=== PATIENT | female | born 1950 ===

== ENCOUNTER 2021-07-19 14:34 | Outpatient (REF) | payer OTHER, SELFPAY ==
--- NOTE | ~2021-07-19 | MM_ITS ---
EXAMINATION: BONE DENSITOMETRY CLINICAL INDICATION: Osteoporosis. COMPARISON: None (current study represents initial baseline exam). TECHNIQUE: Using a [employer] DXA System (software version: 13.1) manufactured by [employer], dual-energy x-ray absorptiometry was performed of the spine and left hip. The images are of good technical quality. Summary results are attached. FINDINGS: AP SPINE L1-L4: BMD 0.998 g/cm2, Z-score 0.4, T-score -1.5, osteopenia. LEFT FEMUR, NECK: BMD 0.743 g/cm2, Z-score -0.3, T-score -2.1, osteopenia. LEFT FEMUR, TOTAL: BMD 0.840 g/cm2, Z-score 0.3, T-score -1.3, osteopenia. IDENTIFIED RISK FACTORS: Low calcium intake, history of fracture (adult), menopause. HISTORY OF FRACTURE: Lower leg. MEDICATIONS: Vitamin D. MM/XR DEXA axial skeleton IMPRESSION: 1. DIAGNOSIS: Osteopenia based on the lowest T-score value of -2.1 in the femoral neck applying World Health Organization criteria. 2. 10-YEAR FRACTURE RISK PREDICTION, FRAX: Major osteoporotic fracture (clinical spine, forearm, hip or shoulder) 11.4%. Hip fracture 2.3%. 3. Treatment Recommendations: NOF guidelines recommend consideration for treatment in postmenopausal women and men age 50 and older presenting with the following: -A hip or vertebral (clinical or morphometric) fracture. -T-score less than or equal to -2.5 at the femoral neck or spine after appropriate evaluation to exclude secondary causes. -Low bone mass at the hip or spine and a 10-year fracture probability by FRAX of greater than or equal to 3% for hip fracture or greater than or equal to 20% for major osteoporotic fracture based on the [place] adapted WHO algorithm. 4. Other Recommendations: All treatment decisions require clinical judgment and consideration of individual patient factors, including patient preferences, comorbidities, previous drug use, risk factors not captured in the FRAX model (e.g. frailty, falls, vitamin D deficiency, increased bone turnover, interval significant decline in bone density) and possible under or overestimation of fracture risk by FRAX. Additional medical evaluation for secondary cause of low bone mineral density may be appropriate. FUTURE SCAN RECOMMENDATION: People with diagnosed cases of osteoporosis or at high risk for fracture should have regular bone mineral density tests. For patients eligible for Medicare, routine testing is allowed once every 2 years. The testing frequency can be increased to one year for patients who have rapidly progressing disease, those who are receiving or discontinuing medical therapy to restore bone mass, or have additional risk factors.
== END 2021-07-19 14:35 | disposition home or self-care (01) ==
LOC: HO.MAMMO 14:34
PROVIDERS: Visit Provider Family Medicine
DX: Z13.820 Encounter for screening for osteoporosis (principal); M85.80 Other specified disorders of bone density and structure, unspecified site; Z78.0 Asymptomatic menopausal state; Z87.81 Personal history of (healed) traumatic fracture; Z79.899 Other long term (current) drug therapy
CPT/HCPCS: 77080

== ENCOUNTER 2021-12-16 14:56 | Outpatient (REF) | payer OTHER, SELFPAY ==
--- NOTE | 2021-12-19 14:53 | MHC.AU.ANO ---
Adult Audiological Evaluation Date of Visit: 12/16/21 Reason for Appointment: Patient has been experiencing right-sided tinnitus. She also reports frequent pain on and around her right pinna. Ear History: Ear Deformity: None Reported Recent Ear Drainage: None Reported Recent Ear Pain: Right Ear Recent Ear Infections: None Reported Ear Infections in Childhood: None Reported History of Ear Wax Buildup: None Reported Previous Ear Surgery: None Reported Bothersome Tinnitus/Ringing/Noises in Ears: Right Ear Ear used on the phone: Both Ears Blocked/Full Sensation in Ear(s): None Reported History of occupational noise exposure?: Yes: [employer] for many years Medical History: Medical History: Head Injury, Heart Problems, High Blood Pressure, Migraines, Vascular Problems Medical History: Patient reports that she has been experiencing pain on the right side of her mouth and jaw since having teeth removed. Medication List: Lisinopril, Furosemide, Motrin, Ezetimibe, Repatha, Singulair, carisoprodol, Flovent, Aspirin Otoscopy: Right Ear: Unremarkable Left Ear: Unremarkable Tympanometry: Tympanometry performed due to: To assess integrity of the middle ear system Right Ear: Reduced Middle Ear Compliance (Type As) Left Ear: Reduced Middle Ear Compliance (Type As) Acoustic Reflexes: Ipsilateral Probe Right: 500 Hz: Present 1000 Hz: Present 2000 Hz: Present 4000 Hz: Present Probe Left: 500 Hz: Present 1000 Hz: Present 2000 Hz: Present 4000 Hz: Present Otoacoustic Emissions Frequency Range Used: 1.6-8 kHz Right Ear Results: Present Emissions Analysis: Present emissions suggest normal cochlear function- Rules out peripheral hearing loss greater than a mild degree Left Ear Results: Present Emissions Analysis: Present emissions suggest normal cochlear function- Rules out peripheral hearing loss greater than a mild degree Hearing Evaluation: Transducer(s) Used: Insert Earphones Method: Conventional Audiometry Stimuli Used: Pure Tones Right Ear: Description of Hearing: Normal hearing from 250-6000 Hz, mild sensorineural hearing loss at 8000 Hz Left Ear: Description of Hearing: Normal hearing from 250-8000 Hz Speech Recognition Threshold (SRT): Method Used: Recorded Lists Stimuli Used: Spondee Words Right Ear: 10 dBHL Left Ear: 10 dBHL Word Discrimination: Method: Recorded Lists Word Lists Used: W-22 Right Ear: 96% at 50 dBHL Left Ear: 100% at 50 dBHL Most Comfortable Level (MCL): Right Ear: 50 dBHL Left Ear: 50 dBHL Recommendations: Referral to Ear, Nose, and Throat may be warranted to further address right-sided tinnitus, right-sided ear pain, and slight asymmetry in hearing. It may also be beneficial to follow-up with the dentist to discuss on-going pain on right side of mouth/jaw, to determine if this may be contributing to patient's right-sided ear pain and tinnitus. Diagnosis: Primary Diagnosis: H93.11 Tinnitus, Right Ear Secondary Diagnosis: H90.41 SNHL Unilateral Right Ear, W/Unrestricted Contralateral Hearing Signature: Provider: Monica Laguna, CCC-A
== END 2021-12-16 14:57 | disposition home or self-care (01) ==
LOC: HO.SH 14:56
PROVIDERS: Visit Provider Family Medicine
DX: H93.11 Tinnitus, right ear (principal); H90.41 Sensorineural hearing loss, unilateral, right ear, with unrestricted hearing on the contralateral side
CPT/HCPCS: 92550; 92557; 92587

== ENCOUNTER 2023-03-30 15:06 | Outpatient (REF) | payer OTHER, SELFPAY ==
[2023-03-30 16:39] LABS: Folate 13.2 ng/mL (> or = 4.0); T4 Thyroxine 7.6 ug/dL (4.5-12.0); Thyroid Stimulating Hormone 1.51 uIU/mL (0.32-4.0); Vitamin B12 314 pg/mL (200-900); Vitamin D 25-OH Total 29.2 ng/mL (>30)
== END 2023-03-30 15:07 | disposition home or self-care (01) ==
LOC: HO.LAB 15:06
PROVIDERS: PCP Family Medicine; Visit Provider Psychiatry & Neurology Neurology
DX: G31.84 Mild cognitive impairment of uncertain or unknown etiology (principal); E55.9 Vitamin D deficiency, unspecified
CPT/HCPCS: 36415; 82306; 82607; 82746; 84436; 84443

== ENCOUNTER 2023-06-07 13:50 | Inpatient (IN) | payer OTHER, SELFPAY ==
[2023-06-07] VITALS (9 sets, daily range): BP systolic 149–198; BP diastolic 73–103; PULSE 71–79; RESP 14–18; TEMP 36.7–37.1; O2SAT 96–99; BMI 22.5
--- NOTE | ~2023-06-07 | MR_ITS ---
MRI OF THE BRAIN WITHOUT IV CONTRAST INDICATION: Vertigo. Rule out CVA. COMPARISON: Head CT 06/07/2023. TECHNIQUE: Multiplanar multisequence MR imaging of the brain was obtained without IV contrast. FINDINGS: There is no hydrocephalus, extra-axial surface collection, or herniation. There are T2 signal changes throughout the supratentorial white matter, likely moderate chronic microangiopathy. The major flow voids at the skull base are preserved. There is no acute infarct on diffusion-weighted imaging. There is no intracranial hemorrhage on the gradient recalled echo acquisition. Punctate focus of chronic hemosiderin staining within the left occipital lobe. The midline structures are normal. The cerebellar tonsils are normally positioned. The cerebellum and brainstem are normal. The craniocervical junction is normal. Osseous marrow signal intensity is homogenous. The visualized soft tissues are unremarkable. MR/MR head/brain wo con IMPRESSION: - No acute intracranial findings. No acute infarcts. - There is moderate chronic microangiopathy.
--- NOTE | ~2023-06-07 | CT_ITS ---
CT head/brain wo IV con CLINICAL INFORMATION: Reason for Exam dizziness since this morning COMPARISON: No prior CT scan available for comparison. TECHNIQUE: Department standard protocol. This CT examination was performed using dose optimization techniques as appropriate, variously including the following: *Automated exposure control *Adjustment of mA and/or kV according to patient size (this includes techniques or standardized protocols for targeted exams where dose is matched to indication/reason for exam; i.e. extremities or head) *Use of iterative reconstruction technique DLP: 679 mGy-cm FINDINGS: CEREBRAL HEMISPHERES: There is no evidence of intra-axial or extra-axial mass, hemorrhage or acute infarct. BRAIN PARENCHYMA: Normal ortiz-white matter differentiation. SUBDURAL SPACE: No bleed. BASAL GANGLIA AND PINEAL GLAND: Unremarkable VENTRICLES: Symmetric and normal in size. CEREBELLUM AND BRAINSTEM: No space-occupying mass, hemorrhage or acute infarct. CEREBELLOPONTINE ANGLES: No lesion found. ORBITS: No intraorbital mass. VESSELS: Unremarkable SKULL BASE: Unremarkable INCLUDED SINUSES AT SKULL BASE: Clear SKULL AND SKIN: No fracture or bone lesion found. CT/CT head/brain wo IV con IMPRESSION: No CT evidence of intracranial space-occupying mass, bleed or infarct.
--- NOTE | ~2023-06-07 | MR_ITS ---
EXAMINATION: MR ANGIOGRAM NECK WITHOUT AND WITH CONTRAST MR ANGIOGRAM HEAD WITHOUT AND WITH CONTRAST CLINICAL INFORMATION: Dizziness. COMPARISON: MR brain 06/08/2023. TECHNIQUE: An MR angiogram of the head and neck was performed without and with contrast. A total of 10 mL Gadavist was utilized for this examination. 3D images were processed on an independent workstation under concurrent supervision. Arterial stenoses are measured in accordance with NASCET criteria or similar method if applicable. FINDINGS: The aortic arch apex is normal. Origins of the major aortic branches are widely patent. Common carotid arteries are normal. A small amount of eccentric atheromatous plaque involves both carotid bifurcations. No stenosis of the extracranial internal carotid arteries. Cervical vertebral arteries are grossly patent and demonstrate normal antegrade flow. Intracranial internal carotid arteries are normal. The intradural vertebral artery segments and basilar artery are normal. Anterior, middle, and posterior cerebral artery complexes are normal. No intracranial large vessel occlusion. No identifiable aneurysm or high flow vascular lesion. MR/MR angio neck wo/w con IMPRESSION: There is a small amount of eccentric atheromatous plaque at both carotid bifurcations. Otherwise unremarkable MR angiogram of the head and neck. No stenosis of the cervical carotid or vertebral arteries. No intracranial large vessel occlusion.
--- NOTE | ~2023-06-07 | MR_ITS ---
EXAMINATION: MR ANGIOGRAM NECK WITHOUT AND WITH CONTRAST MR ANGIOGRAM HEAD WITHOUT AND WITH CONTRAST CLINICAL INFORMATION: Dizziness. COMPARISON: MR brain 06/08/2023. TECHNIQUE: An MR angiogram of the head and neck was performed without and with contrast. A total of 10 mL Gadavist was utilized for this examination. 3D images were processed on an independent workstation under concurrent supervision. Arterial stenoses are measured in accordance with NASCET criteria or similar method if applicable. FINDINGS: The aortic arch apex is normal. Origins of the major aortic branches are widely patent. Common carotid arteries are normal. A small amount of eccentric atheromatous plaque involves both carotid bifurcations. No stenosis of the extracranial internal carotid arteries. Cervical vertebral arteries are grossly patent and demonstrate normal antegrade flow. Intracranial internal carotid arteries are normal. The intradural vertebral artery segments and basilar artery are normal. Anterior, middle, and posterior cerebral artery complexes are normal. No intracranial large vessel occlusion. No identifiable aneurysm or high flow vascular lesion. MR/MR angio head wo/w con IMPRESSION: There is a small amount of eccentric atheromatous plaque at both carotid bifurcations. Otherwise unremarkable MR angiogram of the head and neck. No stenosis of the cervical carotid or vertebral arteries. No intracranial large vessel occlusion.
--- NOTE | 2023-06-07 14:48 | ECG_ITS ---
Test Reason : dizzy Blood Pressure : / mmHG Vent. Rate : 075 BPM Atrial Rate : 075 BPM P-R Int : 150 ms QRS Dur : 072 ms QT Int : 386 ms P-R-T Axes : 056 003 016 degrees QTc Int : 431 ms Normal sinus rhythm Normal ECG When compared with ECG of 04-AUG-2012 19:23, No significant change was found Referred By: Remberto Jones Electronically Signed By:DIANA FISCHER
--- NOTE | 2023-06-07 14:54 | ED.GENADULT ---
HPI - General Adult General Chief complaint: Dizziness Stated complaint: dizziness, near syncope Time Seen by Provider: 06/07/23 15:59 Source: patient Mode of arrival: ambulatory Limitations: no limitations History of Present Illness HPI narrative: patient is a 72-year-old female who presents to the emergency department for evaluation of dizziness and near syncopal episode. Patient reports that today while at [employer] she developed a generalized unwell feeling. Friends were concerned that she did not look well and appeared pale. She said that as the mass proceeded her dizziness sensation was progressively worsening. As a sensation of room spinning. But reports that she was feeling unsteady and like she was going to pass out. Reporting double vision with certain eye movements. The dizziness has been constant since it came on, without tinnitus, nausea. She also was endorsing a posterior headache. Denies any neck pain or neck stiffness. Denies any fevers chills, URI symptoms, chest pain shortness of breath current attending breathing, numbness or tingling of the extremities. Related Data Home Medications Medication Instructions Recorded Confirmed albuterol sulfate 90 mcg/actuation 1 puff inhalation NEEDED PRN 06/07/23 06/07/23 aerosol inhaler Shortness Of Breath aspirin 81 mg capsule 81 mg PO DAILY 06/07/23 06/07/23 carisoprodol 350 mg tablet 350 mg PO BID 06/07/23 06/07/23 carvedilol 6.25 mg tablet 6.25 mg PO BID 06/07/23 06/07/23 ezetimibe 10 mg tablet 10 mg PO DAILY 06/07/23 06/07/23 ferrous sulfate 325 mg (65 mg 325 mg PO 3XW 06/07/23 06/07/23 iron) tablet (iron) furosemide 20 mg tablet 20 mg PO DAILY 06/07/23 06/07/23 inclisiran 284 mg/1.5 mL 284 mg subcut DIRECTED 06/07/23 06/07/23 subcutaneous syringe (Leqvio) melatonin 5 mg capsule 5 mg PO DAILY 06/07/23 06/07/23 mometasone 200 mcg/actuation HFA 2 puff inhalation BID 06/07/23 06/07/23 aerosol inhaler (Asmanex HFA) montelukast 10 mg tablet 10 mg PO DAILY 06/07/23 06/07/23 olmesartan 20 mg tablet 20 mg PO DAILY 06/07/23 06/07/23 omeprazole 20 mg capsule,delayed 20 mg PO BID 06/07/23 06/07/23 release Allergies Allergy/AdvReac Type Severity Reaction Status Date / Time acetaminophen [From TYLENOL] Allergy Intermediate ITCHING Verified 06/07/23 21:17 epinephrine [EPINEPHRINE] Allergy Intermediate TACHYCARDIA Verified 06/07/23 21:17 iodine [IODINE] Allergy Intermediate RASH Verified 06/07/23 21:17 Penicillins [PENICILLINS] Allergy Intermediate ITCHING/HIV Verified 06/07/23 21:17 ES Sulfa (Sulfonamide Allergy Intermediate NAUSEA Verified 06/07/23 21:17 Antibiotics) [SULFA (SULFONAMIDE ANTIBIOTICS)] egg [EGG] Allergy Mild SENSITIVITY Verified 06/07/23 21:17 diclofenac [DICLOFENAC] Allergy Unknown HIVES Verified 06/07/23 21:17 levofloxacin [From LEVAQUIN] Allergy Unknown SEVERE Verified 06/07/23 21:17 ITCHING meperidine [Demerol] Allergy Unknown Rash Verified 06/07/23 21:17 penicillin V Allergy Unknown Rash Verified 06/07/23 21:17 procaine [From NOVOCAIN] Allergy Unknown UNKNOWN Verified 06/07/23 21:17 SHELLFISH Allergy Severe ANAPHYLAXIS Uncoded 07/05/20 17:09 eggs Allergy Unknown Rash Uncoded 06/07/23 21:17 Novocain Allergy Unknown Rash Uncoded 06/07/23 21:17 From DEMEROL AdvReac Intermediate HYPOTENSION Uncoded 07/05/20 17:09 Review of Systems Review of Systems: Constitutional : No Fever, No Chills, No Fatigue ENT/Mouth : No sore throat, No Rhinorrhea Eyes: No Eye Pain, No Swelling, No Redness, positive double vision Cardiovascular : No Chest Pain, No SOB, No Dyspnea on Exertion Respiratory : No Cough, No Sputum Gastrointestinal : No Nausea, No Vomiting, No Diarrhea, No abdominal Pain Genitourinary : No Dysuria, No Urinary Frequency, No Hematuria, Musculoskeletal : No joint pain, No Myalgias, No Joint Swelling Skin : No Skin Lesions, No rash Neuro : Positive dizziness. No Weakness, No Numbness, positive Headache Psych : No Anxiety/Panic, No Depression Heme/Lymph: No Bruising, No Bleeding, No Lymphadenopathy Endocrine : No Polyuria, No Polydipsia Yes all other systems are reviewed and are negative [facility] Past Medical History Attestation statement: The following information was validated with the patient. Source: old records reviewed Medical History Asthma COVID-19 long hauler Fibromyalgia GERD (gastroesophageal reflux disease) Hyperlipidemia Hypertension Hypoglycemia Lupus Mitral valve prolapse Social History Social History Household Members: Spouse Housing: House Do you presently have visiting nurse or other home services: No Alcohol intake: never Patient Tobacco Use Status: Never used Tobacco e-Cigarette/Vaping Use: Never Used Second Hand Smoke Exposure: No Advance Directives Date on File: 06/08/23 service: No Physical Exam ED Vital Signs: Vital Signs - 24 hr 06/07/23 14:43 06/07/23 15:02 06/07/23 16:29 Temperature 98.8 F 98.2 F Pulse Rate 79 78 75 Respiratory Rate 18 16 Blood Pressure 163/73 H 198/92 H 167/83 H Pulse Oximetry 99 99 Oxygen Delivery Method Room Air Room Air 06/07/23 16:31 06/07/23 16:31 06/07/23 18:08 Temperature 98.0 F Pulse Rate 77 78 71 Respiratory Rate 14 Blood Pressure 176/82 H 194/91 H 149/74 H Pulse Oximetry 96 Oxygen Delivery Method Room Air 06/07/23 19:09 06/07/23 19:10 06/07/23 19:11 Temperature Pulse Rate 74 72 76 Respiratory Rate Blood Pressure 174/83 H 195/102 H 174/103 H Pulse Oximetry Oxygen Delivery Method BMI result Body Mass Index 22.5 Appearance: Alert.?Oriented to person, place and time. No acute distress.?Normal affect. Eyes: Pupils equal, round and reactive to light.?EOMi. gaze evoked Phobia. ENT: Pharynx normal.?? Neck: Normal inspection.? Neck supple.?? no midline cervical spine tenderness, step-offs, deformities CVS: Heart sounds normal. Normal heart rate and rhythm.? Pulses normal.?? Respiratory: No respiratory distress.? Lung sounds clear to auscultation bilaterally?? Abdomen: Soft and non-tender. Normoactive bowel sounds. Skin: Skin warm and dry.? Normal skin color.? Extremities: No lower extremity edema.? No calf ttp? Neuro: No focal neurological deficit observed, CN II-XII intact, normal sensory observed, normal coordination observed. Level of consciousness: Appropriate for age. Motor strength: Proximal right upper extremity 5 /5, distal right upper extremity 5 /5, proximal left upper extremity 5 /5, distal left upper extremity 5 /5, right lower extremity 5 /5, left lower extremity 5 /5.? ataxic gait. Speech: Normal, [id number] test: abnormal on left, [id number] test: Normal. Course Course Course Narrative: RME: 72 yold female presents to the ED for dizziness since this morning and near synocpa episode that occurred at 12:30pm. Patient states she she leans her head down she feeel like she is about to fall. Neuro assesment negative for any neuro deficits. NIH 0. Rhomberg test negative. Eye exam checking for nystagmus she states left eye seeing double on left horizontal nygstamgus test. labs, head CT, and EKg ordered. Patient being brought to the ED to a room by charge nurse Amber. Reevaluation(s) Reevaluation #1: CBC is without leukocytosis or anemia. CMP is overall unremarkable. EKG revealing normal sinus rhythm, no acute ischemic abnormalities. Urinalysis unremarkable. Orthostatic vital signs are negative. CT of the head is without acute intracranial abnormality. Trial management with meclizine and and lorazepam been re-evaluated. Time: 17:13 Reevaluation #2: minimal improvement in dizziness despite meclizine and lorazepam, although she does endorse that her posterior headache has improved. continued concern for a posterior CVA given intractable dizziness; headache, diplopia, and ataxia, patient to be admitted to medicine service for further evaluation and treatment, accepted by Dr. Brunner Time: 20:17 Medications Administered Generic Name Dose Route Start Last Admin Trade Name Freq PRN Reason Stop Dose Admin Aspirin 81 mg 06/08/23 09:00 06/08/23 09:53 Aspirin 81 Mg Tab.Chew PO 81 mg DAILY KARSTEN Administration Atorvastatin Calcium 40 mg 06/08/23 09:00 06/08/23 09:53 Atorvastatin Calcium 40 Mg Tablet PO 40 mg DAILY KARSTEN Administration Ezetimibe 10 mg 06/08/23 09:00 06/08/23 09:52 Ezetimibe 10 Mg Tablet PO 10 mg DAILY KARSTEN Administration Enoxaparin Sodium 40 mg 06/07/23 22:00 06/07/23 21:42 Enoxaparin Sodium 40 Mg/0.4 Ml Syringe SUBCUT 40 mg Q24H KARSTEN Administration Ferrous Sulfate 324 mg 06/08/23 09:00 06/08/23 09:52 Ferrous Sulfate 324 Mg Tablet. PO 324 mg MoWeFr@0900 KARSTEN Administration Furosemide 20 mg 06/08/23 09:00 06/08/23 09:53 Furosemide 20 Mg Tablet PO 20 mg DAILY KARSTEN Administration Protocol Omeprazole 20 mg 06/08/23 06:30 06/08/23 06:33 Omeprazole 20 Mg Capsule. PO 20 mg BID@0630,1630 KARSTEN Administration Sodium Chloride 3 ml 06/08/23 00:00 06/08/23 09:35 0.9 % Sodium Chloride Flush 3 Ml Syringe IVFLUSH Not Given QSHIFT KARSTEN Discontinued Medications Generic Name Dose Route Start Last Admin Trade Name Freq PRN Reason Stop Dose Admin Aspirin 324 mg 06/07/23 21:33 06/07/23 21:43 Aspirin 81 Mg Tab.Chew PO 06/07/23 21:34 324 mg ONCE ONE Administration Lorazepam 2 mg 06/07/23 16:59 06/07/23 17:18 Lorazepam 1 Mg Tablet PO 06/07/23 17:00 2 mg ONCE ONE Administration Meclizine HCl 25 mg 06/07/23 16:59 06/07/23 17:18 Meclizine Hcl 25 Mg Tablet PO 06/07/23 17:00 25 mg ONCE ONE Administration Medical Decision Making Medical Decision Making [facility] Narrative: patient is a 72-year-old female with past medical history of GERD, hypertension, hyperlipidemia presenting to emergency department for evaluation of dizziness. orthostatic negative, no focal neuro deficits, no spontaneous nystagmus, dysarthria, dysphagia, dysphonia, dysmetria. Will obtain CBC to evaluate for leukocytosis/ anemia, CMP to evaluate for abnormal electrolytes /abnormal renal function/ abnormal hepatic function, EKG and troponin to evaluate for ischemia/ACS. concern at this time for BPPV verses central etiology, potential cerebellar stroke. Onset was not abrupt, progressively worsening and have been constant sources episodic. Reviewed this case with ED attending Dr. Campo, Will trial treatment with meclizine and lorazepam while awaiting studies then re-evaluate. Differential Diagnosis Differential Diagnoses: The differential diagnosis associated with the presentation includes ( CVA, cerebellar dysfunction, , [employer] mass, vertigo, electrolyte abnormality, anemia) Admission/Observation Consideration of admission/observation: Escalation of care including admission/observation considered ( I considered admission for dizziness, see course narrative for further detail) Consult Healthcare Provider Management of the patient was discussed with: Hospitalist ( see course narrative for further detail) Lab Data MDM Lab Attestation statement: I reviewed the patient's lab results. ( see course narrative for further detail) 06/07/23 16:15 06/07/23 16:15 Labs: Lab Results 06/07/23 06/07/23 06/07/23 Range/Units 15:37 16:15 16:15 WBC 6.5 (4.8-10.8) X10*3/uL RBC 4.80 (4.20-5.50) X10*6/uL Hgb 13.1 (12.0-16.0) g/dl Hct 41.2 (37.0-47.0) % MCV 85.8 (80.0-98.0) fL MCH 27.3 (27.0-33.0) pg MCHC 31.8 (31.0-35.0) g/dl RDW 12.8 (11.0-16.0) % Plt Count 236 (160-400) X10*3/uL MPV 9.6 (9.4-12.3) fL Immature Gran % (Auto) 0.3 (0.0-0.4) % Neut % (Auto) 68.1 (45-73) % Lymph % (Auto) 21.3 (20-40) % [place] % (Auto) 7.3 (2-11) % Eos % (Auto) 2.5 (0-4) % Baso % (Auto) 0.5 (0-2) % Lymph # (Auto) 1.4 (1.2-4.9) X10*3/uL [place] # (Auto) 0.5 (0.1-1.2) X10*3/uL Eos # (Auto) 0.2 (0.0-0.4) X10*3/uL Baso # (Auto) 0.0 (0.0-0.2) X10*3/uL Abs Immat Gran (auto) 0.02 (0.00-0.03) X10*3/uL Absolute Neuts (auto) 4.4 (2.0-8.3) x10*3/uL Absolute Nucleated RBC 0.000 (0.0-0.012) X10*3/uL Nucleated RBC % (auto) 0.0 (0.0-0.2) /100WBC PT (11.1-13.3) SEC INR (0.9-1.1) APTT (26.0-36.4) SEC Sodium 142 (135-145) mmol/L Potassium 3.6 (3.3-5.1) mmol/L Chloride 108 (96-108) mmol/L Carbon Dioxide 25 (22-29) mmol/L Anion Gap 13 (12-20) BUN 12 (9-16) mg/dL Creatinine 0.78 (0.5-1.4) mg/dL Estim Creat Clear Calc 52.3 Estimated GFR > 60 POC Glucose 125 H (60-115) mg/dL Random Glucose 130 H (60-115) mg/dL Calcium 9.5 (8.4-10.2) mg/dL Total Bilirubin 0.2 (0.0-1.0) mg/dL AST 25 (5-31) U/L ALT 20 (0-31) U/L Alkaline Phosphatase 87 (39-117) U/L Total Protein 6.9 (6.5-8.0) g/dL Albumin 4.1 (3.5-5.0) g/dL Triglycerides 155 mg/dL Cholesterol 125 mg/dL LDL Cholesterol, Calc 43 mg/dl HDL Cholesterol 51 mg/dL Urine Color Urine Appearance Urine pH (5.0-9.0) Ur Specific [place] (1.005-1.025) Urine Protein (Neg-Trace) mg/dL Urine Glucose (UA) (Negative) mg/dL Urine Ketones (Negative) mg/dL Urine Blood (Negative) Urine Nitrite (Negative) Ur Leukocyte Esterase (Negative) Influenza Type A (PCR) (Negative) Influenza Type B (PCR) (Negative) RSV RNA Qual (PCR) (Negative) SARS-CoV-2 RNA (RT-PCR) (Negative) 06/07/23 06/07/23 06/07/23 Range/Units 16:50 19:20 20:46 WBC (4.8-10.8) X10*3/uL RBC (4.20-5.50) X10*6/uL Hgb (12.0-16.0) g/dl Hct (37.0-47.0) % MCV (80.0-98.0) fL MCH (27.0-33.0) pg MCHC (31.0-35.0) g/dl RDW (11.0-16.0) % Plt Count (160-400) X10*3/uL MPV (9.4-12.3) fL Immature Gran % (Auto) (0.0-0.4) % Neut % (Auto) (45-73) % Lymph % (Auto) (20-40) % [place] % (Auto) (2-11) % Eos % (Auto) (0-4) % Baso % (Auto) (0-2) % Lymph # (Auto) (1.2-4.9) X10*3/uL [place] # (Auto) (0.1-1.2) X10*3/uL Eos # (Auto) (0.0-0.4) X10*3/uL Baso # (Auto) (0.0-0.2) X10*3/uL Abs Immat Gran (auto) (0.00-0.03) X10*3/uL Absolute Neuts (auto) (2.0-8.3) x10*3/uL Absolute Nucleated RBC (0.0-0.012) X10*3/uL Nucleated RBC % (auto) (0.0-0.2) /100WBC PT 11.2 (11.1-13.3) SEC INR 0.9 (0.9-1.1) APTT 33.2 (26.0-36.4) SEC Sodium (135-145) mmol/L Potassium (3.3-5.1) mmol/L Chloride (96-108) mmol/L Carbon Dioxide (22-29) mmol/L Anion Gap (12-20) BUN (9-16) mg/dL Creatinine (0.5-1.4) mg/dL Estim Creat Clear Calc Estimated GFR POC Glucose (60-115) mg/dL Random Glucose (60-115) mg/dL Calcium (8.4-10.2) mg/dL Total Bilirubin (0.0-1.0) mg/dL AST (5-31) U/L ALT (0-31) U/L Alkaline Phosphatase (39-117) U/L Total Protein (6.5-8.0) g/dL Albumin (3.5-5.0) g/dL Triglycerides mg/dL Cholesterol mg/dL LDL Cholesterol, Calc mg/dl HDL Cholesterol mg/dL Urine Color Yellow Urine Appearance Clear Urine pH 7.5 (5.0-9.0) Ur Specific [place] 1.010 (1.005-1.025) Urine Protein Negative (Neg-Trace) mg/dL Urine Glucose (UA) Negative (Negative) mg/dL Urine Ketones Negative (Negative) mg/dL Urine Blood Negative (Negative) Urine Nitrite Negative (Negative) Ur Leukocyte Esterase Negative (Negative) Influenza Type A (PCR) NEGATIVE (Negative) Influenza Type B (PCR) NEGATIVE (Negative) RSV RNA Qual (PCR) NEGATIVE (Negative) SARS-CoV-2 RNA (RT-PCR) NEGATIVE (Negative) Independent Interpretation I performed an independent interpretation of an: EKG Interpretation: Rate: 75 Rhythm:? normal sinus rhythm [place]:? normal Normal P waves.? Normal BOB.?? Normal QRS complex.?? ST T wave :?? no ST elevation, no ST depression, no T-wave inversion qTC: 431 The study has been interpreted contemporaneously by me. Radiology Impression Discussion of test interpretation with radiology: I have reviewed the radiologist's reading. Radiologist Impression: CT/CT head/brain wo IV con IMPRESSION: No CT evidence of intracranial space-occupying mass, bleed or infarct. Discharge Plan Discharge Clinical Impression: Dizziness Patient Disposition: Admitted As Inpatient Interventions: Admission Worksheet (ED) Last Done: 06/08/23 10:01 Discharge Date/Time: 06/08/23 10:01
--- NOTE | 2023-06-07 15:18 | PC.NURSE ---
pt coming from home, reports a few hours of headache, dizziness, lightheaded, difficulty walking, weak/tired, heart palpitations, and wandering vision. pt appears pale, daughter at bedside states pt was very ortiz earlier today and some color has returned. daughter reports pt almost passed out but she never fell or lost consciousness. pt did eat today, no nausea or vomiting.
[2023-06-07 15:46] LABS: Glucose, Whole Blood 125 mg/dL (60-115)
[2023-06-07 16:22] LABS: MANUAL DIFF FLAG NO
[2023-06-07 16:24] LABS: Basophils Percent Auto 0.5 % (0-2); Eosinophils Absolute Auto 0.2 X10*3/uL (0.0-0.4); Eosinophils Percent Auto 2.5 % (0-4); Hematocrit 41.2 % (37.0-47.0); Hemoglobin 13.1 g/dl (12.0-16.0); Imm Gran Abs Auto 0.02 X10*3/uL (0.00-0.03); Imm Gran Pct Auto 0.3 % (0.0-0.4); Lymphocytes Absolute Auto 1.4 X10*3/uL (1.2-4.9); Lymphocytes Percent Auto 21.3 % (20-40); Mean Corpuscular HGB Conc 31.8 g/dl (31.0-35.0); Mean Corpuscular Hemoglobin 27.3 pg (27.0-33.0); Mean Corpuscular Volume 85.8 fL (80.0-98.0); Mean Platelet Volume 9.6 fL (9.4-12.3); Monocytes Absolute Auto 0.5 X10*3/uL (0.1-1.2); Monocytes Percent Auto 7.3 % (2-11); Neutrophils Absolute Auto 4.4 x10*3/uL (2.0-8.3); Neutrophils Percent Auto 68.1 % (45-73); Platelet Count 236 X10*3/uL (160-400); Red Cell Distribution Width 12.8 % (11.0-16.0); White Blood Count 6.5 X10*3/uL (4.8-10.8)
[2023-06-07 16:53] LABS: Alanine Aminotransferase 20 U/L (0-31); Albumin Level 4.1 g/dL (3.5-5.0); Alkaline Phosphatase 87 U/L (39-117); Anion Gap 13 (12-20); Aspartate Amino Transferase 25 U/L (5-31); Bilirubin Total 0.2 mg/dL (0.0-1.0); Blood Urea Nitrogen 12 mg/dL (9-16); Calcium 9.5 mg/dL (8.4-10.2); Carbon Dioxide 25 mmol/L (22-29); Chloride 108 mmol/L (96-108); Creatinine Clr Calc Pharmacy 52.3; Estimated Glomerular Filt Rate > 60; Glucose Random 130 mg/dL (60-115); Potassium 3.6 mmol/L (3.3-5.1); Sodium 142 mmol/L (135-145); Total Protein 6.9 g/dL (6.5-8.0)
[2023-06-07 17:15] LABS: INTERNATIONAL NORM RATIO 0.9 (0.9-1.1); Prothrombin Time 11.2 SEC (11.1-13.3)
[2023-06-07 17:17] LABS: Partial Thromboplastin Time 33.2 SEC (26.0-36.4)
[2023-06-07] MEDS: Meclizine HCl 25 MG TABLET PO (17:18)
[2023-06-07] MEDS: LORazepam 1 MG TABLET 2 MG PO (17:18)
--- NOTE | 2023-06-07 19:08 | PC.NURSE ---
Assumed care of pt. Pt endorsing continued symptoms of dizziness primarily when changing positions, moving head around. Performed additoinal set of orthostatis pressures, with increase of SBP during sitting, with increase of DBP with sitting and standing. pt with weakness standing during assessment.
[2023-06-07 19:30] LABS: Appearance Urine Clear; Color Urine Yellow; Glucose Urine UA Negative (Negative); Leukocyte Esterase Urine Negative (Negative); Nitrite Urine Negative (Negative); PH 7.5 (5.0-9.0); Urine Blood Negative (Negative); Urine Ketones Negative (Negative); Urine Protein Negative (Neg-Trace)
--- NOTE | 2023-06-07 21:08 | P.HPHOSP_ITS ---
History of Present Illness Date of Service: 06/07/23 Attending physician on admission: Ramy Brunner Chief Complaint: dizziness 72 year old female with history of lupus, htn, hld, asthma, hypoglycemia, long covid, history MVP, and gerd presents to the ED with her daughter, Juliane, for evaluation of intractable dizziness that started around 1230 today while at [employer]. Describes a lightheadedness that worsens with head movements. States she feels like she is going to fall with head movements and has had difficulty with balance reported by her daughter. She was told by several people at [facility] that she did not look well with pallor. She tells me she also has been experiencing diplopia particularly with right-sided gaze. She also has a posterior headache. There is no associated nausea or vomiting. She denies any blurred vision, room spinning sensation, unilateral weakness or paresthesias, dysphagia, facial droop, or slurred speech. Denies any history of similar symptoms. She also tells me that her blood pressures have been elevated with systolic pressure 160- 170 is for the last few weeks despite compliance with medications. She was given both meclizine and lorazepam in the ED without any affect on her dizziness. Of note, she did have a tick bite recently. On arrival, vital within normal limits except hypertensive to 194/91. Orthostatic vital signs were performed twice and were negative. Hematology studies unremarkable. Coagulation studies normal. Renal function normal, electrolytes levels normal. Urinalysis unremarkable. COVID-19, influenza, RSV pending. Head CT negative for any acute intracranial abnormality. No smoking history, illicit drug, or alcohol use. Review of Systems Review of Systems: General: No fevers, malaise, unintentional weight loss HEENT: +diplopia. No blurred vision. No sore throat, nasal congestion, rhinorrhea, sinus pain, ear pain Cardiovascular: No chest pain, palpitations, or leg edema Respiratory: No shortness of breath, wheezing, cough GI: No abdominal pain, nausea, vomiting, diarrhea, constipation, melena, hematoc hezia : No dysuria, hematuria, increased urinary frequency, decreased urinary output MSK: No myalgia, back pain Neuro: No headaches, weakness, paresthesias. +dizziness Skin: No rashes or lesions [facility] Medical History (Updated 06/07/23 @ 21:25 by LELIA Talley) Asthma COVID-19 long hauler Fibromyalgia GERD (gastroesophageal reflux disease) Hyperlipidemia Hypertension Hypoglycemia Lupus Mitral valve prolapse Social History Alcohol intake: never Patient Tobacco Use Status: Never used Tobacco Meds Allergies Allergy/AdvReac Type Severity Reaction Status Date / Time acetaminophen [From TYLENOL] Allergy Intermediate ITCHING Verified 06/07/23 21:17 epinephrine [EPINEPHRINE] Allergy Intermediate TACHYCARDIA Verified 06/07/23 21:17 iodine [IODINE] Allergy Intermediate RASH Verified 06/07/23 21:17 Penicillins [PENICILLINS] Allergy Intermediate ITCHING/HIV Verified 06/07/23 21:17 ES Sulfa (Sulfonamide Allergy Intermediate NAUSEA Verified 06/07/23 21:17 Antibiotics) [SULFA (SULFONAMIDE ANTIBIOTICS)] egg [EGG] Allergy Mild SENSITIVITY Verified 06/07/23 21:17 diclofenac [DICLOFENAC] Allergy Unknown HIVES Verified 06/07/23 21:17 levofloxacin [From LEVAQUIN] Allergy Unknown SEVERE Verified 06/07/23 21:17 ITCHING meperidine [Demerol] Allergy Unknown Rash Verified 06/07/23 21:17 penicillin V Allergy Unknown Rash Verified 06/07/23 21:17 procaine [From NOVOCAIN] Allergy Unknown UNKNOWN Verified 06/07/23 21:17 SHELLFISH Allergy Severe ANAPHYLAXIS Uncoded 07/05/20 17:09 eggs Allergy Unknown Rash Uncoded 06/07/23 21:17 Novocain Allergy Unknown Rash Uncoded 06/07/23 21:17 From DEMEROL AdvReac Intermediate HYPOTENSION Uncoded 07/05/20 17:09 Active Medications: Current Medications Aspirin (Aspirin 325 Mg Tablet) 325 mg PO DAILY KARSTEN Atorvastatin Calcium (Atorvastatin Calcium 40 Mg Tablet) 40 mg PO DAILY KARSTEN Docusate Sodium (Docusate Sodium 100 Mg Capsule) 100 mg PO DAILY PRN PRN Reason: Constipation Enoxaparin Sodium (Enoxaparin Sodium 40 Mg/0.4 Ml Syringe) 40 mg SUBCUT Q24H KARSTEN Ondansetron HCl (Ondansetron Hcl 4 Mg/2 Ml Vial) 4 mg IVPUSH Q8H PRN PRN Reason: Nausea and Vomiting Pharmacy Consult (Consult Rx Perform Med Rec) 1 each MISCELLANE ONCE PRN PRN Reason: Consult order Sodium Chloride (0.9 % Sodium Chloride Flush 3 Ml Syringe) 3 ml IVFLUSH QSHIFT FOR[facility], [facility]–1983 Home Medications Medication Instructions Recorded Confirmed Last Taken Type albuterol sulfate 90 mcg/actuation 1 puff inhalation NEEDED PRN 06/07/23 06/07/23 Unknown History aerosol inhaler Shortness Of Breath aspirin 81 mg capsule 81 mg PO DAILY 06/07/23 06/07/23 Unknown History carisoprodol 350 mg tablet 350 mg PO BID 06/07/23 06/07/23 Unknown History carvedilol 6.25 mg tablet 6.25 mg PO BID 06/07/23 06/07/23 Unknown History ezetimibe 10 mg tablet 10 mg PO DAILY 06/07/23 06/07/23 Unknown History ferrous sulfate 325 mg (65 mg 325 mg PO 3XW 06/07/23 06/07/23 Unknown History iron) tablet (iron) furosemide 20 mg tablet 20 mg PO DAILY 06/07/23 06/07/23 Unknown History inclisiran 284 mg/1.5 mL 284 mg subcut DIRECTED 06/07/23 06/07/23 Unknown History subcutaneous syringe (Leqvio) melatonin 5 mg capsule 5 mg PO DAILY 06/07/23 06/07/23 Unknown History mometasone 200 mcg/actuation HFA 2 puff inhalation BID 06/07/23 06/07/23 Unknown History aerosol inhaler (Asmanex HFA) montelukast 10 mg tablet 10 mg PO DAILY 06/07/23 06/07/23 Unknown History olmesartan 20 mg tablet 20 mg PO DAILY 06/07/23 06/07/23 Unknown History omeprazole 20 mg capsule,delayed 20 mg PO BID 06/07/23 06/07/23 Unknown History release Physical Exam Vital Signs and Narrative: Vital Signs: Last Vital Signs Temp 98.0 F 06/07/23 18:08 Pulse 76 06/07/23 19:11 Resp 14 06/07/23 18:08 BP 174/103 H 06/07/23 19:11 Pulse Ox 96 06/07/23 18:08 O2 Del Method Room Air 06/07/23 18:08 BMI result Body Mass Index 22.5 Constitutional - Awake and Alert, No apparent distress Eyes - PERRLA, EOMI Cardiovascular - S1S2, RRR, No edema Respiratory - Normal lung expansion, Normal respiratory effort, No respiratory distress, CTA bilaterally Extremities - no calf tenderness bilaterally, no swelling Skin - Warm/Dry Neurological - Alert & oriented x3, diplopia with EOMs, otherwise CN II-XII in tact, no nystagmus, poor left sided coordination with finger to nose testing. +romberg test, +gait ataxia nearly falling to right, 5/5 strength BUE and BLE Psychological - Appropriate affect Results Labs 06/07/23 16:15 06/07/23 16:15 Labs: Laboratory Results - last 24 hr 06/07/23 06/07/23 06/07/23 15:37 16:15 16:15 MCV 85.8 MCH 27.3 MCHC 31.8 RDW 12.8 Plt Count 236 MPV 9.6 Immature Gran % (Auto) 0.3 Neut % (Auto) 68.1 Lymph % (Auto) 21.3 Mcnairy % (Auto) 7.3 Eos % (Auto) 2.5 Baso % (Auto) 0.5 Lymph # (Auto) 1.4 Mcnairy # (Auto) 0.5 Eos # (Auto) 0.2 Baso # (Auto) 0.0 Abs Immat Gran (auto) 0.02 Absolute Neuts (auto) 4.4 Absolute Nucleated RBC 0.000 Nucleated RBC % (auto) 0.0 PT INR APTT Anion Gap 13 Estim Creat Clear Calc 52.3 Estimated GFR > 60 POC Glucose 125 H Random Glucose 130 H Calcium 9.5 Total Bilirubin 0.2 AST 25 ALT 20 Alkaline Phosphatase 87 Total Protein 6.9 Albumin 4.1 Urine Color Urine Appearance Urine pH Ur Specific [employer] Urine Protein Urine Glucose (UA) Urine Ketones Urine Blood Urine Nitrite Ur Leukocyte Esterase 06/07/23 06/07/23 16:50 19:20 MCV MCH MCHC RDW Plt Count MPV Immature Gran % (Auto) Neut % (Auto) Lymph % (Auto) Mcnairy % (Auto) Eos % (Auto) Baso % (Auto) Lymph # (Auto) Mcnairy # (Auto) Eos # (Auto) Baso # (Auto) Abs Immat Gran (auto) Absolute Neuts (auto) Absolute Nucleated RBC Nucleated RBC % (auto) PT 11.2 INR 0.9 APTT 33.2 Anion Gap Estim Creat Clear Calc Estimated GFR POC Glucose Random Glucose Calcium Total Bilirubin AST ALT Alkaline Phosphatase Total Protein Albumin Urine Color Yellow Urine Appearance Clear Urine pH 7.5 Ur Specific [employer] 1.010 Urine Protein Negative Urine Glucose (UA) Negative Urine Ketones Negative Urine Blood Negative Urine Nitrite Negative Ur Leukocyte Esterase Negative Imaging Radiologist's Impressions: Impressions Head CT 06/07/23 15:30 IMPRESSION: No CT evidence of intracranial space-occupying mass, bleed or infarct. Assessment and Plan (1) Dizziness: Status: Acute Plan 72 year old female with history of lupus, htn, hld, asthma, hypoglycemia, long covid, history MVP, and gerd to be admitted for intractable dizziness with concern for posterior CVA. #Intractable dizziness- Concern for Posterior CVA vs medication related -pt denies room spinning but describes unsteady balance and worsening of symptoms like she will fall with head movements. Associated with posterior headache, diplopia, poor coordination with finger to nose on left, +romberg, and gait ataxia -Head CT negative for acute abnormality -MRI ordered -Nursing bedside swallow eval passed -Give asa 325mg now, continue asa 81mg daily -Lipid panel pending. Atorvastatin 40mg daily -Echo -Neuro consult -Meclizine for symptomatic relief -hold soma -monitor on telemetry #HTN -uncontrolled with SBP 190 -Hold antihypertensives at this time in setting possible cva #Mild Persistent asthma -no acute exacerbation -continue Flovent, albuterol p.r.n. #HLD -contineu zetia, hold leqvio -initial atorvastatin # hypoglycemia -etiology unclear -POC glucose #Tick bite- several weeks ago -less likely r/t symptoms -check tick panel DVT prophylaxis-Lovenox Full code Patient requires inpatient stay at least 2 midnights for management of intractable dizziness with concern for posterior CVA based on exam findings warranting further evaluation, close monitoring, an expert consultation Time Spent With Patient Time: Total time managing care of this patient today ____ minutes. Quality Stroke Does the patient have a stroke diagnosis?: Yes Reason for No Anti-thrombotic by Day Two: Drug treatment not indicated VTE Prior VTE?: No VTE Risk Level:: Medical - moderate - high VTE Device Contraindication: Treatment Not Indicated VTE Drug Contraindication: N/A - Med Ordered
[2023-06-07 21:31] LABS: Influenza A PCR NEGATIVE (Negative); Influenza B PCR NEGATIVE (Negative); Resp Syncy Virus RNA Qual PCR NEGATIVE (Negative); SARS COV2 PCR INHOUSE NEGATIVE (Negative)
[2023-06-07] MEDS: Enoxaparin Sodium 40 MG/0.4 ML SYRINGE SUBCUT (21:42)
[2023-06-07] MEDS: Aspirin 81 MG TAB.CHEW 324 MG PO (21:43)
[2023-06-07 21:48] LABS: Cholesterol 125 mg/dL; HDL Cholesterol 51 mg/dL; LDL Cholesterol Calculated 43 mg/dl; Triglycerides 155 mg/dL
[2023-06-08] VITALS (9 sets, daily range): BP systolic 128–196; BP diastolic 80–96; PULSE 64–76; RESP 14–18; TEMP 36.5–36.7; O2SAT 95–98
[2023-06-08] MEDS: 0.9 % Sodium Chloride Flush 3 ML SYRINGE IVFLUSH ×2 (00:02→16:52)
[2023-06-08 05:14] LABS: MANUAL DIFF FLAG NO
[2023-06-08 05:15] LABS: Basophils Percent Auto 0.5 % (0-2); Eosinophils Absolute Auto 0.2 X10*3/uL (0.0-0.4); Hematocrit 40.1 % (37.0-47.0); Hemoglobin 12.9 g/dl (12.0-16.0); Imm Gran Abs Auto 0.02 X10*3/uL (0.00-0.03); Imm Gran Pct Auto 0.3 % (0.0-0.4); Lymphocytes Absolute Auto 1.7 X10*3/uL (1.2-4.9); Lymphocytes Percent Auto 29.8 % (20-40); Mean Corpuscular HGB Conc 32.2 g/dl (31.0-35.0); Mean Corpuscular Hemoglobin 28.1 pg (27.0-33.0); Mean Corpuscular Volume 87.4 fL (80.0-98.0); Mean Platelet Volume 9.8 fL (9.4-12.3); Monocytes Absolute Auto 0.5 X10*3/uL (0.1-1.2); Monocytes Percent Auto 8.1 % (2-11); Neutrophils Absolute Auto 3.3 x10*3/uL (2.0-8.3); Neutrophils Percent Auto 57.3 % (45-73); Platelet Count 224 X10*3/uL (160-400); Red Blood Count 4.59 X10*6/uL (4.20-5.50); White Blood Count 5.8 X10*3/uL (4.8-10.8)
[2023-06-08 05:31] LABS: Anion Gap 14 (12-20); Blood Urea Nitrogen 10 mg/dL (9-16); Calcium 9.4 mg/dL (8.4-10.2); Carbon Dioxide 23 mmol/L (22-29); Chloride 109 mmol/L (96-108); Creatinine Clr Calc Pharmacy 59.1; Estimated Glomerular Filt Rate > 60; Glucose Random 94 mg/dL (60-115); Potassium 3.6 mmol/L (3.3-5.1); Sodium 142 mmol/L (135-145)
[2023-06-08] MEDS: Omeprazole 20 MG CAPSULE.DR PO ×2 (06:33→16:52)
--- NOTE | 2023-06-08 07:00 | CA_ITS ---
Transthoracic Echocardiogram Patient (Last, First, Middle): Alexandra Harris, Gender: Female Date of : 1950 Age: 72 Procedure Date: 06/08/2023 Procedure Type: Transthoracic [place]ocardiogram [place] [facility] [place]: 157. cm Weight: 55.79 kg BSA: 1.55 m2 Heart Rate: 75 bpm BP: 152 / 85 mmHg [employer] Officer: [place] Referring MD: May ROWELL Symptoms: ?CVA Study Quality: Adequate ECG Rhythm: Sinus Conclusions: - The left ventricular systolic function is normal. The calculated ejection fraction is 66% by biplane method. - No obvious valvular pathology seen on this study. Findings Left Ventricle Normal left ventricular cavity size. The left ventricular systolic function is normal. The calculated ejection fraction is 66% by biplane method. There is no evidence of regional wall motion abnormalities. Evidence suggests grade I (mild) diastolic dysfunction. There is mild septal asymmetric hypertrophy. LV peak GLS -18.5%. Right Ventricle Normal right ventricular cavity size and systolic function. Atria Both atria are normal in size. Aortic Valve There is mild calcification of the aortic valve. There is no aortic valve stenosis. There is no aortic valve regurgitation. Mitral Valve There is mild mitral annular calcification. There is trace mitral valve regurgitation. There is no mitral valve stenosis. Pulmonic Valve The pulmonic valve is likely normal. Tricuspid Valve Normal tricuspid valve structure. There is trace tricuspid valve regurgitation. There is no evidence of pulmonary hypertension. Great Vessels The asc aorta is normal in size. Venous The inferior vena cava is normal in size and collapses greater than 50% with inspiration. Pericardium/Pleural There is no evidence of pericardial effusion. Prior Study Comparison No prior study available for comparison. Recommendations, Care & Conclusions No obvious valvular pathology seen on this study. Measurements 2D Linear Measurements IVSd: 1.10 0.6-0.9/0.6-1.0 cm LVIDd: 3.10 3.9-5.3/4.2-5.9 cm LVIDd Index: 2.00 2.4-3.2/2.2-3.1 cm/m2 LVIDs: 2.10 2.0-3.6 cm LVPWd: 0.90 0.7-1.1 cm LA Diam: 3.20 2.7-3.8/3.0-4.0 cm LAIDs Index: 2.06 1.5-2.3 cm/m2 LV Mass: 106.97 67-162/88-224 g LV Mass Index: 69.02 43-95/49-115 g/m2 LVOT Diam: 1.70 3.0+(-)1.3 cm 2D Systolic Function EF 4C: 67.70 >55% EF 2C: 63.60 >55% EF BiP: 65.90 >55% Mitral Valve MV Pk E: 0.60 MV PK A: 1.02 MV Decel Time: 315.00 E/A: 0.60 E'Lateral: 7.94 E'Medial: 4.46 E/E' Med: 13.40 E/E' Lat: 7.50 PHT: 92.00 MVA PHT: 2.39 Decel Haralson: 1.89 Aortic Valve AoV Pk Ismael: 1.44 AoV Mn Ismael: 1.09 AoV VTI: 0.30 AoV Pk Grad: 8.00 Aov Mn Grad: 5.00 MIGUEL Cont.VTI: 2.14 LVOT LVOT Pk Ismael: 1.34 LVOT Mn Ismael: 0.98 LVOT VTI: 0.28 LVOT Pk Grad: 7.00 LVOT Mn Grad: 4.00 LVOT Diam: 1.70 LVOT Area: 2.27 Diastolic Function MV Pk E: 0.60 MV Pk A: 1.02 E/A: 0.60 E'Medial: 4.46 E/E' Med: 13.40 E' Laterial: 7.94 E/E' Lat: 7.50 Right Ventricle TAPSE (mm): 19.30 TVS' Ismael: 13.80 Tricuspid Valve RA Press: 3.00 Great Vessels Aorta Sinus of Valsalva: 2.80 2.0-3.5 cm Ao Asc: 2.70 2.1-3.4 cm Pulmonary Valve PV Pk Ismael: 0.96 Peak PV Grad: 4.00 Updated in Other Vendor System with Status of Final Chaka Merlos MD electronically signed on 06/08/2023 5:04:48 PM with status of Final
--- NOTE | 2023-06-08 07:17 | PHA.MEDREC ---
Pharmacy Consult ? Medication Reconciliation Pharmacy has completed the medication reconciliation. completed by rn reviewed by pharmacy anastacio
--- NOTE | 2023-06-08 09:35 | MHC.CM.PN ---
CM spoke with Patient. 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 Home self care is the goal and CM has initiated and will follow for dc planning. Patient's PCP is Dr. Durga Altamirano.Patient's Daughter will provide transportation to home.
[2023-06-08] MEDS: Ezetimibe 10 MG TABLET PO (09:52)
[2023-06-08] MEDS: Ferrous Sulfate 324 MG TABLET.DR PO (09:52)
[2023-06-08] MEDS: Atorvastatin Calcium 40 MG TABLET PO (09:53)
[2023-06-08] MEDS: Furosemide 20 MG TABLET PO (09:53)
[2023-06-08] MEDS: Aspirin 81 MG TAB.CHEW PO (09:53)
--- NOTE | 2023-06-08 09:53 | PC.NURSE ---
swallow eval done by speech therapy. pt no longer npo.
[2023-06-08 11:46] LABS: Glucose, Whole Blood 133 mg/dL (60-115)
--- NOTE | 2023-06-08 11:49 | MHC.CM.PN ---
PT is recommending home with services. A referral has been made to [facility] and CM will continue to follow.
--- NOTE | 2023-06-08 12:23 | PM.NEUROCN ---
History of Present Illness Data of Consult Service Date: 06/08/23 Primary Care Provider: Parvez Altamirano MD [facility] Reason for consult: Vertigo This is a 72 year old female with history of lupus, htn, hld, asthma, hypoglycemia, long covid, MVP, and gerd presents to the ED with her daughter, Juliane, for evaluation of lightheaded dizziness that started around 1230 while at [employer]. Describes a lightheadedness that worsens with head movements. States she feels like she is going to fall with head movements and has had difficulty with balance reported by her daughter.? She was told by several people at [facility] that she looked oritz and pallor.? Her right eye would deviate to the right as it does if she is not focusing. She also had a posterior headache which has subsided and palpitations with rapid HR but no chest pain. There is no associated nausea or vomiting.? She denies any blurred vision, room spinning sensation, unilateral weakness or paresthesias, dysphagia, facial droop, or slurred speech.? Denies any history of similar symptoms.? She also tells me that her blood pressures have been elevated with systolic pressure 160-170 is for the last few weeks despite compliance with medications.? She was given both meclizine and lorazepam in the ED without any affect on her dizziness.?She was confused and groggy after the meds. She did have a tick bite recently. This morning she feels much better ad able to walk independently. MRI brain shows no acute findings, but microvacsular white matter changes. Review of Systems Review of Systems: General: No fevers, malaise, unintentional weight loss HEENT: +diplopia. No blurred vision. No sore throat, nasal congestion, rhinorrhea, sinus pain, ear pain Cardiovascular: No chest pain, palpitations, or leg edema Respiratory: No shortness of breath, wheezing, cough GI: No abdominal pain, nausea, vomiting, diarrhea, constipation, melena, hematochezia : No dysuria, hematuria, increased urinary frequency, decreased urinary output MSK: No myalgia, back pain Neuro: No headaches, weakness, paresthesias. +dizziness Skin: No rashes or lesions Yes all other systems are reviewed and are negative PMFSH Past Medical History Medical History Asthma COVID-19 long hauler Fibromyalgia GERD (gastroesophageal reflux disease) Hyperlipidemia Hypertension Hypoglycemia Lupus Mitral valve prolapse Social History Social History Household Members: Spouse Housing: House Do you presently have visiting nurse or other home services: No Alcohol intake: never Patient Tobacco Use Status: Never used Tobacco e-Cigarette/Vaping Use: Never Used Second Hand Smoke Exposure: No Advance Directives Date on File: 06/08/23 service: No Meds Allergies Allergy/AdvReac Type Severity Reaction Status Date / Time acetaminophen [From TYLENOL] Allergy Intermediate ITCHING Verified 06/07/23 21:17 epinephrine [EPINEPHRINE] Allergy Intermediate TACHYCARDIA Verified 06/07/23 21:17 iodine [IODINE] Allergy Intermediate RASH Verified 06/07/23 21:17 Penicillins [PENICILLINS] Allergy Intermediate ITCHING/HIV Verified 06/07/23 21:17 ES Sulfa (Sulfonamide Allergy Intermediate NAUSEA Verified 06/07/23 21:17 Antibiotics) [SULFA (SULFONAMIDE ANTIBIOTICS)] egg [EGG] Allergy Mild SENSITIVITY Verified 06/07/23 21:17 diclofenac [DICLOFENAC] Allergy Unknown HIVES Verified 06/07/23 21:17 levofloxacin [From LEVAQUIN] Allergy Unknown SEVERE Verified 06/07/23 21:17 ITCHING meperidine [Demerol] Allergy Unknown Rash Verified 06/07/23 21:17 penicillin V Allergy Unknown Rash Verified 06/07/23 21:17 procaine [From NOVOCAIN] Allergy Unknown UNKNOWN Verified 06/07/23 21:17 SHELLFISH Allergy Severe ANAPHYLAXIS Uncoded 07/05/20 17:09 eggs Allergy Unknown Rash Uncoded 06/07/23 21:17 Novocain Allergy Unknown Rash Uncoded 06/07/23 21:17 From DEMEROL AdvReac Intermediate HYPOTENSION Uncoded 07/05/20 17:09 Active Medications: Current Medications Albuterol Sulfate (Albuterol Sulfate 90 Mcg 8 Gm Inhaler) 1 puff INHALE Q4H PRN PRN Reason: Shortness Of Breath Aspirin (Aspirin 81 Mg Tab.Chew) 81 mg PO DAILY [facility] Last Admin: 06/08/23 09:53 Dose: 81 mg Atorvastatin Calcium (Atorvastatin Calcium 40 Mg Tablet) 40 mg PO DAILY [facility] Last Admin: 06/08/23 09:53 Dose: 40 mg Docusate Sodium (Docusate Sodium 100 Mg Capsule) 100 mg PO DAILY PRN PRN Reason: Constipation Ezetimibe (Ezetimibe 10 Mg Tablet) 10 mg PO DAILY [facility] Last Admin: 06/08/23 09:52 Dose: 10 mg Enoxaparin Sodium (Enoxaparin Sodium 40 Mg/0.4 Ml Syringe) 40 mg SUBCUT Q24H [facility] Last Admin: 06/07/23 21:42 Dose: 40 mg Ferrous Sulfate (Ferrous Sulfate 324 Mg Tablet.) 324 mg PO MoWeFr@0900 [facility] Last Admin: 06/08/23 09:52 Dose: 324 mg Furosemide (Furosemide 20 Mg Tablet) 20 mg PO DAILY [facility]; Protocol Last Admin: 06/08/23 09:53 Dose: 20 mg Meclizine HCl (Meclizine Hcl 12.5 Mg Tablet) 12.5 mg PO Q8H PRN PRN Reason: dizziness Melatonin (Melatonin 3 Mg Tablet) 6 mg PO BEDTIME [facility] Montelukast Sodium (Montelukast Sodium 10 Mg Tablet) 10 mg PO BEDTIME [facility] Non-Formulary Medication (Mometasone [Asmanex Hfa]) 2 puff INHALE BID [facility] Omeprazole (Omeprazole 20 Mg Capsule.) 20 mg PO BID@0630,1630 [facility] Last Admin: 06/08/23 06:33 Dose: 20 mg Ondansetron HCl (Ondansetron Hcl 4 Mg/2 Ml Vial) 4 mg IVPUSH Q8H PRN PRN Reason: Nausea and Vomiting Pharmacy Consult (Consult Rx Perform Med Rec) 1 each MISCELLANE ONCE PRN PRN Reason: Consult order Sodium Chloride (0.9 % Sodium Chloride Flush 3 Ml Syringe) 3 ml IVFLUSH QSHIFT [facility] Last Admin: 06/08/23 09:35 Dose: Not Given Home Medications Medication Instructions Recorded Confirmed Last Taken Type albuterol sulfate 90 mcg/actuation 1 puff inhalation NEEDED PRN 06/07/23 06/07/23 Unknown History aerosol inhaler Shortness Of Breath aspirin 81 mg capsule 81 mg PO DAILY 06/07/23 06/07/23 Unknown History carisoprodol 350 mg tablet 350 mg PO BID 06/07/23 06/07/23 Unknown History carvedilol 6.25 mg tablet 6.25 mg PO BID 06/07/23 06/07/23 Unknown History ezetimibe 10 mg tablet 10 mg PO DAILY 06/07/23 06/07/23 Unknown History ferrous sulfate 325 mg (65 mg 325 mg PO 3XW 06/07/23 06/07/23 Unknown History iron) tablet (iron) furosemide 20 mg tablet 20 mg PO DAILY 06/07/23 06/07/23 Unknown History inclisiran 284 mg/1.5 mL 284 mg subcut DIRECTED 06/07/23 06/07/23 Unknown History subcutaneous syringe (Leqvio) melatonin 5 mg capsule 5 mg PO DAILY 06/07/23 06/07/23 Unknown History mometasone 200 mcg/actuation HFA 2 puff inhalation BID 06/07/23 06/07/23 Unknown History aerosol inhaler (Asmanex HFA) montelukast 10 mg tablet 10 mg PO DAILY 06/07/23 06/07/23 Unknown History olmesartan 20 mg tablet 20 mg PO DAILY 06/07/23 06/07/23 Unknown History omeprazole 20 mg capsule,delayed 20 mg PO BID 06/07/23 06/07/23 Unknown History release Physical Exam Vital Signs: Vital Signs: Last Vital Signs Temp 97.8 F 06/08/23 12:00 Pulse 72 06/08/23 12:00 Resp 16 06/08/23 12:00 BP 196/92 H 06/08/23 12:00 Pulse Ox 98 06/08/23 12:00 O2 Del Method Room Air 06/08/23 12:00 BMI result Body Mass Index 22.5 Neuro: Other: Normal neuro exam. Results Labs 06/08/23 04:52 06/08/23 04:52 Labs: Short CBC 06/07/23 06/08/23 Range/Units 16:15 04:52 WBC 6.5 5.8 (4.8-10.8) X10*3/uL Hgb 13.1 12.9 (12.0-16.0) g/dl Hct 41.2 40.1 (37.0-47.0) % Plt Count 236 224 (160-400) X10*3/uL BMP 06/07/23 06/08/23 16:15 04:52 Sodium 142 142 Potassium 3.6 3.6 Chloride 108 109 H Carbon Dioxide 25 23 BUN 12 10 Creatinine 0.78 0.69 Calcium 9.5 9.4 Liver Function 06/07/23 Range/Units 16:15 Total Bilirubin 0.2 (0.0-1.0) mg/dL AST 25 (5-31) U/L ALT 20 (0-31) U/L Alkaline Phosphatase 87 (39-117) U/L Albumin 4.1 (3.5-5.0) g/dL Urine 06/07/23 Range/Units 19:20 Urine Color Yellow Urine Appearance Clear Urine pH 7.5 (5.0-9.0) Ur Specific [place] 1.010 (1.005-1.025) Urine Protein Negative (Neg-Trace) mg/dL Urine Glucose (UA) Negative (Negative) mg/dL Assessment and Plan (1) Dizziness: Status: Acute Non vertiginous dizziness that has improved. MRI negative. Recom: check for orthostatic hypotension, CTA of neck and head to r/o vertebrobasilar disease. Plan 72 year old female with history of lupus, htn, hld, asthma, hypoglycemia, long covid, history MVP, and gerd to be admitted for intractable dizziness with concern for posterior CVA. #Intractable dizziness- Concern for Posterior CVA vs medication related -pt denies room spinning but describes unsteady balance and worsening of symptoms like she will fall with head movements. Associated with posterior headache, diplopia, poor coordination with finger to nose on left, +romberg, and gait ataxia -Head CT negative for acute abnormality -MRI ordered -Nursing bedside swallow eval passed -Give asa 325mg now, continue asa 81mg daily -Lipid panel pending. Atorvastatin 40mg daily -Echo -Neuro consult -Meclizine for symptomatic relief -hold soma -monitor on telemetry #HTN -uncontrolled with SBP 190 -Hold antihypertensives at this time in setting possible cva #Mild Persistent asthma -no acute exacerbation -continue Flovent, albuterol p.r.n. #HLD -contineu zetia, hold leqvio -initial atorvastatin # hypoglycemia -etiology unclear -POC glucose #Tick bite- several weeks ago -less likely r/t symptoms -check tick panel DVT prophylaxis-Lovenox Full code Patient requires inpatient stay at least 2 midnights for management of intractable dizziness with concern for posterior CVA based on exam findings warranting further evaluation, close monitoring, an expert consultation Time Spent With Patient Time: Total time managing care of this patient today ____ minutes. Procedures Date of Service Date of Service: 06/08/23
--- NOTE | 2023-06-08 12:36 | MHC.CLN ---
NUTRITION DIET CHANGED FROM DIABETIC, CARDIAC TO CARDIAC. REPORTED TO HUMAN SERVICES CASE MANAGER THAT DOES NOT NEED DM DIET. LABS, MEDS, AND DX REVIEWED.
--- NOTE | 2023-06-08 15:24 | HO.PM.IMPN ---
Subjective Subjective Date of Service: 06/08/23 Interval History: Symptoms essentially resolved. Feels back to baseline Review of Systems Denies chest pain Denies shortness of breath Denies nausea vomiting diarrhea Denies fever chills Physical Exam Vital Signs: Vital Signs: Last Vital Signs Temp 98.0 F 06/08/23 15:20 Pulse 73 06/08/23 15:20 Resp 14 06/08/23 15:20 BP 128/84 06/08/23 15:20 Pulse Ox 95 06/08/23 15:20 O2 Del Method Room Air 06/08/23 15:20 BMI result Body Mass Index 22.5 Const: Other: Awake alert no acute issues Resp: Other: Clear to auscultation bilaterally no rales rhonchi or wheezes Cardio: Other: No S4; positive S1-S2; no S3 murmurs rubs gallops GI: Other: Soft nontender nondistended normoactive bowel sounds Neuro: Other: Cranial nerves 2 through 12 grossly intact as tested. Motor is 5/5 all extremities sensation intact. Gait stable Extrem: Other: No edema bilaterally Objective Data Active Medications Albuterol Sulfate (Albuterol Sulfate 90 Mcg 8 Gm Inhaler) 1 puff INHALE Q4H PRN PRN Reason: Shortness Of Breath Aspirin (Aspirin 81 Mg Tab.Chew) 81 mg PO DAILY [facility] Last Admin: 06/08/23 09:53 Dose: 81 mg Documented By: BRAYDEN Atorvastatin Calcium (Atorvastatin Calcium 40 Mg Tablet) 40 mg PO DAILY [facility] Last Admin: 06/08/23 09:53 Dose: 40 mg Documented By: BRAYDEN Docusate Sodium (Docusate Sodium 100 Mg Capsule) 100 mg PO DAILY PRN PRN Reason: Constipation Ezetimibe (Ezetimibe 10 Mg Tablet) 10 mg PO DAILY [facility] Last Admin: 06/08/23 09:52 Dose: 10 mg Documented By: BRAYDEN Enoxaparin Sodium (Enoxaparin Sodium 40 Mg/0.4 Ml Syringe) 40 mg SUBCUT Q24H [facility] Last Admin: 06/07/23 21:42 Dose: 40 mg Documented By: ALFONSO Ferrous Sulfate (Ferrous Sulfate 324 Mg Tablet.) 324 mg PO MoWeFr@0900 [facility] Last Admin: 06/08/23 09:52 Dose: 324 mg Documented By: BRAYDEN Furosemide (Furosemide 20 Mg Tablet) 20 mg PO DAILY [facility]; Protocol Last Admin: 06/08/23 09:53 Dose: 20 mg Documented By: BRAYDEN Meclizine HCl (Meclizine Hcl 12.5 Mg Tablet) 12.5 mg PO Q8H PRN PRN Reason: dizziness Melatonin (Melatonin 3 Mg Tablet) 6 mg PO BEDTIME [facility] Montelukast Sodium (Montelukast Sodium 10 Mg Tablet) 10 mg PO BEDTIME [facility] Non-Formulary Medication (Mometasone [Asmanex Hfa]) 2 puff INHALE BID [facility] Omeprazole (Omeprazole 20 Mg Capsule.Dr) 20 mg PO BID@0630,1630 [facility] Last Admin: 06/08/23 06:33 Dose: 20 mg Documented By: YOSSI Ondansetron HCl (Ondansetron Hcl 4 Mg/2 Ml Vial) 4 mg IVPUSH Q8H PRN PRN Reason: Nausea and Vomiting Sodium Chloride (0.9 % Sodium Chloride Flush 3 Ml Syringe) 3 ml IVFLUSH QSHIFT [facility] Last Admin: 06/08/23 09:35 Dose: Not Given Documented By: BRAYDEN Non-Admin Reason: Pt in MRI Labs 06/08/23 04:52 06/08/23 04:52 Labs: Laboratory Results - last 24 hr 06/07/23 06/07/23 06/07/23 15:37 16:15 16:15 MCV 85.8 MCH 27.3 MCHC 31.8 RDW 12.8 Plt Count 236 MPV 9.6 Immature Gran % (Auto) 0.3 Neut % (Auto) 68.1 Lymph % (Auto) 21.3 [place] % (Auto) 7.3 Eos % (Auto) 2.5 Baso % (Auto) 0.5 Lymph # (Auto) 1.4 [place] # (Auto) 0.5 Eos # (Auto) 0.2 Baso # (Auto) 0.0 Abs Immat Gran (auto) 0.02 Absolute Neuts (auto) 4.4 Absolute Nucleated RBC 0.000 Nucleated RBC % (auto) 0.0 PT INR APTT Anion Gap 13 Estim Creat Clear Calc 52.3 Estimated GFR > 60 POC Glucose 125 H Random Glucose 130 H Calcium 9.5 Total Bilirubin 0.2 AST 25 ALT 20 Alkaline Phosphatase 87 Total Protein 6.9 Albumin 4.1 Triglycerides 155 Cholesterol 125 LDL Cholesterol, Calc 43 HDL Cholesterol 51 Urine Color Urine Appearance Urine pH Ur Specific [place] Urine Protein Urine Glucose (UA) Urine Ketones Urine Blood Urine Nitrite Ur Leukocyte Esterase Influenza Type A (PCR) Influenza Type B (PCR) RSV RNA Qual (PCR) SARS-CoV-2 RNA (RT-PCR) 06/07/23 06/07/23 06/07/23 16:50 19:20 20:46 MCV MCH MCHC RDW Plt Count MPV Immature Gran % (Auto) Neut % (Auto) Lymph % (Auto) [place] % (Auto) Eos % (Auto) Baso % (Auto) Lymph # (Auto) [place] # (Auto) Eos # (Auto) Baso # (Auto) Abs Immat Gran (auto) Absolute Neuts (auto) Absolute Nucleated RBC Nucleated RBC % (auto) PT 11.2 INR 0.9 APTT 33.2 Anion Gap Estim Creat Clear Calc Estimated GFR POC Glucose Random Glucose Calcium Total Bilirubin AST ALT Alkaline Phosphatase Total Protein Albumin Triglycerides Cholesterol LDL Cholesterol, Calc HDL Cholesterol Urine Color Yellow Urine Appearance Clear Urine pH 7.5 Ur Specific [place] 1.010 Urine Protein Negative Urine Glucose (UA) Negative Urine Ketones Negative Urine Blood Negative Urine Nitrite Negative Ur Leukocyte Esterase Negative Influenza Type A (PCR) NEGATIVE Influenza Type B (PCR) NEGATIVE RSV RNA Qual (PCR) NEGATIVE SARS-CoV-2 RNA (RT-PCR) NEGATIVE 06/08/23 06/08/23 06/08/23 04:52 04:52 11:41 MCV 87.4 MCH 28.1 MCHC 32.2 RDW 13.0 Plt Count 224 MPV 9.8 Immature Gran % (Auto) 0.3 Neut % (Auto) 57.3 Lymph % (Auto) 29.8 [place] % (Auto) 8.1 Eos % (Auto) 4.0 Baso % (Auto) 0.5 Lymph # (Auto) 1.7 [place] # (Auto) 0.5 Eos # (Auto) 0.2 Baso # (Auto) 0.0 Abs Immat Gran (auto) 0.02 Absolute Neuts (auto) 3.3 Absolute Nucleated RBC 0.000 Nucleated RBC % (auto) 0.0 PT INR APTT Anion Gap 14 Estim Creat Clear Calc 59.1 Estimated GFR > 60 POC Glucose 133 H Random Glucose 94 Calcium 9.4 Total Bilirubin AST ALT Alkaline Phosphatase Total Protein Albumin Triglycerides Cholesterol LDL Cholesterol, Calc HDL Cholesterol Urine Color Urine Appearance Urine pH Ur Specific [place] Urine Protein Urine Glucose (UA) Urine Ketones Urine Blood Urine Nitrite Ur Leukocyte Esterase Influenza Type A (PCR) Influenza Type B (PCR) RSV RNA Qual (PCR) SARS-CoV-2 RNA (RT-PCR) Assessment and Plan (1) Dizziness: Status: Acute (2) Hypertension: Status: Acute (3) Asthma: Status: Acute Plan 72 year old female with history of lupus, htn, hld, asthma, hypoglycemia, long covid, history MVP, and gerd to be admitted for intractable dizziness with concern for posterior CVA. 1.Intractable dizziness.. Symptoms resolved -CT/MRI negative for acute finding -asa 81mg daily -monitored normal sinus rhythm without pathological rhythms -CTA head neck as per Neurology 2.HTN -resume outpatient therapies -adjust as indicated 3.Mild Persistent asthma -no acute exacerbation -continue Flovent, albuterol p.r.n. Lovenox Full code Patient requires ongoing hospitalization to complete workup for intractable dizziness Time Spent With Patient Time: Total time managing care of this patient today ____ minutes. Quality Stroke Does the patient have a stroke diagnosis?: Yes Reason for No Anti-thrombotic by Day Two: Drug treatment not indicated VTE Prior VTE?: No VTE Risk Level:: Medical - moderate - high VTE Device Contraindication: Treatment Not Indicated VTE Drug Contraindication: N/A - Med Ordered
[2023-06-08 15:37] LABS: Glucose, Whole Blood 102 mg/dL (60-115)
[2023-06-08] MEDS: Aspirin Enteric Coated 81 MG TABLET.DR PO (16:52)
[2023-06-08] MEDS: Famotidine 20 MG TABLET 40 MG PO (20:18)
[2023-06-08] MEDS: Loratadine 10 MG TABLET PO (20:18)
[2023-06-08 21:01] LABS: Glucose, Whole Blood 105 mg/dL (60-115)
[2023-06-08] MEDS: Montelukast Sodium 10 MG TABLET PO (22:31)
[2023-06-08] MEDS: carvediloL 6.25 MG TABLET PO (22:32)
[2023-06-08] MEDS: Enoxaparin Sodium 40 MG/0.4 ML SYRINGE SUBCUT (22:33)
[2023-06-09] MEDS: carisoprodoL 350 MG TABLET PO (01:24)
[2023-06-09] MEDS: Melatonin 3 MG TABLET 6 MG PO (01:24)
[2023-06-09] MEDS: 0.9 % Sodium Chloride Flush 3 ML SYRINGE IVFLUSH ×3 (01:28→16:16)
[2023-06-09 03:17] VITALS: BP 136/64; PULSE 69; RESP 18; TEMP 36.2; O2SAT 98
[2023-06-09] MEDS: Omeprazole 20 MG CAPSULE.DR PO ×2 (05:49→16:15)
[2023-06-09 07:34] LABS: Glucose, Whole Blood 106 mg/dL (60-115)
[2023-06-09 07:51] VITALS: BP 153/79; PULSE 75; RESP 20; TEMP 36.4; O2SAT 96
[2023-06-09] MEDS: Ezetimibe 10 MG TABLET PO (08:57)
[2023-06-09] MEDS: Atorvastatin Calcium 40 MG TABLET PO (08:57)
[2023-06-09] MEDS: Aspirin 81 MG TAB.CHEW PO (08:57)
[2023-06-09] MEDS: carvediloL 6.25 MG TABLET PO (08:57)
[2023-06-09] MEDS: Furosemide 20 MG TABLET PO (08:57)
[2023-06-09] MEDS: Valsartan 80 MG TABLET PO (08:57)
[2023-06-09] MEDS: Aspirin Enteric Coated 81 MG TABLET.DR PO (08:57)
[2023-06-09 11:30] LABS: Glucose, Whole Blood 108 mg/dL (60-115)
[2023-06-09 11:52] VITALS: BP 146/77; PULSE 74; RESP 20; TEMP 36.3; O2SAT 99
[2023-06-09] MEDS: gadobutroL 10 ML VIAL IVPUSH (15:26)
[2023-06-09 16:00] VITALS: BP 149/74; PULSE 77; RESP 18; TEMP 36.1; O2SAT 97
[2023-06-09] MEDS: Ibuprofen 600 MG TABLET PO (16:15)
[2023-06-09 16:44] LABS: Glucose, Whole Blood 98 mg/dL (60-115)
--- NOTE | 2023-06-09 17:58 | P.DS_ITS ---
DS: Providers Provider Date of Service: 06/09/23 Date of admission: 06/07/23 21:00 Date of discharge: 06/09/23 Primary care physician: Parvez Altamirano MD Consults: 06/07/23 21:03 Consult to Neurology Routine Consulting Provider: Binta Sands Reason for consultation: intractable vertigo, ?posterior stroke DS: Diagnosis Discharge Diagnosis (1) Dizziness: Status: Acute (2) Hypertension: Status: Acute (3) Asthma: Status: Acute DS: Summary Hospital Course Hospital Course: 72 year old female with history of lupus, htn, hld, asthma, hypoglycemia, long covid, history MVP, and gerd presents to the ED with her daughter, Juliane, for evaluation of intractable dizziness that started around 1230 today while at [employer]. Describes a lightheadedness that worsens with head movements. States she feels like she is going to fall with head movements and has had difficulty with balance reported by her daughter.? She was told by several people at [facility] that she did not look well with pallor.? She tells me she also has been experiencing diplopia particularly with right-sided gaze.? She also has a posterior headache.? There is no associated nausea or vomiting.? She denies any blurred vision, room spinning sensation, unilateral weakness or paresthesias, dysphagia, facial droop, or slurred speech.? Denies any history of similar symptoms.? She also tells me that her blood pressures have been elevated with systolic pressure 160-170 is for the last few weeks despite compliance with medications.? She was given both meclizine and lorazepam in the ED without any affect on her dizziness.? Of note, she did have a tick bite recently. On arrival, vital within normal limits except hypertensive to 194/91.? Orthostatic vital signs were performed twice and were negative.? Hematology studies unremarkable.? Coagulation studies normal.? Renal function normal, electrolytes levels normal.? Urinalysis unremarkable.? COVID-19, influenza, RSV pending.? Head CT negative for any acute intracranial abnormality. No smoking history, illicit drug, or alcohol use. Hospital Course Admitted to telemetry where monitor failed to demonstrate dysrhythmia that could be attributed to symptoms. Within 24 hours, symptoms totally resolved. Seen by Neurology who recommended CTA of head and neck however patient has allergy to iodine precluded this. MRA of head neck was ordered and failed to demonstrate any pathology (including posterior circulation) to explain symptoms. Neurology recommended aspirin daily and follow up as an outpatient. At this point time patient is medically acceptable for discharge Time Spent with Patient Time attestation: Total time managing care of this patient today ____ minutes. Discharge coordination time: Greater than 30 minutes Quality: Safe Use of Opioids Does Pt have an Active Cancer Diagnosis on the Problem List?: No Quality: Stroke Does the patient have a stroke diagnosis?: No Physical Exam Vital Signs: Vital Signs: Last Vital Signs Temp 97 F 06/09/23 16:00 Pulse 77 06/09/23 16:00 Resp 18 06/09/23 16:00 BP 149/74 H 06/09/23 16:00 Pulse Ox 97 06/09/23 16:00 O2 Del Method Room Air 06/09/23 16:00 BMI result Body Mass Index 22.5 Const: Other: Awake alert no acute issues Resp: Other: Clear to auscultation bilaterally no rales rhonchi or wheezes Cardio: Other: No S4; positive S1-S2; no S3 murmurs rubs gallops GI: Other: Soft nontender nondistended normoactive bowel sounds Neuro: Other: Cranial nerves 2 through 12 grossly intact as tested. Motor is 5/5 all extremities sensation intact. Gait stable Extrem: Other: No edema bilaterally DS: Data Data Completed and Pending Labs on day of discharge: Laboratory Results - last 24 hr 06/08/23 06/09/23 06/09/23 20:33 07:26 11:23 POC Glucose 105 106 108 06/09/23 16:39 POC Glucose 98 Discharge Plan Discharge Anticipated Discharge Date/Time: 06/09/23 17:53 Patient Disposition: Home, Self-Care Discharge Diagnosis: Non vertiginous dizziness Referrals: Parvez Benedict MD [Primary Care Provider] - 1 Week Discharge Medications: New atorvastatin 40 mg Tablet 40 mg PO DAILY Qty: 30 0RF Continued carisoprodol 350 mg tablet 350 mg PO BID carvedilol 6.25 mg tablet 6.25 mg PO BID ferrous sulfate [iron] 325 mg (65 mg iron) Tablet 325 mg PO 3XW omeprazole 20 mg capsule,delayed release(DR/EC) 20 mg PO BID montelukast 10 mg tablet 10 mg PO DAILY furosemide 20 mg tablet 20 mg PO DAILY albuterol sulfate 90 mcg/actuation Hfa Aerosol Inhaler 1 puff INHALATION NEEDED PRN (Reason: Shortness Of Breath) olmesartan 20 mg tablet 20 mg PO DAILY ezetimibe 10 mg tablet 10 mg PO DAILY melatonin 5 mg Capsule 5 mg PO DAILY Asmanex HFA 200 mcg/actuation HFA aerosol inhaler 2 puff INHALATION BID aspirin 81 mg Capsule 81 mg PO DAILY Leqvio 284 mg/1.5 mL syringe 284 mg subcut DIRECTED Discharge Orders: Discharge Order (Routine); Ordered 06/09/23 Ordered By: Hank Stewart Diet: Advance to usual diet Activity on Discharge: As tolerated Stand Alone Forms: Patient Portal Discharge page Care Plan Goals: Continue all medicines as taken prior to hospital Health Concerns: Lipitor 40 mg daily until seen by PCP Plan of Treatment: Follow-up with PCP next available Assessment: See discharge summary Patient Instructions: Atorvastatin (By mouth)
[2023-06-11 00:18] LABS: A. Phagocytphilium DNA,RT-PCR NOT DETECTED (NOT DETECTED); Babesia Microti DNA, RT-PCR NOT DETECTED (NOT DETECTED); Borrelia Miyamotoi,DNA RT-PCR NOT DETECTED (NOT DETECTED); E.Chaffeensis DNA RT-PCR NOT DETECTED (NOT DETECTED); Lyme(Borrelia ssp)DNA RT-PCR NOT DETECTED (NOT DETECTED)
== END 2023-06-09 18:49 | disposition home or self-care (01) | DRG 149 ==
LOC: HO.ED 17:34 → HO.EDOVER 21:33 → HO.IMC 06-08 07:45
PROVIDERS: Nurse Practitioner Family; Physician Assistant; Admitting Provider Physician Assistant; Emergency Provider Internal Medicine; PCP Family Medicine; Visit Provider Hospitalist
DX: R42 Dizziness and giddiness (principal); M32.9 Systemic lupus erythematosus, unspecified; J45.30 Mild persistent asthma, uncomplicated; E78.5 Hyperlipidemia, unspecified; E16.2 Hypoglycemia, unspecified; I10 Essential (primary) hypertension; Z20.822 Contact with and (suspected) exposure to COVID-19; Z79.82 Long term (current) use of aspirin; Z79.899 Other long term (current) drug therapy
CPT/HCPCS: 0241U; 36415; 70450; 70546; 70549; 70551; 80048; 80053; 80061; 81003; 82947; 85025; 85610; 85730; 87798; 87801; 92610; 93005; 93306; 93356; 97116; 97162; 97165; 97530; 99285; A9585; J1650; Q9957

== ENCOUNTER 2023-06-07 21:00 | Outpatient (BNV) | payer OTHER, SELFPAY | END 2023-06-08 07:00 | PROVIDERS: Admitting Provider Physician Assistant; Emergency Provider Internal Medicine; PCP Family Medicine; Visit Provider Internal Medicine | DX: I51.9 Heart disease, unspecified (principal) | CPT/HCPCS: 93306 ==

== ENCOUNTER → 2023-06-07 21:00 | Outpatient (BNV) | payer OTHER, SELFPAY | PROVIDERS: Admitting Provider Physician Assistant; Emergency Provider Internal Medicine; PCP Family Medicine; Visit Provider Physician Assistant | DX: R42 Dizziness and giddiness (principal); I10 Essential (primary) hypertension; J45.909 Unspecified asthma, uncomplicated | CPT/HCPCS: 99223; 99233; 99239 ==

== ENCOUNTER → 2023-07-06 15:45 | Outpatient (BNV) | payer OTHER, SELFPAY | PROVIDERS: PCP Family Medicine; Visit Provider Radiology Diagnostic Radiology | DX: Z12.31 Encounter for screening mammogram for malignant neoplasm of breast (principal) | CPT/HCPCS: 77063; 77067 ==

== ENCOUNTER 2023-07-06 16:23 | Outpatient (REF) | payer OTHER, SELFPAY ==
--- NOTE | ~2023-07-06 | MM_ITS ---
EXAMINATION: MM SCREENING DIGITAL BREAST TOMOSYNTHESIS, BILATERAL CLINICAL INFORMATION: Screening. Asymptomatic. COMPARISON: Mammography: This study is compared with prior exams dating back to 2018. TECHNIQUE: Digital breast tomosynthesis is performed in both the craniocaudal and mediolateral oblique views along with computer-aided detection (CAD). Synthesized 2D images are generated from the tomosynthesis. FINDINGS: The breasts are heterogeneously dense, which may obscure small masses (ACR BI-RADS breast composition Category c). In the upper outer quadrant of the left breast, there are grouped calcifications which warrant additional mammographic imaging magnification. In the right breast, there are no significant masses, abnormal calcifications, or other abnormalities. There are bilateral benign calcifications in each breast. There are coarse. MM/MM tomosynthesis screening BI IMPRESSION: Grouped calcifications in the left breast warrants additional imaging with magnification mammography. No mammographic signs of malignancy right breast. ASSESSMENT: BI-RADS BI-RADS 0 - Incomplete: Needs additional Imaging. RECOMMENDATION: Additional views of the left breast Radiology department staff will contact the patient for additional imaging. Additional Imaging required This examination should not preclude the clinical evaluation of a suspicious palpable abnormality. This patient's information was entered into a reminder system with a target due date for their next mammogram.
== END 2023-07-06 16:24 | disposition home or self-care (01) ==
LOC: HO.MAMMO 16:23
PROVIDERS: PCP Family Medicine; Visit Provider Family Medicine
DX: Z12.31 Encounter for screening mammogram for malignant neoplasm of breast (principal)
CPT/HCPCS: 77063; 77067

== ENCOUNTER → 2023-08-10 14:00 | Outpatient (BNV) | payer OTHER, SELFPAY | PROVIDERS: PCP Family Medicine; Visit Provider Radiology Diagnostic Radiology | DX: R92.1 Mammographic calcification found on diagnostic imaging of breast (principal) | CPT/HCPCS: 77061; 77065 ==

== ENCOUNTER 2023-08-10 14:05 | Outpatient (REF) | payer OTHER, SELFPAY ==
--- NOTE | ~2023-08-10 | MM_ITS ---
EXAMINATION: MM DIAGNOSTIC DIGITAL BREAST TOMOSYNTHESIS, LEFT CLINICAL INFORMATION: The patient is seen for further evaluation of grouped calcifications in the upper outer quadrant of the left breast as noted on recent screening mammogram from 07/06/2023. COMPARISON: Mammography: This study is compared with prior mammograms dating back to 2011. TECHNIQUE: Digital breast tomosynthesis is performed. 2D images are generated from the tomosynthesis. The following views are obtained: CC and lateral magnification imaging of the left breast and a full lateral view of the left breast. FINDINGS: There are scattered areas of fibroglandular density (ACR BI-RADS breast composition Category b). Additional mammographic imaging shows indeterminate grouped calcifications in the upper outer quadrant of the left breast. Stereotactic biopsy is advised. MM/MM tomosynthesis added views L IMPRESSION: Indeterminate left breast calcifications warrant stereotactic biopsy. ASSESSMENT: BI-RADS BI-RADS 4 - Suspicious finding RECOMMENDATION: Biopsy recommended Results were provided to the patient at time of visit by the technologist. This patient's information was entered into a reminder system with a target due date for their next mammogram.
== END 2023-08-10 14:06 | disposition home or self-care (01) ==
LOC: HO.MAMMO 14:05
PROVIDERS: PCP Family Medicine; Visit Provider Nurse Practitioner Family
DX: R92.8 Other abnormal and inconclusive findings on diagnostic imaging of breast (principal)
CPT/HCPCS: 77061; 77065

== ENCOUNTER 2023-08-21 09:57 | Outpatient (REF) | payer OTHER, SELFPAY ==
--- NOTE | ~2023-08-21 | MM_ITS ---
EXAMINATION: STEREOTACTIC TOMOSYNTHESIS-GUIDED VACUUM-ASSISTED BREAST BIOPSY, LEFT SPECIMEN RADIOGRAPH, LEFT POST PROCEDURE DIGITAL MAMMOGRAM, LEFT CLINICAL INFORMATION: Suspicious calcifications seen left breast upper outer quadrant, posterior one third, seen on screening and diagnostic mammogram . COMPARISON: None available. TECHNIQUE/PROCEDURE: Informed consent was obtained from the patient after discussion of the benefits, risks, and alternatives to biopsy today. Of note, the patient requested we use no epinephrine, and continued taking an 81 mg baby aspirin throughout the last 5 days. Patient was counseled on significant increase in risk of bleeding and hematoma development. Patient appeared to understand, and gave consent regardless. Gave opportunity for questions. Patient signed consent form. BIOPSY TABLE: [employer] Affirm Prone Biopsy System. LESION: Calcifications. LOCAL ANESTHESIA: 5 mL 1% buffered lidocaine; 10 mL 1% lidocaine with bicarbonate. DERMATOTOMY: Single skin shameka dermatotomy performed. NEEDLE: Yieldr Eviva 9-gauge vacuum assisted core biopsy device. APPROACH: craniocaudal. TARGETING: Combination of digital breast tomosynthesis and stereotactic digital mammography used for targeting. CORES: 5. CLIP: Yieldr SecurMark Cylinder-shaped marker. SPECIMEN RADIOGRAPH: Specimen radiograph is taken in separate room using digital mammography. The index calcifications are in the excised cores. POST PROCEDURE UNILATERAL DIGITAL MAMMOGRAM: The post biopsy mammogram is performed in separate room using separate digital mammography equipment from the biopsy procedure. CC and 90 degree ML views are obtained. The breasts are heterogeneously dense, which may obscure small masses (breast composition category: c). The clip marker is in accurate position. No significant hematoma. The calcifications are markedly decreased at the biopsy site. The patient tolerated the procedure well. No immediate complications. Home instructions reviewed with the patient. Final pathology results are pending. MM/MM stereotactic biopsy LT IMPRESSION: 1. Digital tomosynthesis-guided core biopsy left breast calcifications with clip placement. 2. Specimen radiograph taken and post procedure mammogram. There is satisfactory and accurate positioning of the biopsy clip. No significant hematoma. 3. Final pathology results pending. An addendum report will be issued.
[2023-08-21] MEDS: Lidocaine HCl 1 % 20 ML VIAL 21 ML SUBCUT (11:20)
[2023-08-21] MEDS: Sodium Bicarbonate 8.4% 50 MEQ/50 ML VIAL SUBCUT (11:21)
== END 2023-08-21 09:58 | disposition home or self-care (01) ==
LOC: HO.MAMMO 09:57
PROVIDERS: PCP Family Medicine; Visit Provider Nurse Practitioner Family
DX: R92.1 Mammographic calcification found on diagnostic imaging of breast (principal)
CPT/HCPCS: 19081; 88305

== ENCOUNTER → 2023-08-21 10:00 | Outpatient (BNV) | payer OTHER, SELFPAY | PROVIDERS: PCP Family Medicine; Visit Provider Radiology Diagnostic Radiology | DX: R92.1 Mammographic calcification found on diagnostic imaging of breast (principal) | CPT/HCPCS: 19081 ==

== ENCOUNTER 2024-05-13 10:42 | Observation (INO) | payer OTHER, SELFPAY ==
[2024-05-13] VITALS (7 sets, daily range): BP systolic 115–164; BP diastolic 55–87; PULSE 79–87; RESP 16–20; TEMP 36–36.9; O2SAT 97–99; BMI 21.8
--- NOTE | ~2024-05-13 | US_ITS ---
EXAMINATION: US ABDOMEN LIMITED CLINICAL INFORMATION: Nausea and vomiting. Upper abdominal pain. COMPARISON: Abdominal ultrasound 12/28/2018 TECHNIQUE: Real-time imaging of the right upper quadrant abdominal viscera. FINDINGS: PANCREAS: Limited visualization LIVER: The liver is normal in size. The liver contour is normal. Parenchymal echogenicity is normal. No focal hepatic lesion. There is no intrahepatic biliary duct dilatation seen. GALLBLADDER: Surgically absent. COMMON BILE DUCT: Dilated in caliber measuring 1.3 cm in diameter. RIGHT KIDNEY: No hydronephrosis. No renal calculi or focal parenchymal lesions. The kidney measures 9.3 cm in maximum dimension. FREE FLUID: None. US/US abdomen limited IMPRESSION: Dilated common duct measuring up to 1.3 cm. This is unchanged compared with abdominal ultrasound 12/28/2018.
--- NOTE | 2024-05-13 10:57 | ECG_ITS ---
Test Reason : abdominal pain Blood Pressure : / mmHG Vent. Rate : 078 BPM Atrial Rate : 078 BPM P-R Int : 144 ms QRS Dur : 074 ms QT Int : 402 ms P-R-T Axes : 060 005 016 degrees QTc Int : 458 ms Artifact in tracing Normal sinus rhythm Left ventricular hypertrophy with repolarization abnormality ( R in aVL ) Abnormal ECG When compared with ECG of 07-JUN-2023 14:54, Nonspecific T wave abnormality now evident in Anterior leads Referred By: Katina Landin Electronically Signed By:BRITTNY DOBBINS
--- NOTE | 2024-05-13 10:59 | ED.NAVMDI ---
HPI - Nausea/Vomiting/Diarrhea General Chief complaint: Abdominal Pain Stated complaint: dehydrated, blood in stool Time Seen by Provider: 05/13/24 10:48 Source: patient and old records reviewed Mode of arrival: ambulatory Limitations: no limitations History of Present Illness ED Provider: NAOMIE COLLAZO Narrative: 73 yo female with PMH of lupus, HTN, HLD, migraines, fibromyalgia here with c/o being started on doxy last week for concern for L upper tooth dental implant infection. She could not tolerate it. She developed upper abdominal pain, nausea, vomiting, diarrhea. She cannot eat or drink anything she just vomits after. Her diarrhea still is happening today. She denies bloody stools or black stools but notes her PCP tested it and they found blood in it. She took her last dose of doxy on Thursday. She takes omeprazole 20mg BID, saw Dr. Rivero several years ago in the past. Takes ibuprofen BID for pains. She came in as she feels weak, dizzy with standing, unable to eat or drink. MD elicited complaint: nausea, vomiting, diarrhea and abdominal pain Pertinent past history: other (gastritis) Onset (ago): day(s) (several ) Description of vomiting: watery Associated nausea: Yes Associated abdominal pain: Yes Location of pain: epigastric Pain consistency: intermittent Severity: mild Quality: aching Exacerbating factors: eating Relieving factors: none Context: recent antibiotic use (started after taking doxycycline) Associated symptoms: loss of appetite, malaise, nausea/vomiting and weakness Related Data Home Medications ?Medication ?Instructions ?Recorded ?Confirmed albuterol sulfate 90 mcg/actuation 1 puff inhalation NEEDED PRN 06/07/23 06/07/23 aerosol inhaler Shortness Of Breath aspirin 81 mg capsule 81 mg PO DAILY 06/07/23 06/07/23 carisoprodol 350 mg tablet 350 mg PO BID 06/07/23 06/07/23 carvedilol 6.25 mg tablet 6.25 mg PO BID 06/07/23 06/07/23 ezetimibe 10 mg tablet 10 mg PO DAILY 06/07/23 06/07/23 ferrous sulfate 325 mg (65 mg 325 mg PO 3XW 06/07/23 06/07/23 iron) tablet (iron) furosemide 20 mg tablet 20 mg PO DAILY 06/07/23 06/07/23 inclisiran 284 mg/1.5 mL 284 mg subcut DIRECTED 06/07/23 06/07/23 subcutaneous syringe (Leqvio) melatonin 5 mg capsule 5 mg PO DAILY 06/07/23 06/07/23 mometasone 200 mcg/actuation HFA 2 puff inhalation BID 06/07/23 06/07/23 aerosol inhaler (Asmanex HFA) montelukast 10 mg tablet 10 mg PO DAILY 06/07/23 06/07/23 olmesartan 20 mg tablet 20 mg PO DAILY 06/07/23 06/07/23 omeprazole 20 mg capsule,delayed 20 mg PO BID 06/07/23 06/07/23 release Previous Rx's ?Medication ?Instructions ?Recorded atorvastatin 40 mg tablet 40 mg PO DAILY #30 tabs 06/09/23 Allergies Allergy/AdvReac Type Severity Reaction Status Date / Time acetaminophen [From TYLENOL] Allergy Intermediate ITCHING Verified 05/13/24 10:48 epinephrine [EPINEPHRINE] Allergy Intermediate TACHYCARDIA Verified 05/13/24 10:48 iodine [IODINE] Allergy Intermediate RASH Verified 05/13/24 10:48 Penicillins [PENICILLINS] Allergy Intermediate ITCHING/HIV Verified 05/13/24 10:48 ES Sulfa (Sulfonamide Allergy Intermediate NAUSEA Verified 05/13/24 10:48 Antibiotics) [SULFA (SULFONAMIDE ANTIBIOTICS)] egg [EGG] Allergy Mild SENSITIVITY Verified 05/13/24 10:48 diclofenac [DICLOFENAC] Allergy Unknown HIVES Verified 05/13/24 10:48 levofloxacin [From LEVAQUIN] Allergy Unknown SEVERE Verified 05/13/24 10:48 ITCHING meperidine [Demerol] Allergy Unknown Rash Verified 05/13/24 10:48 penicillin V Allergy Unknown Rash Verified 05/13/24 10:48 procaine [From NOVOCAIN] Allergy Unknown UNKNOWN Verified 05/13/24 10:48 doxycycline AdvReac Stomach Verified 05/13/24 10:48 Upset SHELLFISH Allergy Severe ANAPHYLAXIS Uncoded 05/13/24 10:48 eggs Allergy Unknown Rash Uncoded 05/13/24 10:48 Novocain Allergy Unknown Rash Uncoded 05/13/24 10:48 From DEMEROL AdvReac Intermediate HYPOTENSION Uncoded 05/13/24 10:48 Review of Systems Review of Systems: Constitutional : No Weight loss, No Fever, No Chills, pos fatigue ENT/Mouth : No sore throat, No Rhinorrhea Eyes: No Swelling, No Redness Cardiovascular : No Chest Pain, No SOB, NoEdema Respiratory : No Cough, No Sputum, No Wheezing Gastrointestinal : Positive Nausea, Positive Vomiting, positive Diarrhea, positive abdominal Pain, No Hematochezia, No Melena Genitourinary : No Dysuria, No Urinary Frequency, No Hematuria, No Urgency Musculoskeletal : No joint pain, No Myalgias, No Joint Swelling Skin : No Skin Lesions, No rash Neuro : pos Weakness, No Numbness, No Dizziness, No Headache Psych : No Anxiety/Panic, No Depression All other systems reviewed and are negative. Gastrointestinal: Gastrointestinal: Reports nausea PMFSH Past Medical History Attestation statement: The following information was validated with the patient. Source: old records reviewed Medical History Mitral valve prolapse Lupus GERD (gastroesophageal reflux disease) COVID-19 long hauler Hypoglycemia Asthma Hypertension Hyperlipidemia Fibromyalgia Social History Social History Household Members: Spouse Housing: House Do you presently have visiting nurse or other home services: No Alcohol intake: never Comment: pt. refusing bed alarm . Patient Tobacco Use Status: Never used Tobacco e-Cigarette/Vaping Use: Never Used Second Hand Smoke Exposure: No Advance Directives: Yes Advance Directives on File: Yes Advance Directives Date on File: 06/08/23 service: No Physical Exam Vital Signs: Vital Signs: Last Vital Signs Temp 97.6 F 05/13/24 11:45 Pulse 85 05/13/24 12:36 Resp 16 05/13/24 12:36 BP 122/62 05/13/24 12:36 Pulse Ox 98 05/13/24 12:36 O2 Del Method Room Air 05/13/24 12:36 BMI result Body Mass Index 21.8 Appearance: Alert. Oriented X3. No acute distress. Eyes: Pupils equal, round and reactive to light. ENT: Pharynx dry MM Neck: Normal inspection. Neck supple. CVS: Normal heart rate and rhythm. Pulses normal. Respiratory: No respiratory distress. Breath sounds normal. Abdomen: Soft and non-tender. no rebound or guarding Skin: Skin warm and dry. Normal skin color. Normal skin turgor. Extremities: No lower extremity edema. No calf ttp Neuro: Oriented X 3. No motor deficit. No sensory deficit. Course Course Course Narrative: calculated osm gap is 6 so normal Medications Administered Generic Name Dose Route Start Last Admin Trade Name Michelle PRN Reason Stop Dose Admin Dextrose/Sodium Chloride 1,000 mls @ 50 mls/hr 05/13/24 12:00 05/13/24 12:35 D51/2ns IVCONT 50 mls/hr .Q20H KARSTEN Administration Discontinued Medications Generic Name Dose Route Start Last Admin Trade Name Fredarell PRN Reason Stop Dose Admin Lactated Ringer's 1,000 mls @ 999 mls/hr 05/13/24 10:57 05/13/24 12:37 Lr IV 05/13/24 11:57 Infused .Q1H1M ONE Infusion Lactated Ringer's 1,000 mls @ 999 mls/hr 05/13/24 12:50 05/13/24 13:44 Lr IV 05/13/24 13:50 999 mls/hr .Q1H1M ONE Administration Ondansetron HCl 4 mg 05/13/24 10:57 05/13/24 11:23 Ondansetron Hcl 4 Mg/2 Ml Vial IVPUSH 05/13/24 10:58 4 mg ONCE ONE Administration Pantoprazole Sodium 40 mg 05/13/24 11:44 05/13/24 12:35 Pantoprazole Sodium 40 Mg/10 Ml Vial IVPUSH 05/13/24 11:45 40 mg ONCE ONE Administration Medical Decision Making Medical Decision Making MDM Narrative: 73 yo female with PMH of lupus, HTN, HLD, migraines, fibromyalgia here with c/o n/v/d weakness after starting doxy at this time abdomen is benign but she is acidotic could be due to losses but there is a gap will obtain VBG, start on IVF, has lower bs start on dextrose 1/2NS for hypoglycemia, osm/lactic acid/ETOH for gap - could be due to losses. IVF and IV protonix, hydration. Discuss with GI given the vomiting and acidosis concern for possible ulcer, US of liver/GB given LFTs. Differential Diagnosis Differential Diagnoses: The differential diagnosis associated with the presentation includes dehydraiton, weakness, FTT, PUD Admission/Observation Consideration of admission/observation: Escalation of care including admission/observation considered will admit for further workup and management given acidosis gap dehydrated neg lactic acid no ETOH dehdyration likely stable H/H no signs of bleeding blood sugar still low 60s Consult Healthcare Provider Management of the patient was discussed with: Hospitalist (will admit) Lab Data MDM Lab Attestation statement: I reviewed the patient's lab results. 05/13/24 11:16 05/13/24 11:16 Labs: Lab Results 05/13/24 05/13/24 05/13/24 Range/Units 11:06 11:16 12:33 WBC 7.6 (4.8-10.8) X10*3/uL RBC 4.74 (4.20-5.50) X10*6/uL Hgb 13.3 (12.0-16.0) g/dl Hct 41.2 (37.0-47.0) % MCV 86.9 (80.0-98.0) fL MCH 28.1 (27.0-33.0) pg MCHC 32.3 (31.0-35.0) g/dl RDW 13.2 (11.0-16.0) % Plt Count 259 (160-400) X10*3/uL MPV 9.9 (9.4-12.3) fL Immature Gran % (Auto) 0.4 (0.0-0.4) % Neut % (Auto) 70.3 (45-73) % Lymph % (Auto) 20.3 (20-40) % [place] % (Auto) 7.3 (2-11) % Eos % (Auto) 1.2 (0-4) % Baso % (Auto) 0.5 (0-2) % Lymph # (Auto) 1.6 (1.2-4.9) X10*3/uL [place] # (Auto) 0.6 (0.1-1.2) X10*3/uL Eos # (Auto) 0.1 (0.0-0.4) X10*3/uL Baso # (Auto) 0.0 (0.0-0.2) X10*3/uL Abs Immat Gran (auto) 0.03 (0.00-0.03) X10*3/uL Absolute Neuts (auto) 5.4 (2.0-8.3) x10*3/uL Absolute Nucleated RBC 0.000 (0.0-0.012) X10*3/uL Nucleated RBC % (auto) 0.0 (0.0-0.2) /100WBC VBG pH (7.32-7.43) VBG pCO2 mmHg VBG pO2 mmHg VBG HCO3 (22-26) mmol/L VBG O2 Saturation % VBG Base Excess mmol/L Sodium 137 (135-145) mmol/L Potassium 4.6 (3.3-5.1) mmol/L Chloride 106 (96-108) mmol/L Carbon Dioxide 12 L (22-29) mmol/L Anion Gap 24 H (12-20) BUN 20 H (9-16) mg/dL Creatinine 0.82 (0.5-1.4) mg/dL Estim Creat Clear Calc 49.0 Estimated GFR > 60 POC Glucose (60-115) mg/dL Random Glucose 56 L* (60-115) mg/dL Osmolality 290 (281-305) mosm/kg Lactic Acid 1.1 (0.5-2.0) mmol/L Calcium 9.3 (8.4-10.2) mg/dL Magnesium 2.0 (1.6-2.6) mg/dL Total Bilirubin 0.5 (0.0-1.0) mg/dL Direct Bilirubin 0.2 (0.0-0.5) mg/dL AST 48 H (5-31) U/L ALT 39 H (0-31) U/L Alkaline Phosphatase 86 (39-117) U/L Troponin I High Sens < 2.7 (<3.5-17.0) ng/L Total Protein 6.7 (6.5-8.0) g/dL Albumin 4.0 (3.5-5.0) g/dL Lipase 11 (8-78) U/L Ethyl Alcohol < 10 mg/dL Influenza Type A (PCR) NEGATIVE (Negative) Influenza Type B (PCR) NEGATIVE (Negative) RSV RNA Qual (PCR) NEGATIVE (Negative) SARS-CoV-2 RNA (RT-PCR) NEGATIVE (Negative) 05/13/24 05/13/24 05/13/24 Range/Units 12:34 13:47 13:50 WBC (4.8-10.8) X10*3/uL RBC (4.20-5.50) X10*6/uL Hgb (12.0-16.0) g/dl Hct (37.0-47.0) % MCV (80.0-98.0) fL MCH (27.0-33.0) pg MCHC (31.0-35.0) g/dl RDW (11.0-16.0) % Plt Count (160-400) X10*3/uL MPV (9.4-12.3) fL Immature Gran % (Auto) (0.0-0.4) % Neut % (Auto) (45-73) % Lymph % (Auto) (20-40) % [place] % (Auto) (2-11) % Eos % (Auto) (0-4) % Baso % (Auto) (0-2) % Lymph # (Auto) (1.2-4.9) X10*3/uL [place] # (Auto) (0.1-1.2) X10*3/uL Eos # (Auto) (0.0-0.4) X10*3/uL Baso # (Auto) (0.0-0.2) X10*3/uL Abs Immat Gran (auto) (0.00-0.03) X10*3/uL Absolute Neuts (auto) (2.0-8.3) x10*3/uL Absolute Nucleated RBC (0.0-0.012) X10*3/uL Nucleated RBC % (auto) (0.0-0.2) /100WBC VBG pH 7.27 L (7.32-7.43) VBG pCO2 26 mmHg VBG pO2 69 mmHg VBG HCO3 12 L (22-26) mmol/L VBG O2 Saturation 93.0 % VBG Base Excess -12.6 mmol/L Sodium (135-145) mmol/L Potassium (3.3-5.1) mmol/L Chloride (96-108) mmol/L Carbon Dioxide (22-29) mmol/L Anion Gap (12-20) BUN (9-16) mg/dL Creatinine (0.5-1.4) mg/dL Estim Creat Clear Calc Estimated GFR POC Glucose 55 L* 62 (60-115) mg/dL Random Glucose (60-115) mg/dL Osmolality (281-305) mosm/kg Lactic Acid (0.5-2.0) mmol/L Calcium (8.4-10.2) mg/dL Magnesium (1.6-2.6) mg/dL Total Bilirubin (0.0-1.0) mg/dL Direct Bilirubin (0.0-0.5) mg/dL AST (5-31) U/L ALT (0-31) U/L Alkaline Phosphatase (39-117) U/L Troponin I High Sens (<3.5-17.0) ng/L Total Protein (6.5-8.0) g/dL Albumin (3.5-5.0) g/dL Lipase (8-78) U/L Ethyl Alcohol mg/dL Influenza Type A (PCR) (Negative) Influenza Type B (PCR) (Negative) RSV RNA Qual (PCR) (Negative) SARS-CoV-2 RNA (RT-PCR) (Negative) Independent Interpretation I performed an independent interpretation of an: EKG and Ultrasound (normal ) Interpretation: Rate: 78 Rhythm: NSR [place]: normal , LVH Normal P waves. Normal BOB. Normal QRS complex. ST T wave : no [place], inverted t waves V1 and V2 qTC: 458 prior studies: t waves new from prior The study has been interpreted contemporaneously by me. . Radiology Impression Discussion of test interpretation with radiology: I have reviewed the radiologist's reading. Independent Historian Clinical information obtained from an independent historian. History obtained from or confirmed by: Spouse External Record Review External record reviewed: Office record Critical Care Time Critical Care Time Critical Care Time: Yes Total Critical Care Time: 45 Attestation: review of records, admission, 2L of IVF for resuscitation, intervention for hypoglycemia I attest to this time spent taking care of the patient Discharge Plan Discharge Clinical Impression: Nausea & vomiting, Hypoglycemia, Acute dehydration, Metabolic acidosis Patient Disposition: Admitted As Inpatient Prescriptions: No Action carisoprodol 350 mg tablet 350 mg PO BID carvedilol 6.25 mg tablet 6.25 mg PO BID ferrous sulfate [iron] 325 mg (65 mg iron) Tablet 325 mg PO 3XW omeprazole 20 mg capsule,delayed release(DR/EC) 20 mg PO BID montelukast 10 mg tablet 10 mg PO DAILY furosemide 20 mg tablet 20 mg PO DAILY albuterol sulfate 90 mcg/actuation Hfa Aerosol Inhaler 1 puff INHALATION NEEDED PRN (Reason: Shortness Of Breath) olmesartan 20 mg tablet 20 mg PO DAILY ezetimibe 10 mg tablet 10 mg PO DAILY melatonin 5 mg Capsule 5 mg PO DAILY Asmanex HFA 200 mcg/actuation HFA aerosol inhaler 2 puff INHALATION BID aspirin 81 mg Capsule 81 mg PO DAILY Leqvio 284 mg/1.5 mL syringe 284 mg subcut DIRECTED atorvastatin 40 mg Tablet 40 mg PO DAILY Qty: 30 0RF Print Language: Slovak
[2024-05-13 11:20] LABS: MANUAL DIFF FLAG NO
[2024-05-13 11:21] LABS: Basophils Percent Auto 0.5 % (0-2); Eosinophils Absolute Auto 0.1 X10*3/uL (0.0-0.4); Eosinophils Percent Auto 1.2 % (0-4); Hematocrit 41.2 % (37.0-47.0); Hemoglobin 13.3 g/dl (12.0-16.0); Imm Gran Abs Auto 0.03 X10*3/uL (0.00-0.03); Imm Gran Pct Auto 0.4 % (0.0-0.4); Lymphocytes Absolute Auto 1.6 X10*3/uL (1.2-4.9); Lymphocytes Percent Auto 20.3 % (20-40); Mean Corpuscular HGB Conc 32.3 g/dl (31.0-35.0); Mean Corpuscular Hemoglobin 28.1 pg (27.0-33.0); Mean Corpuscular Volume 86.9 fL (80.0-98.0); Mean Platelet Volume 9.9 fL (9.4-12.3); Monocytes Absolute Auto 0.6 X10*3/uL (0.1-1.2); Monocytes Percent Auto 7.3 % (2-11); Neutrophils Absolute Auto 5.4 x10*3/uL (2.0-8.3); Neutrophils Percent Auto 70.3 % (45-73); Platelet Count 259 X10*3/uL (160-400); Red Blood Count 4.74 X10*6/uL (4.20-5.50); Red Cell Distribution Width 13.2 % (11.0-16.0); White Blood Count 7.6 X10*3/uL (4.8-10.8)
[2024-05-13] MEDS: ondansetron HCL 4 MG/2 ML VIAL IVPUSH (11:23)
[2024-05-13] MEDS: Lactated Ringers 1,000 ML 999 ML IV ×2 (11:24→13:44)
[2024-05-13 11:44] LABS: Troponin-I High Sensitivity < 2.7 ng/L (<3.5-17.0)
[2024-05-13 11:49] LABS: Alanine Aminotransferase 39 U/L (0-31); Alkaline Phosphatase 86 U/L (39-117); Anion Gap 24 (12-20); Aspartate Amino Transferase 48 U/L (5-31); Bilirubin Direct 0.2 mg/dL (0.0-0.5); Bilirubin Total 0.5 mg/dL (0.0-1.0); Blood Urea Nitrogen 20 mg/dL (9-16); Calcium 9.3 mg/dL (8.4-10.2); Carbon Dioxide 12 mmol/L (22-29); Chloride 106 mmol/L (96-108); Estimated Glomerular Filt Rate > 60; Lipase 11 U/L (8-78); Potassium 4.6 mmol/L (3.3-5.1); Sodium 137 mmol/L (135-145); Total Protein 6.7 g/dL (6.5-8.0)
[2024-05-13 11:50] LABS: Glucose Random 56 mg/dL (60-115)
[2024-05-13 12:02] LABS: Influenza A PCR NEGATIVE (Negative); Influenza B PCR NEGATIVE (Negative); Resp Syncy Virus RNA Qual PCR NEGATIVE (Negative); SARS COV2 PCR INHOUSE NEGATIVE (Negative)
[2024-05-13] MEDS: Pantoprazole Sodium 40 MG/10 ML VIAL IVPUSH ×2 (12:35→17:14)
[2024-05-13] MEDS: Dextrose 5 % and 0.45 % NaCl 1,000 ML 50 ML IVCONT (12:35)
[2024-05-13 12:42] LABS: Venous Blood Gas Refer to POC result
[2024-05-13 12:43] LABS: VBG Base Excess -12.6 mmol/L; VBG HCO3 12 mmol/L (22-26); VBG pCO2 26 mmHg; VBG pH 7.27 (7.32-7.43); VBG pO2 69 mmHg
[2024-05-13 12:51] LABS: Lactic Acid 1.1 mmol/L (0.5-2.0)
[2024-05-13 12:52] LABS: Osmolality, Serum 290 mosm/kg (281-305)
[2024-05-13 12:56] LABS: Ethanol < 10 mg/dL
[2024-05-13 13:53] LABS: Glucose, Whole Blood 55 mg/dL (60-115)
[2024-05-13 13:53] LABS: Glucose, Whole Blood 62 mg/dL (60-115)
--- NOTE | 2024-05-13 14:34 | PM.IMHP ---
History of Present Illness Date of Service: 05/13/24 Attending physician on admission: Hank Stewart Chief Complaint: Nausea, diarrhea, abdominal pain Pt is a 73-year-old female with a PMH significant for?lupus, HTN, HLD, fibromyalgia, asthma, GERD, and migraines who presents to the ED with?nausea, diarrhea, and abdominal x5-6 days. Pt reports last Thursday thought she was experiencing a dental implant infection secondary to upper right jaw pain and swelling. Saw both her dentist and urgent care and was started on doxycycline. 1-2 days later developed intractable nausea, diarrhea, and abdominal pain, as well as altered taste. Reports diarrhea episodes every half hour, and has been unable to tolerate p.o. intake despite stopping the doxycycline on Thursday or Thursday. Denies any vomiting or significant dry heaving. Pt also states has been weak and tired. PCP had patient's stool samples tested and reportedly came back positive for occult blood. Symptoms persisted this morning and patient as well felt lightheaded, particularly weak, and had some SOB which prompted visit to the ED for further evaluation. Last episode of diarrhea earlier this morning. Of note, patient reports has been chronically taking ibuprofen 400 mg b.i.d. for many years. Follows with Dr. Rivero in Gastroenterology, and reports EGD 2 years ago that was negative for gastric ulcer, but did find a ?dent? in her stomach. Patient also reports she often gets hypoglycemic if she does not eat every few hours. Denies chest pain/pressure, palpitations. No fever, chills. In the ED pt's vitals overall stable and WNL Labs were significant for VBG pH 7.27 with bicarb of 12, POC 55, and mildly elevated AST 48 and ALT 39. No leukocytosis. Stable H&H. Significant electrolyte abnormalities. Renal function around baseline serum osmolality WNL. Lactic acid WNL at 1.1. Troponin negative. Ethyl negative. Tested negative for flu, COVID, RSV. Abdominal ultrasound found dilated CBD measuring up to 1.3 cm, unchanged to previous on 12/28/2018. EKG demonstrated normal sinus with T-wave inversions V1, V3, and V4. Pt was treated with ondansetron, IVF, Protonix, and and started on D5 1/2 NS. Pt will be admitted to the hospital for treatment and further evaluation of hypoglycemia in the setting of intractable nausea and vomiting likely secondary to doxycycline and persistent ibuprofen use. Review of Systems Review of Systems: Negative except for that stated in the HPI. [facility] Medical History Mitral valve prolapse Lupus GERD (gastroesophageal reflux disease) COVID-19 long hauler Hypoglycemia Asthma Hypertension Hyperlipidemia Fibromyalgia Social History Household Members: Spouse Housing: House Do you presently have visiting nurse or other home services: No Alcohol intake: never Comment: pt. refusing bed alarm . Patient Tobacco Use Status: Never used Tobacco e-Cigarette/Vaping Use: Never Used Second Hand Smoke Exposure: No Advance Directives: Yes Advance Directives on File: Yes Advance Directives Date on File: 06/08/23 service: No Meds Allergies Allergy/AdvReac Type Severity Reaction Status Date / Time acetaminophen [From TYLENOL] Allergy Intermediate ITCHING Verified 05/13/24 10:48 epinephrine [EPINEPHRINE] Allergy Intermediate TACHYCARDIA Verified 05/13/24 10:48 iodine [IODINE] Allergy Intermediate RASH Verified 05/13/24 10:48 Penicillins [PENICILLINS] Allergy Intermediate ITCHING/HIV Verified 05/13/24 10:48 ES Sulfa (Sulfonamide Allergy Intermediate NAUSEA Verified 05/13/24 10:48 Antibiotics) [SULFA (SULFONAMIDE ANTIBIOTICS)] egg [EGG] Allergy Mild SENSITIVITY Verified 05/13/24 10:48 diclofenac [DICLOFENAC] Allergy Unknown HIVES Verified 05/13/24 10:48 levofloxacin [From LEVAQUIN] Allergy Unknown SEVERE Verified 05/13/24 10:48 ITCHING meperidine [Demerol] Allergy Unknown Rash Verified 05/13/24 10:48 penicillin V Allergy Unknown Rash Verified 05/13/24 10:48 procaine [From NOVOCAIN] Allergy Unknown UNKNOWN Verified 05/13/24 10:48 doxycycline AdvReac Stomach Verified 05/13/24 10:48 Upset SHELLFISH Allergy Severe ANAPHYLAXIS Uncoded 05/13/24 10:48 eggs Allergy Unknown Rash Uncoded 05/13/24 10:48 Novocain Allergy Unknown Rash Uncoded 05/13/24 10:48 From DEMEROL AdvReac Intermediate HYPOTENSION Uncoded 05/13/24 10:48 Active Medications: Current Medications Dextrose/Sodium Chloride (D51/2ns) 1,000 mls @ 50 mls/hr IVCONT .Q20H KARSTEN Last Admin: 05/13/24 12:35 Dose: 50 mls/hr Home Medications ?Medication ?Instructions ?Recorded ?Confirmed ?Last Taken ?Type albuterol sulfate 90 mcg/actuation 2 puff inhalation Q6H PRN 06/07/23 05/13/24 Unknown History aerosol inhaler Shortness Of Breath aspirin 81 mg capsule 81 mg PO BEDTIME 06/07/23 05/13/24 05/12/24 12:30 History carisoprodol 350 mg tablet 350 mg PO BID 06/07/23 05/13/24 05/12/24 12:30 History carvedilol 6.25 mg tablet 6.25 mg PO BID 06/07/23 05/13/24 05/12/24 12:30 History ezetimibe 10 mg tablet 10 mg PO DAILY 06/07/23 05/13/24 05/12/24 12:30 History ferrous sulfate 325 mg (65 mg 325 mg PO DAILY PRN Iron Levels 06/07/23 05/13/24 Unknown History iron) tablet (iron) furosemide 20 mg tablet 20 mg PO DAILY 06/07/23 05/13/24 05/12/24 12:30 History inclisiran 284 mg/1.5 mL 284 mg subcut [id number] 06/07/23 05/13/24 6 Months Ago History subcutaneous syringe (Leqvio) ~11/13/23 melatonin 5 mg capsule 5 mg PO BEDTIME 06/07/23 05/13/24 05/12/24 12:30 History mometasone 200 mcg/actuation HFA 2 puff inhalation BID 06/07/23 05/13/24 05/12/24 12:30 History aerosol inhaler (Asmanex HFA) montelukast 10 mg tablet 10 mg PO DAILY 06/07/23 05/13/24 05/12/24 12:30 History olmesartan 20 mg tablet 20 mg PO DAILY 06/07/23 05/13/24 05/12/24 12:30 History omeprazole 20 mg capsule,delayed 20 mg PO BID 06/07/23 05/13/24 05/12/24 12:30 History release cyclosporine 0.05 % eye drops in a 1 drp ophthalmic (eye) BID 05/13/24 05/13/24 05/12/24 12:30 History dropperette (Restasis) ibuprofen 200 mg tablet (Motrin IB) 400 mg PO BID 05/13/24 05/13/24 05/12/24 12:30 History propranolol 10 mg tablet 10 mg PO TID PRN anxiety 05/13/24 05/13/24 Unknown History Physical Exam Vital Signs and Narrative: Vital Signs: Last Vital Signs Temp 97.6 F 05/13/24 11:45 Pulse 85 05/13/24 12:36 Resp 16 05/13/24 12:36 BP 122/62 05/13/24 12:36 Pulse Ox 98 05/13/24 12:36 O2 Del Method Room Air 05/13/24 12:36 BMI result Body Mass Index 21.8 Constitutional: Alert, in no acute distress. Mental Status: Oriented to person, place and time. Eyes: Pupils are equal, round, and reactive to light. Ear, Nose, and Throat: Oropharynx clear, mucous membranes moist. Ears and nose without deformities. Trachea midline. No evidence of dental abscess. Face, jaw, and gumline non-tender to palpation. Respiratory: Clear to auscultation bilaterally. No wheezing, rales, or rhonchi. Cardiovascular: S1, S2 regular. No murmurs, rubs, or gallops. Gastrointestinal: Abdomen soft, non-distended, with minor central and left-sided tenderness to palpation. Normal bowel sounds. Neurologic: Cranial nerves II-XII are grossly intact bilaterally. No focal neurological deficits. Moves all extremities spontaneously. Skin: Warm, dry. Extremities: No edema. Psychiatric: Normal mood and affect. Results Labs 05/13/24 11:16 05/13/24 17:31 Labs: Laboratory Results - last 24 hr 05/13/24 05/13/24 05/13/24 11:06 11:16 12:33 MCV 86.9 MCH 28.1 MCHC 32.3 RDW 13.2 Plt Count 259 MPV 9.9 Immature Gran % (Auto) 0.4 Neut % (Auto) 70.3 Lymph % (Auto) 20.3 Twiggs % (Auto) 7.3 Eos % (Auto) 1.2 Baso % (Auto) 0.5 Lymph # (Auto) 1.6 Twiggs # (Auto) 0.6 Eos # (Auto) 0.1 Baso # (Auto) 0.0 Abs Immat Gran (auto) 0.03 Absolute Neuts (auto) 5.4 Absolute Nucleated RBC 0.000 Nucleated RBC % (auto) 0.0 VBG pH VBG pCO2 VBG pO2 VBG HCO3 VBG O2 Saturation VBG Base Excess Anion Gap 24 H Estim Creat Clear Calc 49.0 Estimated GFR > 60 POC Glucose Random Glucose 56 L* Osmolality 290 Lactic Acid 1.1 Calcium 9.3 Magnesium 2.0 Total Bilirubin 0.5 Direct Bilirubin 0.2 AST 48 H ALT 39 H Alkaline Phosphatase 86 Troponin I High Sens < 2.7 Total Protein 6.7 Albumin 4.0 Lipase 11 Ethyl Alcohol < 10 Influenza Type A (PCR) NEGATIVE Influenza Type B (PCR) NEGATIVE RSV RNA Qual (PCR) NEGATIVE SARS-CoV-2 RNA (RT-PCR) NEGATIVE 05/13/24 05/13/24 05/13/24 12:34 13:47 13:50 MCV MCH MCHC RDW Plt Count MPV Immature Gran % (Auto) Neut % (Auto) Lymph % (Auto) Twiggs % (Auto) Eos % (Auto) Baso % (Auto) Lymph # (Auto) Twiggs # (Auto) Eos # (Auto) Baso # (Auto) Abs Immat Gran (auto) Absolute Neuts (auto) Absolute Nucleated RBC Nucleated RBC % (auto) VBG pH 7.27 L VBG pCO2 26 VBG pO2 69 VBG HCO3 12 L VBG O2 Saturation 93.0 VBG Base Excess -12.6 Anion Gap Estim Creat Clear Calc Estimated GFR POC Glucose 55 L* 62 Random Glucose Osmolality Lactic Acid Calcium Magnesium Total Bilirubin Direct Bilirubin AST ALT Alkaline Phosphatase Troponin I High Sens Total Protein Albumin Lipase Ethyl Alcohol Influenza Type A (PCR) Influenza Type B (PCR) RSV RNA Qual (PCR) SARS-CoV-2 RNA (RT-PCR) Imaging Radiologist's Impressions: Impressions Abdomen Ultrasound 05/13/24 12:51 IMPRESSION: Dilated common duct measuring up to 1.3 cm. This is unchanged compared with abdominal ultrasound 12/28/2018. Assessment and Plan (1) Metabolic acidosis: Status: Acute (2) Hypoglycemia: Status: Acute (3) Nausea & vomiting: Qualifiers: Vomiting type: unspecified Qualified Code(s): R11.2 - Nausea with vomiting, unspecified Status: Acute Plan Pt is a 73-year-old female with a PMH significant for?lupus, HTN, HLD, fibromyalgia, asthma, GERD, and migraines who presents to the ED with?nausea, diarrhea, and abdominal x5-6 days. Pt reports last Thursday thought she was experiencing a dental implant infection secondary to upper right jaw pain and swelling. Pt will be admitted to the hospital for treatment and further evaluation of hypoglycemia in the setting of intractable nausea and vomiting likely secondary to doxycycline and persistent ibuprofen use. Intractable nausea, diarrhea, abdominal pain Likely secondary to doxycycline and ibuprophen use Abd imaging negative, labs largely reassuring No indication of infection at this time, so sepsis Pt given Zofran, IVF, and Protonix in the ED Antiemetics for nausea Continue maintenance IVF Protonix IV b.i.d. Check C diff, stool studies, stool for occult blood Diet as tolerated Hypoglycemia Patient has been hypoglycemic as low as 55 in the ED Likely secondary to reduced p.o. intake Patient is started on D5 1/2NS in the ED, continue for now POC QIDACHS Metabolic acidosis ABG BH 7.27 with bicarb 12 and anion gap 24 Likely secondary to dehydration Treat as above Question of dental implant infection Gross inspection of face and mouth benign Pt no longer complaining of dental pain or swelling F/U outpatient with dentist Asthma Not in acute exacerbation Continue home inhalers HTN Continue carvedilol, propranolol, olmesartan HLD Continue ezetimibe Full Code Attending:?Dr. Stewart DVT Prophylaxis: SCDs Pt will require a hospitalization of at least two nights for treatment of? with . Quality Stroke Does the patient have a stroke diagnosis?: No VTE Prior VTE?: No VTE Risk Level:: Medical - moderate - high VTE Device Contraindication: Treatment Not Indicated VTE Drug Contraindication: N/A - Med Ordered
[2024-05-13 14:59] LABS: Glucose, Whole Blood 56 mg/dL (60-115)
--- NOTE | 2024-05-13 16:05 | PC.NURSE ---
late entry for 1515. hospitsalist at bedside./ sitting up drinking juice and eating sandwicjh but needs encouragement.
--- NOTE | 2024-05-13 16:13 | PC.NURSE ---
axox3. daugheter at bedside. on phone [facility] pharmacy. coherent. c /o headache and gen weakness nightly x 5 days. encouraged to eat.
--- NOTE | 2024-05-13 16:32 | PHA.MEDREC ---
Pharmacy Consult ? Medication Reconciliation Pharmacy has completed the medication reconciliation. Confirmed medications with patient. She states she is no longer taking the Doxycycline 100mg due to her thinking it was making her sick. Patient also taking a Leqvio injection that she is taking once a year and the last dose she got she said was about 6 months ago.
[2024-05-13] MEDS: Prochlorperazine Edisylate 10 MG/2 ML VIAL IVPUSH (17:12)
[2024-05-13 17:13] LABS: Appearance Urine Clear; Color Urine Yellow; Glucose Urine UA Negative (Negative); Leukocyte Esterase Urine Negative (Negative); Nitrite Urine Negative (Negative); PH 5.5 (5.0-9.0); Urine Blood Negative (Negative); Urine Ketones >=160 mg/dL (Negative); Urine Protein Negative (Neg-Trace)
[2024-05-13] MEDS: Enoxaparin Sodium 40 MG/0.4 ML SYRINGE SUBCUT (17:13)
[2024-05-13 17:17] LABS: Glucose, Whole Blood 53 mg/dL (60-115)
--- NOTE | 2024-05-13 17:41 | PC.NURSE ---
encouraged to eat/drink what's at bedside
[2024-05-13 17:55] LABS: Anion Gap 17 (12-20); Blood Urea Nitrogen 17 mg/dL (9-16); Calcium 8.8 mg/dL (8.4-10.2); Carbon Dioxide 15 mmol/L (22-29); Chloride 110 mmol/L (96-108); Creatinine Clr Calc Pharmacy 56.6; Estimated Glomerular Filt Rate > 60; Glucose Random 75 mg/dL (60-115); Potassium 4.3 mmol/L (3.3-5.1); Sodium 138 mmol/L (135-145)
[2024-05-13 18:46] LABS: VBG Base Excess -8.8 mmol/L; VBG HCO3 11 mmol/L (22-26); VBG pCO2 14 mmHg; VBG pO2 245 mmHg
[2024-05-13 18:47] LABS: Venous Blood Gas Refer to POC result
--- NOTE | 2024-05-13 19:02 | PC.NURSE ---
c/o headache. provider made aware.
[2024-05-13 19:17] LABS: Glucose, Whole Blood 73 mg/dL (60-115)
[2024-05-13] MEDS: carisoprodoL 350 MG TABLET PO (20:05)
[2024-05-13] MEDS: carvediloL 6.25 MG TABLET PO (20:05)
[2024-05-13 20:10] LABS: Glucose, Whole Blood 80 mg/dL (60-115)
[2024-05-14] VITALS (11 sets, daily range): BP systolic 138–183; BP diastolic 66–81; PULSE 77–86; RESP 16–18; TEMP 36–36.4; O2SAT 97–100
[2024-05-14 02:21] LABS: OBS Int Ctl Valid YES; OBS1 NEGATIVE (NEGATIVE)
[2024-05-14 02:56] LABS: CDiff Gene PCR NEGATIVE (Negative)
[2024-05-14] MEDS: Loperamide HCl 2 MG CAPSULE 4 MG PO (03:56)
[2024-05-14] MEDS: Dextrose 5 % and 0.45 % NaCl 1,000 ML 50 ML IVCONT ×2 (03:59→21:00)
[2024-05-14] MEDS: ondansetron HCL 4 MG/2 ML VIAL IVPUSH (04:08)
--- NOTE | 2024-05-14 04:17 | MHC.PIE ---
p; pt c/o diarrhea, pt reports multiple liquid stool, pt also c/o nausea i; dr trivedi notified. new order imodium now e; prn zofran given. imodium given. will cont to [facility]
[2024-05-14] MEDS: Pantoprazole Sodium 40 MG/10 ML VIAL IVPUSH ×2 (06:08→16:50)
[2024-05-14 07:12] LABS: Hematocrit 41.3 % (37.0-47.0); Hemoglobin 13.3 g/dl (12.0-16.0); Mean Corpuscular HGB Conc 32.2 g/dl (31.0-35.0); Mean Corpuscular Hemoglobin 27.3 pg (27.0-33.0); Mean Corpuscular Volume 84.6 fL (80.0-98.0); Mean Platelet Volume 11.7 fL (9.4-12.3); Platelet Count 178 X10*3/uL (160-400); Red Blood Count 4.88 X10*6/uL (4.20-5.50); Red Cell Distribution Width 13.2 % (11.0-16.0); White Blood Count 7.2 X10*3/uL (4.8-10.8)
[2024-05-14 07:42] LABS: Anion Gap 13 (12-20); Blood Urea Nitrogen 8 mg/dL (9-16); Calcium 9.6 mg/dL (8.4-10.2); Carbon Dioxide 21 mmol/L (22-29); Chloride 109 mmol/L (96-108); Creatinine Clr Calc Pharmacy 58.2; Estimated Glomerular Filt Rate > 60; Glucose Random 106 mg/dL (60-115); Potassium 3.6 mmol/L (3.3-5.1); Sodium 139 mmol/L (135-145)
[2024-05-14] MEDS: Fluticasone Propionate 100 MCG BLST.W.DEV 1 PUFF INHALE ×2 (08:00→19:55)
[2024-05-14 08:13] LABS: Glucose, Whole Blood 117 mg/dL (60-115)
[2024-05-14] MEDS: Furosemide 20 MG TABLET PO (09:18)
[2024-05-14] MEDS: Valsartan 80 MG TABLET PO (09:19)
[2024-05-14] MEDS: Ezetimibe 10 MG TABLET PO (09:19)
[2024-05-14] MEDS: carvediloL 6.25 MG TABLET PO ×2 (09:19→21:05)
[2024-05-14 09:20] LABS: Alanine Aminotransferase 37 U/L (0-31); Aspartate Amino Transferase 38 U/L (5-31)
[2024-05-14 09:44] LABS: Adenovirus F 40/41 Not Detected (Not Detect.); Astrovirus Not Detected (Not Detect.); Campylobacter Not Detected (Not Detect.); Cryptosporidium Not Detected (Not Detect.); Cyclospora cayetanensis Not Detected (Not Detect.); E. coli EAEC Not Detected (Not Detect.); E. coli EPEC Detected (Not Detect.); E. coli ETEC Not Detected (Not Detect.); E. coli STEC Not Detected (Not Detect.); Entamoeba histolytica Not Detected (Not Detect.); Giardia lamblia Not Detected (Not Detect.); Norovirus GI/GII Not Detected (Not Detect.); Plesiomonas shigelloides Not Detected (Not Detect.); Rotavirus A Not Detected (Not Detect.); Salmonella Not Detected (Not Detect.); Sapovirus Not Detected (Not Detect.); Shigella sp./EIEC Not Detected (Not Detect.); Vibrio Not Detected (Not Detect.); Vibrio Cholerae Not Detected (Not Detect.); Yersinia enterocolitica Not Detected (Not Detect.)
[2024-05-14 11:19] LABS: Glucose, Whole Blood 102 mg/dL (60-115)
--- NOTE | 2024-05-14 11:39 | P.PNIM_ITS ---
Subjective Subjective Date of Service: 05/14/24 Interval History: Continues with loose stools. Tolerating orals well. Afebrile Review of Systems Denies chest pain Denies shortness of breath Denies nausea vomiting diarrhea Denies fever chills Physical Exam 2 Vital Signs: Vital Signs: Last Vital Signs Temp 96.8 F 05/14/24 07:59 Pulse 86 05/14/24 09:19 Resp 16 05/14/24 08:04 BP 183/81 H 05/14/24 09:19 Pulse Ox 98 05/14/24 07:59 O2 Del Method Room Air 05/14/24 07:59 BMI result Body Mass Index 21.8 Const: Other: Awake alert no acute distress Resp: Other: Clear to auscultation bilaterally no rales rhonchi or wheezes Cardio: Other: No S4; positive S1-S2; no S3 murmurs rubs or gallops GI: Other: Soft nontender positive bowel sounds Extrem: Other: No edema bilaterally Objective Data Active Medications Albuterol Sulfate (Albuterol Sulfate 90 Mcg 8 Gm Inhaler) 2 puff INHALE Q6H PRN PRN Reason: Shortness Of Breath Carisoprodol (Carisoprodol 350 Mg Tablet) 350 mg PO BID [facility] Last Admin: 05/14/24 09:21 Dose: Not Given Documented By: RENATO Non-Admin Reason: Patient Refused Carvedilol (Carvedilol 6.25 Mg Tablet) 6.25 mg PO BID [facility]; Protocol Last Admin: 05/14/24 09:19 Dose: 6.25 mg Documented By: RENATO Ezetimibe (Ezetimibe 10 Mg Tablet) 10 mg PO DAILY [facility] Last Admin: 05/14/24 09:19 Dose: 10 mg Documented By: RENATO Ferrous Sulfate (Ferrous Sulfate 324 Mg Tablet.Dr) 324 mg PO DAILY PRN PRN Reason: Iron Levels Fluticasone Propionate (Fluticasone Propionate 100 Mcg Blst.W.Dev) 1 puff INHALE RBID [facility] Last Admin: 05/14/24 08:00 Dose: 1 puff Documented By: DANIEL Furosemide (Furosemide 20 Mg Tablet) 20 mg PO DAILY [facility]; Protocol Last Admin: 05/14/24 09:18 Dose: 20 mg Documented By: RENATO Glucose (Glucose Gel 15 Gm Gel..Gram.) 15 gm PO Q15M PRN; Protocol PRN Reason: per Hypoglycemia Standing Ord. Dextrose/Sodium Chloride (D51/2ns) 1,000 mls @ 50 mls/hr IVCONT .Q20H [facility] Last Admin: 05/14/24 03:59 Dose: 50 mls/hr Documented By: ERNESTINA Dextrose (D10) 250 mls @ 750 mls/hr IV Q15M PRN; Protocol PRN Reason: per Hypoglycemia Standing Ord. Insulin Human Lispro (Insulin Lispro 100 Unit/Ml 3 Ml Vial) 0 unit SUBCUT QIDACHS [facility]; Protocol Last Admin: 05/14/24 11:25 Dose: Not Given Documented By: MEHRAN Non-Admin Reason: No Insulin Coverage Melatonin (Melatonin 3 Mg Tablet) 6 mg PO BEDTIME PRN PRN Reason: Insomnia Montelukast Sodium (Montelukast Sodium 10 Mg Tablet) 10 mg PO DAILY [facility] Last Admin: 05/14/24 09:21 Dose: Not Given Documented By: RENATO Non-Admin Reason: Patient Refused Ondansetron HCl (Ondansetron Hcl 4 Mg/2 Ml Vial) 4 mg IVPUSH Q8H PRN PRN Reason: Nausea and Vomiting Last Admin: 05/14/24 04:08 Dose: 4 mg Documented By: ERNESTINA Pantoprazole Sodium (Pantoprazole Sodium 40 Mg/10 Ml Vial) 40 mg IVPUSH BID@0630,1630 [facility] Last Admin: 05/14/24 06:08 Dose: 40 mg Documented By: ERNESTINA Propranolol HCl (Propranolol Hcl 10 Mg Tablet) 10 mg PO TID PRN; Protocol PRN Reason: anxiety Sodium Chloride (0.9 % Sodium Chloride Flush 3 Ml Syringe) 3 ml IVFLUSH QSHIFT [facility] Last Admin: 05/14/24 09:18 Dose: Not Given Documented By: RENATO Non-Admin Reason: IV Running Tramadol HCl (Tramadol Hcl 50 Mg Tablet) 25 mg PO Q6H PRN PRN Reason: Pain, Moderate(Pain Scale 4-6) Valsartan (Valsartan 80 Mg Tablet) 80 mg PO DAILY [facility] Last Admin: 05/14/24 09:19 Dose: 80 mg Documented By: RENATO Labs 05/14/24 06:26 05/14/24 06:26 Labs: Laboratory Results - last 24 hr 05/13/24 05/13/24 05/13/24 11:06 11:16 12:33 MCV MCH MCHC RDW Plt Count MPV Absolute Nucleated RBC Nucleated RBC % (auto) VBG pH VBG pCO2 VBG pO2 VBG HCO3 VBG O2 Saturation VBG Base Excess Anion Gap 24 H Estim Creat Clear Calc 49.0 Estimated GFR > 60 POC Glucose Random Glucose 56 L* Osmolality 290 Lactic Acid 1.1 Calcium 9.3 Magnesium 2.0 Total Bilirubin 0.5 Direct Bilirubin 0.2 AST 48 H ALT 39 H Alkaline Phosphatase 86 Troponin I High Sens < 2.7 Total Protein 6.7 Albumin 4.0 Lipase 11 Urine Color Urine Appearance Urine pH Ur Specific Mackey Urine Protein Urine Glucose (UA) Urine Ketones Urine Blood Urine Nitrite Ur Leukocyte Esterase Stool Occult Blood Stl C. cayetanensis PCR Stool Rotavirus A PCR Stl Adenov F 40/41 PCR Stool Astrovirus (PCR) Stool Campylobacter PCR Stool Cryptosporidium PCR Stl Sh Tox Pr E STEC PCR Stool E coli O157 PCR Stl Enterotoxigenic E PCR Stool EPEC (PCR) Stool EAEC (PCR) Stl E. histolytica PCR Stool Giardia Lamblia PCR Stl P. shigelloides PCR Stool Salmonella PCR Stool Sapovirus (PCR) Stl Shigella/EIEC PCR St Y.enterocolitica PCR Stool Vibrio (PCR) Stl Vibrio cholerae PCR Stl Norovirus GI/GII PCR Ethyl Alcohol < 10 C. difficile Tox B Gene Influenza Type A (PCR) NEGATIVE Influenza Type B (PCR) NEGATIVE RSV RNA Qual (PCR) NEGATIVE SARS-CoV-2 RNA (RT-PCR) NEGATIVE 05/13/24 05/13/24 05/13/24 12:34 13:47 13:50 MCV MCH MCHC RDW Plt Count MPV Absolute Nucleated RBC Nucleated RBC % (auto) VBG pH 7.27 L VBG pCO2 26 VBG pO2 69 VBG HCO3 12 L VBG O2 Saturation 93.0 VBG Base Excess -12.6 Anion Gap Estim Creat Clear Calc Estimated GFR POC Glucose 55 L* 62 Random Glucose Osmolality Lactic Acid Calcium Magnesium Total Bilirubin Direct Bilirubin AST ALT Alkaline Phosphatase Troponin I High Sens Total Protein Albumin Lipase Urine Color Urine Appearance Urine pH Ur Specific Mackey Urine Protein Urine Glucose (UA) Urine Ketones Urine Blood Urine Nitrite Ur Leukocyte Esterase Stool Occult Blood Stl C. cayetanensis PCR Stool Rotavirus A PCR Stl Adenov F PCR Stool Astrovirus (PCR) Stool Campylobacter PCR Stool Cryptosporidium PCR Stl Sh Tox Pr E STEC PCR Stool E coli O157 PCR Stl Enterotoxigenic E PCR Stool EPEC (PCR) Stool EAEC (PCR) Stl E. histolytica PCR Stool Giardia Lamblia PCR Stl P. shigelloides PCR Stool Salmonella PCR Stool Sapovirus (PCR) Stl Shigella/EIEC PCR St Y.enterocolitica PCR Stool Vibrio (PCR) Stl Vibrio cholerae PCR Stl Norovirus GI/GII PCR Ethyl Alcohol C. difficile Tox B Gene Influenza Type A (PCR) Influenza Type B (PCR) RSV RNA Qual (PCR) SARS-CoV-2 RNA (RT-PCR) 05/13/24 05/13/24 05/13/24 14:55 17:01 17:13 MCV MCH MCHC RDW Plt Count MPV Absolute Nucleated RBC Nucleated RBC % (auto) VBG pH VBG pCO2 VBG pO2 VBG HCO3 VBG O2 Saturation VBG Base Excess Anion Gap Estim Creat Clear Calc Estimated GFR POC Glucose 56 L* 53 L* Random Glucose Osmolality Lactic Acid Calcium Magnesium Total Bilirubin Direct Bilirubin AST ALT Alkaline Phosphatase Troponin I High Sens Total Protein Albumin Lipase Urine Color Yellow Urine Appearance Clear Urine pH 5.5 Ur Specific Mackey 1.010 Urine Protein Negative Urine Glucose (UA) Negative Urine Ketones >=160 Urine Blood Negative Urine Nitrite Negative Ur Leukocyte Esterase Negative Stool Occult Blood Stl C. cayetanensis PCR Stool Rotavirus A PCR Stl Adenov F PCR Stool Astrovirus (PCR) Stool Campylobacter PCR Stool Cryptosporidium PCR Stl Sh Tox Pr E STEC PCR Stool E coli O157 PCR Stl Enterotoxigenic E PCR Stool EPEC (PCR) Stool EAEC (PCR) Stl E. histolytica PCR Stool Giardia Lamblia PCR Stl P. shigelloides PCR Stool Salmonella PCR Stool Sapovirus (PCR) Stl Shigella/EIEC PCR St Y.enterocolitica PCR Stool Vibrio (PCR) Stl Vibrio cholerae PCR Stl Norovirus GI/GII PCR Ethyl Alcohol C. difficile Tox B Gene Influenza Type A (PCR) Influenza Type B (PCR) RSV RNA Qual (PCR) SARS-CoV-2 RNA (RT-PCR) 05/13/24 05/13/24 05/13/24 17:31 18:38 19:14 MCV MCH MCHC RDW Plt Count MPV Absolute Nucleated RBC Nucleated RBC % (auto) VBG pH 7.50 H VBG pCO2 14 VBG pO2 245 VBG HCO3 11 L VBG O2 Saturation 100.0 VBG Base Excess -8.8 Anion Gap 17 Estim Creat Clear Calc 56.6 Estimated GFR > 60 POC Glucose 73 Random Glucose 75 Osmolality Lactic Acid Calcium 8.8 Magnesium Total Bilirubin Direct Bilirubin AST ALT Alkaline Phosphatase Troponin I High Sens Total Protein Albumin Lipase Urine Color Urine Appearance Urine pH Ur Specific Mackey Urine Protein Urine Glucose (UA) Urine Ketones Urine Blood Urine Nitrite Ur Leukocyte Esterase Stool Occult Blood Stl C. cayetanensis PCR Stool Rotavirus A PCR Stl Adenov F 40/41 PCR Stool Astrovirus (PCR) Stool Campylobacter PCR Stool Cryptosporidium PCR Stl Sh Tox Pr E STEC PCR Stool E coli O157 PCR Stl Enterotoxigenic E PCR Stool EPEC (PCR) Stool EAEC (PCR) Stl E. histolytica PCR Stool Giardia Lamblia PCR Stl P. shigelloides PCR Stool Salmonella PCR Stool Sapovirus (PCR) Stl Shigella/EIEC PCR St Y.enterocolitica PCR Stool Vibrio (PCR) Stl Vibrio cholerae PCR Stl Norovirus GI/GII PCR Ethyl Alcohol C. difficile Tox B Gene Influenza Type A (PCR) Influenza Type B (PCR) RSV RNA Qual (PCR) SARS-CoV-2 RNA (RT-PCR) 05/13/24 05/14/24 05/14/24 19:54 01:57 06:26 MCV 84.6 MCH 27.3 MCHC 32.2 RDW 13.2 Plt Count 178 D MPV 11.7 Absolute Nucleated RBC 0.000 Nucleated RBC % (auto) 0.0 VBG pH VBG pCO2 VBG pO2 VBG HCO3 VBG O2 Saturation VBG Base Excess Anion Gap 13 Estim Creat Clear Calc 58.2 Estimated GFR > 60 POC Glucose 80 Random Glucose 106 Osmolality Lactic Acid Calcium 9.6 D Magnesium Total Bilirubin Direct Bilirubin AST 38 H ALT 37 H Alkaline Phosphatase Troponin I High Sens Total Protein Albumin Lipase Urine Color Urine Appearance Urine pH Ur Specific Mackey Urine Protein Urine Glucose (UA) Urine Ketones Urine Blood Urine Nitrite Ur Leukocyte Esterase Stool Occult Blood NEGATIVE Stl C. cayetanensis PCR Not Detected Stool Rotavirus A PCR Not Detected Stl Adenov F 40/41 PCR Not Detected Stool Astrovirus (PCR) Not Detected Stool Campylobacter PCR Not Detected Stool Cryptosporidium PCR Not Detected Stl Sh Tox Pr E STEC PCR Not Detected Stool E coli O157 PCR Not applicable Stl Enterotoxigenic E PCR Not Detected Stool EPEC (PCR) Detected A Stool EAEC (PCR) Not Detected Stl E. histolytica PCR Not Detected Stool Giardia Lamblia PCR Not Detected Stl P. shigelloides PCR Not Detected Stool Salmonella PCR Not Detected Stool Sapovirus (PCR) Not Detected Stl Shigella/EIEC PCR Not Detected St Y.enterocolitica PCR Not Detected Stool Vibrio (PCR) Not Detected Stl Vibrio cholerae PCR Not Detected Stl Norovirus GI/GII PCR Not Detected Ethyl Alcohol C. difficile Tox B Gene NEGATIVE Influenza Type A (PCR) Influenza Type B (PCR) RSV RNA Qual (PCR) SARS-CoV-2 RNA (RT-PCR) 05/14/24 05/14/24 08:02 11:06 MCV MCH MCHC RDW Plt Count MPV Absolute Nucleated RBC Nucleated RBC % (auto) VBG pH VBG pCO2 VBG pO2 VBG HCO3 VBG O2 Saturation VBG Base Excess Anion Gap Estim Creat Clear Calc Estimated GFR POC Glucose 117 H 102 Random Glucose Osmolality Lactic Acid Calcium Magnesium Total Bilirubin Direct Bilirubin AST ALT Alkaline Phosphatase Troponin I High Sens Total Protein Albumin Lipase Urine Color Urine Appearance Urine pH Ur Specific Mackey Urine Protein Urine Glucose (UA) Urine Ketones Urine Blood Urine Nitrite Ur Leukocyte Esterase Stool Occult Blood Stl C. cayetanensis PCR Stool Rotavirus A PCR Stl Adenov F 40/41 PCR Stool Astrovirus (PCR) Stool Campylobacter PCR Stool Cryptosporidium PCR Stl Sh Tox Pr E STEC PCR Stool E coli O157 PCR Stl Enterotoxigenic E PCR Stool EPEC (PCR) Stool EAEC (PCR) Stl E. histolytica PCR Stool Giardia Lamblia PCR Stl P. shigelloides PCR Stool Salmonella PCR Stool Sapovirus (PCR) Stl Shigella/EIEC PCR St Y.enterocolitica PCR Stool Vibrio (PCR) Stl Vibrio cholerae PCR Stl Norovirus GI/GII PCR Ethyl Alcohol C. difficile Tox B Gene Influenza Type A (PCR) Influenza Type B (PCR) RSV RNA Qual (PCR) SARS-CoV-2 RNA (RT-PCR) Assessment and Plan (1) Diarrhea: Status: Acute Plan Pt is a 73-year-old female with a PMH significant for?lupus, HTN, HLD, fibromyalgia, asthma, GERD, and migraines who presents to the ED with?nausea, diarrhea, and abdominal x5-6 days. Pt reports last Thursday thought she was experiencing a dental implant infection secondary to upper right jaw pain and swelling. Pt will be admitted to the hospital for treatment and further evaluation of hypoglycemia in the setting of intractable nausea and vomiting likely secondary to doxycycline and persistent ibuprofen use. 1. Diarrhea secondary to EPEC -supportive therapies. -DC IV fluids and follow p.o. intake. . . If creatinine unaffected in a.m. will DC -Lomotil p.r.n. 2.Hypoglycemia -resolved. Will DC IV fluids and follow clinically 3.Metabolic acidosis -resolved with volume . . . Bicarb essentially normalized/gap normal -follow renals/divalent in a.m. Full Code SCDs Patient will require ongoing hospitalization to document adequate oral intake in the backdrop of EPEC diarrhea Quality Stroke Does the patient have a stroke diagnosis?: No VTE Prior VTE?: No VTE Risk Level:: Medical - moderate - high VTE Device Contraindication: Treatment Not Indicated VTE Drug Contraindication: N/A - Med Ordered
--- NOTE | 2024-05-14 12:28 | MHC.CM.PN ---
pt lives w/ they are independent will not requre servies when dcd
[2024-05-14] MEDS: Diphenoxylate/Atrop 2.5/0.025 TABLET 1 TAB PO (13:44)
[2024-05-14 16:40] LABS: Glucose, Whole Blood 93 mg/dL (60-115)
[2024-05-14] MEDS: 0.9 % Sodium Chloride Flush 3 ML SYRINGE IVFLUSH ×2 (16:50→21:06)
--- NOTE | 2024-05-14 18:23 | PC.NURSE ---
Pt c/o chest heaviness. BP 150/80 manually. Pt states this started after receiving IV protonix. States head is hot but arms are cold. Dr Stewart in to see pt. Atarax po ordered for pt
[2024-05-14] MEDS: hydrOXYzine HCL 25 MG TABLET PO (18:34)
[2024-05-14 20:39] LABS: Glucose, Whole Blood 107 mg/dL (60-115)
[2024-05-14] MEDS: carisoprodoL 350 MG TABLET PO (21:00)
[2024-05-15 03:04] VITALS: BP 128/66; PULSE 71; RESP 16; TEMP 36.6; O2SAT 96
[2024-05-15 07:17] VITALS: BP 123/71; PULSE 75; RESP 18; TEMP 36.2; O2SAT 96
[2024-05-15 07:39] LABS: Glucose, Whole Blood 100 mg/dL (60-115)
[2024-05-15] MEDS: Fluticasone Propionate 100 MCG BLST.W.DEV 1 PUFF INHALE (08:01)
[2024-05-15 08:02] VITALS: PULSE 78; RESP 17; O2SAT 98
[2024-05-15 08:46] VITALS: BP 124/68
[2024-05-15] MEDS: Furosemide 20 MG TABLET PO (08:46)
[2024-05-15 08:47] VITALS: PULSE 74
[2024-05-15] MEDS: Ezetimibe 10 MG TABLET PO (08:47)
[2024-05-15] MEDS: carvediloL 6.25 MG TABLET PO (08:47)
[2024-05-15] MEDS: Montelukast Sodium 10 MG TABLET PO (08:47)
[2024-05-15] MEDS: Valsartan 80 MG TABLET PO (08:47)
[2024-05-15 09:27] LABS: MANUAL DIFF FLAG NO
[2024-05-15 09:36] LABS: Basophils Percent Auto 0.4 % (0-2); Eosinophils Absolute Auto 0.2 X10*3/uL (0.0-0.4); Eosinophils Percent Auto 3.1 % (0-4); Hematocrit 40.7 % (37.0-47.0); Hemoglobin 13.2 g/dl (12.0-16.0); Imm Gran Abs Auto 0.01 X10*3/uL (0.00-0.03); Imm Gran Pct Auto 0.1 % (0.0-0.4); Lymphocytes Absolute Auto 1.9 X10*3/uL (1.2-4.9); Lymphocytes Percent Auto 27.3 % (20-40); Mean Corpuscular HGB Conc 32.4 g/dl (31.0-35.0); Mean Corpuscular Hemoglobin 27.6 pg (27.0-33.0); Mean Platelet Volume 10.1 fL (9.4-12.3); Monocytes Absolute Auto 0.7 X10*3/uL (0.1-1.2); Monocytes Percent Auto 9.8 % (2-11); Neutrophils Percent Auto 59.3 % (45-73); Platelet Count 243 X10*3/uL (160-400); Red Blood Count 4.79 X10*6/uL (4.20-5.50); Red Cell Distribution Width 13.2 % (11.0-16.0); White Blood Count 6.8 X10*3/uL (4.8-10.8)
[2024-05-15 10:04] LABS: Alanine Aminotransferase 34 U/L (0-31); Albumin Level 4.1 g/dL (3.5-5.0); Alkaline Phosphatase 85 U/L (39-117); Anion Gap 13 (12-20); Aspartate Amino Transferase 38 U/L (5-31); Bilirubin Total 0.5 mg/dL (0.0-1.0); Blood Urea Nitrogen 6 mg/dL (9-16); Calcium 9.8 mg/dL (8.4-10.2); Carbon Dioxide 24 mmol/L (22-29); Chloride 107 mmol/L (96-108); Creatinine Clr Calc Pharmacy 58.2; Estimated Glomerular Filt Rate > 60; Glucose Fasting 105 mg/dL (60-99); Sodium 141 mmol/L (135-145); Total Protein 6.8 g/dL (6.5-8.0)
[2024-05-15] MEDS: Potassium Chloride ER 20 MEQ TAB.ER.PRT PO (11:14)
--- NOTE | 2024-05-15 11:14 | PM.DS ---
DS: Providers Provider Date of Service: 05/15/24 Date of admission: 05/13/24 15:39 Date of discharge: 05/15/24 Primary care physician: Parvez Altamirano MD DS: Diagnosis Discharge Diagnosis (1) Diarrhea: Status: Acute DS: Summary Hospital Course Hospital Course: 73-year-old female with a PMH significant for?lupus, HTN, HLD, fibromyalgia, asthma, GERD, and migraines who presents to the ED with?nausea, diarrhea, and abdominal x5-6 days. Pt reports last Thursday thought she was experiencing a dental implant infection secondary to upper right jaw pain and swelling. Saw both her dentist and urgent care and was started on doxycycline. 1-2 days later developed intractable nausea, diarrhea, and abdominal pain, as well as altered taste. Reports diarrhea episodes every half hour, and has been unable to tolerate p.o. intake despite stopping the doxycycline on Thursday or Thursday. Denies any vomiting or significant dry heaving. Pt also states has been weak and tired. PCP had patient's stool samples tested and reportedly came back positive for occult blood. Symptoms persisted this morning and patient as well felt lightheaded, particularly weak, and had some SOB which prompted visit to the ED for further evaluation. Last episode of diarrhea earlier this morning. Of note, patient reports has been chronically taking ibuprofen 400 mg b.i.d. for many years. Follows with Dr. Rivero in Gastroenterology, and reports EGD 2 years ago that was negative for gastric ulcer, but did find a ?dent? in her stomach. Patient also reports she often gets hypoglycemic if she does not eat every few hours. Denies chest pain/pressure, palpitations. No fever, chills. In the ED pt's vitals overall stable and WNL Labs were significant for VBG pH 7.27 with bicarb of 12, POC 55, and mildly elevated AST 48 and ALT 39. No leukocytosis. Stable H&H. Significant electrolyte abnormalities. Renal function around baseline serum osmolality WNL. Lactic acid WNL at 1.1. Troponin negative. Ethyl negative. Tested negative for flu, COVID, RSV. Abdominal ultrasound found dilated CBD measuring up to 1.3 cm, unchanged to previous on 12/28/2018. EKG demonstrated normal sinus with T-wave inversions V1, V3, and V4. Pt was treated with ondansetron, IVF, Protonix, and and started on D5 1/2 NS. Pt will be admitted to the hospital for treatment and further evaluation of hypoglycemia in the setting of intractable nausea and vomiting likely secondary to doxycycline and persistent ibuprofen use. Hospital Course Patient admitted to general medical floor and started on supplemental IV fluids. Stool ultimately grew out EPEC. Over the course of 24 hours patient noted marked improvement with decrease in her diarrhea. At this point in time she is medically acceptable to discharge home and she is anxious to do so. She will follow up with her PCP next available appointment Time Attestation Discharge Coordination Time (in mins): 35 Quality: Safe Use of Opioids Does Pt have an Active Cancer Diagnosis on the Problem List?: No Quality: Stroke Does the patient have a stroke diagnosis?: No Physical Exam Vital Signs: Vital Signs: Last Vital Signs Temp 97.1 F 05/15/24 07:17 Pulse 74 05/15/24 08:47 Resp 17 05/15/24 08:02 BP 124/68 05/15/24 08:46 Pulse Ox 96 05/15/24 07:17 O2 Del Method Room Air 05/15/24 07:17 BMI result Body Mass Index 21.8 Const: Other: Awake alert no acute distress Resp: Other: Clear to auscultation bilaterally no rales rhonchi or wheezes Cardio: Other: No S4; positive S1-S2; no S3 murmurs rubs or gallops GI: Other: Soft nontender positive bowel sounds Extrem: Other: No edema bilaterally DS: Data Data Completed and Pending Labs on day of discharge: Laboratory Results - last 24 hr 05/14/24 05/14/24 05/14/24 11:06 16:35 20:32 WBC RBC Hgb Hct MCV MCH MCHC RDW Plt Count MPV Immature Gran % (Auto) Neut % (Auto) Lymph % (Auto) Fannin % (Auto) Eos % (Auto) Baso % (Auto) Lymph # (Auto) Fannin # (Auto) Eos # (Auto) Baso # (Auto) Abs Immat Gran (auto) Absolute Neuts (auto) Absolute Nucleated RBC Nucleated RBC % (auto) Sodium Potassium Chloride Carbon Dioxide Anion Gap BUN Creatinine Estim Creat Clear Calc Estimated GFR POC Glucose 102 93 107 Fasting Glucose Calcium Total Bilirubin AST ALT Alkaline Phosphatase Total Protein Albumin 05/15/24 05/15/24 07:19 09:21 WBC 6.8 RBC 4.79 Hgb 13.2 Hct 40.7 MCV 85.0 MCH 27.6 MCHC 32.4 RDW 13.2 Plt Count 243 D MPV 10.1 Immature Gran % (Auto) 0.1 Neut % (Auto) 59.3 Lymph % (Auto) 27.3 Fannin % (Auto) 9.8 Eos % (Auto) 3.1 Baso % (Auto) 0.4 Lymph # (Auto) 1.9 Fannin # (Auto) 0.7 Eos # (Auto) 0.2 Baso # (Auto) 0.0 Abs Immat Gran (auto) 0.01 Absolute Neuts (auto) 4.0 Absolute Nucleated RBC 0.000 Nucleated RBC % (auto) 0.0 Sodium 141 Potassium 3.0 L Chloride 107 Carbon Dioxide 24 Anion Gap 13 BUN 6 L Creatinine 0.69 Estim Creat Clear Calc 58.2 Estimated GFR > 60 POC Glucose 100 Fasting Glucose 105 H Calcium 9.8 Total Bilirubin 0.5 AST 38 H ALT 34 H Alkaline Phosphatase 85 Total Protein 6.8 Albumin 4.1 Discharge Plan Discharge Anticipated Discharge Date/Time: 05/15/24 11:09 Patient Disposition: Home, Self-Care Discharge Diagnosis: Diarrhea secondary to EPEC Referrals: Parvez Benedict MD [Primary Care Provider] - 1 Week Discharge Medications: Continued carisoprodol 350 mg tablet 350 mg PO BID carvedilol 6.25 mg tablet 6.25 mg PO BID ferrous sulfate [iron] 325 mg (65 mg iron) Tablet 325 mg PO DAILY PRN (Reason: Iron Levels) omeprazole 20 mg capsule,delayed release(DR/EC) 20 mg PO BID montelukast 10 mg tablet 10 mg PO DAILY furosemide 20 mg tablet 20 mg PO DAILY albuterol sulfate 90 mcg/actuation Hfa Aerosol Inhaler 2 puff INHALATION Q6H PRN (Reason: Shortness Of Breath) olmesartan 20 mg tablet 20 mg PO DAILY ezetimibe 10 mg tablet 10 mg PO DAILY melatonin 5 mg Capsule 5 mg PO BEDTIME Asmanex HFA 200 mcg/actuation HFA aerosol inhaler 2 puff INHALATION BID aspirin 81 mg Capsule 81 mg PO BEDTIME Leqvio 284 mg/1.5 mL syringe 284 mg subcut [id number] propranolol 10 mg tablet 10 mg PO TID PRN (Reason: anxiety) cyclosporine [Restasis] 0.05 % dropperette 1 drp ophthalmic (eye) BID ibuprofen [Motrin IB] 200 mg Tablet 400 mg PO BID Discharge Orders: Discharge Order (Routine); Ordered 05/15/24 Ordered By: Hank Stewart Diet: Advance to usual diet Activity on Discharge: As tolerated Stand Alone Forms: Patient Portal Discharge page Print Language: Moldovan Care Plan Goals: Resume all medicines as taken prior to the hospital Health Concerns: Drink plenty of fluids. You can use Imodium if you need to travel but when home try to avoid. Your symptoms should be self-limiting Plan of Treatment: Follow-up with your PCP next available Assessment: See discharge summary
--- NOTE | 2024-05-15 11:33 | MHC.CM.PN ---
pt dcd home self care
--- NOTE | 2024-05-16 17:35 | P.CNGI_ITS ---
History of Present Illness Data of Consult Service Date: 05/14/24 Requesting physician: Hank Stewart Primary Care Provider: Parvez Altamirano MD HPI Reason for consult: Abdominal pain, nausea and diarrhea 73 YF with lupus, HTN, HLD, fibromyalgia, asthma, GERD, and migraines who seen at [facility] with?nausea, diarrhea, and abdominal x5-6 days. Pt reported she thought she was experiencing a dental implant infection secondary to upper right jaw pain and swelling on 05/06/24. She saw her dentist and was seen in urgent care and was started on doxycycline. Pt noted intractable nausea, non-bloody diarrhea, and abdominal pain, as well as altered taste 1-2 days after she started taking doxycycline. Pt reported diarrhea episodes every half hour, and was unable to tolerate p.o. intake despite stopping the doxycycline on 05/09 or 05/10. She felt weak and tired and denied vomiting or significant dry heaving, chest pain/pressure, palpitations. No fever, chills. Pt reports wt loss of 4 lbs over the past week.. Per pt, her PCP had stool samples tested and which came back positive for occult blood. Pt came to [facility] since she felt lightheaded, particularly weak, and had some SOB. Last episode of diarrhea earlier this morning. Of note, patient reports has been chronically taking ibuprofen 400 mg b.i.d. for many years. Follows with Dr. Rivero in Gastroenterology, and reports EGD 2 years ago that was negative for gastric ulcer, but did find a ?dent? in her stomach. Patient also reports she often gets hypoglycemic if she does not eat every few hours. Pt denies smoking or ETOH abuse. Pt is , lives with her and has 1 daughter. In the ED pt's vitals overall stable and WNL Labs were significant for VBG pH 7.27 with bicarb of 12, POC 55, and mildly elevated AST 48 and ALT 39. No leukocytosis. Stable H&H. Significant electrolyte abnormalities. Renal function around baseline serum osmolality WNL. Lactic acid WNL at 1.1. Troponin negative. Ethyl negative. Tested negative for flu, COVID, RSV. Pt was treated with ondansetron, IVF, Protonix, and and started on D5 1/2 NS. She was admitted to the hospital for treatment and further evaluation of hypoglycemia in the setting of intractable nausea and vomiting likely secondary to doxycycline and persistent ibuprofen use. ABD US SHOWED: Dilated common duct measuring up to 1.3 cm. This is unchanged compared with abdominal ultrasound 12/28/2018. FAMILY HISTORY: Positive for colon cancer in a paternal aunt in her early 40's (had surgery lived for another 25 yrs) PAST GI HISTORY BY REVIEW OF MEDICAL RECORDS: Pt reports having a colonoscopy 10 yrs ago ? at [facility] - she reports polyps were removed which were not precancerous She was scheduled for an EGD and colonoscopy with Dr. Rivero in 2019 for evaluation of abdominal pain, diarrhea and colitis on CT scan. 03/08/2019 Colonoscope could only be advanced to the splenic flexure due to poor prep. Pt elected not to reschedule her colonoscopy since her symptoms had resolved Patient has been followed by Dr. Rivero since 2011 for GERD and Dysphagia: 11/20/11 EGD due to reflux despite maximal PPI therapy. Mild distal esophagitis. No erosions, focal erosive gastritis of the mid body. Bxs-mild focal chronic gastritis. H. pylori Neg. Lower GI: Bloating and gas is frequent-her main concern. Chronic issue x yrs. LLQ abdomen always feels uncomfortable . No constipation, diarrhea or blood in stool seen. No unintentional wt loss or hx of anemia. Tried a probiotic in the past, question type, but thought she felt worse on it. Does not take a fiber supplement. Hx of [facility] hospitalization 08/05/12 to 08/06/12 for colitis-question infectious vs. other etiology. Treated w/ clear liquids, IV Cipro and Flagyl. Continued on oral Cipro and Flagyl for [address] Rivero on consult. Noted: C olonoscopy at [facility] 03/2011 was normal, no mucosal abnormalites. 08/04/12 CT ABD and Pelvis w/o contrast. Colitis involving the distal descending and proximal to mid sigmoid colon which may be infectious or inflammatory. Given the length of the involved colon, diverticulitis is considered less likely. UC is also considered less likely since the rectum is spared . Chronic lumbosacral back pain. Has lidocaine oint. to apply prn-hasn't been using regularly. Labs: (During colitis event-[facility]) 08/06/12 H/H 11/.1/ 34.1, normal indices. CMP- TP 6.2, rest normal 08/05/12 CRP 3.70, AST 43, ALT 32, AP 119, TP 6.1, Alb 3.7 Review of Systems 2 Review of Systems: Negative except for that stated in the HPI. [facility] Past Medical History Medical History Hypertension Mitral valve prolapse Lupus GERD (gastroesophageal reflux disease) COVID-19 long hauler Hypoglycemia Asthma Hyperlipidemia Fibromyalgia Social History Social History Household Members: Spouse Housing: House Do you presently have visiting nurse or other home services: No Alcohol intake: never Comment: pt. refusing bed alarm . Patient Tobacco Use Status: Never used Tobacco e-Cigarette/Vaping Use: Never Used Second Hand Smoke Exposure: No Advance Directives Date on File: 06/08/23 service: No Meds Allergies Allergy/AdvReac Type Severity Reaction Status Date / Time acetaminophen [From TYLENOL] Allergy Intermediate ITCHING Verified 06/02/24 19:21 epinephrine [EPINEPHRINE] Allergy Intermediate TACHYCARDIA Verified 06/02/24 19:21 iodine [IODINE] Allergy Intermediate RASH Verified 06/02/24 19:21 Penicillins [PENICILLINS] Allergy Intermediate ITCHING/HIV Verified 06/02/24 19:21 ES Sulfa (Sulfonamide Allergy Intermediate NAUSEA Verified 06/02/24 19:21 Antibiotics) [SULFA (SULFONAMIDE ANTIBIOTICS)] egg [EGG] Allergy Mild SENSITIVITY Verified 06/02/24 19:21 diclofenac [DICLOFENAC] Allergy Unknown HIVES Verified 06/02/24 19:21 levofloxacin [From LEVAQUIN] Allergy Unknown SEVERE Verified 06/02/24 19:21 ITCHING meperidine [Demerol] Allergy Unknown Rash Verified 06/02/24 19:21 penicillin V Allergy Unknown Rash Verified 06/02/24 19:21 procaine [From NOVOCAIN] Allergy Unknown UNKNOWN Verified 06/02/24 19:21 doxycycline AdvReac Stomach Verified 06/02/24 19:21 Upset SHELLFISH Allergy Severe ANAPHYLAXIS Uncoded 05/25/24 23:58 eggs Allergy Unknown Rash Uncoded 05/25/24 23:58 Novocain Allergy Unknown Rash Uncoded 05/25/24 23:58 From DEMEROL AdvReac Intermediate HYPOTENSION Uncoded 05/25/24 23:58 Home Medications ?Medication ?Instructions ?Recorded ?Confirmed ?Last Taken ?Type albuterol sulfate 90 mcg/actuation 2 puff inhalation Q6H PRN 06/07/23 06/03/24 06/01/24 History aerosol inhaler Shortness Of Breath carisoprodol 350 mg tablet 350 mg PO BEDTIME 06/07/23 06/03/24 06/01/24 History carvedilol 6.25 mg tablet 6.25 mg PO BID 06/07/23 06/03/24 06/01/24 History ezetimibe 10 mg tablet 10 mg PO DAILY 06/07/23 06/03/24 06/01/24 History furosemide 20 mg tablet 20 mg PO DAILY PRN Salt levels 06/07/23 06/03/24 06/01/24 History inclisiran 284 mg/1.5 mL 284 mg subcut [id number] 06/07/23 06/03/24 6 Months Ago History subcutaneous syringe (Leqvio) ~11/13/23 mometasone 200 mcg/actuation HFA 2 puff inhalation DAILY 06/07/23 06/03/24 06/01/24 History aerosol inhaler (Asmanex HFA) montelukast 10 mg tablet 10 mg PO BEDTIME 06/07/23 06/03/24 06/01/24 History omeprazole 20 mg capsule,delayed 20 mg PO BID@0630,1630 06/07/23 06/03/24 06/01/24 History release cyclosporine 0.05 % eye drops in a 1 drp ophthalmic (eye) BID 05/13/24 06/03/24 06/01/24 History dropperette (Restasis) propranolol 10 mg tablet 10 mg PO BEDTIME PRN anxiety 05/13/24 06/03/24 06/01/24 History melatonin 10 mg tablet 10 mg PO BEDTIME 05/21/24 06/03/24 06/01/24 History olmesartan 40 mg tablet 40 mg PO DAILY 05/21/24 06/03/24 06/01/24 History Physical Exam 2 Vital Signs: Vital Signs: Last Vital Signs Temp 97.1 F 05/15/24 07:17 Pulse 74 05/15/24 08:47 Resp 17 05/15/24 08:02 BP 124/68 05/15/24 08:46 Pulse Ox 96 05/15/24 07:17 O2 Del Method Room Air 05/15/24 07:17 BMI result Body Mass Index 21.8 Const: Other: Awake alert no acute distress Resp: Other: Clear to auscultation bilaterally no rales rhonchi or wheezes Cardio: Other: No S4; positive S1-S2; no S3 murmurs rubs or gallops GI: Other: Soft nontender positive bowel sounds Extrem: Other: No edema bilaterally Results Labs 05/15/24 09:21 05/15/24 09:21 Assessment and Plan (1) Diarrhea: Status: Resolved (2) Nausea & vomiting: Qualifiers: Vomiting type: unspecified Qualified Code(s): R11.2 - Nausea with vomiting, unspecified Status: Resolved (3) Acute dehydration: Status: Resolved Plan 73 YF with lupus, HTN, HLD, fibromyalgia, asthma, GERD, and migraines hospitalized at [facility] on 05/13/24 with?nausea, diarrhea, and abdominal x5-6 days. Pt noted intractable nausea, non-bloody diarrhea, and abdominal pain, as well as altered taste 1-2 days after she started taking doxycycline. Stool studies were positive for entero-pathogenic E coli infection which is resolving. Pt reports improvement in diarrhea and has been tolerating oral diet. RECOMMENDATIONS: 1. Agree with IV fluids and antiemetics 2. Pt can FU in the GI clinic after discharge. She is due for a screening colonoscopy and prefers to have a stool cologuard instead. Stool Cologuard testing can be done as an outpatient once her acute symptoms have resolved. Procedures Date of Service Date of Service: 06/03/24
== END 2024-05-15 13:13 | disposition home or self-care (01) ==
LOC: HO.ED 14:36 → HO.EDOVER 15:58 → HO.S3 16:18
PROVIDERS: Admitting Provider Student in an Organized Health Care Education/Training Program; Emergency Provider Emergency Medicine; PCP Family Medicine; Visit Provider Hospitalist
DX: R19.7 Diarrhea, unspecified (principal); A04.4 Other intestinal Escherichia coli infections; E86.0 Dehydration; E16.2 Hypoglycemia, unspecified; E87.20 Acidosis, unspecified; R10.10 Upper abdominal pain, unspecified; R11.2 Nausea with vomiting, unspecified; M32.9 Systemic lupus erythematosus, unspecified; I10 Essential (primary) hypertension; E75.6 Lipid storage disorder, unspecified; K21.9 Gastro-esophageal reflux disease without esophagitis; Z03.818 Encounter for observation for suspected exposure to other biological agents ruled out; Z79.899 Other long term (current) drug therapy
CPT/HCPCS: 0241U; 36415; 76705; 80048; 80053; 80076; 80307; 81003; 82272; 82803; 82947; 83605; 83690; 83735; 83930; 84450; 84460; 84484; 85025; 85027; 87493; 87507; 93005; 96361; 96372; 96374; 96375; 96376; 99221; 99285; J0737; J1650; J2405; J2470; J7120

== ENCOUNTER → 2024-05-13 10:57 | Outpatient (BNV) | payer OTHER, SELFPAY | PROVIDERS: Admitting Provider Student in an Organized Health Care Education/Training Program; Emergency Provider Emergency Medicine; PCP Family Medicine; Visit Provider Internal Medicine | DX: R94.31 Abnormal electrocardiogram [ECG] [EKG] (principal) | CPT/HCPCS: 93010 ==

== ENCOUNTER → 2024-05-13 15:39 | Outpatient (BNV) | payer OTHER, SELFPAY | PROVIDERS: Admitting Provider Student in an Organized Health Care Education/Training Program; Emergency Provider Emergency Medicine; PCP Family Medicine; Visit Provider Student in an Organized Health Care Education/Training Program | DX: R19.7 Diarrhea, unspecified (principal) | CPT/HCPCS: 99222; 99232; 99239 ==

== ENCOUNTER → 2024-05-13 15:39 | Outpatient (BNV) | payer OTHER, SELFPAY | PROVIDERS: Admitting Provider Student in an Organized Health Care Education/Training Program; Emergency Provider Emergency Medicine; PCP Family Medicine; Visit Provider Internal Medicine Gastroenterology | DX: R19.7 Diarrhea, unspecified (principal); R11.2 Nausea with vomiting, unspecified; E86.0 Dehydration | CPT/HCPCS: 99232 ==

== ENCOUNTER 2024-05-16 21:48 | Emergency (ER) | payer OTHER, SELFPAY ==
[2024-05-16 22:48] VITALS: BP 129/78; PULSE 88; RESP 18; TEMP 36.7; O2SAT 96; BMI 21.4
[2024-05-16 23:33] LABS: MANUAL DIFF FLAG NO
[2024-05-16 23:35] LABS: Basophils Percent Auto 0.5 % (0-2); Eosinophils Absolute Auto 0.1 X10*3/uL (0.0-0.4); Eosinophils Percent Auto 1.7 % (0-4); Hematocrit 38.3 % (37.0-47.0); Hemoglobin 12.8 g/dl (12.0-16.0); Imm Gran Abs Auto 0.02 X10*3/uL (0.00-0.03); Imm Gran Pct Auto 0.3 % (0.0-0.4); Lymphocytes Absolute Auto 1.3 X10*3/uL (1.2-4.9); Lymphocytes Percent Auto 17.8 % (20-40); Mean Corpuscular HGB Conc 33.4 g/dl (31.0-35.0); Mean Corpuscular Hemoglobin 27.8 pg (27.0-33.0); Mean Corpuscular Volume 83.3 fL (80.0-98.0); Mean Platelet Volume 10.1 fL (9.4-12.3); Monocytes Absolute Auto 0.5 X10*3/uL (0.1-1.2); Neutrophils Absolute Auto 5.5 x10*3/uL (2.0-8.3); Neutrophils Percent Auto 73.7 % (45-73); Platelet Count 183 X10*3/uL (160-400); Red Cell Distribution Width 13.2 % (11.0-16.0); White Blood Count 7.5 X10*3/uL (4.8-10.8)
[2024-05-16 23:51] LABS: Alanine Aminotransferase 39 U/L (0-31); Albumin Level 4.1 g/dL (3.5-5.0); Alkaline Phosphatase 83 U/L (39-117); Anion Gap 15 (12-20); Aspartate Amino Transferase 44 U/L (5-31); Bilirubin Total 0.5 mg/dL (0.0-1.0); Blood Urea Nitrogen 13 mg/dL (9-16); Calcium 9.4 mg/dL (8.4-10.2); Carbon Dioxide 22 mmol/L (22-29); Chloride 107 mmol/L (96-108); Creatinine Clr Calc Pharmacy 62.8; Estimated Glomerular Filt Rate > 60; Glucose Random 102 mg/dL (60-115); Potassium 3.4 mmol/L (3.3-5.1); Sodium 141 mmol/L (135-145); Total Protein 6.7 g/dL (6.5-8.0)
[2024-05-16 23:55] LABS: Appearance Urine Clear; Color Urine Dark Yellow; Glucose Urine UA Negative (Negative); Leukocyte Esterase Urine Negative (Negative); Nitrite Urine Negative (Negative); Specific Gravity - Urine 1.025 (1.005-1.025); UMIC TRIGGER UACC YES; Urine Blood Negative (Negative); Urine Ketones 80 mg/dL (Negative); Urine Protein 30 (1+) mg/dL (Neg-Trace)
[2024-05-17 00:08] LABS: Bacteria Urine None Seen (None Seen); Hyaline Casts Urine 0-2 /LPF (0-2); RBC Urine 0-2 /HPF (0-2); Squamous Epithelial Cell Urine 0-2 /HPF (0-2); WBC Urine 0-5 /HPF (0-5)
[2024-05-17 00:20] VITALS: BP 144/75; PULSE 85; RESP 17; TEMP 36.9; O2SAT 97
--- NOTE | 2024-05-17 00:51 | ED.NAVMDI ---
HPI - Nausea/Vomiting/Diarrhea General Chief complaint: Nausea/Vomiting/Diarrhea Stated complaint: vomiting,diarrhea, dehydrated Time Seen by Provider: 05/17/24 00:40 Source: patient, family and old records reviewed Mode of arrival: ambulatory Limitations: no limitations History of Present Illness ED Provider: NAOMIE COLLAZO Narrative: 73 yo female with PMH of lupus, HTN, DM, migraines, fibromyalgia, GERD, asthma was just admitted here 05/13 for dehydration, diarrhea, hypoglycemia found to have EPEC. She notes yesterday she didn't have much of an appetite was discharged in the afternoon was eating jelly beans to keep her sugar up. She notes tonight around 5pm she had significant vomiting and diarrhea from both ends. She has no nausea meds at home took dramamine with little relief. She took immodium but still had some stool. She feels weak and tired. PCP told her to return MD elicited complaint: nausea, vomiting and diarrhea Pertinent past history: other (EPEC) Onset (ago): hour(s) (5pm) Description of vomiting: watery Description of diarrhea: watery Associated nausea: Yes Associated abdominal pain: No Severity: severe Exacerbating factors: eating Relieving factors: none Context: other (recent dx of EPEC) Associated symptoms: loss of appetite, malaise, nausea/vomiting and weakness Treatment prior to arrival: immodium Related Data Home Medications ?Medication ?Instructions ?Recorded ?Confirmed albuterol sulfate 90 mcg/actuation 2 puff inhalation Q6H PRN 06/07/23 05/13/24 aerosol inhaler Shortness Of Breath aspirin 81 mg capsule 81 mg PO BEDTIME 06/07/23 05/13/24 carisoprodol 350 mg tablet 350 mg PO BID 06/07/23 05/13/24 carvedilol 6.25 mg tablet 6.25 mg PO BID 06/07/23 05/13/24 ezetimibe 10 mg tablet 10 mg PO DAILY 06/07/23 05/13/24 ferrous sulfate 325 mg (65 mg 325 mg PO DAILY PRN Iron Levels 06/07/23 05/13/24 iron) tablet (iron) furosemide 20 mg tablet 20 mg PO DAILY 06/07/23 05/13/24 inclisiran 284 mg/1.5 mL 284 mg subcut [id number] 06/07/23 05/13/24 subcutaneous syringe (Leqvio) melatonin 5 mg capsule 5 mg PO BEDTIME 06/07/23 05/13/24 mometasone 200 mcg/actuation HFA 2 puff inhalation BID 06/07/23 05/13/24 aerosol inhaler (Asmanex HFA) montelukast 10 mg tablet 10 mg PO DAILY 06/07/23 05/13/24 olmesartan 20 mg tablet 20 mg PO DAILY 06/07/23 05/13/24 omeprazole 20 mg capsule,delayed 20 mg PO BID 06/07/23 05/13/24 release cyclosporine 0.05 % eye drops in a 1 drp ophthalmic (eye) BID 05/13/24 05/13/24 dropperette (Restasis) ibuprofen 200 mg tablet (Motrin IB) 400 mg PO BID 05/13/24 05/13/24 propranolol 10 mg tablet 10 mg PO TID PRN anxiety 05/13/24 05/13/24 Previous Rx's ?Medication ?Instructions ?Recorded ondansetron 4 mg disintegrating 4 mg PO Q8H PRN nausea and 05/17/24 tablet vomiting #20 tabs Allergies Allergy/AdvReac Type Severity Reaction Status Date / Time acetaminophen [From TYLENOL] Allergy Intermediate ITCHING Verified 05/16/24 22:49 epinephrine [EPINEPHRINE] Allergy Intermediate TACHYCARDIA Verified 05/16/24 22:49 iodine [IODINE] Allergy Intermediate RASH Verified 05/16/24 22:49 Penicillins [PENICILLINS] Allergy Intermediate ITCHING/HIV Verified 05/16/24 22:49 ES Sulfa (Sulfonamide Allergy Intermediate NAUSEA Verified 05/16/24 22:49 Antibiotics) [SULFA (SULFONAMIDE ANTIBIOTICS)] egg [EGG] Allergy Mild SENSITIVITY Verified 05/16/24 22:49 diclofenac [DICLOFENAC] Allergy Unknown HIVES Verified 05/16/24 22:49 levofloxacin [From LEVAQUIN] Allergy Unknown SEVERE Verified 05/16/24 22:49 ITCHING meperidine [Demerol] Allergy Unknown Rash Verified 05/16/24 22:49 penicillin V Allergy Unknown Rash Verified 05/16/24 22:49 procaine [From NOVOCAIN] Allergy Unknown UNKNOWN Verified 05/16/24 22:49 doxycycline AdvReac Stomach Verified 05/16/24 22:49 Upset SHELLFISH Allergy Severe ANAPHYLAXIS Uncoded 05/16/24 22:49 eggs Allergy Unknown Rash Uncoded 05/16/24 22:49 Novocain Allergy Unknown Rash Uncoded 05/16/24 22:49 From DEMEROL AdvReac Intermediate HYPOTENSION Uncoded 05/16/24 22:49 Review of Systems Review of Systems: Constitutional : No Weight loss, No Fever, No Chills ENT/Mouth : No sore throat, No Rhinorrhea Eyes: No Swelling, No Redness Cardiovascular : No Chest Pain, No SOB, NoEdema Respiratory : No Cough, No Sputum, No Wheezing Gastrointestinal : Positive Nausea, Positive Vomiting, positive Diarrhea, no abdominal Pain, No Hematochezia, No Melena Genitourinary : No Dysuria, No Urinary Frequency, No Hematuria, No Urgency Musculoskeletal : No joint pain, No Myalgias, No Joint Swelling Skin : No Skin Lesions, No rash Neuro : pos Weakness, No Numbness, No Dizziness, No Headache Psych : No Anxiety/Panic, No Depression All other systems reviewed and are negative. Gastrointestinal: Gastrointestinal: Reports nausea PMFSH Past Medical History Attestation statement: The following information was validated with the patient. Source: old records reviewed Medical History Mitral valve prolapse Lupus GERD (gastroesophageal reflux disease) COVID-19 long hauler Hypoglycemia Asthma Hypertension Hyperlipidemia Fibromyalgia Social History Social History Household Members: Spouse Housing: House Do you presently have visiting nurse or other home services: No Alcohol intake: never Comment: pt. refusing bed alarm . Patient Tobacco Use Status: Never used Tobacco e-Cigarette/Vaping Use: Never Used Second Hand Smoke Exposure: No Advance Directives: Yes Advance Directives on File: Yes Advance Directives Date on File: 06/08/23 service: No Physical Exam Vital Signs: Vital Signs: Last Vital Signs Temp 98.4 F 05/17/24 00:20 Pulse 85 05/17/24 00:20 Resp 17 05/17/24 00:20 BP 144/75 H 05/17/24 00:20 Pulse Ox 97 05/17/24 00:20 O2 Del Method Room Air 05/17/24 00:20 BMI result Body Mass Index 21.4 Appearance: Alert. Oriented X3. No acute distress. Eyes: Pupils equal, round and reactive to light. ENT: Pharynx normal. Neck: Normal inspection. Neck supple. CVS: Normal heart rate and rhythm. Pulses normal. Respiratory: No respiratory distress. Breath sounds normal. Abdomen: Soft and nontender. Skin: Skin warm and dry. Normal skin color. Normal skin turgor. Extremities: No lower extremity edema. No calf ttp Neuro: Oriented X 3. No motor deficit. No sensory deficit. Medical Decision Making Medical Decision Making [facility] Narrative: 73 yo female with PMH of lupus, HTN, DM, migraines, fibromyalgia, GERD, asthma here with recurrent n/v/d in setting of EPEC at this time repeat labs, IV zofran. She has benign abdominal exam. Will reassess once we try supportive medications. May be able to go home with zofran. Differential Diagnosis Differential Diagnoses: The differential diagnosis associated with the presentation includes EPEC, dehydration, vomiting Admission/Observation Consideration of admission/observation: Escalation of care including admission/observation considered if she passes PO challenge can DC home - signed out to Dr. Snyder Lab Data [facility] Lab Attestation statement: I reviewed the patient's lab results. 05/16/24 23:29 05/16/24 23:29 Labs: Lab Results 05/16/24 05/16/24 Range/Units 23:29 23:38 WBC 7.5 (4.8-10.8) X10*3/uL RBC 4.60 (4.20-5.50) X10*6/uL Hgb 12.8 (12.0-16.0) g/dl Hct 38.3 (37.0-47.0) % MCV 83.3 (80.0-98.0) fL MCH 27.8 (27.0-33.0) pg MCHC 33.4 (31.0-35.0) g/dl RDW 13.2 (11.0-16.0) % Plt Count 183 (160-400) X10*3/uL MPV 10.1 (9.4-12.3) fL Immature Gran % (Auto) 0.3 (0.0-0.4) % Neut % (Auto) 73.7 H (45-73) % Lymph % (Auto) 17.8 L (20-40) % [place] % (Auto) 6.0 (2-11) % Eos % (Auto) 1.7 (0-4) % Baso % (Auto) 0.5 (0-2) % Lymph # (Auto) 1.3 (1.2-4.9) X10*3/uL [place] # (Auto) 0.5 (0.1-1.2) X10*3/uL Eos # (Auto) 0.1 (0.0-0.4) X10*3/uL Baso # (Auto) 0.0 (0.0-0.2) X10*3/uL Abs Immat Gran (auto) 0.02 (0.00-0.03) X10*3/uL Absolute Neuts (auto) 5.5 (2.0-8.3) x10*3/uL Absolute Nucleated RBC 0.000 (0.0-0.012) X10*3/uL Nucleated RBC % (auto) 0.0 (0.0-0.2) /100WBC Sodium 141 (135-145) mmol/L Potassium 3.4 (3.3-5.1) mmol/L Chloride 107 (96-108) mmol/L Carbon Dioxide 22 (22-29) mmol/L Anion Gap 15 (12-20) BUN 13 (9-16) mg/dL Creatinine 0.64 (0.5-1.4) mg/dL Estim Creat Clear Calc 62.8 Estimated GFR > 60 Random Glucose 102 (60-115) mg/dL Calcium 9.4 (8.4-10.2) mg/dL Total Bilirubin 0.5 (0.0-1.0) mg/dL AST 44 H (5-31) U/L ALT 39 H (0-31) U/L Alkaline Phosphatase 83 (39-117) U/L Total Protein 6.7 (6.5-8.0) g/dL Albumin 4.1 (3.5-5.0) g/dL Urine Color Dark Yellow Urine Appearance Clear Urine pH 6.0 (5.0-9.0) Ur Specific [place] 1.025 (1.005-1.025) Urine Protein 30 (1+) H (Neg-Trace) mg/dL Urine Glucose (UA) Negative (Negative) mg/dL Urine Ketones 80 (Negative) mg/dL Urine Blood Negative (Negative) Urine Nitrite Negative (Negative) Ur Leukocyte Esterase Negative (Negative) Urine RBC 0-2 (0-2) /HPF Urine WBC 0-5 (0-5) /HPF Ur Squamous Epith Cells 0-2 (0-2) /HPF Urine Bacteria None Seen (None Seen) Hyaline Casts 0-2 (0-2) /LPF Independent Historian Clinical information obtained from an independent historian. History obtained from or confirmed by: Other (family) External Record Review External record reviewed: Inpatient record Prescription Management I considered prescription management with: Other (zofran) Discharge Plan Discharge Clinical Impression: Nausea & vomiting Qualifiers: Vomiting type: unspecified Qualified Code(s): R11.2 - Nausea with vomiting, unspecified Diarrhea Qualifiers: Diarrhea type: infectious Qualified Code(s): A09 - Infectious gastroenteritis and colitis, unspecified Patient Disposition: Still a Patient Instructions: Acute Nausea and Vomiting (ED), Acute Diarrhea (ED) Additional Instructions: very slowly advance diet with liquids, small frequent meals, slowly incorporate dairy return for worsening symptoms, fevers, bleeding, unable to eat or drink take zofran every 8 hours for nausea Prescriptions: New ondansetron 4 mg tablet,disintegrating 4 mg PO Q8H PRN (Reason: nausea and vomiting) Qty: 20 1RF No Action carisoprodol 350 mg tablet 350 mg PO BID carvedilol 6.25 mg tablet 6.25 mg PO BID ferrous sulfate [iron] 325 mg (65 mg iron) Tablet 325 mg PO DAILY PRN (Reason: Iron Levels) omeprazole 20 mg capsule,delayed release(DR/EC) 20 mg PO BID montelukast 10 mg tablet 10 mg PO DAILY furosemide 20 mg tablet 20 mg PO DAILY albuterol sulfate 90 mcg/actuation Hfa Aerosol Inhaler 2 puff INHALATION Q6H PRN (Reason: Shortness Of Breath) olmesartan 20 mg tablet 20 mg PO DAILY ezetimibe 10 mg tablet 10 mg PO DAILY melatonin 5 mg Capsule 5 mg PO BEDTIME Asmanex HFA 200 mcg/actuation HFA aerosol inhaler 2 puff INHALATION BID aspirin 81 mg Capsule 81 mg PO BEDTIME Leqvio 284 mg/1.5 mL syringe 284 mg subcut [id number] propranolol 10 mg tablet 10 mg PO TID PRN (Reason: anxiety) cyclosporine [Restasis] 0.05 % dropperette 1 drp ophthalmic (eye) BID ibuprofen [Motrin IB] 200 mg Tablet 400 mg PO BID Print Language: Ivorian
[2024-05-17] MEDS: ondansetron HCL 4 MG/2 ML VIAL IVPUSH (01:30)
[2024-05-17] MEDS: Lactated Ringers 1,000 ML 999 ML IV (01:30)
[2024-05-17] MEDS: Ondansetron ODT 4 MG TAB.RAPDIS TRANSLINGU (02:39)
[2024-05-17 03:37] VITALS: BP 136/79; PULSE 89; RESP 16; TEMP 36.8; O2SAT 96
[2024-05-17 03:43] VITALS: BP 136/79; PULSE 89; RESP 16; TEMP 36.8
== END 2024-05-17 03:48 | disposition home or self-care (01) ==
PROVIDERS: Emergency Provider Emergency Medicine; PCP Family Medicine
DX: A09 Infectious gastroenteritis and colitis, unspecified (principal); R11.2 Nausea with vomiting, unspecified; E86.0 Dehydration; R53.81 Other malaise; Z79.899 Other long term (current) drug therapy
CPT/HCPCS: 36415; 80053; 81001; 85025; 96361; 96374; 99284; J2405; J7120

== ENCOUNTER 2024-05-21 12:17 | Inpatient (IN) | payer OTHER, SELFPAY ==
[2024-05-21] VITALS (7 sets, daily range): BP systolic 112–150; BP diastolic 58–75; PULSE 78–86; RESP 13–19; TEMP 36.2–37.1; O2SAT 96–97; BMI 21.0
--- NOTE | 2024-05-21 12:21 | ED_ITS ---
HPI - General Adult General Chief complaint: Nausea/Vomiting/Diarrhea Stated complaint: bp drop, diharea, feeling faint Time Seen by Provider: 05/21/24 12:32 Source: patient and family Mode of arrival: ambulatory Limitations: no limitations History of Present Illness ED Provider: DR. Tamayo HPI narrative: 74-year-old female with PMH significant for lupus, HTN, HLD, fibromyalgia, asthma, GERD, and migraines presented to the ED today with persistent of nausea, explosive nonbloody watery diarrhea that is has been constant for the last few days with no stopping, decreased p.o. intake patient can not keep up replacing oral fluid with decreased appetite, has been taking Imodium at home to control her symptoms with no relief. Feels generalized weakness, dizzy and weakness. No fever, chills. Patient reported change of taste which is the reason of her anorexia. Patient was started on doxycycline for dental infection prior to the diarrhea started. Patient had recent hospitalization for dehydration Related Data Home Medications ?Medication ?Instructions ?Recorded ?Confirmed albuterol sulfate 90 mcg/actuation 2 puff inhalation Q6H PRN 06/07/23 05/13/24 aerosol inhaler Shortness Of Breath aspirin 81 mg capsule 81 mg PO BEDTIME 06/07/23 05/13/24 carisoprodol 350 mg tablet 350 mg PO BID 06/07/23 05/13/24 carvedilol 6.25 mg tablet 6.25 mg PO BID 06/07/23 05/13/24 ezetimibe 10 mg tablet 10 mg PO DAILY 06/07/23 05/13/24 ferrous sulfate 325 mg (65 mg 325 mg PO DAILY PRN Iron Levels 06/07/23 05/13/24 iron) tablet (iron) furosemide 20 mg tablet 20 mg PO DAILY 06/07/23 05/13/24 inclisiran 284 mg/1.5 mL 284 mg subcut [id number] 06/07/23 05/13/24 subcutaneous syringe (Leqvio) melatonin 5 mg capsule 5 mg PO BEDTIME 06/07/23 05/13/24 mometasone 200 mcg/actuation HFA 2 puff inhalation BID 06/07/23 05/13/24 aerosol inhaler (Asmanex HFA) montelukast 10 mg tablet 10 mg PO DAILY 06/07/23 05/13/24 olmesartan 20 mg tablet 20 mg PO DAILY 06/07/23 05/13/24 omeprazole 20 mg capsule,delayed 20 mg PO BID 06/07/23 05/13/24 release cyclosporine 0.05 % eye drops in a 1 drp ophthalmic (eye) BID 05/13/24 05/13/24 dropperette (Restasis) ibuprofen 200 mg tablet (Motrin IB) 400 mg PO BID 05/13/24 05/13/24 propranolol 10 mg tablet 10 mg PO TID PRN anxiety 05/13/24 05/13/24 Previous Rx's ?Medication ?Instructions ?Recorded ondansetron 4 mg disintegrating 4 mg PO Q8H PRN nausea and 05/17/24 tablet vomiting #20 tabs Allergies Allergy/AdvReac Type Severity Reaction Status Date / Time acetaminophen [From TYLENOL] Allergy Intermediate ITCHING Verified 05/21/24 12:23 epinephrine [EPINEPHRINE] Allergy Intermediate TACHYCARDIA Verified 05/21/24 12:23 iodine [IODINE] Allergy Intermediate RASH Verified 05/21/24 12:23 Penicillins [PENICILLINS] Allergy Intermediate ITCHING/HIV Verified 05/21/24 12:23 ES Sulfa (Sulfonamide Allergy Intermediate NAUSEA Verified 05/21/24 12:23 Antibiotics) [SULFA (SULFONAMIDE ANTIBIOTICS)] egg [EGG] Allergy Mild SENSITIVITY Verified 05/21/24 12:23 diclofenac [DICLOFENAC] Allergy Unknown HIVES Verified 05/21/24 12:23 levofloxacin [From LEVAQUIN] Allergy Unknown SEVERE Verified 05/21/24 12:23 ITCHING meperidine [Demerol] Allergy Unknown Rash Verified 05/21/24 12:23 penicillin V Allergy Unknown Rash Verified 05/21/24 12:23 procaine [From NOVOCAIN] Allergy Unknown UNKNOWN Verified 05/21/24 12:23 doxycycline AdvReac Stomach Verified 05/21/24 12:23 Upset SHELLFISH Allergy Severe ANAPHYLAXIS Uncoded 05/16/24 22:49 eggs Allergy Unknown Rash Uncoded 05/16/24 22:49 Novocain Allergy Unknown Rash Uncoded 05/16/24 22:49 From DEMEROL AdvReac Intermediate HYPOTENSION Uncoded 05/16/24 22:49 Review of Systems 2 Review of Systems: All other systems are reviewed and are negative Constitutional: Reports as per HPI and Reports no additional constitutional complaints Eyes: Reports as per HPI and Reports no additional eye complaints Reports system reviewed and no additional complaints, except as documented Cardiovascular: Reports as per HPI and Reports no additional cardiovascular complaints Respiratory: Reports as per HPI and Reports no additional respiratory complaints Gastrointestinal: Reports as per HPI and Reports no additional gastrointestinal complaints Genitourinary: Reports no additional female genitourinary complaints Musculoskeletal: Reports no additional musculoskeletal complaints Skin/Breast: Reports system reviewed and no additional complaints, except as docu Psychiatric: Reports no additional psychiatric complaints Endocrine: Reports no additional endocrine complaints Hematologic/Lymphatic: Reports no additional hematologic/lymphatic complaints Allergic/Immunologic: Reports no additional allergic/immunologic complaints Reports system reviewed and no additional complaints, except as documented and Reports Abnormal speech present [facility] Past Medical History Medical History (Updated 05/21/24 @ 15:15 by Pallavi Tamayo MD) Hypertension Mitral valve prolapse Lupus GERD (gastroesophageal reflux disease) COVID-19 long hauler Hypoglycemia Asthma Hyperlipidemia Fibromyalgia Social History Social History Household Members: Spouse Housing: House Do you presently have visiting nurse or other home services: No Alcohol intake: never Comment: pt. refusing bed alarm . Patient Tobacco Use Status: Never used Tobacco e-Cigarette/Vaping Use: Never Used Second Hand Smoke Exposure: No Advance Directives: No Advance Directives Information Provided: No Advance Directives Date on File: 06/08/23 Do you have a plan to hurt others: No Plan service: No Physical Exam ED Vital Signs: Vital Signs - 24 hr 05/21/24 12:22 05/21/24 13:04 05/21/24 13:05 Temperature 98.2 F Pulse Rate 81 79 80 Respiratory Rate 16 Blood Pressure 115/61 116/67 127/72 Pulse Oximetry 97 Oxygen Delivery Method Room Air 05/21/24 13:07 05/21/24 13:10 Temperature 98.3 F Pulse Rate 86 86 Respiratory Rate 13 Blood Pressure 118/66 118/66 Pulse Oximetry 97 Oxygen Delivery Method Room Air BMI result Body Mass Index 21.0 Vital signs have been reviewed and appear to be correct. Blood pressure elevated. Heart rate normal. Respiratory rate normal. Temperature normal. Oxygen saturation normal. Appearance: Alert. Oriented X3. No acute distress. Head: Normal external exam. Normocephalic. Atraumatic. No Fuentes signs noted. No raccoon eyes noted Eyes: PERRLA. EOMI. Conjunctiva and sclera normal. Eyelids normal. ENT: TM's Normal. Pharynx normal. Uvula midline. dry membranes. No trismus noted. No drooling noted. No muffled voice noted. Neck: Normal inspection. Neck supple. FROM. No adenopathy. Thyroid Normal. No meningeal signs. No neck mass noted. CVS: Normal heart rate and rhythm. Heart sound normal. No murmurs noted. Pulses normal throughout. Respiratory: No respiratory distress. Painless inspiration. Breath sounds normal. No wheezes/rales/rhonchi noted. Chest nontender. No accessory muscle usage noted or decreased air movement noted. Abdomen: Soft and nontender. Bowel sounds normal in all 4 quadrants. No distention noted. No organomegaly noted. No visible injury noted. Back: No CVA tenderness. Full range of motion noted. Skin: Skin warm and dry. Normal skin color. Normal skin turgor. No rashes/lesions/lacerations noted. Extremities: No lower extremity edema. Extremities exhibit normal range of motion. Extremities nontender. Neuro: Oriented X 3. Cranial nerve exam: II-XII are grossly intact No motor deficit. No sensory deficit. Reflexes normal. Course Course Course Narrative: RME performed by Jessica Tomas PA-C. Patient is a 73 year old assigned female at presenting to the emergency department with diarrhea. Patient states she has been having a lot of diarrhea. She attempted to take immodium but it didn't help. Detailed physical exam and review of systems are deferred to the project coach. Labs and swabs ordered. Patient placed back in the waiting room pending room availability and results. Reevaluation(s) Reevaluation #1: Presumptive C diff start on vancomycin, clinically dehydrated will admit for IV hydration. Time: 15:14 Medications Administered Discontinued Medications Generic Name Dose Route Start Last Admin Trade Name Freq PRN Reason Stop Dose Admin Sodium Chloride 1,000 mls @ 999 mls/hr 05/21/24 13:11 05/21/24 14:22 Ns IV 05/21/24 14:11 999 mls/hr .Q1H1M ONE Administration Vancomycin HCl 125 mg 05/21/24 13:05 05/21/24 14:22 Vancomycin Hcl 125 Mg Capsule PO 05/21/24 13:06 125 mg ONCE ONE Administration Medical Decision Making Differential Diagnosis Differential Diagnoses: The differential diagnosis associated with the presentation includes (Dehydration, electrolyte derangement, severe anemia, colitis, C diff) Admission/Observation Consideration of admission/observation: Escalation of care including admission/observation considered Consult Healthcare Provider Management of the patient was discussed with: Hospitalist (Dr. Stewart) Lab Data MDM Lab Attestation statement: I reviewed the patient's lab results. 05/21/24 12:38 05/21/24 12:38 Labs: Lab Results 05/21/24 Range/Units 12:38 WBC 5.1 (4.8-10.8) X10*3/uL RBC 4.94 (4.20-5.50) X10*6/uL Hgb 13.5 (12.0-16.0) g/dl Hct 42.2 (37.0-47.0) % MCV 85.4 (80.0-98.0) fL MCH 27.3 (27.0-33.0) pg MCHC 32.0 (31.0-35.0) g/dl RDW 13.2 (11.0-16.0) % Plt Count 237 D (160-400) X10*3/uL MPV 10.5 (9.4-12.3) fL Immature Gran % (Auto) 0.4 (0.0-0.4) % Neut % (Auto) 64.4 (45-73) % Lymph % (Auto) 20.9 (20-40) % [place] % (Auto) 10.2 (2-11) % Eos % (Auto) 3.5 (0-4) % Baso % (Auto) 0.6 (0-2) % Lymph # (Auto) 1.1 L (1.2-4.9) X10*3/uL [place] # (Auto) 0.5 (0.1-1.2) X10*3/uL Eos # (Auto) 0.2 (0.0-0.4) X10*3/uL Baso # (Auto) 0.0 (0.0-0.2) X10*3/uL Abs Immat Gran (auto) 0.02 (0.00-0.03) X10*3/uL Absolute Neuts (auto) 3.3 (2.0-8.3) x10*3/uL Absolute Nucleated RBC 0.000 (0.0-0.012) X10*3/uL Nucleated RBC % (auto) 0.0 (0.0-0.2) /100WBC Sodium 141 (135-145) mmol/L Potassium 3.3 (3.3-5.1) mmol/L Chloride 105 (96-108) mmol/L Carbon Dioxide 22 (22-29) mmol/L Anion Gap 17 (12-20) BUN 11 (9-16) mg/dL Creatinine 0.80 (0.5-1.4) mg/dL Estim Creat Clear Calc 50.2 Estimated GFR > 60 Random Glucose 98 (60-115) mg/dL Calcium 9.9 (8.4-10.2) mg/dL Magnesium 1.9 (1.6-2.6) mg/dL Total Bilirubin 0.4 (0.0-1.0) mg/dL AST 51 H (5-31) U/L ALT 50 H (0-31) U/L Alkaline Phosphatase 90 (39-117) U/L Total Protein 7.2 (6.5-8.0) g/dL Albumin 4.2 (3.5-5.0) g/dL Influenza Type A (PCR) NEGATIVE (Negative) Influenza Type B (PCR) NEGATIVE (Negative) RSV RNA Qual (PCR) NEGATIVE (Negative) SARS-CoV-2 RNA (RT-PCR) NEGATIVE (Negative) Discharge Plan Discharge Clinical Impression: Dehydration, Intractable diarrhea Patient Disposition: Admitted As Inpatient Print Language: German
[2024-05-21 12:43] LABS: MANUAL DIFF FLAG NO
[2024-05-21 12:49] LABS: Basophils Percent Auto 0.6 % (0-2); Eosinophils Absolute Auto 0.2 X10*3/uL (0.0-0.4); Eosinophils Percent Auto 3.5 % (0-4); Hematocrit 42.2 % (37.0-47.0); Hemoglobin 13.5 g/dl (12.0-16.0); Imm Gran Abs Auto 0.02 X10*3/uL (0.00-0.03); Imm Gran Pct Auto 0.4 % (0.0-0.4); Lymphocytes Absolute Auto 1.1 X10*3/uL (1.2-4.9); Lymphocytes Percent Auto 20.9 % (20-40); Mean Corpuscular Hemoglobin 27.3 pg (27.0-33.0); Mean Corpuscular Volume 85.4 fL (80.0-98.0); Mean Platelet Volume 10.5 fL (9.4-12.3); Monocytes Absolute Auto 0.5 X10*3/uL (0.1-1.2); Monocytes Percent Auto 10.2 % (2-11); Neutrophils Absolute Auto 3.3 x10*3/uL (2.0-8.3); Neutrophils Percent Auto 64.4 % (45-73); Platelet Count 237 X10*3/uL (160-400); Red Blood Count 4.94 X10*6/uL (4.20-5.50); Red Cell Distribution Width 13.2 % (11.0-16.0); White Blood Count 5.1 X10*3/uL (4.8-10.8)
[2024-05-21 12:57] LABS: Alanine Aminotransferase 50 U/L (0-31); Albumin Level 4.2 g/dL (3.5-5.0); Alkaline Phosphatase 90 U/L (39-117); Anion Gap 17 (12-20); Aspartate Amino Transferase 51 U/L (5-31); Bilirubin Total 0.4 mg/dL (0.0-1.0); Blood Urea Nitrogen 11 mg/dL (9-16); Calcium 9.9 mg/dL (8.4-10.2); Carbon Dioxide 22 mmol/L (22-29); Chloride 105 mmol/L (96-108); Creatinine Clr Calc Pharmacy 50.2; Estimated Glomerular Filt Rate > 60; Glucose Random 98 mg/dL (60-115); Magnesium 1.9 mg/dL (1.6-2.6); Potassium 3.3 mmol/L (3.3-5.1); Sodium 141 mmol/L (135-145); Total Protein 7.2 g/dL (6.5-8.0)
[2024-05-21 13:42] LABS: Influenza A PCR NEGATIVE (Negative); Influenza B PCR NEGATIVE (Negative); Resp Syncy Virus RNA Qual PCR NEGATIVE (Negative); SARS COV2 PCR INHOUSE NEGATIVE (Negative)
[2024-05-21] MEDS: 0.9 % Sodium Chloride 1,000 ML 999 ML IV (14:22)
[2024-05-21] MEDS: vancomycin HCL 125 MG CAPSULE PO ×3 (14:22→22:03)
--- NOTE | 2024-05-21 14:24 | PC.NURSE ---
Medicated per MAR.
--- NOTE | 2024-05-21 15:06 | PM.IMHP ---
History of Present Illness Date of Service: 05/21/24 Chief Complaint: Persistent diarrhea 73-year-old female recently admitted with EPEC diarrhea and discharge 05/15/2024 presents with persistent diarrhea failing outpatient therapies. Patient was seen in ER 05/17 and discharged home. Patient continued have diarrhea and now presents with weakness and profuse diarrhea in the absence of fever and chills Review of Systems Review of Systems: Denies chest pain Denies shortness of breath Denies fever chills Admits nausea no vomiting admits diarrhea [facility] Medical History (Updated 05/21/24 @ 15:11 by Hank Stewart DO) Hypertension Mitral valve prolapse Lupus GERD (gastroesophageal reflux disease) COVID-19 long hauler Hypoglycemia Asthma Hyperlipidemia Fibromyalgia Social History Household Members: Spouse Housing: House Do you presently have visiting nurse or other home services: No Alcohol intake: never Comment: pt. refusing bed alarm . Patient Tobacco Use Status: Never used Tobacco e-Cigarette/Vaping Use: Never Used Second Hand Smoke Exposure: No Advance Directives: No Advance Directives Information Provided: No Advance Directives Date on File: 06/08/23 Do you have a plan to hurt others: No Plan service: No Meds Allergies Allergy/AdvReac Type Severity Reaction Status Date / Time acetaminophen [From TYLENOL] Allergy Intermediate ITCHING Verified 05/21/24 12:23 epinephrine [EPINEPHRINE] Allergy Intermediate TACHYCARDIA Verified 05/21/24 12:23 iodine [IODINE] Allergy Intermediate RASH Verified 05/21/24 12:23 Penicillins [PENICILLINS] Allergy Intermediate ITCHING/HIV Verified 05/21/24 12:23 ES Sulfa (Sulfonamide Allergy Intermediate NAUSEA Verified 05/21/24 12:23 Antibiotics) [SULFA (SULFONAMIDE ANTIBIOTICS)] egg [EGG] Allergy Mild SENSITIVITY Verified 05/21/24 12:23 diclofenac [DICLOFENAC] Allergy Unknown HIVES Verified 05/21/24 12:23 levofloxacin [From LEVAQUIN] Allergy Unknown SEVERE Verified 05/21/24 12:23 ITCHING meperidine [Demerol] Allergy Unknown Rash Verified 05/21/24 12:23 penicillin V Allergy Unknown Rash Verified 05/21/24 12:23 procaine [From NOVOCAIN] Allergy Unknown UNKNOWN Verified 05/21/24 12:23 doxycycline AdvReac Stomach Verified 05/21/24 12:23 Upset SHELLFISH Allergy Severe ANAPHYLAXIS Uncoded 05/16/24 22:49 eggs Allergy Unknown Rash Uncoded 05/16/24 22:49 Novocain Allergy Unknown Rash Uncoded 05/16/24 22:49 From DEMEROL AdvReac Intermediate HYPOTENSION Uncoded 05/16/24 22:49 Active Medications: Current Medications Enoxaparin Sodium (Enoxaparin Sodium 40 Mg/0.4 Ml Syringe) 40 mg SUBCUT Q24H KARSTEN Lactated Ringer's (Lr) 1,000 mls @ 100 mls/hr IVCONT .Q10H KARSTEN Melatonin (Melatonin 3 Mg Tablet) 6 mg PO BEDTIME PRN PRN Reason: Insomnia Sodium Chloride (0.9 % Sodium Chloride Flush 3 Ml Syringe) 3 ml IVFLUSH QSHIFT KARSTEN Vancomycin HCl (Vancomycin Hcl 125 Mg Capsule) 125 mg PO QID [facility] Home Medications ?Medication ?Instructions ?Recorded ?Confirmed ?Last Taken ?Type albuterol sulfate 90 mcg/actuation 2 puff inhalation Q6H PRN 06/07/23 05/13/24 Unknown History aerosol inhaler Shortness Of Breath aspirin 81 mg capsule 81 mg PO BEDTIME 06/07/23 05/13/24 05/12/24 12:30 History carisoprodol 350 mg tablet 350 mg PO BID 06/07/23 05/13/24 05/12/24 12:30 History carvedilol 6.25 mg tablet 6.25 mg PO BID 06/07/23 05/13/24 05/12/24 12:30 History ezetimibe 10 mg tablet 10 mg PO DAILY 06/07/23 05/13/24 05/12/24 12:30 History ferrous sulfate 325 mg (65 mg 325 mg PO DAILY PRN Iron Levels 06/07/23 05/13/24 Unknown History iron) tablet (iron) furosemide 20 mg tablet 20 mg PO DAILY 06/07/23 05/13/24 05/12/24 12:30 History inclisiran 284 mg/1.5 mL 284 mg subcut [id number] 06/07/23 05/13/24 6 Months Ago History subcutaneous syringe (Leqvio) ~11/13/23 melatonin 5 mg capsule 5 mg PO BEDTIME 06/07/23 05/13/24 05/12/24 12:30 History mometasone 200 mcg/actuation HFA 2 puff inhalation BID 06/07/23 05/13/24 05/12/24 12:30 History aerosol inhaler (Asmanex HFA) montelukast 10 mg tablet 10 mg PO DAILY 06/07/23 05/13/24 05/12/24 12:30 History olmesartan 20 mg tablet 20 mg PO DAILY 06/07/23 05/13/24 05/12/24 12:30 History omeprazole 20 mg capsule,delayed 20 mg PO BID 06/07/23 05/13/24 05/12/24 12:30 History release cyclosporine 0.05 % eye drops in a 1 drp ophthalmic (eye) BID 05/13/24 05/13/24 05/12/24 12:30 History dropperette (Restasis) ibuprofen 200 mg tablet (Motrin IB) 400 mg PO BID 05/13/24 05/13/24 05/12/24 12:30 History propranolol 10 mg tablet 10 mg PO TID PRN anxiety 05/13/24 05/13/24 Unknown History Physical Exam Vital Signs and Narrative: Vital Signs: Last Vital Signs Temp 98.3 F 05/21/24 13:10 Pulse 86 05/21/24 13:10 Resp 13 05/21/24 13:10 BP 118/66 05/21/24 13:10 Pulse Ox 97 05/21/24 13:10 O2 Del Method Room Air 05/21/24 13:10 BMI result Body Mass Index 21.0 Const: Other: Awake alert no acute distress HEENT: Other: Membranes moist Resp: Other: Clear to auscultation bilaterally no rales rhonchi or wheezes Cardio: Other: No S4; positive S1-S2; no S3 murmurs rubs or gallops GI: Other: Soft hyperactive bowel sounds. Nontender throughout no rebound or guarding Neuro: Other: Cranial nerves 2-12 grossly intact as tested. Motor is 5/5 all extremities. Sensation is intact. Cognition appropriate Extrem: Other: No edema bilaterally Results Labs 05/21/24 12:38 05/21/24 12:38 Labs: Laboratory Results - last 24 hr 05/21/24 12:38 MCV 85.4 MCH 27.3 MCHC 32.0 RDW 13.2 Plt Count 237 D MPV 10.5 Immature Gran % (Auto) 0.4 Neut % (Auto) 64.4 Lymph % (Auto) 20.9 [place] % (Auto) 10.2 Eos % (Auto) 3.5 Baso % (Auto) 0.6 Lymph # (Auto) 1.1 L [place] # (Auto) 0.5 Eos # (Auto) 0.2 Baso # (Auto) 0.0 Abs Immat Gran (auto) 0.02 Absolute Neuts (auto) 3.3 Absolute Nucleated RBC 0.000 Nucleated RBC % (auto) 0.0 Anion Gap 17 Estim Creat Clear Calc 50.2 Estimated GFR > 60 Random Glucose 98 Calcium 9.9 Magnesium 1.9 Total Bilirubin 0.4 AST 51 H ALT 50 H Alkaline Phosphatase 90 Total Protein 7.2 Albumin 4.2 Influenza Type A (PCR) NEGATIVE Influenza Type B (PCR) NEGATIVE RSV RNA Qual (PCR) NEGATIVE SARS-CoV-2 RNA (RT-PCR) NEGATIVE Assessment and Plan (1) Diarrhea: Qualifiers: Diarrhea type: infectious Qualified Code(s): A09 - Infectious gastroenteritis and colitis, unspecified Status: Acute (2) Hypertension: Qualifiers: Hypertension type: primary hypertension Qualified Code(s): I10 - Essential (primary) hypertension Status: Acute Plan 73-year-old female recently admitted to [facility] for watery diarrhea found to be E coli/EPEC was discharged to home 05/15/2024. This is her 2nd admission to the emergency room for similar complaints. She will be admitted for diarrhea with early dehydration having failed outpatient therapies 1. EPEC diarrhea -given persistent nature of the diarrhea and the high risk for outpatient therapies we will admit and continue volume repletion with lactated Ringer's -start vancomycin 125 q.i.d.. -clear liquid diet 2. Hypertension -acceptable control on current therapies -hold Lasix secondary to #1 -adjust as indicated Full code Lovenox Patient will require at least 2 minutes going forward of inpatient stay for volume repletion and monitoring of electrolytes given outpatient failure. This can not be done in a less acute setting Quality Stroke Does the patient have a stroke diagnosis?: No VTE Prior VTE?: No VTE Risk Level:: Medical - moderate - high VTE Device Contraindication: Treatment Not Indicated VTE Drug Contraindication: N/A - Med Ordered
[2024-05-21] MEDS: Lactated Ringers 1,000 ML 100 ML IVCONT (15:39)
[2024-05-21] MEDS: Enoxaparin Sodium 40 MG/0.4 ML SYRINGE SUBCUT (15:41)
[2024-05-21 15:59] LABS: Appearance Urine Cloudy; Color Urine Dark Yellow; Glucose Urine UA Negative (Negative); Leukocyte Esterase Urine Trace (Negative); Nitrite Urine Negative (Negative); Specific Gravity - Urine >= 1.030 (1.005-1.025); UMIC TRIGGER UACC YES; Urine Blood Negative (Negative); Urine Ketones 15 mg/dL (Negative); Urine Protein 30 (1+) mg/dL (Neg-Trace)
--- NOTE | 2024-05-21 16:21 | PHA.MEDREC ---
Addendum entered by Evi Sherwood RPh 05/21/24 16:55: MED REC REVIEWED BY [facility] Original Note: Pharmacy Consult ? Medication Reconciliation Pharmacy has completed the medication reconciliation. spoke with patient to confirm medications. She reports she is no longer taking baby aspirin, ibuprofen, or iron. She last took ibuprofen about a week and a half ago. She takes carisoprodol 350mg at bedtime and a 1/2 tablet as needed if she wakes up in the middle of the night. She was unsure of the olmesartan dose but she has been taking it once daily, whatever dose she has been most recently filling at the pharmacy, which claims show as 40 mg. She reports she is due for her Leqvio now and is waiting for it to be delivered. Last med rec note on 05/13 reports that the patient said she had it 6 months ago and dosing per UpToDate is every 6 months. Patient does not seem too sure on the frequency but she said she thinks its once a year. I will leave in med rec as what patient is reporting. She confirmed she takes 10mg of melatonin at bedtime. Her Asmanex was last filled in August 2023 but patient says she still takes as 2 puffs once daily. She said she did not take any medications today and took them last night.
[2024-05-21 16:41] LABS: MANUAL DIFF FLAG NO
[2024-05-21 16:42] LABS: Basophils Percent Auto 0.4 % (0-2); Eosinophils Absolute Auto 0.2 X10*3/uL (0.0-0.4); Eosinophils Percent Auto 3.7 % (0-4); Hemoglobin 12.1 g/dl (12.0-16.0); Imm Gran Abs Auto 0.01 X10*3/uL (0.00-0.03); Imm Gran Pct Auto 0.2 % (0.0-0.4); Lymphocytes Absolute Auto 1.2 X10*3/uL (1.2-4.9); Lymphocytes Percent Auto 24.4 % (20-40); Mean Corpuscular HGB Conc 32.7 g/dl (31.0-35.0); Mean Corpuscular Hemoglobin 27.9 pg (27.0-33.0); Mean Corpuscular Volume 85.3 fL (80.0-98.0); Mean Platelet Volume 10.5 fL (9.4-12.3); Monocytes Absolute Auto 0.5 X10*3/uL (0.1-1.2); Monocytes Percent Auto 10.6 % (2-11); Neutrophils Absolute Auto 2.9 x10*3/uL (2.0-8.3); Neutrophils Percent Auto 60.7 % (45-73); Platelet Count 223 X10*3/uL (160-400); Red Blood Count 4.34 X10*6/uL (4.20-5.50); Red Cell Distribution Width 13.1 % (11.0-16.0); White Blood Count 4.8 X10*3/uL (4.8-10.8)
[2024-05-21 17:06] LABS: Alanine Aminotransferase 45 U/L (0-31); Albumin Level 3.6 g/dL (3.5-5.0); Alkaline Phosphatase 77 U/L (39-117); Anion Gap 15 (12-20); Aspartate Amino Transferase 48 U/L (5-31); Bilirubin Total 0.3 mg/dL (0.0-1.0); Blood Urea Nitrogen 11 mg/dL (9-16); Calcium 9.2 mg/dL (8.4-10.2); Carbon Dioxide 20 mmol/L (22-29); Chloride 107 mmol/L (96-108); Creatinine Clr Calc Pharmacy 59.1; Estimated Glomerular Filt Rate > 60; Glucose Fasting 88 mg/dL (60-99); Potassium 3.4 mmol/L (3.3-5.1); Sodium 139 mmol/L (135-145); Total Protein 6.4 g/dL (6.5-8.0)
[2024-05-21 18:10] LABS: Bacteria Urine None Seen (None Seen); Other Crystals Urine Present; WBC Urine 0-5 /HPF (0-5)
--- NOTE | 2024-05-21 21:10 | PC.NURSE ---
C Diff sample sent to lab at this time
[2024-05-21 22:29] LABS: CDiff Gene PCR NEGATIVE (Negative)
[2024-05-22] VITALS (8 sets, daily range): BP systolic 140–160; BP diastolic 67–82; PULSE 72–82; RESP 12–18; TEMP 36–36.9; O2SAT 95–98; BMI 21.1
[2024-05-22] MEDS: Lactated Ringers 1,000 ML 100 ML IVCONT ×2 (01:51→11:41)
[2024-05-22] MEDS: carvediloL 6.25 MG TABLET PO ×3 (03:30→21:17)
[2024-05-22] MEDS: carisoprodoL 350 MG TABLET PO (03:30)
[2024-05-22] MEDS: Montelukast Sodium 10 MG TABLET PO (03:31)
--- NOTE | 2024-05-22 08:49 | MHC.CM.PN ---
Patient lives in a home w/ . Functionally independent. Denies use of DME/services. Reports she has an HCP naming HCA's as 1) Edmundo and 2) daughter Juliane. Copy requested. will bring. PCP Parvez Altamirano DP: Goal is home self care. to transport. CM will continue to follow.
[2024-05-22] MEDS: vancomycin HCL 125 MG CAPSULE PO ×4 (09:01→21:18)
[2024-05-22 09:24] LABS: Adenovirus F 40/41 Not Detected (Not Detect.); Astrovirus Not Detected (Not Detect.); Campylobacter Not Detected (Not Detect.); Cryptosporidium Not Detected (Not Detect.); Cyclospora cayetanensis Not Detected (Not Detect.); E. coli EAEC Not Detected (Not Detect.); E. coli EPEC Not Detected (Not Detect.); E. coli ETEC Not Detected (Not Detect.); E. coli STEC Not Detected (Not Detect.); Entamoeba histolytica Not Detected (Not Detect.); Giardia lamblia Not Detected (Not Detect.); Norovirus GI/GII Not Detected (Not Detect.); Plesiomonas shigelloides Not Detected (Not Detect.); Rotavirus A Not Detected (Not Detect.); Salmonella Not Detected (Not Detect.); Sapovirus Not Detected (Not Detect.); Shigella sp./EIEC Not Detected (Not Detect.); Vibrio Not Detected (Not Detect.); Vibrio Cholerae Not Detected (Not Detect.); Yersinia enterocolitica Not Detected (Not Detect.)
[2024-05-22] MEDS: Valsartan 160 MG TABLET PO (11:39)
[2024-05-22] MEDS: Loperamide HCl 2 MG CAPSULE PO ×2 (11:39→18:30)
[2024-05-22] MEDS: Ezetimibe 10 MG TABLET PO (11:39)
[2024-05-22] MEDS: Omeprazole 20 MG CAPSULE.DR PO ×2 (11:44→16:59)
--- NOTE | 2024-05-22 12:47 | HO.PM.IMPN ---
Subjective Subjective Date of Service: 05/22/24 Interval History: Minimal improvement overnight. Still with copious diarrhea Review of Systems Denies chest pain Denies shortness of breath Denies fever chills Admits nausea no vomiting admits diarrhea Physical Exam Vital Signs: Vital Signs: Last Vital Signs Temp 97.7 F 05/22/24 11:38 Pulse 72 05/22/24 11:38 Resp 16 05/22/24 11:38 BP 146/70 H 05/22/24 11:38 Pulse Ox 95 05/22/24 11:38 O2 Del Method Room Air 05/22/24 11:38 BMI result Body Mass Index 21.1 Const: Other: Awake alert no acute distress HEENT: Other: Membranes moist Resp: Other: Clear to auscultation bilaterally no rales rhonchi or wheezes Cardio: Other: No S4; positive S1-S2; no S3 murmurs rubs or gallops GI: Other: Soft hyperactive bowel sounds. Nontender throughout no rebound or guarding Neuro: Other: Cranial nerves 2-12 grossly intact as tested. Motor is 5/5 all extremities. Sensation is intact. Cognition appropriate Extrem: Other: No edema bilaterally Objective Data Active Medications Albuterol Sulfate (Albuterol Sulfate 90 Mcg 8 Gm Inhaler) 2 puff INHALE Q6H PRN PRN Reason: Shortness Of Breath Carisoprodol (Carisoprodol 350 Mg Tablet) 175 mg PO DAILY PRN PRN Reason: Sleep Carvedilol (Carvedilol 6.25 Mg Tablet) 6.25 mg PO BID [facility]; Protocol Last Admin: 05/22/24 11:38 Dose: 6.25 mg Documented By: AKASH Ezetimibe (Ezetimibe 10 Mg Tablet) 10 mg PO DAILY [facility] Last Admin: 05/22/24 11:39 Dose: 10 mg Documented By: AKASH Enoxaparin Sodium (Enoxaparin Sodium 40 Mg/0.4 Ml Syringe) 40 mg SUBCUT Q24H [facility] Last Admin: 05/21/24 15:41 Dose: 40 mg Documented By: CAESAR Lactated Ringer's (Lr) 1,000 mls @ 100 mls/hr IVCONT .Q10H [facility] Last Admin: 05/22/24 11:41 Dose: 100 mls/hr Documented By: AKASH Loperamide HCl (Loperamide Hcl 2 Mg Capsule) 2 mg PO Q6H PRN PRN Reason: Diarrhea Last Admin: 05/22/24 11:39 Dose: 2 mg Documented By: AKASH Melatonin (Melatonin 3 Mg Tablet) 6 mg PO BEDTIME PRN PRN Reason: Insomnia Montelukast Sodium (Montelukast Sodium 10 Mg Tablet) 10 mg PO DAILY [facility] Last Admin: 05/22/24 11:39 Dose: Not Given Documented By: AKASH Non-Admin Reason: pt states she had at 3am Omeprazole (Omeprazole 20 Mg Capsule.) 20 mg PO BID@0630,1630 [facility] Last Admin: 05/22/24 11:44 Dose: 20 mg Documented By: AKASH Sodium Chloride (0.9 % Sodium Chloride Flush 3 Ml Syringe) 3 ml IVFLUSH QSHIFT [facility] Last Admin: 05/22/24 09:02 Dose: Not Given Documented By: AKASH Non-Admin Reason: iv fluids running Valsartan (Valsartan 160 Mg Tablet) 160 mg PO DAILY [facility] Last Admin: 05/22/24 11:39 Dose: 160 mg Documented By: AKASH Vancomycin HCl (Vancomycin Hcl 125 Mg Capsule) 125 mg PO QID [facility] Last Admin: 05/22/24 09:01 Dose: 125 mg Documented By: AKASH Labs 05/21/24 16:30 05/21/24 16:30 Labs: Laboratory Results - last 24 hr 05/21/24 05/21/24 05/21/24 12:38 15:30 16:30 MCV 85.4 85.3 MCH 27.3 27.9 MCHC 32.0 32.7 RDW 13.2 13.1 Plt Count 237 D 223 MPV 10.5 10.5 Immature Gran % (Auto) 0.4 0.2 Neut % (Auto) 64.4 60.7 Lymph % (Auto) 20.9 24.4 [place] % (Auto) 10.2 10.6 Eos % (Auto) 3.5 3.7 Baso % (Auto) 0.6 0.4 Lymph # (Auto) 1.1 L 1.2 [place] # (Auto) 0.5 0.5 Eos # (Auto) 0.2 0.2 Baso # (Auto) 0.0 0.0 Abs Immat Gran (auto) 0.02 0.01 Absolute Neuts (auto) 3.3 2.9 Absolute Nucleated RBC 0.000 0.000 Nucleated RBC % (auto) 0.0 0.0 Anion Gap 17 15 Estim Creat Clear Calc 50.2 59.1 Estimated GFR > 60 > 60 Random Glucose 98 Fasting Glucose 88 Calcium 9.9 9.2 D Magnesium 1.9 Total Bilirubin 0.4 0.3 AST 51 H 48 H ALT 50 H 45 H Alkaline Phosphatase 90 77 Total Protein 7.2 6.4 L Albumin 4.2 3.6 Urine Color Dark Yellow Urine Appearance Cloudy Urine pH 6.0 Ur Specific [place] >= 1.030 H Urine Protein 30 (1+) H Urine Glucose (UA) Negative Urine Ketones 15 Urine Blood Negative Urine Nitrite Negative Ur Leukocyte Esterase Trace H Urine RBC 3-5 H Urine WBC 0-5 Ur Squamous Epith Cells 11-20 Other Crystals Present Urine Bacteria None Seen Hyaline Casts 11-20 Stl C. cayetanensis PCR Not Detected Stool Rotavirus A PCR Not Detected Stl Adenov F 40/41 PCR Not Detected Stool Astrovirus (PCR) Not Detected Stool Campylobacter PCR Not Detected Stool Cryptosporidium PCR Not Detected Stl Sh Tox Pr E STEC PCR Not Detected Stool E coli O157 PCR Not applicable Stl Enterotoxigenic E PCR Not Detected Stool EPEC (PCR) Not Detected Stool EAEC (PCR) Not Detected Stl E. histolytica PCR Not Detected Stool Giardia Lamblia PCR Not Detected Stl P. shigelloides PCR Not Detected Stool Salmonella PCR Not Detected Stool Sapovirus (PCR) Not Detected Stl Shigella/EIEC PCR Not Detected St Y.enterocolitica PCR Not Detected Stool Vibrio (PCR) Not Detected Stl Vibrio cholerae PCR Not Detected Stl Norovirus GI/GII PCR Not Detected C. difficile Tox B Gene Influenza Type A (PCR) NEGATIVE Influenza Type B (PCR) NEGATIVE RSV RNA Qual (PCR) NEGATIVE SARS-CoV-2 RNA (RT-PCR) NEGATIVE 05/21/24 21:00 MCV MCH MCHC RDW Plt Count MPV Immature Gran % (Auto) Neut % (Auto) Lymph % (Auto) [place] % (Auto) Eos % (Auto) Baso % (Auto) Lymph # (Auto) [place] # (Auto) Eos # (Auto) Baso # (Auto) Abs Immat Gran (auto) Absolute Neuts (auto) Absolute Nucleated RBC Nucleated RBC % (auto) Anion Gap Estim Creat Clear Calc Estimated GFR Random Glucose Fasting Glucose Calcium Magnesium Total Bilirubin AST ALT Alkaline Phosphatase Total Protein Albumin Urine Color Urine Appearance Urine pH Ur Specific [place] Urine Protein Urine Glucose (UA) Urine Ketones Urine Blood Urine Nitrite Ur Leukocyte Esterase Urine RBC Urine WBC Ur Squamous Epith Cells Other Crystals Urine Bacteria Hyaline Casts Stl C. cayetanensis PCR Stool Rotavirus A PCR Stl Adenov F 40/41 PCR Stool Astrovirus (PCR) Stool Campylobacter PCR Stool Cryptosporidium PCR Stl Sh Tox Pr E STEC PCR Stool E coli O157 PCR Stl Enterotoxigenic E PCR Stool EPEC (PCR) Stool EAEC (PCR) Stl E. histolytica PCR Stool Giardia Lamblia PCR Stl P. shigelloides PCR Stool Salmonella PCR Stool Sapovirus (PCR) Stl Shigella/EIEC PCR St Y.enterocolitica PCR Stool Vibrio (PCR) Stl Vibrio cholerae PCR Stl Norovirus GI/GII PCR C. difficile Tox B Gene NEGATIVE Influenza Type A (PCR) Influenza Type B (PCR) RSV RNA Qual (PCR) SARS-CoV-2 RNA (RT-PCR) Assessment and Plan (1) Intractable diarrhea: Status: Acute Plan 73-year-old female recently admitted to [facility] for watery diarrhea found to be E coli/EPEC was discharged to home 05/15/2024. This is her 2nd admission to the emergency room for similar complaints. She will be admitted for diarrhea with early dehydration having failed outpatient therapies 1. EPEC diarrhea -given persistent nature of the diarrhea and the high risk for outpatient therapies we will admit and continue volume repletion with lactated Ringer's -vancomycin 125 q.i.d.. (2) -will add loperamide p.r.n. -clear liquid diet 2. Hypertension -acceptable control on current therapies -hold Lasix secondary to #1 -adjust as indicated Full code Lovenox Patient will require ongoing hospitalization for volume repletion given extensive diarrhea that has failed outpatient therapies Quality Stroke Does the patient have a stroke diagnosis?: No VTE Prior VTE?: No VTE Risk Level:: Medical - moderate - high VTE Device Contraindication: Treatment Not Indicated VTE Drug Contraindication: N/A - Med Ordered
[2024-05-22] MEDS: Enoxaparin Sodium 40 MG/0.4 ML SYRINGE SUBCUT (14:23)
[2024-05-22] MEDS: ondansetron HCL 4 MG/2 ML VIAL IVPUSH (14:23)
[2024-05-22] MEDS: Propranolol HCL 10 MG TABLET PO ×2 (14:23→21:22)
[2024-05-23] VITALS (7 sets, daily range): BP systolic 132–186; BP diastolic 68–90; PULSE 68–80; RESP 12–20; TEMP 36–36.9; O2SAT 95–100
[2024-05-23] MEDS: 0.9 % Sodium Chloride Flush 3 ML SYRINGE IVFLUSH ×2 (00:27→22:54)
[2024-05-23] MEDS: carisoprodoL 350 MG TABLET 175 MG PO (00:28)
[2024-05-23] MEDS: Melatonin 3 MG TABLET 6 MG PO ×2 (00:28→22:52)
[2024-05-23] MEDS: Loperamide HCl 2 MG CAPSULE PO ×2 (00:29→08:58)
[2024-05-23] MEDS: Lactated Ringers 1,000 ML 100 ML IVCONT ×3 (00:29→08:43)
[2024-05-23] MEDS: ondansetron HCL 4 MG/2 ML VIAL IVPUSH ×2 (04:20→19:24)
[2024-05-23 06:26] LABS: MANUAL DIFF FLAG NO
[2024-05-23] MEDS: Omeprazole 20 MG CAPSULE.DR PO ×2 (06:43→14:59)
[2024-05-23 06:53] LABS: Basophils Percent Auto 0.5 % (0-2); Eosinophils Absolute Auto 0.2 X10*3/uL (0.0-0.4); Eosinophils Percent Auto 3.7 % (0-4); Hematocrit 35.7 % (37.0-47.0); Hemoglobin 11.6 g/dl (12.0-16.0); Imm Gran Abs Auto 0.02 X10*3/uL (0.00-0.03); Imm Gran Pct Auto 0.5 % (0.0-0.4); Lymphocytes Absolute Auto 1.3 X10*3/uL (1.2-4.9); Lymphocytes Percent Auto 30.6 % (20-40); Mean Corpuscular HGB Conc 32.5 g/dl (31.0-35.0); Mean Corpuscular Hemoglobin 27.6 pg (27.0-33.0); Mean Platelet Volume 12.2 fL (9.4-12.3); Monocytes Absolute Auto 0.5 X10*3/uL (0.1-1.2); Monocytes Percent Auto 10.9 % (2-11); Neutrophils Absolute Auto 2.3 x10*3/uL (2.0-8.3); Neutrophils Percent Auto 53.8 % (45-73); Platelet Count 164 X10*3/uL (160-400); Red Cell Distribution Width 13.1 % (11.0-16.0); White Blood Count 4.3 X10*3/uL (4.8-10.8)
[2024-05-23 07:18] LABS: Alanine Aminotransferase 44 U/L (0-31); Albumin Level 3.1 g/dL (3.5-5.0); Alkaline Phosphatase 68 U/L (39-117); Anion Gap 11 (12-20); Aspartate Amino Transferase 47 U/L (5-31); Bilirubin Total 0.3 mg/dL (0.0-1.0); Blood Urea Nitrogen 7 mg/dL (9-16); Calcium 8.1 mg/dL (8.4-10.2); Carbon Dioxide 22 mmol/L (22-29); Chloride 109 mmol/L (96-108); Creatinine Clr Calc Pharmacy 75.8; Estimated Glomerular Filt Rate > 60; Glucose Fasting 90 mg/dL (60-99); Potassium 3.2 mmol/L (3.3-5.1); Sodium 139 mmol/L (135-145); Total Protein 5.5 g/dL (6.5-8.0)
[2024-05-23] MEDS: carvediloL 6.25 MG TABLET PO ×2 (08:43→22:51)
[2024-05-23] MEDS: Montelukast Sodium 10 MG TABLET PO (08:43)
[2024-05-23] MEDS: vancomycin HCL 125 MG CAPSULE PO ×4 (08:43→22:53)
[2024-05-23] MEDS: Valsartan 160 MG TABLET PO (08:43)
[2024-05-23] MEDS: Ezetimibe 10 MG TABLET PO (08:43)
[2024-05-23] MEDS: Potassium Chloride/H20 10 MEQ/100 ML PIGGYBACK 100 MEQ IV ×4 (08:58→12:19)
--- NOTE | 2024-05-23 10:33 | P.PNIM_ITS ---
Subjective Subjective Date of Service: 05/23/24 Interval History: Still stooling with same frequency. Nausea improved Review of Systems Denies chest pain Denies shortness of breath Denies fever chills Admits nausea no vomiting admits diarrhea Physical Exam 2 Vital Signs: Vital Signs: Last Vital Signs Temp 97 F 05/23/24 08:00 Pulse 70 05/23/24 08:00 Resp 18 05/23/24 08:00 BP 159/76 H 05/23/24 08:00 Pulse Ox 97 05/23/24 08:00 O2 Del Method Room Air 05/23/24 08:00 BMI result Body Mass Index 21.1 Const: Other: Awake alert no acute distress HEENT: Other: Membranes moist Resp: Other: Clear to auscultation bilaterally no rales rhonchi or wheezes Cardio: Other: No S4; positive S1-S2; no S3 murmurs rubs or gallops GI: Other: Soft hyperactive bowel sounds. Nontender throughout no rebound or guarding Neuro: Other: Cranial nerves 2-12 grossly intact as tested. Motor is 5/5 all extremities. Sensation is intact. Cognition appropriate Extrem: Other: No edema bilaterally Objective Data Active Medications Albuterol Sulfate (Albuterol Sulfate 90 Mcg 8 Gm Inhaler) 2 puff INHALE Q6H PRN PRN Reason: Shortness Of Breath Carisoprodol (Carisoprodol 350 Mg Tablet) 175 mg PO DAILY PRN PRN Reason: Sleep Last Admin: 05/23/24 00:28 Dose: 175 mg Documented By: ALBINO Carvedilol (Carvedilol 6.25 Mg Tablet) 6.25 mg PO BID [facility]; Protocol Last Admin: 05/23/24 08:43 Dose: 6.25 mg Documented By: NISA Ezetimibe (Ezetimibe 10 Mg Tablet) 10 mg PO DAILY [facility] Last Admin: 05/23/24 08:43 Dose: 10 mg Documented By: NISA Enoxaparin Sodium (Enoxaparin Sodium 40 Mg/0.4 Ml Syringe) 40 mg SUBCUT Q24H [facility] Last Admin: 05/22/24 14:23 Dose: 40 mg Documented By: AKASH Lactated Ringer's (Lr) 1,000 mls @ 100 mls/hr IVCONT .Q10H [facility] Last Admin: 05/23/24 08:43 Dose: 100 mls/hr Documented By: NISA Potassium Chloride (Potassium Chloride/H20) 10 meq in 100 mls @ 100 mls/hr IV Q1H [facility] Stop: 05/23/24 12:44 Last Admin: 05/23/24 10:10 Dose: 100 mls/hr Documented By: NISA Loperamide HCl (Loperamide Hcl 2 Mg Capsule) 2 mg PO Q6H PRN PRN Reason: Diarrhea Last Admin: 05/23/24 08:58 Dose: 2 mg Documented By: NISA Melatonin (Melatonin 3 Mg Tablet) 6 mg PO BEDTIME PRN PRN Reason: Insomnia Last Admin: 05/23/24 00:28 Dose: 6 mg Documented By: ALBINO Montelukast Sodium (Montelukast Sodium 10 Mg Tablet) 10 mg PO DAILY [facility] Last Admin: 05/23/24 08:43 Dose: 10 mg Documented By: NISA Omeprazole (Omeprazole 20 Mg Capsule.) 20 mg PO BID@0630,1630 [facility] Last Admin: 05/23/24 06:43 Dose: 20 mg Documented By: ALBINO Ondansetron HCl (Ondansetron Hcl 4 Mg/2 Ml Vial) 4 mg IVPUSH Q6H PRN PRN Reason: Nausea and Vomiting Last Admin: 05/23/24 04:20 Dose: 4 mg Documented By: ALBINO Propranolol HCl (Propranolol Hcl 10 Mg Tablet) 10 mg PO TID PRN; Protocol PRN Reason: anxiety Last Admin: 05/22/24 21:22 Dose: 10 mg Documented By: ALBINO Sodium Chloride (0.9 % Sodium Chloride Flush 3 Ml Syringe) 3 ml IVFLUSH QSHIFT [facility] Last Admin: 05/23/24 07:20 Dose: Not Given Documented By: NISA Non-Admin Reason: Previously Administered Valsartan (Valsartan 160 Mg Tablet) 160 mg PO DAILY [facility] Last Admin: 05/23/24 08:43 Dose: 160 mg Documented By: NISA Vancomycin HCl (Vancomycin Hcl 125 Mg Capsule) 125 mg PO QID [facility] Last Admin: 05/23/24 08:43 Dose: 125 mg Documented By: NISA Labs 05/23/24 05:43 05/23/24 05:43 Labs: Laboratory Results - last 24 hr 05/21/24 05/23/24 15:30 05:43 MCV 85.0 MCH 27.6 MCHC 32.5 RDW 13.1 Plt Count 164 D MPV 12.2 Immature Gran % (Auto) 0.5 H Neut % (Auto) 53.8 Lymph % (Auto) 30.6 [place] % (Auto) 10.9 Eos % (Auto) 3.7 Baso % (Auto) 0.5 Lymph # (Auto) 1.3 [place] # (Auto) 0.5 Eos # (Auto) 0.2 Baso # (Auto) 0.0 Abs Immat Gran (auto) 0.02 Absolute Neuts (auto) 2.3 Absolute Nucleated RBC 0.000 Nucleated RBC % (auto) 0.0 Anion Gap 11 L Estim Creat Clear Calc 75.8 Estimated GFR > 60 Fasting Glucose 90 Calcium 8.1 L D Total Bilirubin 0.3 AST 47 H ALT 44 H Alkaline Phosphatase 68 Total Protein 5.5 L Albumin 3.1 L Stl C. cayetanensis PCR Not Detected Stool Rotavirus A PCR Not Detected Stl Adenov F 40/41 PCR Not Detected Stool Astrovirus (PCR) Not Detected Stool Campylobacter PCR Not Detected Stool Cryptosporidium PCR Not Detected Stl Sh Tox Pr E STEC PCR Not Detected Stool E coli O157 PCR Not applicable Stl Enterotoxigenic E PCR Not Detected Stool EPEC (PCR) Not Detected Stool EAEC (PCR) Not Detected Stl E. histolytica PCR Not Detected Stool Giardia Lamblia PCR Not Detected Stl P. shigelloides PCR Not Detected Stool Salmonella PCR Not Detected Stool Sapovirus (PCR) Not Detected Stl Shigella/EIEC PCR Not Detected St Y.enterocolitica PCR Not Detected Stool Vibrio (PCR) Not Detected Stl Vibrio cholerae PCR Not Detected Stl Norovirus GI/GII PCR Not Detected Assessment and Plan (1) Intractable diarrhea: Status: Acute Plan 73-year-old female recently admitted to [facility] for watery diarrhea found to be E coli/EPEC was discharged to home 05/15/2024. This is her 2nd admission to the emergency room for similar complaints. She will be admitted for diarrhea with early dehydration having failed outpatient therapies 1. EPEC diarrhea -given persistent nature of the diarrhea and the high risk for outpatient therapies we will admit and continue volume repletion with lactated Ringer's -vancomycin 125 q.i.d.. (3) -will add loperamide p.r.n. -advanced diet to regular. . . ?picking? 2. Hypertension -acceptable control on current therapies -hold Lasix secondary to #1 -adjust as indicated Full code Lovenox Patient will require ongoing hospitalization for volume repletion given extensive diarrhea that has failed outpatient therapies Quality Stroke Does the patient have a stroke diagnosis?: No VTE Prior VTE?: No VTE Risk Level:: Medical - moderate - high VTE Device Contraindication: Treatment Not Indicated VTE Drug Contraindication: N/A - Med Ordered
[2024-05-23] MEDS: Albuterol Sulfate 90 MCG 8 GM INHALER 2 PUFF INHALE (11:11)
[2024-05-23] MEDS: Enoxaparin Sodium 40 MG/0.4 ML SYRINGE SUBCUT (14:59)
[2024-05-23] MEDS: Simethicone 80 MG TAB.CHEW PO ×2 (14:59→21:33)
--- NOTE | 2024-05-23 15:53 | MHC.CM.PN ---
per rounds pt may be dcd today
[2024-05-24] VITALS: BP 128/64; PULSE 66; RESP 18; TEMP 36.2; O2SAT 98
[2024-05-24] MEDS: carisoprodoL 350 MG TABLET 175 MG PO (00:09)
[2024-05-24 03:40] VITALS: BP 157/70; PULSE 81; RESP 18; TEMP 36.2; O2SAT 95
[2024-05-24] MEDS: Omeprazole 20 MG CAPSULE.DR PO (06:23)
[2024-05-24 07:50] VITALS: BP 144/76; PULSE 74; RESP 18; TEMP 36.2; O2SAT 96
[2024-05-24] MEDS: Simethicone 80 MG TAB.CHEW PO (08:58)
[2024-05-24] MEDS: Valsartan 160 MG TABLET PO (08:58)
[2024-05-24] MEDS: carvediloL 6.25 MG TABLET PO (08:58)
[2024-05-24] MEDS: vancomycin HCL 125 MG CAPSULE PO ×2 (08:58→12:28)
[2024-05-24] MEDS: Montelukast Sodium 10 MG TABLET PO (08:58)
[2024-05-24] MEDS: Ezetimibe 10 MG TABLET PO (08:58)
[2024-05-24] MEDS: Albuterol Sulfate 90 MCG 8 GM INHALER 2 PUFF INHALE (09:01)
[2024-05-24] MEDS: ondansetron HCL 4 MG/2 ML VIAL IVPUSH (09:18)
--- NOTE | 2024-05-24 12:01 | P.DS_ITS ---
DS: Providers Provider Date of Service: 05/24/24 Date of admission: 05/21/24 15:00 Date of discharge: 05/24/24 Primary care physician: Parvez Altamirano MD DS: Diagnosis Discharge Diagnosis (1) Intractable diarrhea: Status: Acute DS: Summary Hospital Course Hospital Course: 73-year-old female recently admitted with EPEC diarrhea and discharge 05/15/2024 presents with persistent diarrhea failing outpatient therapies. Patient was see n in ER 05/17 and discharged home. Patient continued have diarrhea and now presents with weakness and profuse diarrhea in the absence of fever and chills Hospital Course Patient admitted to general medical floor and started on gentle volume repletion. She was also started on vancomycin 125 mg q.i.d.. Over the course of the next 48 hours her diet was advanced and she tolerated small amounts food but was able to maintain her volume status orally. On the day of discharge she is requesting to be DC to home and will follow up with the PCP. At this point in time I believe she is medically stable for same Time Attestation Discharge Coordination Time (in mins): 35 Quality: Safe Use of Opioids Does Pt have an Active Cancer Diagnosis on the Problem List?: No Quality: Stroke Does the patient have a stroke diagnosis?: No Physical Exam Vital Signs: Vital Signs: Last Vital Signs Temp 97.1 F 05/24/24 07:50 Pulse 74 05/24/24 07:50 Resp 18 05/24/24 07:50 BP 144/76 H 05/24/24 07:50 Pulse Ox 96 05/24/24 07:50 O2 Del Method Room Air 05/24/24 07:50 BMI result Body Mass Index 21.1 Const: Other: Awake alert no acute distress HEENT: Other: Membranes moist Resp: Other: Clear to auscultation bilaterally no rales rhonchi or wheezes Cardio: Other: No S4; positive S1-S2; no S3 murmurs rubs or gallops GI: Other: Soft hyperactive bowel sounds. Nontender throughout no rebound or guarding Neuro: Other: Cranial nerves 2-12 grossly intact as tested. Motor is 5/5 all extremities. Sensation is intact. Cognition appropriate Extrem: Other: No edema bilaterally Discharge Plan Discharge Anticipated Discharge Date/Time: 05/24/24 11:16 Patient Disposition: Home Health Service Discharge Diagnosis: Intractable diarrhea Referrals: [facility] [Other] - 1 Week Parvez Benedict MD [Primary Care Provider] - 1 Week Discharge Medications: New vancomycin 125 mg capsule See Rx Instructions .ROUTE .COMPLEX Qty: 70 0RF Rx Instructions: Vancomycin 125 mg; 1 p.o. q.i.d. x1 week followed by 1 p.o. t.i.d. x1 week followed by 1 b.i.d. for 1 week and daily for 1 week Continued carisoprodol 350 mg tablet 350 mg PO BEDTIME carvedilol 6.25 mg tablet 6.25 mg PO BID omeprazole 20 mg capsule,delayed release(DR/EC) 20 mg PO BID montelukast 10 mg tablet 10 mg PO DAILY furosemide 20 mg tablet 20 mg PO DAILY albuterol sulfate 90 mcg/actuation Hfa Aerosol Inhaler 2 puff INHALATION Q6H PRN (Reason: Shortness Of Breath) ezetimibe 10 mg tablet 10 mg PO DAILY Asmanex HFA 200 mcg/actuation HFA aerosol inhaler 2 puff INHALATION DAILY Leqvio 284 mg/1.5 mL syringe 284 mg subcut [id number] propranolol 10 mg tablet 10 mg PO TID PRN (Reason: anxiety) cyclosporine [Restasis] 0.05 % dropperette 1 drp ophthalmic (eye) BID ondansetron 4 mg tablet,disintegrating 4 mg PO Q8H PRN (Reason: nausea and vomiting) Qty: 20 1RF carisoprodol 350 mg tablet 175 mg PO DAILY PRN (Reason: Sleep) olmesartan 40 mg tablet 40 mg PO DAILY melatonin 10 mg Tablet 10 mg PO BEDTIME Discharge Orders: Discharge Order (Routine); Ordered 05/24/24 Ordered By: Hank Stewart Diet: Advance to usual diet Activity on Discharge: As tolerated Stand Alone Forms: Patient Portal Discharge page Print Language: Malaysian Care Plan Goals: Resume all medications as taken prior to hospital. Vancomycin has been added to your regimen: take 1 tab 4 times a day for 1 week, 1 tab 3 times a day for 1 week, 1 tab twice a day for 1 week and finally 1 tab daily for 1 week Health Concerns: Follow-up with your PCP next available appointment Plan of Treatment: Advance her diet slowly. Avoid milk products and creamy sauces Assessment: See discharge summary
--- NOTE | 2024-05-24 12:03 | P.F2F_ITS ---
Service Date Service Date: 05/24/24 Encounter Date of encounter: 05/24/24 Encounter: Acute hospitalization Reasons for Services Signs and symptoms assessed: Assess med compliance and med teaching as well as monitoring volume status Reason for penitentiary: medication management, medication treatment and teach disease management Homebound: Leaving the home is medically contraindicated at this time without the asist of a device and/or another person due th the listed conditions above and below. Reason homebound: unsteady gait / fall risk and unable to drive Certification: Based on the above findings, I certify that this patient is confined to the home and needs intermittent penitentiary care, physical therapy and/or speech therapy, or continues to need occupational therapy. The patient is under my care, and I have initiated the establishment of the plan of care. The patient will be followed by a physician who will periodically review the plan of care. Time Spent With Patient Time: Total time managing care of this patient today ____ minutes.
== END 2024-05-24 14:35 | disposition home health service (06) | DRG 373 ==
LOC: HO.ED 15:15 → HO.EDOVER 15:28 → HO.S3 05-22 00:20
PROVIDERS: Physician Assistant Medical; Admitting Provider Hospitalist; Emergency Provider Emergency Medicine; PCP Family Medicine; Visit Provider Hospitalist
DX: A04.0 Enteropathogenic Escherichia coli infection (principal); M32.9 Systemic lupus erythematosus, unspecified; K21.9 Gastro-esophageal reflux disease without esophagitis; E78.5 Hyperlipidemia, unspecified; M79.7 Fibromyalgia; E86.0 Dehydration; I10 Essential (primary) hypertension; Z20.822 Contact with and (suspected) exposure to COVID-19; Z79.899 Other long term (current) drug therapy
CPT/HCPCS: 0241U; 36415; 80053; 81001; 81003; 83735; 85025; 87493; 87507; 99221; 99285; J1650; J2405; J3480; J7120

== ENCOUNTER 2024-05-25 23:34 | Emergency (ER) | payer OTHER, SELFPAY ==
--- NOTE | ~2024-05-25 | CT_ITS ---
EXAMINATION: CT ABDOMEN AND PELVIS WITH CONTRAST CLINICAL INFORMATION: Pain and diarrhea. COMPARISON: None available. TECHNIQUE: Multidetector volumetric images were obtained from the superior aspect of the liver through the pubic symphysis following administration 85 mL of Omnipaque 350 intravenous contrast. Sagittal and coronal reformatted images were obtained on the technologist's workstation. Oral contrast: No This CT examination was performed using dose optimization techniques as appropriate, variously including the following: *Automated exposure control *Adjustment of mA and/or kV according to patient size (this includes techniques or standardized protocols for targeted exams where dose is matched to indication/reason for exam; i.e. extremities or head) *Use of iterative reconstruction technique DLP: 326 mGy-cm FINDINGS: LUNG BASES: There is minimal basilar atelectasis and/or scarring. LIVER, GALLBLADDER, AND BILIARY TREE: The liver is normal in size, shape, and attenuation. No focal hepatic lesion or biliary ductal dilatation is present. There has been a prior cholecystectomy. PANCREAS: Unremarkable. SPLEEN: Unremarkable. ADRENAL GLANDS: Unremarkable. KIDNEYS AND URETERS: The kidneys are normal in size, shape, and attenuation. Scattered subcentimeter renal hypodensities are too small to characterize but likely small cysts. There is no hydronephrosis. BLADDER: Unremarkable. GASTROINTESTINAL TRACT: There are prominent mildly thickened small bowel loops throughout as well as fluid-filled minimally thickened large bowel loops. The appendix is visualized and is within normal limits. ABDOMINAL WALL: There is a small umbilical hernia containing fat. LYMPH NODES: Normal. VASCULAR: There is atherosclerotic plaque of the abdominal aorta. PELVIC VISCERA: Unremarkable. OSSEOUS STRUCTURES: There is grade 1 anterolisthesis L4 over L5 with moderate to severe L4-L5 disc degenerative change and moderate to severe L4-L5 spinal canal narrowing. CT/CT abdomen pelvis w IV con IMPRESSION: 1. Prominent mildly thickened small bowel loops as well as fluid-filled minimally thickened large bowel loops. These findings are suggestive of enterocolitis. 2. Grade 1 anterolisthesis L4 over L5 with moderate to severe L4-L5 spinal canal narrowing. Fleischner guidelines were followed.
[2024-05-25 23:55] VITALS: BP 126/62; PULSE 91; O2SAT 98; BMI 21.0
[2024-05-26] VITALS: BP 139/65; PULSE 91; RESP 16; TEMP 37.3; O2SAT 95
[2024-05-26] MEDS: 0.9 % Sodium Chloride 1,000 ML 500 ML IVCONT (00:48)
[2024-05-26 01:09] LABS: Basophils Percent Auto 0.5 % (0-2); Eosinophils Absolute Auto 0.1 X10*3/uL (0.0-0.4); Hematocrit 39.4 % (37.0-47.0); Imm Gran Abs Auto 0.03 X10*3/uL (0.00-0.03); Imm Gran Pct Auto 0.5 % (0.0-0.4); Lymphocytes Absolute Auto 0.6 X10*3/uL (1.2-4.9); MANUAL DIFF FLAG NO; Mean Corpuscular Hemoglobin 27.8 pg (27.0-33.0); Mean Corpuscular Volume 84.2 fL (80.0-98.0); Monocytes Absolute Auto 0.6 X10*3/uL (0.1-1.2); Monocytes Percent Auto 10.3 % (2-11); Neutrophils Absolute Auto 4.9 x10*3/uL (2.0-8.3); Neutrophils Percent Auto 77.7 % (45-73); Platelet Count 221 X10*3/uL (160-400); Red Blood Count 4.68 X10*6/uL (4.20-5.50); Red Cell Distribution Width 13.1 % (11.0-16.0); White Blood Count 6.2 X10*3/uL (4.8-10.8)
[2024-05-26 01:28] LABS: Alanine Aminotransferase 71 U/L (0-31); Albumin Level 3.7 g/dL (3.5-5.0); Alkaline Phosphatase 81 U/L (39-117); Anion Gap 14 (12-20); Aspartate Amino Transferase 74 U/L (5-31); Bilirubin Total 0.5 mg/dL (0.0-1.0); Blood Urea Nitrogen 11 mg/dL (9-16); Calcium 9.2 mg/dL (8.4-10.2); Carbon Dioxide 24 mmol/L (22-29); Chloride 104 mmol/L (96-108); Estimated Glomerular Filt Rate > 60; Glucose Random 142 mg/dL (60-115); Potassium 3.4 mmol/L (3.3-5.1); Sodium 139 mmol/L (135-145); Total Protein 6.4 g/dL (6.5-8.0)
[2024-05-26 02:00] VITALS: BP 142/68; PULSE 87; RESP 18; TEMP 36.9; O2SAT 96
--- NOTE | 2024-05-26 03:18 | ED.NAVMDI ---
HPI - Nausea/Vomiting/Diarrhea General Chief complaint: Nausea/Vomiting/Diarrhea Stated complaint: vomiting and diarrhea Time Seen by Provider: 05/25/24 23:51 Source: patient and EMS Mode of arrival: EMS Limitations: no limitations History of Present Illness ED Provider: Dr. Reese HPI Narrative: This is the patients 4th visit for diarrhea. She was diagnosed with EPEC colitis discharged yesterday and had a voluminious diarrhea when she got home. She comes back feeling like she needs to be admitted again. Related Data Home Medications ?Medication ?Instructions ?Recorded ?Confirmed albuterol sulfate 90 mcg/actuation 2 puff inhalation Q6H PRN 06/07/23 05/21/24 aerosol inhaler Shortness Of Breath carisoprodol 350 mg tablet 350 mg PO BEDTIME 06/07/23 05/21/24 carvedilol 6.25 mg tablet 6.25 mg PO BID 06/07/23 05/21/24 ezetimibe 10 mg tablet 10 mg PO DAILY 06/07/23 05/21/24 furosemide 20 mg tablet 20 mg PO DAILY 06/07/23 05/21/24 inclisiran 284 mg/1.5 mL 284 mg subcut [id number] 06/07/23 05/21/24 subcutaneous syringe (Leqvio) mometasone 200 mcg/actuation HFA 2 puff inhalation DAILY 06/07/23 05/21/24 aerosol inhaler (Asmanex HFA) montelukast 10 mg tablet 10 mg PO DAILY 06/07/23 05/21/24 omeprazole 20 mg capsule,delayed 20 mg PO BID 06/07/23 05/21/24 release cyclosporine 0.05 % eye drops in a 1 drp ophthalmic (eye) BID 05/13/24 05/21/24 dropperette (Restasis) propranolol 10 mg tablet 10 mg PO TID PRN anxiety 05/13/24 05/21/24 carisoprodol 350 mg tablet 175 mg PO DAILY PRN Sleep 05/21/24 05/21/24 melatonin 10 mg tablet 10 mg PO BEDTIME 05/21/24 05/21/24 olmesartan 40 mg tablet 40 mg PO DAILY 05/21/24 05/21/24 Previous Rx's ?Medication ?Instructions ?Recorded ondansetron 4 mg disintegrating 4 mg PO Q8H PRN nausea and 05/17/24 tablet vomiting #20 tabs vancomycin 125 mg capsule See Rx Instructions .Route 05/24/24 .COMPLEX #70 caps Allergies Allergy/AdvReac Type Severity Reaction Status Date / Time acetaminophen [From TYLENOL] Allergy Intermediate ITCHING Verified 05/25/24 23:58 epinephrine [EPINEPHRINE] Allergy Intermediate TACHYCARDIA Verified 05/25/24 23:58 iodine [IODINE] Allergy Intermediate RASH Verified 05/25/24 23:58 Penicillins [PENICILLINS] Allergy Intermediate ITCHING/HIV Verified 05/25/24 23:58 ES Sulfa (Sulfonamide Allergy Intermediate NAUSEA Verified 05/25/24 23:58 Antibiotics) [SULFA (SULFONAMIDE ANTIBIOTICS)] egg [EGG] Allergy Mild SENSITIVITY Verified 05/25/24 23:58 diclofenac [DICLOFENAC] Allergy Unknown HIVES Verified 05/25/24 23:58 levofloxacin [From LEVAQUIN] Allergy Unknown SEVERE Verified 05/25/24 23:58 ITCHING meperidine [Demerol] Allergy Unknown Rash Verified 05/25/24 23:58 penicillin V Allergy Unknown Rash Verified 05/25/24 23:58 procaine [From NOVOCAIN] Allergy Unknown UNKNOWN Verified 05/25/24 23:58 doxycycline AdvReac Stomach Verified 05/25/24 23:58 Upset SHELLFISH Allergy Severe ANAPHYLAXIS Uncoded 05/25/24 23:58 eggs Allergy Unknown Rash Uncoded 05/25/24 23:58 Novocain Allergy Unknown Rash Uncoded 05/25/24 23:58 From DEMEROL AdvReac Intermediate HYPOTENSION Uncoded 05/25/24 23:58 Review of Systems Review of Systems: Yes all other systems are reviewed and are negative Neurologic: Denies Sensory deficit (Neuro) [facility] Past Medical History Medical History Hypertension Mitral valve prolapse Lupus GERD (gastroesophageal reflux disease) COVID-19 long hauler Hypoglycemia Asthma Hyperlipidemia Fibromyalgia Social History Social History Household Members: Spouse Housing: House Do you presently have visiting nurse or other home services: No Alcohol intake: never Comment: pt. refusing bed alarm . Patient Tobacco Use Status: Never used Tobacco Smoked in Last 30 Days: No e-Cigarette/Vaping Use: Never Used Second Hand Smoke Exposure: No Use of substances other than those prescribed or required for medical reasons: No Advance Directives: Yes Advance Directives on File: Yes Advance Directives Date on File: 06/08/23 Do you have a plan to hurt others: No Plan service: No Physical Exam Vital Signs: Vital Signs: Last Vital Signs Temp 97.9 F 05/26/24 04:35 Pulse 89 05/26/24 04:35 Resp 16 05/26/24 04:35 BP 142/76 H 05/26/24 04:35 Pulse Ox 99 05/26/24 04:35 O2 Del Method Room Air 05/26/24 04:35 BMI result Body Mass Index 21.0 Const: Other: female appearing tired Nutritional Appearance: average body habitus Orientation/consciousness: oriented to person and patient oriented x3 Limitations: no limitations HEENT: Head: Yes normal to inspection Ears: external ears normal General nose exam: Normal external nose present Mouth: Normal oral and palatal mucosa present and oropharynx normal Throat: Yes posterior oropharynx normal Eyes: General: appearance normal, both eyes and all related structures Neck: Other: supple Neck: Yes normal visual inspection Chest: Chest palpation & inspection: normal inspection of the chest Resp: Auscultation: clear to auscultation bilaterally Cardio: Jugular venous distension: no JVD Rate: regular rate Rhythm: regular rhythm Heart sounds: S1 normal heart sound present and S2 normal heart sound present GI: Inspection: Yes normal to inspection Palpation (GI): Soft to palpation, nontender and No hepatosplenomegaly present Auscultation: normal bowel sounds : General: Yes no CVA tenderness Back/Spine/Pelvis: Back: no CVA tenderness Skin: General skin exam: no rashes or lesions noted Neuro: General: oriented to person and patient oriented x3 Cranial nerves: Yes CN's II-XII intact bilaterally Motor exam (neuro): 5/5 motor strength present throughout Sensory Exam: No Sensory deficit (Neuro) Extrem: General: Yes normal to inspection Psych: Appearance: grossly normal Course Reevaluation(s) Reevaluation #1: no further diarrhea will attempt to discharge patient, CT finding consistent with enteritis Time: 07:41 Medications Administered Discontinued Medications Generic Name Dose Route Start Last Admin Trade Name Freq PRN Reason Stop Dose Admin Sodium Chloride 1,000 mls @ 500 mls/hr 05/26/24 00:15 05/26/24 03:00 Ns IVCONT 05/26/24 02:14 Infused .Q2H KARSTEN Infusion Iohexol 85 ml 05/26/24 04:18 05/26/24 04:19 Iohexol 350 Mg/Ml 100 Ml Infus..Btl IV 05/26/24 04:19 85 ml ONCE ONE Administration Medical Decision Making Differential Diagnosis Differential Diagnoses: The differential diagnosis associated with the presentation includes (diarrhea, enteritis, electrolyte abnormality) Admission/Observation Consideration of admission/observation: Escalation of care including admission/observation considered (upon arrival patient considered for admission) Consult Healthcare Provider Management of the patient was discussed with: Hospitalist Lab Data 05/26/24 01:02 05/26/24 01:02 Labs: Lab Results 05/26/24 Range/Units 01:02 WBC 6.2 (4.8-10.8) X10*3/uL RBC 4.68 (4.20-5.50) X10*6/uL Hgb 13.0 (12.0-16.0) g/dl Hct 39.4 (37.0-47.0) % MCV 84.2 (80.0-98.0) fL MCH 27.8 (27.0-33.0) pg MCHC 33.0 (31.0-35.0) g/dl RDW 13.1 (11.0-16.0) % Plt Count 221 D (160-400) X10*3/uL MPV 10.0 (9.4-12.3) fL Immature Gran % (Auto) 0.5 H (0.0-0.4) % Neut % (Auto) 77.7 H (45-73) % Lymph % (Auto) 10.0 L (20-40) % [place] % (Auto) 10.3 (2-11) % Eos % (Auto) 1.0 (0-4) % Baso % (Auto) 0.5 (0-2) % Lymph # (Auto) 0.6 L (1.2-4.9) X10*3/uL [place] # (Auto) 0.6 (0.1-1.2) X10*3/uL Eos # (Auto) 0.1 (0.0-0.4) X10*3/uL Baso # (Auto) 0.0 (0.0-0.2) X10*3/uL Abs Immat Gran (auto) 0.03 (0.00-0.03) X10*3/uL Absolute Neuts (auto) 4.9 (2.0-8.3) x10*3/uL Absolute Nucleated RBC 0.000 (0.0-0.012) X10*3/uL Nucleated RBC % (auto) 0.0 (0.0-0.2) /100WBC Sodium 139 (135-145) mmol/L Potassium 3.4 (3.3-5.1) mmol/L Chloride 104 (96-108) mmol/L Carbon Dioxide 24 (22-29) mmol/L Anion Gap 14 (12-20) BUN 11 (9-16) mg/dL Creatinine 0.67 (0.5-1.4) mg/dL Estim Creat Clear Calc 60.0 Estimated GFR > 60 Random Glucose 142 H (60-115) mg/dL Calcium 9.2 D (8.4-10.2) mg/dL Total Bilirubin 0.5 (0.0-1.0) mg/dL AST 74 H (5-31) U/L ALT 71 H (0-31) U/L Alkaline Phosphatase 81 (39-117) U/L Total Protein 6.4 L (6.5-8.0) g/dL Albumin 3.7 (3.5-5.0) g/dL Radiology Impression Discussion of test interpretation with radiology: I have reviewed the radiologist's reading. (and agree with the CT findings) Independent Historian Clinical information obtained from an independent historian. History obtained from or confirmed by: Other (family) Discharge Plan Discharge Clinical Impression: Colitis Patient Disposition: Home, Self-Care Instructions: Colitis (ED), Enteritis (ED) Prescriptions: No Action carisoprodol 350 mg tablet 350 mg PO BEDTIME carvedilol 6.25 mg tablet 6.25 mg PO BID omeprazole 20 mg capsule,delayed release(DR/EC) 20 mg PO BID montelukast 10 mg tablet 10 mg PO DAILY furosemide 20 mg tablet 20 mg PO DAILY albuterol sulfate 90 mcg/actuation Hfa Aerosol Inhaler 2 puff INHALATION Q6H PRN (Reason: Shortness Of Breath) ezetimibe 10 mg tablet 10 mg PO DAILY Asmanex HFA 200 mcg/actuation HFA aerosol inhaler 2 puff INHALATION DAILY Leqvio 284 mg/1.5 mL syringe 284 mg subcut [id number] propranolol 10 mg tablet 10 mg PO TID PRN (Reason: anxiety) cyclosporine [Restasis] 0.05 % dropperette 1 drp ophthalmic (eye) BID ondansetron 4 mg tablet,disintegrating 4 mg PO Q8H PRN (Reason: nausea and vomiting) Qty: 20 1RF carisoprodol 350 mg tablet 175 mg PO DAILY PRN (Reason: Sleep) olmesartan 40 mg tablet 40 mg PO DAILY melatonin 10 mg Tablet 10 mg PO BEDTIME vancomycin 125 mg capsule See Rx Instructions .ROUTE .COMPLEX Qty: 70 0RF Rx Instructions: Vancomycin 125 mg; 1 p.o. q.i.d. x1 week followed by 1 p.o. t.i.d. x1 week followed by 1 b.i.d. for 1 week and daily for 1 week Referrals: Parvez Benedict MD [Primary Care Provider] - 3 days Print Language: Jordanian
[2024-05-26] MEDS: iohexoL 350 MG/ML 100 ML INFUS..BTL 85 ML IV (04:19)
[2024-05-26 04:35] VITALS: BP 142/76; PULSE 89; RESP 16; TEMP 36.6; O2SAT 99
[2024-05-26 08:03] VITALS: BP 142/82; PULSE 83; RESP 20; TEMP 37.2; O2SAT 97
== END 2024-05-26 08:04 | disposition home or self-care (01) ==
PROVIDERS: Emergency Provider Emergency Medicine; PCP Family Medicine
DX: K52.9 Noninfective gastroenteritis and colitis, unspecified (principal); I10 Essential (primary) hypertension; E78.5 Hyperlipidemia, unspecified; J45.909 Unspecified asthma, uncomplicated; Z79.899 Other long term (current) drug therapy
CPT/HCPCS: 36415; 74177; 80053; 85025; 99284; Q9967

== ENCOUNTER 2024-06-02 19:12 | Inpatient (IN) | payer OTHER, SELFPAY ==
--- NOTE | ~2024-06-02 | CT_ITS ---
EXAMINATION: CT ABDOMEN AND PELVIS WITH CONTRAST CLINICAL INFORMATION: Abdominal pain. COMPARISON: 05/26/2024. TECHNIQUE: Multidetector volumetric images were obtained from the superior aspect of the liver through the pubic symphysis following administration 85 mL of Omnipaque 350 intravenous contrast. Sagittal and coronal reformatted images were obtained on the technologist's workstation. Oral contrast: No This CT examination was performed using dose optimization techniques as appropriate, variously including the following: *Automated exposure control *Adjustment of mA and/or kV according to patient size (this includes techniques or standardized protocols for targeted exams where dose is matched to indication/reason for exam; i.e. extremities or head) *Use of iterative reconstruction technique DLP: 313 mGy-cm FINDINGS: LUNG BASES: Scarring or minimal subsegmental atelectasis at the lung bases LIVER, GALLBLADDER, AND BILIARY TREE: The liver is normal in size, shape, and attenuation. No focal hepatic lesion or biliary ductal dilatation is present. There has been a prior cholecystectomy. The extrahepatic common bile duct measures approximately 1.6 cm. PANCREAS: Unremarkable. SPLEEN: Unremarkable. ADRENAL GLANDS: Unremarkable. KIDNEYS AND URETERS: The kidneys are normal in size, shape, and attenuation. No hydronephrosis, hydroureter, or calculi seen. No perinephric stranding. Multiple subcentimeter cysts within the right kidney. BLADDER: Unremarkable. GASTROINTESTINAL TRACT: There are prominent fluid-filled mildly thickened small bowel loops and mildly thickened large bowel loops throughout. The appendix is visualized and is within normal limits. ABDOMINAL WALL: There is a small umbilical hernia containing fat. LYMPH NODES: Normal. VASCULAR: There is atherosclerotic plaque of the abdominal aorta and proximal branches. PELVIC VISCERA: Unremarkable. OSSEOUS STRUCTURES: There is grade 1 anterolisthesis L4 over L5 with severe L4-L5 degenerative change and severe L4-L5 spinal canal narrowing. CT/CT abdomen pelvis w IV con IMPRESSION: 1. Prominent fluid-filled small bowel loops and mildly thickened large bowel loops throughout the abdomen suggestive of an enterocolitis. 2. Severe L4-L5 degenerative change with grade 1 anterolisthesis and severe spinal canal narrowing. Fleischner guidelines were followed.
[2024-06-02 19:16] VITALS: BP 115/59; PULSE 90; RESP 14; TEMP 36; O2SAT 100; BMI 19.8
--- NOTE | 2024-06-02 19:22 | ECG_ITS ---
Test Reason : LOW BP Blood Pressure : / mmHG Vent. Rate : 082 BPM Atrial Rate : 082 BPM P-R Int : 134 ms QRS Dur : 076 ms QT Int : 396 ms P-R-T Axes : 061 014 047 degrees QTc Int : 462 ms Normal sinus rhythm Nonspecific T wave abnormality Abnormal ECG When compared with ECG of 13-MAY-2024 11:04, Nonspecific T wave abnormality no longer evident in Anterior leads Referred By: Generic ED Physician Electronically Signed By:DIANA FISCHER
[2024-06-02 20:34] VITALS: BP 115/64; PULSE 82; RESP 16; TEMP 36.3; O2SAT 99
--- NOTE | 2024-06-02 20:38 | MHC.EDTECH ---
This pct just assumed care of pt ,vitals taken ,patient daughter at bedside ,call brito within pt reach .
--- NOTE | 2024-06-02 20:43 | ED.GENADULT ---
HPI - General Adult General Chief complaint: General Medical Stated complaint: gi called ahead for patient? Time Seen by Provider: 06/02/24 20:43 Source: patient Mode of arrival: ambulatory Limitations: no limitations History of Present Illness ED Provider: chad COLLAZO narrative: Patient is 73 years old with history of lupus, hypertension, hyperlipidemia, fibromyalgia, asthma, GERD, migraine with history of nausea nonbloody diarrhea and abdominal pain for last 2 weeks workup so far is negative for C diff but patient taking vancomycin prophylactically no history of C diff in the past patient is discharged home on 05/24 for similar episode with dehydration comes back as noted to have low blood pressure 90/48 with patient feeling weak had about 3 bowel movements earlier today and has severe nausea without any vomiting today no fever no chills Related Data Home Medications ?Medication ?Instructions ?Recorded ?Confirmed albuterol sulfate 90 mcg/actuation 2 puff inhalation Q6H PRN 06/07/23 05/21/24 aerosol inhaler Shortness Of Breath carisoprodol 350 mg tablet 350 mg PO BEDTIME 06/07/23 05/21/24 carvedilol 6.25 mg tablet 6.25 mg PO BID 06/07/23 05/21/24 ezetimibe 10 mg tablet 10 mg PO DAILY 06/07/23 05/21/24 furosemide 20 mg tablet 20 mg PO DAILY 06/07/23 05/21/24 inclisiran 284 mg/1.5 mL 284 mg subcut [id number] 06/07/23 05/21/24 subcutaneous syringe (Leqvio) mometasone 200 mcg/actuation HFA 2 puff inhalation DAILY 06/07/23 05/21/24 aerosol inhaler (Asmanex HFA) montelukast 10 mg tablet 10 mg PO DAILY 06/07/23 05/21/24 omeprazole 20 mg capsule,delayed 20 mg PO BID 06/07/23 05/21/24 release cyclosporine 0.05 % eye drops in a 1 drp ophthalmic (eye) BID 05/13/24 05/21/24 dropperette (Restasis) propranolol 10 mg tablet 10 mg PO TID PRN anxiety 05/13/24 05/21/24 carisoprodol 350 mg tablet 175 mg PO DAILY PRN Sleep 05/21/24 05/21/24 melatonin 10 mg tablet 10 mg PO BEDTIME 05/21/24 05/21/24 olmesartan 40 mg tablet 40 mg PO DAILY 05/21/24 05/21/24 Previous Rx's ?Medication ?Instructions ?Recorded ondansetron 4 mg disintegrating 4 mg PO Q8H PRN nausea and 05/17/24 tablet vomiting #20 tabs vancomycin 125 mg capsule See Rx Instructions .Route 05/24/24 .COMPLEX #70 caps Allergies Allergy/AdvReac Type Severity Reaction Status Date / Time acetaminophen [From TYLENOL] Allergy Intermediate ITCHING Verified 06/02/24 19:21 epinephrine [EPINEPHRINE] Allergy Intermediate TACHYCARDIA Verified 06/02/24 19:21 iodine [IODINE] Allergy Intermediate RASH Verified 06/02/24 19:21 Penicillins [PENICILLINS] Allergy Intermediate ITCHING/HIV Verified 06/02/24 19:21 ES Sulfa (Sulfonamide Allergy Intermediate NAUSEA Verified 06/02/24 19:21 Antibiotics) [SULFA (SULFONAMIDE ANTIBIOTICS)] egg [EGG] Allergy Mild SENSITIVITY Verified 06/02/24 19:21 diclofenac [DICLOFENAC] Allergy Unknown HIVES Verified 06/02/24 19:21 levofloxacin [From LEVAQUIN] Allergy Unknown SEVERE Verified 06/02/24 19:21 ITCHING meperidine [Demerol] Allergy Unknown Rash Verified 06/02/24 19:21 penicillin V Allergy Unknown Rash Verified 06/02/24 19:21 procaine [From NOVOCAIN] Allergy Unknown UNKNOWN Verified 06/02/24 19:21 doxycycline AdvReac Stomach Verified 06/02/24 19:21 Upset SHELLFISH Allergy Severe ANAPHYLAXIS Uncoded 05/25/24 23:58 eggs Allergy Unknown Rash Uncoded 05/25/24 23:58 Novocain Allergy Unknown Rash Uncoded 05/25/24 23:58 From DEMEROL AdvReac Intermediate HYPOTENSION Uncoded 05/25/24 23:58 Review of Systems Review of Systems: Yes all other systems are reviewed and are negative PMFSH Past Medical History Medical History Hypertension Mitral valve prolapse Lupus GERD (gastroesophageal reflux disease) COVID-19 long hauler Hypoglycemia Asthma Hyperlipidemia Fibromyalgia Social History Social History Household Members: Spouse Housing: House Do you presently have visiting nurse or other home services: No Alcohol intake: never Comment: pt. refusing bed alarm . Patient Tobacco Use Status: Never used Tobacco Smoked in Last 30 Days: No e-Cigarette/Vaping Use: Never Used Second Hand Smoke Exposure: No Use of substances other than those prescribed or required for medical reasons: No Advance Directives: Yes Advance Directives Information Provided: No Advance Directives on File: No Advance Directives Date on File: 06/08/23 service: No Physical Exam ED Vital Signs: Vital Signs - 24 hr 06/02/24 19:16 06/02/24 20:34 06/02/24 22:23 Temperature 96.8 F 97.4 F 98.5 F Pulse Rate 90 82 82 Respiratory Rate 14 16 16 Blood Pressure 115/59 L 115/64 127/60 Pulse Oximetry 100 99 99 Oxygen Delivery Method Room Air Room Air Room Air 06/03/24 00:36 06/03/24 00:36 06/03/24 00:37 Temperature Pulse Rate 87 87 88 Respiratory Rate Blood Pressure 136/73 148/81 H 135/81 Pulse Oximetry Oxygen Delivery Method BMI result Body Mass Index 19.8 Appearance: Alert. Oriented X3. No acute distress. Eyes: PERRLA, No Nystagmus ENT: Pharynx normal. Oral Mucosa moist Neck: Normal inspection. Neck supple. CVS: Normal heart rate and rhythm. Pulses normal. Respiratory: No respiratory distress. Equal air entry bilateral, no wheezing/rales/rhonchi Abdomen: Soft and nontender. Bowel sounds are present, no mass palpable, no CVA tenderness Skin: Skin warm and dry. Normal skin color. Normal skin turgor. Extremities: No lower extremity edema. No calf tenderness Neuro: Oriented X 3. No motor deficit. No sensory deficit.No cerebellar signs , cranial nerves II-XII intact Medications Administered Generic Name Dose Route Start Last Admin Trade Name Freq PRN Reason Stop Dose Admin Dextrose/Sodium Chloride 1,000 mls @ 125 mls/hr 06/03/24 00:30 06/03/24 00:46 D5ns IVCONT 125 mls/hr .Q8H KARSTEN Administration Discontinued Medications Generic Name Dose Route Start Last Admin Trade Name Freq PRN Reason Stop Dose Admin Glucagon 1 mg 06/02/24 23:13 06/02/24 23:27 Glucagon Hcl 1 Mg Vial IVPUSH 06/02/24 23:14 1 mg ONCE ONE Administration Sodium Chloride 1,000 mls @ 999 mls/hr 06/02/24 21:05 06/02/24 23:26 Ns IV 06/02/24 22:05 Infused .Q1H1M ONE Infusion Dextrose/Sodium Chloride 1,000 mls @ 125 mls/hr 06/02/24 22:15 06/03/24 00:45 D51/2ns IVCONT Infused .Q8H KARSTEN Infusion Ondansetron HCl 4 mg 06/02/24 21:05 06/02/24 21:08 Ondansetron Hcl 4 Mg/2 Ml Vial IVPUSH 06/02/24 21:06 4 mg ONCE ONE Administration Medical Decision Making Medical Decision Making MDM Narrative: Patient with persistent diarrhea, nausea, vomiting for last 2 weeks stool culture was positive for EPEC on 05/14 treated with vancomycin empirically although C diff was negative comes with increased weakness and diarrhea noted to be hypoglycemic on dextrose drip likely from poor oral intake patient received IV infusion of dextrose along with IV glucagon will admit patient Differential Diagnosis Differential Diagnoses: The differential diagnosis associated with the presentation includes Gastroenteritis/metabolic disturbances Admission/Observation Consideration of admission/observation: Escalation of care including admission/observation considered Consult Healthcare Provider Management of the patient was discussed with: Hospitalist Lab Data MDM Lab Attestation statement: I reviewed the patient's lab results. 06/02/24 21:15 06/02/24 21:13 Labs: Lab Results 06/02/24 06/02/24 06/02/24 Range/Units 21:13 21:15 22:13 WBC 5.2 (4.8-10.8) X10*3/uL RBC 5.32 (4.20-5.50) X10*6/uL Hgb 14.5 (12.0-16.0) g/dl Hct 45.6 (37.0-47.0) % MCV 85.7 (80.0-98.0) fL MCH 27.3 (27.0-33.0) pg MCHC 31.8 (31.0-35.0) g/dl RDW 14.0 (11.0-16.0) % Plt Count 209 (160-400) X10*3/uL MPV 10.3 (9.4-12.3) fL Immature Gran % (Auto) 0.6 H (0.0-0.4) % Neut % (Auto) 62.6 (45-73) % Lymph % (Auto) 25.6 (20-40) % [place] % (Auto) 9.6 (2-11) % Eos % (Auto) 1.0 (0-4) % Baso % (Auto) 0.6 (0-2) % Lymph # (Auto) 1.3 (1.2-4.9) X10*3/uL [place] # (Auto) 0.5 (0.1-1.2) X10*3/uL Eos # (Auto) 0.1 (0.0-0.4) X10*3/uL Baso # (Auto) 0.0 (0.0-0.2) X10*3/uL Abs Immat Gran (auto) 0.03 (0.00-0.03) X10*3/uL Absolute Neuts (auto) 3.3 (2.0-8.3) x10*3/uL Absolute Nucleated RBC 0.000 (0.0-0.012) X10*3/uL Nucleated RBC % (auto) 0.0 (0.0-0.2) /100WBC Sodium 137 (135-145) mmol/L Potassium 4.5 D (3.3-5.1) mmol/L Chloride 107 (96-108) mmol/L Carbon Dioxide 12 L (22-29) mmol/L Anion Gap 23 H (12-20) BUN 13 (9-16) mg/dL Creatinine 0.84 (0.5-1.4) mg/dL Estim Creat Clear Calc 46.8 Estimated GFR > 60 POC Glucose 46 L* (60-115) mg/dL Random Glucose 56 L* (60-115) mg/dL Lactic Acid 1.2 (0.5-2.0) mmol/L Calcium 9.6 (8.4-10.2) mg/dL Total Bilirubin 0.3 (0.0-1.0) mg/dL AST 211 H (5-31) U/L ALT 181 H (0-31) U/L Alkaline Phosphatase 83 (39-117) U/L Total Protein 6.4 L (6.5-8.0) g/dL Albumin 3.8 (3.5-5.0) g/dL TSH 1.71 (0.32-4.0) uIU/mL 06/02/24 06/02/24 Range/Units 22:52 23:47 WBC (4.8-10.8) X10*3/uL RBC (4.20-5.50) X10*6/uL Hgb (12.0-16.0) g/dl Hct (37.0-47.0) % MCV (80.0-98.0) fL MCH (27.0-33.0) pg MCHC (31.0-35.0) g/dl RDW (11.0-16.0) % Plt Count (160-400) X10*3/uL MPV (9.4-12.3) fL Immature Gran % (Auto) (0.0-0.4) % Neut % (Auto) (45-73) % Lymph % (Auto) (20-40) % [place] % (Auto) (2-11) % Eos % (Auto) (0-4) % Baso % (Auto) (0-2) % Lymph # (Auto) (1.2-4.9) X10*3/uL [place] # (Auto) (0.1-1.2) X10*3/uL Eos # (Auto) (0.0-0.4) X10*3/uL Baso # (Auto) (0.0-0.2) X10*3/uL Abs Immat Gran (auto) (0.00-0.03) X10*3/uL Absolute Neuts (auto) (2.0-8.3) x10*3/uL Absolute Nucleated RBC (0.0-0.012) X10*3/uL Nucleated RBC % (auto) (0.0-0.2) /100WBC Sodium (135-145) mmol/L Potassium (3.3-5.1) mmol/L Chloride (96-108) mmol/L Carbon Dioxide (22-29) mmol/L Anion Gap (12-20) BUN (9-16) mg/dL Creatinine (0.5-1.4) mg/dL Estim Creat Clear Calc Estimated GFR POC Glucose 57 L* 86 (60-115) mg/dL Random Glucose (60-115) mg/dL Lactic Acid (0.5-2.0) mmol/L Calcium (8.4-10.2) mg/dL Total Bilirubin (0.0-1.0) mg/dL AST (5-31) U/L ALT (0-31) U/L Alkaline Phosphatase (39-117) U/L Total Protein (6.5-8.0) g/dL Albumin (3.5-5.0) g/dL TSH (0.32-4.0) uIU/mL Discharge Plan Discharge Clinical Impression: Acute gastroenteritis, Hypoglycemia Patient Disposition: Admitted As Inpatient Print Language: Italian
[2024-06-02] MEDS: ondansetron HCL 4 MG/2 ML VIAL IVPUSH (21:08)
[2024-06-02] MEDS: 0.9 % Sodium Chloride 1,000 ML 999 ML IV (21:08)
--- NOTE | 2024-06-02 21:13 | PC.NURSE ---
pt from home, a&ox4, respirations even and unlabored. pt reporting increasing weakness, lethargy, nausea and palpitations x3 days. pt reports being diagnosed with ecoli x3 weeks ago, is on antibiotics but is still experiencing 3 loose bowel movements per day. pt denies chest pain and vomiting at this time. pt reports decreased PO intake and weight loss. 22G placed in right wrist, fluids and medication per dec.
[2024-06-02 21:20] LABS: MANUAL DIFF FLAG NO
[2024-06-02 21:21] LABS: Basophils Percent Auto 0.6 % (0-2); Eosinophils Absolute Auto 0.1 X10*3/uL (0.0-0.4); Hematocrit 45.6 % (37.0-47.0); Hemoglobin 14.5 g/dl (12.0-16.0); Imm Gran Abs Auto 0.03 X10*3/uL (0.00-0.03); Imm Gran Pct Auto 0.6 % (0.0-0.4); Lymphocytes Absolute Auto 1.3 X10*3/uL (1.2-4.9); Lymphocytes Percent Auto 25.6 % (20-40); Mean Corpuscular HGB Conc 31.8 g/dl (31.0-35.0); Mean Corpuscular Hemoglobin 27.3 pg (27.0-33.0); Mean Corpuscular Volume 85.7 fL (80.0-98.0); Mean Platelet Volume 10.3 fL (9.4-12.3); Monocytes Absolute Auto 0.5 X10*3/uL (0.1-1.2); Monocytes Percent Auto 9.6 % (2-11); Neutrophils Absolute Auto 3.3 x10*3/uL (2.0-8.3); Neutrophils Percent Auto 62.6 % (45-73); Platelet Count 209 X10*3/uL (160-400); Red Blood Count 5.32 X10*6/uL (4.20-5.50); White Blood Count 5.2 X10*3/uL (4.8-10.8)
[2024-06-02 21:43] LABS: Lactic Acid 1.2 mmol/L (0.5-2.0)
[2024-06-02 22:00] LABS: Alanine Aminotransferase 181 U/L (0-31); Albumin Level 3.8 g/dL (3.5-5.0); Alkaline Phosphatase 83 U/L (39-117); Anion Gap 23 (12-20); Aspartate Amino Transferase 211 U/L (5-31); Bilirubin Total 0.3 mg/dL (0.0-1.0); Blood Urea Nitrogen 13 mg/dL (9-16); Calcium 9.6 mg/dL (8.4-10.2); Carbon Dioxide 12 mmol/L (22-29); Chloride 107 mmol/L (96-108); Creatinine Clr Calc Pharmacy 46.8; Estimated Glomerular Filt Rate > 60; Glucose Random 56 mg/dL (60-115); Potassium 4.5 mmol/L (3.3-5.1); Sodium 137 mmol/L (135-145); Total Protein 6.4 g/dL (6.5-8.0)
--- NOTE | 2024-06-02 22:04 | PC.NURSE ---
aware of pt blood sugar, per provider offer pt PO sugar, pt offered gingerale at this time.
[2024-06-02 22:10] LABS: TSH reflex Free T4 1.71 uIU/mL (0.32-4.0)
[2024-06-02 22:17] LABS: Glucose, Whole Blood 46 mg/dL (60-115)
[2024-06-02] MEDS: Dextrose 5 % and 0.45 % NaCl 1,000 ML 125 ML IVCONT (22:21)
--- NOTE | 2024-06-02 22:21 | PC.NURSE ---
after the consumption of gingerale this RN checked POC, noted to be 46. aware, IV drip started per dec.
[2024-06-02 22:23] VITALS: BP 127/60; PULSE 82; RESP 16; TEMP 36.9; O2SAT 99
[2024-06-02 22:55] LABS: Glucose, Whole Blood 57 mg/dL (60-115)
--- NOTE | 2024-06-02 22:56 | PC.NURSE ---
pt POC noted to be 56, pt continues to not have any complaints. aware.
[2024-06-02] MEDS: glucagon HCL 1 MG VIAL IVPUSH (23:27)
[2024-06-02 23:52] LABS: Glucose, Whole Blood 86 mg/dL (60-115)
[2024-06-03] VITALS (10 sets, daily range): BP systolic 122–176; BP diastolic 55–88; PULSE 79–88; RESP 12–18; TEMP 36.2–36.9; O2SAT 95–100; BMI 21.3
[2024-06-03] MEDS: Dextrose 5 % and 0.9 % NaCl 1,000 ML 125 ML IVCONT (00:46)
--- NOTE | 2024-06-03 01:17 | P.HPHOSP_ITS ---
History of Present Illness Date of Service: 06/03/24 Chief Complaint: Diarrhea This is a 73-year-old female with pertinent history of SLE, fibromyalgia, asthma not on home oxygen, gastroesophageal reflux disease, hypertension, mixed hyperlipidemia who presents to the emergency department for evaluation of loose stools. Of note, patient was admitted on 05/13 with diarrhea secondary to EPEC and discharged on 05/15. Patient continued to have diarrhea and failed outpatient therapies and hence was readmitted on 05/21. She was initiated on vancomycin 125 mg q.i.d. and discharged on 05/24. Patient states she continues to have loose stools, multiple episodes throughout the day. Patient states that the diarrhea never stopped since it started about 3 weeks ago. She also has nausea and poor p.o. intake. Also has generalized abdominal discomfort. No fever, chills, vomiting, chest discomfort, palpitations, shortness of breath, changes in urinary habits. In the emergency department, patient was found to be hypoglycemic and initiated on dextrose fluids Review of Systems 2 Constitutional: Constitutional: Reports fatigue, Reports malaise and Reports weakness Cardiovascular: Cardiovascular: Reports no additional cardiovascular complaints Respiratory: Respiratory: Reports no additional respiratory complaints Gastrointestinal: Gastrointestinal: Reports abdominal pain, Reports loose stools and Reports nausea Genitourinary: Genitourinary: Reports no additional female genitourinary complaints Neurologic: Reports weakness Endocrine: Endocrine: Reports fatigue [facility] Medical History Hypertension Mitral valve prolapse Lupus GERD (gastroesophageal reflux disease) COVID-19 long hauler Hypoglycemia Asthma Hyperlipidemia Fibromyalgia Pertinent family history: No family h/o of early CAD Social History Household Members: Spouse Housing: House Do you presently have visiting nurse or other home services: No Alcohol intake: never Comment: pt. refusing bed alarm . Patient Tobacco Use Status: Never used Tobacco Smoked in Last 30 Days: No e-Cigarette/Vaping Use: Never Used Second Hand Smoke Exposure: No Use of substances other than those prescribed or required for medical reasons: No Advance Directives: Yes Advance Directives Information Provided: No Advance Directives on File: No Advance Directives Date on File: 06/08/23 service: No Meds Allergies Allergy/AdvReac Type Severity Reaction Status Date / Time acetaminophen [From TYLENOL] Allergy Intermediate ITCHING Verified 06/02/24 19:21 epinephrine [EPINEPHRINE] Allergy Intermediate TACHYCARDIA Verified 06/02/24 19:21 iodine [IODINE] Allergy Intermediate RASH Verified 06/02/24 19:21 Penicillins [PENICILLINS] Allergy Intermediate ITCHING/HIV Verified 06/02/24 19:21 ES Sulfa (Sulfonamide Allergy Intermediate NAUSEA Verified 06/02/24 19:21 Antibiotics) [SULFA (SULFONAMIDE ANTIBIOTICS)] egg [EGG] Allergy Mild SENSITIVITY Verified 06/02/24 19:21 diclofenac [DICLOFENAC] Allergy Unknown HIVES Verified 06/02/24 19:21 levofloxacin [From LEVAQUIN] Allergy Unknown SEVERE Verified 06/02/24 19:21 ITCHING meperidine [Demerol] Allergy Unknown Rash Verified 06/02/24 19:21 penicillin V Allergy Unknown Rash Verified 06/02/24 19:21 procaine [From NOVOCAIN] Allergy Unknown UNKNOWN Verified 06/02/24 19:21 doxycycline AdvReac Stomach Verified 06/02/24 19:21 Upset SHELLFISH Allergy Severe ANAPHYLAXIS Uncoded 05/25/24 23:58 eggs Allergy Unknown Rash Uncoded 05/25/24 23:58 Novocain Allergy Unknown Rash Uncoded 05/25/24 23:58 From DEMEROL AdvReac Intermediate HYPOTENSION Uncoded 05/25/24 23:58 Active Medications: Current Medications Dextrose/Sodium Chloride (D5ns) 1,000 mls @ 125 mls/hr IVCONT .Q8H KARSTEN Last Admin: 06/03/24 00:46 Dose: 125 mls/hr Home Medications ?Medication ?Instructions ?Recorded ?Confirmed ?Last Taken ?Type albuterol sulfate 90 mcg/actuation 2 puff inhalation Q6H PRN 06/07/23 05/21/24 Unknown History aerosol inhaler Shortness Of Breath carisoprodol 350 mg tablet 350 mg PO BEDTIME 06/07/23 05/21/24 05/12/24 12:30 History carvedilol 6.25 mg tablet 6.25 mg PO BID 06/07/23 05/21/24 05/12/24 12:30 History ezetimibe 10 mg tablet 10 mg PO DAILY 06/07/23 05/21/24 05/12/24 12:30 History furosemide 20 mg tablet 20 mg PO DAILY 06/07/23 05/21/24 05/12/24 12:30 History inclisiran 284 mg/1.5 mL 284 mg subcut [id number] 06/07/23 05/21/24 6 Months Ago History subcutaneous syringe (Leqvio) ~11/13/23 mometasone 200 mcg/actuation HFA 2 puff inhalation DAILY 06/07/23 05/21/24 05/12/24 12:30 History aerosol inhaler (Asmanex HFA) montelukast 10 mg tablet 10 mg PO DAILY 06/07/23 05/21/24 05/12/24 12:30 History omeprazole 20 mg capsule,delayed 20 mg PO BID 06/07/23 05/21/24 05/12/24 12:30 History release cyclosporine 0.05 % eye drops in a 1 drp ophthalmic (eye) BID 05/13/24 05/21/24 05/12/24 12:30 History dropperette (Restasis) propranolol 10 mg tablet 10 mg PO TID PRN anxiety 05/13/24 05/21/24 Unknown History carisoprodol 350 mg tablet 175 mg PO DAILY PRN Sleep 05/21/24 05/21/24 Unknown History melatonin 10 mg tablet 10 mg PO BEDTIME 05/21/24 05/21/24 Unknown History olmesartan 40 mg tablet 40 mg PO DAILY 05/21/24 05/21/24 Unknown History Physical Exam 2 Vital Signs and Narrative: Vital Signs: Last Vital Signs Temp 98.5 F 06/02/24 22:23 Pulse 88 06/03/24 00:37 Resp 16 06/02/24 22:23 BP 135/81 06/03/24 00:37 Pulse Ox 99 06/02/24 22:23 O2 Del Method Room Air 06/02/24 22:23 BMI result Body Mass Index 19.8 Middle-aged female lying in bed in no distress Neck supple, no JVD Regular rate and rhythm, S1-S2 heard Regular breath sounds bilaterally, no wheezing or crackles appreciated Abdomen soft nontender, no guarding, no rigidity Patient is awake, alert and oriented to self, place, time and person ; no focal motor deficit Psych: Normal mood No pedal edema Results Labs 06/02/24 21:15 06/02/24 21:13 Labs: Laboratory Results - last 24 hr 06/02/24 06/02/24 06/02/24 21:13 21:15 22:13 MCV 85.7 MCH 27.3 MCHC 31.8 RDW 14.0 Plt Count 209 MPV 10.3 Immature Gran % (Auto) 0.6 H Neut % (Auto) 62.6 Lymph % (Auto) 25.6 [place] % (Auto) 9.6 Eos % (Auto) 1.0 Baso % (Auto) 0.6 Lymph # (Auto) 1.3 [place] # (Auto) 0.5 Eos # (Auto) 0.1 Baso # (Auto) 0.0 Abs Immat Gran (auto) 0.03 Absolute Neuts (auto) 3.3 Absolute Nucleated RBC 0.000 Nucleated RBC % (auto) 0.0 Anion Gap 23 H Estim Creat Clear Calc 46.8 Estimated GFR > 60 POC Glucose 46 L* Random Glucose 56 L* Lactic Acid 1.2 Calcium 9.6 Total Bilirubin 0.3 AST 211 H ALT 181 H Alkaline Phosphatase 83 Total Protein 6.4 L Albumin 3.8 TSH 1.71 06/02/24 06/02/24 22:52 23:47 MCV MCH MCHC RDW Plt Count MPV Immature Gran % (Auto) Neut % (Auto) Lymph % (Auto) [place] % (Auto) Eos % (Auto) Baso % (Auto) Lymph # (Auto) [place] # (Auto) Eos # (Auto) Baso # (Auto) Abs Immat Gran (auto) Absolute Neuts (auto) Absolute Nucleated RBC Nucleated RBC % (auto) Anion Gap Estim Creat Clear Calc Estimated GFR POC Glucose 57 L* 86 Random Glucose Lactic Acid Calcium Total Bilirubin AST ALT Alkaline Phosphatase Total Protein Albumin TSH Assessment and Plan (1) Diarrhea: Status: Acute Plan This is a 73-year-old female with pertinent history of SLE, fibromyalgia, asthma not on home oxygen, gastroesophageal reflux disease, hypertension, mixed hyperlipidemia who presents to the emergency department for evaluation of loose stools. #. Diarrhea, persistent: Obtaining CT abdomen/pelvis with contrast. Also consulting Gastroenterology, appreciate assistance. Repeat GI panel and C diff pending. Previously had EPEC #. Hypoglycemia: Likely due to inanition. Obtaining a.m. cortisol #. Asthma: No exacerbation during admission. Continue home inhalers #. Gastroesophageal reflux disease: On PPI #. Hypertension: Continue home antihypertensives #. Mixed hyperlipidemia: Zetia Med rec pending DVT prophylaxis: Lovenox Full code Admit as inpatient and will require two night minimum hospital stay for evaluation of diarrhea, monitoring of blood glucose levels, IV dextrose fluids (as above), which is not possible in a lesser acute setting. Specialist consult pending Quality Stroke Does the patient have a stroke diagnosis?: No VTE Prior VTE?: No VTE Risk Level:: Medical - moderate - high VTE Device Contraindication: Treatment Not Indicated VTE Drug Contraindication: N/A - Med Ordered
[2024-06-03] MEDS: iohexoL 350 MG/ML 100 ML INFUS..BTL 85 ML IV (01:21)
[2024-06-03 03:33] LABS: Glucose, Whole Blood 124 mg/dL (60-115)
[2024-06-03 06:42] LABS: MANUAL DIFF FLAG NO
[2024-06-03 06:46] LABS: Basophils Percent Auto 0.5 % (0-2); Hematocrit 36.6 % (37.0-47.0); Hemoglobin 11.9 g/dl (12.0-16.0); Imm Gran Abs Auto 0.01 X10*3/uL (0.00-0.03); Imm Gran Pct Auto 0.3 % (0.0-0.4); Lymphocytes Absolute Auto 1.1 X10*3/uL (1.2-4.9); Lymphocytes Percent Auto 27.5 % (20-40); Mean Corpuscular HGB Conc 32.5 g/dl (31.0-35.0); Mean Corpuscular Hemoglobin 27.4 pg (27.0-33.0); Mean Corpuscular Volume 84.1 fL (80.0-98.0); Mean Platelet Volume 10.6 fL (9.4-12.3); Monocytes Absolute Auto 0.4 X10*3/uL (0.1-1.2); Monocytes Percent Auto 10.6 % (2-11); Neutrophils Absolute Auto 2.4 x10*3/uL (2.0-8.3); Neutrophils Percent Auto 60.1 % (45-73); Platelet Count 198 X10*3/uL (160-400); Red Blood Count 4.35 X10*6/uL (4.20-5.50); Red Cell Distribution Width 13.8 % (11.0-16.0)
[2024-06-03 07:06] LABS: Glucose, Whole Blood 155 mg/dL (60-115)
[2024-06-03 07:07] LABS: Anion Gap 15 (12-20); Blood Urea Nitrogen 9 mg/dL (9-16); Carbon Dioxide 15 mmol/L (22-29); Chloride 113 mmol/L (96-108); Creatinine Clr Calc Pharmacy 54.6; Estimated Glomerular Filt Rate > 60; Glucose Random 168 mg/dL (60-115); Potassium 3.6 mmol/L (3.3-5.1); Sodium 139 mmol/L (135-145)
--- NOTE | 2024-06-03 07:18 | PC.NURSE ---
report received from previous RN, patient resting comfortably on stretcher, awaiting bed assignment,
[2024-06-03 07:20] LABS: Cortisol Random 4.9 ug/dL
[2024-06-03] MEDS: Lactated Ringers 1,000 ML 100 ML IVCONT (08:23)
[2024-06-03] MEDS: Enoxaparin Sodium 40 MG/0.4 ML SYRINGE SUBCUT (08:23)
--- NOTE | 2024-06-03 08:47 | PHA.MEDREC ---
Addendum entered by Lázaro Medeiros RPh 06/03/24 09:53: Reviewed by [facility] Original Note: Pharmacy Consult ? Medication Reconciliation Pharmacy has completed the medication reconciliation. Confirmed medications with patient and patients daughter at bedside. Patient confirmed she is taking Carvedilol 6.25mg BID. Also she confirmed she is on Leqvio injection once yearly and she states she should be due soon for that. She is taking a Vancomycin 125mg tab and she is currently taking it 1 TID until Wednesday 06/06 then she will be starting a 1 tab BID regimen for 2 weeks then shes done with it, she states she last took that yesterday. She said she last took the rest of the medications 2 days ago.
--- NOTE | 2024-06-03 10:21 | PM.GICN ---
History of Present Illness Data of Consult Service Date: 06/03/24 Requesting physician: Ramy Brunner Primary Care Provider: Parvez Altamirano MD HPI Reason for consult: Diarrhea This is a 73y.o F with PMH of who has had multiple admissions to the hospital over the past month for persistent watery diarrhea. Pt was initially seen in hosp in April and at that time diagnosed EPEC diarrhea. However since then she has presented to hospital 05/21 and now again 06/02 for unrelenting diarrhea. Also reports visit to [facility] last week for the same. Diarrhea is loose, watery >5 BMs per day, even has BMs when she restricts her intake. Nocturnal sx +. With this pt also noted to have significant hypoglycemia on labs. Stool GI pcr and CDIff neg previous admission. PEnding this admission. Of note - pt was discharged on PO Vanc last time for unclear indication. CT Abd/pel with thickened small and large bowel wall. CBD measured around 16 mm which is quite dilated for this lady, despite hx of CCY. No panc or liver lesions noted. Review of Systems Review of Systems: Yes all other systems are reviewed and are negative [facility] Past Medical History Medical History Hypertension Mitral valve prolapse Lupus GERD (gastroesophageal reflux disease) COVID-19 long hauler Hypoglycemia Asthma Hyperlipidemia Fibromyalgia Social History Social History Household Members: Spouse Housing: House Do you presently have visiting nurse or other home services: No Alcohol intake: never Comment: pt. refusing bed alarm . Patient Tobacco Use Status: Never used Tobacco e-Cigarette/Vaping Use: Never Used Second Hand Smoke Exposure: No Advance Directives Date on File: 06/08/23 service: No Meds Allergies Allergy/AdvReac Type Severity Reaction Status Date / Time acetaminophen [From TYLENOL] Allergy Intermediate ITCHING Verified 06/02/24 19:21 epinephrine [EPINEPHRINE] Allergy Intermediate TACHYCARDIA Verified 06/02/24 19:21 iodine [IODINE] Allergy Intermediate RASH Verified 06/02/24 19:21 Penicillins [PENICILLINS] Allergy Intermediate ITCHING/HIV Verified 06/02/24 19:21 ES Sulfa (Sulfonamide Allergy Intermediate NAUSEA Verified 06/02/24 19:21 Antibiotics) [SULFA (SULFONAMIDE ANTIBIOTICS)] egg [EGG] Allergy Mild SENSITIVITY Verified 06/02/24 19:21 diclofenac [DICLOFENAC] Allergy Unknown HIVES Verified 06/02/24 19:21 levofloxacin [From LEVAQUIN] Allergy Unknown SEVERE Verified 06/02/24 19:21 ITCHING meperidine [Demerol] Allergy Unknown Rash Verified 06/02/24 19:21 penicillin V Allergy Unknown Rash Verified 06/02/24 19:21 procaine [From NOVOCAIN] Allergy Unknown UNKNOWN Verified 06/02/24 19:21 doxycycline AdvReac Stomach Verified 06/02/24 19:21 Upset SHELLFISH Allergy Severe ANAPHYLAXIS Uncoded 05/25/24 23:58 eggs Allergy Unknown Rash Uncoded 05/25/24 23:58 Novocain Allergy Unknown Rash Uncoded 05/25/24 23:58 From DEMEROL AdvReac Intermediate HYPOTENSION Uncoded 05/25/24 23:58 Active Medications: Current Medications Acetaminophen (Acetaminophen 325 Mg Tablet) 650 mg PO Q6H PRN PRN Reason: Pain, Mild (Pain Scale 1-3), fever or headache Calcium Carbonate (Calcium Carbonate 750 Mg Tab.Chew) 750 mg PO Q4H PRN PRN Reason: Heartburn Enoxaparin Sodium (Enoxaparin Sodium 40 Mg/0.4 Ml Syringe) 40 mg SUBCUT Q24H REPLACED BY [facility] Last Admin: 06/03/24 08:23 Dose: 40 mg Glucose (Glucose Gel 15 Gm Gel..Gram.) 15 gm PO Q15M PRN; Protocol PRN Reason: per Hypoglycemia Standing Ord. Dextrose (D10) 250 mls @ 750 mls/hr IV Q15M PRN; Protocol PRN Reason: per Hypoglycemia Standing Ord. Lactated Ringer's (Lr) 1,000 mls @ 100 mls/hr IVCONT .Q10H REPLACED BY [facility] Stop: 06/04/24 03:59 Last Admin: 06/03/24 08:23 Dose: 100 mls/hr Magnesium Hydroxide (Milk Of Magnesia 30 Ml Oral.Susp) 30 ml PO DAILY PRN PRN Reason: Constipation Melatonin (Melatonin 3 Mg Tablet) 6 mg PO BEDTIME PRN PRN Reason: Insomnia Ondansetron HCl (Ondansetron Hcl 4 Mg/2 Ml Vial) 4 mg IVPUSH Q8H PRN PRN Reason: Nausea and Vomiting Sodium Chloride (0.9 % Sodium Chloride Flush 3 Ml Syringe) 3 ml IVFLUSH QSHIFT REPLACED BY [facility] Last Admin: 06/03/24 07:04 Dose: Not Given Home Medications ?Medication ?Instructions ?Recorded ?Confirmed ?Last Taken ?Type albuterol sulfate 90 mcg/actuation 2 puff inhalation Q6H PRN 06/07/23 06/03/24 06/01/24 History aerosol inhaler Shortness Of Breath carisoprodol 350 mg tablet 350 mg PO BEDTIME 06/07/23 06/03/24 06/01/24 History carvedilol 6.25 mg tablet 6.25 mg PO BID 06/07/23 06/03/24 06/01/24 History ezetimibe 10 mg tablet 10 mg PO DAILY 06/07/23 06/03/24 06/01/24 History furosemide 20 mg tablet 20 mg PO DAILY PRN Salt levels 06/07/23 06/03/24 06/01/24 History inclisiran 284 mg/1.5 mL 284 mg subcut [id number] 06/07/23 06/03/24 6 Months Ago History subcutaneous syringe (Leqvio) ~11/13/23 mometasone 200 mcg/actuation HFA 2 puff inhalation DAILY 06/07/23 06/03/24 06/01/24 History aerosol inhaler (Asmanex HFA) montelukast 10 mg tablet 10 mg PO BEDTIME 06/07/23 06/03/24 06/01/24 History omeprazole 20 mg capsule,delayed 20 mg PO BID@0630,1630 06/07/23 06/03/24 06/01/24 History release cyclosporine 0.05 % eye drops in a 1 drp ophthalmic (eye) BID 05/13/24 06/03/24 06/01/24 History dropperette (Restasis) propranolol 10 mg tablet 10 mg PO BEDTIME PRN anxiety 05/13/24 06/03/24 06/01/24 History melatonin 10 mg tablet 10 mg PO BEDTIME 05/21/24 06/03/24 06/01/24 History olmesartan 40 mg tablet 40 mg PO DAILY 05/21/24 06/03/24 06/01/24 History Physical Exam Vital Signs: Vital Signs: Last Vital Signs Temp 98 F 06/03/24 09:49 Pulse 83 08/16/24 09:49 Resp 16 06/03/24 09:49 BP 122/55 L 06/03/24 09:49 Pulse Ox 99 06/03/24 09:49 O2 Del Method Room Air 06/03/24 09:49 BMI result Body Mass Index 19.8 Elderly female thin appearing abd soft nontender nondistended no peripheral edema Results Labs 06/03/24 06:10 06/03/24 10:44 Labs: Short CBC 06/02/24 06/03/24 Range/Units 21:15 06:10 WBC 5.2 4.0 L (4.8-10.8) X10*3/uL Hgb 14.5 11.9 L (12.0-16.0) g/dl Hct 45.6 36.6 L (37.0-47.0) % Plt Count 209 198 (160-400) X10*3/uL BMP 06/02/24 06/03/24 21:13 06:10 Sodium 137 139 Potassium 4.5 D 3.6 Chloride 107 113 H Carbon Dioxide 12 L 15 L BUN 13 9 Creatinine 0.84 0.72 Calcium 9.6 8.0 L D Liver Function 06/02/24 Range/Units 21:13 Total Bilirubin 0.3 (0.0-1.0) mg/dL AST 211 H (5-31) U/L ALT 181 H (0-31) U/L Alkaline Phosphatase 83 (39-117) U/L Albumin 3.8 (3.5-5.0) g/dL Assessment and Plan (1) Diarrhea: Status: Acute (2) Hypoglycemia: Status: Acute Plan Ddx: infectious less likely to last this duration. Inflammatory and secretory in differentials. CBD dilation noted on CT Abd/pel but pt with normal LFTs. Also considering idiopathic rapid gastric emptying mariusz given hypos. Plan: - Low residue diet as tolerated - IVF and electrolyte replacement as needed - pls monitor K and Mg daily - Functional NET screening labs ordered as appears to be secretory diarrhea based on hx - Agree with DCing Vanco - Plan for EGD/colo tentatively on Wednesday 06/06 - CLD on 06/05 with goLYTELY to start that PM. Orders placed. - MRI abd pancreas protocol within the next 2-4 weeks, if not able to get done this admission Thank you for allowing me to participate in her care. Pls do not hesitate to reach out for questions or concers. Procedures Date of Service Date of Service: 06/03/24
[2024-06-03 10:26] LABS: CDiff Gene PCR NEGATIVE (Negative)
--- NOTE | 2024-06-03 10:43 | PM.EVENT ---
Event Note Date of Service: 06/03/24 Event Note: Day Team Follow Up S Seen and examined this AM daughter bedside pt denies current abd pain; reports she took an imodium yesterday reports improvements in diarrhea thus far O vitals -- last documented appears comfortable, NAD s1s2 lungs clear abd soft nt/nd neuro non focal A/P 73 yo F with lupus who presents for her 3rd admission for on-going diarrhea resulting in hypotension and dehydration Gi consult -- discussed briefly: -c. diff negative, will hold vancomcyin for now (has not been positive in the past) -stool panel ordered -continue IVF -likely need scope given the duration of her symptoms hypoglycemia pt endorses this as a life long problem may need a non-emergent MRI (pancreas protocol) -- see GI notes for full details on why changed IVF to LR -- will see how she maintains sugars off D5NS metabolic acidosis secondary to GI losses repeat chem later today Remainder per H&P Time Spent With Patient Time: Total time managing care of this patient today ____ minutes.
[2024-06-03 10:54] LABS: Glucose, Whole Blood 86 mg/dL (60-115)
[2024-06-03 11:12] LABS: Anion Gap 16 (12-20); Blood Urea Nitrogen 8 mg/dL (9-16); Calcium 8.2 mg/dL (8.4-10.2); Carbon Dioxide 15 mmol/L (22-29); Chloride 114 mmol/L (96-108); Creatinine Clr Calc Pharmacy 53.1; Estimated Glomerular Filt Rate > 60; Glucose Random 94 mg/dL (60-115); Potassium 4.1 mmol/L (3.3-5.1); Sodium 141 mmol/L (135-145)
[2024-06-03 13:56] LABS: Glucose, Whole Blood 57 mg/dL (60-115)
[2024-06-03 14:40] LABS: Glucose, Whole Blood 68 mg/dL (60-115)
--- NOTE | 2024-06-03 14:41 | PC.NURSE ---
upon returning from break this RN was told that the pts POc was 57 and she was given some jello by the covering nurse. recheck POC 68.
[2024-06-03] MEDS: Dextrose 5 % and Lactated Ring 1,000 ML 100 ML IVCONT (15:35)
[2024-06-03] MEDS: Omeprazole 20 MG CAPSULE.DR PO (15:36)
[2024-06-03 16:00] LABS: Adenovirus F 40/41 Not Detected (Not Detect.); Astrovirus Not Detected (Not Detect.); Campylobacter Not Detected (Not Detect.); Cryptosporidium Not Detected (Not Detect.); Cyclospora cayetanensis Not Detected (Not Detect.); E. coli EAEC Not Detected (Not Detect.); E. coli EPEC Not Detected (Not Detect.); E. coli ETEC Not Detected (Not Detect.); E. coli STEC Not Detected (Not Detect.); Entamoeba histolytica Not Detected (Not Detect.); Giardia lamblia Not Detected (Not Detect.); Norovirus GI/GII Not Detected (Not Detect.); Plesiomonas shigelloides Not Detected (Not Detect.); Rotavirus A Not Detected (Not Detect.); Salmonella Not Detected (Not Detect.); Sapovirus Not Detected (Not Detect.); Shigella sp./EIEC Not Detected (Not Detect.); Vibrio Not Detected (Not Detect.); Vibrio Cholerae Not Detected (Not Detect.); Yersinia enterocolitica Not Detected (Not Detect.)
[2024-06-03] MEDS: ondansetron HCL 4 MG/2 ML VIAL IVPUSH (17:37)
--- NOTE | 2024-06-03 17:40 | PC.NURSE ---
Pt reporting nausea, blood sugar 120. PRN zofran given, pending effectiveness. Pt is refusing bed alarm at this time.
[2024-06-03 17:43] LABS: Glucose, Whole Blood 120 mg/dL (60-115)
[2024-06-03] MEDS: Loperamide HCl 2 MG CAPSULE PO (21:22)
[2024-06-03] MEDS: Montelukast Sodium 10 MG TABLET PO (21:22)
[2024-06-03] MEDS: carvediloL 6.25 MG TABLET PO (22:04)
[2024-06-03] MEDS: Propranolol HCL 10 MG TABLET PO (22:06)
[2024-06-03 22:14] LABS: Glucose, Whole Blood 94 mg/dL (60-115)
[2024-06-04] MEDS: carisoprodoL 350 MG TABLET PO (00:06)
[2024-06-04 04:00] VITALS: BP 176/86; PULSE 80; RESP 18; TEMP 36.3; O2SAT 98
[2024-06-04] MEDS: Dextrose 5 % and Lactated Ring 1,000 ML 100 ML IVCONT ×3 (04:26→21:27)
[2024-06-04 05:04] LABS: Glucose, Whole Blood 110 mg/dL (60-115)
[2024-06-04] MEDS: Omeprazole 20 MG CAPSULE.DR PO ×2 (05:17→15:30)
--- NOTE | 2024-06-04 07:32 | P.PNIM_ITS ---
Subjective Subjective Date of Service: 06/04/24 Interval History: f/u on diarrhea, hypotension, metabolic acidosis overall better today, still with diarrha, no abd pain Physical Exam 2 Vital Signs: Vital Signs: Last Vital Signs Temp 97.3 F 06/04/24 04:00 Pulse 80 06/04/24 04:00 Resp 18 06/04/24 04:00 BP 176/86 H 06/04/24 04:00 Pulse Ox 98 06/04/24 04:00 O2 Del Method Room Air 06/04/24 04:00 BMI result Body Mass Index 21.3 Const: Other: General: AO X 3, no acute distress Resp: CTA bilateral CVS: S1,S2,RRR GI: +BS, NT, no distention Skin: No rash Neuro: motor grossly intact Psych: appropriate affect Objective Data Active Medications Acetaminophen (Acetaminophen 325 Mg Tablet) 650 mg PO Q6H PRN PRN Reason: Pain, Mild (Pain Scale 1-3), fever or headache Calcium Carbonate (Calcium Carbonate 750 Mg Tab.Chew) 750 mg PO Q4H PRN PRN Reason: Heartburn Carisoprodol (Carisoprodol 350 Mg Tablet) 350 mg PO BEDTIME [facility] Last Admin: 06/04/24 00:06 Dose: 350 mg Documented By: RENEE Comments: pt takes at this time Ezetimibe (Ezetimibe 10 Mg Tablet) 10 mg PO DAILY [facility] Enoxaparin Sodium (Enoxaparin Sodium 40 Mg/0.4 Ml Syringe) 40 mg SUBCUT Q24H [facility] Last Admin: 06/03/24 08:23 Dose: 40 mg Documented By: MO Glucose (Glucose Gel 15 Gm Gel..Gram.) 15 gm PO Q15M PRN; Protocol PRN Reason: per Hypoglycemia Standing Ord. Dextrose (D10) 250 mls @ 750 mls/hr IV Q15M PRN; Protocol PRN Reason: per Hypoglycemia Standing Ord. Dextrose/Lactated Ringer's (D5lr) 1,000 mls @ 100 mls/hr IVCONT .Q10H [facility] Last Admin: 06/04/24 04:26 Dose: 100 mls/hr Documented By: RENEE Magnesium Hydroxide (Milk Of Magnesia 30 Ml Oral.Susp) 30 ml PO DAILY PRN PRN Reason: Constipation Melatonin (Melatonin 3 Mg Tablet) 6 mg PO BEDTIME PRN PRN Reason: Insomnia Montelukast Sodium (Montelukast Sodium 10 Mg Tablet) 10 mg PO BEDTIME [facility] Last Admin: 06/03/24 21:22 Dose: 10 mg Documented By: RENEE Omeprazole (Omeprazole 20 Mg Capsule.) 20 mg PO BID@0630,1630 [facility] Last Admin: 06/04/24 05:17 Dose: 20 mg Documented By: RENEE Ondansetron HCl (Ondansetron Hcl 4 Mg/2 Ml Vial) 4 mg IVPUSH Q8H PRN PRN Reason: Nausea and Vomiting Last Admin: 06/03/24 17:37 Dose: 4 mg Documented By: JERAD Propranolol HCl (Propranolol Hcl 10 Mg Tablet) 10 mg PO BEDTIME PRN; Protocol PRN Reason: anxiety Last Admin: 06/03/24 22:06 Dose: 10 mg Documented By: RENEE Sodium Chloride (0.9 % Sodium Chloride Flush 3 Ml Syringe) 3 ml IVFLUSH QSHIFT [facility] Last Admin: 06/04/24 00:09 Dose: Not Given Documented By: RENEE Non-Admin Reason: IV Running Labs 06/03/24 06:10 06/04/24 08:24 Labs: Laboratory Results - last 24 hr 06/03/24 06/03/24 06/03/24 07:36 10:44 10:51 Anion Gap 16 Estim Creat Clear Calc 53.1 Estimated GFR > 60 POC Glucose 86 Random Glucose 94 Calcium 8.2 L Stl C. cayetanensis PCR Cancelled Stool Rotavirus A PCR Cancelled Stl Adenov F 40/41 PCR Cancelled Stool Astrovirus (PCR) Cancelled Stool Campylobacter PCR Cancelled Stool Cryptosporidium PCR Cancelled Stl Sh Tox Pr E STEC PCR Cancelled Stool E coli O157 PCR Cancelled Stl Enterotoxigenic E PCR Cancelled Stool EPEC (PCR) Cancelled Stool EAEC (PCR) Cancelled Stl E. histolytica PCR Cancelled Stool Giardia Lamblia PCR Cancelled Stl P. shigelloides PCR Cancelled Stool Salmonella PCR Cancelled Stool Sapovirus (PCR) Cancelled Stl Shigella/EIEC PCR Cancelled St Y.enterocolitica PCR Cancelled Stool Vibrio (PCR) Cancelled Stl Vibrio cholerae PCR Cancelled Stl Norovirus GI/GII PCR Cancelled C. difficile Tox B Gene NEGATIVE 06/03/24 06/03/24 06/03/24 13:52 14:17 14:36 Anion Gap Estim Creat Clear Calc Estimated GFR POC Glucose 57 L* 68 Random Glucose Calcium Stl C. cayetanensis PCR Not Detected Stool Rotavirus A PCR Not Detected Stl Adenov F 40/41 PCR Not Detected Stool Astrovirus (PCR) Not Detected Stool Campylobacter PCR Not Detected Stool Cryptosporidium PCR Not Detected Stl Sh Tox Pr E STEC PCR Not Detected Stool E coli O157 PCR Not applicable Stl Enterotoxigenic E PCR Not Detected Stool EPEC (PCR) Not Detected Stool EAEC (PCR) Not Detected Stl E. histolytica PCR Not Detected Stool Giardia Lamblia PCR Not Detected Stl P. shigelloides PCR Not Detected Stool Salmonella PCR Not Detected Stool Sapovirus (PCR) Not Detected Stl Shigella/EIEC PCR Not Detected St Y.enterocolitica PCR Not Detected Stool Vibrio (PCR) Not Detected Stl Vibrio cholerae PCR Not Detected Stl Norovirus GI/GII PCR Not Detected C. difficile Tox B Gene 06/03/24 06/03/24 06/04/24 17:37 22:11 05:00 Anion Gap Estim Creat Clear Calc Estimated GFR POC Glucose 120 H 94 110 Random Glucose Calcium Stl C. cayetanensis PCR Stool Rotavirus A PCR Stl Adenov F /41 PCR Stool Astrovirus (PCR) Stool Campylobacter PCR Stool Cryptosporidium PCR Stl Sh Tox Pr E STEC PCR Stool E coli O157 PCR Stl Enterotoxigenic E PCR Stool EPEC (PCR) Stool EAEC (PCR) Stl E. histolytica PCR Stool Giardia Lamblia PCR Stl P. shigelloides PCR Stool Salmonella PCR Stool Sapovirus (PCR) Stl Shigella/EIEC PCR St Y.enterocolitica PCR Stool Vibrio (PCR) Stl Vibrio cholerae PCR Stl Norovirus GI/GII PCR C. difficile Tox B Gene Assessment and Plan (1) Diarrhea: Status: Acute (2) Hypoglycemia: Status: Acute Plan A/P 73 yo F with lupus who presents for her 3rd admission for on-going diarrhea resulting in hypotension and dehydration, metabolic acidosis Acute on chronic diarrhea -negative cdid -stool panel negative -imodirum prn -Seen by gi with the following - Low residue diet as tolerated - IVF and electrolyte replacement as needed - pls monitor K and Mg daily - Functional NET screening labs ordered as appears to be secretory diarrhea based on hx - Agree with DCing uSresho - Plan for EGD/colo tentatively on Wednesday 06/06 - CLD on 06/05 with goLYTELY to start that PM. Orders placed. - MRI abd pancreas protocol within the next 2-4 weeks, if not able to get done this admission hypoglycemia--chronic, -BS q6 -outpatient endo f/u -MR pancreatic protocol as outpatient -am coritisol pending metabolic acidosis d/t GI loss--better -Avoid NS--as can contribute hyperchloremic met acidosis -continue LR -Bicab replacement if persistently low mild peristent asthma--no exacerbation -PRN inhalers HTN--hypotension on presentation, BP now high -restart Coreg and Olmesartan Seasonal allergy--Claritin need for inpt: diarreha,dehydration, needing IVF and need for further testing with colonoscopy Quality Stroke Does the patient have a stroke diagnosis?: No VTE Prior VTE?: No VTE Risk Level:: Medical - moderate - high VTE Device Contraindication: Treatment Not Indicated VTE Drug Contraindication: N/A - Med Ordered
[2024-06-04 08:00] VITALS: BP 164/79; PULSE 78; RESP 16; TEMP 36.6; O2SAT 97
[2024-06-04] MEDS: Enoxaparin Sodium 40 MG/0.4 ML SYRINGE SUBCUT (08:55)
[2024-06-04] MEDS: Ezetimibe 10 MG TABLET PO (08:55)
[2024-06-04] MEDS: Valsartan 160 MG TABLET PO (08:56)
[2024-06-04] MEDS: 0.9 % Sodium Chloride Flush 3 ML SYRINGE IVFLUSH (08:56)
[2024-06-04] MEDS: carvediloL 6.25 MG TABLET PO ×2 (08:56→19:54)
[2024-06-04 08:59] LABS: Anion Gap 14 (12-20); Blood Urea Nitrogen 3 mg/dL (9-16); Calcium 9.4 mg/dL (8.4-10.2); Carbon Dioxide 21 mmol/L (22-29); Chloride 110 mmol/L (96-108); Creatinine Clr Calc Pharmacy 62.8; Estimated Glomerular Filt Rate > 60; Glucose Random 105 mg/dL (60-115); Potassium 3.3 mmol/L (3.3-5.1); Sodium 142 mmol/L (135-145)
[2024-06-04 09:01] LABS: Magnesium 1.5 mg/dL (1.6-2.6)
[2024-06-04 09:02] LABS: Glucose Random 104 mg/dL (60-115)
[2024-06-04 09:14] LABS: Glucose, Whole Blood 96 mg/dL (60-115)
[2024-06-04 09:21] LABS: Insulin 2 uU/mL (2-29)
[2024-06-04] MEDS: Loratadine 10 MG TABLET PO (12:33)
[2024-06-04] MEDS: Loperamide HCl 2 MG CAPSULE PO ×2 (12:33→19:54)
[2024-06-04] MEDS: ondansetron HCL 4 MG/2 ML VIAL IVPUSH (15:30)
[2024-06-04 16:00] VITALS: BP 167/86; PULSE 75; RESP 16; TEMP 36.9
--- NOTE | 2024-06-04 16:19 | MHC.CM.PN ---
CM MET WITH PT AND DAUGHTER AT BEDSIDE PT LIVES WITH HER AND IS INDEPENDENT WITH CARE NO DME OR SERVICES SHE SAYS SHE HAS A HCP, COPY REQUESTED PCP: CARMEN AKINS DCP: HOME NO SERVICES VIA PRIVATE TRANSPORT
[2024-06-04 17:36] LABS: Glucose, Whole Blood 100 mg/dL (60-115)
[2024-06-04 18:55] VITALS: BP 195/93; PULSE 79; RESP 18; TEMP 36; O2SAT 98
[2024-06-04] MEDS: Montelukast Sodium 10 MG TABLET PO (19:54)
[2024-06-04 20:45] LABS: Glucose, Whole Blood 101 mg/dL (60-115)
[2024-06-05] MEDS: carisoprodoL 350 MG TABLET PO (00:08)
[2024-06-05] MEDS: Melatonin 3 MG TABLET 6 MG PO (00:10)
[2024-06-05] MEDS: ondansetron HCL 4 MG/2 ML VIAL IVPUSH ×3 (00:14→16:03)
[2024-06-05 03:15] VITALS: BP 142/67; PULSE 75; RESP 17; TEMP 36.5; O2SAT 96
[2024-06-05 05:11] LABS: Glucose, Whole Blood 123 mg/dL (60-115)
[2024-06-05] MEDS: Omeprazole 20 MG CAPSULE.DR PO ×2 (06:11→16:03)
[2024-06-05] MEDS: Dextrose 5 % and Lactated Ring 1,000 ML 100 ML IVCONT (06:13)
[2024-06-05 07:22] LABS: Glucose, Whole Blood 127 mg/dL (60-115)
[2024-06-05 08:00] VITALS: BP 145/72; PULSE 75; RESP 14; TEMP 36.1; O2SAT 98
[2024-06-05] MEDS: Ezetimibe 10 MG TABLET PO (09:07)
[2024-06-05] MEDS: Enoxaparin Sodium 40 MG/0.4 ML SYRINGE SUBCUT (09:07)
[2024-06-05] MEDS: Valsartan 160 MG TABLET PO (09:08)
[2024-06-05] MEDS: carvediloL 6.25 MG TABLET PO (09:09)
[2024-06-05] MEDS: Loratadine 10 MG TABLET PO (09:09)
--- NOTE | 2024-06-05 09:35 | P.PNIM_ITS ---
Subjective Subjective Date of Service: 06/05/24 Interval History: f/u on diarrhea, hypotension, metabolic acidosis no abd pain, still with diarrea, no hypoglycemia Physical Exam 2 Vital Signs: Vital Signs: Last Vital Signs Temp 96.9 F 06/05/24 08:00 Pulse 75 06/05/24 08:00 Resp 14 06/05/24 08:00 BP 145/72 H 06/05/24 08:00 Pulse Ox 98 06/05/24 08:00 O2 Del Method Room Air 06/05/24 08:00 BMI result Body Mass Index 21.3 Const: Other: General: AO X 3, no acute distress Resp: CTA bilateral CVS: S1,S2,RRR GI: +BS, NT, no distention Skin: No rash Neuro: motor grossly intact Psych: appropriate affect Objective Data Active Medications Acetaminophen (Acetaminophen 325 Mg Tablet) 650 mg PO Q6H PRN PRN Reason: Pain, Mild (Pain Scale 1-3), fever or headache Albuterol Sulfate (Albuterol Sulfate 90 Mcg 8 Gm Inhaler) 2 puff INHALE Q6H PRN PRN Reason: Shortness Of Breath Calcium Carbonate (Calcium Carbonate 750 Mg Tab.Chew) 750 mg PO Q4H PRN PRN Reason: Heartburn Carisoprodol (Carisoprodol 350 Mg Tablet) 350 mg PO BEDTIME [facility] Last Admin: 06/05/24 00:08 Dose: 350 mg Documented By: RENEE Carvedilol (Carvedilol 6.25 Mg Tablet) 6.25 mg PO BID [facility]; Protocol Last Admin: 06/05/24 09:09 Dose: 6.25 mg Documented By: BARBARA Ezetimibe (Ezetimibe 10 Mg Tablet) 10 mg PO DAILY [facility] Last Admin: 06/05/24 09:07 Dose: 10 mg Documented By: BARBARA Enoxaparin Sodium (Enoxaparin Sodium 40 Mg/0.4 Ml Syringe) 40 mg SUBCUT Q24H [facility] Last Admin: 06/05/24 09:07 Dose: 40 mg Documented By: BARBARA Glucose (Glucose Gel 15 Gm Gel..Gram.) 15 gm PO Q15M PRN; Protocol PRN Reason: per Hypoglycemia Standing Ord. Dextrose (D10) 250 mls @ 750 mls/hr IV Q15M PRN; Protocol PRN Reason: per Hypoglycemia Standing Ord. Dextrose/Lactated Ringer's (D5lr) 1,000 mls @ 100 mls/hr IVCONT .Q10H [facility] Last Admin: 06/05/24 06:13 Dose: 100 mls/hr Documented By: RENEE Loperamide HCl (Loperamide Hcl 2 Mg Capsule) 2 mg PO Q6H PRN PRN Reason: Diarrhea Last Admin: 06/04/24 19:54 Dose: 2 mg Documented By: RENEE Loratadine (Loratadine 10 Mg Tablet) 10 mg PO DAILY [facility] Last Admin: 06/05/24 09:09 Dose: 10 mg Documented By: BARBARA Magnesium Hydroxide (Milk Of Magnesia 30 Ml Oral.Susp) 30 ml PO DAILY PRN PRN Reason: Constipation Melatonin (Melatonin 3 Mg Tablet) 6 mg PO BEDTIME PRN PRN Reason: Insomnia Last Admin: 06/05/24 00:10 Dose: 6 mg Documented By: RENEE Montelukast Sodium (Montelukast Sodium 10 Mg Tablet) 10 mg PO BEDTIME [facility] Last Admin: 06/04/24 19:54 Dose: 10 mg Documented By: RENEE Omeprazole (Omeprazole 20 Mg Capsule.) 20 mg PO BID@0630,1630 [facility] Last Admin: 06/05/24 06:11 Dose: 20 mg Documented By: RENEE Ondansetron HCl (Ondansetron Hcl 4 Mg/2 Ml Vial) 4 mg IVPUSH Q8H PRN PRN Reason: Nausea and Vomiting Last Admin: 06/05/24 09:19 Dose: 4 mg Documented By: BARBARA Propranolol HCl (Propranolol Hcl 10 Mg Tablet) 10 mg PO BEDTIME PRN; Protocol PRN Reason: anxiety Last Admin: 06/03/24 22:06 Dose: 10 mg Documented By: RENEE Sodium Chloride (0.9 % Sodium Chloride Flush 3 Ml Syringe) 3 ml IVFLUSH QSHIFT [facility] Last Admin: 06/05/24 09:29 Dose: Not Given Documented By: BARBARA Non-Admin Reason: IV Running Valsartan (Valsartan 160 Mg Tablet) 160 mg PO DAILY [facility] Last Admin: 06/05/24 09:08 Dose: 160 mg Documented By: BARBARA Labs 06/03/24 06:10 08/17/24 08:24 Labs: Laboratory Results - last 24 hr 06/04/24 06/04/24 06/05/24 17:14 20:37 05:07 POC Glucose 100 101 123 H 06/05/24 07:17 POC Glucose 127 H Assessment and Plan (1) Diarrhea: Status: Acute (2) Hypoglycemia: Status: Acute Plan 73 yo F with lupus who presents for her 3rd admission for on-going diarrhea resulting in hypotension and dehydration, metabolic acidosis Acute on chronic diarrhea -negative cdif -stool panel negative -imodirum prn -Seen by gi with the following: - Low residue diet as tolerated - IVF and electrolyte replacement as needed - pls monitor K and Mg daily - Functional NET screening labs ordered as appears to be secretory diarrhea based on hx - Agree with Estuardo Lee - Plan for EGD/colo tentatively on Wednesday 06/06 - CLD on 06/05 with goLYTELY to start that PM. Orders placed. - MRI abd pancreas protocol within the next 2-4 weeks, if not able to get done this admission hypoglycemia--chronic, resolved. -BS q6 -outpatient endo f/u -MR pancreatic protocol as outpatient -am coritisol was 4.9, checking random metabolic acidosis d/t GI loss--better -Avoid NS--as can contribute hyperchloremic met acidosis -continue LR -Bicab replacement if persistently low mild peristent asthma--no exacerbation -PRN inhalers HTN--hypotension on presentation, BP now high -restart Coreg and Olmesartan Seasonal allergy--Claritin need for inpt: diarreha,dehydration, needing IVF and need for further testing with colonoscopy Quality Stroke Does the patient have a stroke diagnosis?: No VTE Prior VTE?: No VTE Risk Level:: Medical - moderate - high VTE Device Contraindication: Treatment Not Indicated VTE Drug Contraindication: N/A - Med Ordered
[2024-06-05 10:49] LABS: Anion Gap 11 (12-20); Blood Urea Nitrogen < 3 mg/dL (9-16); Calcium 8.5 mg/dL (8.4-10.2); Carbon Dioxide 27 mmol/L (22-29); Chloride 110 mmol/L (96-108); Cortisol Random 6.8 ug/dL; Creatinine Clr Calc Pharmacy 62.8; Estimated Glomerular Filt Rate > 60; Glucose Random 118 mg/dL (60-115); Sodium 145 mmol/L (135-145)
[2024-06-05] MEDS: Magnesium Sulfate/H2O 2 GM/50 ML PIGGYBACK IV ×2 (11:27→13:47)
[2024-06-05] MEDS: Potassium Chloride Packet 20 MEQ PACKET 40 MEQ PO ×2 (11:53→13:59)
[2024-06-05 12:19] LABS: Magnesium 1.3 mg/dL (1.6-2.6)
[2024-06-05 12:20] LABS: Potassium 2.9 mmol/L (3.3-5.1)
[2024-06-05 13:08] LABS: Glucose, Whole Blood 89 mg/dL (60-115)
[2024-06-05 15:55] VITALS: BP 180/80; PULSE 76; RESP 12; TEMP 36.3; O2SAT 95
[2024-06-05 15:58] LABS: Anion Gap 14 (12-20); Carbon Dioxide 23 mmol/L (22-29); Chloride 110 mmol/L (96-108); Magnesium 2.6 mg/dL (1.6-2.6); Phosphorus 2.8 mg/dL (2.7-4.5); Potassium 3.3 mmol/L (3.3-5.1); Sodium 144 mmol/L (135-145)
[2024-06-05 16:12] VITALS: BP 180/80
[2024-06-05] MEDS: Propranolol HCL 10 MG TABLET PO (16:12)
[2024-06-05] MEDS: PEG 3350/Na Sulf,Bicarb,Cl/KCL 4,000 ML SOLN.RECON 4000 ML PO (17:07)
[2024-06-05 20:00] VITALS: BP 141/79; PULSE 78; RESP 16; TEMP 36.3; O2SAT 97
[2024-06-05 20:37] LABS: Glucose, Whole Blood 71 mg/dL (60-115)
[2024-06-05] MEDS: Montelukast Sodium 10 MG TABLET PO (20:56)
[2024-06-05 23:39] LABS: Glucose, Whole Blood 70 mg/dL (60-115)
[2024-06-06] VITALS (10 sets, daily range): BP systolic 122–181; BP diastolic 58–91; PULSE 70–78; RESP 12–18; TEMP 36.1–37.4; O2SAT 96–100
[2024-06-06] MEDS: carvediloL 6.25 MG TABLET PO ×3 (00:08→20:14)
[2024-06-06] MEDS: Melatonin 3 MG TABLET 6 MG PO (00:08)
[2024-06-06] MEDS: carisoprodoL 350 MG TABLET PO (00:08)
[2024-06-06] MEDS: Dextrose 5 % and Lactated Ring 1,000 ML 100 ML IVCONT (00:11)
[2024-06-06] MEDS: 0.9 % Sodium Chloride Flush 3 ML SYRINGE IVFLUSH ×2 (00:11→20:23)
[2024-06-06 05:53] LABS: Glucose, Whole Blood 107 mg/dL (60-115)
[2024-06-06] MEDS: Omeprazole 20 MG CAPSULE.DR PO ×2 (05:55→17:44)
[2024-06-06 07:33] LABS: Anion Gap 10 (12-20); Blood Urea Nitrogen 3 mg/dL (9-16); Calcium 8.3 mg/dL (8.4-10.2); Carbon Dioxide 27 mmol/L (22-29); Chloride 107 mmol/L (96-108); Creatinine Clr Calc Pharmacy 70.6; Estimated Glomerular Filt Rate > 60; Glucose Random 107 mg/dL (60-115); Potassium 2.8 mmol/L (3.3-5.1); Sodium 141 mmol/L (135-145)
[2024-06-06 08:23] LABS: Glucose, Whole Blood 96 mg/dL (60-115)
[2024-06-06] MEDS: Valsartan 160 MG TABLET PO (08:29)
[2024-06-06] MEDS: Loratadine 10 MG TABLET PO (08:29)
[2024-06-06] MEDS: Ezetimibe 10 MG TABLET PO (08:30)
[2024-06-06] MEDS: Potassium Chloride/H20 10 MEQ/100 ML PIGGYBACK 100 MEQ IV ×2 (08:30→10:20)
--- NOTE | 2024-06-06 09:47 | HO.PM.IMPN ---
Subjective Subjective Date of Service: 06/06/24 Interval History: f/u on diarrhea, hypotension, metabolic acidosis no abd pain, still with diarrea, no hypoglycemia, Hypokalemia Physical Exam Vital Signs: Vital Signs: Last Vital Signs Temp 97.2 F 06/06/24 07:36 Pulse 70 06/06/24 07:36 Resp 12 06/06/24 07:36 BP 145/71 H 06/06/24 07:36 Pulse Ox 96 06/06/24 07:36 O2 Del Method Room Air 06/06/24 08:57 BMI result Body Mass Index 21.3 Objective Data Active Medications Acetaminophen (Acetaminophen 325 Mg Tablet) 650 mg PO Q6H PRN PRN Reason: Pain, Mild (Pain Scale 1-3), fever or headache Albuterol Sulfate (Albuterol Sulfate 90 Mcg 8 Gm Inhaler) 2 puff INHALE Q6H PRN PRN Reason: Shortness Of Breath Calcium Carbonate (Calcium Carbonate 750 Mg Tab.Chew) 750 mg PO Q4H PRN PRN Reason: Heartburn Carisoprodol (Carisoprodol 350 Mg Tablet) 350 mg PO BEDTIME [facility] [place] Last Admin: 06/06/24 00:08 Dose: 350 mg Documented By: JESSICA Carvedilol (Carvedilol 6.25 Mg Tablet) 6.25 mg PO BID [facility] [place]; Protocol Last Admin: 06/06/24 08:30 Dose: 6.25 mg Documented By: JUDY Ezetimibe (Ezetimibe 10 Mg Tablet) 10 mg PO DAILY [facility] [place] Last Admin: 06/06/24 08:30 Dose: 10 mg Documented By: JUDY Enoxaparin Sodium (Enoxaparin Sodium 40 Mg/0.4 Ml Syringe) 40 mg SUBCUT Q24H [facility] [place] Last Admin: 06/06/24 08:30 Dose: Not Given Documented By: JUDY Non-Admin Reason: preop Glucose (Glucose Gel 15 Gm Gel..Gram.) 15 gm PO Q15M PRN; Protocol PRN Reason: per Hypoglycemia Standing Ord. Dextrose (D10) 250 mls @ 750 mls/hr IV Q15M PRN; Protocol PRN Reason: per Hypoglycemia Standing Ord. Dextrose/Lactated Ringer's (D5lr) 1,000 mls @ 100 mls/hr IVCONT .Q10H [facility] [place] Last Admin: 06/06/24 00:11 Dose: 100 mls/hr Documented By: JESSICA Loperamide HCl (Loperamide Hcl 2 Mg Capsule) 2 mg PO Q6H PRN PRN Reason: Diarrhea Last Admin: 06/04/24 19:54 Dose: 2 mg Documented By: RENEE Loratadine (Loratadine 10 Mg Tablet) 10 mg PO DAILY [facility] [place] Last Admin: 06/06/24 08:29 Dose: 10 mg Documented By: JUDY Magnesium Hydroxide (Milk Of Magnesia 30 Ml Oral.Susp) 30 ml PO DAILY PRN PRN Reason: Constipation Melatonin (Melatonin 3 Mg Tablet) 6 mg PO BEDTIME PRN PRN Reason: Insomnia Last Admin: 06/06/24 00:08 Dose: 6 mg Documented By: JESSICA Montelukast Sodium (Montelukast Sodium 10 Mg Tablet) 10 mg PO BEDTIME [facility] [place] Last Admin: 06/05/24 20:56 Dose: 10 mg Documented By: JESSICA Omeprazole (Omeprazole 20 Mg Capsule.) 20 mg PO BID@0630,1630 [facility] [place] Last Admin: 06/06/24 05:55 Dose: 20 mg Documented By: JESSICA Ondansetron HCl (Ondansetron Hcl 4 Mg/2 Ml Vial) 4 mg IVPUSH Q6H PRN PRN Reason: Nausea and Vomiting Last Admin: 06/05/24 16:03 Dose: 4 mg Documented By: BARBARA Potassium Chloride (Potassium Chloride Er 20 Meq Tab.Er.Prt) 40 meq PO ONCE ONE Stop: 06/06/24 09:36 Propranolol HCl (Propranolol Hcl 10 Mg Tablet) 10 mg PO BEDTIME PRN; Protocol PRN Reason: anxiety Last Admin: 06/05/24 16:12 Dose: 10 mg Documented By: BARBARA Sodium Chloride (0.9 % Sodium Chloride Flush 3 Ml Syringe) 3 ml IVFLUSH QSHIFT [facility] [place] Last Admin: 06/06/24 08:31 Dose: Not Given Documented By: JUDY Non-Admin Reason: IV Running Valsartan (Valsartan 160 Mg Tablet) 160 mg PO DAILY [facility] [place] Last Admin: 06/06/24 08:29 Dose: 160 mg Documented By: JUDY Labs 06/03/24 06:10 06/06/24 05:31 Labs: Laboratory Results - last 24 hr 06/05/24 06/05/24 06/05/24 10:05 13:02 15:34 Anion Gap 11 L 14 Estim Creat Clear Calc 62.8 Estimated GFR > 60 POC Glucose 89 Random Glucose 118 H Calcium 8.5 D Phosphorus 2.8 Magnesium 1.3 L* 2.6 Random Cortisol 6.8 06/05/24 06/05/24 06/06/24 20:31 23:34 05:31 Anion Gap 10 L Estim Creat Clear Calc 70.6 Estimated GFR > 60 POC Glucose 71 70 Random Glucose 107 Calcium 8.3 L Phosphorus Magnesium 2.0 Random Cortisol 06/06/24 06/06/24 05:47 08:16 Anion Gap Estim Creat Clear Calc Estimated GFR POC Glucose 107 96 Random Glucose Calcium Phosphorus Magnesium Random Cortisol Assessment and Plan (1) Diarrhea: Status: Acute (2) Hypoglycemia: Status: Acute Plan 73 yo F with lupus who presents for her 3rd admission for on-going diarrhea resulting in hypotension and dehydration, metabolic acidosis Acute on chronic diarrhea -negative cdif -stool panel negative -imodirum prn -Seen by gi with the following: - Low residue diet as tolerated - IVF and electrolyte replacement as needed - pls monitor K and Mg daily - Functional NET screening labs ordered as appears to be secretory diarrhea based on hx - Agree with Estuardo Lee - Plan for EGD/colo tentatively on today 06/06 - CLD on 06/05 with goLYTELY to start that PM. Orders placed. - MRI abd pancreas protocol within the next 2-4 weeks, if not able to get done this admission hypoglycemia--chronic, resolved. -BS q6 -outpatient endo f/u -MR pancreatic protocol as outpatient -am coritisol was 4.9, checking random after 10 6,8 Hypokalemia--2.8, GI loss. replace with PO and IV K metabolic acidosis d/t GI loss--resolved -Avoid NS--as can contribute hyperchloremic met acidosis -continue LR mild peristent asthma--no exacerbation -PRN inhalers HTN--hypotension on presentation, BP now high -restart Coreg and Olmesartan Seasonal allergy--Claritin need for inpt: diarreha,dehydration, needing IVF and need for further testing with colonoscopy Quality Stroke Does the patient have a stroke diagnosis?: No VTE Prior VTE?: No VTE Risk Level:: Medical - moderate - high VTE Device Contraindication: Treatment Not Indicated VTE Drug Contraindication: N/A - Med Ordered
[2024-06-06] MEDS: Potassium Chloride ER 20 MEQ TAB.ER.PRT 40 MEQ PO (10:17)
[2024-06-06 12:04] LABS: Glucose, Whole Blood 93 mg/dL (60-115)
--- NOTE | 2024-06-06 14:16 | MHC.CM.PN ---
EMR REVIEWED AND PER MD ROUNDS, PT IS NOT MEDICALLY CLEARED FOR DC (WILL HAVE EGD/COLONOSCOPY TODAY) CM WILL CONTINUE TO FOLLOW FOR ANY CHANGE TO DC PLAN/NEEDS
--- NOTE | 2024-06-06 14:18 | PC.NURSE ---
anes made aware of k=2.8. replaced with po 40meq and 10meq 1v x2. ok'd to proceed
[2024-06-06 14:44] LABS: Anion Gap 11 (12-20); Blood Urea Nitrogen 3 mg/dL (9-16); Calcium 8.7 mg/dL (8.4-10.2); Carbon Dioxide 27 mmol/L (22-29); Chloride 107 mmol/L (96-108); Creatinine Clr Calc Pharmacy 64.9; Estimated Glomerular Filt Rate > 60; Glucose Random 106 mg/dL (60-115); Sodium 141 mmol/L (135-145)
[2024-06-06 14:54] LABS: Potassium 3.9 mmol/L (3.3-5.1)
--- NOTE | 2024-06-06 14:58 | P.CONAN_ITS ---
[facility] Active Problems Active Problems: All Active Problems (Updated 06/03/24 @ 01:49 by Ramy Brunner MD) Diarrhea (Acute) Hypoglycemia (Acute) Acute gastroenteritis (Acute) Colon cancer screening (Acute) Past Medical History Medical History Hypertension Mitral valve prolapse Lupus GERD (gastroesophageal reflux disease) COVID-19 long hauler Hypoglycemia Asthma Hyperlipidemia Fibromyalgia Family History Family history of problems with anesthesia: No Surgical History History of Problems with Anesthesia: No Social History Social History Household Members: Spouse Housing: House Do you presently have visiting nurse or other home services: No Alcohol intake: never Comment: pt. refusing bed alarm . Patient Tobacco Use Status: Never used Tobacco e-Cigarette/Vaping Use: Never Used Second Hand Smoke Exposure: No Advance Directives Date on File: 06/08/23 service: No Meds Allergies Allergy/AdvReac Type Severity Reaction Status Date / Time acetaminophen [From TYLENOL] Allergy Intermediate ITCHING Verified 06/02/24 19:21 epinephrine [EPINEPHRINE] Allergy Intermediate TACHYCARDIA Verified 06/02/24 19: 21 iodine [IODINE] Allergy Intermediate RASH Verified 06/02/24 19:21 Penicillins [PENICILLINS] Allergy Intermediate ITCHING/HIV Verified 06/02/24 19:21 ES Sulfa (Sulfonamide Allergy Intermediate NAUSEA Verified 06/02/24 19:21 Antibiotics) [SULFA (SULFONAMIDE ANTIBIOTICS)] egg [EGG] Allergy Mild SENSITIVITY Verified 06/02/24 19:21 diclofenac [DICLOFENAC] Allergy Unknown HIVES Verified 06/02/24 19:21 levofloxacin [From LEVAQUIN] Allergy Unknown SEVERE Verified 06/02/24 19:21 ITCHING meperidine [Demerol] Allergy Unknown Rash Verified 06/02/24 19:21 penicillin V Allergy Unknown Rash Verified 06/02/24 19:21 procaine [From NOVOCAIN] Allergy Unknown UNKNOWN Verified 06/02/24 19:21 doxycycline AdvReac Stomach Verified 06/02/24 19:21 Upset SHELLFISH Allergy Severe ANAPHYLAXIS Uncoded 05/25/24 23:58 eggs Allergy Unknown Rash Uncoded 05/25/24 23:58 Novocain Allergy Unknown Rash Uncoded 05/25/24 23:58 From DEMEROL AdvReac Intermediate HYPOTENSION Uncoded 05/25/24 23:58 Active Medications: Current Medications Acetaminophen (Acetaminophen 325 Mg Tablet) 650 mg PO Q6H PRN PRN Reason: Pain, Mild (Pain Scale 1-3), fever or headache Albuterol Sulfate (Albuterol Sulfate 90 Mcg 8 Gm Inhaler) 2 puff INHALE Q6H PRN PRN Reason: Shortness Of Breath Calcium Carbonate (Calcium Carbonate 750 Mg Tab.Chew) 750 mg PO Q4H PRN PRN Reason: Heartburn Carisoprodol (Carisoprodol 350 Mg Tablet) 350 mg PO BEDTIME [facility] Last Admin: 06/06/24 00:08 Dose: 350 mg Carvedilol (Carvedilol 6.25 Mg Tablet) 6.25 mg PO BID [facility]; Protocol Last Admin: 06/06/24 08:30 Dose: 6.25 mg Ezetimibe (Ezetimibe 10 Mg Tablet) 10 mg PO DAILY [facility] Last Admin: 06/06/24 08:30 Dose: 10 mg Enoxaparin Sodium (Enoxaparin Sodium 40 Mg/0.4 Ml Syringe) 40 mg SUBCUT Q24H [facility] Last Admin: 06/06/24 08:30 Dose: Not Given Glucose (Glucose Gel 15 Gm Gel..Gram.) 15 gm PO Q15M PRN; Protocol PRN Reason: per Hypoglycemia Standing Ord. Dextrose (D10) 250 mls @ 750 mls/hr IV Q15M PRN; Protocol PRN Reason: per Hypoglycemia Standing Ord. Dextrose/Lactated Ringer's (D5lr) 1,000 mls @ 100 mls/hr IVCONT .Q10H [facility] Last Admin: 06/06/24 12:04 Dose: Not Given Loperamide HCl (Loperamide Hcl 2 Mg Capsule) 2 mg PO Q6H PRN PRN Reason: Diarrhea Last Admin: 06/04/24 19:54 Dose: 2 mg Loratadine (Loratadine 10 Mg Tablet) 10 mg PO DAILY [facility] Last Admin: 06/06/24 08:29 Dose: 10 mg Magnesium Hydroxide (Milk Of Magnesia 30 Ml Oral.Susp) 30 ml PO DAILY PRN PRN Reason: Constipation Melatonin (Melatonin 3 Mg Tablet) 6 mg PO BEDTIME PRN PRN Reason: Insomnia Last Admin: 06/06/24 00:08 Dose: 6 mg Montelukast Sodium (Montelukast Sodium 10 Mg Tablet) 10 mg PO BEDTIME [facility] Last Admin: 06/05/24 20:56 Dose: 10 mg Omeprazole (Omeprazole 20 Mg Capsule.Dr) 20 mg PO BID@0630,1630 [facility] Last Admin: 06/06/24 05:55 Dose: 20 mg Ondansetron HCl (Ondansetron Hcl 4 Mg/2 Ml Vial) 4 mg IVPUSH Q6H PRN PRN Reason: Nausea and Vomiting Last Admin: 06/05/24 16:03 Dose: 4 mg Propranolol HCl (Propranolol Hcl 10 Mg Tablet) 10 mg PO BEDTIME PRN; Protocol PRN Reason: anxiety Last Admin: 06/05/24 16:12 Dose: 10 mg Sodium Chloride (0.9 % Sodium Chloride Flush 3 Ml Syringe) 3 ml IVFLUSH QSHIFT [facility] Last Admin: 06/06/24 08:31 Dose: Not Given Valsartan (Valsartan 160 Mg Tablet) 160 mg PO DAILY [facility] Last Admin: 06/06/24 08:29 Dose: 160 mg Home Medications ?Medication ?Instructions ?Recorded ?Confirmed ?Last Taken ?Type albuterol sulfate 90 mcg/actuation 2 puff inhalation Q6H PRN 06/07/23 06/03/24 06/01/24 History aerosol inhaler Shortness Of Breath carisoprodol 350 mg tablet 350 mg PO BEDTIME 06/07/23 06/03/24 06/01/24 History carvedilol 6.25 mg tablet 6.25 mg PO BID 06/07/23 06/03/24 06/01/24 History ezetimibe 10 mg tablet 10 mg PO DAILY 06/07/23 06/03/24 06/01/24 History furosemide 20 mg tablet 20 mg PO DAILY PRN Salt levels 06/07/23 06/03/24 06/01/24 History inclisiran 284 mg/1.5 mL 284 mg subcut [id number] 06/07/23 06/03/24 6 Months Ago History subcutaneous syringe (Leqvio) ~11/13/23 mometasone 200 mcg/actuation HFA 2 puff inhalation DAILY 06/07/23 06/03/24 06/01/24 History aerosol inhaler (Asmanex HFA) montelukast 10 mg tablet 10 mg PO BEDTIME 06/07/23 06/03/24 06/01/24 History omeprazole 20 mg capsule,delayed 20 mg PO BID@0630,1630 06/07/23 06/03/24 06/01/24 History release cyclosporine 0.05 % eye drops in a 1 drp ophthalmic (eye) BID 05/13/24 06/03/24 06/01/24 History dropperette (Restasis) propranolol 10 mg tablet 10 mg PO BEDTIME PRN anxiety 05/13/24 06/03/24 06/01/24 History melatonin 10 mg tablet 10 mg PO BEDTIME 05/21/24 06/03/24 06/01/24 History olmesartan 40 mg tablet 40 mg PO DAILY 05/21/24 06/03/24 06/01/24 History Exam Height,Weight and Vital Signs: Height 5 ft 2 in Weight 52.8 kg Last Vital Signs Temp 99.3 F 06/06/24 14:51 Pulse 72 06/06/24 14:51 Resp 14 06/06/24 14:51 BP 181/89 H 06/06/24 14:51 Pulse Ox 99 06/06/24 14:51 O2 Del Method Room Air 06/06/24 14:51 Pertinent Lab Results Pertinent Lab Results: Laboratory Tests 06/02/24 06/02/24 06/02/24 21:13 21:15 22:13 WBC 5.2 RBC 5.32 Hgb 14.5 Hct 45.6 MCV 85.7 MCH 27.3 MCHC 31.8 RDW 14.0 Plt Count 209 MPV 10.3 Immature Gran % (Auto) 0.6 H Neut % (Auto) 62.6 Lymph % (Auto) 25.6 [place] % (Auto) 9.6 Eos % (Auto) 1.0 Baso % (Auto) 0.6 Lymph # (Auto) 1.3 [place] # (Auto) 0.5 Eos # (Auto) 0.1 Baso # (Auto) 0.0 Abs Immat Gran (auto) 0.03 Absolute Neuts (auto) 3.3 Absolute Nucleated RBC 0.000 Nucleated RBC % (auto) 0.0 Sodium 137 Potassium 4.5 D Chloride 107 Carbon Dioxide 12 L Anion Gap 23 H BUN 13 Creatinine 0.84 Estim Creat Clear Calc 46.8 Estimated GFR > 60 POC Glucose 46 L* Random Glucose 56 L* Insulin Level Lactic Acid 1.2 Calcium 9.6 Phosphorus Magnesium Total Bilirubin 0.3 AST 211 H ALT 181 H Alkaline Phosphatase 83 Total Protein 6.4 L Albumin 3.8 TSH 1.71 Random Cortisol Stl C. cayetanensis PCR Stool Rotavirus A PCR Stl Adenov F 40/41 PCR Stool Astrovirus (PCR) Stool Campylobacter PCR Stool Cryptosporidium PCR Stl Sh Tox Pr E STEC PCR Stool E coli O157 PCR Stl Enterotoxigenic E PCR Stool EPEC (PCR) Stool EAEC (PCR) Stl E. histolytica PCR Stool Giardia Lamblia PCR Stl P. shigelloides PCR Stool Salmonella PCR Stool Sapovirus (PCR) Stl Shigella/EIEC PCR St Y.enterocolitica PCR Stool Vibrio (PCR) Stl Vibrio cholerae PCR Stl Norovirus GI/GII PCR C. difficile Tox B Gene 06/02/24 06/02/24 06/03/24 22:52 23:47 03:24 WBC RBC Hgb Hct MCV MCH MCHC RDW Plt Count MPV Immature Gran % (Auto) Neut % (Auto) Lymph % (Auto) [place] % (Auto) Eos % (Auto) Baso % (Auto) Lymph # (Auto) [place] # (Auto) Eos # (Auto) Baso # (Auto) Abs Immat Gran (auto) Absolute Neuts (auto) Absolute Nucleated RBC Nucleated RBC % (auto) Sodium Potassium Chloride Carbon Dioxide Anion Gap BUN Creatinine Estim Creat Clear Calc Estimated GFR POC Glucose 57 L* 86 124 H Random Glucose Insulin Level Lactic Acid Calcium Phosphorus Magnesium Total Bilirubin AST ALT Alkaline Phosphatase Total Protein Albumin TSH Random Cortisol Stl C. cayetanensis PCR Stool Rotavirus A PCR Stl Adenov F 40 PCR Stool Astrovirus (PCR) Stool Campylobacter PCR Stool Cryptosporidium PCR Stl Sh Tox Pr E STEC PCR Stool E coli O157 PCR Stl Enterotoxigenic E PCR Stool EPEC (PCR) Stool EAEC (PCR) Stl E. histolytica PCR Stool Giardia Lamblia PCR Stl P. shigelloides PCR Stool Salmonella PCR Stool Sapovirus (PCR) Stl Shigella/EIEC PCR St Y.enterocolitica PCR Stool Vibrio (PCR) Stl Vibrio cholerae PCR Stl Norovirus GI/GII PCR C. difficile Tox B Gene 06/03/24 06/03/24 06/03/24 06:10 07:02 07:36 WBC 4.0 L RBC 4.35 Hgb 11.9 L Hct 36.6 L MCV 84.1 MCH 27.4 MCHC 32.5 RDW 13.8 Plt Count 198 MPV 10.6 Immature Gran % (Auto) 0.3 Neut % (Auto) 60.1 Lymph % (Auto) 27.5 [place] % (Auto) 10.6 Eos % (Auto) 1.0 Baso % (Auto) 0.5 Lymph # (Auto) 1.1 L [place] # (Auto) 0.4 Eos # (Auto) 0.0 Baso # (Auto) 0.0 Abs Immat Gran (auto) 0.01 Absolute Neuts (auto) 2.4 Absolute Nucleated RBC 0.000 Nucleated RBC % (auto) 0.0 Sodium 139 Potassium 3.6 Chloride 113 H Carbon Dioxide 15 L Anion Gap 15 BUN 9 Creatinine 0.72 Estim Creat Clear Calc 54.6 Estimated GFR > 60 POC Glucose 155 H Random Glucose 168 H Insulin Level Lactic Acid Calcium 8.0 L D Phosphorus Magnesium Total Bilirubin AST ALT Alkaline Phosphatase Total Protein Albumin TSH Random Cortisol 4.9 Stl C. cayetanensis PCR Cancelled Stool Rotavirus A PCR Cancelled Stl Adenov F 40/41 PCR Cancelled Stool Astrovirus (PCR) Cancelled Stool Campylobacter PCR Cancelled Stool Cryptosporidium PCR Cancelled Stl Sh Tox Pr E STEC PCR Cancelled Stool E coli O157 PCR Cancelled Stl Enterotoxigenic E PCR Cancelled Stool EPEC (PCR) Cancelled Stool EAEC (PCR) Cancelled Stl E. histolytica PCR Cancelled Stool Giardia Lamblia PCR Cancelled Stl P. shigelloides PCR Cancelled Stool Salmonella PCR Cancelled Stool Sapovirus (PCR) Cancelled Stl Shigella/EIEC PCR Cancelled St Y.enterocolitica PCR Cancelled Stool Vibrio (PCR) Cancelled Stl Vibrio cholerae PCR Cancelled Stl Norovirus GI/GII PCR Cancelled C. difficile Tox B Gene NEGATIVE 06/03/24 06/03/24 06/03/24 10:44 10:51 13:52 WBC RBC Hgb Hct MCV MCH MCHC RDW Plt Count MPV Immature Gran % (Auto) Neut % (Auto) Lymph % (Auto) [place] % (Auto) Eos % (Auto) Baso % (Auto) Lymph # (Auto) [place] # (Auto) Eos # (Auto) Baso # (Auto) Abs Immat Gran (auto) Absolute Neuts (auto) Absolute Nucleated RBC Nucleated RBC % (auto) Sodium 141 Potassium 4.1 Chloride 114 H Carbon Dioxide 15 L Anion Gap 16 BUN 8 L Creatinine 0.74 Estim Creat Clear Calc 53.1 Estimated GFR > 60 POC Glucose 86 57 L* Random Glucose 94 Insulin Level Lactic Acid Calcium 8.2 L Phosphorus Magnesium Total Bilirubin AST ALT Alkaline Phosphatase Total Protein Albumin TSH Random Cortisol Stl C. cayetanensis PCR Stool Rotavirus A PCR Stl Adenov F / PCR Stool Astrovirus (PCR) Stool Campylobacter PCR Stool Cryptosporidium PCR Stl Sh Tox Pr E STEC PCR Stool E coli O157 PCR Stl Enterotoxigenic E PCR Stool EPEC (PCR) Stool EAEC (PCR) Stl E. histolytica PCR Stool Giardia Lamblia PCR Stl P. shigelloides PCR Stool Salmonella PCR Stool Sapovirus (PCR) Stl Shigella/EIEC PCR St Y.enterocolitica PCR Stool Vibrio (PCR) Stl Vibrio cholerae PCR Stl Norovirus GI/GII PCR C. difficile Tox B Gene 06/03/24 06/03/24 06/03/24 14:17 14:36 17:37 WBC RBC Hgb Hct MCV MCH MCHC RDW Plt Count MPV Immature Gran % (Auto) Neut % (Auto) Lymph % (Auto) [place] % (Auto) Eos % (Auto) Baso % (Auto) Lymph # (Auto) [place] # (Auto) Eos # (Auto) Baso # (Auto) Abs Immat Gran (auto) Absolute Neuts (auto) Absolute Nucleated RBC Nucleated RBC % (auto) Sodium Potassium Chloride Carbon Dioxide Anion Gap BUN Creatinine Estim Creat Clear Calc Estimated GFR POC Glucose 68 120 H Random Glucose Insulin Level Lactic Acid Calcium Phosphorus Magnesium Total Bilirubin AST ALT Alkaline Phosphatase Total Protein Albumin TSH Random Cortisol Stl C. cayetanensis PCR Not Detected Stool Rotavirus A PCR Not Detected Stl Adenov F 40/ PCR Not Detected Stool Astrovirus (PCR) Not Detected Stool Campylobacter PCR Not Detected Stool Cryptosporidium PCR Not Detected Stl Sh Tox Pr E STEC PCR Not Detected Stool E coli O157 PCR Not applicable Stl Enterotoxigenic E PCR Not Detected Stool EPEC (PCR) Not Detected Stool EAEC (PCR) Not Detected Stl E. histolytica PCR Not Detected Stool Giardia Lamblia PCR Not Detected Stl P. shigelloides PCR Not Detected Stool Salmonella PCR Not Detected Stool Sapovirus (PCR) Not Detected Stl Shigella/EIEC PCR Not Detected St Y.enterocolitica PCR Not Detected Stool Vibrio (PCR) Not Detected Stl Vibrio cholerae PCR Not Detected Stl Norovirus GI/GII PCR Not Detected C. difficile Tox B Gene 06/03/24 06/04/24 06/04/24 22:11 05:00 08:24 WBC RBC Hgb Hct MCV MCH MCHC RDW Plt Count MPV Immature Gran % (Auto) Neut % (Auto) Lymph % (Auto) [place] % (Auto) Eos % (Auto) Baso % (Auto) Lymph # (Auto) [place] # (Auto) Eos # (Auto) Baso # (Auto) Abs Immat Gran (auto) Absolute Neuts (auto) Absolute Nucleated RBC Nucleated RBC % (auto) Sodium 142 Potassium 3.3 Chloride 110 H Carbon Dioxide 21 L Anion Gap 14 BUN 3 L Creatinine 0.64 Estim Creat Clear Calc 62.8 Estimated GFR > 60 POC Glucose 94 110 Random Glucose 105 Insulin Level Lactic Acid Calcium Phosphorus Magnesium Total Bilirubin AST ALT Alkaline Phosphatase Total Protein Albumin TSH Random Cortisol Stl C. cayetanensis PCR Stool Rotavirus A PCR Stl Adenov F 40/41 PCR Stool Astrovirus (PCR) Stool Campylobacter PCR Stool Cryptosporidium PCR Stl Sh Tox Pr E STEC PCR Stool E coli O157 PCR Stl Enterotoxigenic E PCR Stool EPEC (PCR) Stool EAEC (PCR) Stl E. histolytica PCR Stool Giardia Lamblia PCR Stl P. shigelloides PCR Stool Salmonella PCR Stool Sapovirus (PCR) Stl Shigella/EIEC PCR St Y.enterocolitica PCR Stool Vibrio (PCR) Stl Vibrio cholerae PCR Stl Norovirus GI/GII PCR C. difficile Tox B Gene 06/04/24 06/04/24 06/04/24 08:24 08:56 17:14 WBC RBC Hgb Hct MCV MCH MCHC RDW Plt Count MPV Immature Gran % (Auto) Neut % (Auto) Lymph % (Auto) [place] % (Auto) Eos % (Auto) Baso % (Auto) Lymph # (Auto) [place] # (Auto) Eos # (Auto) Baso # (Auto) Abs Immat Gran (auto) Absolute Neuts (auto) Absolute Nucleated RBC Nucleated RBC % (auto) Sodium Potassium Chloride Carbon Dioxide Anion Gap BUN Creatinine Estim Creat Clear Calc Estimated GFR POC Glucose 96 100 Random Glucose 104 Insulin Level 2 Lactic Acid Calcium 9.4 D Phosphorus Magnesium 1.5 L Total Bilirubin AST ALT Alkaline Phosphatase Total Protein Albumin TSH Random Cortisol Stl C. cayetanensis PCR Stool Rotavirus A PCR Stl Adenov F 40 PCR Stool Astrovirus (PCR) Stool Campylobacter PCR Stool Cryptosporidium PCR Stl Sh Tox Pr E STEC PCR Stool E coli O157 PCR Stl Enterotoxigenic E PCR Stool EPEC (PCR) Stool EAEC (PCR) Stl E. histolytica PCR Stool Giardia Lamblia PCR Stl P. shigelloides PCR Stool Salmonella PCR Stool Sapovirus (PCR) Stl Shigella/EIEC PCR St Y.enterocolitica PCR Stool Vibrio (PCR) Stl Vibrio cholerae PCR Stl Norovirus GI/GII PCR C. difficile Tox B Gene 06/04/24 06/05/24 06/05/24 20:37 05:07 07:17 WBC RBC Hgb Hct MCV MCH MCHC RDW Plt Count MPV Immature Gran % (Auto) Neut % (Auto) Lymph % (Auto) [place] % (Auto) Eos % (Auto) Baso % (Auto) Lymph # (Auto) [place] # (Auto) Eos # (Auto) Baso # (Auto) Abs Immat Gran (auto) Absolute Neuts (auto) Absolute Nucleated RBC Nucleated RBC % (auto) Sodium Potassium Chloride Carbon Dioxide Anion Gap BUN Creatinine Estim Creat Clear Calc Estimated GFR POC Glucose 101 123 H 127 H Random Glucose Insulin Level Lactic Acid Calcium Phosphorus Magnesium Total Bilirubin AST ALT Alkaline Phosphatase Total Protein Albumin TSH Random Cortisol Stl C. cayetanensis PCR Stool Rotavirus A PCR Stl Adenov F PCR Stool Astrovirus (PCR) Stool Campylobacter PCR Stool Cryptosporidium PCR Stl Sh Tox Pr E STEC PCR Stool E coli O157 PCR Stl Enterotoxigenic E PCR Stool EPEC (PCR) Stool EAEC (PCR) Stl E. histolytica PCR Stool Giardia Lamblia PCR Stl P. shigelloides PCR Stool Salmonella PCR Stool Sapovirus (PCR) Stl Shigella/EIEC PCR St Y.enterocolitica PCR Stool Vibrio (PCR) Stl Vibrio cholerae PCR Stl Norovirus GI/GII PCR C. difficile Tox B Gene 06/05/24 06/05/24 06/05/24 10:05 13:02 15:34 WBC RBC Hgb Hct MCV MCH MCHC RDW Plt Count MPV Immature Gran % (Auto) Neut % (Auto) Lymph % (Auto) [place] % (Auto) Eos % (Auto) Baso % (Auto) Lymph # (Auto) [place] # (Auto) Eos # (Auto) Baso # (Auto) Abs Immat Gran (auto) Absolute Neuts (auto) Absolute Nucleated RBC Nucleated RBC % (auto) Sodium 145 144 Potassium 2.9 L* 3.3 Chloride 110 H 110 H Carbon Dioxide 27 23 Anion Gap 11 L 14 BUN < 3 L Creatinine 0.64 Estim Creat Clear Calc 62.8 Estimated GFR > 60 POC Glucose 89 Random Glucose 118 H Insulin Level Lactic Acid Calcium 8.5 D Phosphorus 2.8 Magnesium 1.3 L* 2.6 Total Bilirubin AST ALT Alkaline Phosphatase Total Protein Albumin TSH Random Cortisol 6.8 Stl C. cayetanensis PCR Stool Rotavirus A PCR Stl Adenov F 40/41 PCR Stool Astrovirus (PCR) Stool Campylobacter PCR Stool Cryptosporidium PCR Stl Sh Tox Pr E STEC PCR Stool E coli O157 PCR Stl Enterotoxigenic E PCR Stool EPEC (PCR) Stool EAEC (PCR) Stl E. histolytica PCR Stool Giardia Lamblia PCR Stl P. shigelloides PCR Stool Salmonella PCR Stool Sapovirus (PCR) Stl Shigella/EIEC PCR St Y.enterocolitica PCR Stool Vibrio (PCR) Stl Vibrio cholerae PCR Stl Norovirus GI/GII PCR C. difficile Tox B Gene 06/05/24 06/05/24 06/06/24 20:31 23:34 05:31 WBC RBC Hgb Hct MCV MCH MCHC RDW Plt Count MPV Immature Gran % (Auto) Neut % (Auto) Lymph % (Auto) [place] % (Auto) Eos % (Auto) Baso % (Auto) Lymph # (Auto) [place] # (Auto) Eos # (Auto) Baso # (Auto) Abs Immat Gran (auto) Absolute Neuts (auto) Absolute Nucleated RBC Nucleated RBC % (auto) Sodium 141 Potassium 2.8 L* Chloride 107 Carbon Dioxide 27 Anion Gap 10 L BUN 3 L Creatinine 0.57 Estim Creat Clear Calc 70.6 Estimated GFR > 60 POC Glucose 71 70 Random Glucose 107 Insulin Level Lactic Acid Calcium 8.3 L Phosphorus Magnesium 2.0 Total Bilirubin AST ALT Alkaline Phosphatase Total Protein Albumin TSH Random Cortisol Stl C. cayetanensis PCR Stool Rotavirus A PCR Stl Adenov F 40/41 PCR Stool Astrovirus (PCR) Stool Campylobacter PCR Stool Cryptosporidium PCR Stl Sh Tox Pr E STEC PCR Stool E coli O157 PCR Stl Enterotoxigenic E PCR Stool EPEC (PCR) Stool EAEC (PCR) Stl E. histolytica PCR Stool Giardia Lamblia PCR Stl P. shigelloides PCR Stool Salmonella PCR Stool Sapovirus (PCR) Stl Shigella/EIEC PCR St Y.enterocolitica PCR Stool Vibrio (PCR) Stl Vibrio cholerae PCR Stl Norovirus GI/GII PCR C. difficile Tox B Gene 06/06/24 06/06/24 06/06/24 05:47 08:16 12:00 WBC RBC Hgb Hct MCV MCH MCHC RDW Plt Count MPV Immature Gran % (Auto) Neut % (Auto) Lymph % (Auto) [place] % (Auto) Eos % (Auto) Baso % (Auto) Lymph # (Auto) [place] # (Auto) Eos # (Auto) Baso # (Auto) Abs Immat Gran (auto) Absolute Neuts (auto) Absolute Nucleated RBC Nucleated RBC % (auto) Sodium Potassium Chloride Carbon Dioxide Anion Gap BUN Creatinine Estim Creat Clear Calc Estimated GFR POC Glucose 107 96 93 Random Glucose Insulin Level Lactic Acid Calcium Phosphorus Magnesium Total Bilirubin AST ALT Alkaline Phosphatase Total Protein Albumin TSH Random Cortisol Stl C. cayetanensis PCR Stool Rotavirus A PCR Stl Adenov F 40 PCR Stool Astrovirus (PCR) Stool Campylobacter PCR Stool Cryptosporidium PCR Stl Sh Tox Pr E STEC PCR Stool E coli O157 PCR Stl Enterotoxigenic E PCR Stool EPEC (PCR) Stool EAEC (PCR) Stl E. histolytica PCR Stool Giardia Lamblia PCR Stl P. shigelloides PCR Stool Salmonella PCR Stool Sapovirus (PCR) Stl Shigella/EIEC PCR St Y.enterocolitica PCR Stool Vibrio (PCR) Stl Vibrio cholerae PCR Stl Norovirus GI/GII PCR C. difficile Tox B Gene 06/06/24 14:11 WBC RBC Hgb Hct MCV MCH MCHC RDW Plt Count MPV Immature Gran % (Auto) Neut % (Auto) Lymph % (Auto) [place] % (Auto) Eos % (Auto) Baso % (Auto) Lymph # (Auto) [place] # (Auto) Eos # (Auto) Baso # (Auto) Abs Immat Gran (auto) Absolute Neuts (auto) Absolute Nucleated RBC Nucleated RBC % (auto) Sodium 141 Potassium 3.9 D Chloride 107 Carbon Dioxide 27 Anion Gap 11 L BUN 3 L Creatinine 0.62 Estim Creat Clear Calc 64.9 Estimated GFR > 60 POC Glucose Random Glucose 106 Insulin Level Lactic Acid Calcium 8.7 Phosphorus Magnesium Total Bilirubin AST ALT Alkaline Phosphatase Total Protein Albumin TSH Random Cortisol Stl C. cayetanensis PCR Stool Rotavirus A PCR Stl Adenov F 40/41 PCR Stool Astrovirus (PCR) Stool Campylobacter PCR Stool Cryptosporidium PCR Stl Sh Tox Pr E STEC PCR Stool E coli O157 PCR Stl Enterotoxigenic E PCR Stool EPEC (PCR) Stool EAEC (PCR) Stl E. histolytica PCR Stool Giardia Lamblia PCR Stl P. shigelloides PCR Stool Salmonella PCR Stool Sapovirus (PCR) Stl Shigella/EIEC PCR St Y.enterocolitica PCR Stool Vibrio (PCR) Stl Vibrio cholerae PCR Stl Norovirus GI/GII PCR C. difficile Tox B Gene Airway Mallampati Class: II (one loose left upper) TM Dist: >3cm Neck ROM: Full Heart: rrr Lungs: cta Assessment and Plan Assessment Anesthesia Assessment: Anesthesia Plan Discussed and Chart Reviewed Final Anesthetic Review Family History of Problems with Anesthesia: No History of Problems with Anesthesia: No NPO: Yes ASA Class: III Final Preanesthetic Review: No Changes in Pt Med Stat, Meds/Allgs Chart Reviewed and Consent Obtained/Reviewed Patient Risk: Intermediate Procedure Risk: Intermediate Anesthetic Plan Anesthetic Plan: MAC: Disposition: Standard PACU
--- NOTE | 2024-06-06 15:59 | HO.ANESPROP2 ---
[facility] Active Problems Active Problems: All Active Problems Diarrhea (Acute) Hypoglycemia (Acute) Acute gastroenteritis (Acute) Colon cancer screening (Acute) Past Medical History Medical History Hypertension Mitral valve prolapse Lupus GERD (gastroesophageal reflux disease) COVID-19 long hauler Hypoglycemia Asthma Hyperlipidemia Fibromyalgia Family History Family history of problems with anesthesia: No Surgical History History of Problems with Anesthesia: No Social History Social History Household Members: Spouse Housing: House Do you presently have visiting nurse or other home services: No Alcohol intake: never Comment: pt. refusing bed alarm . Patient Tobacco Use Status: Never used Tobacco e-Cigarette/Vaping Use: Never Used Second Hand Smoke Exposure: No Advance Directives Date on File: 06/08/23 service: No Meds Allergies Allergy/AdvReac Type Severity Reaction Status Date / Time acetaminophen [From TYLENOL] Allergy Intermediate ITCHING Verified 06/02/24 19:21 epinephrine [EPINEPHRINE] Allergy Intermediate TACHYCARDIA Verified 06/02/24 19:21 iodine [IODINE] Allergy Intermediate RASH Verified 06/02/24 19:21 Penicillins [PENICILLINS] Allergy Intermediate ITCHING/HIV Verified 06/02/24 19:21 ES Sulfa (Sulfonamide Allergy Intermediate NAUSEA Verified 06/02/24 19:21 Antibiotics) [SULFA (SULFONAMIDE ANTIBIOTICS)] egg [EGG] Allergy Mild SENSITIVITY Verified 06/02/24 19:21 diclofenac [DICLOFENAC] Allergy Unknown HIVES Verified 06/02/24 19:21 levofloxacin [From LEVAQUIN] Allergy Unknown SEVERE Verified 06/02/24 19:21 ITCHING meperidine [Demerol] Allergy Unknown Rash Verified 06/02/24 19:21 penicillin V Allergy Unknown Rash Verified 06/02/24 19:21 procaine [From NOVOCAIN] Allergy Unknown UNKNOWN Verified 06/02/24 19:21 doxycycline AdvReac Stomach Verified 06/02/24 19:21 Upset SHELLFISH Allergy Severe ANAPHYLAXIS Uncoded 05/25/24 23:58 eggs Allergy Unknown Rash Uncoded 05/25/24 23:58 Novocain Allergy Unknown Rash Uncoded 05/25/24 23:58 From DEMEROL AdvReac Intermediate HYPOTENSION Uncoded 05/25/24 23:58 Active Medications: Current Medications Acetaminophen (Acetaminophen 325 Mg Tablet) 650 mg PO Q6H PRN PRN Reason: Pain, Mild (Pain Scale 1-3), fever or headache Albuterol Sulfate (Albuterol Sulfate 90 Mcg 8 Gm Inhaler) 2 puff INHALE Q6H PRN PRN Reason: Shortness Of Breath Calcium Carbonate (Calcium Carbonate 750 Mg Tab.Chew) 750 mg PO Q4H PRN PRN Reason: Heartburn Carisoprodol (Carisoprodol 350 Mg Tablet) 350 mg PO BEDTIME [facility] Last Admin: 06/06/24 00:08 Dose: 350 mg Carvedilol (Carvedilol 6.25 Mg Tablet) 6.25 mg PO BID [facility]; Protocol Last Admin: 06/06/24 08:30 Dose: 6.25 mg Ezetimibe (Ezetimibe 10 Mg Tablet) 10 mg PO DAILY [facility] Last Admin: 06/06/24 08:30 Dose: 10 mg Enoxaparin Sodium (Enoxaparin Sodium 40 Mg/0.4 Ml Syringe) 40 mg SUBCUT Q24H [facility] Last Admin: 06/06/24 08:30 Dose: Not Given Glucose (Glucose Gel 15 Gm Gel..Gram.) 15 gm PO Q15M PRN; Protocol PRN Reason: per Hypoglycemia Standing Ord. Dextrose (D10) 250 mls @ 750 mls/hr IV Q15M PRN; Protocol PRN Reason: per Hypoglycemia Standing Ord. Dextrose/Lactated Ringer's (D5lr) 1,000 mls @ 100 mls/hr IVCONT .Q10H [facility] Last Admin: 06/06/24 12:04 Dose: Not Given Loperamide HCl (Loperamide Hcl 2 Mg Capsule) 2 mg PO Q6H PRN PRN Reason: Diarrhea Last Admin: 06/04/24 19:54 Dose: 2 mg Loratadine (Loratadine 10 Mg Tablet) 10 mg PO DAILY [facility] Last Admin: 06/06/24 08:29 Dose: 10 mg Magnesium Hydroxide (Milk Of Magnesia 30 Ml Oral.Susp) 30 ml PO DAILY PRN PRN Reason: Constipation Melatonin (Melatonin 3 Mg Tablet) 6 mg PO BEDTIME PRN PRN Reason: Insomnia Last Admin: 06/06/24 00:08 Dose: 6 mg Montelukast Sodium (Montelukast Sodium 10 Mg Tablet) 10 mg PO BEDTIME [facility] Last Admin: 06/05/24 20:56 Dose: 10 mg Omeprazole (Omeprazole 20 Mg Capsule.Dr) 20 mg PO BID@0630,1630 [facility] Last Admin: 06/06/24 05:55 Dose: 20 mg Ondansetron HCl (Ondansetron Hcl 4 Mg/2 Ml Vial) 4 mg IVPUSH Q6H PRN PRN Reason: Nausea and Vomiting Last Admin: 06/05/24 16:03 Dose: 4 mg Propranolol HCl (Propranolol Hcl 10 Mg Tablet) 10 mg PO BEDTIME PRN; Protocol PRN Reason: anxiety Last Admin: 06/05/24 16:12 Dose: 10 mg Sodium Chloride (0.9 % Sodium Chloride Flush 3 Ml Syringe) 3 ml IVFLUSH QSHIFT [facility] Last Admin: 06/06/24 08:31 Dose: Not Given Valsartan (Valsartan 160 Mg Tablet) 160 mg PO DAILY [facility] Last Admin: 06/06/24 08:29 Dose: 160 mg Home Medications ?Medication ?Instructions ?Recorded ?Confirmed ?Last Taken ?Type albuterol sulfate 90 mcg/actuation 2 puff inhalation Q6H PRN 06/07/23 06/03/24 06/01/24 History aerosol inhaler Shortness Of Breath carisoprodol 350 mg tablet 350 mg PO BEDTIME 06/07/23 06/03/24 06/01/24 History carvedilol 6.25 mg tablet 6.25 mg PO BID 06/07/23 06/03/24 06/01/24 History ezetimibe 10 mg tablet 10 mg PO DAILY 06/07/23 06/03/24 06/01/24 History furosemide 20 mg tablet 20 mg PO DAILY PRN Salt levels 06/07/23 06/03/24 06/01/24 History inclisiran 284 mg/1.5 mL 284 mg subcut [id number] 06/07/23 06/03/24 6 Months Ago History subcutaneous syringe (Leqvio) ~11/13/23 mometasone 200 mcg/actuation HFA 2 puff inhalation DAILY 06/07/23 06/03/24 06/01/24 History aerosol inhaler (Asmanex HFA) montelukast 10 mg tablet 10 mg PO BEDTIME 06/07/23 06/03/24 06/01/24 History omeprazole 20 mg capsule,delayed 20 mg PO BID@0630,1630 06/07/23 06/03/24 06/01/24 History release cyclosporine 0.05 % eye drops in a 1 drp ophthalmic (eye) BID 05/13/24 06/03/24 06/01/24 History dropperette (Restasis) propranolol 10 mg tablet 10 mg PO BEDTIME PRN anxiety 05/13/24 06/03/24 06/01/24 History melatonin 10 mg tablet 10 mg PO BEDTIME 05/21/24 06/03/24 06/01/24 History olmesartan 40 mg tablet 40 mg PO DAILY 05/21/24 06/03/24 06/01/24 History Exam Height,Weight and Vital Signs: Height 5 ft 2 in Weight 52.8 kg Last Vital Signs Temp 99.3 F 06/06/24 14:51 Pulse 72 06/06/24 14:51 Resp 14 06/06/24 14:51 BP 181/89 H 06/06/24 14:51 Pulse Ox 99 06/06/24 14:51 O2 Del Method Room Air 06/06/24 14:51 Pertinent Lab Results Pertinent Lab Results: Laboratory Tests 06/02/24 06/02/24 06/02/24 21:13 21:15 22:13 WBC 5.2 RBC 5.32 Hgb 14.5 Hct 45.6 MCV 85.7 MCH 27.3 MCHC 31.8 RDW 14.0 Plt Count 209 MPV 10.3 Immature Gran % (Auto) 0.6 H Neut % (Auto) 62.6 Lymph % (Auto) 25.6 Gilchrist % (Auto) 9.6 Eos % (Auto) 1.0 Baso % (Auto) 0.6 Lymph # (Auto) 1.3 Gilchrist # (Auto) 0.5 Eos # (Auto) 0.1 Baso # (Auto) 0.0 Abs Immat Gran (auto) 0.03 Absolute Neuts (auto) 3.3 Absolute Nucleated RBC 0.000 Nucleated RBC % (auto) 0.0 Sodium 137 Potassium 4.5 D Chloride 107 Carbon Dioxide 12 L Anion Gap 23 H BUN 13 Creatinine 0.84 Estim Creat Clear Calc 46.8 Estimated GFR > 60 POC Glucose 46 L* Random Glucose 56 L* Insulin Level Lactic Acid 1.2 Calcium 9.6 Phosphorus Magnesium Total Bilirubin 0.3 AST 211 H ALT 181 H Alkaline Phosphatase 83 Total Protein 6.4 L Albumin 3.8 TSH 1.71 Random Cortisol Stl C. cayetanensis PCR Stool Rotavirus A PCR Stl Adenov F 40 PCR Stool Astrovirus (PCR) Stool Campylobacter PCR Stool Cryptosporidium PCR Stl Sh Tox Pr E STEC PCR Stool E coli O157 PCR Stl Enterotoxigenic E PCR Stool EPEC (PCR) Stool EAEC (PCR) Stl E. histolytica PCR Stool Giardia Lamblia PCR Stl P. shigelloides PCR Stool Salmonella PCR Stool Sapovirus (PCR) Stl Shigella/EIEC PCR St Y.enterocolitica PCR Stool Vibrio (PCR) Stl Vibrio cholerae PCR Stl Norovirus GI/GII PCR C. difficile Tox B Gene 06/02/24 06/02/24 06/03/24 22:52 23:47 03:24 WBC RBC Hgb Hct MCV MCH MCHC RDW Plt Count MPV Immature Gran % (Auto) Neut % (Auto) Lymph % (Auto) Gilchrist % (Auto) Eos % (Auto) Baso % (Auto) Lymph # (Auto) Gilchrist # (Auto) Eos # (Auto) Baso # (Auto) Abs Immat Gran (auto) Absolute Neuts (auto) Absolute Nucleated RBC Nucleated RBC % (auto) Sodium Potassium Chloride Carbon Dioxide Anion Gap BUN Creatinine Estim Creat Clear Calc Estimated GFR POC Glucose 57 L* 86 124 H Random Glucose Insulin Level Lactic Acid Calcium Phosphorus Magnesium Total Bilirubin AST ALT Alkaline Phosphatase Total Protein Albumin TSH Random Cortisol Stl C. cayetanensis PCR Stool Rotavirus A PCR Stl Adenov F PCR Stool Astrovirus (PCR) Stool Campylobacter PCR Stool Cryptosporidium PCR Stl Sh Tox Pr E STEC PCR Stool E coli O157 PCR Stl Enterotoxigenic E PCR Stool EPEC (PCR) Stool EAEC (PCR) Stl E. histolytica PCR Stool Giardia Lamblia PCR Stl P. shigelloides PCR Stool Salmonella PCR Stool Sapovirus (PCR) Stl Shigella/EIEC PCR St Y.enterocolitica PCR Stool Vibrio (PCR) Stl Vibrio cholerae PCR Stl Norovirus GI/GII PCR C. difficile Tox B Gene 06/03/24 06/03/24 06/03/24 06:10 07:02 07:36 WBC 4.0 L RBC 4.35 Hgb 11.9 L Hct 36.6 L MCV 84.1 MCH 27.4 MCHC 32.5 RDW 13.8 Plt Count 198 MPV 10.6 Immature Gran % (Auto) 0.3 Neut % (Auto) 60.1 Lymph % (Auto) 27.5 Gilchrist % (Auto) 10.6 Eos % (Auto) 1.0 Baso % (Auto) 0.5 Lymph # (Auto) 1.1 L Gilchrist # (Auto) 0.4 Eos # (Auto) 0.0 Baso # (Auto) 0.0 Abs Immat Gran (auto) 0.01 Absolute Neuts (auto) 2.4 Absolute Nucleated RBC 0.000 Nucleated RBC % (auto) 0.0 Sodium 139 Potassium 3.6 Chloride 113 H Carbon Dioxide 15 L Anion Gap 15 BUN 9 Creatinine 0.72 Estim Creat Clear Calc 54.6 Estimated GFR > 60 POC Glucose 155 H Random Glucose 168 H Insulin Level Lactic Acid Calcium 8.0 L D Phosphorus Magnesium Total Bilirubin AST ALT Alkaline Phosphatase Total Protein Albumin TSH Random Cortisol 4.9 Stl C. cayetanensis PCR Cancelled Stool Rotavirus A PCR Cancelled Stl Adenov F 40/41 PCR Cancelled Stool Astrovirus (PCR) Cancelled Stool Campylobacter PCR Cancelled Stool Cryptosporidium PCR Cancelled Stl Sh Tox Pr E STEC PCR Cancelled Stool E coli O157 PCR Cancelled Stl Enterotoxigenic E PCR Cancelled Stool EPEC (PCR) Cancelled Stool EAEC (PCR) Cancelled Stl E. histolytica PCR Cancelled Stool Giardia Lamblia PCR Cancelled Stl P. shigelloides PCR Cancelled Stool Salmonella PCR Cancelled Stool Sapovirus (PCR) Cancelled Stl Shigella/EIEC PCR Cancelled St Y.enterocolitica PCR Cancelled Stool Vibrio (PCR) Cancelled Stl Vibrio cholerae PCR Cancelled Stl Norovirus GI/GII PCR Cancelled C. difficile Tox B Gene NEGATIVE 06/03/24 06/03/24 06/03/24 10:44 10:51 13:52 WBC RBC Hgb Hct MCV MCH MCHC RDW Plt Count MPV Immature Gran % (Auto) Neut % (Auto) Lymph % (Auto) Gilchrist % (Auto) Eos % (Auto) Baso % (Auto) Lymph # (Auto) Gilchrist # (Auto) Eos # (Auto) Baso # (Auto) Abs Immat Gran (auto) Absolute Neuts (auto) Absolute Nucleated RBC Nucleated RBC % (auto) Sodium 141 Potassium 4.1 Chloride 114 H Carbon Dioxide 15 L Anion Gap 16 BUN 8 L Creatinine 0.74 Estim Creat Clear Calc 53.1 Estimated GFR > 60 POC Glucose 86 57 L* Random Glucose 94 Insulin Level Lactic Acid Calcium 8.2 L Phosphorus Magnesium Total Bilirubin AST ALT Alkaline Phosphatase Total Protein Albumin TSH Random Cortisol Stl C. cayetanensis PCR Stool Rotavirus A PCR Stl Adenov F 40/ PCR Stool Astrovirus (PCR) Stool Campylobacter PCR Stool Cryptosporidium PCR Stl Sh Tox Pr E STEC PCR Stool E coli O157 PCR Stl Enterotoxigenic E PCR Stool EPEC (PCR) Stool EAEC (PCR) Stl E. histolytica PCR Stool Giardia Lamblia PCR Stl P. shigelloides PCR Stool Salmonella PCR Stool Sapovirus (PCR) Stl Shigella/EIEC PCR St Y.enterocolitica PCR Stool Vibrio (PCR) Stl Vibrio cholerae PCR Stl Norovirus GI/GII PCR C. difficile Tox B Gene 06/03/24 06/03/24 06/03/24 14:17 14:36 17:37 WBC RBC Hgb Hct MCV MCH MCHC RDW Plt Count MPV Immature Gran % (Auto) Neut % (Auto) Lymph % (Auto) Gilchrist % (Auto) Eos % (Auto) Baso % (Auto) Lymph # (Auto) Gilchrist # (Auto) Eos # (Auto) Baso # (Auto) Abs Immat Gran (auto) Absolute Neuts (auto) Absolute Nucleated RBC Nucleated RBC % (auto) Sodium Potassium Chloride Carbon Dioxide Anion Gap BUN Creatinine Estim Creat Clear Calc Estimated GFR POC Glucose 68 120 H Random Glucose Insulin Level Lactic Acid Calcium Phosphorus Magnesium Total Bilirubin AST ALT Alkaline Phosphatase Total Protein Albumin TSH Random Cortisol Stl C. cayetanensis PCR Not Detected Stool Rotavirus A PCR Not Detected Stl Adenov F 40/ PCR Not Detected Stool Astrovirus (PCR) Not Detected Stool Campylobacter PCR Not Detected Stool Cryptosporidium PCR Not Detected Stl Sh Tox Pr E STEC PCR Not Detected Stool E coli O157 PCR Not applicable Stl Enterotoxigenic E PCR Not Detected Stool EPEC (PCR) Not Detected Stool EAEC (PCR) Not Detected Stl E. histolytica PCR Not Detected Stool Giardia Lamblia PCR Not Detected Stl P. shigelloides PCR Not Detected Stool Salmonella PCR Not Detected Stool Sapovirus (PCR) Not Detected Stl Shigella/EIEC PCR Not Detected St Y.enterocolitica PCR Not Detected Stool Vibrio (PCR) Not Detected Stl Vibrio cholerae PCR Not Detected Stl Norovirus GI/GII PCR Not Detected C. difficile Tox B Gene 06/03/24 06/04/24 06/04/24 22:11 05:00 08:24 WBC RBC Hgb Hct MCV MCH MCHC RDW Plt Count MPV Immature Gran % (Auto) Neut % (Auto) Lymph % (Auto) Gilchrist % (Auto) Eos % (Auto) Baso % (Auto) Lymph # (Auto) Gilchrist # (Auto) Eos # (Auto) Baso # (Auto) Abs Immat Gran (auto) Absolute Neuts (auto) Absolute Nucleated RBC Nucleated RBC % (auto) Sodium 142 Potassium 3.3 Chloride 110 H Carbon Dioxide 21 L Anion Gap 14 BUN 3 L Creatinine 0.64 Estim Creat Clear Calc 62.8 Estimated GFR > 60 POC Glucose 94 110 Random Glucose 105 Insulin Level Lactic Acid Calcium Phosphorus Magnesium Total Bilirubin AST ALT Alkaline Phosphatase Total Protein Albumin TSH Random Cortisol Stl C. cayetanensis PCR Stool Rotavirus A PCR Stl Adenov F 40/41 PCR Stool Astrovirus (PCR) Stool Campylobacter PCR Stool Cryptosporidium PCR Stl Sh Tox Pr E STEC PCR Stool E coli O157 PCR Stl Enterotoxigenic E PCR Stool EPEC (PCR) Stool EAEC (PCR) Stl E. histolytica PCR Stool Giardia Lamblia PCR Stl P. shigelloides PCR Stool Salmonella PCR Stool Sapovirus (PCR) Stl Shigella/EIEC PCR St Y.enterocolitica PCR Stool Vibrio (PCR) Stl Vibrio cholerae PCR Stl Norovirus GI/GII PCR C. difficile Tox B Gene 06/04/24 06/04/24 06/04/24 08:24 08:56 17:14 WBC RBC Hgb Hct MCV MCH MCHC RDW Plt Count MPV Immature Gran % (Auto) Neut % (Auto) Lymph % (Auto) Gilchrist % (Auto) Eos % (Auto) Baso % (Auto) Lymph # (Auto) Gilchrist # (Auto) Eos # (Auto) Baso # (Auto) Abs Immat Gran (auto) Absolute Neuts (auto) Absolute Nucleated RBC Nucleated RBC % (auto) Sodium Potassium Chloride Carbon Dioxide Anion Gap BUN Creatinine Estim Creat Clear Calc Estimated GFR POC Glucose 96 100 Random Glucose 104 Insulin Level 2 Lactic Acid Calcium 9.4 D Phosphorus Magnesium 1.5 L Total Bilirubin AST ALT Alkaline Phosphatase Total Protein Albumin TSH Random Cortisol Stl C. cayetanensis PCR Stool Rotavirus A PCR Stl Adenov F 40/41 PCR Stool Astrovirus (PCR) Stool Campylobacter PCR Stool Cryptosporidium PCR Stl Sh Tox Pr E STEC PCR Stool E coli O157 PCR Stl Enterotoxigenic E PCR Stool EPEC (PCR) Stool EAEC (PCR) Stl E. histolytica PCR Stool Giardia Lamblia PCR Stl P. shigelloides PCR Stool Salmonella PCR Stool Sapovirus (PCR) Stl Shigella/EIEC PCR St Y.enterocolitica PCR Stool Vibrio (PCR) Stl Vibrio cholerae PCR Stl Norovirus GI/GII PCR C. difficile Tox B Gene 06/04/24 06/05/24 06/05/24 20:37 05:07 07:17 WBC RBC Hgb Hct MCV MCH MCHC RDW Plt Count MPV Immature Gran % (Auto) Neut % (Auto) Lymph % (Auto) Gilchrist % (Auto) Eos % (Auto) Baso % (Auto) Lymph # (Auto) [place]christ # (Auto) Eos # (Auto) Baso # (Auto) Abs Immat Gran (auto) Absolute Neuts (auto) Absolute Nucleated RBC Nucleated RBC % (auto) Sodium Potassium Chloride Carbon Dioxide Anion Gap BUN Creatinine Estim Creat Clear Calc Estimated GFR POC Glucose 101 123 H 127 H Random Glucose Insulin Level Lactic Acid Calcium Phosphorus Magnesium Total Bilirubin AST ALT Alkaline Phosphatase Total Protein Albumin TSH Random Cortisol Stl C. cayetanensis PCR Stool Rotavirus A PCR Stl Adenov F PCR Stool Astrovirus (PCR) Stool Campylobacter PCR Stool Cryptosporidium PCR Stl Sh Tox Pr E STEC PCR Stool E coli O157 PCR Stl Enterotoxigenic E PCR Stool EPEC (PCR) Stool EAEC (PCR) Stl E. histolytica PCR Stool Giardia Lamblia PCR Stl P. shigelloides PCR Stool Salmonella PCR Stool Sapovirus (PCR) Stl Shigella/EIEC PCR St Y.enterocolitica PCR Stool Vibrio (PCR) Stl Vibrio cholerae PCR Stl Norovirus GI/GII PCR C. difficile Tox B Gene 06/05/24 06/05/24 06/05/24 10:05 13:02 15:34 WBC RBC Hgb Hct MCV MCH MCHC RDW Plt Count MPV Immature Gran % (Auto) Neut % (Auto) Lymph % (Auto) Gilchrist % (Auto) Eos % (Auto) Baso % (Auto) Lymph # (Auto) [place]christ # (Auto) Eos # (Auto) Baso # (Auto) Abs Immat Gran (auto) Absolute Neuts (auto) Absolute Nucleated RBC Nucleated RBC % (auto) Sodium 145 144 Potassium 2.9 L* 3.3 Chloride 110 H 110 H Carbon Dioxide 27 23 Anion Gap 11 L 14 BUN < 3 L Creatinine 0.64 Estim Creat Clear Calc 62.8 Estimated GFR > 60 POC Glucose 89 Random Glucose 118 H Insulin Level Lactic Acid Calcium 8.5 D Phosphorus 2.8 Magnesium 1.3 L* 2.6 Total Bilirubin AST ALT Alkaline Phosphatase Total Protein Albumin TSH Random Cortisol 6.8 Stl C. cayetanensis PCR Stool Rotavirus A PCR Stl Adenov F PCR Stool Astrovirus (PCR) Stool Campylobacter PCR Stool Cryptosporidium PCR Stl Sh Tox Pr E STEC PCR Stool E coli O157 PCR Stl Enterotoxigenic E PCR Stool EPEC (PCR) Stool EAEC (PCR) Stl E. histolytica PCR Stool Giardia Lamblia PCR Stl P. shigelloides PCR Stool Salmonella PCR Stool Sapovirus (PCR) Stl Shigella/EIEC PCR St Y.enterocolitica PCR Stool Vibrio (PCR) Stl Vibrio cholerae PCR Stl Norovirus GI/GII PCR C. difficile Tox B Gene 06/05/24 06/05/24 06/06/24 20:31 23:34 05:31 WBC RBC Hgb Hct MCV MCH MCHC RDW Plt Count MPV Immature Gran % (Auto) Neut % (Auto) Lymph % (Auto) Gilchrist % (Auto) Eos % (Auto) Baso % (Auto) Lymph # (Auto) [place]christ # (Auto) Eos # (Auto) Baso # (Auto) Abs Immat Gran (auto) Absolute Neuts (auto) Absolute Nucleated RBC Nucleated RBC % (auto) Sodium 141 Potassium 2.8 L* Chloride 107 Carbon Dioxide 27 Anion Gap 10 L BUN 3 L Creatinine 0.57 Estim Creat Clear Calc 70.6 Estimated GFR > 60 POC Glucose 71 70 Random Glucose 107 Insulin Level Lactic Acid Calcium 8.3 L Phosphorus Magnesium 2.0 Total Bilirubin AST ALT Alkaline Phosphatase Total Protein Albumin TSH Random Cortisol Stl C. cayetanensis PCR Stool Rotavirus A PCR Stl Adenov PCR Stool Astrovirus (PCR) Stool Campylobacter PCR Stool Cryptosporidium PCR Stl Sh Tox Pr E STEC PCR Stool E coli O157 PCR Stl Enterotoxigenic E PCR Stool EPEC (PCR) Stool EAEC (PCR) Stl E. histolytica PCR Stool Giardia Lamblia PCR Stl P. shigelloides PCR Stool Salmonella PCR Stool Sapovirus (PCR) Stl Shigella/EIEC PCR St Y.enterocolitica PCR Stool Vibrio (PCR) Stl Vibrio cholerae PCR Stl Norovirus GI/GII PCR C. difficile Tox B Gene 06/06/24 06/06/24 06/06/24 05:47 08:16 12:00 WBC RBC Hgb Hct MCV MCH MCHC RDW Plt Count MPV Immature Gran % (Auto) Neut % (Auto) Lymph % (Auto) [place]christ % (Auto) Eos % (Auto) Baso % (Auto) Lymph # (Auto) [place]christ # (Auto) Eos # (Auto) Baso # (Auto) Abs Immat Gran (auto) Absolute Neuts (auto) Absolute Nucleated RBC Nucleated RBC % (auto) Sodium Potassium Chloride Carbon Dioxide Anion Gap BUN Creatinine Estim Creat Clear Calc Estimated GFR POC Glucose 107 96 93 Random Glucose Insulin Level Lactic Acid Calcium Phosphorus Magnesium Total Bilirubin AST ALT Alkaline Phosphatase Total Protein Albumin TSH Random Cortisol Stl C. cayetanensis PCR Stool Rotavirus A PCR Stl Adenov F 40/41 PCR Stool Astrovirus (PCR) Stool Campylobacter PCR Stool Cryptosporidium PCR Stl Sh Tox Pr E STEC PCR Stool E coli O157 PCR Stl Enterotoxigenic E PCR Stool EPEC (PCR) Stool EAEC (PCR) Stl E. histolytica PCR Stool Giardia Lamblia PCR Stl P. shigelloides PCR Stool Salmonella PCR Stool Sapovirus (PCR) Stl Shigella/EIEC PCR St Y.enterocolitica PCR Stool Vibrio (PCR) Stl Vibrio cholerae PCR Stl Norovirus GI/GII PCR C. difficile Tox B Gene 06/06/24 14:11 WBC RBC Hgb Hct MCV MCH MCHC RDW Plt Count MPV Immature Gran % (Auto) Neut % (Auto) Lymph % (Auto) [place] % (Auto) Eos % (Auto) Baso % (Auto) Lymph # (Auto) [place] # (Auto) Eos # (Auto) Baso # (Auto) Abs Immat Gran (auto) Absolute Neuts (auto) Absolute Nucleated RBC Nucleated RBC % (auto) Sodium 141 Potassium 3.9 D Chloride 107 Carbon Dioxide 27 Anion Gap 11 L BUN 3 L Creatinine 0.62 Estim Creat Clear Calc 64.9 Estimated GFR > 60 POC Glucose Random Glucose 106 Insulin Level Lactic Acid Calcium 8.7 Phosphorus Magnesium Total Bilirubin AST ALT Alkaline Phosphatase Total Protein Albumin TSH Random Cortisol Stl C. cayetanensis PCR Stool Rotavirus A PCR Stl Adenov F 40/41 PCR Stool Astrovirus (PCR) Stool Campylobacter PCR Stool Cryptosporidium PCR Stl Sh Tox Pr E STEC PCR Stool E coli O157 PCR Stl Enterotoxigenic E PCR Stool EPEC (PCR) Stool EAEC (PCR) Stl E. histolytica PCR Stool Giardia Lamblia PCR Stl P. shigelloides PCR Stool Salmonella PCR Stool Sapovirus (PCR) Stl Shigella/EIEC PCR St Y.enterocolitica PCR Stool Vibrio (PCR) Stl Vibrio cholerae PCR Stl Norovirus GI/GII PCR C. difficile Tox B Gene Airway Mallampati Class: II TM Dist: >3cm Neck ROM: Full Heart: RRR Lungs: CTA Assessment and Plan Assessment Anesthesia Assessment: Anesthesia Plan Discussed Final Anesthetic Review Family History of Problems with Anesthesia: No History of Problems with Anesthesia: No NPO: Yes ASA Class: II Final Preanesthetic Review: Meds/Allgs Chart Reviewed, Consent Obtained/Reviewed and Anes Risks/Benef Reviewed Patient Risk: Low Procedure Risk: Low Anesthetic Plan Anesthetic Plan: MAC: Disposition: Standard PACU
--- NOTE | 2024-06-06 16:07 | P.OPN-COLO_ITS ---
Colonoscopy Operative Note Operative Note Date of Service: 06/06/24 Narrative: Procedure: Upper endoscopy and colonoscopy Indication: Persistent diarrhea Endoscopist: Teri Wilkins MD Anesthesia Provider: Sheba Rothman MD Anesthesia type: MAC Instrument: [id number]-H190 and [id number]-[id number] EGD Procedure:?? The procedure, indications, preparation and potential complications were reviewed with the patient, who indicated understanding and gave written informed consent to proceed. The endoscope was introduced through the mouth, and advanced to the 2nd part of the duodenum. The mucosa was carefully examined on slow withdrawal of the endoscope. The patient tolerated the procedure well. There were no immediate complications.? EGD Findings:? * Esophagus:? Normal esophageal mucosa was noted. The Z-line was at 36 cm. * Stomach:?Erythema and edema in the cardia of the stomach mariusz in the region of hiatal hernia. There were a few polyps in the body of the stomach. Random cold forceps biopsies were taken from the stomach to rule out H pylori. * Duodenum:? Normal duodenal mucosa noted to the extent examined. Cold forceps biopsies were taken from the duodenal bulb and 2nd portion of the duodenum to rule out celiac sprue. Colonoscopy Procedure:? The patient was then turned for the colonoscopy. A digital rectal exam was performed which was abnormal for ext hemorrhoids.? A distal attachment cap was affixed to the tip of the scope and the colonoscope was then inserted through the anus and advanced through the colon and advanced to the cecum at 70 cm and terminal ileum.? Appendiceal orifice and ileocecal valve were identified. Mucosa was carefully examined under high definition white light as the instrument was slowly withdrawn in a retrograde panoramic fashion. Retroflexion was performed in rectum. The procedure was not difficult. The quality of the prep was BBPS: 2+1+2 = inadequate around transverse colon Withdrawal time 11 minutes Limitations: No limitations Findings: Mucosa: Normal colon and terminal ileum mucosa. Cold forceps biopsies were taken from the right and left side of the colon to rule out microscopic colitis. Protruding lesions: * 1 sessile polyp of size 2 mm noted in the hepatic flexure. Cold forceps polypectomy was performed. The polyp was removed and retrieved. * Large internal hemorrhoids without stigmata of recent bleeding. Impression: 1. Normal esophagus 2. Abhay erosions (biopsy) 3. Gastric polyps 3. Normal duodenal (biopsy) 4. Normal colon and T.I mucosa (biopsy) 5. One polyp removed from the colon 6. Internal and external hemorrhoids Recommendations:?? * No obvious mucosal abnormality to explain on going diarrhea. * Follow-up path results * Avoid NSAIDs * Poor prep in T.C. Repeat colonoscopy within 1-2 years if pt has not had a high quality colonoscopy within the last 5 years. * Labs for functional NET pending
--- NOTE | 2024-06-06 16:20 | HO.POSTANES ---
Post Anesthesia Evaluation Post Anesthesia Evaluation Date of Service: 06/06/24 Vital Signs: Vital Signs Temp Pulse Resp BP Pulse Ox O2 Del Method 06/06/24 16:12 97 F 76 16 136/78 98 Room Air 06/06/24 14:51 99.3 F 72 14 181/89 H 99 Room Air 06/06/24 08:57 Room Air 06/06/24 07:36 97.2 F 70 12 145/71 H 96 Room Air Anesthesia: Monitored Mental Status: Awake Pain Control: Satisfactory Nausea/Vomiting: None Hydration: Adequate Anesthesia-Related Issues: No Anes. Related Issues
[2024-06-06 17:41] LABS: Glucose, Whole Blood 63 mg/dL (60-115)
[2024-06-06 19:42] LABS: Glucose, Whole Blood 89 mg/dL (60-115)
[2024-06-06] MEDS: Montelukast Sodium 10 MG TABLET PO (20:14)
[2024-06-06] MEDS: ondansetron HCL 4 MG/2 ML VIAL IVPUSH (20:22)
[2024-06-06] MEDS: Propranolol HCL 10 MG TABLET PO (21:49)
[2024-06-06 23:40] LABS: Glucose, Whole Blood 99 mg/dL (60-115)
[2024-06-07] MEDS: Dextrose 5 % and Lactated Ring 1,000 ML 100 ML IVCONT (00:08)
[2024-06-07] MEDS: carisoprodoL 350 MG TABLET PO ×2 (00:08→23:51)
[2024-06-07 03:16] VITALS: BP 133/78; PULSE 76; RESP 18; TEMP 36.5; O2SAT 96
[2024-06-07 03:26] LABS: Glucose, Whole Blood 95 mg/dL (60-115)
[2024-06-07] MEDS: Omeprazole 20 MG CAPSULE.DR PO ×2 (06:12→16:16)
[2024-06-07 06:22] LABS: Anion Gap 12 (12-20); Blood Urea Nitrogen 3 mg/dL (9-16); Calcium 8.3 mg/dL (8.4-10.2); Carbon Dioxide 22 mmol/L (22-29); Chloride 110 mmol/L (96-108); Creatinine Clr Calc Pharmacy 70.6; Estimated Glomerular Filt Rate > 60; Glucose Random 105 mg/dL (60-115); Magnesium 1.7 mg/dL (1.6-2.6); Potassium 3.6 mmol/L (3.3-5.1); Sodium 140 mmol/L (135-145)
[2024-06-07 07:24] VITALS: BP 137/74; PULSE 74; RESP 17; TEMP 36.4; O2SAT 96
[2024-06-07 07:51] LABS: Glucose, Whole Blood 106 mg/dL (60-115)
[2024-06-07] MEDS: Valsartan 160 MG TABLET PO (08:21)
[2024-06-07] MEDS: carvediloL 6.25 MG TABLET PO ×2 (08:21→21:01)
[2024-06-07] MEDS: Ezetimibe 10 MG TABLET PO (08:21)
[2024-06-07] MEDS: Enoxaparin Sodium 40 MG/0.4 ML SYRINGE SUBCUT (08:21)
--- NOTE | 2024-06-07 08:47 | HO.POSTANES ---
Post Anesthesia Evaluation Post Anesthesia Evaluation Date of Service: 06/07/24 Vital Signs: Vital Signs Temp Pulse Resp BP Pulse Ox O2 Del Method 06/07/24 08:36 Room Air 06/07/24 07:24 97.5 F 74 17 137/74 96 Room Air 06/07/24 03:16 97.7 F 76 18 133/78 96 Room Air 06/06/24 23:19 98.5 F 78 18 152/74 H 96 Room Air Anesthesia: Monitored Mental Status: Awake Pain Control: Satisfactory Nausea/Vomiting: None Hydration: Adequate Anesthesia-Related Issues: No Anes. Related Issues
--- NOTE | 2024-06-07 11:28 | P.PNIM_ITS ---
Subjective Subjective Date of Service: 06/07/24 Interval History: f/u on diarrhea, hypotension, metabolic acidosis K is corrected, diarrhea is better, Physical Exam 2 Vital Signs: Vital Signs: Last Vital Signs Temp 97.5 F 06/07/24 07:24 Pulse 74 06/07/24 07:24 Resp 17 06/07/24 07:24 BP 137/74 06/07/24 07:24 Pulse Ox 96 06/07/24 07:24 O2 Del Method Room Air 06/07/24 08:36 BMI result Body Mass Index 21.3 Const: Other: General: AO X 3, no acute distress Resp: CTA bilateral CVS: S1,S2,RRR GI: +BS, NT, no distention Skin: No rash Neuro: motor grossly intact Psych: appropriate affect Objective Data Active Medications Acetaminophen (Acetaminophen 325 Mg Tablet) 650 mg PO Q6H PRN PRN Reason: Pain, Mild (Pain Scale 1-3), fever or headache Albuterol Sulfate (Albuterol Sulfate 90 Mcg 8 Gm Inhaler) 2 puff INHALE Q6H PRN PRN Reason: Shortness Of Breath Calcium Carbonate (Calcium Carbonate 750 Mg Tab.Chew) 750 mg PO Q4H PRN PRN Reason: Heartburn Carisoprodol (Carisoprodol 350 Mg Tablet) 350 mg PO BEDTIME ON LICENSE OF [facility] Last Admin: 06/07/24 00:08 Dose: 350 mg Documented By: BRODERICK Carvedilol (Carvedilol 6.25 Mg Tablet) 6.25 mg PO BID ON LICENSE OF [facility]; Protocol Last Admin: 06/07/24 08:21 Dose: 6.25 mg Documented By: MAYA Ezetimibe (Ezetimibe 10 Mg Tablet) 10 mg PO DAILY ON LICENSE OF [facility] Last Admin: 06/07/24 08:21 Dose: 10 mg Documented By: MAYA Enoxaparin Sodium (Enoxaparin Sodium 40 Mg/0.4 Ml Syringe) 40 mg SUBCUT Q24H ON LICENSE OF [facility] Last Admin: 06/07/24 08:21 Dose: 40 mg Documented By: MAYA Glucose (Glucose Gel 15 Gm Gel..Gram.) 15 gm PO Q15M PRN; Protocol PRN Reason: per Hypoglycemia Standing Ord. Dextrose (D10) 250 mls @ 750 mls/hr IV Q15M PRN; Protocol PRN Reason: per Hypoglycemia Standing Ord. Dextrose/Lactated Ringer's (D5lr) 1,000 mls @ 100 mls/hr IVCONT .Q10H ON LICENSE OF [facility] Last Infusion: 06/07/24 10:10 Dose: Infused Documented By: MAYA Loperamide HCl (Loperamide Hcl 2 Mg Capsule) 2 mg PO Q6H PRN PRN Reason: Diarrhea Last Admin: 06/04/24 19:54 Dose: 2 mg Documented By: RENEE Magnesium Hydroxide (Milk Of Magnesia 30 Ml Oral.Susp) 30 ml PO DAILY PRN PRN Reason: Constipation Melatonin (Melatonin 3 Mg Tablet) 6 mg PO BEDTIME PRN PRN Reason: Insomnia Last Admin: 06/06/24 00:08 Dose: 6 mg Documented By: JESSICA Montelukast Sodium (Montelukast Sodium 10 Mg Tablet) 10 mg PO BEDTIME ON LICENSE OF [facility] Last Admin: 06/06/24 20:14 Dose: 10 mg Documented By: BRODERICK Omeprazole (Omeprazole 20 Mg Capsule.Dr) 20 mg PO BID@0630,1630 ON LICENSE OF [facility] Last Admin: 06/07/24 06:12 Dose: 20 mg Documented By: BRODERICK Ondansetron HCl (Ondansetron Hcl 4 Mg/2 Ml Vial) 4 mg IVPUSH Q6H PRN PRN Reason: Nausea and Vomiting Last Admin: 06/06/24 20:22 Dose: 4 mg Documented By: BRODERICK Propranolol HCl (Propranolol Hcl 10 Mg Tablet) 10 mg PO BEDTIME PRN; Protocol PRN Reason: anxiety Last Admin: 06/06/24 21:49 Dose: 10 mg Documented By: BRODERICK Sodium Chloride (0.9 % Sodium Chloride Flush 3 Ml Syringe) 3 ml IVFLUSH QSHIFT ON LICENSE OF [facility] Last Admin: 06/07/24 08:20 Dose: Not Given Documented By: MAYA Non-Admin Reason: IV Running Valsartan (Valsartan 160 Mg Tablet) 160 mg PO DAILY ON LICENSE OF [facility] Last Admin: 06/07/24 08:21 Dose: 160 mg Documented By: MAYA Labs 06/03/24 06:10 06/07/24 05:39 Labs: Laboratory Results - last 24 hr 06/06/24 06/06/24 06/06/24 12:00 14:11 17:36 Hold Purple Top Anion Gap 11 L Estim Creat Clear Calc 64.9 Estimated GFR > 60 POC Glucose 93 63 Random Glucose 106 Calcium 8.7 Magnesium 06/06/24 06/06/24 06/07/24 19:37 23:28 03:22 Hold Purple Top Anion Gap Estim Creat Clear Calc Estimated GFR POC Glucose 89 99 95 Random Glucose Calcium Magnesium 06/07/24 06/07/24 06/07/24 05:39 05:40 07:47 Hold Purple Top SEE NOTE Anion Gap 12 Estim Creat Clear Calc 70.6 Estimated GFR > 60 POC Glucose 106 Random Glucose 105 Calcium 8.3 L Magnesium 1.7 Assessment and Plan (1) Diarrhea: Status: Acute (2) Hypoglycemia: Status: Acute Plan 73 yo F with lupus who presents for her 3rd admission for on-going diarrhea resulting in hypotension and dehydration, metabolic acidosis Acute on chronic diarrhea -negative cdif -stool panel negative -imodirum prn -Seen by gi with the following: - Low residue diet as tolerated - IVF and electrolyte replacement as needed - pls monitor K and Mg daily - Functional neuroendocrine tumor (NET)screening labs ordered as appears to be secretory diarrhea based on hx - Agree with DCing Vanco - EGD/colo 06/06 no acute finding - CLD on 06/05 with goLYTELY to start that PM. Orders placed. - MRI abd pancreas protocol within the next 2-4 weeks, if not able to get done this admission -advnace diet and monitor 1 more day hypoglycemia--chronic, resolved. -BS q6 -outpatient endo f/u -MR pancreatic protocol as outpatient -am coritisol was 4.9, checking random after 10 6,8 Hypokalemia--2.8, GI loss. replace with PO and IV K metabolic acidosis d/t GI loss--resolved -Avoid NS--as can contribute hyperchloremic met acidosis -stop LR mild peristent asthma--no exacerbation -PRN inhalers HTN--hypotension on presentation, BP now high -restart Coreg and Olmesartan Seasonal allergy--Claritin need for inpt: diarreha,dehydration, needing IVF and need for further testing with colonoscopy Quality Stroke Does the patient have a stroke diagnosis?: No VTE Prior VTE?: No VTE Risk Level:: Medical - moderate - high VTE Device Contraindication: Treatment Not Indicated VTE Drug Contraindication: N/A - Med Ordered
[2024-06-07 11:52] LABS: Glucose, Whole Blood 97 mg/dL (60-115)
[2024-06-07 15:54] VITALS: BP 142/77; PULSE 79; RESP 18; TEMP 36.4; O2SAT 94
[2024-06-07 16:05] LABS: Glucose, Whole Blood 96 mg/dL (60-115)
[2024-06-07] MEDS: 0.9 % Sodium Chloride Flush 3 ML SYRINGE IVFLUSH ×2 (16:16→23:53)
[2024-06-07 20:13] LABS: Glucose, Whole Blood 82 mg/dL (60-115)
[2024-06-07 20:58] VITALS: BP 165/75; PULSE 80; RESP 16; TEMP 36.6; O2SAT 95
[2024-06-07] MEDS: Montelukast Sodium 10 MG TABLET PO (21:02)
[2024-06-07] MEDS: Propranolol HCL 10 MG TABLET PO (22:23)
[2024-06-07] MEDS: Calcium Carbonate 750 MG TAB.CHEW PO (22:25)
[2024-06-07 23:25] VITALS: BP 152/58; PULSE 70; RESP 16; TEMP 36; O2SAT 97
[2024-06-07 23:41] LABS: Glucose, Whole Blood 82 mg/dL (60-115)
[2024-06-08] MEDS: ondansetron HCL 4 MG/2 ML VIAL IVPUSH (00:10)
[2024-06-08 04:00] LABS: Glucose, Whole Blood 81 mg/dL (60-115)
[2024-06-08] MEDS: Omeprazole 20 MG CAPSULE.DR PO (06:06)
[2024-06-08 07:04] LABS: Anion Gap 10 (12-20); Blood Urea Nitrogen 9 mg/dL (9-16); Calcium 8.5 mg/dL (8.4-10.2); Carbon Dioxide 27 mmol/L (22-29); Chloride 108 mmol/L (96-108); Estimated Glomerular Filt Rate > 60; Glucose Random 74 mg/dL (60-115); Magnesium 1.7 mg/dL (1.6-2.6); Potassium 3.6 mmol/L (3.3-5.1); Sodium 141 mmol/L (135-145)
[2024-06-08 07:39] VITALS: BP 154/75; PULSE 71; RESP 16; TEMP 36.5; O2SAT 95
[2024-06-08 08:00] VITALS: O2SAT 95
[2024-06-08] MEDS: carvediloL 6.25 MG TABLET PO (08:13)
[2024-06-08] MEDS: Enoxaparin Sodium 40 MG/0.4 ML SYRINGE SUBCUT (08:13)
[2024-06-08] MEDS: Ezetimibe 10 MG TABLET PO (08:14)
[2024-06-08] MEDS: 0.9 % Sodium Chloride Flush 3 ML SYRINGE IVFLUSH (08:14)
[2024-06-08] MEDS: Valsartan 160 MG TABLET PO (08:14)
[2024-06-08 08:28] LABS: Glucose, Whole Blood 74 mg/dL (60-115)
--- NOTE | 2024-06-08 11:24 | MHC.CM.PN ---
Per MD rounds patient is discharged today, self care. She has arranged for transportation home.
[2024-06-08 11:59] LABS: Glucose, Whole Blood 93 mg/dL (60-115)
[2024-06-08 14:47] LABS: Gastrin 62 pg/mL (<=100)
[2024-06-08 15:17] VITALS: BP 129/74; PULSE 76; RESP 20; TEMP 36.6; O2SAT 96
--- NOTE | 2024-06-08 15:25 | P.DS_ITS ---
DS: Providers Provider Date of Service: 06/08/24 Date of admission: 06/03/24 01:15 Primary care physician: Parvez Altamirano MD Consults: 06/03/24 01:47 Consult to Gastroenterology Routine Consulting Provider: Teri Wilkins Reason for consultation: persistent diarrhea DS: Diagnosis Discharge Diagnosis (1) Diarrhea: Status: Acute (2) Hypoglycemia: Status: Acute DS: Summary Hospital Course Hospital Course: Chief Complaint: Diarrhea This is a 73-year-old female with pertinent history of SLE, fibromyalgia, asthma not on home oxygen, gastroesophageal reflux disease, hypertension, mixed hyperlipidemia who presents to the emergency department for evaluation of loose stools. Of note, patient was admitted on 05/13 with diarrhea secondary to EPEC a nd discharged on 05/15. Patient continued to have diarrhea and failed outpatient therapies and hence was readmitted on 05/21. She was initiated on vancomycin 125 mg q.i.d. and discharged on 05/24. Patient states she continues to have loose stools, multiple episodes throughout the day. Patient states that the diarrhea never stopped since it started about 3 weeks ago. She also has nausea and poor p.o. intake. Also has generalized abdominal discomfort. No fever, chills, vomiting, chest discomfort, palpitations, shortness of breath, changes in urinary habits. In the emergency department, patient was found to be hypoglycemic and initiated on dextrose fluids Hospital course hief Complaint: Diarrhea This is a 73-year-old female with pertinent history of SLE, fibromyalgia, asthma not on home oxygen, gastroesophageal reflux disease, hypertension, mixed hyperlipidemia who presents to the emergency department for evaluation of loose stools. Of note, patient was admitted on 05/13 with diarrhea secondary to EPEC and discharged on 05/15. Patient continued to have diarrhea and failed outpatient therapies and hence was readmitted on 05/21. She was initiated on vancomycin 125 mg q.i.d. and discharged on 05/24. Patient states she continues to have loose stools, multiple episodes throughout the day. Patient states that the diarrhea never stopped since it started about 3 weeks ago. She also has nausea and poor p.o. intake. Also has generalized abdominal discomfort. No fever, chills, vomiting, chest discomfort, palpitations, shortness of breath, changes in urinary habits. In the emergency department, patient was found to be hypoglycemic and initiated on dextrose fluids Hospital course: Acute on chronic diarrhea -negative cdif -stool panel negative -imodirum prn -Seen by gi with the following: - Low residue diet as tolerated - IVF and electrolyte replacement as needed - pls monitor K and Mg daily - Functional neuroendocrine tumor (NET)screening labs ordered as appears to be secretory diarrhea based on hx - Agree with DCing Vanco - EGD/colo 06/06 no acute finding - CLD on 06/05 with goLYTELY to start that PM. Orders placed. - MRI abd pancreas protocol within the next 2-4 weeks, if not able to get done this admission -advnace diet and monitor 1 more day hypoglycemia--chronic, resolved. -BS q6 -outpatient endo f/u -MR pancreatic protocol as outpatient -am coritisol was 4.9, checking random after 10 6,8 Hypokalemia--2.8, GI loss. replace with PO and IV K metabolic acidosis d/t GI loss--resolved -Avoid NS--as can contribute hyperchloremic met acidosis -stop LR mild peristent asthma--no exacerbation -PRN inhalers HTN--hypotension on presentation, BP now high -restart Coreg and Olmesartan Seasonal allergy--Claritin Time Attestation Discharge Coordination Time (in mins): 45 Quality: Safe Use of Opioids Does Pt have an Active Cancer Diagnosis on the Problem List?: No Quality: Stroke Does the patient have a stroke diagnosis?: No Physical Exam Vital Signs: Vital Signs: Last Vital Signs Temp 98 F 06/08/24 15:17 Pulse 76 06/08/24 15:17 Resp 20 06/08/24 15:17 BP 129/74 06/08/24 15:17 Pulse Ox 96 06/08/24 15:17 O2 Del Method Room Air 06/08/24 15:17 BMI result Body Mass Index 21.3 DS: Data Data Completed and Pending Completed studies during hospitalization [Text1]: Pending at discharge 06/06/24 15:37 Surgical [PTH] Routine Labs on day of discharge: Laboratory Results - last 24 hr 06/04/24 06/07/24 06/07/24 08:24 16:01 20:08 Sodium Potassium Chloride Carbon Dioxide Anion Gap BUN Creatinine Estim Creat Clear Calc Estimated GFR POC Glucose 96 82 Random Glucose Calcium Magnesium Gastrin 62 06/07/24 06/08/24 06/08/24 23:36 03:55 05:16 Sodium 141 Potassium 3.6 Chloride 108 Carbon Dioxide 27 Anion Gap 10 L BUN 9 Creatinine 0.60 Estim Creat Clear Calc 67.0 Estimated GFR > 60 POC Glucose 82 81 Random Glucose 74 Calcium 8.5 Magnesium 1.7 Gastrin 06/08/24 06/08/24 08:25 11:55 Sodium Potassium Chloride Carbon Dioxide Anion Gap BUN Creatinine Estim Creat Clear Calc Estimated GFR POC Glucose 74 93 Random Glucose Calcium Magnesium Gastrin Discharge Plan Discharge Anticipated Discharge Date/Time: 06/08/24 15:52 Patient Disposition: Home, Self-Care Discharge Diagnosis: Diarrhea, hypoglycemiam, hypokalemia Referrals: Parvez Benedict MD [Primary Care Provider] - 1 Week Discharge Medications: Continued carisoprodol 350 mg tablet 350 mg PO BEDTIME carvedilol 6.25 mg tablet 6.25 mg PO BID omeprazole 20 mg capsule,delayed release(DR/EC) 20 mg PO BID@0630,1630 montelukast 10 mg tablet 10 mg PO BEDTIME furosemide 20 mg tablet 20 mg PO DAILY PRN (Reason: Salt levels) albuterol sulfate 90 mcg/actuation Hfa Aerosol Inhaler 2 puff INHALATION Q6H PRN (Reason: Shortness Of Breath) ezetimibe 10 mg tablet 10 mg PO DAILY Asmanex HFA 200 mcg/actuation HFA aerosol inhaler 2 puff INHALATION DAILY Leqvio 284 mg/1.5 mL syringe 284 mg subcut [id number] propranolol 10 mg tablet 10 mg PO BEDTIME PRN (Reason: anxiety) cyclosporine [Restasis] 0.05 % dropperette 1 drp ophthalmic (eye) BID ondansetron 4 mg tablet,disintegrating 4 mg PO Q8H PRN (Reason: nausea and vomiting) Qty: 20 1RF olmesartan 40 mg tablet 40 mg PO DAILY melatonin 10 mg Tablet 10 mg PO BEDTIME Discontinued vancomycin 125 mg capsule See Rx Instructions .ROUTE .COMPLEX Qty: 70 0RF Rx Instructions: Vancomycin 125 mg; 1 p.o. q.i.d. x1 week followed by 1 p.o. t.i.d. x1 week followed by 1 b.i.d. for 1 week and daily for 1 week Discharge Orders: Discharge Order (Routine); Ordered 06/08/24 Ordered By: Keven Mendez Diet: Advance to usual diet Activity on Discharge: As tolerated Stand Alone Forms: Patient Portal Discharge page Print Language: Slovak Care Plan Goals: Full recovery from diarrhea, hypokalemia and hypoglycemia Health Concerns: Diarrhea hypokalemia hypoglycemi Plan of Treatment: Follow up with Dr. Wilkins for further testing as outpatient you will need an MRI done on outpatient basis follow up with your Doctor in a week, Assessment: see
[2024-06-08 15:52] LABS: Glucose, Whole Blood 85 mg/dL (60-115)
--- NOTE | 2024-06-09 09:08 | P.CDIM_ITS ---
PROVIDER RESPONSE TEXT: To clarify, the appropriate diagnosis supported by the clinical indicators: Acute QUERY TEXT: PHYSICIAN'S DOCUMENTATION REQUEST Date of Query: 06/06/2024 09:41 AM EDT Patient Name: Alexandra Harris Admit Date: 06/03/2024 Dear Keven Mendez MD, A review of the medical record indicates additional documentation may be needed. Please review below and update the documentation accordingly. Clinical Indicators: Progress notes: Plan - metabolic acidosis d/t GI loss - better Avoid NS - as can contribute hyperchloremic met acidosis continue LR Clarify which of the following accurately represents the acuity of the metabolic acidosis: Possible options might include: Acute Chronic Other (explain) Clinically unable to determine (explain) Thank you, Mary Ramos, CCS, CDIS Use of terms such as suspected, likely, concern for, or probable (associated with a specific diagnosi s that is being evaluated, monitored, or treated as if it exists) are acceptable and can be coded in the inpatient se tting, when documented at the time of discharge. Please use your independent medical judgment in providing your response. THIS QUERY IS PART OF THE PERMANENT MEDICAL RECORD
[2024-06-18 11:59] LABS: Total Volume 550 mL
== END 2024-06-08 16:35 | disposition home or self-care (01) | DRG 392 ==
LOC: HO.ED 06-03 01:16 → HO.EDOVER 06-03 01:19 → HO.S3 06-03 13:27
PROVIDERS: Family Medicine; Internal Medicine; Admitting Provider Student in an Organized Health Care Education/Training Program; Emergency Provider Internal Medicine; PCP Family Medicine; Visit Provider Internal Medicine
PROC: 0DB98ZX Excision of Duodenum, Via Natural or Artificial Opening Endoscopic, Diagnostic (ICD-10-PCS; principal; 2024-06-06 14:40)
DX: K52.9 Noninfective gastroenteritis and colitis, unspecified (principal); E87.21 Acute metabolic acidosis; M32.9 Systemic lupus erythematosus, unspecified; M79.7 Fibromyalgia; K64.4 Residual hemorrhoidal skin tags; K64.8 Other hemorrhoids; K31.7 Polyp of stomach and duodenum; E16.2 Hypoglycemia, unspecified; K63.5 Polyp of colon; E87.6 Hypokalemia; E78.2 Mixed hyperlipidemia; J45.30 Mild persistent asthma, uncomplicated; I95.9 Hypotension, unspecified; E86.0 Dehydration; I10 Essential (primary) hypertension; K21.9 Gastro-esophageal reflux disease without esophagitis; Z79.899 Other long term (current) drug therapy
CPT/HCPCS: 36415; 74177; 80048; 80051; 80053; 81050; 82533; 82941; 82947; 83497; 83525; 83605; 83735; 84100; 84443; 84586; 85025; 86316; 87493; 87507; 88305; 88313; 88342; 93005; 99285; J1610; J1650; J2405; J2704; J3475; J3480; J7120; Q9967

== ENCOUNTER → 2024-06-03 01:15 | Outpatient (BNV) | payer OTHER, SELFPAY | PROVIDERS: Admitting Provider Student in an Organized Health Care Education/Training Program; Emergency Provider Internal Medicine; PCP Family Medicine; Visit Provider Student in an Organized Health Care Education/Training Program | DX: R19.7 Diarrhea, unspecified (principal); E16.2 Hypoglycemia, unspecified | CPT/HCPCS: 99223; 99232; 99239; 99499 ==

== ENCOUNTER → 2024-06-03 01:15 | Outpatient (BNV) | payer OTHER, SELFPAY | PROVIDERS: Admitting Provider Student in an Organized Health Care Education/Training Program; Emergency Provider Internal Medicine; PCP Family Medicine; Visit Provider Internal Medicine | DX: K52.9 Noninfective gastroenteritis and colitis, unspecified (principal); K64.8 Other hemorrhoids; K63.5 Polyp of colon; K31.7 Polyp of stomach and duodenum; K25.3 Acute gastric ulcer without hemorrhage or perforation | CPT/HCPCS: 43239; 45380; 99223 ==

== ENCOUNTER 2024-06-15 15:38 | Emergency (ER) | payer OTHER, SELFPAY ==
[2024-06-15 15:43] VITALS: BP 114/64; PULSE 90; RESP 19; TEMP 36.6; O2SAT 98
--- NOTE | 2024-06-15 15:43 | ED.GENADULT ---
HPI - General Adult General Chief complaint: Nausea/Vomiting/Diarrhea Stated complaint: sent by pcp for IV fluids Time Seen by Provider: 06/15/24 20:25 Source: patient, RN notes reviewed and old records reviewed Mode of arrival: ambulatory Limitations: no limitations History of Present Illness ED Provider: Yolis COLLAZO narrative: 73-year-old female presents for evaluation of ?IV fluids. ? Patient has had 3 recent admissions due to dehydration, colitis. At the end of April, last month she tested positive for EPEC Her most recent admission was on 06/03/2024 and discharged on 06/08/2024. She has had multiple CT images of the abdomen pelvis, endoscopy and colonoscopy She states that she has actually not had any diarrhea today. She denies any abdominal pain currently. She reports that she went to her PCP for routine follow-up They had a hard time getting an IV to give her IV fluids, so she was sent to the ER for IV fluids. She reports decreased oral intake including water Related Data Home Medications ?Medication ?Instructions ?Recorded ?Confirmed albuterol sulfate 90 mcg/actuation 2 puff inhalation Q6H PRN 06/07/23 06/03/24 aerosol inhaler Shortness Of Breath carisoprodol 350 mg tablet 350 mg PO BEDTIME 06/07/23 06/03/24 carvedilol 6.25 mg tablet 6.25 mg PO BID 06/07/23 06/03/24 ezetimibe 10 mg tablet 10 mg PO DAILY 06/07/23 06/03/24 furosemide 20 mg tablet 20 mg PO DAILY PRN Salt levels 06/07/23 06/03/24 inclisiran 284 mg/1.5 mL 284 mg subcut [id number] 06/07/23 06/03/24 subcutaneous syringe (Leqvio) mometasone 200 mcg/actuation HFA 2 puff inhalation DAILY 06/07/23 06/03/24 aerosol inhaler (Asmanex HFA) montelukast 10 mg tablet 10 mg PO BEDTIME 06/07/23 06/03/24 omeprazole 20 mg capsule,delayed 20 mg PO BID@0630,1630 06/07/23 06/03/24 release cyclosporine 0.05 % eye drops in a 1 drp ophthalmic (eye) BID 05/13/24 06/03/24 dropperette (Restasis) propranolol 10 mg tablet 10 mg PO BEDTIME PRN anxiety 05/13/24 06/03/24 melatonin 10 mg tablet 10 mg PO BEDTIME 05/21/24 06/03/24 olmesartan 40 mg tablet 40 mg PO DAILY 05/21/24 06/03/24 Previous Rx's ?Medication ?Instructions ?Recorded ondansetron 4 mg disintegrating 4 mg PO Q8H PRN nausea and 05/17/24 tablet vomiting #20 tabs Allergies Allergy/AdvReac Type Severity Reaction Status Date / Time acetaminophen [From TYLENOL] Allergy Intermediate ITCHING Verified 06/15/24 15:46 epinephrine [EPINEPHRINE] Allergy Intermediate TACHYCARDIA Verified 06/15/24 15:46 iodine [IODINE] Allergy Intermediate RASH Verified 06/15/24 15:46 Penicillins [PENICILLINS] Allergy Intermediate ITCHING/HIV Verified 06/15/24 15:46 ES Sulfa (Sulfonamide Allergy Intermediate NAUSEA Verified 06/15/24 15:46 Antibiotics) [SULFA (SULFONAMIDE ANTIBIOTICS)] egg [EGG] Allergy Mild SENSITIVITY Verified 06/15/24 15:46 diclofenac [DICLOFENAC] Allergy Unknown HIVES Verified 06/15/24 15:46 levofloxacin [From LEVAQUIN] Allergy Unknown SEVERE Verified 06/15/24 15:46 ITCHING meperidine [Demerol] Allergy Unknown Rash Verified 06/15/24 15:46 penicillin V Allergy Unknown Rash Verified 06/15/24 15:46 procaine [From NOVOCAIN] Allergy Unknown UNKNOWN Verified 06/15/24 15:46 doxycycline AdvReac Stomach Verified 06/15/24 15:46 Upset SHELLFISH Allergy Severe ANAPHYLAXIS Uncoded 06/15/24 15:46 eggs Allergy Unknown Rash Uncoded 06/15/24 15:46 Novocain Allergy Unknown Rash Uncoded 06/15/24 15:46 From DEMEROL AdvReac Intermediate HYPOTENSION Uncoded 06/15/24 15:46 Review of Systems Constitutional: Constitutional: Denies body ache(s), Denies chills and Denies fever(s) ENT: Denies dizziness Cardiovascular: Cardiovascular: Denies chest pain Gastrointestinal: Gastrointestinal: Denies abdominal pain, Denies melena, Denies hematochezia, Denies diarrhea and Denies loose stools Neurologic: Denies dizziness PMFSH Past Medical History Medical History Hypertension Mitral valve prolapse Lupus GERD (gastroesophageal reflux disease) COVID-19 long hauler Hypoglycemia Asthma Hyperlipidemia Fibromyalgia Social History Social History Household Members: Spouse Housing: House Do you presently have visiting nurse or other home services: No Alcohol intake: never Comment: pt. refusing bed alarm . Patient Tobacco Use Status: Never used Tobacco e-Cigarette/Vaping Use: Never Used Second Hand Smoke Exposure: No Advance Directives: Yes Advance Directives on File: Yes Advance Directives Date on File: 06/08/23 Do you have a plan to hurt others: No Plan service: No Physical Exam ED Vital Signs: Vital Signs - 24 hr 06/15/24 15:43 Temperature 98 F Pulse Rate 90 Respiratory Rate 19 Blood Pressure 114/64 Pulse Oximetry 98 Oxygen Delivery Method Room Air BMI result Body Mass Index 20.0 Const General: healthy appearing, comfortable, no acute distress, alert and awake Nutritional Appearance: thin and underweight Orientation/consciousness: patient oriented x3 HENMT Head: Yes normocephalic and Yes atraumatic Eyes Eyelids: Yes eyelids normal Conjunctivae: conjunctivae normal Sclerae: sclerae normal Corneas: corneas normal Pupils: Equal, round and reactive pupils present EOM: EOMs intact bilaterally Neck Neck: Yes full ROM Resp Effort & Inspection: normal respiratory effort, able to speak in complete sentences and not labored Skin General skin exam: elasticity normal Neuro General: patient oriented x3 Cranial nerves: Yes Equal, round and reactive pupils present and Yes Bilaterally intact EOM present Cognition (Neuro): normal cognition Extrem Other: Moving all extremities well without any obvious deformities Course Course Course Narrative: This is an RME done by LELIA Rooney: Additional HPI, ROS, PE not included below will be deferred to primary provider. 73 year old F presenting for IVF per PCP referral. Pt has had multiple visits in this facility for similar complaints of dehydration. Pt admits to consistent n/v/d with associated back pain. Pt has been having infrequent urination. Denies cp or sob. Plan - labs Appearance: Alert.? Oriented X3.? No acute cardiopulmonary distress distress.? Head: Normocephalic, atraumatic, no step-offs or deformities Neck: Normal inspection.? Neck supple.? CVS: Pulses normal.? Respiratory: No respiratory distress.? Abdomen: Soft and nontender.? Skin: ? Normal skin color. Extremities: 5/5 strength to bilateral upper and lower extremities Neuro: Oriented X 3.? No motor deficit.? No sensory deficit. Medications Administered Discontinued Medications Generic Name Dose Route Start Last Admin Trade Name Freq PRN Reason Stop Dose Admin Sodium Chloride 1,000 mls @ 999 mls/hr 06/15/24 21:00 06/15/24 21:14 Ns IV 06/15/24 22:00 999 mls/hr .Q1H1M KARSTEN Administration Medical Decision Making Medical Decision Making MDM Narrative: 73-year-old female presents for evaluation of ?IV fluids. She did actually see her PCP this morning and was sent for IV fluids. She has no complaints or concerns at this time including no diarrhea today. She is not feel lightheaded or dizzy. She has no abdominal pain. The patient is not tachycardic, hypotensive and her renal function within normal limits, she is not clinically dehydrated, however given that her PCP is recommending IV fluids we will administer 1 L of IV fluids. Differential Diagnosis Differential Diagnoses: The differential diagnosis associated with the presentation includes Dehydration [place] Colitis IBS Lab Data [facility] Lab Attestation statement: I reviewed the patient's lab results. Electrolytes within normal limits, BUN and creatinine within normal limits 06/15/24 21:14 06/15/24 16:04 Labs: Lab Results 06/15/24 06/15/24 Range/Units 16:04 21:14 WBC 3.9 L (4.8-10.8) X10*3/uL RBC 4.61 (4.20-5.50) X10*6/uL Hgb 12.5 (12.0-16.0) g/dl Hct 39.0 (37.0-47.0) % MCV 84.6 (80.0-98.0) fL MCH 27.1 (27.0-33.0) pg MCHC 32.1 (31.0-35.0) g/dl RDW 14.0 (11.0-16.0) % Plt Count 203 (160-400) X10*3/uL MPV 10.5 (9.4-12.3) fL Immature Gran % (Auto) 0.3 (0.0-0.4) % Neut % (Auto) 49.3 (45-73) % Lymph % (Auto) 35.4 (20-40) % [place] % (Auto) 12.9 H (2-11) % Eos % (Auto) 1.6 (0-4) % Baso % (Auto) 0.5 (0-2) % Lymph # (Auto) 1.4 (1.2-4.9) X10*3/uL [place] # (Auto) 0.5 (0.1-1.2) X10*3/uL Eos # (Auto) 0.1 (0.0-0.4) X10*3/uL Baso # (Auto) 0.0 (0.0-0.2) X10*3/uL Abs Immat Gran (auto) 0.01 (0.00-0.03) X10*3/uL Absolute Neuts (auto) 1.9 L (2.0-8.3) x10*3/uL Absolute Nucleated RBC 0.000 (0.0-0.012) X10*3/uL Nucleated RBC % (auto) 0.0 (0.0-0.2) /100WBC Sodium 140 (135-145) mmol/L Potassium 3.8 (3.3-5.1) mmol/L Chloride 105 (96-108) mmol/L Carbon Dioxide 23 (22-29) mmol/L Anion Gap 16 (12-20) BUN 9 (9-16) mg/dL Creatinine 0.67 (0.5-1.4) mg/dL Estim Creat Clear Calc 57.2 Estimated GFR > 60 Random Glucose 80 (60-115) mg/dL Calcium 9.1 D (8.4-10.2) mg/dL Magnesium 1.8 (1.6-2.6) mg/dL Total Bilirubin 0.5 (0.0-1.0) mg/dL AST 170 H (5-31) U/L ALT 144 H (0-31) U/L Alkaline Phosphatase 96 (39-117) U/L Total Protein 6.3 L (6.5-8.0) g/dL Albumin 3.5 (3.5-5.0) g/dL Discharge Plan Discharge Clinical Impression: Dehydration Patient Disposition: Home, Self-Care Instructions: Dehydration (ED) Additional Instructions: Your workup today was reassuring. You were given 1 L of normal saline Follow-up with your primary doctor Prescriptions: No Action carisoprodol 350 mg tablet 350 mg PO BEDTIME carvedilol 6.25 mg tablet 6.25 mg PO BID omeprazole 20 mg capsule,delayed release(DR/EC) 20 mg PO BID@0630,1630 montelukast 10 mg tablet 10 mg PO BEDTIME furosemide 20 mg tablet 20 mg PO DAILY PRN (Reason: Salt levels) albuterol sulfate 90 mcg/actuation Hfa Aerosol Inhaler 2 puff INHALATION Q6H PRN (Reason: Shortness Of Breath) ezetimibe 10 mg tablet 10 mg PO DAILY Asmanex HFA 200 mcg/actuation HFA aerosol inhaler 2 puff INHALATION DAILY Leqvio 284 mg/1.5 mL syringe 284 mg subcut [id number] propranolol 10 mg tablet 10 mg PO BEDTIME PRN (Reason: anxiety) cyclosporine [Restasis] 0.05 % dropperette 1 drp ophthalmic (eye) BID ondansetron 4 mg tablet,disintegrating 4 mg PO Q8H PRN (Reason: nausea and vomiting) Qty: 20 1RF olmesartan 40 mg tablet 40 mg PO DAILY melatonin 10 mg Tablet 10 mg PO BEDTIME Print Language: B[place]
[2024-06-15 16:52] LABS: Alanine Aminotransferase 144 U/L (0-31); Albumin Level 3.5 g/dL (3.5-5.0); Alkaline Phosphatase 96 U/L (39-117); Anion Gap 16 (12-20); Aspartate Amino Transferase 170 U/L (5-31); Bilirubin Total 0.5 mg/dL (0.0-1.0); Blood Urea Nitrogen 9 mg/dL (9-16); Calcium 9.1 mg/dL (8.4-10.2); Carbon Dioxide 23 mmol/L (22-29); Chloride 105 mmol/L (96-108); Creatinine Clr Calc Pharmacy 57.2; Estimated Glomerular Filt Rate > 60; Glucose Random 80 mg/dL (60-115); Magnesium 1.8 mg/dL (1.6-2.6); Potassium 3.8 mmol/L (3.3-5.1); Sodium 140 mmol/L (135-145); Total Protein 6.3 g/dL (6.5-8.0)
[2024-06-15] MEDS: 0.9 % Sodium Chloride 1,000 ML 999 ML IV (21:14)
[2024-06-15 21:17] LABS: MANUAL DIFF FLAG NO
[2024-06-15 21:18] LABS: Basophils Percent Auto 0.5 % (0-2); Eosinophils Absolute Auto 0.1 X10*3/uL (0.0-0.4); Eosinophils Percent Auto 1.6 % (0-4); Hemoglobin 12.5 g/dl (12.0-16.0); Imm Gran Abs Auto 0.01 X10*3/uL (0.00-0.03); Imm Gran Pct Auto 0.3 % (0.0-0.4); Lymphocytes Absolute Auto 1.4 X10*3/uL (1.2-4.9); Lymphocytes Percent Auto 35.4 % (20-40); Mean Corpuscular HGB Conc 32.1 g/dl (31.0-35.0); Mean Corpuscular Hemoglobin 27.1 pg (27.0-33.0); Mean Corpuscular Volume 84.6 fL (80.0-98.0); Mean Platelet Volume 10.5 fL (9.4-12.3); Monocytes Absolute Auto 0.5 X10*3/uL (0.1-1.2); Monocytes Percent Auto 12.9 % (2-11); Neutrophils Absolute Auto 1.9 x10*3/uL (2.0-8.3); Neutrophils Percent Auto 49.3 % (45-73); Platelet Count 203 X10*3/uL (160-400); Red Blood Count 4.61 X10*6/uL (4.20-5.50); White Blood Count 3.9 X10*3/uL (4.8-10.8)
--- NOTE | 2024-06-15 22:32 | PC.NURSE ---
iv established. ivf infusing. previously unable to draw cbc labs as difficult draw, lab obtained and sent to lab. nad. call brito within reach.
[2024-06-15 22:41] VITALS: BP 148/71; PULSE 84; RESP 18; TEMP 36.6; O2SAT 98
[2024-06-15 22:47] VITALS: BP 148/71; PULSE 84; RESP 18; TEMP 36.6; O2SAT 98
== END 2024-06-15 22:47 | disposition home or self-care (01) ==
PROVIDERS: Physician Assistant; Emergency Provider Emergency Medicine; PCP Family Medicine
DX: E86.0 Dehydration (principal); I10 Essential (primary) hypertension; E78.5 Hyperlipidemia, unspecified; Z79.899 Other long term (current) drug therapy
CPT/HCPCS: 36415; 80053; 83735; 85025; 96360; 96361; 99283; 99284

== ENCOUNTER 2024-06-26 19:19 | Outpatient (REF) | payer OTHER, SELFPAY ==
--- NOTE | ~2024-06-26 | MR_ITS ---
EXAMINATION: MRI ABDOMEN WITHOUT CONTRAST MRCP CLINICAL INFORMATION: Evaluate pancreas, weight loss in 3 weeks, diarrhea. COMPARISON: CT abdomen/pelvis 06/03/2024. TECHNIQUE: Multiple routine MRI sequences through the abdomen without IV contrast. 3D MRCP images were processed on an independent workstation under concurrent supervision. FINDINGS: LUNG BASES: Lung bases are clear. LIVER: Loss of signal in the [id number] dual-echo images consistent with hepatic steatosis. Otherwise, the liver is normal in size and morphology. More pronounced focal signal loss is noted adjacent to the fissure of the falciform ligament (9:39), unchanged compared to 06/03/2024, most consistent with differential fatty infiltration. Otherwise, no suspicious liver lesions. GALLBLADDER AND BILIARY TREE: Cholecystectomy. Extrahepatic biliary ductal dilatation, not significantly changed compared to 06/03/2024 with gradual tapering of the CBD; for example, the upper third of the CBD measures 1.3 cm, the middle third measures 1 cm and the lower third measures 0.7 cm. No intrahepatic biliary ductal dilatation. No intraluminal biliary filling defects to suggest choledocholithiasis. No discrete obstructive masses in this limited noncontrast examination. SPLEEN: Normal size. No focal lesion. PANCREAS: Limited noncontrast examination. No main pancreatic ductal dilatation. No discrete focal lesion. No peripancreatic inflammatory changes. ADRENAL GLANDS: No adrenal mass. KIDNEYS AND URETERS: No hydronephrosis or mass. GASTROINTESTINAL: No evidence of bowel obstruction or ascites. Colonic diverticulosis without significant pericolonic inflammatory changes. LYMPHOVASCULAR STRUCTURES: Normal caliber aorta. No pathologically enlarged abdominal or retroperitoneal lymphadenopathy by short axis size criteria. OSSEOUS STRUCTURES: Stable anterolisthesis is of L4 on L5. Degenerative changes of the spine. No acute or aggressive-appearing osseous findings. MR/MR MRCP IMPRESSION: Unchanged indeterminant moderate extrahepatic biliary ductal dilatation, consider further evaluation with ERCP as clinically warranted. No discrete obstructive abnormalities are seen, although evaluation is limited in the absence of intravenous contrast. Hepatic steatosis. Electronically signed by: Suzy Marion MD 06/27/2024 08:39 AM EDT
== END 2024-06-26 19:20 | disposition home or self-care (01) ==
LOC: HO.MRI 19:19
PROVIDERS: PCP Family Medicine; Visit Provider Internal Medicine Gastroenterology
DX: K83.8 Other specified diseases of biliary tract (principal); R63.4 Abnormal weight loss; R19.7 Diarrhea, unspecified
CPT/HCPCS: 74181

== ENCOUNTER 2024-07-11 14:38 | Outpatient (REF) | payer OTHER, SELFPAY ==
[2024-07-11 16:24] LABS: C Reactive Protein 1.03 mg/dL (< or = 0.50)
[2024-07-12 13:53] LABS: Immunoglobulin A 252 mg/dL (70-320)
[2024-07-12 20:23] LABS: Transglutaminase Ab IgG <1.0 U/mL; Transglutaminase IgA <1.0 U/mL
== END 2024-07-11 14:39 | disposition home or self-care (01) ==
LOC: HO.LAB 14:38
PROVIDERS: PCP Internal Medicine; Visit Provider Internal Medicine Gastroenterology
DX: R19.7 Diarrhea, unspecified (principal); R63.4 Abnormal weight loss
CPT/HCPCS: 36415; 81405; 81479; 82397; 82784; 83520; 86140; 86364; 88346; 88350

== ENCOUNTER 2024-07-20 11:10 | Outpatient (REF) | payer OTHER, SELFPAY | END 2024-07-21 11:23 | disposition home or self-care (01) | LOC: HO.LNP 11:10 | PROVIDERS: PCP Family Medicine; Visit Provider Internal Medicine Gastroenterology | DX: Z13.89 Encounter for screening for other disorder (principal) ==

== ENCOUNTER 2024-07-21 11:22 | Outpatient (AMB) | payer OTHER, SELFPAY ==
--- NOTE | 2024-07-21 11:24 | A.OFFVIS_ITS ---
Vital Signs 07/21/24 11:34 Height 5 ft 2 in Weight 102 lb BMI 18.7 BP 131/65 Blood Pressure Location Lt brachial Position Sitting Pulse 72 Intake Visit Reasons: follow up CG Intake Note: Patient new consult for CG Patient cc: abdominal discomfort, constipation with occasional dizziness. Denies any other GI issues for today. Hospice Manager Required: No Accompanied by: Self / Same As Patient Allergies acetaminophen [From TYLENOL] Allergy (Intermediate, Verified 09/05/24 17:34) ITCHING epinephrine [EPINEPHRINE] Allergy (Intermediate, Verified 09/05/24 17:34) TACHYCARDIA iodine [IODINE] Allergy (Intermediate, Verified 09/05/24 17:34) RASH Penicillins [PENICILLINS] Allergy (Intermediate, Verified 09/05/24 17:34) ITCHING/HIVES Sulfa (Sulfonamide Antibiotics) [SULFA (SULFONAMIDE ANTIBIOTICS)] Allergy (Intermediate, Verified 09/05/24 17:34) NAUSEA egg [EGG] Allergy (Mild, Verified 09/05/24 17:34) SENSITIVITY diclofenac [DICLOFENAC] Allergy (Unknown, Verified 09/05/24 17:34) HIVES levofloxacin [From LEVAQUIN] Allergy (Unknown, Verified 09/05/24 17:34) SEVERE ITCHING meperidine [Demerol] Allergy (Unknown, Verified 09/05/24 17:34) Rash penicillin V Allergy (Unknown, Verified 09/05/24 17:34) Rash procaine [From NOVOCAIN] Allergy (Unknown, Verified 09/05/24 17:34) UNKNOWN doxycycline Adverse Reaction (Verified 09/05/24 17:34) Stomach Upset SHELLFISH Allergy (Severe, Uncoded 06/15/24 15:46) ANAPHYLAXIS eggs Allergy (Unknown, Uncoded 06/15/24 15:46) Rash Novocain Allergy (Unknown, Uncoded 06/15/24 15:46) Rash goat/wool/feathers Allergy (Uncoded 09/05/24 17:32) Itching From DEMEROL Adverse Reaction (Intermediate, Uncoded 06/15/24 15:46) HYPOTENSION Medication List - Last Reconciled 07/21/24 by Fern Blackburn MD albuterol sulfate 90 mcg/actuation 2 puffs inhalation Q6H PRN carisoprodol 350 mg PO BEDTIME cyclosporine 0.05% (Restasis) 1 drp ophthalmic (eye) BID ezetimibe 10 mg PO DAILY magnesium oxide 250 mg PO DAILY melatonin 10 mg PO BEDTIME mometasone 200 mcg/actuation (Asmanex HFA) 2 puffs inhalation DAILY montelukast 10 mg PO BEDTIME olmesartan 40 mg PO DAILY omeprazole 20 mg PO BID@0630,1630 ondansetron 4 mg PO Q8H PRN propranolol 10 mg PO BEDTIME PRN HPI HPI follow up CG: Details: GI clinic visit for this 73 year old female with lupus, HTN, HLD, MVP with valve calcifiation, fibromyalgia, asthma, GERD, and migraine HAs for follow-up of abdominal pain, nausea and diarrhea after recent hospitalization at [facility] [place] TODAY'S VISIT: Patient cc: abdominal discomfort, constipation with occasional dizziness. Pt states diarrhea has resolved and has been constipated x 3 weeks Appetite is very good always hungry and taking small meals. Appetite and taste is coming back Has gained 1 lb over the last week (was 98 lbs last week) Had to use a cane for a while since she was feeling dizzy Patient can have a constant throat irritation (? post nasal drip) and denies heartburn, dysphagia. Takes a nausea pill once a day Notes abdominal soreness in the upper abdomen/intestines In the past she took food and took Ibuprofen after meals to help with abdominal pain and had stopped taking it. She would like to resume - since she does not want to take narcotics. Has a BM 2-3 times a day with marble like stools - plans to start taking colace. Denies recent black stools or rectal bleeding. Has developed hemorrhoids after having diarrhea recently (denies bleeding) Muscles in the back are always hurting and its painful to get up She was taking Ibuprofen 200 mg (two tab at bedtime) for the past several years. Stopped Ibuprofen since her hospitalization and she would like to resume - prescribed Celecoxib (pt is allergic to Diclofenac) Patient has MVP (valve is calcified now) and asthma and denies loud snoring or sleep apnea Denies being on chronic anticoagulation. Patient denies known family history of colon polyps, colon cancer or other GI malignancies. LABS IN [facility] : Reviewed - celiac serologies were normal, IBD serologies were positive for Crohn's disease Elevated chromogranin A of 505 (can be increased with PPI use) Normal urine 5HIAA CRP 1.03, elevated transaminases IMAGING STUDIES: Reviewed 8/16/[address] SCAN and 06/26/24 MRCP ENDOSCOPIC STUDIES: 06/06/24 EGD AND COLON WERE PERFORMED BY DR HA: Impression: 1. Normal esophagus 2. Abhay erosions (biopsy) 3. Gastric polyps 3. Normal duodenal (biopsy) 4. Normal colon and T.I mucosa (biopsy) 5. One polyp removed from the colon 6. Internal and external hemorrhoids Recommendations:?? * No obvious mucosal abnormality to explain on going diarrhea. * Follow-up path results * Avoid NSAIDs * Poor prep in T.C. Repeat colonoscopy within 1-2 years if pt has not had a high quality colonoscopy within the last 5 years. * Labs for functional NET pending BIOPSIES SHOWED: A. Duodenum, biopsy: Chronic active duodenitis with moderate to marked villous blunting, surface erosion and increased intraepithelial lymphocytes (see comment). B. Stomach, random, biopsy: Gastric antral mucosa with mild chronic inactive gastritis and increased intraepithelial lymphocytes; negative for Helicobacter pylori, intestinal metaplasia and dysplasia (see comment). C. Colon, hepatic flexure, polypectomy: Tubular adenoma; negative for high-grade dysplasia. D. Colon, right side, biopsy: Colonic mucosa within normal limits; negative for active, chronic or microscopic colitis. E. Colon, left side, biopsy: Colonic mucosa within normal limits; negative for active, chronic or microscopic colitis. COMMENT (A&B): The histologic findings raise the possibility of celiac disease but cannot completely exclude infection, drug/medication effect, inflammatory bowel disease, lymphocytic gastritis, and non-specific gastritis. Clinical correlation is advised PAST GI HISTORY BY REVIEW OF MEDICAL RECORDS: 05/16/24 PT WAS SEEN DURING HOSPITALIZATION AT [facility] [place] Reason for consult: Abdominal pain, nausea and diarrhea 73 YF with lupus, HTN, HLD, fibromyalgia, asthma, GERD, and migraines who seen at [facility] [place] ED with?nausea, diarrhea, and abdominal x5-6 days. Pt reported she thought she was experiencing a dental implant infection secondary to upper right jaw pain and swelling on 05/06/24. She saw her dentist and was seen in urgent care and was started on doxycycline. Pt noted intractable nausea, non-bloody diarrhea, and abdominal pain, as well as altered taste 1-2 days after she started taking doxycycline. Pt reported diarrhea episodes every half hour, and was unable to tolerate p.o. intake despite stopping the doxycycline on 05/09 or 05/10. She felt weak and tired and denied vomiting or significant dry heaving, chest pain/pressure, palpitations. No fever, chills. Pt reports wt loss of 4 lbs over the past week.. Per pt, her PCP had stool samples tested and which came back positive for occult blood. Pt came to [facility] [place] ED since she felt lightheaded, particularly weak, and had some SOB. Last episode of diarrhea earlier this morning. Of note, patient reports has been chronically taking ibuprofen 400 mg b.i.d. for many years. Follows with Dr. Rivero in Gastroenterology, and reports EGD 2 years ago that was negative for gastric ulcer, but did find a ?dent? in her stomach. Patient also reports she often gets hypoglycemic if she does not eat every few hours. Pt denies smoking or ETOH abuse. Pt is , lives with her and has 1 daughter. In the ED pt's vitals overall stable and WNL Labs were significant for VBG pH 7.27 with bicarb of 12, POC 55, and mildly elevated AST 48 and ALT 39. No leukocytosis. Stable H&H. Significant electrolyte abnormalities. Renal function around baseline serum osmolality WNL. Lactic acid WNL at 1.1. Troponin negative. Ethyl negative. Tested negative for flu, COVID, RSV. Pt was treated with ondansetron, IVF, Protonix, and and started on D5 1/2 NS. She was admitted to the hospital for treatment and further evaluation of hypoglycemia in the setting of intractable nausea and vomiting likely secondary to doxycycline and persistent ibuprofen use. ABD US SHOWED: Dilated common duct measuring up to 1.3 cm. This is unchanged compared with abdominal ultrasound 12/28/2018. FAMILY HISTORY: Positive for colon cancer in a paternal aunt in her early 40's (had surgery lived for another 25 yrs) Plan 73 YF with lupus, HTN, HLD, fibromyalgia, asthma, GERD, and migraines hospitalized at [facility] [place] on 05/13/24 with?nausea, diarrhea, and abdominal x5-6 days. Pt noted intractable nausea, non-bloody diarrhea, and abdominal pain, as well as altered taste 1-2 days after she started taking doxycycline. Stool studies were positive for entero-pathogenic E coli infection which is resolving. Pt reports improvement in diarrhea and has been tolerating oral diet. RECOMMENDATIONS: 1. Agree with IV fluids and antiemetics 2. Pt can FU in the GI clinic after discharge. She is due for a screening colonoscopy and prefers to have a stool cologuard instead. Stool Cologuard testing can be done as an outpatient once her acute symptoms have resolved. [facility] Medical History (Updated 08/11/24 @ 10:34 by Fern Blackburn MD) Hypertension Mitral valve prolapse Lupus GERD (gastroesophageal reflux disease) COVID-19 long hauler Hypoglycemia Asthma Hyperlipidemia Fibromyalgia Surgical History History of breast surgery Leg fracture, right Social History Household Members: Spouse Housing: House Do you presently have visiting nurse or other home services: No Alcohol intake: never Comment: pt. refusing bed alarm . Patient Tobacco Use Status: Never used Tobacco e-Cigarette/Vaping Use: Never Used Second Hand Smoke Exposure: No Advance Directives Date on File: 06/08/23 service: No Review of Systems Const Reports fatigue, Denies fever(s), Denies headache(s) and Reports weight loss Eyes Denies eye discharge and Denies irritation ENT Reports Normal hearing present, Denies dysphagia, Denies dizziness and Denies headache(s) Card Denies chest pain, Denies leg edema and Denies dyspnea on exertion Resp Denies cough, Denies dyspnea on exertion and Denies wheezing GI Reports abdominal pain (Mild), Denies change in bowel habits, Reports constipation, Denies dysphagia, Denies heartburn and Reports nausea Denies difficulty voiding, Denies dysuria and Reports vaginal pruritus (LMP 2009) Musc Reports back pain, Reports arthralgias and Reports other (arthritis) Skin/Breast Denies pruritus, Denies rash and Denies jaundice Neuro Reports Normal hearing present, Denies Abnormal speech present, Denies dizziness, Denies headache(s) and Denies seizure-like activity Psych Denies anxiety, Denies depression and Denies panic attacks Endo Denies cold intolerance, Reports fatigue, Denies flushing and Denies heat intole syl Ravi/Lymph Denies easy bleeding and Denies easy bruising Aller/Immun Denies wheezing Physical Exam Vital Signs: Last Vital Signs Pulse 72 07/21/24 11:34 BP 131/65 07/21/24 11:34 BMI result Body Mass Index 18.7 Const General: healthy appearing and no acute distress Nutritional Appearance: underweight Orientation/consciousness: patient oriented x3 Limitations: no limitations HEENT Head: Yes normal to inspection Ears: hearing grossly normal bilaterally Eyes Sclerae: sclerae normal Pupils: Equal, round and reactive pupils present Neck Neck: Yes normal visual inspection Chest Chest palpation & inspection: normal inspection of the chest Resp Effort & Inspection: normal respiratory effort Auscultation: clear to auscultation bilaterally Cardio Palpation: normal PMI Rate: regular rate Rhythm: regular rhythm Heart sounds: S1 normal heart sound present, S2 normal heart sound present and no murmurs GI Palpation (GI): Soft to palpation, Tenderness to palpation present (GI) (Mild diffuse abdominal tenderness) and No hepatosplenomegaly present Auscultation: normal bowel sounds Rectal Exam - Female: deferred Skin General skin exam: no rashes or lesions noted Neuro General: patient oriented x3, gait normal and moves all extremities Cranial nerves: Yes Equal, round and reactive pupils present and Yes Normal hearing present Speech: No Abnormal speech present Psych Appearance: grossly normal Mental Status: mental status grossly normal Assessment & Plan Assessment & Plan (1) Elevated LFTs: Code(s): R79.89 - Other specified abnormal findings of blood chemistry Category: Medical (2) Fibromyalgia: Code(s): M79.7 - Fibromyalgia Category: Medical (3) Abdominal pain: Code(s): R10.9 - Unspecified abdominal pain Category: Medical Plan 73 YF with lupus, HTN, HLD, fibromyalgia, asthma, GERD, and migraines hospitalized at [facility] [place] 05/13 to 05/15 and 05/21 to 05/24/24 with?nausea, diarrhea, and abdominal x 5-6 days. Pt was admitted with intractable nausea, non-bloody diarrhea, and abdominal pain and altered taste 1-2 days after she started taking doxycycline. Stool studies were positive for entero-pathogenic E coli infection. Diarrhea has resolved and has been constipated x 3 weeks Appetite is very good always hungry and taking small meals. Appetite and taste is coming back In the past she took food and took Ibuprofen after meals to help with abdominal pain and had stopped taking it. She would like to resume - since she does not want to take narcotics. Stopped Ibuprofen since her hospitalization and she would like to resume - prescribed Celecoxib (pt is allergic to Diclofenac) Patient has MVP (valve is calcified now) and asthma and denies loud snoring or sleep apnea Pt had an EGD and colon and findings as noted above Pt was advised labs and to stop Ibuprofen and use celecoxib 100 mg PO BID instead FU in 4 weeks Orders: Orders C Reactive Protein 07/21/24 R79.89 - Other specified abnormal findings of blood chemistry Lipase 07/21/24 R79.89 - Other specified abnormal findings of blood chemistry Liver Panel 07/21/24 R79.89 - Other specified abnormal findings of blood chem istry Complete Blood Count Auto Diff 07/21/24 R79.89 - Other specified abnormal findings of blood chemistry Medications: New celecoxib 100 mg PO BID 60 caps 3RF 30 days M79.7 - Fibromyalgia, R10.9 - Unspecified abdominal pain Coding Level of Care Code Est Pt Level 4 (20077) Diagnoses Elevated LFTs R79.89 Fibromyalgia M79.7 Abdominal pain R10.9 Time Spent (min) 30
[2024-07-21 11:34] VITALS: BP 131/65; PULSE 72; BMI 18.7
== END 2024-07-21 13:22 | disposition home or self-care (01) ==
PROVIDERS: PCP Family Medicine; Visit Provider Internal Medicine Gastroenterology
DX: R79.89 Other specified abnormal findings of blood chemistry (principal); M79.7 Fibromyalgia; R10.9 Unspecified abdominal pain
CPT/HCPCS: 99214

== ENCOUNTER 2024-08-11 09:08 | Outpatient (REF) | payer OTHER, SELFPAY ==
[2024-08-26 18:49] LABS: Pancreatic Elastase-1 >500 mcg/g
[2024-08-28 16:09] LABS: Calprotectin, Fecal 323 mcg/g
== END 2024-08-11 09:09 | disposition home or self-care (01) ==
LOC: HO.LNP 09:08
PROVIDERS: Visit Provider Internal Medicine Gastroenterology
DX: R19.7 Diarrhea, unspecified (principal); R63.4 Abnormal weight loss; K52.9 Noninfective gastroenteritis and colitis, unspecified; K50.90 Crohn's disease, unspecified, without complications
CPT/HCPCS: 82656; 83993

== ENCOUNTER 2024-08-11 09:44 | Outpatient (AMB) | payer OTHER, SELFPAY ==
--- NOTE | 2024-08-11 09:46 | A.OFFVIS_ITS ---
Vital Signs 08/11/24 09:51 Height 5 ft 2 in Weight 101 lb BMI 18.5 BP 106/55 L Blood Pressure Location Lt brachial Position Sitting Pulse 73 Intake Visit Reasons: Nausea and Loose Stools Intake Note: Patient follow up for Nauseas and loose stool. Patient cc: nauseas, burning sensation on esophagus, last Thursday she was with diarrhea and vomit, eating in small amount due she get sick with food. Occupational Therapist Rehab Manager Required: No Accompanied by: Family/Other Allergies acetaminophen [From TYLENOL] Allergy (Intermediate, Verified 09/05/24 17:34) ITCHING epinephrine [EPINEPHRINE] Allergy (Intermediate, Verified 09/05/24 17:34) TACHYCARDIA iodine [IODINE] Allergy (Intermediate, Verified 09/05/24 17:34) RASH Penicillins [PENICILLINS] Allergy (Intermediate, Verified 09/05/24 17:34) ITCHING/HIVES Sulfa (Sulfonamide Antibiotics) [SULFA (SULFONAMIDE ANTIBIOTICS)] Allergy (Intermediate, Verified 09/05/24 17:34) NAUSEA egg [EGG] Allergy (Mild, Verified 09/05/24 17:34) SENSITIVITY diclofenac [DICLOFENAC] Allergy (Unknown, Verified 09/05/24 17:34) HIVES levofloxacin [From LEVAQUIN] Allergy (Unknown, Verified 09/05/24 17:34) SEVERE ITCHING meperidine [Demerol] Allergy (Unknown, Verified 09/05/24 17:34) Rash penicillin V Allergy (Unknown, Verified 09/05/24 17:34) Rash procaine [From NOVOCAIN] Allergy (Unknown, Verified 09/05/24 17:34) UNKNOWN doxycycline Adverse Reaction (Verified 09/05/24 17:34) Stomach Upset SHELLFISH Allergy (Severe, Uncoded 06/15/24 15:46) ANAPHYLAXIS eggs Allergy (Unknown, Uncoded 06/15/24 15:46) Rash Novocain Allergy (Unknown, Uncoded 06/15/24 15:46) Rash goat/wool/feathers Allergy (Uncoded 09/05/24 17:32) Itching From DEMEROL Adverse Reaction (Intermediate, Uncoded 06/15/24 15:46) HYPOTENSION Medication List - Last Reconciled 08/11/24 by Fern Blackburn MD albuterol sulfate 90 mcg/actuation 2 puffs inhalation Q6H PRN carisoprodol 350 mg PO BEDTIME celecoxib 100 mg PO BID 30 days cyclosporine 0.05% (Restasis) 1 drp ophthalmic (eye) BID ezetimibe 10 mg PO DAILY magnesium oxide 250 mg PO DAILY melatonin 10 mg PO BEDTIME mometasone 200 mcg/actuation (Asmanex HFA) 2 puffs inhalation DAILY montelukast 10 mg PO BEDTIME olmesartan 40 mg PO DAILY omeprazole 20 mg PO BID@0630,1630 ondansetron 4 mg PO Q8H PRN propranolol 10 mg PO BEDTIME PRN HPI HPI Nausea and Loose Stools: Details: GI clinic visit for this 74 year old female with lupus, HTN, HLD, MVP with valve calcifiation, fibromyalgia, asthma, GERD, and migraine HAs for follow-up of abdominal pain, nausea and diarrhea after hospitalization at [facility] [place] 05/16 and 06/03/24 TODAY'S VISIT: Pt is accompanied by her daughter Patient cc: nauseas, burning sensation on esophagus, last Thursday she was with diarrhea and vomit, eating in small amount due she get sick with food. Had a relapse on 08/08 with projectile vomiting and diarrhea x hours Had 6-7 BMs and had 1 BM yesterday Gradually improved over the next few days Eating small meals - everything hurts - burning in her intestines She was freezing towards the end Lares exhausted towards the end Has costochondritis Normal BM hurts Complains of mouth sores for years - thought she had nutritional deficiency PAST VISITS: Pt states diarrhea has resolved and has been constipated x 3 weeks Appetite is very good always hungry and taking small meals. Appetite and taste is coming back Has gained 1 lb over the last week (was 98 lbs last week) Had to use a cane for a while since she was feeling dizzy Patient can have a constant throat irritation (? post nasal drip) and denies heartburn, dysphagia. Takes a nausea pill once a day Notes abdominal soreness in the upper abdomen/intestines In the past she took food and took Ibuprofen after meals to help with abdominal pain and had stopped taking it. She would like to resume - since she does not want to take narcotics. Has a BM 2-3 times a day with marble like stools - plans to start taking colace. Denies recent black stools or rectal bleeding. Has developed hemorrhoids after having diarrhea recently (denies bleeding) Muscles in the back are always hurting and its painful to get up She was taking Ibuprofen 200 mg (two tab at bedtime) for the past several years. Stopped Ibuprofen since her hospitalization and she would like to resume - prescribed Celecoxib (pt is allergic to Diclofenac) Patient has MVP (valve is calcified now) and asthma and denies loud snoring or sleep apnea Denies being on chronic anticoagulation. Patient denies known family history of colon polyps, colon cancer or other GI malignancies. PAST VISITS: Patient cc: abdominal discomfort, constipation with occasional dizziness. LABS IN [facility] : Reviewed - celiac serologies were normal, IBD serologies were positive for Crohn's disease Elevated chromogranin A of 505 (can be increased with PPI use) Normal urine 5HIAA CRP 1.03, elevated transaminases IMAGING STUDIES: Reviewed 06/03/[address] SCAN and 06/26/24 MRCP ENDOSCOPIC STUDIES: 06/06/24 EGD AND COLON WERE PERFORMED BY DR HA: Impression: 1. Normal esophagus 2. Abhay erosions (biopsy) 3. Gastric polyps 3. Normal duodenal (biopsy) 4. Normal colon and T.I mucosa (biopsy) 5. One polyp removed from the colon 6. Internal and external hemorrhoids Recommendations:?? * No obvious mucosal abnormality to explain on going diarrhea. * Follow-up path results * Avoid NSAIDs * Poor prep in T.C. Repeat colonoscopy within 1-2 years if pt has not had a high quality colonoscopy within the last 5 years. * Labs for functional NET pending BIOPSIES SHOWED: A. Duodenum, biopsy: Chronic active duodenitis with moderate to marked villous blunting, surface erosion and increased intraepithelial lymphocytes (see comment). B. Stomach, random, biopsy: Gastric antral mucosa with mild chronic inactive gastritis and increased intraepithelial lymphocytes; negative for Helicobacter pylori, intestinal metaplasia and dysplasia (see comment). C. Colon, hepatic flexure, polypectomy: Tubular adenoma; negative for high-grade dysplasia. D. Colon, right side, biopsy: Colonic mucosa within normal limits; negative for active, chronic or microscopic colitis. E. Colon, left side, biopsy: Colonic mucosa within normal limits; negative for active, chronic or microscopic colitis. COMMENT (A&B): The histologic findings raise the possibility of celiac disease but cannot completely exclude infection, drug/medication effect, inflammatory bowel disease, lymphocytic gastritis, and non-specific gastritis. Clinical correlation is advised PAST GI HISTORY BY REVIEW OF MEDICAL RECORDS: 05/16/24 PT WAS SEEN DURING HOSPITALIZATION AT [facility] [place] Reason for consult: Abdominal pain, nausea and diarrhea 73 YF with lupus, HTN, HLD, fibromyalgia, asthma, GERD, and migraines who seen at [facility] ED with?nausea, diarrhea, and abdominal x5-6 days. Pt reported she thought she was experiencing a dental implant infection secondary to upper right jaw pain and swelling on 05/06/24. She saw her dentist and was seen in urgent care and was started on doxycycline. Pt noted intractable nausea, non-bloody diarrhea, and abdominal pain, as well as altered taste 1-2 days after she started taking doxycycline. Pt reported diarrhea episodes every half hour, and was unable to tolerate p.o. intake despite stopping the doxycycline on 05/09 or 05/10. She felt weak and tired and denied vomiting or significant dry heaving, chest pain/pressure, palpitations. No fever, chills. Pt reports wt loss of 4 lbs over the past week.. Per pt, her PCP had stool samples tested and which came back positive for occult blood. Pt came to [facility] ED since she felt lightheaded, particularly weak, and had some SOB. Last episode of diarrhea earlier this morning. Of note, patient reports has been chronically taking ibuprofen 400 mg b.i.d. for many years. Follows with Dr. Rivero in Gastroenterology, and reports EGD 2 years ago that was negative for gastric ulcer, but did find a ?dent? in her stomach. Patient also reports she often gets hypoglycemic if she does not eat every few hours. Pt denies smoking or ETOH abuse. Pt is , lives with her and has 1 daughter. In the ED pt's vitals overall stable and WNL Labs were significant for VBG pH 7.27 with bicarb of 12, POC 55, and mildly elevated AST 48 and ALT 39. No leukocytosis. Stable H&H. Significant electrolyte abnormalities. Renal function around baseline serum osmolality WNL. Lactic acid WNL at 1.1. Troponin negative. Ethyl negative. Tested negative for flu, COVID, RSV. Pt was treated with ondansetron, IVF, Protonix, and and started on D5 1/2 NS. She was admitted to the hospital for treatment and further evaluation of hypoglycemia in the setting of intractable nausea and vomiting likely secondary to doxycycline and persistent ibuprofen use. ABD US SHOWED: Dilated common duct measuring up to 1.3 cm. This is unchanged compared with abdominal ultrasound 12/28/2018. FAMILY HISTORY: Positive for colon cancer in a paternal aunt in her early 40's (had surgery lived for another 25 yrs) Plan 73 YF with lupus, HTN, HLD, fibromyalgia, asthma, GERD, and migraines hospitalized at [facility] [place] on 05/13/24 with?nausea, diarrhea, and abdominal x5-6 days. Pt noted intractable nausea, non-bloody diarrhea, and abdominal pain, as well as altered taste 1-2 days after she started taking doxycycline. Stool studies were positive for entero-pathogenic E coli infection which is resolving. Pt reports improvement in diarrhea and has been tolerating oral diet. RECOMMENDATIONS: 1. Agree with IV fluids and antiemetics 2. Pt can FU in the GI clinic after discharge. She is due for a screening colonoscopy and prefers to have a stool cologuard instead. Stool Cologuard testing can be done as an outpatient once her acute symptoms have resolved [facility] Medical History (Updated 08/11/24 @ 10:34 by Fern Blackburn MD) Hypertension Mitral valve prolapse Lupus GERD (gastroesophageal reflux disease) COVID-19 long hauler Hypoglycemia Asthma Hyperlipidemia Fibromyalgia Surgical History History of breast surgery Leg fracture, right Social History Household Members: Spouse Housing: House Do you presently have visiting nurse or other home services: No Alcohol intake: never Comment: pt. refusing bed alarm . Patient Tobacco Use Status: Never used Tobacco e-Cigarette/Vaping Use: Never Used Second Hand Smoke Exposure: No Advance Directives Date on File: 06/08/23 service: No Review of Systems Const Reports fatigue, Denies fever(s), Denies headache(s) and Reports weight loss Eyes Denies eye discharge and Denies irritation ENT Reports Normal hearing present, Denies dysphagia, Denies dizziness and Denies headache(s) Card Denies chest pain, Denies leg edema and Denies dyspnea on exertion Resp Denies cough, Denies dyspnea on exertion and Denies wheezing GI Reports abdominal pain (Mild), Denies change in bowel habits, Reports constipation, Denies dysphagia, Denies heartburn and Reports nausea Denies difficulty voiding, Denies dysuria and Reports vaginal pruritus (LMP 2009) Musc Reports back pain, Reports arthralgias and Reports other (arthritis) Skin/Breast Denies pruritus, Denies rash and Denies jaundice Neuro Reports Normal hearing present, Denies Abnormal speech present, Denies dizziness, Denies headache(s) and Denies seizure-like activity Psych Denies anxiety, Denies depression and Denies panic attacks Endo Denies cold intolerance, Reports fatigue, Denies flushing and Denies heat intolerance Ravi/Lymph Denies easy bleeding and Denies easy bruising Aller/Immun Denies wheezing Physical Exam Vital Signs: Last Vital Signs Pulse 73 08/11/24 09:51 BP 106/55 L 08/11/24 09:51 BMI result Body Mass Index 18.5 Const General: healthy appearing and no acute distress Nutritional Appearance: underweight Orientation/consciousness: patient oriented x3 Limitations: no limitations HEENT Head: Yes normal to inspection Ears: hearing grossly normal bilaterally Eyes Sclerae: sclerae normal Pupils: Equal, round and reactive pupils present Neck Neck: Yes normal visual inspection Chest Chest palpation & inspection: normal inspection of the chest Resp Effort & Inspection: normal respiratory effort Auscultation: clear to auscultation bilaterally Cardio Palpation: normal PMI Rate: regular rate Rhythm: regular rhythm Heart sounds: S1 normal heart sound present, S2 normal heart sound present and no murmurs GI Palpation (GI): Soft to palpation, Tenderness to palpation present (GI) (Mild diffuse abdominal tenderness) and No hepatosplenomegaly present Auscultation: normal bowel sounds Rectal Exam - Female: deferred Skin General skin exam: no rashes or lesions noted Neuro General: patient oriented x3, gait normal and moves all extremities Cranial nerves: Yes Equal, round and reactive pupils present and Yes Normal hearing present Speech: No Abnormal speech present Psych Appearance: grossly normal Mental Status: mental status grossly normal Assessment & Plan Assessment & Plan (1) Weight loss: Code(s): R63.4 - Abnormal weight loss Category: Medical (2) Dilated cbd, acquired: Code(s): K83.8 - Other specified diseases of biliary tract Category: Medical (3) Elevated LFTs: Code(s): R79.89 - Other specified abnormal findings of blood chemistry Category: Medical (4) Abdominal pain: Code(s): R10.9 - Unspecified abdominal pain Category: Medical (5) Chronic diarrhea: Code(s): K52.9 - Noninfective gastroenteritis and colitis, unspecified Category: Medical (6) Crohn's disease: Code(s): K50.90 - Crohn's disease, unspecified, without complications Category: Medical Plan 73 YF with lupus, HTN, HLD, fibromyalgia, asthma, GERD, and migraines ho spitalized at [facility] 05/13 to 05/15 and 05/21 to 05/24/24 with?nausea, diarrhea, and abdominal x 5-6 days. Pt was admitted with intractable nausea, non-bloody diarrhea, and abdominal pain and altered taste 1-2 days after she started taking doxycycline. Stool studies were positive for entero-pathogenic E coli infection. Diarrhea has resolved and has been constipated x 3 weeks Appetite is very good always hungry and taking small meals. Appetite and taste is coming back In the past she took food and took Ibuprofen after meals to help with abdominal pain and had stopped taking it. She would like to resume - since she does not want to take narcotics. Stopped Ibuprofen since her hospitalization and she would like to resume - prescribed Celecoxib (pt is allergic to Diclofenac) Patient has MVP (valve is calcified now) and asthma and denies loud snoring or sleep apnea Pt had an EGD and colon and findings as noted above Pt was advised labs and to stop Ibuprofen and use celecoxib 100 mg PO BID instead 08/11/24 Had a relapse on 08/08 with projectile vomiting and diarrhea x hours Had 6-7 BMs and had 1 BM yesterday Gradually improved over the next few days Eating small meals - everything hurts - burning in her intestines IBD serologies were positive for Crohn's disease. Pt advised further evaluation with CT enterography, T spot To start Humira for Crohn's disease - she will come to the clinic for initial injection after approval is obtained from her insurance FU in 4 weeks Orders: Orders C Reactive Protein 08/11/24 K52.9 - Noninfective gastroenteritis and colitis, unspecified, K50.90 - Crohn's disease, unspecified, without complications PJ Reflex Titer and Pattern 08/11/24 K50.90 - Crohn's disease, unspecified, without complications, R79.89 - Other specified abnormal findings of blood chemistry Comprehensive Met. Panel 08/11/24 K50.90 - Crohn's disease, unspecified, without complications, R79.89 - Other specified abnormal findings of blood chemistry Vitamin D 25-OH Total 08/11/24 K50.90 - Crohn's disease, unspecified, without complications, R79.89 - Other specified abnormal findings of blood chemistry Zinc 08/11/24 K50.90 - Crohn's disease, unspecified, without complications, R79.89 - Other specified abnormal findings of blood chemistry Hepatitis B Surface Antigen 08/11/24 K50.90 - Crohn's disease, unspecified, without complications, R79.89 - Other specified abnormal findings of blood chemistry Hepatitis B Core Antibody 08/11/24 K50.90 - Crohn's disease, unspecified, without complications, R79.89 - Other specified abnormal findings of blood chemistry Immunoglobulin G Subclasses 08/11/24 K50.90 - Crohn's disease, unspecified, without complications, R79.89 - Other specified abnormal findings of blood chemistry Protein Electrophoresis, Serum 08/11/24 K50.90 - Crohn's disease, unspecified, without complications, R79.89 - Other specified abnormal findings of blood chemistry Prothrombin Time INR 08/11/24 K50.90 - Crohn's disease, unspecified, without complications, R79.89 - Other specified abnormal findings of blood chemistry CT enterography 08/11/24 K50.90 - Crohn's disease, unspecified, without complications, K52.9 - Noninfective gastroenteritis and colitis, unspecified, R10.9 - Unspecified abdominal pain [employer] 08/11/24 K52.9 - Noninfective gastroenteritis and colitis, unspecified, K50.90 - Crohn's disease, unspecified, without complications T Spot TB 08/11/24 K52.9 - Noninfective gastroenteritis and colitis, unspecified, K50.90 - Crohn's disease, unspecified, without complications Calprotectin, Fecal 08/12/24 K52.9 - Noninfective gastroenteritis and colitis, unspecified, K50.90 - Crohn's disease, unspecified, without complications Complete Blood Count Auto Diff 08/11/24 K50.90 - Crohn's disease, unspecified, without complications, R79.89 - Other specified abnormal findings of blood chemistry Vitamin B12 and Folate 08/11/24 K50.90 - Crohn's disease, unspecified, without complications, R79.89 - Other specified abnormal findings of blood chemistry Hepatitis B Surface Antibody 08/11/24 K50.90 - Crohn's disease, unspecified, without complications, R79.89 - Other specified abnormal findings of blood chemistry Magnesium 08/11/24 K52.9 - Noninfective gastroenteritis and colitis, unspecified Lipase 08/11/24 K52.9 - Noninfective gastroenteritis and colitis, unspecified Medications: New adalimumab (Humira(CF) Pen Crohn's-Ulc Colitis-Hid Sup Strt) inject two - 80 mg/0.8 mL pens on Day 1; inject one - 80 mg/0.8 mL pen on Day 15 of therapy subcut 3 ea 0RF 2 weeks K50.90 - Crohn's disease, unspecified, without complications adalimumab (Humira) 40 mg subcutaneously; 2 ea 3RF 1 month K50.90 - Crohn's disease, unspecified, without complications Coding Level of Care Code Est Pt Level 4 (35591) Diagnoses Weight loss R63.4 Dilated cbd, acquired K83.8 Elevated LFTs R79.89 Abdominal pain R10.9 Chronic diarrhea K52.9 Crohn's disease K50.90 Time Spent (min) 25
[2024-08-11 09:51] VITALS: BP 106/55; PULSE 73; BMI 18.5
== END 2024-08-11 10:47 | disposition home or self-care (01) ==
PROVIDERS: PCP Family Medicine; Visit Provider Internal Medicine Gastroenterology
DX: R63.4 Abnormal weight loss (principal); K83.8 Other specified diseases of biliary tract; R79.89 Other specified abnormal findings of blood chemistry; R10.9 Unspecified abdominal pain; K52.9 Noninfective gastroenteritis and colitis, unspecified; K50.90 Crohn's disease, unspecified, without complications
CPT/HCPCS: 99214

== ENCOUNTER 2024-08-11 09:44 | Outpatient (REF) | payer OTHER, SELFPAY ==
[2024-08-11 11:47] LABS: Basophils Percent Auto 0.4 % (0-2); Eosinophils Absolute Auto 0.1 X10*3/uL (0.0-0.4); Eosinophils Percent Auto 1.9 % (0-4); Hematocrit 42.2 % (37.0-47.0); Hemoglobin 13.1 g/dl (12.0-16.0); Imm Gran Abs Auto 0.01 X10*3/uL (0.00-0.03); Imm Gran Pct Auto 0.2 % (0.0-0.4); Lymphocytes Absolute Auto 0.9 X10*3/uL (1.2-4.9); Lymphocytes Percent Auto 19.8 % (20-40); MANUAL DIFF FLAG SCAN; Mean Corpuscular Hemoglobin 27.8 pg (27.0-33.0); Mean Corpuscular Volume 89.4 fL (80.0-98.0); Monocytes Absolute Auto 0.4 X10*3/uL (0.1-1.2); Monocytes Percent Auto 8.2 % (2-11); Neutrophils Absolute Auto 3.3 x10*3/uL (2.0-8.3); Neutrophils Percent Auto 69.5 % (45-73); PLT CLUMP 1; Red Blood Count 4.72 X10*6/uL (4.20-5.50); Red Cell Distribution Width 14.7 % (11.0-16.0); SCAN SMEAR FLAG 1
[2024-08-11 11:54] LABS: Prothrombin Time 11.6 SEC (10.9-12.4)
[2024-08-11 12:22] LABS: Alanine Aminotransferase 47 U/L (0-31); Albumin Level 4.4 g/dL (3.5-5.0); Alkaline Phosphatase 93 U/L (39-117); Anion Gap 12 (12-20); Aspartate Amino Transferase 70 U/L (5-31); Bilirubin Total 0.7 mg/dL (0.0-1.0); Blood Urea Nitrogen 17 mg/dL (9-16); Calcium 9.8 mg/dL (8.4-10.2); Carbon Dioxide 27 mmol/L (22-29); Chloride 105 mmol/L (96-108); Estimated Glomerular Filt Rate > 60; Glucose Random 67 mg/dL (60-115); Lipase 22 U/L (8-78); Magnesium 1.9 mg/dL (1.6-2.6); Potassium 4.6 mmol/L (3.3-5.1); Sodium 139 mmol/L (135-145); Total Protein 7.5 g/dL (6.5-8.0)
[2024-08-11 12:26] LABS: White Blood Count 4.7 X10*3/uL (4.8-10.8)
[2024-08-11 12:27] LABS: Platelet Count 152 X10*3/uL (160-400); SLIDE REVIEW VERIFIED
[2024-08-11 12:39] LABS: HBS Num1 0.21 mIU/mL (0-7.99); HBc Num1 0.13 S/CO (0.00-0.79); HBsAGNum1 0.39 S/CO (0.00-0.99); Hepatitis B Core Antibody Nonreactive (Nonreactive); Hepatitis B Surface Antigen Negative (Negative); ~Hepatitis B Surface Antibody NONREACTIVE (Nonreactive)
[2024-08-11 12:41] LABS: Vitamin D 25-OH Total 34.2 ng/mL (>30)
[2024-08-11 12:48] LABS: Folate 11.4 ng/mL (> or = 4.0); Vitamin B12 326 pg/mL (200-900)
[2024-08-12 13:33] LABS: Prot Elec - Albumin 4.2 g/dL (3.8-4.8); Prot Elec - Alpha1 0.4 g/dL (0.2-0.3); Prot Elec - Alpha2 0.8 g/dL (0.5-0.9); Prot Elec - Beta 1 0.5 g/dL (0.4-0.6); Prot Elec - Beta 2 0.4 g/dL (0.2-0.5); Prot Elec - Total Protein 7.2 g/dL (6.1-8.1)
[2024-08-14 03:24] LABS: TS Negative Control Passed; TS Panel A 0; TS Panel B 0; TS Positive Control Passed; TSpotTB Negative (Negative)
[2024-08-15 16:03] LABS: Zinc 66 mcg/dL (60-130)
[2024-08-16 15:13] LABS: Anti Nuclear Antibody Screen NEGATIVE (NEGATIVE)
[2024-08-16 16:14] LABS: Immunoglobulin G Subclass 1 637 mg/dL (382-929); Immunoglobulin G Subclass 2 232 mg/dL (241-700); Immunoglobulin G Subclass 3 78 mg/dL (22-178); Immunoglobulin G Subclass 4 62.2 mg/dL (4-86); Immunoglobulin G Total 1010 mg/dL (600-1540)
== END 2024-08-11 09:45 | disposition home or self-care (01) ==
LOC: HO.LAB 09:44
PROVIDERS: PCP Family Medicine; Visit Provider Internal Medicine Gastroenterology
DX: K52.9 Noninfective gastroenteritis and colitis, unspecified (principal); K50.90 Crohn's disease, unspecified, without complications; R79.89 Other specified abnormal findings of blood chemistry
CPT/HCPCS: 36415; 80053; 81335; 82306; 82607; 82746; 82784; 83690; 83735; 84165; 84630; 85025; 85610; 86038; 86140; 86481; 86704; 86706; 87340

== ENCOUNTER 2024-08-23 12:35 | Outpatient (REF) | payer OTHER, SELFPAY | END 2024-08-23 12:36 | disposition home or self-care (01) | LOC: HO.CT 12:35 | PROVIDERS: PCP Family Medicine; Visit Provider Internal Medicine Gastroenterology | DX: Z13.89 Encounter for screening for other disorder (principal) ==

== ENCOUNTER 2024-08-24 15:21 | Outpatient (REF) | payer OTHER, SELFPAY ==
--- NOTE | ~2024-08-24 | CT_ITS ---
EXAMINATION: CT ABDOMEN AND PELVIS WITHOUT CONTRAST CLINICAL INFORMATION: Abdominal pain; Crohn's disease. COMPARISON: Prior CT examinations, most recently 06/03/2024; abdominal MRI/MRCP dated 06/26/2024. TECHNIQUE: Multidetector volumetric imaging was performed from the superior aspect of the liver through the pubic symphysis. Sagittal and coronal reformatted images were obtained on the technologist's workstation. This CT examination was performed using dose optimization techniques as appropriate, variously including the following: *Automated exposure control *Adjustment of mA and/or kV according to patient size (this includes techniques or standardized protocols for targeted exams where dose is matched to indication/reason for exam; i.e. extremities or head) *Use of iterative reconstruction technique DLP: 231 mGy-cm FINDINGS: LUNG BASES: There is mild bibasilar linear scar/subsegmental atelectasis. LIVER, GALLBLADDER, AND BILIARY TREE: The liver is normal in size, shape, and attenuation. No focal hepatic lesion or biliary ductal dilatation is present. The gallbladder is surgically absent. PANCREAS: Unremarkable. SPLEEN: Unremarkable. ADRENAL GLANDS: Unremarkable. KIDNEYS AND URETERS: The kidneys are normal in size, shape, and attenuation. No hydronephrosis, hydroureter, or calculi seen. No perinephric stranding. BLADDER: Unremarkable. GASTROINTESTINAL TRACT: There is mild diverticulosis, without acute diverticulitis. There are radiopaque items identified within bowel loops, possibly ingested tablets. The stool burden is moderate. No obstruction, free intraperitoneal air or abscess. There is no focal bowel wall thickening. The vermiform appendix is not identified with certainty; however, there is no finding to suggest appendicitis. ABDOMINAL WALL: There is a small fat-containing umbilical hernia. LYMPH NODES: Normal. VASCULAR: There is mild aortoiliac atherosclerotic calcification. No abdominal aortic aneurysm is seen. PELVIC VISCERA: The prostate and seminal vesicles are unremarkable. OSSEOUS STRUCTURES: At L4-5, there is marked degenerative disc disease, with disc space narrowing, vacuum disc phenomenon and a 9 mm anterolisthesis. There are small Schmorl's nodes at L4-5. A sclerotic, well marginated benign bone island is incidentally noted within the upper sacrum, unchanged from 03/17/2019. No acute or aggressive osseous finding is seen. CT/CT abdomen pelvis wo IV con IMPRESSION: 1. No bowel obstruction, free intraperitoneal air or abscess is seen. No focal bowel wall thickening is seen. There is mild diverticulosis, without acute diverticulitis. 2. There is a small fat-containing umbilical hernia. 3. At L4-5, there is marked degenerative disc disease. Fleischner guidelines were followed. Electronically signed by: Carrington Flynn MD 09/07/2024 02:25 PM EST
== END 2024-08-24 15:22 | disposition home or self-care (01) ==
LOC: HO.CT 15:21
PROVIDERS: PCP Family Medicine; Visit Provider Internal Medicine Gastroenterology
DX: K50.90 Crohn's disease, unspecified, without complications (principal); R10.9 Unspecified abdominal pain; K52.9 Noninfective gastroenteritis and colitis, unspecified
CPT/HCPCS: 74176

== ENCOUNTER 2024-09-05 17:08 | Emergency (ER) | payer OTHER, SELFPAY ==
--- NOTE | 2024-09-05 | ECG_ITS ---
Test Reason : CP Blood Pressure : / mmHG Vent. Rate : 094 BPM Atrial Rate : 094 BPM P-R Int : 132 ms QRS Dur : 070 ms QT Int : 348 ms P-R-T Axes : 066 017 040 degrees QTc Int : 435 ms Normal sinus rhythm Possible Left atrial enlargement Borderline ECG When compared with ECG of 02-JUN-2024 19:23, No significant change was found Referred By: Generic ED Physician Electronically Signed By:MIRA MCGILL MD
[2024-09-05 17:32] VITALS: BP 144/78; PULSE 95; RESP 16; TEMP 36.2; O2SAT 99; BMI 18.7
[2024-09-05 18:18] LABS: Hematocrit 44.1 % (37.0-47.0); Mean Corpuscular HGB Conc 31.7 g/dl (31.0-35.0); Mean Corpuscular Hemoglobin 27.9 pg (27.0-33.0); Mean Platelet Volume 10.8 fL (9.4-12.3); Platelet Count 204 X10*3/uL (160-400); Red Blood Count 5.01 X10*6/uL (4.20-5.50); Red Cell Distribution Width 14.8 % (11.0-16.0); White Blood Count 3.5 X10*3/uL (4.8-10.8)
[2024-09-05 18:24] LABS: Alanine Aminotransferase 75 U/L (0-31); Albumin Level 4.3 g/dL (3.5-5.0); Alkaline Phosphatase 101 U/L (39-117); Anion Gap 14 (12-20); Aspartate Amino Transferase 84 U/L (5-31); Bilirubin Total 0.4 mg/dL (0.0-1.0); Blood Urea Nitrogen 19 mg/dL (9-16); Carbon Dioxide 21 mmol/L (22-29); Chloride 109 mmol/L (96-108); Creatinine Clr Calc Pharmacy 47.6; Estimated Glomerular Filt Rate > 60; Glucose Random 72 mg/dL (60-115); Lipase 15 U/L (8-78); Potassium 4.5 mmol/L (3.3-5.1); Sodium 139 mmol/L (135-145); Total Protein 7.2 g/dL (6.5-8.0)
[2024-09-05 18:47] LABS: SLIDE REVIEW MANUAL DIFF
[2024-09-05 18:48] LABS: Atypical Lymph Absolute Manual 0.3 x10*3/uL; Atypical Lymphs Percent Manual 8 % (0-6); Basophils Percent Manual 1 % (0-2); Eosinophils Absolute Manual 0.1 X10*3/uL (0.0-0.4); Eosinophils Percent Manual 3 % (0-4); Lymphocytes Absolute Manual 0.8 X10*3/uL (1.2-4.9); Lymphocytes Percent Manual 24 % (20-40); Monocytes Absolute Manual 0.5 X10*3/uL (0.1-1.2); Monocytes Percent Manual 15 % (2-11); Neutrophils Percent Manual 49 % (45-73); Platelet Estimate NORMAL (NORMAL); Platelet Morphology Comment NORMAL; RBC Morphology NORMAL
[2024-09-05 18:49] LABS: Neutrophils Absolute Manual 1.7 X10*3/uL (2.0-8.3)
[2024-09-05 22:01] VITALS: BP 132/66; PULSE 103; RESP 16; TEMP 35.7; O2SAT 100
[2024-09-05] MEDS: Ondansetron ODT 4 MG TAB.RAPDIS TRANSLINGU (22:02)
--- NOTE | 2024-09-05 22:50 | PC.NURSE ---
Pt daughter approached triage stating her mom was feeling new CP and dizziness, pt vitals had just been checked, zofran given at this time. Trop order placed and collected, charge nurse aware.
--- NOTE | 2024-09-05 23:51 | ED.ABDPAIN ---
HPI - Abdominal Pain General Chief Complaint: Abdominal Pain Stated Complaint: nausea,diarrhea dehydrated Time Seen by Provider: 09/05/24 23:46 History of Present Illness ED Provider: chad COLLAZO narrative: Patient is 73 years old with history of lupus hypertension hyperlipidemia fibromyalgia asthma GERD been here multiple times for nausea vomiting recently diagnose with Crohn disease by serology started on Humira on 08/11 which she had not received it yet, comes here with similar episodes of nausea vomiting with poor oral intake GI center here for IV hydration patient has had 1 soft bowel movement earlier no blood in his stool Related Data Home Medications ?Medication ?Instructions ?Recorded ?Confirmed albuterol sulfate 90 mcg/actuation 2 puff inhalation Q6H PRN 06/07/23 08/11/24 aerosol inhaler Shortness Of Breath carisoprodol 350 mg tablet 350 mg PO BEDTIME 06/07/23 08/11/24 ezetimibe 10 mg tablet 10 mg PO DAILY 06/07/23 08/11/24 mometasone 200 mcg/actuation HFA 2 puff inhalation DAILY 06/07/23 08/11/24 aerosol inhaler (Asmanex HFA) montelukast 10 mg tablet 10 mg PO BEDTIME 06/07/23 08/11/24 omeprazole 20 mg capsule,delayed 20 mg PO BID@0630,1630 06/07/23 08/11/24 release cyclosporine 0.05 % eye drops in a 1 drp ophthalmic (eye) BID 05/13/24 08/11/24 dropperette (Restasis) propranolol 10 mg tablet 10 mg PO BEDTIME PRN anxiety 05/13/24 08/11/24 melatonin 10 mg tablet 10 mg PO BEDTIME 05/21/24 08/11/24 olmesartan 40 mg tablet 40 mg PO DAILY 05/21/24 08/11/24 magnesium oxide 250 mg PO DAILY 07/21/24 08/11/24 Previous Rx's ?Medication ?Instructions ?Recorded celecoxib 100 mg capsule 100 mg PO BID 30 days #60 caps 08/08/24 adalimumab 40 mg/0.8 mL 40 mg (0.8 mL) subcut .COMPLEX 1 08/15/24 subcutaneous syringe kit (Humira) month #2 ea adalimumab 80 mg/0.8 mL See Rx Instructions subcut 08/15/24 subcutaneous pen kit (Humira(CF) .COMPLEX 2 weeks #3 ea Pen Crohn's-Ulc Colitis-Hid Sup Strt) adalimumab-adaz 40 mg/0.4 mL 80 mg (0.8 mL) subcut Q2W 2 weeks 08/22/24 subcutaneous pen injector #0.8 mL adalimumab-adaz 80 mg/0.8 mL 40 mg (0.4 mL) subcut DAILY 2 days 08/30/24 subcutaneous pen injector #2.4 mL (Hyrimoz(CF) Pen Crohn-Ulc Colitis Start) ondansetron 4 mg disintegrating 4 mg PO Q8H PRN nausea and 09/05/24 tablet vomiting 30 days #30 tabs Allergies Allergy/AdvReac Type Severity Reaction Status Date / Time acetaminophen [From TYLENOL] Allergy Intermediate ITCHING Verified 09/05/24 17:34 epinephrine [EPINEPHRINE] Allergy Intermediate TACHYCARDIA Verified 09/05/24 17:34 iodine [IODINE] Allergy Intermediate RASH Verified 09/05/24 17:34 Penicillins [PENICILLINS] Allergy Intermediate ITCHING/HIV Verified 09/05/24 17:34 ES Sulfa (Sulfonamide Allergy Intermediate NAUSEA Verified 09/05/24 17:34 Antibiotics) [SULFA (SULFONAMIDE ANTIBIOTICS)] egg [EGG] Allergy Mild SENSITIVITY Verified 09/05/24 17:34 diclofenac [DICLOFENAC] Allergy Unknown HIVES Verified 09/05/24 17:34 levofloxacin [From LEVAQUIN] Allergy Unknown SEVERE Verified 09/05/24 17:34 ITCHING meperidine [Demerol] Allergy Unknown Rash Verified 09/05/24 17:34 penicillin V Allergy Unknown Rash Verified 09/05/24 17:34 procaine [From NOVOCAIN] Allergy Unknown UNKNOWN Verified 09/05/24 17:34 doxycycline AdvReac Stomach Verified 09/05/24 17:34 Upset SHELLFISH Allergy Severe ANAPHYLAXIS Uncoded 06/15/24 15:46 eggs Allergy Unknown Rash Uncoded 06/15/24 15:46 Novocain Allergy Unknown Rash Uncoded 06/15/24 15:46 goat/wool/feathers Allergy Itching Uncoded 09/05/24 17:32 From DEMEROL AdvReac Intermediate HYPOTENSION Uncoded 06/15/24 15:46 Review of Systems Review of Systems Yes all other systems are reviewed and are negative PMFSH Past Medical History Medical History Hypertension Mitral valve prolapse Lupus GERD (gastroesophageal reflux disease) COVID-19 long hauler Hypoglycemia Asthma Hyperlipidemia Fibromyalgia Surgical History History of breast surgery Leg fracture, right Social History Social History Household Members: Spouse Housing: House Do you presently have visiting nurse or other home services: No Alcohol intake: never Comment: pt. refusing bed alarm . Patient Tobacco Use Status: Never used Tobacco Smoked in Last 30 Days: No e-Cigarette/Vaping Use: Never Used Second Hand Smoke Exposure: No Use of substances other than those prescribed or required for medical reasons: No Advance Directives: No Advance Directives Information Provided: Yes Advance Directives Date on File: 06/08/23 service: No Physical Exam ED Vital Signs: Vital Signs - 24 hr 09/05/24 17:32 09/05/24 22:01 09/06/24 00:41 Temperature 97.1 F 96.2 F L 98.4 F Pulse Rate 95 103 H 85 Respiratory Rate 16 16 16 Blood Pressure 144/78 H 132/66 123/61 Pulse Oximetry 99 100 97 Oxygen Delivery Method Room Air Room Air Room Air 09/06/24 03:43 Temperature 98.4 F Pulse Rate 85 Respiratory Rate 16 Blood Pressure 123/61 Pulse Oximetry 97 Oxygen Delivery Method Room Air BMI result Body Mass Index 18.7 Appearance: Alert. Oriented X3. No acute distress. Eyes: PERRLA, No Nystagmus ENT: Pharynx normal. Oral Mucosa moist Neck: Normal inspection. Neck supple. CVS: Normal heart rate and rhythm. Pulses normal. Respiratory: No respiratory distress. Equal air entry bilateral, no wheezing/rales/rhonchi Abdomen: Soft and diffuse tenderness no focal tenderness Bowel sounds are present, no mass palpable, no CVA tenderness Skin: Skin warm and dry. Normal skin color. Normal skin turgor. Extremities: No lower extremity edema. No calf tenderness Neuro: Oriented X 3. No motor deficit. No sensory deficit.No cerebellar signs , cranial nerves II-XII intact Medical Decision Making Medical Decision Making MDM Narrative: Patient has received 2 L of IV fluids feeling much better will discharge patient home advised to follow with outpatient Lab Data [facility] Lab Attestation statement: I reviewed the patient's lab results. 09/05/24 18:04 09/05/24 18:04 Labs: Lab Results 09/05/24 09/05/24 09/06/24 Range/Units 18:04 22:47 00:37 WBC 3.5 L (4.8-10.8) X10*3/uL RBC 5.01 (4.20-5.50) X10*6/uL Hgb 14.0 (12.0-16.0) g/dl Hct 44.1 (37.0-47.0) % MCV 88.0 (80.0-98.0) fL MCH 27.9 (27.0-33.0) pg MCHC 31.7 (31.0-35.0) g/dl RDW 14.8 (11.0-16.0) % Plt Count 204 D (160-400) X10*3/uL MPV 10.8 (9.4-12.3) fL Immature Gran % (Auto) Cancelled Neut % (Auto) Cancelled Lymph % (Auto) Cancelled [place] % (Auto) Cancelled Eos % (Auto) Cancelled Baso % (Auto) Cancelled Lymph # (Auto) Cancelled [place] # (Auto) Cancelled Eos # (Auto) Cancelled Baso # (Auto) Cancelled Abs Immat Gran (auto) Cancelled Absolute Neuts (auto) Cancelled Absolute Nucleated RBC 0.000 (0.0-0.012) X10*3/uL Nucleated RBC % (auto) 0.0 (0.0-0.2) /100WBC Neutrophils % (Manual) 49 (45-73) % Lymphocytes % (Manual) 24 (20-40) % Atypical Lymphs % (Man) 8 H (0-6) % Monocytes % (Manual) 15 H (2-11) % Eosinophils % (Manual) 3 (0-4) % Basophils % (Manual) 1 (0-2) % Abs Neuts (Manual) 1.7 L (2.0-8.3) X10*3/uL Lymphocytes # (Manual) 0.8 L (1.2-4.9) X10*3/uL Atyp Lymphs # (Manual) 0.3 x10*3/uL Monocytes # (Manual) 0.5 (0.1-1.2) X10*3/uL Eosinophils # (Manual) 0.1 (0.0-0.4) X10*3/uL Platelet Estimate NORMAL (NORMAL) Plt Morphology Comment NORMAL RBC Morphology NORMAL Smear Tech's Comments MANUAL DIFF Sodium 139 (135-145) mmol/L Potassium 4.5 (3.3-5.1) mmol/L Chloride 109 H (96-108) mmol/L Carbon Dioxide 21 L (22-29) mmol/L Anion Gap 14 (12-20) BUN 19 H (9-16) mg/dL Creatinine 0.77 (0.5-1.4) mg/dL Estim Creat Clear Calc 47.6 Estimated GFR > 60 POC Glucose 63 (60-115) mg/dL Random Glucose 72 (60-115) mg/dL Calcium 9.0 D (8.4-10.2) mg/dL Total Bilirubin 0.4 (0.0-1.0) mg/dL AST 84 H (5-31) U/L ALT 75 H (0-31) U/L Alkaline Phosphatase 101 (39-117) U/L Troponin I High Sens < 2.7 (<3.5-17.0) ng/L Total Protein 7.2 (6.5-8.0) g/dL Albumin 4.3 (3.5-5.0) g/dL Lipase 15 (8-78) U/L Medications Administered Discontinued Medications Generic Name Dose Route Start Last Admin Trade Name Freq PRN Reason Stop Dose Admin Sodium Chloride 1,000 mls @ 999 mls/hr 09/06/24 00:02 09/06/24 01:49 Ns IV 09/06/24 01:02 Infused .Q1H1M ONE Infusion Sodium Chloride 1,000 mls @ 999 mls/hr 09/06/24 00:13 09/06/24 02:55 Ns IV 09/06/24 01:13 Infused .Q1H1M ONE Infusion Ondansetron HCl 4 mg 09/05/24 22:01 09/05/24 22:02 Ondansetron Odt 4 Mg Tab.Rapdis TRANSLINGU 09/05/24 22:02 4 mg ONCE ONE Administration Ondansetron HCl 4 mg 09/06/24 00:13 09/06/24 00:39 Ondansetron Hcl 4 Mg/2 Ml Vial IVPUSH 09/06/24 00:14 4 mg ONCE ONE Administration Discharge Plan Discharge Clinical Impression: Volume depletion Patient Disposition: Home, Self-Care Instructions: Acute Nausea and Vomiting (ED) Additional Instructions: Drink plenty of fluids Medicine for nausea 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 with a 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 plant 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 operator Prescriptions: No Action celecoxib 100 mg capsule 100 mg PO BID 30 Days Qty: 60 3RF adalimumab-adaz 40 mg/0.4 mL pen injector 80 mg subcut Q2W 14 Days Qty: 0.8 4RF Rx Instructions: inject two - 80 mg/0.8 mL pens on Day 1; inject one - 80 mg/0.8 mL pen on Day 15 of therapy subcut Hyrimoz Pen Crohn's-UC Starter 80 mg/0.8 mL pen injector 40 mg subcut DAILY 2 Days Qty: 2.4 0RF Rx Instructions: inject four - 40 mg/0.4 mL pens on Day 1; inject two - 40 mg/0.4 mL pen on Day 15 of therapy subcut ondansetron 4 mg tablet,disintegrating 4 mg PO Q8H PRN (Reason: nausea and vomiting) 30 Days Qty: 30 1RF carisoprodol 350 mg tablet 350 mg PO BEDTIME omeprazole 20 mg capsule,delayed release(DR/EC) 20 mg PO BID@0630,1630 montelukast 10 mg tablet 10 mg PO BEDTIME albuterol sulfate 90 mcg/actuation Hfa Aerosol Inhaler 2 puff INHALATION Q6H PRN (Reason: Shortness Of Breath) ezetimibe 10 mg tablet 10 mg PO DAILY Asmanex HFA 200 mcg/actuation HFA aerosol inhaler 2 puff INHALATION DAILY propranolol 10 mg tablet 10 mg PO BEDTIME PRN (Reason: anxiety) cyclosporine [Restasis] 0.05 % dropperette 1 drp ophthalmic (eye) BID olmesartan 40 mg tablet 40 mg PO DAILY melatonin 10 mg Tablet 10 mg PO BEDTIME magnesium oxide 250 mg magnesium tablet 250 mg PO DAILY Humira(CF) Pen [id number] 80 mg/0.8 mL pen injector kit See Rx Instructions subcut .COMPLEX 14 Days Qty: 3 0RF Rx Instructions: inject two - 80 mg/0.8 mL pens on Day 1; inject one - 80 mg/0.8 mL pen on Day 15 of therapy subcut Humira 40 mg/0.8 mL syringe kit 40 mg subcut .COMPLEX 30 Days Qty: 2 3RF Rx Instructions: 40 mg subcutaneously; Interventions: ED Discharge Assessment Last Done: 09/06/24 03:43 Discharge Date/Time: 09/06/24 03:44 Print Language: Turkmen
[2024-09-05 23:55] LABS: Troponin-I High Sensitivity < 2.7 ng/L (<3.5-17.0)
[2024-09-06] MEDS: 0.9 % Sodium Chloride 1,000 ML 999 ML IV ×2 (00:30→01:49)
[2024-09-06] MEDS: ondansetron HCL 4 MG/2 ML VIAL IVPUSH (00:39)
[2024-09-06 00:41] VITALS: BP 123/61; PULSE 85; RESP 16; TEMP 36.9; O2SAT 97
[2024-09-06 00:42] LABS: Glucose, Whole Blood 63 mg/dL (60-115)
[2024-09-06 03:43] VITALS: BP 123/61; PULSE 85; RESP 16; TEMP 36.9; O2SAT 97
== END 2024-09-06 03:44 | disposition home or self-care (01) ==
PROVIDERS: Emergency Provider Internal Medicine; PCP Family Medicine
DX: E86.9 Volume depletion, unspecified (principal); R11.2 Nausea with vomiting, unspecified; I10 Essential (primary) hypertension; E78.5 Hyperlipidemia, unspecified; J45.909 Unspecified asthma, uncomplicated
CPT/HCPCS: 36415; 80053; 82947; 83690; 84484; 85007; 85027; 93005; 96361; 96374; 99284; J2405

== ENCOUNTER → 2024-09-05 17:35 | Outpatient (BNV) | payer OTHER, SELFPAY | PROVIDERS: Emergency Provider Internal Medicine; PCP Family Medicine; Visit Provider Internal Medicine Cardiovascular Disease | DX: R07.9 Chest pain, unspecified (principal) | CPT/HCPCS: 93010 ==

== ENCOUNTER → 2024-09-09 10:14 | Outpatient (BNVA) | payer OTHER, SELFPAY | PROVIDERS: PCP Family Medicine; Visit Provider Internal Medicine Gastroenterology ==

== ENCOUNTER 2024-09-16 12:54 | Emergency (ER) | payer OTHER, SELFPAY ==
--- NOTE | 2024-09-16 13:09 | ECG_ITS ---
Test Reason : WEAKNESS Blood Pressure : / mmHG Vent. Rate : 086 BPM Atrial Rate : 086 BPM P-R Int : 124 ms QRS Dur : 076 ms QT Int : 366 ms P-R-T Axes : 068 013 040 degrees QTc Int : 437 ms Normal sinus rhythm Nonspecific T wave abnormality Abnormal ECG When compared with ECG of 05-SEP-2024 17:35, Nonspecific T wave abnormality now evident in Lateral leads Referred By: Katina Landin Electronically Signed By:BRITTNY DOBBINS
[2024-09-16 13:11] VITALS: BP 95/58; BP 98/53; PULSE 89; PULSE 90; RESP 16; TEMP 36.5; O2SAT 100; O2SAT 99; BMI 17.9
--- NOTE | 2024-09-16 13:11 | ED.WEAKNESS ---
HPI - Weakness General Chief complaint: Weakness Stated complaint: WEAKNESS DIARRHEA DEHYDRATED Time Seen by Provider: 09/16/24 13:07 Source: patient, EMS and old records reviewed Mode of arrival: EMS Limitations: no limitations History of Present Illness ED Provider: NAOMIE COLLAZO Narrative: 73 yo female with PMH of lupus, HTN, DM, migraines, fibromyalgia, GERD, asthma, Crohns recent Humira injection in the last week - first dose who comes in today with c/o weakness, fatigue, palpitations when she stands up. She ate pureed carrot, potatoes, turkey yesterday and soon after had diarrhea until midnight. No blood, no fevers. She feels very weak and tired. She tried to find an outpatient facility for fluids. She comes in with daughter with these complaints. Hx of EPEC in past. She has not had any diarrhea today. I do not see any enlarged artery on CT scan from most recent 08/24 Complaint: generalized weakness Onset (ago): day(s) (1) Duration: progressively worsening Location: generalized Migration: none Severity: severe Relieving factors: rest Exacerbating factors: movement and exertion Context: history of similar Associated symptoms: loss of appetite and other (palpitations when she stands, resolved diarrhea) Related Data Home Medications ?Medication ?Instructions ?Recorded ?Confirmed albuterol sulfate 90 mcg/actuation 2 puff inhalation Q6H PRN 06/07/23 08/11/24 aerosol inhaler Shortness Of Breath carisoprodol 350 mg tablet 350 mg PO BEDTIME 06/07/23 08/11/24 ezetimibe 10 mg tablet 10 mg PO DAILY 06/07/23 08/11/24 mometasone 200 mcg/actuation HFA 2 puff inhalation DAILY 06/07/23 08/11/24 aerosol inhaler (Asmanex HFA) montelukast 10 mg tablet 10 mg PO BEDTIME 06/07/23 08/11/24 omeprazole 20 mg capsule,delayed 20 mg PO BID@0630,1630 06/07/23 08/11/24 release cyclosporine 0.05 % eye drops in a 1 drp ophthalmic (eye) BID 05/13/24 08/11/24 dropperette (Restasis) propranolol 10 mg tablet 10 mg PO BEDTIME PRN anxiety 05/13/24 08/11/24 melatonin 10 mg tablet 10 mg PO BEDTIME 05/21/24 08/11/24 olmesartan 40 mg tablet 40 mg PO DAILY 05/21/24 08/11/24 magnesium oxide 250 mg PO DAILY 07/21/24 08/11/24 Previous Rx's ?Medication ?Instructions ?Recorded celecoxib 100 mg capsule 100 mg PO BID 30 days #60 caps 08/08/24 adalimumab 40 mg/0.8 mL 40 mg (0.8 mL) subcut .COMPLEX 1 08/15/24 subcutaneous syringe kit (Humira) month #2 ea adalimumab 80 mg/0.8 mL See Rx Instructions subcut 08/15/24 subcutaneous pen kit (Humira(CF) .COMPLEX 2 weeks #3 [facility] adalimumab-adaz 40 mg/0.4 mL 80 mg (0.8 mL) subcut Q2W 2 weeks 08/22/24 subcutaneous pen injector #0.8 mL adalimumab-adaz 80 mg/0.8 mL 40 mg (0.4 mL) subcut DAILY 2 days 08/30/24 subcutaneous pen injector #2.4 mL ([facility]rim[facility](CF) [facility]) ondansetron 4 mg disintegrating 4 mg PO Q8H PRN nausea and 09/05/24 tablet vomiting 30 days #30 tabs promethazine 25 mg tablet 25 mg PO Q8H PRN nausea and 09/09/24 vomiting 30 days #60 tabs Allergies Allergy/AdvReac Type Severity Reaction Status Date / Time acetaminophen [From TYLENOL] Allergy Intermediate ITCHING Verified 09/16/24 13:28 epinephrine [EPINEPHRINE] Allergy Intermediate TACHYCARDIA Verified 09/16/24 13:28 iodine [IODINE] Allergy Intermediate RASH Verified 09/16/24 13:28 Penicillins [PENICILLINS] Allergy Intermediate ITCHING/HIV Verified 09/16/24 13:28 ES Sulfa (Sulfonamide Allergy Intermediate NAUSEA Verified 09/16/24 13:28 Antibiotics) [SULFA (SULFONAMIDE ANTIBIOTICS)] egg [EGG] Allergy Mild SENSITIVITY Verified 09/16/24 13:28 diclofenac [DICLOFENAC] Allergy Unknown HIVES Verified 09/16/24 13:28 levofloxacin [From LEVAQUIN] Allergy Unknown SEVERE Verified 09/16/24 13:28 ITCHING meperidine [Demerol] Allergy Unknown Rash Verified 09/16/24 13:28 penicillin V Allergy Unknown Rash Verified 09/16/24 13:28 procaine [From NOVOCAIN] Allergy Unknown UNKNOWN Verified 09/16/24 13:28 doxycycline AdvReac Stomach Verified 09/16/24 13:28 Upset SHELLFISH Allergy Severe ANAPHYLAXIS Uncoded 06/15/24 15:46 eggs Allergy Unknown Rash Uncoded 06/15/24 15:46 Novocain Allergy Unknown Rash Uncoded 06/15/24 15:46 goat/wool/feathers Allergy Itching Uncoded 09/05/24 17:32 From DEMEROL AdvReac Intermediate HYPOTENSION Uncoded 06/15/24 15:46 Review of Systems Review of Systems: Constitutional : No Fever, No Chills, pos Fatigue ENT/Mouth : No sore throat, No Rhinorrhea Eyes: No Eye Pain, No Swelling, No Redness Cardiovascular : No Chest Pain, No SOB, No Dyspnea on Exertion, pos palpitations Respiratory : No Cough, No Sputum Gastrointestinal : No Nausea, No Vomiting, No Diarrhea, No abdominal Pain Genitourinary : No Dysuria, No Urinary Frequency, No Hematuria, Musculoskeletal : No joint pain, No Myalgias, No Joint Swelling Skin : No Skin Lesions, No rash Neuro : pos Weakness, No Numbness, No Dizziness, no Headache Psych : No Anxiety/Panic, No Depression All other systems reviewed and are negative PMFSH Past Medical History Attestation statement: The following information was validated with the patient. Source: old records reviewed Medical History Hypertension Mitral valve prolapse Lupus GERD (gastroesophageal reflux disease) COVID-19 long hauler Hypoglycemia Asthma Hyperlipidemia Fibromyalgia Surgical History History of breast surgery Leg fracture, right Social History Social History Household Members: Spouse Housing: House Do you presently have visiting nurse or other home services: No Alcohol intake: never Comment: pt. refusing bed alarm . Patient Tobacco Use Status: Never used Tobacco e-Cigarette/Vaping Use: Never Used Second Hand Smoke Exposure: No Advance Directives: No Advance Directives Information Provided: Yes Advance Directives Date on File: 06/08/23 Do you have a plan to hurt others: No Plan service: No Physical Exam Vital Signs: Vital Signs: Last Vital Signs Temp 97.7 F 09/16/24 13:11 Pulse 89 09/16/24 13:11 Resp 16 09/16/24 13:11 BP 95/58 L 09/16/24 13:11 Pulse Ox 99 09/16/24 13:11 O2 Del Method Room Air 09/16/24 13:11 BMI result Body Mass Index 17.9 Appearance: Alert. Oriented X3. No acute distress. frail thin Eyes: Pupils equal, round and reactive to light. ENT: Pharynx mildly dry MM Neck: Normal inspection. Neck supple. CVS: Normal heart rate and rhythm. Pulses normal. Respiratory: No respiratory distress. Breath sounds normal. Abdomen: Soft and non-tender. Skin: Skin warm and dry. pale skin color. Normal skin turgor. Extremities: No lower extremity edema. No calf ttp Neuro: Oriented X 3. No motor deficit. No sensory deficit. Medications Administered Discontinued Medications Generic Name Dose Route Start Last Admin Trade Name Freq PRN Reason Stop Dose Admin Lactated Ringer's 1,000 mls @ 999 mls/hr 09/16/24 13:09 09/16/24 13:41 Lr IV 09/16/24 14:09 999 mls/hr .Q1H1M ONE Administration Lactated Ringer's 1,000 mls @ 999 mls/hr 09/16/24 13:10 09/16/24 13:42 Lr IV 09/16/24 14:10 999 mls/hr .Q1H1M ONE Administration Medical Decision Making Medical Decision Making [facility] Narrative: 73 yo female with PMH of lupus, HTN, DM, migraines, fibromyalgia, GERD, asthma, Crohns recent Humira injection here with c/o resolved diarrhea after pureed food - no diarrhea today but overall feels weak has a hx of needing IV fluid repletion. No fevers, no blood in stool, has no abdominal pain today. No vomiting Differential Diagnosis Differential Diagnoses: The differential diagnosis associated with the presentation includes dehydration, FTT, weakness, anemia Admission/Observation Consideration of admission/observation: Escalation of care including admission/observation considered mild dehydration plan would be to give 2L of IVF then repeat BMP if better stable for DC signed out to Dr. Patterson pending repeat labs Lab Data [facility] Lab Attestation statement: I reviewed the patient's lab results. 09/16/24 13:40 09/16/24 13:40 Labs: Lab Results 09/16/24 Range/Units 13:40 WBC 6.8 (4.8-10.8) X10*3/uL RBC 5.03 (4.20-5.50) X10*6/uL Hgb 13.8 (12.0-16.0) g/dl Hct 43.1 (37.0-47.0) % MCV 85.7 (80.0-98.0) fL MCH 27.4 (27.0-33.0) pg MCHC 32.0 (31.0-35.0) g/dl RDW 15.9 (11.0-16.0) % Plt Count 220 (160-400) X10*3/uL MPV 10.0 (9.4-12.3) fL Immature Gran % (Auto) 0.3 (0.0-0.4) % Neut % (Auto) 67.7 (45-73) % Lymph % (Auto) 18.7 L (20-40) % Tate % (Auto) 11.3 H (2-11) % Eos % (Auto) 1.6 (0-4) % Baso % (Auto) 0.4 (0-2) % Lymph # (Auto) 1.3 (1.2-4.9) X10*3/uL [place] # (Auto) 0.8 (0.1-1.2) X10*3/uL Eos # (Auto) 0.1 (0.0-0.4) X10*3/uL Baso # (Auto) 0.0 (0.0-0.2) X10*3/uL Abs Immat Gran (auto) 0.02 (0.00-0.03) X10*3/uL Absolute Neuts (auto) 4.6 (2.0-8.3) x10*3/uL Absolute Nucleated RBC 0.000 (0.0-0.012) X10*3/uL Nucleated RBC % (auto) 0.0 (0.0-0.2) /100WBC Sodium 138 (135-145) mmol/L Potassium 5.1 (3.3-5.1) mmol/L Chloride 109 H (96-108) mmol/L Carbon Dioxide 16 L (22-29) mmol/L Anion Gap 18 (12-20) BUN 28 H (9-16) mg/dL Creatinine 1.33 (0.5-1.4) mg/dL Estim Creat Clear Calc 26.4 Estimated GFR 39 Random Glucose 67 (60-115) mg/dL Calcium 8.4 D (8.4-10.2) mg/dL Magnesium 1.9 (1.6-2.6) mg/dL Total Bilirubin 0.3 (0.0-1.0) mg/dL Direct Bilirubin 0.1 (0.0-0.5) mg/dL AST 122 H (5-31) U/L ALT 91 H (0-31) U/L Alkaline Phosphatase 89 (39-117) U/L C-Reactive Protein 0.70 H (< or = 0.50) mg/dL Total Protein 6.3 L (6.5-8.0) g/dL Albumin 3.4 L (3.5-5.0) g/dL Lipase 9 (8-78) U/L Independent Interpretation I performed an independent interpretation of an: EKG Interpretation: Rate: 86 Rhythm: NSR [place]: normal Normal P waves. Normal BOB. Normal QRS complex. ST T wave : nonspecific ST T wave changes, no RENUKA qTC: 437 prior studies: no acute ischemia The study has been interpreted contemporaneously by me. . Independent Historian Clinical information obtained from an independent historian. History obtained from or confirmed by: Other (daughter) External Record Review External record reviewed: Outpatient record and Prior outpatient radiology Discharge Plan Discharge Clinical Impression: Dehydration Patient Disposition: Still a Patient Instructions: Dehydration (ED) Prescriptions: No Action celecoxib 100 mg capsule 100 mg PO BID 30 Days Qty: 60 3RF adalimumab-adaz 40 mg/0.4 mL pen injector 80 mg subcut Q2W 14 Days Qty: 0.8 4RF Rx Instructions: inject two - 80 mg/0.8 mL pens on Day 1; inject one - 80 mg/0.8 mL pen on Day 15 of therapy subcut Hyrimoz Pen Crohn's-UC Starter 80 mg/0.8 mL pen injector 40 mg subcut DAILY 2 Days Qty: 2.4 0RF Rx Instructions: inject four - 40 mg/0.4 mL pens on Day 1; inject two - 40 mg/0.4 mL pen on Day 15 of therapy subcut ondansetron 4 mg tablet,disintegrating 4 mg PO Q8H PRN (Reason: nausea and vomiting) 30 Days Qty: 30 1RF promethazine 25 mg tablet 25 mg PO Q8H PRN (Reason: nausea and vomiting) 30 Days Qty: 60 1RF carisoprodol 350 mg tablet 350 mg PO BEDTIME omeprazole 20 mg capsule,delayed release(DR/EC) 20 mg PO BID@0630,1630 montelukast 10 mg tablet 10 mg PO BEDTIME albuterol sulfate 90 mcg/actuation Hfa Aerosol Inhaler 2 puff INHALATION Q6H PRN (Reason: Shortness Of Breath) ezetimibe 10 mg tablet 10 mg PO DAILY Asmanex HFA 200 mcg/actuation HFA aerosol inhaler 2 puff INHALATION DAILY propranolol 10 mg tablet 10 mg PO BEDTIME PRN (Reason: anxiety) cyclosporine [Restasis] 0.05 % dropperette 1 drp ophthalmic (eye) BID olmesartan 40 mg tablet 40 mg PO DAILY melatonin 10 mg Tablet 10 mg PO BEDTIME magnesium oxide 250 mg magnesium tablet 250 mg PO DAILY Humira(CF) Pen [id number] 80 mg/0.8 mL pen injector kit See Rx Instructions subcut .COMPLEX 14 Days Qty: 3 0RF Rx Instructions: inject two - 80 mg/0.8 mL pens on Day 1; inject one - 80 mg/0.8 mL pen on Day 15 of therapy subcut Humira 40 mg/0.8 mL syringe kit 40 mg subcut .COMPLEX 30 Days Qty: 2 3RF Rx Instructions: 40 mg subcutaneously; Print Language: Armenian
[2024-09-16] MEDS: Lactated Ringers 1,000 ML 999 ML IV ×2 (13:41→13:42)
[2024-09-16 13:44] LABS: MANUAL DIFF FLAG NO
[2024-09-16 13:48] LABS: Basophils Percent Auto 0.4 % (0-2); Eosinophils Absolute Auto 0.1 X10*3/uL (0.0-0.4); Eosinophils Percent Auto 1.6 % (0-4); Hematocrit 43.1 % (37.0-47.0); Hemoglobin 13.8 g/dl (12.0-16.0); Imm Gran Abs Auto 0.02 X10*3/uL (0.00-0.03); Imm Gran Pct Auto 0.3 % (0.0-0.4); Lymphocytes Absolute Auto 1.3 X10*3/uL (1.2-4.9); Lymphocytes Percent Auto 18.7 % (20-40); Mean Corpuscular Hemoglobin 27.4 pg (27.0-33.0); Mean Corpuscular Volume 85.7 fL (80.0-98.0); Monocytes Absolute Auto 0.8 X10*3/uL (0.1-1.2); Monocytes Percent Auto 11.3 % (2-11); Neutrophils Absolute Auto 4.6 x10*3/uL (2.0-8.3); Neutrophils Percent Auto 67.7 % (45-73); Platelet Count 220 X10*3/uL (160-400); Red Blood Count 5.03 X10*6/uL (4.20-5.50); Red Cell Distribution Width 15.9 % (11.0-16.0); White Blood Count 6.8 X10*3/uL (4.8-10.8)
[2024-09-16 14:21] LABS: Alanine Aminotransferase 91 U/L (0-31); Albumin Level 3.4 g/dL (3.5-5.0); Alkaline Phosphatase 89 U/L (39-117); Anion Gap 18 (12-20); Aspartate Amino Transferase 122 U/L (5-31); Bilirubin Direct 0.1 mg/dL (0.0-0.5); Bilirubin Total 0.3 mg/dL (0.0-1.0); Blood Urea Nitrogen 28 mg/dL (9-16); Calcium 8.4 mg/dL (8.4-10.2); Carbon Dioxide 16 mmol/L (22-29); Chloride 109 mmol/L (96-108); Creatinine Clr Calc Pharmacy 26.4; Estimated Glomerular Filt Rate 39; Glucose Random 67 mg/dL (60-115); Lipase 9 U/L (8-78); Magnesium 1.9 mg/dL (1.6-2.6); Potassium 5.1 mmol/L (3.3-5.1); Sodium 138 mmol/L (135-145); Total Protein 6.3 g/dL (6.5-8.0)
[2024-09-16 16:49] VITALS: BP 118/69; PULSE 82; RESP 16; TEMP 36.2; O2SAT 100
[2024-09-16 17:32] LABS: Anion Gap 21 (12-20); Blood Urea Nitrogen 25 mg/dL (9-16); Calcium 8.9 mg/dL (8.4-10.2); Carbon Dioxide 17 mmol/L (22-29); Chloride 107 mmol/L (96-108); Creatinine Clr Calc Pharmacy 33.2; Estimated Glomerular Filt Rate 51; Glucose Random 57 mg/dL (60-115); Potassium 4.8 mmol/L (3.3-5.1); Sodium 140 mmol/L (135-145)
[2024-09-16 17:57] LABS: Glucose, Whole Blood 42 mg/dL (60-115)
[2024-09-16] MEDS: ondansetron HCL 4 MG/2 ML VIAL IVPUSH (18:01)
[2024-09-16] MEDS: Dextrose 5 % and 0.9 % NaCl 1,000 ML 999 ML IVCONT (18:03)
[2024-09-16 19:07] LABS: Glucose, Whole Blood 216 mg/dL (60-115)
[2024-09-16 19:17] VITALS: BP 128/78; PULSE 94; RESP 18; TEMP 36.3; O2SAT 99
[2024-09-16 19:20] VITALS: BP 128/78; PULSE 94; RESP 18; TEMP 36.3; O2SAT 99
== END 2024-09-16 19:20 | disposition home or self-care (01) ==
PROVIDERS: Emergency Medicine; Emergency Provider Emergency Medicine; PCP Family Medicine
DX: E86.0 Dehydration (principal); R53.1 Weakness; E11.9 Type 2 diabetes mellitus without complications; K50.90 Crohn's disease, unspecified, without complications; R11.0 Nausea; I10 Essential (primary) hypertension; R00.2 Palpitations; R94.31 Abnormal electrocardiogram [ECG] [EKG]; Z79.899 Other long term (current) drug therapy
CPT/HCPCS: 36415; 80048; 80076; 82947; 83690; 83735; 85025; 86140; 93005; 96361; 96374; 99284; J2405; J7120

== ENCOUNTER → 2024-09-16 13:09 | Outpatient (BNV) | payer OTHER, SELFPAY | PROVIDERS: Emergency Provider Emergency Medicine; PCP Family Medicine; Visit Provider Internal Medicine | DX: R94.31 Abnormal electrocardiogram [ECG] [EKG] (principal) | CPT/HCPCS: 93010 ==

== ENCOUNTER 2024-09-30 12:25 | Inpatient (IN) | payer OTHER, SELFPAY ==
--- NOTE | ~2024-09-30 | XR_ITS ---
EXAMINATION: XR CHEST CLINICAL INFORMATION: cough, weakness COMPARISON: 08/04/2012. TECHNIQUE: 2 views of the chest were obtained. FINDINGS: The cardiac, hilar, and mediastinal contours are normal. The lungs are mildly hyperaerated, however clear bilaterally. There is no pneumothorax or pleural effusion. There is no focal osseous or soft tissue abnormality. XR/XR chest 2V IMPRESSION: No active disease. Electronically signed by: Ebenezer Alvarado MD 09/30/2024 03:23 PM JUANY
[2024-09-30 13:20] VITALS: BP 100/64; PULSE 100; RESP 16; TEMP 36.2; O2SAT 99; BMI 15.5
--- NOTE | 2024-09-30 13:21 | ED_ITS ---
HPI - General Adult General Chief complaint: General Medical Stated complaint: confusion, dehydrated Time Seen by Provider: 09/30/24 16:15 Source: patient Limitations: no limitations History of Present Illness ED Provider: Jasmine flores PA-C HPI narrative: 74-year-old female with past medical history significant for Crohn's disease followed by Dr. Blackburn, recent COVID-19 diagnosis about 2 weeks ago presents for evaluation of weakness she has had decreased appetite. The patient has been rapidly losing weight, she lost 5 lb within the past 2 days, she is now at 85 lb. She is having relentless postprandial diarrhea and nocturnal diarrhea. She will have brief periods of relief, for approximately 4-5 hours, it then returns. She is constantly nauseous, she has little relief from the antiemetics she is currently using; Zofran and Compazine, Phenergan suppositories. Patient is here per Dr. Grimes for admission due to failure to thrive. Related Data Home Medications ?Medication ?Instructions ?Recorded ?Confirmed albuterol sulfate 90 mcg/actuation 2 puff inhalation Q6H PRN 06/07/23 08/11/24 aerosol inhaler Shortness Of Breath carisoprodol 350 mg tablet 350 mg PO BEDTIME 06/07/23 08/11/24 ezetimibe 10 mg tablet 10 mg PO DAILY 06/07/23 08/11/24 mometasone 200 mcg/actuation HFA 2 puff inhalation DAILY 06/07/23 08/11/24 aerosol inhaler (Asmanex HFA) montelukast 10 mg tablet 10 mg PO BEDTIME 06/07/23 08/11/24 omeprazole 20 mg capsule,delayed 20 mg PO BID@0630,1630 06/07/23 08/11/24 release cyclosporine 0.05 % eye drops in a 1 drp ophthalmic (eye) BID 05/13/24 08/11/24 dropperette (Restasis) propranolol 10 mg tablet 10 mg PO BEDTIME PRN anxiety 05/13/24 08/11/24 melatonin 10 mg tablet 10 mg PO BEDTIME 05/21/24 08/11/24 olmesartan 40 mg tablet 40 mg PO DAILY 05/21/24 08/11/24 magnesium oxide 250 mg PO DAILY 07/21/24 08/11/24 Previous Rx's ?Medication ?Instructions ?Recorded celecoxib 100 mg capsule 100 mg PO BID 30 days #60 caps 08/08/24 adalimumab 40 mg/0.8 mL 40 mg (0.8 mL) subcut .COMPLEX 1 08/15/24 subcutaneous syringe kit (Humira) month #2 ea adalimumab 80 mg/0.8 mL See Rx Instructions subcut 08/15/24 subcutaneous pen kit (Humira(CF) .COMPLEX 2 weeks #3 ea Pen Crohn's-Ulc Colitis-Hid Sup Strt) adalimumab-adaz 40 mg/0.4 mL 80 mg (0.8 mL) subcut Q2W 2 weeks 08/22/24 subcutaneous pen injector #0.8 mL adalimumab-adaz 80 mg/0.8 mL 40 mg (0.4 mL) subcut DAILY 2 days 08/30/24 subcutaneous pen injector #2.4 mL (Hyrimoz(CF) Pen Crohn-Ulc Colitis Start) ondansetron 4 mg disintegrating 4 mg PO Q8H PRN nausea and 09/05/24 tablet vomiting 30 days #30 tabs promethazine 25 mg tablet 25 mg PO Q8H PRN nausea and 09/09/24 vomiting 30 days #60 tabs prednisone 10 mg tablet 10 mg PO DAILY 4 weeks #70 tabs 09/21/24 Allergies Allergy/AdvReac Type Severity Reaction Status Date / Time acetaminophen [From TYLENOL] Allergy Intermediate ITCHING Verified 09/30/24 13:25 epinephrine [EPINEPHRINE] Allergy Intermediate TACHYCARDIA Verified 09/30/24 13:25 iodine [IODINE] Allergy Intermediate RASH Verified 09/30/24 13:25 Penicillins [PENICILLINS] Allergy Intermediate ITCHING/HIV Verified 09/30/24 13:25 ES Sulfa (Sulfonamide Allergy Intermediate NAUSEA Verified 09/30/24 13:25 Antibiotics) [SULFA (SULFONAMIDE ANTIBIOTICS)] egg [EGG] Allergy Mild SENSITIVITY Verified 09/30/24 13:25 diclofenac [DICLOFENAC] Allergy Unknown HIVES Verified 09/30/24 13:25 levofloxacin [From LEVAQUIN] Allergy Unknown SEVERE Verified 09/30/24 13:25 ITCHING meperidine [Demerol] Allergy Unknown Rash Verified 09/30/24 13:25 penicillin V Allergy Unknown Rash Verified 09/30/24 13:25 procaine [From NOVOCAIN] Allergy Unknown UNKNOWN Verified 09/30/24 13:26 doxycycline AdvReac Stomach Verified 09/30/24 13:26 Upset SHELLFISH Allergy Severe ANAPHYLAXIS Uncoded 09/30/24 13:26 eggs Allergy Unknown Rash Uncoded 09/30/24 13:26 Novocain Allergy Unknown Rash Uncoded 09/30/24 13:26 goat/wool/feathers Allergy Itching Uncoded 09/30/24 13:26 From DEMEROL AdvReac Intermediate HYPOTENSION Uncoded 09/30/24 13:26 Review of Systems 2 Review of Systems: Yes all other systems are reviewed and are negative Constitutional: Constitutional: Reports fatigue, Denies fever(s), Reports lethargy, Reports poor appetite and Reports weight loss Cardiovascular: Cardiovascular: Denies chest pain Gastrointestinal: Gastrointestinal: Denies abdominal pain, Reports diarrhea and Reports nausea Endocrine: Endocrine: Reports fatigue PMFSH Past Medical History Attestation statement: The following information was validated with the patient. Medical History Hypertension Mitral valve prolapse Lupus GERD (gastroesophageal reflux disease) COVID-19 long hauler Hypoglycemia Asthma Hyperlipidemia Fibromyalgia Surgical History History of breast surgery Leg fracture, right Social History Social History Household Members: Spouse Housing: House Do you presently have visiting nurse or other home services: No Alcohol intake: never Comment: pt. refusing bed alarm . Patient Tobacco Use Status: Never used Tobacco e-Cigarette/Vaping Use: Never Used Second Hand Smoke Exposure: No Advance Directives: Yes Advance Directives Information Provided: No Advance Directives on File: No Advance Directives Date on File: 06/08/23 service: No Physical Exam ED Vital Signs: Vital Signs - 24 hr 09/30/24 13:20 Temperature 97.2 F Pulse Rate 100 Respiratory Rate 16 Blood Pressure 100/64 Pulse Oximetry 99 Oxygen Delivery Method Room Air BMI result Body Mass Index 15.5 Const Other: Alert, cachectic, ill in appearing, Orientation/consciousness: patient oriented x3 HENMT Other: dry oral mucosa, dry cracked lips Resp Other: nonlabored respiration Cardio Other: normal peripheral perfusion Skin Other: warm dry no rash Neuro General: patient oriented x3, no focal motor deficits and CN's II-XI intact bilaterally Psych Other: calm cooperative Course Course Course Narrative: RME, this is a rapid medical exam performed by Christiano Lagos please refer to primary provider for complete H&P- 74-year-old female with past medical history significant for Crohn's disease followed by Dr. Blackburn, recent COVID-19 diagnosis about 2 weeks ago presents for evaluation of weakness she has had decreased appetite. She has had associated nausea and vomiting. She was alert and oriented x3 but reports intermittent confusion. She reports Dr Blackburn sent to here for IV fluids and ?to be admitted. Medications Administered Generic Name Dose Route Start Last Admin Trade Name Freq PRN Reason Stop Dose Admin Sodium Chloride 1,000 mls @ 200 mls/hr 09/30/24 17:15 09/30/24 18:09 Ns IVCONT 09/30/24 22:14 200 mls/hr .Q5H KARSTEN Administration Discontinued Medications Generic Name Dose Route Start Last Admin Trade Name Freq PRN Reason Stop Dose Admin Prochlorperazine Edisylate 10 mg 09/30/24 17:13 09/30/24 18:09 Prochlorperazine Edisylate 10 Mg/2 Ml Vial IVPUSH 09/30/24 17:14 10 mg ONCE ONE Administration Procedures Procedure Narrative Procedure Narrative: ultrasound-guided peripheral IV A 22 gauge 2-1/2 inch IV was placed in the right upper extremity. Adequate blood return, flushes well, secured with Tegaderm Medical Decision Making Medical Decision Making MDM Narrative: 74-year-old female with past medical history significant for Crohn's disease followed by Dr. Blackburn, recent COVID-19 diagnosis about 2 weeks ago presents for evaluation of weakness she has had decreased appetite. The patient has been rapidly losing weight, she lost 5 lb within the past 2 days, she is now at 85 lb. She is having relentless postprandial diarrhea and nocturnal diarrhea. She will have brief periods of relief, for approximately 4-5 hours, it then returns. She is constantly nauseous, she has little relief from the antiemetics she is currently using; Zofran and Compazine, Phenergan suppositories. Patient is here per Dr. Grimes for admission due to failure to thrive. problem: Crohn's History: Per patient I have considered the following differential diagnoses: Failure to thrive, electrolyte abnormality, anemia, dehydration Plan: Screening labs have already been ordered from triage, I will start maintenance IV fluid with saline at this time pending her chemistries, I suspect she will have multiple electrolyte abnormalities. We will admit per the request of Dr. Blackburn. I have independently reviewed the following tests: Labs: No leukocytosis, not anemic, no electrolyte abnormalities, this is surprising EKG: normal sinus rhythm, rate of 78, ST elevation present in anterior leads, QTC 424 Lab Data 09/30/24 17:10 09/30/24 17:10 Labs: Lab Results 09/30/24 09/30/24 Range/Units 17:09 17:10 WBC 8.4 (4.8-10.8) X10*3/uL RBC 5.04 (4.20-5.50) X10*6/uL Hgb 13.7 (12.0-16.0) g/dl Hct 41.6 (37.0-47.0) % MCV 82.5 (80.0-98.0) fL MCH 27.2 (27.0-33.0) pg MCHC 32.9 (31.0-35.0) g/dl RDW 14.7 (11.0-16.0) % Plt Count 215 (160-400) X10*3/uL MPV 10.9 (9.4-12.3) fL Immature Gran % (Auto) 0.5 H (0.0-0.4) % Neut % (Auto) 59.8 (45-73) % Lymph % (Auto) 29.6 (20-40) % [place] % (Auto) 6.9 (2-11) % Eos % (Auto) 3.1 (0-4) % Baso % (Auto) 0.1 (0-2) % Lymph # (Auto) 2.5 (1.2-4.9) X10*3/uL [place] # (Auto) 0.6 (0.1-1.2) X10*3/uL Eos # (Auto) 0.3 (0.0-0.4) X10*3/uL Baso # (Auto) 0.0 (0.0-0.2) X10*3/uL Abs Immat Gran (auto) 0.04 H (0.00-0.03) X10*3/uL Absolute Neuts (auto) 5.0 (2.0-8.3) x10*3/uL Absolute Nucleated RBC 0.000 (0.0-0.012) X10*3/uL Nucleated RBC % (auto) 0.0 (0.0-0.2) /100WBC PT 12.4 (10.9-12.4) SEC INR 1.1 (0.9-1.1) Sodium 137 (135-145) mmol/L Potassium 4.4 (3.3-5.1) mmol/L Chloride 106 (96-108) mmol/L Carbon Dioxide 19 L (22-29) mmol/L Anion Gap 16 (12-20) BUN 47 H (9-16) mg/dL Creatinine 0.86 (0.5-1.4) mg/dL Estim Creat Clear Calc 35.4 Estimated GFR > 60 Random Glucose 77 (60-115) mg/dL Calcium 8.9 (8.4-10.2) mg/dL Magnesium 1.9 (1.6-2.6) mg/dL Total Bilirubin 0.3 (0.0-1.0) mg/dL AST 53 H (5-31) U/L ALT 86 H (0-31) U/L Alkaline Phosphatase 76 (39-117) U/L Ammonia 35 (13-55) umol/L Troponin I High Sens 3.3 (<3.5-17.0) ng/L B-Natriuretic Peptide 20 (<100) pg/mL Total Protein 6.8 (6.5-8.0) g/dL Albumin 3.7 (3.5-5.0) g/dL Lipase 57 (8-78) U/L Influenza Type A (PCR) NEGATIVE (Negative) Influenza Type B (PCR) NEGATIVE (Negative) RSV RNA Qual (PCR) NEGATIVE (Negative) SARS-CoV-2 RNA (RT-PCR) POSITIVE A (Negative) Discharge Plan Discharge Clinical Impression: Adult failure to thrive Patient Disposition: Admitted As Inpatient
--- NOTE | 2024-09-30 13:22 | ECG_ITS ---
Test Reason : dehydration Blood Pressure : / mmHG Vent. Rate : 078 BPM Atrial Rate : 078 BPM P-R Int : 128 ms QRS Dur : 076 ms QT Int : 372 ms P-R-T Axes : -09 030 -09 degrees QTc Int : 424 ms Normal sinus rhythm Normal ECG When compared with ECG of 16-SEP-2024 13:53, ST elevation now present in Anterior leads Nonspecific T wave abnormality no longer evident in Lateral leads Referred By: Chan Lagos Electronically Signed By:MIRA MCGILL MD
[2024-09-30 17:14] LABS: MANUAL DIFF FLAG NO
[2024-09-30 17:15] LABS: Basophils Percent Auto 0.1 % (0-2); Eosinophils Absolute Auto 0.3 X10*3/uL (0.0-0.4); Eosinophils Percent Auto 3.1 % (0-4); Hematocrit 41.6 % (37.0-47.0); Hemoglobin 13.7 g/dl (12.0-16.0); Imm Gran Abs Auto 0.04 X10*3/uL (0.00-0.03); Imm Gran Pct Auto 0.5 % (0.0-0.4); Lymphocytes Absolute Auto 2.5 X10*3/uL (1.2-4.9); Lymphocytes Percent Auto 29.6 % (20-40); Mean Corpuscular HGB Conc 32.9 g/dl (31.0-35.0); Mean Corpuscular Hemoglobin 27.2 pg (27.0-33.0); Mean Corpuscular Volume 82.5 fL (80.0-98.0); Mean Platelet Volume 10.9 fL (9.4-12.3); Monocytes Absolute Auto 0.6 X10*3/uL (0.1-1.2); Monocytes Percent Auto 6.9 % (2-11); Neutrophils Percent Auto 59.8 % (45-73); Platelet Count 215 X10*3/uL (160-400); Red Blood Count 5.04 X10*6/uL (4.20-5.50); Red Cell Distribution Width 14.7 % (11.0-16.0); White Blood Count 8.4 X10*3/uL (4.8-10.8)
[2024-09-30 17:25] LABS: INTERNATIONAL NORM RATIO 1.1 (0.9-1.1); Prothrombin Time 12.4 SEC (10.9-12.4)
[2024-09-30 17:30] LABS: Ammonia 35 umol/L (13-55)
[2024-09-30 17:32] LABS: Alanine Aminotransferase 86 U/L (0-31); Albumin Level 3.7 g/dL (3.5-5.0); Alkaline Phosphatase 76 U/L (39-117); Anion Gap 16 (12-20); Aspartate Amino Transferase 53 U/L (5-31); Bilirubin Total 0.3 mg/dL (0.0-1.0); Blood Urea Nitrogen 47 mg/dL (9-16); Calcium 8.9 mg/dL (8.4-10.2); Carbon Dioxide 19 mmol/L (22-29); Chloride 106 mmol/L (96-108); Creatinine Clr Calc Pharmacy 35.4; Estimated Glomerular Filt Rate > 60; Glucose Random 77 mg/dL (60-115); Lipase 57 U/L (8-78); Magnesium 1.9 mg/dL (1.6-2.6); Potassium 4.4 mmol/L (3.3-5.1); Sodium 137 mmol/L (135-145); Total Protein 6.8 g/dL (6.5-8.0)
[2024-09-30 17:36] LABS: B Type Natriuretic Peptide 20 pg/mL (<100)
[2024-09-30 17:39] LABS: Troponin-I High Sensitivity 3.3 ng/L (<3.5-17.0)
[2024-09-30 17:54] LABS: Influenza A PCR NEGATIVE (Negative); Influenza B PCR NEGATIVE (Negative); Resp Syncy Virus RNA Qual PCR NEGATIVE (Negative); SARS COV2 PCR INHOUSE POSITIVE (Negative)
--- NOTE | 2024-09-30 18:04 | PM.IMHP ---
History of Present Illness Date of Service: 09/30/24 Attending physician on admission: Tiny Ferraro Chief Complaint: Intractable nausea, vomiting, diarrhea Pt is a 74-year-old female with a PMH significant for?SLE, fibromyalgia, Crohn's disease, HTN, HLD, asthma, GERD, and migraines who presents to the ED at the recommendation of her copper etcher Dr. Blackburn for failure to thrive. Patient has been experiencing intractable diarrhea, inability to tolerate p.o. intake, and recent weight loss. Patient has been experiencing GI issues since April, including nausea, vomiting, diarrhea, abdominal pain, and 42 lb weight loss. Was recently diagnosed with Crohn's disease and started on Humira on 08/11/[address] Blackburn. Patient reports some relief in GI symptoms, but they returned 2-1/2 weeks ago when she was diagnosed with COVID. Has lost sense of taste and smell. Continues to occasionally experience nonproductive cough, mostly at night. Patient reports currently is only able to eat a ?tiny? amount of food at a time, though even this often results in intractable diarrhea. Experiences intermittent diffuse abdominal pain, worsened during bouts of diarrhea. Denies any recent nausea or vomiting. No chest pain/pressure, palpitations. Denies fever, chills. Denies shortness or breath or difficulty breathing. In the ED pt with elevated HR up to 100, vitals otherwise stable and WNL. Patient tested positive for COVID, although other labs grossly unremarkable and around baseline for patient. No leukocytosis. Stable H&H. No significant electrolyte abnormalities. Renal function baseline. Mild transaminitis of AST 53 and ALT 86, around baseline. Ammonia 35. Troponin 3.3. BNP 20. CXR showed no active disease. Pt was treated with Compazine and IVF. Pt will be admitted to the hospital for treatment and further evaluation for failure to thrive in a patient with intractable diarrhea and inability to tolerate p.o. intake. Review of Systems Review of Systems: Negative except for that which is stated in the [facility] Medical History Hypertension Mitral valve prolapse Lupus GERD (gastroesophageal reflux disease) COVID-19 long hauler Hypoglycemia Asthma Hyperlipidemia Fibromyalgia Surgical History History of breast surgery Leg fracture, right Social History Household Members: Spouse Housing: House Do you presently have visiting nurse or other home services: No Alcohol intake: never Comment: pt. refusing bed alarm . Patient Tobacco Use Status: Never used Tobacco e-Cigarette/Vaping Use: Never Used Second Hand Smoke Exposure: No Advance Directives: Yes Advance Directives Information Provided: No Advance Directives on File: No Advance Directives Date on File: 06/08/23 service: No Meds Allergies Allergy/AdvReac Type Severity Reaction Status Date / Time acetaminophen [From TYLENOL] Allergy Intermediate ITCHING Verified 09/30/24 13:25 epinephrine [EPINEPHRINE] Allergy Intermediate TACHYCARDIA Verified 09/30/24 13:25 iodine [IODINE] Allergy Intermediate RASH Verified 09/30/24 13:25 Penicillins [PENICILLINS] Allergy Intermediate ITCHING/HIV Verified 09/30/24 13:25 ES Sulfa (Sulfonamide Allergy Intermediate NAUSEA Verified 09/30/24 13:25 Antibiotics) [SULFA (SULFONAMIDE ANTIBIOTICS)] egg [EGG] Allergy Mild SENSITIVITY Verified 09/30/24 13:25 diclofenac [DICLOFENAC] Allergy Unknown HIVES Verified 09/30/24 13:25 levofloxacin [From LEVAQUIN] Allergy Unknown SEVERE Verified 09/30/24 13:25 ITCHING meperidine [Demerol] Allergy Unknown Rash Verified 09/30/24 13:25 penicillin V Allergy Unknown Rash Verified 09/30/24 13:25 procaine [From NOVOCAIN] Allergy Unknown UNKNOWN Verified 09/30/24 13:26 doxycycline AdvReac Stomach Verified 09/30/24 13:26 Upset SHELLFISH Allergy Severe ANAPHYLAXIS Uncoded 09/30/24 13:26 eggs Allergy Unknown Rash Uncoded 09/30/24 13:26 Novocain Allergy Unknown Rash Uncoded 09/30/24 13:26 goat/wool/feathers Allergy Itching Uncoded 09/30/24 13:26 From DEMEROL AdvReac Intermediate HYPOTENSION Uncoded 09/30/24 13:26 Active Medications: Current Medications Sodium Chloride (Ns) 1,000 mls @ 200 mls/hr IVCONT .Q5H KARSTEN Stop: 09/30/24 22:14 Home Medications ?Medication ?Instructions ?Recorded ?Confirmed ?Last Taken ?Type albuterol sulfate 90 mcg/actuation 2 puff inhalation Q6H PRN 06/07/23 08/11/24 06/01/24 History aerosol inhaler Shortness Of Breath carisoprodol 350 mg tablet 350 mg PO BEDTIME 06/07/23 08/11/24 06/01/24 History ezetimibe 10 mg tablet 10 mg PO DAILY 06/07/23 08/11/24 06/01/24 History mometasone 200 mcg/actuation HFA 2 puff inhalation DAILY 06/07/23 08/11/24 06/01/24 History aerosol inhaler (Asmanex HFA) montelukast 10 mg tablet 10 mg PO BEDTIME 06/07/23 08/11/24 06/01/24 History omeprazole 20 mg capsule,delayed 20 mg PO BID@0630,1630 06/07/23 08/11/24 06/01/24 History release cyclosporine 0.05 % eye drops in a 1 drp ophthalmic (eye) BID 05/13/24 08/11/24 06/01/24 History dropperette (Restasis) propranolol 10 mg tablet 10 mg PO BEDTIME PRN anxiety 05/13/24 08/11/24 06/01/24 History melatonin 10 mg tablet 10 mg PO BEDTIME 05/21/24 08/11/24 06/01/24 History olmesartan 40 mg tablet 40 mg PO DAILY 05/21/24 08/11/24 06/01/24 History magnesium oxide 250 mg PO DAILY 07/21/24 08/11/24 Unknown History Physical Exam Vital Signs and Narrative: Vital Signs: Last Vital Signs Temp 97.2 F 09/30/24 13:20 Pulse 100 09/30/24 13:20 Resp 16 09/30/24 13:20 BP 100/64 09/30/24 13:20 Pulse Ox 99 09/30/24 13:20 O2 Del Method Room Air 09/30/24 13:20 BMI result Body Mass Index 15.5 General: AOx3, frail-looking, cachectic. In no acute distress Resp: CTA bilaterally CVS: S1, S2, RRR GI: +BS, no distention, mild RLQ and LUQ tenderness Skin: Warm, dry Neuro: Cranial nerves II-XII grossly intact bilaterally. Motor grossly intact bilaterally Extremities: No edema Psych: Appropriate affect Results Labs 09/30/24 17:10 09/30/24 17:10 Labs: Laboratory Results - last 24 hr 09/30/24 09/30/24 17:09 17:10 MCV 82.5 MCH 27.2 MCHC 32.9 RDW 14.7 Plt Count 215 MPV 10.9 Immature Gran % (Auto) 0.5 H Neut % (Auto) 59.8 Lymph % (Auto) 29.6 [place] % (Auto) 6.9 Eos % (Auto) 3.1 Baso % (Auto) 0.1 Lymph # (Auto) 2.5 [place] # (Auto) 0.6 Eos # (Auto) 0.3 Baso # (Auto) 0.0 Abs Immat Gran (auto) 0.04 H Absolute Neuts (auto) 5.0 Absolute Nucleated RBC 0.000 Nucleated RBC % (auto) 0.0 PT 12.4 INR 1.1 Anion Gap 16 Estim Creat Clear Calc 35.4 Estimated GFR > 60 Random Glucose 77 Calcium 8.9 Magnesium 1.9 Total Bilirubin 0.3 AST 53 H ALT 86 H Alkaline Phosphatase 76 Ammonia 35 Troponin I High Sens 3.3 B-Natriuretic Peptide 20 Total Protein 6.8 Albumin 3.7 Lipase 57 Influenza Type A (PCR) NEGATIVE Influenza Type B (PCR) NEGATIVE RSV RNA Qual (PCR) NEGATIVE SARS-CoV-2 RNA (RT-PCR) POSITIVE A Imaging Radiologist's Impressions: Impressions Chest X-Ray 09/30/24 14:15 IMPRESSION: No active disease. Electronically signed by: Ebenezer Alvarado MD 09/30/2024 03:[address] [facility] Assessment and Plan (1) Adult failure to thrive: Status: Acute (2) Intractable diarrhea: Status: Resolved (3) Protein calorie malnutrition: Status: Acute Plan Pt is a 74-year-old female with a PMH significant for?SLE, fibromyalgia, Crohn's disease, HTN, HLD, asthma, GERD, and migraines who presents to the ED at the recommendation of her copper etcher Dr. Blackburn for failure to thrive. Pt will be admitted to the hospital for treatment and further evaluation for failure to thrive in a patient with intractable diarrhea and inability to tolerate p.o. intake. Failure to thrive in setting of Crohn's disease Patient with postprandial intractable diarrhea, intermittent abdominal pain, unable to tolerate p.o. intake, 5 lb weight loss in the past week Long history of GI issues, recently diagnosed with Crohn's disease by Dr. Blackburn No acute electroyle abnormalities, renal function baseline Patient received Compazine and IVF in the ED Will place on maintenance fluids Antiemetics, analgesics for pain management Diet as tolerated GI consult Will defer any imaging and additional treatment to GI recommendations Follow BMP Protein calorie malnutrition Reports 42 lb weight loss since April, 5 lb weight loss in the last week Will supplement with ensure t.i.d., magic cup b.i.d. Dietitian/nutrition consult Transaminitis Chronic, at baseline Likely secondary to Chrohn's Asthma Not in acute exacerbation Continue home inhalers HLD Continue acetamide GERD PPI Anxiety Continue propranolol Full Code Attending:?Dr. Ferraro DVT Prophylaxis: Lovenox Pt will require a hospitalization of at least two nights for treatment of?adult failure to thrive in the setting of intractable postprandial diarrhea in the setting of patient with Crohn's disease. As patient is unable to tolerate p.o. intake and has had recent 5 lb weight loss in the past week, they require hospital level care for administration of IVF, IV antiemetics, IV analgesics, and specialist consultation with GI and nutrition. Quality Stroke Does the patient have a stroke diagnosis?: No VTE Prior VTE?: No VTE Risk Level:: Medical - moderate - high VTE Device Contraindication: Treatment Not Indicated VTE Drug Contraindication: N/A - Med Ordered
[2024-09-30] MEDS: Prochlorperazine Edisylate 10 MG/2 ML VIAL IVPUSH (18:09)
[2024-09-30] MEDS: 0.9 % Sodium Chloride 1,000 ML 200 ML IVCONT (18:09)
--- NOTE | 2024-09-30 18:47 | P.CNGI_ITS ---
History of Present Illness Data of Consult Service Date: 09/30/24 Requesting physician: Gaviota Rios Primary Care Provider: Parvez Altamirano MD [facility] Reason for consult: Crohn's disease with chronic diarrhea and failure to thrive 73 YF with lupus, HTN, HLD, fibromyalgia, asthma, GERD, and migraines, recent COVID-19 infection 2 weeks ago seen at [facility] ED on 09/30/24 for evaluation of weakness, constant nausea, vomiting, persistent diarrhea, poor PO intake and wt loss. Pt reports loosing 5 lbs over past 2 days (wt decreased from 102 lbs on 08/11 to 85 lbs) Pt complains of nocturnal and post prandial diarrhea with brief periods of relief of 4-5 hours) Pt is taking Zofran, compazine and phenrgan supp for nausea without relief of symptoms Past evaluation: Stool studies were positive for entero-pathogenic E coli infection in 04/2024 and repeat stool studies were negative. IBD serologies were positive for Crohn's disease Pt had an elevated chromogranin A. Normal Ig G4 levels and Celiac serologies were negative CRP intermittently elevated. Pt had an EGD and colon which showed: ENDOSCOPIC STUDIES: 06/06/24 EGD AND COLON WERE PERFORMED BY DR HA: Impression: 1. Normal esophagus 2. Abhay erosions (biopsy) 3. Gastric polyps 3. Normal duodenum (biopsy) 4. Normal colon and T.I mucosa (biopsy) 5. One polyp removed from the colon 6. Internal and external hemorrhoids Recommendations:?? * No obvious mucosal abnormality to explain on going diarrhea. * Follow-up path results * Avoid NSAIDs * Poor prep in T.C. Repeat colonoscopy within 1-2 years if pt has not had a high quality colonoscopy within the last 5 years. * Labs for functional NET pending BIOPSIES SHOWED: A. Duodenum, biopsy: Chronic active duodenitis with moderate to marked villous blunting, surface erosion and increased intraepithelial lymphocytes (see comment). B. Stomach, random, biopsy: Gastric antral mucosa with mild chronic inactive gastritis and increased intraepithelial lymphocytes; negative for Helicobacter pylori, intestinal metaplasia and dysplasia (see comment). C. Colon, hepatic flexure, polypectomy: Tubular adenoma; negative for high-grade dysplasia. D. Colon, right side, biopsy: Colonic mucosa within normal limits; negative for active, chronic or microscopic colitis. E. Colon, left side, biopsy: Colonic mucosa within normal limits; negative for active, chronic or microscopic colitis. COMMENT (A&B): The histologic findings raise the possibility of celiac disease but cannot completely exclude infection, drug/medication effect, inflammatory bowel disease, lymphocytic gastritis, and non-specific gastritis. Clinical correlation is advised IBD serologies were positive for Crohn's disease. 08/24/24 CT enterography showed: 1. No bowel obstruction, free intraperitoneal air or abscess is seen. No focal bowel wall thickening is seen. There is mild diverticulosis, without acute diverticulitis. 2. There is a small fat-containing umbilical hernia. 3. At L4-5, there is marked degenerative disc disease. Pt was started on Humira for Crohn's disease (took loading dose on 09/09/24 followed by 2nd dose of Humira after 2 weeks without relief of symptoms). She was started on a Prednisone taper since 09/22/24 Review of Systems 2 Review of Systems: Negative except for that which is stated in the [facility] Past Medical History Medical History Hypertension Mitral valve prolapse Lupus GERD (gastroesophageal reflux disease) COVID-19 long hauler Hypoglycemia Asthma Hyperlipidemia Fibromyalgia Surgical History Surgical History History of breast surgery Leg fracture, right Social History Social History Household Members: Family Household Members Other:: 2 Housing: House Do you presently have visiting nurse or other home services: No Alcohol intake: never Comment: pt. refusing bed alarm . Patient Tobacco Use Status: Never used Tobacco Smoked in Last 30 Days: No e-Cigarette/Vaping Use: Never Used Second Hand Smoke Exposure: No Use of substances other than those prescribed or required for medical reasons: No Currently Displaying Signs/Symptoms of Drug Intoxication Withdrawal: No Any prior treatment program specific to substance use: No Have you been hit, kicked, punched, or otherwise hurt by someone within the past year? If so, by whom?: No Do you feel safe in your current relationship?: No Current Relationship Is there a partner from a previous relationship who is making you feel unsafe now?: No Are you made to feel afraid or neglected: No Advance Directives: Yes Advance Directives Information Provided: No Advance Directives on File: No Advance Directives Date on File: 10/01/24 Do you have a plan to hurt others: No Plan Recently lost weight without trying: Yes How much weight loss: 24-33 pounds Eating poorly because of decreased appetite: Yes Nutrition screen score: 6 Nutrition Risks: Acute nausea or vomiting x1 week, Anorexia, Emaciation/Cachexia, Gastrointestinal Malabsorption and Poor intake 0-25% >4 days Patient : No service: No Meds Allergies Allergy/AdvReac Type Severity Reaction Status Date / Time acetaminophen [From TYLENOL] Allergy Intermediate ITCHING Verified 09/30/24 13:25 epinephrine [EPINEPHRINE] Allergy Intermediate TACHYCARDIA Verified 09/30/24 13:25 iodine [IODINE] Allergy Intermediate RASH Verified 09/30/24 13:25 Penicillins [PENICILLINS] Allergy Intermediate ITCHING/HIV Verified 09/30/24 13:25 ES Sulfa (Sulfonamide Allergy Intermediate NAUSEA Verified 09/30/24 13:25 Antibiotics) [SULFA (SULFONAMIDE ANTIBIOTICS)] egg [EGG] Allergy Mild SENSITIVITY Verified 09/30/24 13:25 diclofenac [DICLOFENAC] Allergy Unknown HIVES Verified 09/30/24 13:25 levofloxacin [From LEVAQUIN] Allergy Unknown SEVERE Verified 09/30/24 13:25 ITCHING meperidine [Demerol] Allergy Unknown Rash Verified 09/30/24 13:25 penicillin V Allergy Unknown Rash Verified 09/30/24 13:25 procaine [From NOVOCAIN] Allergy Unknown UNKNOWN Verified 09/30/24 13:26 doxycycline AdvReac Stomach Verified 09/30/24 13:26 Upset SHELLFISH Allergy Severe ANAPHYLAXIS Uncoded 09/30/24 13:26 eggs Allergy Unknown Rash Uncoded 09/30/24 13:26 Novocain Allergy Unknown Rash Uncoded 09/30/24 13:26 goat/wool/feathers Allergy Itching Uncoded 09/30/24 13:26 From DEMEROL AdvReac Intermediate HYPOTENSION Uncoded 09/30/24 13:26 Active Medications: Current Medications Enoxaparin Sodium (Enoxaparin Sodium 40 Mg/0.4 Ml Syringe) 40 mg SUBCUT Q24H KARSTEN Sodium Chloride (Ns) 1,000 mls @ 200 mls/hr IVCONT .Q5H KARSTEN Stop: 09/30/24 22:14 Last Admin: 09/30/24 18:09 Dose: 200 mls/hr Lactated Ringer's (Lr) 1,000 mls @ 100 mls/hr IVCONT .Q10H [facility] Magnesium Hydroxide (Milk Of Magnesia 30 Ml Oral.Susp) 30 ml PO DAILY PRN PRN Reason: Constipation Melatonin (Melatonin 3 Mg Tablet) 6 mg PO BEDTIME PRN PRN Reason: Insomnia Ondansetron HCl (Ondansetron Hcl 4 Mg/2 Ml Vial) 4 mg IVPUSH Q8H PRN PRN Reason: Nausea and Vomiting Oxycodone HCl (Oxycodone Hcl Immed Release 5 Mg Tablet) 5 mg PO Q6H PRN PRN Reason: Pain, Severe (Pain Scale 7-10) Sodium Chloride (0.9 % Sodium Chloride Flush 3 Ml Syringe) 3 ml IVFLUSH QSHIFT [facility] Home Medications ?Medication ?Instructions ?Recorded ?Confirmed ?Last Taken ?Type albuterol sulfate 90 mcg/actuation 2 puff inhalation Q6H PRN 06/07/23 09/30/24 09/29/24 History aerosol inhaler Shortness Of Breath carisoprodol 350 mg tablet 350 mg PO BEDTIME 06/07/23 09/30/24 09/29/24 History montelukast 10 mg tablet 10 mg PO BEDTIME 06/07/23 09/30/24 09/29/24 History omeprazole 20 mg capsule,delayed 20 mg PO BID 06/07/23 10/01/24 09/29/24 History release cyclosporine 0.05 % eye drops in a 1 drp ophthalmic (eye) BID 05/13/24 09/30/24 09/29/24 History dropperette (Restasis) propranolol 10 mg tablet 10 mg PO NEEDED PRN anxiety 05/13/24 10/01/24 09/29/24 History melatonin 10 mg tablet 10 mg PO BEDTIME 05/21/24 09/30/24 09/29/24 History magnesium oxide 250 mg PO DAILY 07/21/24 09/30/24 09/29/24 History adalimumab-adaz 40 mg/0.4 mL 40 mg subcut Q2W 09/30/24 09/30/24 09/24/24 History subcutaneous pen injector celecoxib 100 mg capsule 100 mg PO BEDTIME 09/30/24 10/01/24 09/29/24 History prednisone 10 mg tablet See Taper PO DAILY 09/30/24 09/30/24 09/30/24 History metoclopramide HCl 5 mg tablet 5 mg PO TID 10/01/24 10/01/24 09/30/24 09:00 History Physical Exam 2 Vital Signs: Vital Signs: Last Vital Signs Temp 97.2 F 09/30/24 13:20 Pulse 100 09/30/24 13:20 Resp 16 09/30/24 13:20 BP 100/64 09/30/24 13:20 Pulse Ox 99 09/30/24 13:20 O2 Del Method Room Air 09/30/24 13:20 BMI result Body Mass Index 15.5 Results Labs 09/30/24 17:10 10/04/24 05:53 Labs: Short CBC 09/30/24 Range/Units 17:10 WBC 8.4 (4.8-10.8) X10*3/uL Hgb 13.7 (12.0-16.0) g/dl Hct 41.6 (37.0-47.0) % Plt Count 215 (160-400) X10*3/uL BMP 09/30/24 17:10 Sodium 137 Potassium 4.4 Chloride 106 Carbon Dioxide 19 L BUN 47 H Creatinine 0.86 Calcium 8.9 Liver Function 09/30/24 Range/Units 17:10 Total Bilirubin 0.3 (0.0-1.0) mg/dL AST 53 H (5-31) U/L ALT 86 H (0-31) U/L Alkaline Phosphatase 76 (39-117) U/L Albumin 3.7 (3.5-5.0) g/dL Assessment and Plan (1) Adult failure to thrive: Status: Acute (2) Crohn's disease: Status: Acute (3) Chronic diarrhea: Status: Acute (4) Elevated LFTs: Status: Acute Plan 73 YF with lupus, HTN, HLD, fibromyalgia, asthma, GERD, and migraines, recent COVID-19 infection 2 weeks ago admitted to [facility] on 09/30/24 for weakness, constant nausea, vomiting, persistent diarrhea, poor PO intake, wt loss and failure to thrive. Pt reports 42 lbs wt loss since April, and loosing 5 lbs over past 2 days (wt decreased from 102 lbs on 08/11 to 85 lbs) Pt complains of nocturnal and post prandial diarrhea with brief periods of relief of 4-5 hours) IBD serologies were positive for Crohn's disease. 08/24/24 CT enterography showed: 1. No bowel obstruction, free intraperitoneal air or abscess is seen. No focal bowel wall thickening is seen. There is mild diverticulosis, without acute diverticulitis. Pt was started on Humira for Crohn's disease (took loading dose on 09/09/24 followed by 2nd dose of Humira after 2 weeks without relief of symptoms). She was started on a Prednisone taper since 09/22/24 Pt has been coming to short stay once a week for IV hydration RECOMMENDATIONS: 1. Check stool for C Diff and GI panel to rule out infectious colitis super- imposed on Crohn's disease 2. Labs to rule out secretory diarrhea - added to am labs 3. IV hydration 4. IV steroids followed by PO budesonide on discharge Procedures Date of Service Date of Service: 10/04/24
--- NOTE | 2024-09-30 19:15 | PHA.MEDREC ---
Addendum entered by Lucho Haddad [facility] 09/30/24 19:32: Med rec reviewed Original Note: Pharmacy Consult ? Medication Reconciliation Pharmacy has completed the medication reconciliation. Spoke with patient and patients daughter at bedside and patients daughter had list for patient. Patient confirmed her Dr stopped Ezetimibe 10mg, Furosemide 20mg, Motrin 200mg, Ondansetron 4mg and Olmesartan 40mg in last about 2 months due to her crohn's and irritation with some of the patients organs. The daughter confirmed the Adalimumab-adaz 40mg/0.4mL injection and confirmed she is injecting one pen every 15 days and got her last dose 09/24 and is set up for her next shot 10/09. She confirmed the Predisone 10mg tab and states she started it on 09/22 and is on day 8 of the regimen. She confirmed she took the Prednisone 10mg tab and Promethazine 25mg tab this morning and everything else yesterday.
[2024-09-30 19:46] VITALS: BP 113/68; PULSE 79; RESP 16; TEMP 36.7; O2SAT 100
--- NOTE | 2024-09-30 19:52 | MHC.EDTECH ---
This tech took over care of pt at 1900,rounded and introduced self to pt,vitals taken,family at bedside,pt is resting quietly,warm blanket given,call brito in reach
--- NOTE | 2024-09-30 19:53 | MHC.EDTECH ---
This screen writer attempted to get a urine sample,pt is unable to give at this time
[2024-09-30 20:59] LABS: Glucose, Whole Blood 71 mg/dL (60-115)
--- NOTE | 2024-09-30 21:03 | MHC.EDTECH ---
Poc taken and is 72,RN made aware
[2024-09-30] MEDS: methylPREDNISolone Sod Succ 40 MG/ML VIAL 30 MG IVPUSH (21:36)
[2024-09-30] MEDS: Enoxaparin Sodium 40 MG/0.4 ML SYRINGE SUBCUT (21:37)
[2024-09-30] MEDS: Montelukast Sodium 10 MG TABLET PO (21:37)
[2024-09-30] MEDS: carisoprodoL 350 MG TABLET PO (21:38)
[2024-09-30] MEDS: 0.9 % Sodium Chloride Flush 3 ML SYRINGE IVFLUSH (23:52)
[2024-09-30] MEDS: Lactated Ringers 1,000 ML 100 ML IVCONT (23:54)
[2024-10-01] VITALS (8 sets, daily range): BP systolic 105–125; BP diastolic 61–72; PULSE 77–93; RESP 16–18; TEMP 36.3–36.9; O2SAT 95–100; BMI 15.4
[2024-10-01] LABS: Glucose, Whole Blood 85 mg/dL (60-115)
[2024-10-01 02:38] LABS: Appearance Urine Cloudy; Color Urine Yellow; Glucose Urine UA Negative (Negative); Leukocyte Esterase Urine Negative (Negative); Nitrite Urine Negative (Negative); UMIC TRIGGER UACC YES; Urine Blood Negative (Negative); Urine Ketones 40 mg/dL (Negative); Urine Protein 30 (1+) mg/dL (Neg-Trace)
[2024-10-01 03:06] LABS: Bacteria Urine None Seen (None Seen); Epith (RTE) Cast Present; RBC Urine 0-2 /HPF (0-2); WBC Urine 0-5 /HPF (0-5)
[2024-10-01 06:05] LABS: Anion Gap 12 (12-20); Blood Urea Nitrogen 31 mg/dL (9-16); C Reactive Protein < 0.10 mg/dL (< or = 0.50); Carbon Dioxide 19 mmol/L (22-29); Chloride 110 mmol/L (96-108); Creatinine Clr Calc Pharmacy 42.3; Estimated Glomerular Filt Rate > 60; Glucose Random 86 mg/dL (60-115); Potassium 4.1 mmol/L (3.3-5.1); Sodium 137 mmol/L (135-145)
[2024-10-01] MEDS: Omeprazole 20 MG CAPSULE.DR PO ×2 (08:07→21:43)
[2024-10-01] MEDS: methylPREDNISolone Sod Succ 40 MG/ML VIAL 30 MG IVPUSH ×2 (08:07→21:39)
[2024-10-01] MEDS: Magnesium Oxide 400 MG TABLET 200 MG PO (10:10)
[2024-10-01] MEDS: ondansetron HCL 4 MG/2 ML VIAL IVPUSH ×2 (10:10→18:23)
[2024-10-01] MEDS: Lactated Ringers 1,000 ML 100 ML IVCONT (10:10)
--- NOTE | 2024-10-01 10:54 | HO.PM.IMPN ---
Subjective Subjective Date of Service: 10/01/24 Interval History: Seen and evaluated this morning feels little better tolerating supplements but having soft stool no other events Review of Systems Review of Systems: Yes all other systems are reviewed and are negative Physical Exam Vital Signs: Vital Signs: Last Vital Signs Temp 97.4 F 10/01/24 10:04 Pulse 78 10/01/24 10:04 Resp 18 10/01/24 10:04 BP 111/72 10/01/24 10:04 Pulse Ox 100 10/01/24 10:04 O2 Del Method Room Air 10/01/24 10:04 BMI result Body Mass Index 15.5 Const: Other: Constitutional : interactive, not in distress, underweight Cardiovascular : no JVP, no lower extremity edema Respiratory : bilateral chest movement, not in resp distress Gastrointestinal: soft, lax, Non tender Skin : Warm, Dry Neurological : Alert & oriented , No focal deficit Objective Data Active Medications Albuterol Sulfate (Albuterol Sulfate 90 Mcg 8 Gm Inhaler) 2 puff INHALE Q6H PRN PRN Reason: Shortness Of Breath Carisoprodol (Carisoprodol 350 Mg Tablet) 350 mg PO BEDTIME [facility] Last Admin: 09/30/24 21:38 Dose: 350 mg Documented By: ISAAK Celecoxib (Celecoxib 100 Mg Capsule) 100 mg PO DAILY [facility] Last Admin: 10/01/24 10:47 Dose: Not Given Documented By: LESLIE Non-Admin Reason: Patient Refused Enoxaparin Sodium (Enoxaparin Sodium 40 Mg/0.4 Ml Syringe) 40 mg SUBCUT Q24H [facility] Last Admin: 09/30/24 21:37 Dose: 40 mg Documented By: ISAAK Guaifenesin/Dextromethorphan (Guaifenesin Dm 200/20/10 Ml 10 Ml Syrup) 10 ml PO Q4H PRN PRN Reason: Cough Lactated Ringer's (Lr) 1,000 mls @ 100 mls/hr IVCONT .Q10H [facility] Last Admin: 10/01/24 10:10 Dose: 100 mls/hr Documented By: LESLIE Magnesium Hydroxide (Milk Of Magnesia 30 Ml Oral.Susp) 30 ml PO DAILY PRN PRN Reason: Constipation Magnesium Oxide (Magnesium Oxide 400 Mg Tablet) 200 mg PO DAILY [facility] Last Admin: 10/01/24 10:10 Dose: 200 mg Documented By: LESLIE Melatonin (Melatonin 3 Mg Tablet) 6 mg PO BEDTIME PRN PRN Reason: Insomnia Methylprednisolone Sodium Succinate (Methylprednisolone Sod Succ 40 Mg/Ml Vial) 30 mg IVPUSH Q12H [facility] Last Admin: 10/01/24 08:07 Dose: 30 mg Documented By: SCOTT Montelukast Sodium (Montelukast Sodium 10 Mg Tablet) 10 mg PO BEDTIME [facility] Last Admin: 09/30/24 21:37 Dose: 10 mg Documented By: ISAAK Omeprazole (Omeprazole 20 Mg Capsule.Dr) 20 mg PO BID@0630,1630 [facility] Last Admin: 10/01/24 08:07 Dose: 20 mg Documented By: SCOTT Ondansetron HCl (Ondansetron Hcl 4 Mg/2 Ml Vial) 4 mg IVPUSH Q8H PRN PRN Reason: Nausea and Vomiting Last Admin: 10/01/24 10:10 Dose: 4 mg Documented By: LESLIE Oxycodone HCl (Oxycodone Hcl Immed Release 5 Mg Tablet) 5 mg PO Q6H PRN PRN Reason: Pain, Severe (Pain Scale 7-10) Propranolol HCl (Propranolol Hcl 10 Mg Tablet) 10 mg PO BEDTIME PRN; Protocol PRN Reason: anxiety Sodium Chloride (0.9 % Sodium Chloride Flush 3 Ml Syringe) 3 ml IVFLUSH QSHIFT [facility] Last Admin: 10/01/24 08:06 Dose: Not Given Documented By: SCOTT Non-Admin Reason: IV Running Labs 09/30/24 17:10 10/01/24 05:16 Labs: Laboratory Results - last 24 hr 09/30/24 09/30/24 09/30/24 17:09 17:10 20:55 MCV 82.5 MCH 27.2 MCHC 32.9 RDW 14.7 Plt Count 215 MPV 10.9 Immature Gran % (Auto) 0.5 H Neut % (Auto) 59.8 Lymph % (Auto) 29.6 [place] % (Auto) 6.9 Eos % (Auto) 3.1 Baso % (Auto) 0.1 Lymph # (Auto) 2.5 [place] # (Auto) 0.6 Eos # (Auto) 0.3 Baso # (Auto) 0.0 Abs Immat Gran (auto) 0.04 H Absolute Neuts (auto) 5.0 Absolute Nucleated RBC 0.000 Nucleated RBC % (auto) 0.0 PT 12.4 INR 1.1 Anion Gap 16 Estim Creat Clear Calc 35.4 Estimated GFR > 60 POC Glucose 71 Random Glucose 77 Calcium 8.9 Magnesium 1.9 Total Bilirubin 0.3 AST 53 H ALT 86 H Alkaline Phosphatase 76 Ammonia 35 Troponin I High Sens 3.3 C-Reactive Protein B-Natriuretic Peptide 20 Total Protein 6.8 Albumin 3.7 Prealbumin Lipase 57 Urine Color Urine Appearance Urine pH Ur Specific [place] Urine Protein Urine Glucose (UA) Urine Ketones Urine Blood Urine Nitrite Ur Leukocyte Esterase Urine RBC Urine WBC Ur Squamous Epith Cells Urine Bacteria Epithelial Casts Hyaline Casts Influenza Type A (PCR) NEGATIVE Influenza Type B (PCR) NEGATIVE RSV RNA Qual (PCR) NEGATIVE SARS-CoV-2 RNA (RT-PCR) POSITIVE A 09/30/24 10/01/24 10/01/24 23:52 02:25 05:16 MCV MCH MCHC RDW Plt Count MPV Immature Gran % (Auto) Neut % (Auto) Lymph % (Auto) [place] % (Auto) Eos % (Auto) Baso % (Auto) Lymph # (Auto) [place] # (Auto) Eos # (Auto) Baso # (Auto) Abs Immat Gran (auto) Absolute Neuts (auto) Absolute Nucleated RBC Nucleated RBC % (auto) PT INR Anion Gap 12 Estim Creat Clear Calc 42.3 Estimated GFR > 60 POC Glucose 85 Random Glucose 86 Calcium 8.0 L D Magnesium Total Bilirubin AST ALT Alkaline Phosphatase Ammonia Troponin I High Sens C-Reactive Protein < 0.10 B-Natriuretic Peptide Total Protein Albumin Prealbumin 18.0 L Lipase Urine Color Yellow Urine Appearance Cloudy Urine pH 6.0 Ur Specific [place] 1.020 Urine Protein 30 (1+) H Urine Glucose (UA) Negative Urine Ketones 40 Urine Blood Negative Urine Nitrite Negative Ur Leukocyte Esterase Negative Urine RBC 0-2 Urine WBC 0-5 Ur Squamous Epith Cells 3-5 Urine Bacteria None Seen Epithelial Casts Present Hyaline Casts 11-20 Influenza Type A (PCR) Influenza Type B (PCR) RSV RNA Qual (PCR) SARS-CoV-2 RNA (RT-PCR) Assessment and Plan (1) Protein calorie malnutrition: Status: Acute (2) Adult failure to thrive: Status: Acute (3) Crohn's disease: Status: Acute (4) Chronic diarrhea: Status: Acute Plan Pt is a 74-year-old female with a PMH significant for?SLE, fibromyalgia, Crohn's disease, HTN, HLD, asthma, GERD, and migraines who presents to the ED at the recommendation of her feather renovator Dr. Blackburn for failure to thrive. Pt will be admitted to the hospital for treatment and further evaluation for failure to thrive in a patient with intractable diarrhea and inability to tolerate p.o. intake. Failure to thrive in setting of Crohn's disease postprandial intractable diarrhea, decrease p.o. intake, weight loss on Ange for Crohn's disease dc maintenance fluids Antiemetics, analgesics for pain management Diet as tolerated GI consult Follow BMP Protein calorie malnutrition, moderate. underweight. Reports 42 lb weight loss since April supplement with ensure t.i.d., magic cup b.i.d. Dietitian/nutrition consult Transaminitis Chronic, at baseline Likely secondary to Crohn's Asthma Not in acute exacerbation Continue home inhalers HLD Continue acetamide GERD PPI Anxiety Continue propranolol Full Code DVT Prophylaxis: Lovenox Pt will require a hospitalization overnight for treatment of?adult failure to thrive in the setting of intractable postprandial diarrhea in the setting of patient with Crohn's disease. pending GI evaluation and tolerance of diet. Quality Stroke Does the patient have a stroke diagnosis?: No VTE Prior VTE?: No VTE Risk Level:: Medical - moderate - high VTE Device Contraindication: Treatment Not Indicated VTE Drug Contraindication: N/A - Med Ordered
[2024-10-01 12:11] LABS: Glucose, Whole Blood 64 mg/dL (60-115)
[2024-10-01] MEDS: Glucose Gel 15 GM GEL..GRAM. PO (12:34)
[2024-10-01 13:11] LABS: Glucose, Whole Blood 75 mg/dL (60-115)
[2024-10-01] MEDS: Metoclopramide HCl 5 MG TABLET PO (17:14)
[2024-10-01] MEDS: 0.9 % Sodium Chloride Flush 3 ML SYRINGE IVFLUSH (17:15)
[2024-10-01] MEDS: Enoxaparin Sodium 40 MG/0.4 ML SYRINGE SUBCUT (17:15)
[2024-10-01] MEDS: Simethicone 80 MG TAB.CHEW 160 MG PO (18:15)
[2024-10-01 18:22] LABS: Glucose, Whole Blood 83 mg/dL (60-115)
[2024-10-01 19:39] LABS: CDiff Gene PCR NEGATIVE (Negative)
[2024-10-01 20:44] LABS: Leukocytes Stool Qualitative NEGATIVE (NEGATIVE)
[2024-10-01] MEDS: Montelukast Sodium 10 MG TABLET PO (21:43)
[2024-10-02] MEDS: 0.9 % Sodium Chloride Flush 3 ML SYRINGE IVFLUSH ×4 (00:30→21:13)
[2024-10-02] MEDS: Metoclopramide HCl 5 MG TABLET PO ×3 (00:57→23:48)
[2024-10-02] MEDS: Celecoxib 100 MG CAPSULE PO ×2 (00:58→23:48)
[2024-10-02] MEDS: carisoprodoL 350 MG TABLET PO ×2 (00:58→23:48)
[2024-10-02 02:56] LABS: Glucose, Whole Blood 112 mg/dL (60-115)
[2024-10-02 04:00] VITALS: BP 107/57; PULSE 85; RESP 16; TEMP 36.6; O2SAT 96
--- NOTE | 2024-10-02 04:17 | PC.NURSE ---
Acquired care of pt. at 1945 10/01/24; daughter at bedside. Pt. reports the following for food intake/BM's from 1900 to 99: At 20:00, 2/3 cup of mandarin oranges. Pt. then states in the bathroom for 30-40mins. with moderate amt of liquid stool. Sips of water with oral meds-see I/O and 4 oz. cup of vanilla ice cream prior at 00:30 prior to oral meds. Pt. states she then had 3 moderate sized liquid stool in bathroom. Instructed pt. to save for measuring.
[2024-10-02] MEDS: Lactated Ringers 1,000 ML 80 ML IVCONT (05:30)
[2024-10-02 05:47] VITALS: BMI 17.7
[2024-10-02 05:48] LABS: Glucose, Whole Blood 98 mg/dL (60-115)
[2024-10-02] MEDS: methylPREDNISolone Sod Succ 40 MG/ML VIAL 30 MG IVPUSH ×2 (07:59→21:13)
[2024-10-02 08:00] VITALS: BP 108/69; PULSE 88; RESP 18; TEMP 36.4; O2SAT 100
[2024-10-02] MEDS: ondansetron HCL 4 MG/2 ML VIAL IVPUSH ×2 (08:00→17:10)
[2024-10-02] MEDS: Omeprazole 20 MG CAPSULE.DR PO ×2 (08:00→21:14)
[2024-10-02] MEDS: Magnesium Oxide 400 MG TABLET 200 MG PO (08:00)
[2024-10-02 08:40] LABS: Glucose, Whole Blood 89 mg/dL (60-115)
[2024-10-02 08:54] LABS: Anion Gap 10 (12-20); Blood Urea Nitrogen 24 mg/dL (9-16); Calcium 8.2 mg/dL (8.4-10.2); Carbon Dioxide 21 mmol/L (22-29); Chloride 112 mmol/L (96-108); Creatinine Clr Calc Pharmacy 48.3; Estimated Glomerular Filt Rate > 60; Glucose Random 95 mg/dL (60-115); Potassium 3.7 mmol/L (3.3-5.1); Sodium 139 mmol/L (135-145)
[2024-10-02 09:01] LABS: Adenovirus F 40/41 Not Detected (Not Detect.); Astrovirus Not Detected (Not Detect.); Campylobacter Not Detected (Not Detect.); Cryptosporidium Not Detected (Not Detect.); Cyclospora cayetanensis Not Detected (Not Detect.); E. coli EAEC Not Detected (Not Detect.); E. coli EPEC Not Detected (Not Detect.); E. coli ETEC Not Detected (Not Detect.); E. coli STEC Not Detected (Not Detect.); Entamoeba histolytica Not Detected (Not Detect.); Giardia lamblia Not Detected (Not Detect.); Norovirus GI/GII Not Detected (Not Detect.); Plesiomonas shigelloides Not Detected (Not Detect.); Rotavirus A Not Detected (Not Detect.); Salmonella Not Detected (Not Detect.); Sapovirus Not Detected (Not Detect.); Shigella sp./EIEC Not Detected (Not Detect.); Vibrio Not Detected (Not Detect.); Vibrio Cholerae Not Detected (Not Detect.); Yersinia enterocolitica Not Detected (Not Detect.)
[2024-10-02] MEDS: Loperamide HCl 2 MG CAPSULE PO ×3 (10:37→21:14)
[2024-10-02 10:58] LABS: Glucose, Whole Blood 102 mg/dL (60-115)
--- NOTE | 2024-10-02 11:17 | MHC.CM.PN ---
Pt self-care, lives at home with her . Her family will transport her home. HCP copy requested. PCP: Dr. Parvez Altamirano
[2024-10-02 12:00] VITALS: BP 111/77; PULSE 80; RESP 12; TEMP 36.6; O2SAT 96
--- NOTE | 2024-10-02 13:07 | P.PNIM_ITS ---
Subjective Subjective Date of Service: 10/02/24 Interval History: Seen and evaluated this morning feels little better but still reporting diarrhea tolerating supplements and diet in small amount no other events Review of Systems Review of Systems: Yes all other systems are reviewed and are negative Physical Exam 2 Vital Signs: Vital Signs: Last Vital Signs Temp 98 F 10/02/24 12:00 Pulse 80 10/02/24 12:00 Resp 12 10/02/24 12:00 BP 111/77 10/02/24 12:00 Pulse Ox 96 10/02/24 12:00 O2 Del Method Room Air 10/02/24 12:00 BMI result Body Mass Index 17.7 Const: Other: Constitutional : interactive, not in distress, underweight Cardiovascular : no JVP, no lower extremity edema Respiratory : bilateral chest movement, not in resp distress Gastrointestinal: soft, lax, Non tender Skin : Warm, Dry Neurological : Alert & oriented , No focal deficit Objective Data Active Medications Albuterol Sulfate (Albuterol Sulfate 90 Mcg 8 Gm Inhaler) 2 puff INHALE Q6H PRN PRN Reason: Shortness Of Breath Carisoprodol (Carisoprodol 350 Mg Tablet) 350 mg PO DAILY@0000 [facility] Last Admin: 10/02/24 00:58 Dose: 350 mg Documented By: MARCELL Celecoxib (Celecoxib 100 Mg Capsule) 100 mg PO DAILY@0000 [facility] Last Admin: 10/02/24 00:58 Dose: 100 mg Documented By: MARCELL Enoxaparin Sodium (Enoxaparin Sodium 40 Mg/0.4 Ml Syringe) 40 mg SUBCUT Q24H [facility] Last Admin: 10/01/24 17:15 Dose: 40 mg Documented By: LESLIE Glucose (Glucose Gel 15 Gm Gel..Gram.) 15 gm PO Q15M PRN PRN Reason: per Hypoglycemia Standing Ord. Last Admin: 10/01/24 12:34 Dose: 15 gm Documented By: LESLIE Guaifenesin/Dextromethorphan (Guaifenesin Dm 200/20/10 Ml 10 Ml Syrup) 10 ml PO Q4H PRN PRN Reason: Cough Dextrose (D10) 250 mls @ 750 mls/hr IV Q15M PRN PRN Reason: per Hypoglycemia Standing Ord. Lactated Ringer's (Lr) 1,000 mls @ 80 mls/hr IVCONT .[id number] [facility] Stop: 10/02/24 17:44 Last Admin: 10/02/24 05:30 Dose: 80 mls/hr Documented By: MARCELL Loperamide HCl (Loperamide Hcl 2 Mg Capsule) 2 mg PO Q4H PRN PRN Reason: Diarrhea Last Admin: 10/02/24 10:37 Dose: 2 mg Documented By: LESLIE Magnesium Hydroxide (Milk Of Magnesia 30 Ml Oral.Susp) 30 ml PO DAILY PRN PRN Reason: Constipation Magnesium Oxide (Magnesium Oxide 400 Mg Tablet) 200 mg PO DAILY [facility] Last Admin: 10/02/24 08:00 Dose: 200 mg Documented By: LESLIE Melatonin (Melatonin 3 Mg Tablet) 6 mg PO BEDTIME PRN PRN Reason: Insomnia Methylprednisolone Sodium Succinate (Methylprednisolone Sod Succ 40 Mg/Ml Vial) 30 mg IVPUSH Q12H [facility] Last Admin: 10/02/24 07:59 Dose: 30 mg Documented By: LESLIE Metoclopramide HCl (Metoclopramide Hcl 5 Mg Tablet) 5 mg PO TID@0000,0900,1700 [facility] Last Admin: 10/02/24 09:13 Dose: Not Given Documented By: LESLIE Non-Admin Reason: Patient Refused Montelukast Sodium (Montelukast Sodium 10 Mg Tablet) 10 mg PO BEDTIME [facility] Last Admin: 10/01/24 21:43 Dose: 10 mg Documented By: MARCELL Non-Formulary Medication (Cyclosporine [Restasis]) 1 drop EYE-BOTH BID [facility] Omeprazole (Omeprazole 20 Mg Capsule.Dr) 20 mg PO BID@0900,2100 [facility] Last Admin: 10/02/24 08:00 Dose: 20 mg Documented By: LESLIE Ondansetron HCl (Ondansetron Hcl 4 Mg/2 Ml Vial) 4 mg IVPUSH Q8H PRN PRN Reason: Nausea and Vomiting Last Admin: 10/02/24 08:00 Dose: 4 mg Documented By: LESLIE Oxycodone HCl (Oxycodone Hcl Immed Release 5 Mg Tablet) 5 mg PO Q6H PRN PRN Reason: Pain, Severe (Pain Scale 7-10) Propranolol HCl (Propranolol Hcl 10 Mg Tablet) 10 mg PO BEDTIME PRN; Protocol PRN Reason: anxiety Sodium Chloride (0.9 % Sodium Chloride Flush 3 Ml Syringe) 3 ml IVFLUSH QSHIFT [facility] Last Admin: 10/02/24 08:00 Dose: 3 ml Documented By: LESLIE Labs 09/30/24 17:10 10/02/24 07:44 Labs: Laboratory Results - last 24 hr 10/01/24 10/01/24 10/01/24 13:04 18:09 18:16 Anion Gap Estim Creat Clear Calc Estimated GFR POC Glucose 75 83 Random Glucose Calcium Stool Leukocytes, Qual NEGATIVE Stl C. cayetanensis PCR Not Detected Stool Rotavirus A PCR Not Detected Stl Adenov F 40/41 PCR Not Detected Stool Astrovirus (PCR) Not Detected Stool Campylobacter PCR Not Detected Stool Cryptosporidium PCR Not Detected Stl Sh Tox Pr E STEC PCR Not Detected Stool E coli O157 PCR Not applicable Stl Enterotoxigenic E PCR Not Detected Stool EPEC (PCR) Not Detected Stool EAEC (PCR) Not Detected Stl E. histolytica PCR Not Detected Stool Giardia Lamblia PCR Not Detected Stl P. shigelloides PCR Not Detected Stool Salmonella PCR Not Detected Stool Sapovirus (PCR) Not Detected Stl Shigella/EIEC PCR Not Detected St Y.enterocolitica PCR Not Detected Stool Vibrio (PCR) Not Detected Stl Vibrio cholerae PCR Not Detected Stl Norovirus GI/GII PCR Not Detected C. difficile Tox B Gene NEGATIVE 10/02/24 10/02/24 10/02/24 02:51 05:43 07:44 Anion Gap 10 L Estim Creat Clear Calc 48.3 Estimated GFR > 60 POC Glucose 112 98 Random Glucose 95 Calcium 8.2 L Stool Leukocytes, Qual Stl C. cayetanensis PCR Stool Rotavirus A PCR Stl Adenov F 40/41 PCR Stool Astrovirus (PCR) Stool Campylobacter PCR Stool Cryptosporidium PCR Stl Sh Tox Pr E STEC PCR Stool E coli O157 PCR Stl Enterotoxigenic E PCR Stool EPEC (PCR) Stool EAEC (PCR) Stl E. histolytica PCR Stool Giardia Lamblia PCR Stl P. shigelloides PCR Stool Salmonella PCR Stool Sapovirus (PCR) Stl Shigella/EIEC PCR St Y.enterocolitica PCR Stool Vibrio (PCR) Stl Vibrio cholerae PCR Stl Norovirus GI/GII PCR C. difficile Tox B Gene 10/02/24 10/02/24 08:21 10:54 Anion Gap Estim Creat Clear Calc Estimated GFR POC Glucose 89 102 Random Glucose Calcium Stool Leukocytes, Qual Stl C. cayetanensis PCR Stool Rotavirus A PCR Stl Adenov F 40/41 PCR Stool Astrovirus (PCR) Stool Campylobacter PCR Stool Cryptosporidium PCR Stl Sh Tox Pr E STEC PCR Stool E coli O157 PCR Stl Enterotoxigenic E PCR Stool EPEC (PCR) Stool EAEC (PCR) Stl E. histolytica PCR Stool Giardia Lamblia PCR Stl P. shigelloides PCR Stool Salmonella PCR Stool Sapovirus (PCR) Stl Shigella/EIEC PCR St Y.enterocolitica PCR Stool Vibrio (PCR) Stl Vibrio cholerae PCR Stl Norovirus GI/GII PCR C. difficile Tox B Gene Assessment and Plan (1) Protein calorie malnutrition: Status: Acute (2) Crohn's disease: Status: Acute (3) Chronic diarrhea: Status: Acute Plan Pt is a 74-year-old female with a PMH significant for?SLE, fibromyalgia, Crohn's disease, HTN, HLD, asthma, GERD, and migraines who presents to the ED at the recommendation of her algebraist Dr. Blackburn for failure to thrive. Pt will be admitted to the hospital for treatment and further evaluation for failure to thrive in a patient with intractable diarrhea and inability to tolerate p.o. intake. Failure to thrive in setting of Crohn's disease postprandial intractable diarrhea, decrease p.o. intake, weight loss on Ange for Crohn's disease keep maintenance fluids Antiemetics, analgesics for pain management Diet as tolerated with supplement Anti-diarrhea as no C.Diff GI input appreciated, Budesonide on discharge, fluids and diarrhea management Follow BMP Protein calorie malnutrition, moderate. underweight. Reports 42 lb weight loss since April supplement with ensure t.i.d., magic cup b.i.d. Dietitian/nutrition consult Transaminitis Chronic, at baseline Likely secondary to Crohn's Asthma Not in acute exacerbation Continue home inhalers HLD Continue acetamide GERD PPI Anxiety Continue propranolol Full Code DVT Prophylaxis: Lovenox Pt will require a hospitalization overnight for treatment of?adult failure to thrive in the setting of intractable postprandial diarrhea in the setting of patient with Crohn's disease. pending GI evaluation and tolerance of diet. Quality Stroke Does the patient have a stroke diagnosis?: No VTE Prior VTE?: No VTE Risk Level:: Medical - moderate - high VTE Device Contraindication: Treatment Not Indicated VTE Drug Contraindication: N/A - Med Ordered
--- NOTE | 2024-10-02 15:50 | P.PNGI_ITS ---
Subjective Subjective Date of Service: 10/02/24 Critical Care Time (minutes): 15 Physical Exam 2 Vital Signs: Vital Signs: Last Vital Signs Temp 98 F 10/02/24 12:00 Pulse 80 10/02/24 12:00 Resp 12 10/02/24 12:00 BP 111/77 10/02/24 12:00 Pulse Ox 96 10/02/24 12:00 O2 Del Method Room Air 10/02/24 12:00 BMI result Body Mass Index 17.7 GI: Inspection: Yes normal to inspection Palpation (GI): Soft to palpation and nontender Auscultation: normal bowel sounds Objective Data Labs 09/30/24 17:10 10/02/24 07:44 Labs: Laboratory Results - last 24 hr 10/01/24 10/01/24 10/02/24 18:09 18:16 02:51 Sodium Potassium Chloride Carbon Dioxide Anion Gap BUN Creatinine Estim Creat Clear Calc Estimated GFR POC Glucose 83 112 Random Glucose Calcium Stool Leukocytes, Qual NEGATIVE Stl C. cayetanensis PCR Not Detected Stool Rotavirus A PCR Not Detected Stl Adenov F 40/41 PCR Not Detected Stool Astrovirus (PCR) Not Detected Stool Campylobacter PCR Not Detected Stool Cryptosporidium PCR Not Detected Stl Sh Tox Pr E STEC PCR Not Detected Stool E coli O157 PCR Not applicable Stl Enterotoxigenic E PCR Not Detected Stool EPEC (PCR) Not Detected Stool EAEC (PCR) Not Detected Stl E. histolytica PCR Not Detected Stool Giardia Lamblia PCR Not Detected Stl P. shigelloides PCR Not Detected Stool Salmonella PCR Not Detected Stool Sapovirus (PCR) Not Detected Stl Shigella/EIEC PCR Not Detected St Y.enterocolitica PCR Not Detected Stool Vibrio (PCR) Not Detected Stl Vibrio cholerae PCR Not Detected Stl Norovirus GI/GII PCR Not Detected C. difficile Tox B Gene NEGATIVE 10/02/24 10/02/24 10/02/24 05:43 07:44 08:21 Sodium 139 Potassium 3.7 Chloride 112 H Carbon Dioxide 21 L Anion Gap 10 L BUN 24 H Creatinine 0.72 Estim Creat Clear Calc 48.3 Estimated GFR > 60 POC Glucose 98 89 Random Glucose 95 Calcium 8.2 L Stool Leukocytes, Qual Stl C. cayetanensis PCR Stool Rotavirus A PCR Stl Adenov F 40/41 PCR Stool Astrovirus (PCR) Stool Campylobacter PCR Stool Cryptosporidium PCR Stl Sh Tox Pr E STEC PCR Stool E coli O157 PCR Stl Enterotoxigenic E PCR Stool EPEC (PCR) Stool EAEC (PCR) Stl E. histolytica PCR Stool Giardia Lamblia PCR Stl P. shigelloides PCR Stool Salmonella PCR Stool Sapovirus (PCR) Stl Shigella/EIEC PCR St Y.enterocolitica PCR Stool Vibrio (PCR) Stl Vibrio cholerae PCR Stl Norovirus GI/GII PCR C. difficile Tox B Gene 10/02/24 10:54 Sodium Potassium Chloride Carbon Dioxide Anion Gap BUN Creatinine Estim Creat Clear Calc Estimated GFR POC Glucose 102 Random Glucose Calcium Stool Leukocytes, Qual Stl C. cayetanensis PCR Stool Rotavirus A PCR Stl Adenov F 40/41 PCR Stool Astrovirus (PCR) Stool Campylobacter PCR Stool Cryptosporidium PCR Stl Sh Tox Pr E STEC PCR Stool E coli O157 PCR Stl Enterotoxigenic E PCR Stool EPEC (PCR) Stool EAEC (PCR) Stl E. histolytica PCR Stool Giardia Lamblia PCR Stl P. shigelloides PCR Stool Salmonella PCR Stool Sapovirus (PCR) Stl Shigella/EIEC PCR St Y.enterocolitica PCR Stool Vibrio (PCR) Stl Vibrio cholerae PCR Stl Norovirus GI/GII PCR C. difficile Tox B Gene Procedures Date of Service Date of Service: 10/02/24 Progress Note: A&P Assessment and plan (1) Crohn's disease: Status: Acute (2) Chronic diarrhea: Status: Acute (3) Weight loss: Status: Acute Plan 73 YF with lupus, HTN, HLD, fibromyalgia, asthma, GERD, and migraines, recent COVID-19 infection 2 weeks ago admitted to [facility] [place] on 09/30/24 for weakness, constant nausea, vomiting, persistent diarrhea, poor PO intake, wt loss and failure to thrive. Pt reports 42 lbs wt loss since April, and loosing 5 lbs over past 2 days (wt decreased from 102 lbs on 08/11 to 85 lbs) Pt complains of nocturnal and post prandial diarrhea with brief periods of relief of 4-5 hours) IBD serologies were positive for Crohn's disease. 08/24/24 CT enterography showed: 1. No bowel obstruction, free intraperitoneal air or abscess is seen. No focal bowel wall thickening is seen. There is mild diverticulosis, without acute diverticulitis. Pt was started on Humira for Crohn's disease (took loading dose on 09/09/24 followed by 2nd dose of Humira after 2 weeks without relief of symptoms). She was started on a Prednisone taper since 09/22/24 Pt has been coming to short stay once a week for IV hydration 10/02/24 Pt reports she is feeling 25% better with improved PO intake - took 50% of her breakfast and 25% of lunch. Was able to drink coffee after adding ensure to it (vanilla flavoured) Nursing staff reports pt had multiple episodes of diarrhea last night. GI Panel and stool C Diff was negative Labs negative so far, BUN decreased after IV hydration. CRP - normal RECOMMENDATIONS: Continue IV fluids, IV steroids and PO imodium Time Spent With Patient Time: Total time managing care of this patient today ____ minutes. Quality Stroke Does the patient have a stroke diagnosis?: No VTE Prior VTE?: No VTE Risk Level:: Medical - moderate - high VTE Device Contraindication: Treatment Not Indicated VTE Drug Contraindication: N/A - Med Ordered
[2024-10-02 15:54] VITALS: BMI 15.5
[2024-10-02 16:00] VITALS: BP 121/62; PULSE 84; RESP 18; TEMP 36.8; O2SAT 99
[2024-10-02] MEDS: Enoxaparin Sodium 40 MG/0.4 ML SYRINGE SUBCUT (17:10)
[2024-10-02 18:17] LABS: Glucose, Whole Blood 97 mg/dL (60-115)
[2024-10-02 19:56] VITALS: BP 150/88; PULSE 92; RESP 20; TEMP 36.6; O2SAT 99
[2024-10-02 20:52] LABS: Glucose, Whole Blood 107 mg/dL (60-115)
[2024-10-02] MEDS: Montelukast Sodium 10 MG TABLET PO (21:14)
[2024-10-03] VITALS (8 sets, daily range): BP systolic 98–133; BP diastolic 60–84; PULSE 76–95; RESP 17–19; TEMP 36.1–37.2; O2SAT 96–99; BMI 18.1
[2024-10-03 01:28] LABS: Glucose, Whole Blood 121 mg/dL (60-115)
[2024-10-03] MEDS: Loperamide HCl 2 MG CAPSULE PO ×3 (02:27→23:09)
[2024-10-03 06:13] LABS: Glucose, Whole Blood 97 mg/dL (60-115)
[2024-10-03] MEDS: Metoclopramide HCl 5 MG TABLET PO ×3 (10:26→23:10)
[2024-10-03] MEDS: Dicyclomine HCl 10 MG CAPSULE PO ×3 (10:27→21:15)
[2024-10-03] MEDS: Loperamide HCl 2 MG CAPSULE 4 MG PO (10:27)
[2024-10-03] MEDS: Magnesium Oxide 400 MG TABLET 200 MG PO (10:27)
[2024-10-03] MEDS: methylPREDNISolone Sod Succ 40 MG/ML VIAL 30 MG IVPUSH ×2 (10:27→21:15)
[2024-10-03] MEDS: Omeprazole 20 MG CAPSULE.DR PO ×2 (10:27→21:15)
[2024-10-03] MEDS: 0.9 % Sodium Chloride Flush 3 ML SYRINGE IVFLUSH ×3 (10:28→21:16)
[2024-10-03 11:38] LABS: Glucose, Whole Blood 81 mg/dL (60-115)
--- NOTE | 2024-10-03 12:22 | MHC.CLN ---
RE; CONSULT PT IS MODERATELY MALNOURISHED PT WITH 17% SIGNIFICANT WT LOSS X 5 MONTHS WITH CHRONIC POOR PO INTAKE AND UNRESOLVED INTRACTABLE N/V/D SECONDARY TO CROHN'S DZ PT TAKES SIPS/BITES OF CERTAIN FOODS DIET RX: LOW FIBER-APPROPRIATE SPOKE WITH PT REGARDING DIET AND PO INTAKE. PT IS NOT MEETING ESTIMATED KCAL/PROTEIN NEEDS X 6 MONTHS. PT WITH VERY RESTRICTIVE FOOD PREFERENCES R/T CROHN'S. EDUCATION HANDOUT GIVEN TO PT FOR CROHN'S. FOOD PREFERENCES RECORDED AND SENT TO [facility]. PT NOT TOLERATING ENSURE TID -DRINKS AT HOME AND ADDS TO COFFEE BUT CURRENTLY CAN NOT TOLERATE. DISCUSSED CASE WITH MD-DOES NOT WANT PPN AT THIS TIME PLAN: RECOMMEND REFERRAL TO OUT PT RD UPON DISCHARGE CONSULT RD IF PPN NEEDED MONITOR PO INTAKE -DAY 5 <25% PO INTAKE RECOMMEND STARTING ALTERNATIVE NUTRITION
--- NOTE | 2024-10-03 13:25 | HO.PM.IMPN ---
Subjective Subjective Date of Service: 10/03/24 Interval History: Seen and evaluated this morning still reporting diarrhea and decrease po intake tolerating supplements and diet in small amount no other events Review of Systems Review of Systems: Yes all other systems are reviewed and are negative Physical Exam Vital Signs: Vital Signs: Last Vital Signs Temp 96.9 F 10/03/24 11:18 Pulse 79 10/03/24 11:18 Resp 17 10/03/24 11:18 BP 112/66 10/03/24 11:18 Pulse Ox 97 10/03/24 11:18 O2 Del Method Room Air 10/03/24 11:18 BMI result Body Mass Index 18.1 Const: Other: Constitutional : interactive, not in distress, underweight Cardiovascular : no JVP, no lower extremity edema Respiratory : bilateral chest movement, not in resp distress Gastrointestinal: soft, lax, mild RLQ tenderness Skin : Warm, Dry Neurological : Alert & oriented , No focal deficit Objective Data Active Medications Albuterol Sulfate (Albuterol Sulfate 90 Mcg 8 Gm Inhaler) 2 puff INHALE Q6H PRN PRN Reason: Shortness Of Breath Carisoprodol (Carisoprodol 350 Mg Tablet) 350 mg PO DAILY@0000 [facility] Last Admin: 10/02/24 23:48 Dose: 350 mg Documented By: ALBINO Celecoxib (Celecoxib 100 Mg Capsule) 100 mg PO DAILY@0000 [facility] Last Admin: 10/02/24 23:48 Dose: 100 mg Documented By: ALBINO Dicyclomine HCl (Dicyclomine Hcl 10 Mg Capsule) 10 mg PO QIDACHS [facility] Last Admin: 10/03/24 10:27 Dose: 10 mg Documented By: BONNIE Enoxaparin Sodium (Enoxaparin Sodium 40 Mg/0.4 Ml Syringe) 40 mg SUBCUT Q24H [facility] Last Admin: 10/02/24 17:10 Dose: 40 mg Documented By: LESLIE Glucose (Glucose Gel 15 Gm Gel..Gram.) 15 gm PO Q15M PRN PRN Reason: per Hypoglycemia Standing Ord. Last Admin: 10/01/24 12:34 Dose: 15 gm Documented By: LESLIE Guaifenesin/Dextromethorphan (Guaifenesin Dm 200/20/10 Ml 10 Ml Syrup) 10 ml PO Q4H PRN PRN Reason: Cough Dextrose (D10) 250 mls @ 750 mls/hr IV Q15M PRN PRN Reason: per Hypoglycemia Standing Ord. Loperamide HCl (Loperamide Hcl 2 Mg Capsule) 2 mg PO Q6H [facility] Last Admin: 10/03/24 10:42 Dose: Not Given Documented By: BONNIE Non-Admin Reason: previously given, see MAR Magnesium Hydroxide (Milk Of Magnesia 30 Ml Oral.Susp) 30 ml PO DAILY PRN PRN Reason: Constipation Magnesium Oxide (Magnesium Oxide 400 Mg Tablet) 200 mg PO DAILY [facility] Last Admin: 10/03/24 10:27 Dose: 200 mg Documented By: BONNIE Melatonin (Melatonin 3 Mg Tablet) 6 mg PO BEDTIME PRN PRN Reason: Insomnia Methylprednisolone Sodium Succinate (Methylprednisolone Sod Succ 40 Mg/Ml Vial) 30 mg IVPUSH Q12H [facility] Last Admin: 10/03/24 10:27 Dose: 30 mg Documented By: BONNIE Metoclopramide HCl (Metoclopramide Hcl 5 Mg Tablet) 5 mg PO TID@0000,0900,1700 [facility] Last Admin: 10/03/24 10:26 Dose: 5 mg Documented By: BONNIE Montelukast Sodium (Montelukast Sodium 10 Mg Tablet) 10 mg PO BEDTIME [facility] Last Admin: 10/02/24 21:14 Dose: 10 mg Documented By: ALBINO Non-Formulary Medication (Cyclosporine [Restasis]) 1 drop EYE-BOTH BID [facility] Omeprazole (Omeprazole 20 Mg Capsule.) 20 mg PO BID@0900,2100 [facility] Last Admin: 10/03/24 10:27 Dose: 20 mg Documented By: BONNIE Ondansetron HCl (Ondansetron Hcl 4 Mg/2 Ml Vial) 4 mg IVPUSH Q8H PRN PRN Reason: Nausea and Vomiting Last Admin: 10/02/24 17:10 Dose: 4 mg Documented By: ALLA-RIVELGIN Oxycodone HCl (Oxycodone Hcl Immed Release 5 Mg Tablet) 5 mg PO Q6H PRN PRN Reason: Pain, Severe (Pain Scale 7-10) Propranolol HCl (Propranolol Hcl 10 Mg Tablet) 10 mg PO BEDTIME PRN; Protocol PRN Reason: anxiety Sodium Chloride (0.9 % Sodium Chloride Flush 3 Ml Syringe) 3 ml IVFLUSH QSHIFT [facility] Last Admin: 10/03/24 10:28 Dose: 3 ml Documented By: BONNIE Labs 09/30/24 17:10 10/02/24 07:44 Labs: Laboratory Results - last 24 hr 10/02/24 10/02/24 10/03/24 18:13 20:39 01:24 POC Glucose 97 107 121 H 10/03/24 10/03/24 06:06 11:30 POC Glucose 97 81 Assessment and Plan (1) Protein calorie malnutrition: Status: Acute (2) Adult failure to thrive: Status: Acute (3) Crohn's disease: Status: Acute Plan Pt is a 74-year-old female with a PMH significant for?SLE, fibromyalgia, Crohn's disease, HTN, HLD, asthma, GERD, and migraines who presents to the ED at the recommendation of her tube test technician Dr. Blackburn for failure to thrive. Pt will be admitted to the hospital for treatment and further evaluation for failure to thrive in a patient with intractable diarrhea and inability to tolerate p.o. intake. Failure to thrive in setting of Crohn's disease postprandial intractable diarrhea, decrease p.o. intake, weight loss on Ange for Crohn's disease, had 2 doses only keep maintenance fluids Imodium ATC and PRN for now Dicyclomine ATC Antiemetics, analgesics for pain management Diet as tolerated with supplement GI input appreciated, Budesonide on discharge, fluids and diarrhea management Follow BMP Protein calorie malnutrition, moderate. underweight. Reports 42 lb weight loss since April supplement with ensure t.i.d., magic cup b.i.d. [employer], consider PPN, i will hold for now as it is not sustainable or terminal clerk Transaminitis Chronic, at baseline Likely secondary to Crohn's Asthma Not in acute exacerbation Continue home inhalers HLD Continue acetamide GERD PPI Anxiety Continue propranolol Full Code DVT Prophylaxis: Lovenox Pt will require a hospitalization overnight for treatment of?adult failure to thrive in the setting of intractable postprandial diarrhea in the setting of patient with Crohn's disease. pending GI evaluation and tolerance of diet. Quality Stroke Does the patient have a stroke diagnosis?: No VTE Prior VTE?: No VTE Risk Level:: Medical - moderate - high VTE Device Contraindication: Treatment Not Indicated VTE Drug Contraindication: N/A - Med Ordered
[2024-10-03] MEDS: Propranolol HCL 10 MG TABLET PO (17:17)
[2024-10-03] MEDS: Enoxaparin Sodium 40 MG/0.4 ML SYRINGE SUBCUT (17:19)
[2024-10-03 18:05] LABS: Glucose, Whole Blood 134 mg/dL (60-115)
[2024-10-03] MEDS: Montelukast Sodium 10 MG TABLET PO (21:15)
[2024-10-03] MEDS: Simethicone 80 MG TAB.CHEW 160 MG PO (23:08)
[2024-10-03] MEDS: carisoprodoL 350 MG TABLET PO (23:09)
[2024-10-03] MEDS: Celecoxib 100 MG CAPSULE PO (23:09)
[2024-10-04 04:00] VITALS: BP 131/80; PULSE 76; RESP 16; TEMP 36.9; O2SAT 97
[2024-10-04 06:00] VITALS: BMI 18.7
[2024-10-04 06:17] LABS: Glucose, Whole Blood 82 mg/dL (60-115)
[2024-10-04 06:48] LABS: Anion Gap 12 (12-20); Blood Urea Nitrogen 29 mg/dL (9-16); Carbon Dioxide 23 mmol/L (22-29); Chloride 107 mmol/L (96-108); Creatinine Clr Calc Pharmacy 64.5; Estimated Glomerular Filt Rate > 60; Glucose Random 92 mg/dL (60-115); Potassium 3.9 mmol/L (3.3-5.1); Sodium 138 mmol/L (135-145)
[2024-10-04] MEDS: Loperamide HCl 2 MG CAPSULE PO ×4 (07:20→21:41)
[2024-10-04 08:00] VITALS: BP 125/73; PULSE 82; RESP 18; TEMP 36.4; O2SAT 98
[2024-10-04] MEDS: Magnesium Oxide 400 MG TABLET 200 MG PO (09:17)
[2024-10-04] MEDS: Omeprazole 20 MG CAPSULE.DR PO (09:17)
[2024-10-04] MEDS: Dicyclomine HCl 10 MG CAPSULE PO ×4 (09:17→21:40)
[2024-10-04] MEDS: methylPREDNISolone Sod Succ 40 MG/ML VIAL 30 MG IVPUSH ×2 (09:18→21:39)
[2024-10-04] MEDS: 0.9 % Sodium Chloride Flush 3 ML SYRINGE IVFLUSH ×3 (09:18→21:41)
[2024-10-04] MEDS: Metoclopramide HCl 5 MG TABLET PO ×3 (09:19→21:41)
--- NOTE | 2024-10-04 10:18 | MHC.CLN ---
F/U PT IS MODERATELY MALNOURISHED PT WITH 17% SIGNIFICANT WT LOSS X 5 MONTHS WITH CHRONIC POOR PO INTAKE AND UNRESOLVED INTRACTABLE N/V/D SECONDARY TO CROHN'S DZ PT TAKES SIPS/BITES OF CERTAIN FOODS-CONTINUES WITH DIARRHEA DIET RX: LOW FIBER-APPROPRIATE PT IS NOT MEETING ESTIMATED KCAL/PROTEIN NEEDS X 6 MONTHS. PT WITH VERY RESTRICTIVE FOOD PREFERENCES R/T CROHN'S. PT NOT TOLERATING ENSURE TID (PREFERS [facility]AN[facility]A FLAVOR ONLY) REVIEWED LABS DISCUSSED WITH MD AND PT -TO START PPN TODAY DISCUSSED WITH PHARMACY RECOMMEND PPN AT 55ML/HR TO PROVIDE 673KCALS, 132G DEXTROSE, 51G PROTEIN REPLETE LYTES NEEDED; MONITOR K+, MG, PHOS CLOSELY SECONDARY TO INCREASED RISK FOR RE-FEEDING MD PURSUING BALANCE RECESSER PLAN FOR TPN R/T MALABSORPTION/MALNUTRITION -CM AWARE
--- NOTE | 2024-10-04 10:42 | P.PNIM_ITS ---
Subjective Subjective Date of Service: 10/04/24 Interval History: diarrhea improved, intake has not Physical Exam 2 Vital Signs: Vital Signs: Last Vital Signs Temp 97.6 F 10/04/24 08:00 Pulse 82 10/04/24 08:00 Resp 18 10/04/24 08:00 BP 125/73 10/04/24 08:00 Pulse Ox 98 10/04/24 08:00 O2 Del Method Room Air 10/04/24 08:00 BMI result Body Mass Index 18.7 Const: Other: Constitutional : interactive, not in distress, underweight Cardiovascular : no JVP, no lower extremity edema Respiratory : bilateral chest movement, not in resp distress Gastrointestinal: soft, lax, mild RLQ tenderness Skin : Warm, Dry Neurological : Alert & oriented , No focal deficit Objective Data Active Medications Albuterol Sulfate (Albuterol Sulfate 90 Mcg 8 Gm Inhaler) 2 puff INHALE Q6H PRN PRN Reason: Shortness Of Breath Budesonide (Budesonide Dr 3 Mg Capsule) 9 mg PO DAILY [facility] Carisoprodol (Carisoprodol 350 Mg Tablet) 350 mg PO DAILY@0000 [facility] Last Admin: 10/03/24 23:09 Dose: 350 mg Documented By: LYNNE Celecoxib (Celecoxib 100 Mg Capsule) 100 mg PO DAILY@0000 [facility] Last Admin: 10/03/24 23:09 Dose: 100 mg Documented By: LYNNE Dicyclomine HCl (Dicyclomine Hcl 10 Mg Capsule) 10 mg PO QIDACHS [facility] Last Admin: 10/04/24 09:17 Dose: 10 mg Documented By: KRISTAN Enoxaparin Sodium (Enoxaparin Sodium 40 Mg/0.4 Ml Syringe) 40 mg SUBCUT Q24H [facility] Last Admin: 10/03/24 17:19 Dose: 40 mg Documented By: BONNIE Glucose (Glucose Gel 15 Gm Gel..Gram.) 15 gm PO Q15M PRN PRN Reason: per Hypoglycemia Standing Ord. Last Admin: 10/01/24 12:34 Dose: 15 gm Documented By: LESLIE Guaifenesin/Dextromethorphan (Guaifenesin Dm 200/20/10 Ml 10 Ml Syrup) 10 ml PO Q4H PRN PRN Reason: Cough Dextrose (D10) 250 mls @ 750 mls/hr IV Q15M PRN PRN Reason: per Hypoglycemia Standing Ord. Loperamide HCl (Loperamide Hcl 2 Mg Capsule) 2 mg PO Q6H [facility] Last Admin: 10/04/24 07:20 Dose: 2 mg Documented By: LYNNE Magnesium Hydroxide (Milk Of Magnesia 30 Ml Oral.Susp) 30 ml PO DAILY PRN PRN Reason: Constipation Magnesium Oxide (Magnesium Oxide 400 Mg Tablet) 200 mg PO DAILY [facility] Last Admin: 10/04/24 09:17 Dose: 200 mg Documented By: KRISTAN Melatonin (Melatonin 3 Mg Tablet) 6 mg PO BEDTIME PRN PRN Reason: Insomnia Methylprednisolone Sodium Succinate (Methylprednisolone Sod Succ 40 Mg/Ml Vial) 30 mg IVPUSH Q12H [facility] Last Admin: 10/04/24 09:18 Dose: 30 mg Documented By: KRISTAN Metoclopramide HCl (Metoclopramide Hcl 5 Mg Tablet) 5 mg PO TID@0000,0900,1700 [facility] Last Admin: 10/04/24 09:19 Dose: 5 mg Documented By: KRISTAN Montelukast Sodium (Montelukast Sodium 10 Mg Tablet) 10 mg PO BEDTIME [facility] Last Admin: 10/03/24 21:15 Dose: 10 mg Documented By: LYNNE Omeprazole (Omeprazole 20 Mg Capsule.) 20 mg PO BID@0900,2100 [facility] Last Admin: 10/04/24 09:17 Dose: 20 mg Documented By: KRISTAN Ondansetron HCl (Ondansetron Hcl 4 Mg/2 Ml Vial) 4 mg IVPUSH Q8H PRN PRN Reason: Nausea and Vomiting Last Admin: 10/02/24 17:10 Dose: 4 mg Documented By: LESLIE Oxycodone HCl (Oxycodone Hcl Immed Release 5 Mg Tablet) 5 mg PO Q6H PRN PRN Reason: Pain, Severe (Pain Scale 7-10) Propranolol HCl (Propranolol Hcl 10 Mg Tablet) 10 mg PO BEDTIME PRN; Protocol PRN Reason: anxiety Last Admin: 10/03/24 17:17 Dose: 10 mg Documented By: BONNIE Comments: per Dr. Abuhashmeh, okay to give now to pt reporting anxiety Sodium Chloride (0.9 % Sodium Chloride Flush 3 Ml Syringe) 3 ml IVFLUSH QSHIFT [facility]AR[facility] Last Admin: 10/04/24 09:18 Dose: 3 ml Documented By: KRISTAN Labs 09/30/24 17:10 10/04/24 05:53 Labs: Laboratory Results - last 24 hr 10/03/24 10/03/24 10/04/24 11:30 18:01 05:53 Anion Gap 12 Estim Creat Clear Calc 64.5 Estimated GFR > 60 POC Glucose 81 134 H Random Glucose 92 Calcium 8.0 L Ref Lab Test Result Cancelled 10/04/24 06:12 Anion Gap Estim Creat Clear Calc Estimated GFR POC Glucose 82 Random Glucose Calcium Ref Lab Test Result Assessment and Plan (1) Protein calorie malnutrition: Status: Acute (2) Adult failure to thrive: Status: Acute (3) Crohn's disease: Status: Acute Plan 74F PMH significant for?SLE, fibromyalgia, Crohn's disease, HTN, HLD, asthma, GERD, and migraines who presented to the ED at the 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 Blackburn for failure to thrive. Pt admitted to the hospital for treatment and further evaluation for failure to thrive in a patient with intractable diarrhea and inability to tolerate p.o. intake. Failure to thrive and moderate protein calorie malnutrition in setting of Crohn's disease postprandial intractable diarrhea, decrease p.o. intake, weight loss on Ange for Crohn's disease, had 2 doses only Imodium ATC and PRN for now - diarrhea improved Dicyclomine ATC Antiemetics, analgesics for pain management Diet as tolerated with supplement GI input appreciated, Budesonide on discharge, fluids and diarrhea management Follow BMP Protein calorie malnutrition, moderate. underweight. Reports 42 lb weight loss since April supplement with ensure t.i.d., magic cup b.i.d. nutrition appreciated, will initiate ppn Transaminitis Chronic, at baseline Likely secondary to Crohn's Asthma mild intermittent Not in acute exacerbation Continue home inhalers GERD PPI Anxiety Continue propranolol Full Code DVT Prophylaxis: Lovenox reason for continued hospitalization: malnourished Quality Stroke Does the patient have a stroke diagnosis?: No VTE Prior VTE?: No VTE Risk Level:: Medical - moderate - high VTE Device Contraindication: Treatment Not Indicated VTE Drug Contraindication: N/A - Med Ordered
[2024-10-04 11:11] LABS: Magnesium 1.6 mg/dL (1.6-2.6); Phosphorus 2.9 mg/dL (2.7-4.5)
[2024-10-04 11:40] LABS: Glucose, Whole Blood 77 mg/dL (60-115)
[2024-10-04] MEDS: Budesonide DR 3 MG Capsule 9 MG PO (11:42)
[2024-10-04 12:00] VITALS: BP 132/89; PULSE 78; RESP 14; TEMP 36.5; O2SAT 96
[2024-10-04 15:43] VITALS: BP 116/61; PULSE 79; RESP 12; TEMP 36.7; O2SAT 96
--- NOTE | 2024-10-04 15:45 | PM.GIPN ---
Subjective Subjective Date of Service: 10/04/24 Interval History: Pt notes slight improvement in PO intake - was able to eat a cheese cake this afternoon with diarrhea or abdominal pain. Denies significant diarrhea last night - passed a lot gas Continues to have altered taste in her mouth. Critical Care Time (minutes): 25 Physical Exam Vital Signs: Vital Signs: Last Vital Signs Temp 97.7 F 10/04/24 12:00 Pulse 78 10/04/24 12:00 Resp 14 10/04/24 12:00 BP 132/89 10/04/24 12:00 Pulse Ox 96 10/04/24 12:00 O2 Del Method Room Air 10/04/24 12:00 BMI result Body Mass Index 18.7 Const: Other: General: no acute distress Nutritional Appearance: appears this and frail and underweight Orientation/consciousness: patient oriented x3 Neck Neck: Yes normal visual inspection Chest Chest palpation & inspection: normal inspection of the chest Resp Effort & Inspection: normal respiratory effort Auscultation: clear to auscultation bilaterally Cardio Palpation: normal PMI Rate: regular rate Rhythm: regular rhythm Heart sounds: S1 normal heart sound present, S2 normal heart sound present and no murmurs GI Palpation (GI): Soft to palpation, Tenderness to palpation present (GI) (Mild diffuse abdominal tenderness) and No hepatosplenomegaly present Auscultation: normal bowel sounds Objective Data Labs 10/07/24 06:26 10/07/24 06:26 Labs: Laboratory Results - last 24 hr 10/03/24 10/04/24 10/04/24 18:01 05:53 06:12 Sodium 138 Potassium 3.9 Chloride 107 Carbon Dioxide 23 Anion Gap 12 BUN 29 H Creatinine 0.57 Estim Creat Clear Calc 64.5 Estimated GFR > 60 POC Glucose 134 H 82 Random Glucose 92 Calcium 8.0 L Phosphorus Magnesium Albumin Ref Lab Test Result Cancelled 10/04/24 10/04/24 10:50 11:34 Sodium Potassium Chloride Carbon Dioxide Anion Gap BUN Creatinine Estim Creat Clear Calc Estimated GFR POC Glucose 77 Random Glucose Calcium Phosphorus 2.9 Magnesium 1.6 Albumin 3.0 L Ref Lab Test Result Procedures Date of Service Date of Service: 10/07/24 Progress Note: A&P Assessment and plan (1) Adult failure to thrive: Status: Acute (2) Abdominal pain: Status: Acute (3) Chronic diarrhea: Status: Acute Plan 73 YF with lupus, HTN, HLD, fibromyalgia, asthma, GERD, and migraines, recent COVID-19 infection 2 weeks ago [place] [facility] [place] for weakness, constant nausea, vomiting, persistent diarrhea, poor PO intake, wt loss and failure to thrive. Pt reports 42 lbs wt loss since April, and lost 5 lbs over past 2 days (wt decreased from 102 lbs on 08/11 to 85 lbs) Pt complains of nocturnal and post prandial diarrhea with brief periods of relief of 4-5 hours) IBD serologies were positive for Crohn's disease. Pt was started on Humira for Crohn's disease (took loading dose on 09/09/24 followed by 2nd dose of Humira after 2 weeks without relief of symptoms). She was started on a Prednisone taper since 09/22/24 Labs for secretory diarrhea - negative so far Pt was discussed with Dr Mar ([place] [facility] who advised checking pt for autoimmune enteropathy and CVID (since CVID associated IBD can be atypical) And treating with PO budesonide, continue Humira for now and add MTX or Azathioprine Pt elected to start MTX. RECOMMENDATIONS: 1. Start oral Budesonide 9 mg every morning (Not on formulary and inpt pharmacist was able to get approval) 2. Methotrexate 12.5 mg every week with folic acid (side effects reviewed with the patient) 3. IV PPN per recommendation of project portfolio analyst 4. Anti enterocyte ab and anti goblet cell ab were ordered and not available [place] [facility] [place]. Pt is due for 3rd Humira injection (40 mg SQ) on 10/08/24 - order placed for non-Formulary medication and discussed with Pt's nurse and inpatient pharmacist Pt will use her Humira from home. Referral sent [place] [facility] [place] schedule an outpt appt with Dr Mar (IBD specialist) for a 2nd opinion. Time Spent With Patient Time: Total time managing care of this patient today ____ minutes. Quality Stroke Does the patient have a stroke diagnosis?: No VTE Prior VTE?: No VTE Risk Level:: Medical - moderate - high VTE Device Contraindication: Treatment Not Indicated VTE Drug Contraindication: N/A - Med Ordered
[2024-10-04] MEDS: METHOTREXATE SODIUM SUBCUT (16:23)
[2024-10-04] MEDS: Enoxaparin Sodium 40 MG/0.4 ML SYRINGE SUBCUT (17:50)
[2024-10-04 18:28] LABS: Glucose, Whole Blood 100 mg/dL (60-115)
[2024-10-04 20:00] VITALS: BP 132/80; PULSE 83; RESP 16; TEMP 36.9; O2SAT 98
[2024-10-04] MEDS: Parenteral Nutrition 1,320 ML 55 ML IV (21:39)
[2024-10-04] MEDS: Montelukast Sodium 10 MG TABLET PO (21:40)
[2024-10-04] MEDS: carisoprodoL 350 MG TABLET PO (21:40)
[2024-10-04] MEDS: Celecoxib 100 MG CAPSULE PO (21:40)
[2024-10-04] MEDS: Famotidine 20 MG TABLET PO (21:41)
[2024-10-04 23:53] LABS: Glucose, Whole Blood 147 mg/dL (60-115)
[2024-10-05] VITALS (8 sets, daily range): BP systolic 110–135; BP diastolic 61–75; PULSE 65–77; RESP 14–20; TEMP 36.4–37; O2SAT 96–98; BMI 16.0
[2024-10-05 06:15] LABS: Glucose, Whole Blood 168 mg/dL (60-115)
[2024-10-05] MEDS: Loperamide HCl 2 MG CAPSULE PO ×3 (06:43→17:01)
[2024-10-05 06:54] LABS: Hematocrit 33.4 % (37.0-47.0); Hemoglobin 11.2 g/dl (12.0-16.0); Mean Corpuscular HGB Conc 33.5 g/dl (31.0-35.0); Mean Corpuscular Hemoglobin 27.8 pg (27.0-33.0); Mean Corpuscular Volume 82.9 fL (80.0-98.0); Mean Platelet Volume 11.7 fL (9.4-12.3); PLT CLUMP 1; Red Blood Count 4.03 X10*6/uL (4.20-5.50); Red Cell Distribution Width 14.3 % (11.0-16.0)
[2024-10-05 07:41] LABS: Alanine Aminotransferase 57 U/L (0-31); Alkaline Phosphatase 56 U/L (39-117); Anion Gap 6 (12-20); Aspartate Amino Transferase 38 U/L (5-31); Bilirubin Direct 0.2 mg/dL (0.0-0.5); Bilirubin Total 0.3 mg/dL (0.0-1.0); Blood Urea Nitrogen 31 mg/dL (9-16); Carbon Dioxide 28 mmol/L (22-29); Chloride 106 mmol/L (96-108); Creatinine Clr Calc Pharmacy 64.5; Estimated Glomerular Filt Rate > 60; Glucose Random 182 mg/dL (60-115); Magnesium 1.8 mg/dL (1.6-2.6); Phosphorus 3.4 mg/dL (2.7-4.5); Sodium 136 mmol/L (135-145); Total Protein 5.1 g/dL (6.5-8.0)
[2024-10-05] MEDS: Magnesium Oxide 400 MG TABLET 200 MG PO (08:07)
[2024-10-05] MEDS: 0.9 % Sodium Chloride Flush 3 ML SYRINGE IVFLUSH ×2 (08:08→21:15)
[2024-10-05] MEDS: Dicyclomine HCl 10 MG CAPSULE PO ×4 (08:08→21:14)
[2024-10-05] MEDS: Famotidine 20 MG TABLET PO ×2 (08:08→21:14)
[2024-10-05] MEDS: methylPREDNISolone Sod Succ 40 MG/ML VIAL 30 MG IVPUSH (08:08)
[2024-10-05] MEDS: Budesonide DR 3 MG Capsule 9 MG PO (08:08)
[2024-10-05] MEDS: Metoclopramide HCl 5 MG TABLET PO ×2 (08:10→17:01)
[2024-10-05 08:11] LABS: Platelet Count 123 X10*3/uL (160-400); White Blood Count 6.5 X10*3/uL (4.8-10.8)
--- NOTE | 2024-10-05 09:01 | P.PNIM_ITS ---
Subjective Subjective Date of Service: 10/05/24 Interval History: abd pain, had less than 1 ensure Physical Exam 2 Vital Signs: Vital Signs: Last Vital Signs Temp 97.6 F 10/05/24 08:03 Pulse 76 10/05/24 08:03 Resp 16 10/05/24 08:03 BP 118/75 10/05/24 08:03 Pulse Ox 98 10/05/24 08:03 O2 Del Method Room Air 10/05/24 08:03 BMI result Body Mass Index 18.7 Const: Other: General: no acute distress Nutritional Appearance: appears this and frail and underweight Orientation/consciousness: patient oriented x3 Neck Neck: Yes normal visual inspection Chest Chest palpation & inspection: normal inspection of the chest Resp Effort & Inspection: normal respiratory effort Auscultation: clear to auscultation bilaterally Cardio Palpation: normal PMI Rate: regular rate Rhythm: regular rhythm Heart sounds: S1 normal heart sound present, S2 normal heart sound present and no murmurs GI Palpation (GI): Soft to palpation, Tenderness to palpation present (GI) (Mild diffuse abdominal tenderness) and No hepatosplenomegaly present Auscultation: normal bowel sounds Objective Data Active Medications Albuterol Sulfate (Albuterol Sulfate 90 Mcg 8 Gm Inhaler) 2 puff INHALE Q6H PRN PRN Reason: Shortness Of Breath Budesonide (Budesonide Dr 3 Mg Capsule) 9 mg PO DAILY [facility] Last Admin: 10/05/24 08:08 Dose: 9 mg Documented By: KRISTAN Carisoprodol (Carisoprodol 350 Mg Tablet) 350 mg PO DAILY@0000 [facility] Last Admin: 10/04/24 21:40 Dose: 350 mg Documented By: LYNNE Celecoxib (Celecoxib 100 Mg Capsule) 100 mg PO DAILY@0000 [facility] Last Admin: 10/04/24 21:40 Dose: 100 mg Documented By: LYNNE Comments: OK BY DR SINGH TO GIVE EARLY Dicyclomine HCl (Dicyclomine Hcl 10 Mg Capsule) 10 mg PO QIDACHS [facility] Last Admin: 10/05/24 08:08 Dose: 10 mg Documented By: KRISTAN Enoxaparin Sodium (Enoxaparin Sodium 40 Mg/0.4 Ml Syringe) 40 mg SUBCUT Q24H [facility] Last Admin: 10/04/24 17:50 Dose: 40 mg Documented By: KRISTAN Famotidine (Famotidine 20 Mg Tablet) 20 mg PO BID [facility] Last Admin: 10/05/24 08:08 Dose: 20 mg Documented By: KRISTAN Glucose (Glucose Gel 15 Gm Gel..Gram.) 15 gm PO Q15M PRN PRN Reason: per Hypoglycemia Standing Ord. Last Admin: 10/01/24 12:34 Dose: 15 gm Documented By: LESLIE Guaifenesin/Dextromethorphan (Guaifenesin Dm 200/20/10 Ml 10 Ml Syrup) 10 ml PO Q4H PRN PRN Reason: Cough Dextrose (D10) 250 mls @ 750 mls/hr IV Q15M PRN PRN Reason: per Hypoglycemia Standing Ord. Nutrition (Parenteral) (Parenteral Nutrition) 1,320 mls @ 55 mls/hr IV .Q24H [facility]; Protocol Stop: 10/05/24 20:59 Last Admin: 10/04/24 21:39 Dose: 55 mls/hr Documented By: LYNNE Methotrexate 12.5 mg/ IV (Miscellaneous Supplies) 0.5 mls @ 0 mls/hr SUBCUT Q7D [facility] Last Admin: 10/04/24 16:23 Dose: 0.5 mls/hr Documented By: KRISTAN Co-signed By: ISAAC Loperamide HCl (Loperamide Hcl 2 Mg Capsule) 2 mg PO Q6H [facility] Last Admin: 10/05/24 06:43 Dose: 2 mg Documented By: LYNNE Magnesium Hydroxide (Milk Of Magnesia 30 Ml Oral.Susp) 30 ml PO DAILY PRN PRN Reason: Constipation Magnesium Oxide (Magnesium Oxide 400 Mg Tablet) 200 mg PO DAILY [facility] Last Admin: 10/05/24 08:07 Dose: 200 mg Documented By: KRISTAN Melatonin (Melatonin 3 Mg Tablet) 6 mg PO BEDTIME PRN PRN Reason: Insomnia Methylprednisolone Sodium Succinate (Methylprednisolone Sod Succ 40 Mg/Ml Vial) 30 mg IVPUSH Q12H [facility] Last Admin: 10/05/24 08:08 Dose: 30 mg Documented By: KRISTAN Metoclopramide HCl (Metoclopramide Hcl 5 Mg Tablet) 5 mg PO TID@0000,0900,1700 [facility] Last Admin: 10/05/24 08:10 Dose: 5 mg Documented By: KRISTAN Montelukast Sodium (Montelukast Sodium 10 Mg Tablet) 10 mg PO BEDTIME [facility] Last Admin: 10/04/24 21:40 Dose: 10 mg Documented By: BÁRBARAZERita Ondansetron HCl (Ondansetron Hcl 4 Mg/2 Ml Vial) 4 mg IVPUSH Q8H PRN PRN Reason: Nausea and Vomiting Last Admin: 10/02/24 17:10 Dose: 4 mg Documented By: LESLIE Oxycodone HCl (Oxycodone Hcl Immed Release 5 Mg Tablet) 5 mg PO Q6H PRN PRN Reason: Pain, Severe (Pain Scale 7-10) Propranolol HCl (Propranolol Hcl 10 Mg Tablet) 10 mg PO BEDTIME PRN; Protocol PRN Reason: anxiety Last Admin: 10/03/24 17:17 Dose: 10 mg Documented By: BONNIE Comments: per nicolas Marie to give now to pt reporting anxiety Sodium Chloride (0.9 % Sodium Chloride Flush 3 Ml Syringe) 3 ml IVFSH [facility] Last Admin: 10/05/24 08:08 Dose: 3 ml Documented By: KRISTAN Labs 10/05/24 06:25 10/05/24 06:25 Labs: Laboratory Results - last 24 hr 10/04/24 10/04/24 10/04/24 10:50 11:34 18:19 MCV MCH MCHC RDW Plt Count MPV Absolute Nucleated RBC Nucleated RBC % (auto) Anion Gap Estim Creat Clear Calc Estimated GFR POC Glucose 77 100 Random Glucose Calcium Phosphorus 2.9 Magnesium 1.6 Total Bilirubin Direct Bilirubin AST ALT Alkaline Phosphatase Total Protein Albumin 3.0 L 10/04/24 10/05/24 10/05/24 23:45 06:11 06:25 MCV 82.9 MCH 27.8 MCHC 33.5 RDW 14.3 Plt Count 123 L D MPV 11.7 Absolute Nucleated RBC 0.000 Nucleated RBC % (auto) 0.0 Anion Gap 6 L Estim Creat Clear Calc 64.5 Estimated GFR > 60 POC Glucose 147 H 168 H Random Glucose 182 H Calcium 8.0 L Phosphorus 3.4 Magnesium 1.8 Total Bilirubin 0.3 Direct Bilirubin 0.2 AST 38 H ALT 57 H Alkaline Phosphatase 56 Total Protein 5.1 L Albumin 3.0 L Assessment and Plan (1) Protein calorie malnutrition: Status: Acute (2) Adult failure to thrive: Status: Acute (3) Crohn's disease: Status: Acute Plan 74F PMH significant for?SLE, fibromyalgia, Crohn's disease, HTN, HLD, asthma, GERD, and migraines who presented to the ED at the 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 Blackburn for failure to thrive. Pt admitted to the hospital for treatment and further evaluation for failure to thrive in a patient with intractable diarrhea and inability to tolerate p.o. intake. Failure to thrive and moderate protein calorie malnutrition in setting of Crohn's disease postprandial intractable diarrhea, decrease p.o. intake, weight loss on Ange for Crohn's disease, had 2 doses only Imodium ATC and PRN for now - diarrhea improved Dicyclomine ATC Antiemetics, analgesics for pain management given iv methotrexate, continue budesonide, stop solumedrol Diet as tolerated with supplement GI input appreciated, Budesonide on discharge, fluids and diarrhea management Follow BMP Protein calorie malnutrition, moderate. underweight. Reports 42 lb weight loss since April supplement with ensure t.i.d., magic cup b.i.d. nutrition appreciated, started ppn 10/04/24 Transaminitis Chronic, at baseline Likely secondary to Crohn's Asthma mild intermittent Not in acute exacerbation Continue home inhalers GERD PPI Anxiety Continue propranolol Full Code DVT Prophylaxis: Lovenox reason for continued hospitalization: malnourished, unable to get enough nutrition po Quality Stroke Does the patient have a stroke diagnosis?: No VTE Prior VTE?: No VTE Risk Level:: Medical - moderate - high VTE Device Contraindication: Treatment Not Indicated VTE Drug Contraindication: N/A - Med Ordered
--- NOTE | 2024-10-05 10:16 | MHC.CLN ---
Addendum entered by Halle Lamar, MIKE 10/05/24 13:24: PT WITH EGG ALLERGY DISCUSSED WITH PT WHO REPORTED SHE DOES CONSUME FOODS WITH COOKED EGGS IN THEM HOWEVER AVOIDS EATING EGGS AND CAN NOT TAKE FLU SHOT D/T NOTED EGG ALLERGY LIPIDS TO BE HELD D/T EGG ALLERGEN PPN TO RUN AT 65ML/HR TO PROVIDE 796KCALS, 156G DEXTROSE, 66G PROTEIN REPLETE LYTES NEEDED Original Note: F/U PT IS MODERATELY MALNOURISHED SEE FULL CLINICAL NUTRITION ASSESSMENT DATED 10/03/24 PT TAKES SIPS/BITES -LESS THAN 1 ENSURE TODAY DIET RX: LOW FIBER-APPROPRIATE REVIEWED LABS-NO S/S RE-FEEDING DISCUSSED WITH PHARMACY RECOMMEND INCREASING PPN TO 65ML/HR WITH 55G LIPIDS TODAY TO PROVIDE 1346KCALS (30KCALS/KG), 156G DEXTROSE, 66G PROTEIN (1.5G/KG) REPLETE LYTES NEEDED; CHECKING TRIGS TODAY MONITOR K+, MG, PHOS CLOSELY SECONDARY TO INCREASED RISK FOR RE-FEEDING MONITOR FOR TPN TOLERANCE
--- NOTE | 2024-10-05 10:47 | MHC.CM.PN ---
EMR REVIEWED, PT CONT'S TO NEED TPN, THE ONLY [facility] WILLING TO ACCOMMODATE TPN IS NOT CONTRACTED W/PT'S INSURANCE, [facility] UNABLE TO D/T NSG NEEDING TO MAKE DAILY VISITS TO MIX TPN, CM WILL SEND OUT SNF REFERRALS TO [facility] TO DETERMINE IF THEY CAN DO TPN AND CONT TO FOLLOW DC NEEDS.
[2024-10-05 10:55] LABS: Triglycerides 100 mg/dL (<150)
[2024-10-05 11:34] LABS: Glucose, Whole Blood 160 mg/dL (60-115)
--- NOTE | 2024-10-05 13:07 | HE.PHANOTE ---
PPN Patient to start lipids today per dietary. Patient has egg allergy (rash). Contacted [facility] to see if there is an alternative for Nutrilipid which is derived from eggs. [facility] stated Smoflipid is safer alternative but still contains egg. Dr. Darling and Halle roblero. Holding off on Lipids for today for total calories of 796. Will research more about Smoflipid and will speak to patient about her allergy.
[2024-10-05] MEDS: Propranolol HCL 10 MG TABLET PO (15:22)
[2024-10-05] MEDS: Enoxaparin Sodium 40 MG/0.4 ML SYRINGE SUBCUT (17:02)
[2024-10-05 18:23] LABS: Glucose, Whole Blood 149 mg/dL (60-115)
[2024-10-05 20:29] LABS: Immunoglobulin E 413 kU/L (<OR=114)
[2024-10-05] MEDS: Montelukast Sodium 10 MG TABLET PO (21:14)
[2024-10-05] MEDS: Parenteral Nutrition 1,560 ML 65 ML IV (21:15)
[2024-10-06] MEDS: carisoprodoL 350 MG TABLET PO ×2 (00:31→23:48)
[2024-10-06] MEDS: Loperamide HCl 2 MG CAPSULE PO ×2 (00:31→08:57)
[2024-10-06] MEDS: Celecoxib 100 MG CAPSULE PO ×2 (00:32→23:48)
[2024-10-06 00:55] LABS: Glucose, Whole Blood 115 mg/dL (60-115)
[2024-10-06 01:29] LABS: Gastrin 35 pg/mL (<=100)
[2024-10-06] MEDS: Metoclopramide HCl 5 MG TABLET PO ×4 (01:36→23:48)
[2024-10-06 03:48] VITALS: BP 111/61; PULSE 69; RESP 15; TEMP 36.6; O2SAT 97
[2024-10-06 06:00] VITALS: BMI 16.3
[2024-10-06 06:11] LABS: Glucose, Whole Blood 119 mg/dL (60-115)
[2024-10-06 06:43] LABS: Alanine Aminotransferase 126 U/L (0-31); Albumin Level 2.7 g/dL (3.5-5.0); Alkaline Phosphatase 52 U/L (39-117); Anion Gap 7 (12-20); Aspartate Amino Transferase 110 U/L (5-31); Bilirubin Direct 0.2 mg/dL (0.0-0.5); Bilirubin Total 0.4 mg/dL (0.0-1.0); Blood Urea Nitrogen 24 mg/dL (9-16); Carbon Dioxide 27 mmol/L (22-29); Chloride 108 mmol/L (96-108); Creatinine Clr Calc Pharmacy 58.1; Estimated Glomerular Filt Rate > 60; Glucose Random 122 mg/dL (60-115); Magnesium 1.8 mg/dL (1.6-2.6); Potassium 4.1 mmol/L (3.3-5.1); Sodium 138 mmol/L (135-145); Total Protein 4.8 g/dL (6.5-8.0)
[2024-10-06 07:17] LABS: Hematocrit 32.2 % (37.0-47.0); Hemoglobin 10.6 g/dl (12.0-16.0); Mean Corpuscular HGB Conc 32.9 g/dl (31.0-35.0); Mean Corpuscular Hemoglobin 27.4 pg (27.0-33.0); Mean Corpuscular Volume 83.2 fL (80.0-98.0); Mean Platelet Volume 11.2 fL (9.4-12.3); Platelet Count 135 X10*3/uL (160-400); Red Blood Count 3.87 X10*6/uL (4.20-5.50); Red Cell Distribution Width 14.2 % (11.0-16.0); White Blood Count 7.5 X10*3/uL (4.8-10.8)
[2024-10-06 07:46] VITALS: BP 107/63; PULSE 77; RESP 18; TEMP 36.2; O2SAT 95
[2024-10-06] MEDS: Dicyclomine HCl 10 MG CAPSULE PO ×4 (08:58→21:20)
[2024-10-06] MEDS: Famotidine 20 MG TABLET PO ×2 (08:58→21:20)
[2024-10-06] MEDS: Magnesium Oxide 400 MG TABLET 200 MG PO (08:58)
[2024-10-06] MEDS: Budesonide DR 3 MG Capsule 9 MG PO (08:58)
--- NOTE | 2024-10-06 09:36 | MHC.CLN ---
F/U PO INTAKE 25% CONSISTENTLY DIET RX: LOW FIBER-APPROPRIATE PT DID REPORT SHE TRIED TO EAT CHEESECAKE WHICH CAUSED DIARRHEA EDUCATED PT ON MAKING BETTER FOOD CHOICES CONSISTENT WITH CROHN'S DZ-ENCOURAGE BLAND, SOFT EASILY DIGESTIBLE FOODS AT THIS TIME REVIEWED LABS DISCUSSED WITH PHARMACY PT WITH EGG ALLERGY-DO NOT GIVE LIPIDS (CONTAINS EGG DERIVATIVES AND INGREDIENTS) PPN TO CONTINUE TO RUN AT 65ML/HR TO PROVIDE 796KCALS, 156G DEXTROSE, 66G PROTEIN PPN PROVIDES 60% ESTIMATED KCAL NEEDS, 97% PROTEIN NEEDS REPLETE LYTES NEEDED
[2024-10-06 10:50] VITALS: BP 129/74; PULSE 71; RESP 18; TEMP 36.3; O2SAT 98
--- NOTE | 2024-10-06 10:50 | HO.PM.IMPN ---
Subjective Subjective Date of Service: 10/06/24 Interval History: still with poor appetite Physical Exam Vital Signs: Vital Signs: Last Vital Signs Temp 97.1 F 10/06/24 07:46 Pulse 77 10/06/24 07:46 Resp 18 10/06/24 07:46 BP 107/63 10/06/24 07:46 Pulse Ox 95 10/06/24 07:46 O2 Del Method Room Air 10/06/24 07:46 BMI result Body Mass Index 16.3 Const: Other: General: no acute distress Nutritional Appearance: appears this and frail and underweight Orientation/consciousness: patient oriented x3 Neck Neck: Yes normal visual inspection Chest Chest palpation & inspection: normal inspection of the chest Resp Effort & Inspection: normal respiratory effort Auscultation: clear to auscultation bilaterally Cardio Palpation: normal PMI Rate: regular rate Rhythm: regular rhythm Heart sounds: S1 normal heart sound present, S2 normal heart sound present and no murmurs GI Palpation (GI): Soft to palpation, Tenderness to palpation present (GI) (Mild diffuse abdominal tenderness) and No hepatosplenomegaly present Auscultation: normal bowel sounds Objective Data Active Medications Albuterol Sulfate (Albuterol Sulfate 90 Mcg 8 Gm Inhaler) 2 puff INHALE Q6H PRN PRN Reason: Shortness Of Breath Budesonide (Budesonide Dr 3 Mg Capsule) 9 mg PO DAILY [facility] Last Admin: 10/06/24 08:58 Dose: 9 mg Documented By: MARCO Carisoprodol (Carisoprodol 350 Mg Tablet) 350 mg PO DAILY@0000 [facility] Last Admin: 10/06/24 00:31 Dose: 350 mg Documented By: MARCELL Celecoxib (Celecoxib 100 Mg Capsule) 100 mg PO DAILY@0000 [facility] Last Admin: 10/06/24 00:32 Dose: 100 mg Documented By: MARCELL Dicyclomine HCl (Dicyclomine Hcl 10 Mg Capsule) 10 mg PO QIDACHS [facility] Last Admin: 10/06/24 08:58 Dose: 10 mg Documented By: MARCO Enoxaparin Sodium (Enoxaparin Sodium 40 Mg/0.4 Ml Syringe) 40 mg SUBCUT Q24H [facility] Last Admin: 10/05/24 17:02 Dose: 40 mg Documented By: KRISTAN Famotidine (Famotidine 20 Mg Tablet) 20 mg PO BID [facility] Last Admin: 10/06/24 08:58 Dose: 20 mg Documented By: MARCO Glucose (Glucose Gel 15 Gm Gel..Gram.) 15 gm PO Q15M PRN PRN Reason: per Hypoglycemia Standing Ord. Last Admin: 10/01/24 12:34 Dose: 15 gm Documented By: LESLIE Guaifenesin/Dextromethorphan (Guaifenesin Dm 200/20/10 Ml 10 Ml Syrup) 10 ml PO Q4H PRN PRN Reason: Cough Dextrose (D10) 250 mls @ 750 mls/hr IV Q15M PRN PRN Reason: per Hypoglycemia Standing Ord. Methotrexate 12.5 mg/ IV (Miscellaneous Supplies) 0.5 mls @ 0 mls/hr SUBCUT Q7D [facility] Last Admin: 10/04/24 16:23 Dose: 0.5 mls/hr Documented By: KRISTAN Co-signed By: ISAAC Nutrition (Parenteral) (Parenteral Nutrition) 1,560 mls @ 65 mls/hr IV .Q24H [facility]; Protocol Stop: 10/06/24 20:59 Last Admin: 10/05/24 21:15 Dose: 65 mls/hr Documented By: MARCELL Nutrition (Parenteral) (Parenteral Nutrition) 1,560 mls @ 65 mls/hr IV .Q24H [facility]; Protocol Stop: 10/07/24 20:59 Loperamide HCl (Loperamide Hcl 2 Mg Capsule) 2 mg PO Q6H [facility] Last Admin: 10/06/24 08:57 Dose: 2 mg Documented By: MARCO Magnesium Hydroxide (Milk Of Magnesia 30 Ml Oral.Susp) 30 ml PO DAILY PRN PRN Reason: Constipation Magnesium Oxide (Magnesium Oxide 400 Mg Tablet) 200 mg PO DAILY [facility] Last Admin: 10/06/24 08:58 Dose: 200 mg Documented By: MARCO Melatonin (Melatonin 3 Mg Tablet) 6 mg PO BEDTIME PRN PRN Reason: Insomnia Metoclopramide HCl (Metoclopramide Hcl 5 Mg Tablet) 5 mg PO TID@0000,0900,1700 [facility] Last Admin: 10/06/24 09:02 Dose: 5 mg Documented By: MARCO Montelukast Sodium (Montelukast Sodium 10 Mg Tablet) 10 mg PO BEDTIME [facility] Last Admin: 10/05/24 21:14 Dose: 10 mg Documented By: MARCELL Ondansetron HCl (Ondansetron Hcl 4 Mg/2 Ml Vial) 4 mg IVPUSH Q8H PRN PRN Reason: Nausea and Vomiting Last Admin: 10/02/24 17:10 Dose: 4 mg Documented By: LESLIE Propranolol HCl (Propranolol Hcl 10 Mg Tablet) 10 mg PO BEDTIME PRN; Protocol PRN Reason: anxiety Last Admin: 10/05/24 15:22 Dose: 10 mg Documented By: KRISTAN Sodium Chloride (0.9 % Sodium Chloride Flush 3 Ml Syringe) [facility] Admin: 10/05/24 21:15 Dose: 3 ml Documented By: MARCELL Labs 10/06/24 06:13 10/06/24 06:13 Labs: Laboratory Results - last 24 hr 10/01/24 10/01/24 10/04/24 05:16 18:09 16:47 MCV MCH MCHC RDW Plt Count MPV Absolute Nucleated RBC Nucleated RBC % (auto) Anion Gap Estim Creat Clear Calc Estimated GFR POC Glucose Random Glucose Calcium Phosphorus Magnesium Total Bilirubin Direct Bilirubin AST ALT Alkaline Phosphatase Total Protein Albumin Triglycerides Gastrin 35 Stl Isospora & Cyclospora TNP IgE 413 H 10/05/24 10/05/24 10/05/24 06:25 11:28 18:17 MCV MCH MCHC RDW Plt Count MPV Absolute Nucleated RBC Nucleated RBC % (auto) Anion Gap Estim Creat Clear Calc Estimated GFR POC Glucose 160 H 149 H Random Glucose Calcium Phosphorus Magnesium Total Bilirubin Direct Bilirubin AST ALT Alkaline Phosphatase Total Protein Albumin Triglycerides 100 Gastrin Stl Isospora & Cyclospora IgE 10/06/24 10/06/24 10/06/24 00:51 06:07 06:13 MCV 83.2 MCH 27.4 MCHC 32.9 RDW 14.2 Plt Count 135 L MPV 11.2 Absolute Nucleated RBC 0.000 Nucleated RBC % (auto) 0.0 Anion Gap 7 L Estim Creat Clear Calc 58.1 Estimated GFR > 60 POC Glucose 115 119 H Random Glucose 122 H Calcium 8.0 L Phosphorus 3.0 Magnesium 1.8 Total Bilirubin 0.4 Direct Bilirubin 0.2 AST 110 H ALT 126 H Alkaline Phosphatase 52 Total Protein 4.8 L Albumin 2.7 L Triglycerides Gastrin Stl Isospora & Cyclospora IgE Assessment and Plan (1) Protein calorie malnutrition: Status: Acute (2) Adult failure to thrive: Status: Acute (3) Crohn's disease: Status: Acute Plan 74F PMH significant for?SLE, fibromyalgia, Crohn's disease, HTN, HLD, asthma, GERD, and migraines who presented to the ED at the recommendation of her repack room worker Dr. Blackburn for failure to thrive. Pt admitted to the hospital for treatment and further evaluation for failure to thrive in a patient with intractable diarrhea and inability to tolerate p.o. intake. Failure to thrive and moderate protein calorie malnutrition in setting of Crohn's disease postprandial intractable diarrhea, decrease p.o. intake, weight loss on Ange for Crohn's disease, had 2 doses only Imodium ATC and PRN for now - diarrhea improved Dicyclomine ATC Antiemetics, analgesics for pain management given iv methotrexate, continue budesonide, stop solumedrol Diet as tolerated with supplement GI input appreciated, Budesonide on discharge, fluids and diarrhea management Follow BMP Protein calorie malnutrition, moderate. underweight. Reports 42 lb weight loss since April supplement with ensure t.i.d., magic cup b.i.d. nutrition appreciated, started ppn 10/04/24 Transaminitis Chronic, at baseline Likely secondary to Crohn's Asthma mild intermittent Not in acute exacerbation Continue home inhalers GERD PPI Anxiety Continue propranolol Full Code DVT Prophylaxis: Lovenox reason for continued hospitalization: malnourished, unable to get enough nutrition po Quality Stroke Does the patient have a stroke diagnosis?: No VTE Prior VTE?: No VTE Risk Level:: Medical - moderate - high VTE Device Contraindication: Treatment Not Indicated VTE Drug Contraindication: N/A - Med Ordered
[2024-10-06 11:21] LABS: Glucose, Whole Blood 91 mg/dL (60-115)
[2024-10-06 15:49] VITALS: BP 136/79; PULSE 79; RESP 18; TEMP 36.2; O2SAT 98
[2024-10-06] MEDS: Folic Acid 1 MG TABLET PO (17:46)
[2024-10-06 17:48] LABS: Glucose, Whole Blood 115 mg/dL (60-115)
[2024-10-06] MEDS: Enoxaparin Sodium 40 MG/0.4 ML SYRINGE SUBCUT (18:35)
[2024-10-06 20:00] VITALS: BP 120/71; PULSE 78; RESP 16; TEMP 36.6; O2SAT 99
[2024-10-06 20:55] LABS: Calcitonin <2 pg/mL (<=5)
[2024-10-06] MEDS: Montelukast Sodium 10 MG TABLET PO (21:20)
[2024-10-06] MEDS: Parenteral Nutrition 1,560 ML 65 ML IV (21:20)
[2024-10-06] MEDS: 0.9 % Sodium Chloride Flush 3 ML SYRINGE IVFLUSH (23:48)
[2024-10-07] VITALS (7 sets, daily range): BP systolic 103–139; BP diastolic 59–84; PULSE 72–82; RESP 14–18; TEMP 36.3–36.8; O2SAT 96–100; BMI 16.6
[2024-10-07 05:19] LABS: Glucose, Whole Blood 106 mg/dL (60-115)
[2024-10-07 07:03] LABS: Hematocrit 33.4 % (37.0-47.0); Hemoglobin 10.9 g/dl (12.0-16.0); Mean Corpuscular HGB Conc 32.6 g/dl (31.0-35.0); Mean Corpuscular Hemoglobin 27.3 pg (27.0-33.0); Mean Corpuscular Volume 83.7 fL (80.0-98.0); Mean Platelet Volume 11.3 fL (9.4-12.3); Platelet Count 135 X10*3/uL (160-400); Red Blood Count 3.99 X10*6/uL (4.20-5.50); White Blood Count 7.8 X10*3/uL (4.8-10.8)
[2024-10-07 07:25] LABS: Alanine Aminotransferase 133 U/L (0-31); Albumin Level 2.7 g/dL (3.5-5.0); Alkaline Phosphatase 59 U/L (39-117); Anion Gap 11 (12-20); Aspartate Amino Transferase 75 U/L (5-31); Bilirubin Direct 0.1 mg/dL (0.0-0.5); Bilirubin Total 0.3 mg/dL (0.0-1.0); Blood Urea Nitrogen 21 mg/dL (9-16); Carbon Dioxide 24 mmol/L (22-29); Chloride 107 mmol/L (96-108); Creatinine Clr Calc Pharmacy 66.3; Estimated Glomerular Filt Rate > 60; Glucose Random 100 mg/dL (60-115); Magnesium 1.9 mg/dL (1.6-2.6); Phosphorus 3.8 mg/dL (2.7-4.5); Potassium 4.3 mmol/L (3.3-5.1); Sodium 138 mmol/L (135-145); Total Protein 4.8 g/dL (6.5-8.0)
[2024-10-07] MEDS: Magnesium Oxide 400 MG TABLET 200 MG PO (08:32)
[2024-10-07] MEDS: Folic Acid 1 MG TABLET PO (08:32)
[2024-10-07] MEDS: Dicyclomine HCl 10 MG CAPSULE PO ×4 (08:32→20:47)
[2024-10-07] MEDS: 0.9 % Sodium Chloride Flush 3 ML SYRINGE IVFLUSH ×2 (08:34→17:17)
[2024-10-07] MEDS: Famotidine 20 MG TABLET PO ×2 (08:34→20:47)
[2024-10-07] MEDS: Budesonide DR 3 MG Capsule 9 MG PO (08:34)
[2024-10-07] MEDS: Metoclopramide HCl 5 MG TABLET PO ×3 (08:35→23:35)
--- NOTE | 2024-10-07 09:43 | MHC.CLN ---
F/U PO INTAKE SLIGHTLY IMPROVED FOLLOWS: 75%, 50%, 75%, 50% DIET RX: LOW FIBER-APPROPRIATE PT RECEIVING VANILLA ENSURE BID -PT TAKES SIPS THROUGHOUT THE DAY REVIEWED LABS AND WT-STABLE DISCUSSED WITH PHARMACY PT WITH EGG ALLERGY-DO NOT GIVE LIPIDS (CONTAINS EGG DERIVATIVES AND INGREDIENTS) PPN CONTINUES TO RUN AT 65ML/HR PROVIDES 796KCALS, 156G DEXTROSE, 66G PROTEIN PPN PROVIDES 60% ESTIMATED KCAL NEEDS, 97% PROTEIN NEEDS REPLETE LYTES NEEDED CONTINUE TO MONITOR PO INTAKE CLOSELY
--- NOTE | 2024-10-07 10:50 | P.PNIM_ITS ---
Subjective Subjective Date of Service: 10/07/24 Interval History: abd pain, ate some of a sandwich Physical Exam 2 Vital Signs: Vital Signs: Last Vital Signs Temp 97.3 F 10/07/24 07:46 Pulse 72 10/07/24 07:46 Resp 14 10/07/24 07:46 BP 111/67 10/07/24 07:46 Pulse Ox 97 10/07/24 07:46 O2 Del Method Room Air 10/07/24 07:46 BMI result Body Mass Index 16.6 Const: Other: General: no acute distress Nutritional Appearance: appears this and frail and underweight Orientation/consciousness: patient oriented x3 Neck Neck: Yes normal visual inspection Chest Chest palpation & inspection: normal inspection of the chest Resp Effort & Inspection: normal respiratory effort Auscultation: clear to auscultation bilaterally Cardio Palpation: normal PMI Rate: regular rate Rhythm: regular rhythm Heart sounds: S1 normal heart sound present, S2 normal heart sound present and no murmurs GI Palpation (GI): Soft to palpation, Tenderness to palpation present (GI) (Mild diffuse abdominal tenderness) and No hepatosplenomegaly present Auscultation: normal bowel sounds Objective Data Active Medications Albuterol Sulfate (Albuterol Sulfate 90 Mcg 8 Gm Inhaler) 2 puff INHALE Q6H PRN PRN Reason: Shortness Of Breath Budesonide (Budesonide Dr 3 Mg Capsule) 9 mg PO DAILY [facility] Last Admin: 10/07/24 08:34 Dose: 9 mg Documented By: MARCO Celecoxib (Celecoxib 100 Mg Capsule) 100 mg PO DAILY@0000 [facility] Last Admin: 10/06/24 23:48 Dose: 100 mg Documented By: BARBARA Dicyclomine HCl (Dicyclomine Hcl 10 Mg Capsule) 10 mg PO QIDACHS [facility] Last Admin: 10/07/24 08:32 Dose: 10 mg Documented By: MARCO Enoxaparin Sodium (Enoxaparin Sodium 40 Mg/0.4 Ml Syringe) 40 mg SUBCUT Q24H [facility] Last Admin: 10/06/24 18:35 Dose: 40 mg Documented By: MARCO Famotidine (Famotidine 20 Mg Tablet) 20 mg PO BID [facility] Last Admin: 10/07/24 08:34 Dose: 20 mg Documented By: MAROC Folic Acid (Folic Acid 1 Mg Tablet) 1 mg PO DAILY [facility] Last Admin: 10/07/24 08:32 Dose: 1 mg Documented By: MARCO Glucose (Glucose Gel 15 Gm Gel..Gram.) 15 gm PO Q15M PRN PRN Reason: per Hypoglycemia Standing Ord. Last Admin: 10/01/24 12:34 Dose: 15 gm Documented By: LESLIE Guaifenesin/Dextromethorphan (Guaifenesin Dm 200/20/10 Ml 10 Ml Syrup) 10 ml PO Q4H PRN PRN Reason: Cough Dextrose (D10) 250 mls @ 750 mls/hr IV Q15M PRN PRN Reason: per Hypoglycemia Standing Ord. Methotrexate 12.5 mg/ IV (Miscellaneous Supplies) 0.5 mls @ 0 mls/hr SUBCUT Q7D [facility] Last Admin: 10/04/24 16:23 Dose: 0.5 mls/hr Documented By: KRISTAN Co-signed By: ISAAC Nutrition (Parenteral) (Parenteral Nutrition) 1,560 mls @ 65 mls/hr IV .Q24H [facility]; Protocol Stop: 10/07/24 20:59 Last Admin: 10/06/24 21:20 Dose: 65 mls/hr Documented By: BARBARA Magnesium Hydroxide (Milk Of Magnesia 30 Ml Oral.Susp) 30 ml PO DAILY PRN PRN Reason: Constipation Magnesium Oxide (Magnesium Oxide 400 Mg Tablet) 200 mg PO DAILY [facility] Last Admin: 10/07/24 08:32 Dose: 200 mg Documented By: MARCO Melatonin (Melatonin 3 Mg Tablet) 6 mg PO BEDTIME PRN PRN Reason: Insomnia Metoclopramide HCl (Metoclopramide Hcl 5 Mg Tablet) 5 mg PO TID@0000,0900,1700 [facility] Last Admin: 10/07/24 08:35 Dose: 5 mg Documented By: MARCO Montelukast Sodium (Montelukast Sodium 10 Mg Tablet) 10 mg PO BEDTIME [facility] Last Admin: 10/06/24 21:20 Dose: 10 mg Documented By: BARBARA Ondansetron HCl (Ondansetron Hcl 4 Mg/2 Ml Vial) 4 mg IVPUSH Q8H PRN PRN Reason: Nausea and Vomiting Last Admin: 10/02/24 17:10 Dose: 4 mg Documented By: LESLIE Propranolol HCl (Propranolol Hcl 10 Mg Tablet) 10 mg PO BEDTIME PRN; Protocol PRN Reason: anxiety Last Admin: 10/05/24 15:22 Dose: 10 mg Documented By: KRISTAN Sodium Chloride (0.9 % Sodium Chloride Flush 3 Ml Syringe) 3 ml IVFLUSH QSHIFT [facility] Last Admin: 10/07/24 08:34 Dose: 3 ml Documented By: MARCO Labs 10/07/24 06:26 10/07/24 06:26 Labs: Laboratory Results - last 24 hr 10/01/24 10/06/24 10/06/24 05:16 10:55 17:36 MCV MCH MCHC RDW Plt Count MPV Absolute Nucleated RBC Nucleated RBC % (auto) Anion Gap Estim Creat Clear Calc Estimated GFR POC Glucose 91 115 Random Glucose Calcium Phosphorus Magnesium Total Bilirubin Direct Bilirubin AST ALT Alkaline Phosphatase Total Protein Albumin Calcitonin <2 10/07/24 10/07/24 05:15 06:26 MCV 83.7 MCH 27.3 MCHC 32.6 RDW 14.0 Plt Count 135 L MPV 11.3 Absolute Nucleated RBC 0.000 Nucleated RBC % (auto) 0.0 Anion Gap 11 L Estim Creat Clear Calc 66.3 Estimated GFR > 60 POC Glucose 106 Random Glucose 100 Calcium 8.0 L Phosphorus 3.8 Magnesium 1.9 Total Bilirubin 0.3 Direct Bilirubin 0.1 AST 75 H ALT 133 H Alkaline Phosphatase 59 Total Protein 4.8 L Albumin 2.7 L Calcitonin Assessment and Plan (1) Protein calorie malnutrition: Status: Acute (2) Adult failure to thrive: Status: Acute (3) Crohn's disease: Status: Acute Plan 74F PMH significant for?SLE, fibromyalgia, Crohn's disease, HTN, HLD, asthma, GERD, and migraines who presented to the ED at the recommendation of her mobile web application developer Dr. Blackburn for failure to thrive. Pt admitted to the hospital for treatment and further evaluation for failure to thrive in a patient with intractable diarrhea and inability to tolerate p.o. intake. Failure to thrive and moderate protein calorie malnutrition in setting of Crohn's disease postprandial intractable diarrhea, decrease p.o. intake, weight loss on Ange for Crohn's disease, had 2 doses only Imodium ATC and PRN for now - diarrhea improved Dicyclomine ATC Antiemetics, analgesics for pain management given iv methotrexate, continue budesonide, stop solumedrol Diet as tolerated with supplement GI input appreciated, Budesonide on discharge, fluids and diarrhea management Protein calorie malnutrition, moderate. underweight. Reports 42 lb weight loss since April supplement with ensure t.i.d., magic cup b.i.d. nutrition appreciated, started ppn 10/04/24, continue monitor intake Transaminitis Chronic, at baseline Likely secondary to Crohn's Asthma mild intermittent Not in acute exacerbation Continue home inhalers GERD PPI Anxiety Continue propranolol Full Code DVT Prophylaxis: Lovenox reason for continued hospitalization: malnourished, unable to get enough nutrition po Quality Stroke Does the patient have a stroke diagnosis?: No VTE Prior VTE?: No VTE Risk Level:: Medical - moderate - high VTE Device Contraindication: Treatment Not Indicated VTE Drug Contraindication: N/A - Med Ordered
[2024-10-07 11:41] LABS: Glucose, Whole Blood 101 mg/dL (60-115)
--- NOTE | 2024-10-07 13:45 | PC.NURSE ---
po intake for breakfast : pt stated that she feels full in am , didn't eat anything from her breakfast meal till 12:30 pm , she had 50 % of the cereal
--- NOTE | 2024-10-07 15:11 | MHC.CM.PN ---
EMR REVIEWED, PT FAILURE TO THRIVE D/T [place], WILL NEED TO STAY ON TPN THROUGH W/E, NO VNA/SNF'S WILLING TO ACCOMMODATE TPN/PPN, CM WILL CONT TO FOLLOW DC NEEDS.
[2024-10-07 17:46] LABS: Glucose, Whole Blood 96 mg/dL (60-115)
[2024-10-07] MEDS: Loperamide HCl 2 MG CAPSULE PO (18:32)
[2024-10-07] MEDS: Enoxaparin Sodium 40 MG/0.4 ML SYRINGE SUBCUT (18:32)
[2024-10-07] MEDS: Parenteral Nutrition 1,560 ML 65 ML IV (20:47)
[2024-10-07] MEDS: Montelukast Sodium 10 MG TABLET PO (20:47)
[2024-10-07] MEDS: Celecoxib 100 MG CAPSULE PO (23:34)
[2024-10-07] MEDS: carisoprodoL 350 MG TABLET PO (23:43)
[2024-10-08 05:54] VITALS: BMI 16.1
[2024-10-08 05:55] VITALS: BP 130/83; PULSE 77; RESP 18; TEMP 36.8; O2SAT 96
[2024-10-08 05:57] LABS: Glucose, Whole Blood 109 mg/dL (60-115)
[2024-10-08 06:50] LABS: Alanine Aminotransferase 112 U/L (0-31); Albumin Level 2.9 g/dL (3.5-5.0); Alkaline Phosphatase 69 U/L (39-117); Anion Gap 9 (12-20); Aspartate Amino Transferase 47 U/L (5-31); Bilirubin Total 0.4 mg/dL (0.0-1.0); Blood Urea Nitrogen 28 mg/dL (9-16); Carbon Dioxide 25 mmol/L (22-29); Chloride 106 mmol/L (96-108); Creatinine Clr Calc Pharmacy 64.5; Estimated Glomerular Filt Rate > 60; Glucose Random 100 mg/dL (60-115); Phosphorus 3.6 mg/dL (2.7-4.5); Potassium 4.4 mmol/L (3.3-5.1); Sodium 136 mmol/L (135-145); Total Protein 5.3 g/dL (6.5-8.0)
[2024-10-08 07:31] VITALS: BP 120/73; PULSE 78; RESP 20; TEMP 36.5; O2SAT 99
[2024-10-08] MEDS: Budesonide DR 3 MG Capsule 9 MG PO (08:48)
[2024-10-08] MEDS: Dicyclomine HCl 10 MG CAPSULE PO ×4 (08:48→20:07)
[2024-10-08] MEDS: Folic Acid 1 MG TABLET PO (08:48)
[2024-10-08] MEDS: Magnesium Oxide 400 MG TABLET 200 MG PO (08:49)
[2024-10-08] MEDS: ondansetron HCL 4 MG/2 ML VIAL IVPUSH (08:59)
[2024-10-08] MEDS: Loperamide HCl 2 MG CAPSULE PO (08:59)
--- NOTE | 2024-10-08 09:14 | P.PNIM_ITS ---
Subjective Subjective Date of Service: 10/08/24 Interval History: eating about 50% of meals, having some diarrhea again Physical Exam 2 Vital Signs: Vital Signs: Last Vital Signs Temp 97.7 F 10/08/24 07:31 Pulse 78 10/08/24 07:31 Resp 20 10/08/24 07:31 BP 120/73 10/08/24 07:31 Pulse Ox 99 10/08/24 07:31 O2 Del Method Room Air 10/08/24 07:31 BMI result Body Mass Index 16.1 Const: Other: General: no acute distress Nutritional Appearance: appears this and frail and underweight Orientation/consciousness: patient oriented x3 Neck Neck: Yes normal visual inspection Chest Chest palpation & inspection: normal inspection of the chest Resp Effort & Inspection: normal respiratory effort Auscultation: clear to auscultation bilaterally Cardio Palpation: normal PMI Rate: regular rate Rhythm: regular rhythm Heart sounds: S1 normal heart sound present, S2 normal heart sound present and no murmurs GI Palpation (GI): Soft to palpation, Tenderness to palpation present (GI) (Mild diffuse abdominal tenderness) and No hepatosplenomegaly present Auscultation: normal bowel sounds Objective Data Active Medications Albuterol Sulfate (Albuterol Sulfate 90 Mcg 8 Gm Inhaler) 2 puff INHALE Q6H PRN PRN Reason: Shortness Of Breath Budesonide (Budesonide Dr 3 Mg Capsule) 9 mg PO DAILY [facility] Last Admin: 10/08/24 08:48 Dose: 9 mg Documented By: MANJIT Carisoprodol (Carisoprodol 350 Mg Tablet) 350 mg PO BEDTIME [facility] Last Admin: 10/07/24 23:43 Dose: 350 mg Documented By: DEWEY Celecoxib (Celecoxib 100 Mg Capsule) 100 mg PO DAILY@0000 [facility] Last Admin: 10/07/24 23:34 Dose: 100 mg Documented By: DEWEY Dicyclomine HCl (Dicyclomine Hcl 10 Mg Capsule) 10 mg PO QIDACHS [facility] Last Admin: 10/08/24 08:48 Dose: 10 mg Documented By: MANJIT Enoxaparin Sodium (Enoxaparin Sodium 40 Mg/0.4 Ml Syringe) 40 mg SUBCUT Q24H [facility] Last Admin: 10/07/24 18:32 Dose: 40 mg Documented By: MARCO Famotidine (Famotidine 20 Mg Tablet) 20 mg PO BID [facility] Last Admin: 10/08/24 09:07 Dose: Not Given Documented By: MANJIT Non-Admin Reason: Patient Refused Folic Acid (Folic Acid 1 Mg Tablet) 1 mg PO DAILY [facility] Last Admin: 10/08/24 08:48 Dose: 1 mg Documented By: MANJIT Glucose (Glucose Gel 15 Gm Gel..Gram.) 15 gm PO Q15M PRN PRN Reason: per Hypoglycemia Standing Ord. Last Admin: 10/01/24 12:34 Dose: 15 gm Documented By: LESLIE Guaifenesin/Dextromethorphan (Guaifenesin Dm 200/20/10 Ml 10 Ml Syrup) 10 ml PO Q4H PRN PRN Reason: Cough Dextrose (D10) 250 mls @ 750 mls/hr IV Q15M PRN PRN Reason: per Hypoglycemia Standing Ord. Methotrexate 12.5 mg/ IV (Miscellaneous Supplies) 0.5 mls @ 0 mls/hr SUBCUT Q7D [facility] Last Admin: 10/04/24 16:23 Dose: 0.5 mls/hr Documented By: KRISTAN Co-signed By: ISAAC Nutrition (Parenteral) (Parenteral Nutrition) 1,560 mls @ 65 mls/hr IV .Q24H [facility]; Protocol Stop: 10/08/24 20:59 Last Admin: 10/07/24 20:47 Dose: 65 mls/hr Documented By: DEWEY Loperamide HCl (Loperamide Hcl 2 Mg Capsule) 2 mg PO Q4H PRN PRN Reason: Diarrhea Last Admin: 10/08/24 08:59 Dose: 2 mg Documented By: MANJIT Magnesium Hydroxide (Milk Of Magnesia 30 Ml Oral.Susp) 30 ml PO DAILY PRN PRN Reason: Constipation Magnesium Oxide (Magnesium Oxide 400 Mg Tablet) 200 mg PO DAILY [facility] Last Admin: 10/08/24 08:49 Dose: 200 mg Documented By: MANJIT Melatonin (Melatonin 3 Mg Tablet) 6 mg PO BEDTIME PRN PRN Reason: Insomnia Metoclopramide HCl (Metoclopramide Hcl 5 Mg Tablet) 5 mg PO TID@0000,0900,1700 [facility] Last Admin: 10/07/24 23:35 Dose: 5 mg Documented By: DEWEY Montelukast Sodium (Montelukast Sodium 10 Mg Tablet) 10 mg PO BEDTIME [facility] Last Admin: 10/07/24 20:47 Dose: 10 mg Documented By: DEWEY Non-Formulary Medication (Humira) 40 mg SUBCUT ONCE [facility] Ondansetron HCl (Ondansetron Hcl 4 Mg/2 Ml Vial) 4 mg IVPUSH Q8H PRN PRN Reason: Nausea and Vomiting Last Admin: 10/08/24 08:59 Dose: 4 mg Documented By: MANJIT Propranolol HCl (Propranolol Hcl 10 Mg Tablet) 10 mg PO BEDTIME PRN; Protocol PRN Reason: anxiety Last Admin: 10/05/24 15:22 Dose: 10 mg Documented By: KRISTAN Sodium Chloride (0.9 % Sodium Chloride Flush 3 Ml Syringe) 3 ml IVFLUSH QSHIFT [facility] Last Admin: 10/08/24 00:30 Dose: Not Given Documented By: DEWEY Non-Admin Reason: IV Running Labs 10/07/24 06:26 10/08/24 05:58 Labs: Laboratory Results - last 24 hr 10/07/24 10/07/24 10/08/24 11:28 17:41 05:49 Hold Purple Top Anion Gap Estim Creat Clear Calc Estimated GFR POC Glucose 101 96 109 Random Glucose Calcium Phosphorus Magnesium Total Bilirubin AST ALT Alkaline Phosphatase Total Protein Albumin 10/08/24 05:58 Hold Purple Top SEE NOTE Anion Gap 9 L Estim Creat Clear Calc 64.5 Estimated GFR > 60 POC Glucose Random Glucose 100 Calcium 8.0 L Phosphorus 3.6 Magnesium 2.0 Total Bilirubin 0.4 AST 47 H ALT 112 H Alkaline Phosphatase 69 Total Protein 5.3 L Albumin 2.9 L Assessment and Plan (1) Protein calorie malnutrition: Status: Acute (2) Adult failure to thrive: Status: Acute (3) Crohn's disease: Status: Acute Plan 74F PMH significant for?SLE, fibromyalgia, Crohn's disease, HTN, HLD, asthma, GERD, and migraines who presented to the ED at the recommendation of her speed reading teacher Dr. Blackburn for failure to thrive. Pt admitted to the hospital for treatment and further evaluation for failure to thrive in a patient with intractable diarrhea and inability to tolerate p.o. intake. Failure to thrive and moderate protein calorie malnutrition in setting of Crohn's disease postprandial intractable diarrhea, decrease p.o. intake, weight loss on Ange for Crohn's disease, had 2 doses only Imodium PRN Dicyclomine Antiemetics, analgesics for pain management given iv methotrexate, continue budesonide, stop solumedrol Diet as tolerated with supplement GI input appreciated, Budesonide on discharge, fluids and diarrhea management Protein calorie malnutrition, moderate. underweight. Reports 42 lb weight loss since April supplement with ensure t.i.d., magic cup b.i.d. nutrition appreciated, started ppn 10/04/24, continue monitor intake Transaminitis Chronic, at baseline Likely secondary to Crohn's Asthma mild intermittent Not in acute exacerbation Continue home inhalers GERD PPI Anxiety Continue propranolol Full Code DVT Prophylaxis: Lovenox reason for continued hospitalization: malnourished, monitoring po intake Quality Stroke Does the patient have a stroke diagnosis?: No VTE Prior VTE?: No VTE Risk Level:: Medical - moderate - high VTE Device Contraindication: Treatment Not Indicated VTE Drug Contraindication: N/A - Med Ordered
[2024-10-08] MEDS: Metoclopramide HCl 5 MG TABLET PO ×2 (09:38→16:53)
[2024-10-08] MEDS: 0.9 % Sodium Chloride Flush 3 ML SYRINGE IVFLUSH ×2 (09:38→23:00)
[2024-10-08 11:44] VITALS: BP 122/84; PULSE 82; TEMP 36.9; O2SAT 98
[2024-10-08 12:06] LABS: Glucose, Whole Blood 109 mg/dL (60-115)
[2024-10-08 15:44] VITALS: BP 120/64; PULSE 75; RESP 20; TEMP 37.1; O2SAT 99
[2024-10-08 17:03] LABS: IgA 248 mg/dL (70-320); IgG 884 mg/dL (600-1540); IgM 63 mg/dL (50-300)
[2024-10-08 18:10] LABS: Glucose, Whole Blood 91 mg/dL (60-115)
[2024-10-08] MEDS: Enoxaparin Sodium 40 MG/0.4 ML SYRINGE SUBCUT (18:51)
[2024-10-08 20:00] VITALS: BP 114/70; PULSE 80; RESP 18; TEMP 36.6; O2SAT 99
[2024-10-08] MEDS: Montelukast Sodium 10 MG TABLET PO (20:07)
[2024-10-08] MEDS: Famotidine 20 MG TABLET PO (20:07)
[2024-10-08] MEDS: Parenteral Nutrition 1,560 ML 65 ML IV (22:54)
[2024-10-08 23:49] VITALS: BP 99/69; PULSE 79; RESP 18; TEMP 36.8; O2SAT 99
[2024-10-09] MEDS: carisoprodoL 350 MG TABLET PO ×2 (00:18→23:47)
[2024-10-09] MEDS: Celecoxib 100 MG CAPSULE PO ×2 (00:18→23:48)
[2024-10-09 06:00] VITALS: BMI 16.6
[2024-10-09 06:01] LABS: Glucose, Whole Blood 107 mg/dL (60-115)
[2024-10-09 06:05] VITALS: BP 119/72; PULSE 75; RESP 18; TEMP 36.8; O2SAT 98
[2024-10-09] MEDS: Dicyclomine HCl 10 MG CAPSULE PO ×4 (06:44→21:04)
[2024-10-09 07:37] VITALS: BP 113/58; PULSE 66; RESP 20; TEMP 36.2; O2SAT 99
[2024-10-09 07:49] LABS: Alanine Aminotransferase 94 U/L (0-31); Albumin Level 2.9 g/dL (3.5-5.0); Alkaline Phosphatase 71 U/L (39-117); Anion Gap 9 (12-20); Aspartate Amino Transferase 44 U/L (5-31); Bilirubin Total 0.4 mg/dL (0.0-1.0); Blood Urea Nitrogen 21 mg/dL (9-16); Carbon Dioxide 27 mmol/L (22-29); Chloride 108 mmol/L (96-108); Creatinine Clr Calc Pharmacy 58.1; Estimated Glomerular Filt Rate > 60; Glucose Random 98 mg/dL (60-115); Magnesium 2.1 mg/dL (1.6-2.6); Phosphorus 3.4 mg/dL (2.7-4.5); Potassium 4.6 mmol/L (3.3-5.1); Sodium 139 mmol/L (135-145); Total Protein 5.1 g/dL (6.5-8.0)
[2024-10-09] MEDS: Budesonide DR 3 MG Capsule 9 MG PO (09:22)
[2024-10-09] MEDS: Folic Acid 1 MG TABLET PO (09:23)
[2024-10-09] MEDS: Magnesium Oxide 400 MG TABLET 200 MG PO (09:23)
[2024-10-09] MEDS: Famotidine 20 MG TABLET PO ×2 (09:23→21:04)
--- NOTE | 2024-10-09 09:37 | HO.PM.IMPN ---
Subjective Subjective Date of Service: 10/09/24 Interval History: eating about 50% of meals, having some diarrhea again but low volume Physical Exam Vital Signs: Vital Signs: Last Vital Signs Temp 97.1 F 10/09/24 07:37 Pulse 66 10/09/24 07:37 Resp 20 10/09/24 07:37 BP 113/58 L 10/09/24 07:37 Pulse Ox 99 10/09/24 07:37 O2 Del Method Room Air 10/09/24 07:37 BMI result Body Mass Index 16.6 Const: Other: General: no acute distress Nutritional Appearance: appears this and frail and underweight Orientation/consciousness: patient oriented x3 Neck Neck: Yes normal visual inspection Chest Chest palpation & inspection: normal inspection of the chest Resp Effort & Inspection: normal respiratory effort Auscultation: clear to auscultation bilaterally Cardio Palpation: normal PMI Rate: regular rate Rhythm: regular rhythm Heart sounds: S1 normal heart sound present, S2 normal heart sound present and no murmurs GI Palpation (GI): Soft to palpation, Tenderness to palpation present (GI) (Mild diffuse abdominal tenderness) and No hepatosplenomegaly present Auscultation: normal bowel sounds Objective Data Active Medications Albuterol Sulfate (Albuterol Sulfate 90 Mcg 8 Gm Inhaler) 2 puff INHALE Q6H PRN PRN Reason: Shortness Of Breath Budesonide (Budesonide Dr 3 Mg Capsule) 9 mg PO DAILY [facility] Last Admin: 10/09/24 09:22 Dose: 9 mg Documented By: MARGUERITE Carisoprodol (Carisoprodol 350 Mg Tablet) 350 mg PO BEDTIME [facility] Last Admin: 10/09/24 00:18 Dose: 350 mg Documented By: KLAUDIA Celecoxib (Celecoxib 100 Mg Capsule) 100 mg PO DAILY@0000 [facility] Last Admin: 10/09/24 00:18 Dose: 100 mg Documented By: KLAUDIA Dicyclomine HCl (Dicyclomine Hcl 10 Mg Capsule) 10 mg PO QIDACHS [facility] Last Admin: 10/09/24 06:44 Dose: 10 mg Documented By: KLAUDIA Enoxaparin Sodium (Enoxaparin Sodium 40 Mg/0.4 Ml Syringe) 40 mg SUBCUT Q24H [facility] Last Admin: 10/08/24 18:51 Dose: 40 mg Documented By: MANJIT Famotidine (Famotidine 20 Mg Tablet) 20 mg PO BID [facility] Last Admin: 10/09/24 09:23 Dose: 20 mg Documented By: MARGUERITE Folic Acid (Folic Acid 1 Mg Tablet) 1 mg PO DAILY [facility] Last Admin: 10/09/24 09:23 Dose: 1 mg Documented By: MARGUERITE Glucose (Glucose Gel 15 Gm Gel..Gram.) 15 gm PO Q15M PRN PRN Reason: per Hypoglycemia Standing Ord. Last Admin: 10/01/24 12:34 Dose: 15 gm Documented By: LESLIE Guaifenesin/Dextromethorphan (Guaifenesin Dm 200/20/10 Ml 10 Ml Syrup) 10 ml PO Q4H PRN PRN Reason: Cough Dextrose (D10) 250 mls @ 750 mls/hr IV Q15M PRN PRN Reason: per Hypoglycemia Standing Ord. Methotrexate 12.5 mg/ IV (Miscellaneous Supplies) 0.5 mls @ 0 mls/hr SUBCUT Q7D [facility] Last Admin: 10/04/24 16:23 Dose: 0.5 mls/hr Documented By: KRISTAN Co-signed By: ISAAC Nutrition (Parenteral) (Parenteral Nutrition) 1,560 mls @ 65 mls/hr IV .Q24H [facility]; Protocol Stop: 10/09/24 20:59 Last Admin: 10/08/24 22:54 Dose: 65 mls/hr Documented By: KLAUDIA Loperamide HCl (Loperamide Hcl 2 Mg Capsule) 2 mg PO Q4H PRN PRN Reason: Diarrhea Last Admin: 10/08/24 08:59 Dose: 2 mg Documented By: MANJIT Magnesium Hydroxide (Milk Of Magnesia 30 Ml Oral.Susp) 30 ml PO DAILY PRN PRN Reason: Constipation Magnesium Oxide (Magnesium Oxide 400 Mg Tablet) 200 mg PO DAILY [facility] Last Admin: 10/09/24 09:23 Dose: 200 mg Documented By: MARGUERITE Melatonin (Melatonin 3 Mg Tablet) 6 mg PO BEDTIME PRN PRN Reason: Insomnia Metoclopramide HCl (Metoclopramide Hcl 5 Mg Tablet) 5 mg PO TID@0000,0900,1700 [facility] Last Admin: 10/09/24 07:37 Dose: Not Given Documented By: KLAUDIA Non-Admin Reason: See Note Montelukast Sodium (Montelukast Sodium 10 Mg Tablet) 10 mg PO BEDTIME [facility] Last Admin: 10/08/24 20:07 Dose: 10 mg Documented By: KLAUDIA Non-Formulary Medication (Humira) 40 mg SUBCUT ONCE [facility] Ondansetron HCl (Ondansetron Hcl 4 Mg/2 Ml Vial) 4 mg IVPUSH Q8H PRN PRN Reason: Nausea and Vomiting Last Admin: 10/08/24 08:59 Dose: 4 mg Documented By: MANJIT Propranolol HCl (Propranolol Hcl 10 Mg Tablet) 10 mg PO BEDTIME PRN; Protocol PRN Reason: anxiety Last Admin: 10/05/24 15:22 Dose: 10 mg Documented By: KRISTAN Sodium Chloride (0.9 % Sodium Chloride Flush 3 Ml Syringe) 3 ml IVFLUSH QSHIFT [facility] Last Admin: 10/09/24 09:23 Dose: Not Given Documented By: MARGUERITE Non-Admin Reason: No Access Labs 10/07/24 06:26 10/09/24 06:49 Labs: Laboratory Results - last 24 hr 10/06/24 10/08/24 10/08/24 06:13 12:00 18:06 Hold Purple Top Anion Gap Estim Creat Clear Calc Estimated GFR POC Glucose 109 91 Random Glucose Calcium Phosphorus Magnesium Total Bilirubin AST ALT Alkaline Phosphatase Total Protein Albumin IgG Total 884 IgA Total 248 IgM 63 10/09/24 10/09/24 10/09/24 05:54 06:49 07:12 Hold Purple Top SEE NOTE Anion Gap 9 L Estim Creat Clear Calc 58.1 Estimated GFR > 60 POC Glucose 107 Random Glucose 98 Calcium 8.0 L Phosphorus 3.4 Magnesium 2.1 Total Bilirubin 0.4 AST 44 H ALT 94 H Alkaline Phosphatase 71 Total Protein 5.1 L Albumin 2.9 L IgG Total IgA Total IgM Assessment and Plan (1) Protein calorie malnutrition: Status: Acute (2) Adult failure to thrive: Status: Acute (3) Crohn's disease: Status: Acute Plan 74F PMH significant for?SLE, fibromyalgia, Crohn's disease, HTN, HLD, asthma, GERD, and migraines who presented to the ED at the recommendation of 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 Blackburn for failure to thrive. Pt admitted to the hospital for treatment and further evaluation for failure to thrive in a patient with intractable diarrhea and inability to tolerate p.o. intake. Failure to thrive and moderate protein calorie malnutrition in setting of Crohn's disease postprandial intractable diarrhea, decrease p.o. intake, weight loss on Ange for Crohn's disease, recently started Imodium PRN Dicyclomine Antiemetics, analgesics for pain management given iv methotrexate, continue budesonide, stopped solumedrol Diet as tolerated with supplement GI input appreciated, Budesonide on discharge, fluids and diarrhea management Protein calorie malnutrition, moderate. underweight. Reports 42 lb weight loss since April supplement with ensure t.i.d., magic cup b.i.d. nutrition appreciated, started ppn 10/04/24, continue monitor intake - has imrpoved, if stable ?dc ppn and dc home 10/10/24 Transaminitis Chronic, at baseline Likely secondary to Crohn's Asthma mild intermittent Not in acute exacerbation Continue home inhalers GERD PPI Anxiety Continue propranolol Full Code DVT Prophylaxis: Lovenox reason for continued hospitalization: malnourished, monitoring po intake Quality Stroke Does the patient have a stroke diagnosis?: No VTE Prior VTE?: No VTE Risk Level:: Medical - moderate - high VTE Device Contraindication: Treatment Not Indicated VTE Drug Contraindication: N/A - Med Ordered
[2024-10-09] MEDS: Metoclopramide HCl 5 MG TABLET PO ×3 (10:59→23:48)
[2024-10-09 12:00] VITALS: BP 131/68; PULSE 80; RESP 20; TEMP 37.1; O2SAT 99
[2024-10-09 12:11] LABS: Glucose, Whole Blood 104 mg/dL (60-115)
[2024-10-09 15:28] VITALS: BP 123/68; PULSE 84; RESP 18; TEMP 36.8; O2SAT 100
[2024-10-09 17:54] LABS: Glucose, Whole Blood 103 mg/dL (60-115)
[2024-10-09] MEDS: Enoxaparin Sodium 40 MG/0.4 ML SYRINGE SUBCUT (18:14)
[2024-10-09] MEDS: Loperamide HCl 2 MG CAPSULE PO (18:17)
[2024-10-09 20:08] VITALS: BP 132/63; PULSE 92; RESP 15; TEMP 36.3; O2SAT 95
[2024-10-09] MEDS: Parenteral Nutrition 1,560 ML 65 ML IV (21:00)
[2024-10-09] MEDS: Montelukast Sodium 10 MG TABLET PO (21:04)
[2024-10-09 23:48] VITALS: BP 130/75; PULSE 74; RESP 15; TEMP 36.7; O2SAT 92
[2024-10-09] MEDS: 0.9 % Sodium Chloride Flush 3 ML SYRINGE IVFLUSH (23:49)
[2024-10-10 00:16] LABS: Glucose, Whole Blood 83 mg/dL (60-115)
[2024-10-10 03:41] VITALS: BP 108/71; PULSE 75; RESP 17; TEMP 36.2; O2SAT 98
[2024-10-10 05:50] VITALS: BMI 16.1
[2024-10-10 06:04] LABS: Glucose, Whole Blood 87 mg/dL (60-115)
[2024-10-10 06:39] LABS: Alanine Aminotransferase 96 U/L (0-31); Albumin Level 3.3 g/dL (3.5-5.0); Alkaline Phosphatase 81 U/L (39-117); Anion Gap 9 (12-20); Aspartate Amino Transferase 42 U/L (5-31); Bilirubin Total 0.3 mg/dL (0.0-1.0); Blood Urea Nitrogen 20 mg/dL (9-16); Calcium 8.3 mg/dL (8.4-10.2); Carbon Dioxide 25 mmol/L (22-29); Chloride 109 mmol/L (96-108); Creatinine Clr Calc Pharmacy 55.5; Estimated Glomerular Filt Rate > 60; Glucose Random 81 mg/dL (60-115); Phosphorus 3.4 mg/dL (2.7-4.5); Potassium 4.2 mmol/L (3.3-5.1); Sodium 139 mmol/L (135-145); Total Protein 5.7 g/dL (6.5-8.0)
[2024-10-10 07:10] VITALS: BP 101/59; PULSE 69; RESP 16; TEMP 36.1; O2SAT 99
[2024-10-10] MEDS: Magnesium Oxide 400 MG TABLET 200 MG PO (08:36)
[2024-10-10] MEDS: Dicyclomine HCl 10 MG CAPSULE PO ×2 (08:36→12:13)
[2024-10-10] MEDS: Metoclopramide HCl 5 MG TABLET PO (08:36)
[2024-10-10] MEDS: Famotidine 20 MG TABLET PO (08:36)
[2024-10-10] MEDS: Budesonide DR 3 MG Capsule 9 MG PO (08:36)
[2024-10-10] MEDS: Folic Acid 1 MG TABLET PO (08:37)
--- NOTE | 2024-10-10 08:55 | P.DS_ITS ---
DS: Providers Provider Date of Service: 10/10/24 Date of admission: 09/30/24 18:27 Date of discharge: 10/10/24 Primary care physician: Parvez Altamirano MD Consults: 09/30/24 18:37 Consult to Gastroenterology Routine Consulting Provider: Fern Blackburn Reason for consultation: Intractable diarrhea, hx of Chrohn's, FTT DS: Diagnosis Discharge Diagnosis (1) Protein calorie malnutrition: Status: Acute (2) Adult failure to thrive: Status: Acute (3) Crohn's disease: Status: Acute DS: Summary Hospital Course Hospital Course: from initial hpi: 74-year-old female with a PMH significant for?SLE, fibromyalgia, Crohn's disease, HTN, HLD, asthma, GERD, and migraines who presents to the ED at the recommendation of 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 Blackburn for failure to thrive. Patient has been experiencing intractable diarrhea, inability to tolerate p.o. intake, and recent weight loss. Patient has been experiencing GI issues since April, including nausea, vomiting, diarrhea, abdominal pain, and 42 lb weight loss. Was recently diagnosed with Crohn's disease and started on Humira on 08/11/[address] Blackburn. Patient reports some relief in GI symptoms, but they returned 2-1/2 weeks ago when she was diagnosed with COVID. Has lost sense of taste and smell. Continues to occasionally experience nonproductive cough, mostly at night. Patient reports currently is only able to eat a ?tiny? amount of food at a time, though even this often results in intractable diarrhea. Experiences intermittent diffuse abdominal pain, worsened during bouts of diarrhea. Denies any recent nausea or vomiting. No chest pain/pressure, palpitations. Denies fever, chills. Denies shortness or breath or difficulty breathing. In the ED pt with elevated HR up to 100, vitals otherwise stable and WNL. Patient tested positive for COVID, although other labs grossly unremarkable and around baseline for patient. No leukocytosis. Stable H&H. No significant electrolyte abnormalities. Renal function baseline. Mild transaminitis of AST 53 and ALT 86, around baseline. Ammonia 35. Troponin 3.3. BNP 20. CXR showed no active disease. Pt was treated with Compazine and IVF. Pt will be admitted to the hospital for treatment and further evaluation for failure to thrive in a patient with intractable diarrhea and inability to tolerate p.o. intake. hospital course: Patient was admitted failure to thrive and moderate protein calorie malnutrition in the setting of Crohn's disease. She was treated with Bentyl, Imodium as needed, antiemetics, analgesics, Humira, methotrexate, budesonide. She was seen by nutrition felt caloric intake was insufficient and patient was put on peripheral parenteral nutrition. Though diet improving and diarrhea better controlled patient is still would benefit from continuing TPN while caloric intake and weight increases as outpatient. For mild intermittent asthma she remained stable. For anxiety was continued on propranolol. For GERD continued on PPI. Patient will be discharged home. She should follow up with Gastroenterology. Time Attestation Discharge Coordination Time (in mins): 33 Quality: Safe Use of Opioids Does Pt have an Active Cancer Diagnosis on the Problem List?: No Quality: Stroke Does the patient have a stroke diagnosis?: No Physical Exam Vital Signs: Vital Signs: Last Vital Signs Temp 96.9 F 10/10/24 07:10 Pulse 69 10/10/24 07:10 Resp 16 10/10/24 07:10 BP 101/59 L 10/10/24 07:10 Pulse Ox 99 10/10/24 07:10 O2 Del Method Room Air 10/10/24 07:10 O2 Flow Rate 2 10/09/24 20:08 BMI result Body Mass Index 16.1 Const: Other: General: no acute distress Nutritional Appearance: appears this and frail and underweight Orientation/consciousness: patient oriented x3 Neck Neck: Yes normal visual inspection Chest Chest palpation & inspection: normal inspection of the chest Resp Effort & Inspection: normal respiratory effort Auscultation: clear to auscultation bilaterally Cardio Palpation: normal PMI Rate: regular rate Rhythm: regular rhythm Heart sounds: S1 normal heart sound present, S2 normal heart sound present and no murmurs GI Palpation (GI): Soft to palpation, Tenderness to palpation present (GI) (Mild diffuse abdominal tenderness) and No hepatosplenomegaly present Auscultation: normal bowel sounds DS: Data Data Completed and Pending Completed studies during hospitalization [Text1]: Procedures Excision of Duodenum, Via Natural or Artificial Opening Endoscopic, Diagnostic (06/03/24) Excision of Left Large Intestine, Via Natural or Artificial Opening Endoscopic, Diagnostic (06/03/24) Excision of Right Large Intestine, Via Natural or Artificial Opening Endoscopic, Diagnostic (06/03/24) Excision of Stomach, Pylorus, Via Natural or Artificial Opening Endoscopic, Diagnostic (06/03/24) Excision of Transverse Colon, Via Natural or Artificial Opening Endoscopic, Diagnostic (06/03/24) Labs on day of discharge: Laboratory Results - last 24 hr 10/09/24 10/09/24 10/10/24 12:06 17:49 00:11 Hold Purple Top Sodium Potassium Chloride Carbon Dioxide Anion Gap BUN Creatinine Estim Creat Clear Calc Estimated GFR POC Glucose 104 103 83 Random Glucose Calcium Phosphorus Magnesium Total Bilirubin AST ALT Alkaline Phosphatase Total Protein Albumin 10/10/24 10/10/24 05:59 06:14 Hold Purple Top SEE NOTE Sodium 139 Potassium 4.2 Chloride 109 H Carbon Dioxide 25 Anion Gap 9 L BUN 20 H Creatinine 0.57 Estim Creat Clear Calc 55.5 Estimated GFR > 60 POC Glucose 87 Random Glucose 81 Calcium 8.3 L Phosphorus 3.4 Magnesium 2.0 Total Bilirubin 0.3 AST 42 H ALT 96 H Alkaline Phosphatase 81 Total Protein 5.7 L Albumin 3.3 L Discharge Plan Discharge Anticipated Discharge Date/Time: 10/10/24 08:52 Patient Disposition: Home, Self-Care Discharge Diagnosis: crohns, malnutrition Referrals: Parvez Benedict MD [Primary Care Provider] - 1 Week Fern Blackburn MD [Physician] - 1 Week Discharge Medications: New dicyclomine 10 mg Capsule 10 mg PO QIDACHS Qty: 270 0RF famotidine 20 mg Tablet 20 mg PO BID Qty: 180 0RF loperamide 2 mg Capsule 2 mg PO Q4H PRN (Reason: Diarrhea) Qty: 180 0RF folic acid 1 mg Tablet 1 mg PO DAILY Qty: 90 0RF Continued promethazine 25 mg tablet 25 mg PO Q8H PRN (Reason: nausea and vomiting) 30 Days Qty: 60 1RF budesonide 3 mg capsule,delayed,extend.release 9 mg PO QAM 30 Days Qty: 90 2RF methotrexate (PF) 12.5 mg/0.25 mL auto-injector 12.5 mg subcut QWEEK 30 Days Qty: 1.25 2RF carisoprodol 350 mg tablet 350 mg PO BEDTIME Patient Comments: takes at midnight 0000 Rx Instructions: takes at 0000 omeprazole 20 mg capsule,delayed release(DR/EC) 20 mg PO BID Rx Instructions: TAKES AT 0630 AND 2100 montelukast 10 mg tablet 10 mg PO BEDTIME albuterol sulfate 90 mcg/actuation Hfa Aerosol Inhaler 2 puff INHALATION Q6H PRN (Reason: Shortness Of Breath) propranolol 10 mg tablet 10 mg PO NEEDED PRN (Reason: anxiety) Rx Instructions: TAKES ONLY NEEDED FOR ANXIETY cyclosporine [Restasis] 0.05 % dropperette 1 drp ophthalmic (eye) BID Rx Instructions: TAKES AT 0900 AND 2100 melatonin 10 mg Tablet 10 mg PO BEDTIME prednisone 10 mg tablet See Taper PO DAILY Taper: Prednisone 30 mg daily for 2 Days and 0 Hour 20 mg daily for 2 Days and 0 Hour 10 mg daily for 2 Days and 0 Hour celecoxib 100 mg capsule 100 mg PO BEDTIME Rx Instructions: takes at 0000 adalimumab-adaz 40 mg/0.4 mL pen injector 40 mg subcut Q2W metoclopramide HCl 5 mg Tablet 5 mg PO TID Rx Instructions: takes at 0900, 1700, 0000 magnesium oxide 250 mg magnesium tablet 250 mg PO DAILY Diet: Advance to usual diet Activity on Discharge: As tolerated Stand Alone Forms: Patient Portal Discharge page Print Language: Malagasy Other Ambulatory Orders: Complete Blood Count Auto Diff (Stat) Timeframe: 20241004 Facility: [facility] - Location: Laboratory Ordered By: Fern Blackburn Comprehensive Met. Panel (Stat) Timeframe: 20241004 Facility: [facility] - Location: Laboratory Ordered By: Fern Blackburn Care Plan Goals: recovery, weight gain Health Concerns: crohns malnutrition Plan of Treatment: ensures, diet supplements, imodium prn, follow up with gi continue TPN, as diet and weight increases can aim to discontinue Assessment: see above
--- NOTE | 2024-10-10 09:25 | MHC.CM.PN ---
EMR REVIEWED, CM MET W/PT TO DISCUSS DISPO, PT REPORTS SHE WOULD LIKE TO TRY TO LEARN THE TPN ADMIN AND HER DTR VIVIENNE HAMPTONLIZ [phone] WILL BE IN TODAY SHE IS NOT WORKING, [facility] WILL CHECK OOP COST FOR PT AND WILL CONTACT VIVIENNE TO ARRANGE TIME TO MEET FOR TEACH, PICC LINE ORDERED AND ANTIC PT WOULD BE ABLE TO DC BY TOMORROW.
--- NOTE | 2024-10-10 10:14 | MHC.CLN ---
F/U CONTINUES WITH VARIABLE INTAKE, 0-75%. DIET RX: LOW FIBER-APPROPRIATE PT RECEIVING VANILLA ENSURE TID. REVIEWED LABS AND WT-STABLE. COMMUNICATED WITH PHARMACY. PT WITH EGG ALLERGY-DO NOT GIVE LIPIDS (CONTAINS EGG DERIVATIVES AND INGREDIENTS). PPN CONTINUES TO RUN AT 65ML/HR PROVIDES 796KCALS, 156G DEXTROSE, 66G PROTEIN. PPN PROVIDES 60% ESTIMATED KCAL NEEDS, 97% PROTEIN NEEDS. REPLETE LYTES NEEDED. CONTINUE TO MONITOR PO INTAKE CLOSELY. PLAN IS FOR PICC LINE TODAY AND TO DISCHARGE HOME TOMORROW WITH TPN. RECOMMEND TPN AT 55 ML PER HOUR; 66 G PROTEIN; 198 G DEXTROSE; 937 KCALS. CONTINUE TO FOLLOW PO INTAKE AND ADJUST PARENTERAL NUTRITION NEEDED.
[2024-10-10 11:14] VITALS: BP 110/63; PULSE 82; RESP 16; TEMP 36.6; O2SAT 99
[2024-10-10 11:29] LABS: Glucose, Whole Blood 86 mg/dL (60-115)
[2024-10-10 11:57] LABS: Prot Elec - Albumin 2.8 g/dL (3.8-4.8); Prot Elec - Alpha1 0.2 g/dL (0.2-0.3); Prot Elec - Alpha2 0.5 g/dL (0.5-0.9); Prot Elec - Beta 1 0.3 g/dL (0.4-0.6); Prot Elec - Beta 2 0.2 g/dL (0.2-0.5); Prot Elec - Gamma 0.9 g/dL (0.8-1.7); Prot Elec - Total Protein 4.9 g/dL (6.1-8.1)
--- NOTE | 2024-10-10 13:14 | MHC.CM.PN ---
PT MEDICALLY CLEARED FOR DC HOME W/[facility] FOR PPN, [facility] REPORTS PT'S DTR DID VERY WELL AND PLANS ON ADMINISTERING PT'S PPN NATHAN CAMPOS CARE RN FOR SOC TOMORROW 10/11, PT DOWN FOR PICC LINE PLACEMENT AT TIME OF THIS NOTE, FAMILY WILL TRANSPORT.
--- NOTE | 2024-10-10 14:30 | HO.PICC ---
[facility] Diagnosis: F[facility]/crohns Indication: TPN Pertinent Labs: reviewed Technique: Following informed consent including risks, benefits and alternatives and using sterile technique including cap and mask, sterile gown, glove and drape, the right arm was prepped and draped in the usual sterile fashion of full barrier technique with CHG. Following completion of [place] Protocol the skin and soft tissues were anesthetized with 1% Lidocaine plain. Using ultrasound guidance, right brachial vein access was obtained. Over an 0.018 wire through peel-away sheath, a 5 FR double lumen PASV PICC line was positioned. Catheter length is 41cm internal length, 0cm external length, for a total trimmed length of 41cm. The procedure was performed in 272. Tip verification was performed by Yael Javed with Sherlock 3CG. Tip located in SVC. Ultrasound was used to document vein patency and for needle entry. A formal ultrasound picture and cardiac rhythm strip was recorded. [employer] has released the line for use and it is currently dressed with a StatLock, Tegaderm, and CHG disc. Verification has been performed for blood return and line patency. Arm Circumference: 21cm Equipment: Wrike POWERPICC SOLO catheter with sherlock 3CG Catheter Type: 5FR double lumen PASV Lot #: [id number]
[2024-10-10] MEDS: Loperamide HCl 2 MG CAPSULE PO (15:05)
[2024-10-10 15:38] VITALS: BP 136/86; PULSE 80; RESP 17; TEMP 36.4; O2SAT 100
[2024-10-11 14:08] LABS: Adalimumab Drug Level 18.4 mcg/mL; Anti-Adalimumab Antibody 16 AU (<10)
== END 2024-10-10 16:38 | disposition home or self-care (01) | DRG 385 ==
LOC: HO.ED 17:52 → HO.EDOVER 19:01 → HO.IMC 10-01 08:03
PROVIDERS: Internal Medicine Gastroenterology; Physician Assistant; Student in an Organized Health Care Education/Training Program; Admitting Provider Student in an Organized Health Care Education/Training Program; Emergency Provider Emergency Medicine; PCP Family Medicine; Visit Provider Internal Medicine
DX: K50.90 Crohn's disease, unspecified, without complications (principal); U07.1 COVID-19; Z68.1 Body mass index [BMI] 19.9 or less, adult; E44.0 Moderate protein-calorie malnutrition; M32.9 Systemic lupus erythematosus, unspecified; K52.9 Noninfective gastroenteritis and colitis, unspecified; K21.9 Gastro-esophageal reflux disease without esophagitis; E78.5 Hyperlipidemia, unspecified; J45.20 Mild intermittent asthma, uncomplicated; F41.9 Anxiety disorder, unspecified; E86.0 Dehydration; R62.7 Adult failure to thrive; M79.7 Fibromyalgia; Z79.52 Long term (current) use of systemic steroids; Z79.620 Long term (current) use of immunosuppressive biologic; Z79.899 Other long term (current) drug therapy
CPT/HCPCS: 0241U; 36415; 36573; 71046; 80048; 80053; 80076; 80145; 81001; 82040; 82140; 82248; 82308; 82784; 82785; 82941; 82947; 83520; 83690; 83735; 83880; 84100; 84134; 84165; 84307; 84478; 84484; 84586; 85025; 85027; 85610; 86140; 87015; 87207; 87493; 87507; 89055; 93005; 99285; C1751; J0209; J0737; J1650; J2405; J2919; J7120

== ENCOUNTER → 2024-09-30 13:22 | Outpatient (BNV) | payer OTHER, SELFPAY | PROVIDERS: Admitting Provider Student in an Organized Health Care Education/Training Program; Emergency Provider Emergency Medicine; PCP Family Medicine; Visit Provider Internal Medicine Cardiovascular Disease | DX: E86.0 Dehydration (principal) | CPT/HCPCS: 93010 ==

== ENCOUNTER → 2024-09-30 13:22 | Outpatient (BNV) | payer OTHER, SELFPAY | PROVIDERS: PCP Family Medicine; Visit Provider Radiology Diagnostic Radiology | DX: R05.9 Cough, unspecified (principal) | CPT/HCPCS: 71046 ==

== ENCOUNTER → 2024-09-30 18:27 | Outpatient (BNV) | payer OTHER, SELFPAY | PROVIDERS: Admitting Provider Student in an Organized Health Care Education/Training Program; Emergency Provider Emergency Medicine; PCP Family Medicine; Visit Provider Student in an Organized Health Care Education/Training Program | DX: E46 Unspecified protein-calorie malnutrition (principal); R62.7 Adult failure to thrive; K50.90 Crohn's disease, unspecified, without complications | CPT/HCPCS: 99223; 99232; 99239 ==

== ENCOUNTER → 2024-09-30 18:27 | Outpatient (BNV) | payer OTHER, SELFPAY | PROVIDERS: Admitting Provider Student in an Organized Health Care Education/Training Program; Emergency Provider Emergency Medicine; PCP Family Medicine; Visit Provider Internal Medicine Gastroenterology | DX: K52.9 Noninfective gastroenteritis and colitis, unspecified (principal); R62.7 Adult failure to thrive | CPT/HCPCS: 99222; 99232 ==

== ENCOUNTER 2024-10-18 14:09 | Outpatient (AMB) | payer OTHER, SELFPAY ==
--- NOTE | 2024-10-18 14:13 | A.OFFVIS_ITS ---
Vital Signs 10/18/24 14:17 Height 5 ft 3 in Weight 94 lb 12.78 oz BMI 16.8 BP 139/71 Blood Pressure Location Lt brachial Position Sitting Pulse 76 Intake Visit Reasons: hospital follow up Intake Note: Alexandra presents in the office as a follow up ED. CC: She has not had a BM in 4-5 days. She just has usual pains that she states it could be from not being able to have a BM. [employer] Required: No Allergies levofloxacin (From LEVAQUIN) Allergy (Severe, Verified 04/10/25 15:39) Severe itching acetaminophen (From TYLENOL) Allergy (Intermediate, Verified 04/10/25 15:39) Itching epinephrine (EPINEPHRINE) Allergy (Intermediate, Verified 04/10/25 15:39) Tachycardia Penicillins (PENICILLINS) Allergy (Intermediate, Verified 04/10/25 15:39) Itching and hives diclofenac (DICLOFENAC) Allergy (Unknown, Verified 04/10/25 15:39) Hives meperidine (Demerol) Allergy (Unknown, Verified 04/10/25 15:39) Rash penicillin V Allergy (Unknown, Verified 04/10/25 15:39) Rash procaine (From NOVOCAIN) Allergy (Unknown, Verified 04/10/25 15:39) Unknown feathers Allergy (Verified 04/10/25 15:39) Itching wool Allergy (Verified 04/10/25 15:39) Itching Sulfa (Sulfonamide Antibiotics) (SULFA (SULFONAMIDE ANTIBIOTICS)) Adverse Reaction (Intermediate, Verified 04/10/25 15:39) Nausea doxycycline Adverse Reaction (Verified 04/10/25 15:39) Stomach Upset Medication List - Last Reconciled 10/18/24 by Fern Blackburn MD adalimumab-adaz 40 mg subcut Q2W albuterol sulfate 90 mcg/actuation 2 puffs inhalation Q6H PRN budesonide DR-ER 9 mg (3 x 3 mg) PO QAM 30 days carisoprodol 350 mg PO BEDTIME celecoxib 100 mg PO BEDTIME cyclosporine 0.05% (Restasis) 1 drp ophthalmic (eye) BID dicyclomine 10 mg PO QIDACHS folic acid 1 mg PO DAILY magnesium oxide 250 mg PO DAILY melatonin 10 mg PO BEDTIME methotrexate (PF) 12.5 mg (0.25 mL) subcut QWEEK 30 days metoclopramide HCl 5 mg PO TID montelukast 10 mg PO BEDTIME omeprazole 20 mg PO BID ondansetron mg PO prednisone See Taper mg PO DAILY promethazine 25 mg PO Q8H PRN 30 days propranolol 10 mg PO NEEDED PRN onuiyp-iph-iwj-[id number]-pscdz-lrnqyy 35-20-5 mEq/20 mL (TPN Electrolytes) mL IV HPI HPI hospital follow up: Details: GI clinic visit for this 74 year old female with lupus, HTN, HLD, MVP with valve calcifiation, fibromyalgia, asthma, GERD, and migraine HAs for follow-up of abdominal pain, nausea and diarrhea. Pt was hospitalized from 09/30 to 10/10/2024 with diarrhea, decreased p.o. intake, weight loss and failure to thrive Hospital course: Patient was admitted failure to thrive and moderate protein calorie malnutrition in the setting of Crohn's disease. She was treated with Bentyl, Imodium as needed, antiemetics, analgesics, Humira, methotrexate, budesonide. She was seen by nutrition felt caloric intake was insufficient and patient was put on peripheral parenteral nutrition. Though diet improving and diarrhea better controlled patient is still would bene fit from continuing TPN while caloric intake and weight increases as outpatient. For mild intermittent asthma she remained stable. For anxiety was continued on propranolol. For GERD continued on PPI. Patient was discharged home on Home TPN TODAY'S VISIT: Pt is accompanied by her daughter, Juliane CC: She has not had a BM in 4-5 days. She just has usual pains that she states it could be from not being able to have a BM. Appetite is good - always hungry. Feels stomach fills up fast. Taste buds are not recovered - thinks she may have long COVID Fills 2 small plates - 4 small pancakes for breakfast, Burger (without the bun) and georgian fries Taking approx 600 to 800 cals a day Takes nausea pills 1-2 times a day. Sleeping better and focus is coming back On Home TPN 1560 ml daily. Having constipation - last BM was 4-5 days ago and was soft. Stopped Loperamide Is able to walk without the cane Unable to cllimb stairs - notes proximal muscle weakness PAST VISITS: Patient cc: nauseas, burning sensation on esophagus, last Thursday she was with diarrhea and vomit, eating in small amount due she get sick with food. Had a relapse on 08/08 with projectile vomiting and diarrhea x hours Had 6-7 BMs and had 1 BM yesterday Gradually improved over the next few days Eating small meals - everything hurts - burning in her intestines She was freezing towards the end [address] exhausted towards the end Has costochondritis Normal BM hurts Complains of mouth sores for years - thought she had nutritional deficiency Pt states diarrhea has resolved and has been constipated x 3 weeks Appetite is very good always hungry and taking small meals. Appetite and taste is coming back Has gained 1 lb over the last week (was 98 lbs last week) Had to use a cane for a while since she was feeling dizzy Patient can have a constant throat irritation (? post nasal drip) and denies heartburn, dysphagia. Takes a nausea pill once a day Notes abdominal soreness in the upper abdomen/intestines In the past she took food and took Ibuprofen after meals to help with abdominal pain and had stopped taking it. She would like to resume - since she does not want to take narcotics. Has a BM 2-3 times a day with marble like stools - plans to start taking colace. Denies recent black stools or rectal bleeding. Has developed hemorrhoids after having diarrhea recently (denies bleeding) Muscles in the back are always hurting and its painful to get up She was taking Ibuprofen 200 mg (two tab at bedtime) for the past several years. Stopped Ibuprofen since her hospitalization and she would like to resume - prescribed Celecoxib (pt is allergic to Diclofenac) Patient has MVP (valve is calcified now) and asthma and denies loud snoring or sleep apnea Denies being on chronic anticoagulation. Patient denies known family history of colon polyps, colon cancer or other GI malignancies. PAST VISITS: Patient cc: abdominal discomfort, constipation with occasional dizziness. LABS IN [facility] : Reviewed - celiac serologies were normal, IBD serologies were positive for Crohn's disease Elevated chromogranin A of 505 (can be increased with PPI use) Normal urine 5HIAA CRP 1.03, elevated transaminases IMAGING STUDIES: Reviewed 06/03/[address] SCAN and 06/26/24 MRCP ENDOSCOPIC STUDIES: 06/06/24 EGD AND COLON WERE PERFORMED BY DR HA: Impression: 1. Normal esophagus 2. Abhay erosions (biopsy) 3. Gastric polyps 3. Normal duodenal (biopsy) 4. Normal colon and T.I mucosa (biopsy) 5. One polyp removed from the colon 6. Internal and external hemorrhoids Recommendations:?? * No obvious mucosal abnormality to explain on going diarrhea. * Follow-up path results * Avoid NSAIDs * Poor prep in T.C. Repeat colonoscopy within 1-2 years if pt has not had a high quality colonoscopy within the last 5 years. * Labs for functional NET pending BIOPSIES SHOWED: A. Duodenum, biopsy: Chronic active duodenitis with moderate to marked villous blunting, surface erosion and increased intraepithelial lymphocytes (see comment). B. Stomach, random, biopsy: Gastric antral mucosa with mild chronic inactive gastritis and increased intraepithelial lymphocytes; negative for Helicobacter pylori, intestinal metaplasia and dysplasia (see comment). C. Colon, hepatic flexure, polypectomy: Tubular adenoma; negative for high-grade dysplasia. D. Colon, right side, biopsy: Colonic mucosa within normal limits; negative for active, chronic or microscopic colitis. E. Colon, left side, biopsy: Colonic mucosa within normal limits; negative for active, chronic or microscopic colitis. COMMENT (A&B): The histologic findings raise the possibility of celiac disease but cannot completely exclude infection, drug/medication effect, inflammatory bowel disease, lymphocytic gastritis, and non-specific gastritis. Clinical correlation is advised PAST GI HISTORY BY REVIEW OF MEDICAL RECORDS: 05/16/24 PT [place] [facility] for consult: Abdominal pain, nausea and diarrhea 73 YF with lupus, HTN, HLD, fibromyalgia, asthma, GERD, and migraines who seen at [facility] [place] with?nausea, diarrhea, and abdominal x5-6 days. Pt reported she thought she was experiencing a dental implant infection secondary to upper right jaw pain and swelling on 05/06/24. She saw her dentist and was seen in urgent care and was started on doxycycline. Pt noted intractable nausea, non-bloody diarrhea, and abdominal pain, as well as altered taste 1-2 days after she started taking doxycycline. Pt reported diarrhea episodes every half hour, and was unable to tolerate p.o. intake despite stopping the doxycycline on 05/09 or 05/10. She felt weak and tired and denied vomiting or significant dry heaving, chest pain/pressure, palpitations. No fever, chills. Pt reports wt loss of 4 lbs over the past week.. Per pt, her PCP had stool samples tested and which came back positive for occult blood. Pt came to [facility] [place] since she felt lightheaded, particularly weak, and had some SOB. Last episode of diarrhea earlier this morning. Of note, patient reports has been chronically taking ibuprofen 400 mg b.i.d. for many years. Follows with Dr. Rivero in Gastroenterology, and reports EGD 2 years ago that was negative for gastric ulcer, but did find a ?dent? in her stomach. Patient also reports she often gets hypoglycemic if she does not eat every few hours. Pt denies smoking or ETOH abuse. Pt is , lives with her and has 1 daughter. In the ED pt's vitals overall stable and WNL Labs were significant for VBG pH 7.27 with bicarb of 12, POC 55, and mildly elevated AST 48 and ALT 39. No leukocytosis. Stable H&H. Significant electrolyte abnormalities. Renal function around baseline serum osmolality WNL. Lactic acid WNL at 1.1. Troponin negative. Ethyl negative. Tested negative for flu, COVID, RSV. Pt was treated with ondansetron, IVF, Protonix, and and started on D5 1/2 NS. She was admitted to the hospital for treatment and further evaluation of hypoglycemia in the setting of intractable nausea and vomiting likely secondary to doxycycline and persistent ibuprofen use. ABD US SHOWED: Dilated common duct measuring up to 1.3 cm. This is unchanged compared with abdominal ultrasound 12/28/2018. FAMILY HISTORY: Positive for colon cancer in a paternal aunt in her early 40's (had surgery lived for another 25 yrs) Plan 73 YF with lupus, HTN, HLD, fibromyalgia, asthma, GERD, and migraines [place] [facility] [place] with?nausea, diarrhea, and abdominal x5-6 days. Pt noted intractable nausea, non-bloody diarrhea, and abdominal pain, as well as altered taste 1-2 days after she started taking doxycycline. Stool studies were positive for entero-pathogenic E coli infection which is resolving. Pt reports improvement in diarrhea and has been tolerating oral diet. RECOMMENDATIONS: 1. Agree with IV fluids and antiemetics 2. Pt can FU in the GI clinic after discharge. She is due for a screening colonoscopy and prefers to have a stool cologuard instead. Stool Cologuard testing can be done as an outpatient once her acute symptoms have resolved PENDING SALE TO [facility] Medical History Hypertension Mitral valve prolapse Lupus GERD (gastroesophageal reflux disease) COVID-19 long hauler Hypoglycemia Asthma Hyperlipidemia Fibromyalgia Surgical History History of esophagogastroduodenoscopy (EGD) Hx of colonoscopy H/O dilation and curettage History of breast surgery Leg fracture, right Family History Paternal Aunt Breast CA Paternal Aunt Breast CA Social History Household Members: Spouse Household Members Other:: 2 Housing: House Do you presently have visiting nurse or other home services: No Alcohol intake: never Comment: pt. refusing bed alarm . Patient Tobacco Use Status: Never used Tobacco e-Cigarette/Vaping Use: Never Used Second Hand Smoke Exposure: No Advance Directives Date on File: 10/01/24 service: No Gender identity: Female Review of Systems Const Reports fatigue, Denies fever(s), Denies headache(s) and Reports weight loss Eyes Denies eye discharge and Denies irritation ENT Reports Normal hearing present, Denies dysphagia, Denies dizziness and Denies headache(s) Card Denies chest pain, Denies leg edema and Denies dyspnea on exertion Resp Denies cough, Denies dyspnea on exertion and Denies wheezing GI Reports abdominal pain (Mild), Denies change in bowel habits, Reports constipation, Denies dysphagia, Denies heartburn and Reports nausea Denies difficulty voiding, Denies dysuria and Reports vaginal pruritus (LMP 2009) Musc Reports back pain, Reports arthralgias and Reports other (arthritis) Skin/Breast Denies pruritus, Denies rash and Denies jaundice Neuro Reports Normal hearing present, Denies Abnormal speech present, Denies dizziness, Denies headache(s) and Denies seizure-like activity Psych Denies anxiety, Denies depression and Denies panic attacks Endo Denies cold intolerance, Reports fatigue, Denies flushing and Denies heat intolerance Ravi/Lymph Denies easy bleeding and Denies easy bruising Aller/Immun Denies wheezing Physical Exam Vital Signs: Last Vital Signs Pulse 76 10/18/24 14:17 BP 139/71 10/18/24 14:17 BMI result Body Mass Index 16.8 Const General: no acute distress Nutritional Appearance: underweight Orientation/consciousness: patient oriented x3 HEENT Head: Yes normal to inspection Ears: hearing grossly normal bilaterally Eyes Sclerae: sclerae normal Pupils: Equal, round and reactive pupils present Neck Neck: Yes normal visual inspection Chest Chest palpation & inspection: normal inspection of the chest Resp Effort & Inspection: normal respiratory effort Auscultation: clear to auscultation bilaterally Cardio Palpation: normal PMI Rate: regular rate Rhythm: regular rhythm Heart sounds: S1 normal heart sound present, S2 normal heart sound present and no murmurs GI Palpation (GI): Soft to palpation, nontender and No hepatosplenomegaly present Auscultation: normal bowel sounds Rectal Exam - Female: deferred Skin General skin exam: no rashes or lesions noted Neuro General: patient oriented x3, gait normal and moves all extremities Cranial nerves: Yes Equal, round and reactive pupils present and Yes Normal hearing present Speech: No Abnormal speech present Psych Appearance: grossly normal Mental Status: mental status grossly normal Assessment & Plan Assessment & Plan (1) Elevated LFTs: Code(s): R79.89 - Other specified abnormal findings of blood chemistry Category: Medical (2) Chronic diarrhea: Code(s): K52.9 - Noninfective gastroenteritis and colitis, unspecified Category: Medical (3) Crohn's disease: Code(s): K50.90 - Crohn's disease, unspecified, without complications Category: Medical (4) Protein calorie malnutrition: Code(s): E46 - Unspecified protein-calorie malnutrition Category: Medical Plan 74 YF with lupus, HTN, HLD, fibromyalgia, asthma, GERD, and migraine HAs [place] [facility] [place] 05[place]15, 05/21 to 05/24/24 and 09/30 to 10/10/24 with?nausea, diarrhea, and abdominal pain. Pt was admitted with intractable nausea, non-bloody diarrhea, and abdominal pain and altered taste 1-2 days after she started taking doxycycline. Stool studies were positive for entero-pathogenic E coli infection. Diarrhea has resolved and has been constipated x 3 weeks Appetite is very good always hungry and taking small meals. Appetite and taste is coming back In the past she took food and took Ibuprofen after meals to help with abdominal pain and had stopped taking it. She would like to resume - since she does not want to take narcotics. Stopped Ibuprofen since her hospitalization and she would like to resume - prescribed Celecoxib (pt is allergic to Diclofenac) Patient has MVP (valve is calcified now) and asthma and denies loud snoring or sleep apnea Pt had an EGD and colon and findings as noted above Pt was advised labs and to stop Ibuprofen and use celecoxib 100 mg PO BID instead 08/11/24 Had a relapse on 08/08 with projectile vomiting and diarrhea x hours Had 6-7 BMs and had 1 BM yesterday Gradually improved over the next few days Eating small meals - everything hurts - burning in her intestines Past evaluation: Stool studies were positive for entero-pathogenic E coli infection in 04/2024 and repeat stool studies were negative. IBD serologies were positive for Crohn's disease and fecal calprotectin was el evated Pt had an elevated chromogranin A, normal Ig G4 levels and Celiac serologies were negative CRP intermittently elevated. Pt had an EGD and colon which showed: ENDOSCOPIC STUDIES: 06/06/24 EGD AND COLON WERE PERFORMED BY DR HA: Impression: 1. Normal esophagus 2. Abhay erosions (biopsy) 3. Gastric polyps 3. Normal duodenum (biopsy) 4. Normal colon and T.I mucosa (biopsy) 5. One polyp removed from the colon 6. Internal and external hemorrhoids Recommendations:?? * No obvious mucosal abnormality to explain on going diarrhea. * Follow-up path results * Avoid NSAIDs * Poor prep in T.C. Repeat colonoscopy within 1-2 years if pt has not had a high quality colonoscopy within the last 5 years. * Labs for functional NET pending BIOPSIES SHOWED: A. Duodenum, biopsy: Chronic active duodenitis with moderate to marked villous blunting, surface erosion and increased intraepithelial lymphocytes (see comment). B. Stomach, random, biopsy: Gastric antral mucosa with mild chronic inactive gastritis and increased intraepithelial lymphocytes; negative for Helicobacter pylori, intestinal metaplasia and dysplasia (see comment). C. Colon, hepatic flexure, polypectomy: Tubular adenoma; negative for high-grade dysplasia. D. Colon, right side, biopsy: Colonic mucosa within normal limits; negative for active, chronic or microscopic colitis. E. Colon, left side, biopsy: Colonic mucosa within normal limits; negative for active, chronic or microscopic colitis. COMMENT (A&B): The histologic findings raise the possibility of celiac disease but cannot completely exclude infection, drug/medication effect, inflammatory bowel disease, lymphocytic gastritis, and non-specific gastritis. Clinical correlation is advised 08/24/24 CT Enterography showed: 1. No bowel obstruction, free intraperitoneal air or abscess is seen. No focal bowel wall thickening is seen. There is mild diverticulosis, without acute diverticulitis. 2. There is a small fat-containing umbilical hernia. 3. At L4-5, there is marked degenerative disc disease. Pt was started on Humira for Crohn's disease (took loading dose on 09/09/24 followed by 2nd dose of Humira after 2 weeks without relief of symptoms). She was started on a Prednisone taper since 09/22/24 and switched to PO Budesonide during hospitalization and 10/05/24 Pt was started on MTX 12.5 mg SQ. 10/18/24 Appetite is good - always hungry. Feels stomach fills up fast. Taste buds are not recovered - thinks she may have long COVID Taking approx 600 to 800 cals a day Takes nausea pills 1-2 times a day. On Home TPN 1560 ml daily. Having constipation - last BM was 4-5 days ago and was soft and discontinued Loperamide FU in 3 weeks Orders: Orders C Reactive Protein 10/18/24 K50.90 - Crohn's disease, unspecified, without complications Complete Blood Count no Diff 10/18/24 K50.90 - Crohn's disease, unspecified, without complications Medications: New methotrexate sodium (PF) 12.5 mg (0.5 mL) IM QWEEK 2.5 mL 3RF 30 days K50.90 - Crohn's disease, unspecified, without complications insulin syringe-needle U-100 ([facility] [employer]) As directed 10 ea 2RF polyethylene glycol 3350 (Miralax) 17 grams PO DAILY 510 grams 3RF 30 days K59.09 - Other constipation methotrexate sodium 12.5 mg (0.5 mL) subcut QWEEK 2 mL 3RF 28 days K50.90 - Crohn's disease, unspecified, without complications Discontinued methotrexate (PF) Discontinued Reason: Ancillary Entered New Order 12.5 mg (0.25 mL) subcut QWEEK 30 days 1.25 mL 2RF K50.90 - Crohn's disease, unspecified, without complications Coding Level of Care Code Est Pt Level 4 (45109) Diagnoses Elevated LFTs R79.89 Chronic diarrhea K52.9 Crohn's disease K50.90 Protein calorie malnutrition E46 Time Spent (min) 26
[2024-10-18 14:17] VITALS: BP 139/71; PULSE 76; BMI 16.8
== END 2024-10-18 15:05 | disposition home or self-care (01) ==
PROVIDERS: PCP Family Medicine; Visit Provider Internal Medicine Gastroenterology
DX: R79.89 Other specified abnormal findings of blood chemistry (principal); K52.9 Noninfective gastroenteritis and colitis, unspecified; K50.90 Crohn's disease, unspecified, without complications; E46 Unspecified protein-calorie malnutrition
CPT/HCPCS: 99499

== ENCOUNTER → 2024-10-18 14:09 | Outpatient (BNVA) | payer OTHER, SELFPAY | PROVIDERS: PCP Family Medicine; Visit Provider Internal Medicine Gastroenterology ==

== ENCOUNTER 2024-11-02 14:24 | Outpatient (REF) | payer OTHER, SELFPAY ==
--- NOTE | ~2024-11-02 | MM_ITS ---
EXAMINATION: MM SCREENING DIGITAL BREAST TOMOSYNTHESIS, BILATERAL CLINICAL INFORMATION: Screening. Asymptomatic. COMPARISON: Mammography: Comparison is made with available priors TECHNIQUE: Digital breast mammography with tomosynthesis is performed in both the craniocaudal and mediolateral oblique views along with computer-aided detection (CAD). FINDINGS: The breasts are heterogeneously dense, which may obscure small masses (ACR BI-RADS breast composition Category c). Right: Post surgical changes are stable. There are new grouped calcifications in the upper outer breast middle to posterior depth. No other suspicious abnormal findings. Left: There are no significant masses, abnormal calcifications, or other abnormalities. MM/MM tomosynthesis screening BI IMPRESSION: Additional imaging is recommended ASSESSMENT: BI-RADS BI-RADS 0 - Incomplete: Needs additional Imaging. RECOMMENDATION: 1. Additional views of the right breast. 2. Targeted ultrasound if warranted after review of the additional views. 3. Radiology department staff will contact the patient for additional imaging. Additional Imaging required This examination should not preclude the clinical evaluation of a suspicious palpable abnormality. This patient's information was entered into a reminder system with a target due date for their next mammogram. Electronically signed by: Lara Mane DO 11/13/2024 10:31 AM JUANY
--- NOTE | ~2024-11-02 | MM_ITS ---
EXAMINATION: Dual-Energy X-ray Absorptiometry - Bone Density Study HISTORY: Estrogen deficiency TECHNIQUE: Transmit Dual energy absorptiometry (DEXA) of the lumbar spine, total left hip, and femoral neck was performed. COMPARISON: Comparison is made with the prior examination dated 07/19/2021. FINDINGS: The bone mineral density of the lumbar spine is 0.781 with a T-score of -3.3, and a Z-score of -0.9. This represents a BMD change of -21.7% compared to the prior exam. This is statistically significant. The bone mineral density of the left total hip is 0.681 with a T-score of -2.6, and a Z-score of -0.4. This represents BMD change of -18.9% compared to the prior exam. This is statistically significant. The bone mineral density of the left femoral neck is 0.644 with a T-score of -2.8, and a Z-score of -0.5. This represents BMD change of -13.3% compared to the prior exam. MM/XR DEXA axial skeleton IMPRESSION: Based on bone mineral density, and according to World Health Organization (WHO) criteria, the diagnosis is consistent with osteoporosis. All bone density values are in grams per centimeter squared. At this facility, the least significant change in BMD with 95% confidence is 0.022 at the lumbar spine, 0.027 at the hip, and 0.023 at the distal 1/3 radius. Electronically signed by: Peewee Plaza MD 11/03/2024 07:42 AM EST
== END 2024-11-02 14:25 | disposition home or self-care (01) ==
LOC: HO.MAMMO 14:24
PROVIDERS: PCP Family Medicine; Visit Provider Family Medicine
DX: Z13.820 Encounter for screening for osteoporosis (principal); Z78.0 Asymptomatic menopausal state; M85.80 Other specified disorders of bone density and structure, unspecified site
CPT/HCPCS: 77063; 77067; 77080

== ENCOUNTER → 2024-11-02 14:30 | Outpatient (BNV) | payer OTHER, SELFPAY | PROVIDERS: PCP Family Medicine; Visit Provider Radiology Diagnostic Radiology | DX: Z12.31 Encounter for screening mammogram for malignant neoplasm of breast (principal) | CPT/HCPCS: 77063; 77067 ==

== ENCOUNTER 2024-11-17 13:55 | Outpatient (AMB) | payer OTHER, SELFPAY ==
--- NOTE | 2024-11-17 14:03 | MHC.OFFVIS ---
Vital Signs 11/17/24 14:11 Height 5 ft 3 in Weight 99 lb BMI 17.5 BP 122/70 Blood Pressure Location Lt brachial Position Sitting Pulse 86 Pulse Oximetry (%) 99 Intake Visit Reasons: FOLLOW UP Intake Note: Patient ED follow up for concern for a blood clot in the PICC line. Patient cc: chronic abdominal pain, swallowing discomfort. 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 Required: No Accompanied by: Family/Other Allergies levofloxacin (From LEVAQUIN) Allergy (Severe, Verified 04/10/25 15:39) Severe itching acetaminophen (From TYLENOL) Allergy (Intermediate, Verified 04/10/25 15:39) Itching epinephrine (EPINEPHRINE) Allergy (Intermediate, Verified 04/10/25 15:39) Tachycardia Penicillins (PENICILLINS) Allergy (Intermediate, Verified 04/10/25 15:39) Itching and hives diclofenac (DICLOFENAC) Allergy (Unknown, Verified 04/10/25 15:39) Hives meperidine (Demerol) Allergy (Unknown, Verified 04/10/25 15:39) Rash penicillin V Allergy (Unknown, Verified 04/10/25 15:39) Rash procaine (From NOVOCAIN) Allergy (Unknown, Verified 04/10/25 15:39) Unknown feathers Allergy (Verified 04/10/25 15:39) Itching wool Allergy (Verified 04/10/25 15:39) Itching Sulfa (Sulfonamide Antibiotics) (SULFA (SULFONAMIDE ANTIBIOTICS)) Adverse Reaction (Intermediate, Verified 04/10/25 15:39) Nausea doxycycline Adverse Reaction (Verified 04/10/25 15:39) Stomach Upset Medication List - Last Reconciled 11/17/24 by Fern Blackburn MD adalimumab-adaz (Hyrimoz(CF) Pen) 80 mg subcut DAILY adalimumab-adaz 40 mg (0.4 mL) subcut Q2W 4 weeks albuterol sulfate 90 mcg/actuation 2 puffs inhalation Q6H PRN apixaban (Eliquis) 5 mg PO BID budesonide 180 mcg/actuation (Pulmicort Flexhaler) 1 inh inhalation BID budesonide DR-ER 9 mg (3 x 3 mg) PO QAM 30 days carisoprodol 350 mg PO BEDTIME celecoxib 100 mg PO BEDTIME cyclosporine 0.05% (Restasis) 1 drp ophthalmic (eye) BID dicyclomine 10 mg PO QIDACHS folic acid 1 mg PO DAILY insulin syringe-needle U-100 (Advocate Syringes) As directed insulin syringe-needle U-100 (Advocate Syringes) As directed magnesium oxide 250 mg PO DAILY melatonin 10 mg PO BEDTIME methotrexate sodium 12.5 mg (0.5 mL) subcut QWEEK 28 days methotrexate sodium (PF) 12.5 mg (0.5 mL) IM QWEEK 30 days metoclopramide HCl 5 mg PO TID montelukast 10 mg PO BEDTIME omeprazole 20 mg PO BID promethazine 25 mg PO Q8H PRN 30 days propranolol 10 mg PO NEEDED PRN thiamine HCl (vitamin B1) 100 mg PO DAILY HPI HPI FOLLOW UP: Details: GI clinic visit for this 74 year old female with lupus, HTN, HLD, MVP with valve calcifiation, fibromyalgia, asthma, GERD, and migraine HAs for follow-up of abdominal pain, nausea and diarrhea after [place] [facility] [place]/03/24 and 09/2024 PT was hospitalized at [facility] [place] from 11/10/24 to 11/14/24 with RUE DVT related to PICC line and treated with Heparin followed by Apixiban. Advised to have PICC line removed after 14 days of anticoagulation and continue oral anticoagulation x 3 months TODAY'S VISIT: Pt is accompanied by her daughter, Juliane Patient cc: chronic abdominal pain, swallowing discomfort. Had a stich in the left lower ribs last night which was very painful - lasted 10 - 15 min Able to eat a regular diet. Seen by Nutrion and advised 1 chocolate milk shake daily Feels bloated if she eats too much. BMs are regular - notes some abdominal pain after a BM which resolves spontaneously Seen by GI at [facility] [place] and diagniosed with ? Celiac disease PAST VISITS: Had a relapse on 08/08 with projectile vomiting and diarrhea x hours Had 6-7 BMs and had 1 BM yesterday Gradually improved over the next few days Eating small meals - everything hurts - burning in her intestines She was freezing towards the end [place] exhausted towards the end Has costochondritis Normal BM hurts Complains of mouth sores for years - thought she had nutritional deficiency Pt states diarrhea has resolved and has been constipated x 3 weeks Appetite is very good always hungry and taking small meals. Appetite and taste is coming back Has gained 1 lb over the last week (was 98 lbs last week) Had to use a cane for a while since she was feeling dizzy Patient can have a constant throat irritation (? post nasal drip) and denies heartburn, dysphagia. Takes a nausea pill once a day Notes abdominal soreness in the upper abdomen/intestines In the past she took food and took Ibuprofen after meals to help with abdominal pain and had stopped taking it. She would like to resume - since she does not want to take narcotics. Has a BM 2-3 times a day with marble like stools - plans to start taking colace. Denies recent black stools or rectal bleeding. Has developed hemorrhoids after having diarrhea recently (denies bleeding) Muscles in the back are always hurting and its painful to get up She was taking Ibuprofen 200 mg (two tab at bedtime) for the past several years. Stopped Ibuprofen since her hospitalization and she would like to resume - prescribed Celecoxib (pt is allergic to Diclofenac) Patient has MVP (valve is calcified now) and asthma and denies loud snoring or sleep apnea Denies being on chronic anticoagulation. Patient denies known family history of colon polyps, colon cancer or other GI malignancies [facility] Medical History Hypertension Mitral valve prolapse Lupus GERD (gastroesophageal reflux disease) COVID-19 long hauler Hypoglycemia Asthma Hyperlipidemia Fibromyalgia Surgical History History of esophagogastroduodenoscopy (EGD) Hx of colonoscopy H/O dilation and curettage History of breast surgery Leg fracture, right Family History Paternal Aunt Breast CA Paternal Aunt Breast CA Social History Household Members: Spouse Household Members Other:: 2 Housing: House Do you presently have visiting nurse or other home services: No Alcohol intake: never Comment: pt. refusing bed alarm . Patient Tobacco Use Status: Never used Tobacco e-Cigarette/Vaping Use: Never Used Second Hand Smoke Exposure: No Advance Directives Date on File: 10/01/24 service: No Gender identity: Female Physical Exam Vital Signs: Last Vital Signs Pulse 86 11/17/24 14:11 BP 122/70 11/17/24 14:11 Pulse Ox 99 11/17/24 14:11 BMI result Body Mass Index 17.5 Const General: no acute distress Nutritional Appearance: underweight Orientation/consciousness: patient oriented x3 HEENT Head: Yes normal to inspection Ears: hearing grossly normal bilaterally Eyes Sclerae: sclerae normal Pupils: Equal, round and reactive pupils present Neck Neck: Yes normal visual inspection Chest Chest palpation & inspection: normal inspection of the chest Resp Effort & Inspection: normal respiratory effort Auscultation: clear to auscultation bilaterally Cardio Palpation: normal PMI Rate: regular rate Rhythm: regular rhythm Heart sounds: S1 normal heart sound present, S2 normal heart sound present and no murmurs GI Palpation (GI): Soft to palpation, nontender and No hepatosplenomegaly present Auscultation: normal bowel sounds Rectal Exam - Female: deferred Skin General skin exam: no rashes or lesions noted Neuro General: patient oriented x3, gait normal and moves all extremities Cranial nerves: Yes Equal, round and reactive pupils present Psych Appearance: grossly normal Mental Status: mental status grossly normal Assessment & Plan Assessment & Plan (1) Abdominal pain: Code(s): R10.9 - Unspecified abdominal pain Category: Medical (2) Chronic diarrhea: Code(s): K52.9 - Noninfective gastroenteritis and colitis, unspecified Category: Medical (3) Crohn's disease: Code(s): K50.90 - Crohn's disease, unspecified, without complications Category: Medical (4) Protein calorie malnutrition: Code(s): E46 - Unspecified protein-calorie malnutrition Category: Medical (5) Deep vein thrombosis (DVT) of right upper extremity: Code(s): I82.621 - Acute embolism and thrombosis of deep veins of right upper extremity Category: Medical (6) Osteoporosis: Code(s): M81.0 - Age-related osteoporosis without current pathological fracture Category: Medical Plan YF with lupus, HTN, HLD, fibromyalgia, asthma, GERD, and migraines hospitalized [place] [facility] [place] 05/15 and 05/21 to 05/24/24 with?nausea, diarrhea, and abdominal x 5-6 days. Pt was admitted with intractable nausea, non-bloody diarrhea, and abdominal pain and altered taste 1-2 days after she started taking doxycycline. Stool studies were positive for entero-pathogenic E coli infection. Diarrhea has resolved and has been constipated x 3 weeks Appetite is very good always hungry and taking small meals. Appetite and taste is coming back In the past she took food and took Ibuprofen after meals to help with abdominal pain and had stopped taking it. She would like to resume - since she does not want to take narcotics. Stopped Ibuprofen since her hospitalization and she would like to resume - prescribed Celecoxib (pt is allergic to Diclofenac) Patient has MVP (valve is calcified now) and asthma and denies loud snoring or sleep apnea Pt had an EGD and colon and findings as noted above Pt was advised labs and to stop Ibuprofen and use celecoxib 100 mg PO BID instead 08/11/24 Had a relapse on 08/08 with projectile vomiting and diarrhea x hours Had 6-7 BMs and had 1 BM yesterday Gradually improved over the next few days Eating small meals - everything hurts - burning in her intestines IBD serologies were positive for Crohn's disease. Pt advised further evaluation with CT enterography, T spot To start Humira for Crohn's disease - she will come to the clinic for initial injection after approval is obtained from her insurance 10/18/24 Appetite is good - always hungry. Feels stomach fills up fast. Taste buds are not recovered - thinks she may have long COVID Taking approx 600 to 800 cals a day Takes nausea pills 1-2 times a day. On Home TPN 1560 ml daily. Having constipation - last BM was 4-5 days ago and was soft and discontinued Loperamide 11/17/24 Seen by Ana and advised 1 chocolate milk shake daily Feels bloated if she eats too much. BMs are regular - notes some abdominal pain after a BM which resolves spontaneously Referred to endocrinology for management of osteoporosis. Referred to Hematology Oncology for management of DVT of right upper extremity. FU in 6 weeks Orders: Orders IR cvc remove any age 0111/17/24 Z45.2 - Encounter for adjustment and management of vascular access device Referrals Endocrinology Referral M81.0 - Age-related osteoporosis without current pathological fracture Hematology & Oncology Referral I82.621 - Acute embolism and thrombosis of deep veins of right upper extremity Medications: Changed From insulin syringe-needle U-100 As directed 10 ea 2RF To insulin syringe-needle U-100 (Advocate Syringes) As directed 10 ea 2RF Coding Level of Care Code Est Pt Level 4 (10214) Complex EM visit Add On G2211 Diagnoses Abdominal pain R10.9 Chronic diarrhea K52.9 Crohn's disease K50.90 Protein calorie malnutrition E46 Deep vein thrombosis (DVT) of right upper extremity I82.621 Osteoporosis M81.0 Time Spent (min) 22
[2024-11-17 14:11] VITALS: BP 122/70; PULSE 86; O2SAT 99; BMI 17.5
== END 2024-11-17 17:17 | disposition home or self-care (01) ==
PROVIDERS: PCP Family Medicine; Visit Provider Internal Medicine Gastroenterology
DX: R10.9 Unspecified abdominal pain (principal); K52.9 Noninfective gastroenteritis and colitis, unspecified; K50.90 Crohn's disease, unspecified, without complications; E46 Unspecified protein-calorie malnutrition; I82.621 Acute embolism and thrombosis of deep veins of right upper extremity; M81.0 Age-related osteoporosis without current pathological fracture
CPT/HCPCS: 99499

== ENCOUNTER → 2024-11-17 13:55 | Outpatient (BNVA) | payer OTHER, SELFPAY | PROVIDERS: PCP Family Medicine; Visit Provider Internal Medicine Gastroenterology | DX: Z45.2 Encounter for adjustment and management of vascular access device (principal) ==

== ENCOUNTER → 2024-11-21 13:33 | Outpatient (BNV) | payer OTHER, SELFPAY | PROVIDERS: PCP Family Medicine; Visit Provider Nurse Practitioner Family | DX: I82.621 Acute embolism and thrombosis of deep veins of right upper extremity (principal); T82.868A Thrombosis due to vascular prosthetic devices, implants and grafts, initial encounter | CPT/HCPCS: 99203 ==

== ENCOUNTER 2024-11-21 14:43 | Outpatient (REF) | payer OTHER, SELFPAY ==
--- NOTE | 2024-11-21 16:20 | HO.REMOVAL ---
Removal of PICC/Midline Removal of PICC/Midline: Removal of PICC/Midline: 1. Date: [11/21/2024] 2. Reason removed: treatment complete 3. Inserted length: 41cm 4. Removed length: 41cm 5. A dressing was placed over the site upon removal. No edema or bleeding at the site.
== END 2024-11-21 14:44 | disposition home or self-care (01) ==
LOC: HO.RADIR 14:43
PROVIDERS: Visit Provider Internal Medicine Medical Oncology
DX: Z13.89 Encounter for screening for other disorder (principal)

== ENCOUNTER 2024-11-22 12:33 | Outpatient (REF) | payer OTHER, SELFPAY ==
--- NOTE | ~2024-11-22 | US_ITS ---
EXAMINATION: US TRIPLEX UPPER EXTREMITY, RIGHT CLINICAL INFORMATION: Acute embolism and thrombosis of deep veins of right upper extremity COMPARISON: None available. TECHNIQUE: Color-flow triplex imaging with spectral analysis and compression Doppler was performed on the right upper extremity. FINDINGS: There is acute on chronic thrombus with partial flow seen in the right subclavian, right axillary and anterior branch of proximal brachial veins. Rest of the brachial, basilic, cephalic, radial, and ulnar veins are patent and compressible. US/US venous duplex UE RT IMPRESSION: Positive DVT right upper extremity. Electronically signed by: Dao Morales MD 11/22/2024 02:00 PM [facility] [place]
== END 2024-11-22 12:34 | disposition home or self-care (01) ==
LOC: HO.US 12:33
PROVIDERS: PCP Family Medicine; Visit Provider Internal Medicine Gastroenterology
DX: I82.621 Acute embolism and thrombosis of deep veins of right upper extremity (principal)
CPT/HCPCS: 93971

== ENCOUNTER → 2024-11-22 12:34 | Outpatient (BNV) | payer OTHER, SELFPAY | PROVIDERS: PCP Family Medicine; Visit Provider Radiology Diagnostic Radiology | DX: I82.621 Acute embolism and thrombosis of deep veins of right upper extremity (principal) | CPT/HCPCS: 93971 ==

== ENCOUNTER 2024-11-28 14:06 | Outpatient (AMB) ==
[2024-11-28 14:18] VITALS: BMI 19.2
--- NOTE | 2024-11-28 14:18 | MHC.OFFVIS ---
Vital Signs 11/28/24 14:18 Height 5 ft 2 in Weight 104 lb 15.04 oz BMI 19.2 Intake Visit Reasons: Age-related osteoporosis/Confirmed Intake Note: Patient presents for osteosporosis. Allergies levofloxacin [From LEVAQUIN] Allergy (Severe, Verified 11/28/24 14:22) Severe itching shellfish derived Allergy (Severe, Verified 11/28/24 14:22) Anaphylaxis acetaminophen [From TYLENOL] Allergy (Intermediate, Verified 11/28/24 14:22) Itching epinephrine [EPINEPHRINE] Allergy (Intermediate, Verified 11/28/24 14:22) Tachycardia iodine [IODINE] Allergy (Intermediate, Verified 11/28/24 14:22) Rash Penicillins [PENICILLINS] Allergy (Intermediate, Verified 11/28/24 14:22) Itching and hives egg [EGG] Allergy (Mild, Verified 11/28/24 14:22) Sensitivity and rash both reported diclofenac [DICLOFENAC] Allergy (Unknown, Verified 11/28/24 14:22) Hives meperidine [Demerol] Allergy (Unknown, Verified 11/28/24 14:22) Rash penicillin V Allergy (Unknown, Verified 11/28/24 14:22) Rash procaine [From NOVOCAIN] Allergy (Unknown, Verified 11/28/24 14:22) Unknown Egg Derived Allergy (Verified 11/28/24 14:22) Rash feathers Allergy (Verified 11/28/24 14:22) Itching wool Allergy (Verified 11/28/24 14:22) Itching Sulfa (Sulfonamide Antibiotics) [SULFA (SULFONAMIDE ANTIBIOTICS)] Adverse Reaction (Intermediate, Verified 11/28/24 14:22) Nausea doxycycline Adverse Reaction (Verified 11/28/24 14:22) Stomach Upset goat Allergy (Uncoded 11/28/24 14:22) Itching Medication List - Last Reconciled 11/28/24 by Peewee Brower MD adalimumab-adaz 40 mg (0.4 mL) subcut Q2W 4 weeks adalimumab-adaz (Hyrimoz(CF) Pediatric Crohn's Startr) mg subcut albuterol sulfate 90 mcg/actuation 2 puffs inhalation Q6H PRN apixaban (Eliquis) 5 mg PO BID budesonide DR-ER 9 mg (3 x 3 mg) PO QAM 30 days carisoprodol 350 mg PO BEDTIME celecoxib 100 mg PO BEDTIME cyclosporine 0.05% (Restasis) 1 drp ophthalmic (eye) BID cyclosporine 0.05% (Restasis) 1 drp ophthalmic (eye) Q12H dicyclomine 10 mg PO QIDACHS dicyclomine 10 mg PO BID folic acid 1 mg PO DAILY insulin syringe-needle U-100 (Advocate Syringes) As directed magnesium oxide 250 mg PO DAILY melatonin 10 mg PO BEDTIME methotrexate sodium 12.5 mg (0.5 mL) subcut QWEEK 28 days methotrexate sodium (PF) 12.5 mg (0.5 mL) IM QWEEK 30 days metoclopramide HCl 5 mg PO TID montelukast 10 mg PO BEDTIME omeprazole 20 mg PO BID promethazine 25 mg PO Q8H PRN 30 days propranolol 10 mg PO NEEDED PRN thiamine HCl (vitamin B1) 100 mg PO DAILY HPI Comments Details: 74 YO Female with PMHx Crohn's Dx and chronic diarrhea is seen in consultation at the request of PCP for Osteoporosis. First diagnosed in recently . Not Received treatment in the past History of pathologic fracture fell backwards fracturing R ankle and tibia or ONJ. Has several servings of dietary calcium per day in the form of cheese, cereal , ice cream . Not Takes Calcium supplement mg daily in divided doses. Takes ? IU of Vitamin D daily. Takes PPI, +anticoagulant Eliquis , -antiepileptic + glucocorticoid medication. 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 UTD on dental cleanings and sees dentist every 6 months. No planned upcoming dental work or extractions. No tabacco or heavy ETOH use DXA dated 11/02/24 :FINDINGS: The bone mineral density of the lumbar spine is 0.781 with a T-score of -3.3, and a Z-score of -0.9. This represents a BMD change of -21.7% compared to the prior exam. This is statistically significant. The bone mineral density of the left total hip is 0.681 with a T-score of -2.6, and a Z-score of -0.4. This represents BMD change of -18.9% compared to the prior exam. This is statistically significant. The bone mineral density of the left femoral neck is 0.644 with a T-score of -2.8, and a Z-score of -0.5. This represents BMD change of -13.3% compared to the prior exam. MM/XR DEXA axial skeleton IMPRESSION: Based on bone mineral density, and according to World Health Organization (WHO) criteria, the diagnosis is consistent with osteoporosis. Labs: [facility] Medical History (Updated 11/21/24 @ 16:58 by Ann Crawford NP) Hypertension Mitral valve prolapse Lupus GERD (gastroesophageal reflux disease) COVID-19 long hauler Hypoglycemia Asthma Hyperlipidemia Fibromyalgia Surgical History (Updated 11/28/24 @ 14:27 by VINCE Florentino) H/O dilation and curettage History of breast surgery Leg fracture, right Social History Household Members: Spouse and Family Household Members Other:: 2 Housing: House Do you presently have visiting nurse or other home services: No Alcohol intake: never Comment: pt. refusing bed alarm . Patient Tobacco Use Status: Never used Tobacco e-Cigarette/Vaping Use: Never Used Second Hand Smoke Exposure: No Advance Directives Date on File: 10/01/24 service: No Gender identity: Female Physical Exam There are no Cushingoid features. Absence of blue sclera. Absence of kyphosis. Thyroid gland is of nl size and weighs 15 gms. There are no thyroid nodules palpated. Lungs CTA. Heart S1 S2 Reg R/R Abdominal exam benign. Muscle strength 5/5 . Examination of spine reveals absence of tenderness on palpation Assessment & Plan Assessment & Plan (1) Osteoporosis: Code(s): M81.0 - Age-related osteoporosis without current pathological fracture Category: Medical Plan: This is a 74-year-old white female with a history of chronic diarrhea and Crohn's disease recently found to have moderate to severe osteoporosis. Partial secondary workup has been taken. Plan is to complete the secondary workup by checking SPEP, urine immunofixation, 24 hour urine for calcium and creatinine in 8 wks . Will ensure 1200 mg of calcium as well as vitamin-D supplementation currently taking. Assuming secondary workup was negative and the patient is calcium replete, would strongly consider the use of anabolic therapy such as Evenity, Tymlos or Forteo initially proceeded by anti resorptive therapy considering patient has very low bone density this is a very high risk for fracture Orders: Orders Protein Electrophoresis, Serum Today M81.0 - Age-related osteoporosis without current pathological fracture Calcium, 24 Hr Ur Today M81.0 - Age-related osteoporosis without current pathological fracture Immunofixation, Random Urine Today M81.0 - Age-related osteoporosis without current pathological fracture Creatinine, 24 Hr Group Today M81.0 - Age-related osteoporosis without current pathological fracture Coding Level of Care Code New Pt Level 4 (72772) Diagnoses Osteoporosis M81.0
== END 2024-11-28 15:07 | disposition home or self-care (01) ==
PROVIDERS: PCP Family Medicine; Visit Provider Internal Medicine Endocrinology, Diabetes & Metabolism
DX: M81.0 Age-related osteoporosis without current pathological fracture (principal)
CPT/HCPCS: 99204

== ENCOUNTER 2024-12-06 12:39 | Outpatient (REF) | payer OTHER, SELFPAY | END 2024-12-06 12:40 | disposition home or self-care (01) | LOC: HO.MAMMO 12:39 | PROVIDERS: PCP Family Medicine; Visit Provider Family Medicine | DX: Z13.89 Encounter for screening for other disorder (principal) ==

== ENCOUNTER 2024-12-09 10:08 | Outpatient (REF) | payer OTHER, SELFPAY ==
--- NOTE | ~2024-12-09 | MM_ITS ---
EXAMINATION: MM DIAGNOSTIC DIGITAL MAMMOGRAPHY, RIGHT CLINICAL INFORMATION: Call back from screening for grouped calcifications in the right breast. History of paternal aunt with breast cancer. COMPARISON: Mammography: Available prior examinations on PACS TECHNIQUE: Digital mammography is performed in craniocaudal and mediolateral oblique views along with computer-aided detection (CAD). FINDINGS: There are scattered areas of fibroglandular density (ACR BI-RADS breast composition Category b). There are new grouped coarse heterogeneous calcifications in the upper outer breast middle to posterior depth. No suspicious masses or other abnormal findings. Results are provided to the patient at time of visit by the technologist. MM/MM added views RT IMPRESSION: New grouped coarse heterogeneous calcifications in the upper outer breast. Recommend histology with stereotactic core needle biopsy at this time. The findings and recommendations were discussed with the patient the procedure will be scheduled. ASSESSMENT: BI-RADS BI-RADS 4 - Suspicious finding RECOMMENDATION: Biopsy recommended This patient's information was entered into a reminder system with a target due date for their next mammogram. Electronically signed by: Lara Mane DO 12/09/2024 11:00 AM JUANY BARNETT
== END 2024-12-09 10:09 | disposition home or self-care (01) ==
LOC: HO.MAMMO 10:08
PROVIDERS: PCP Family Medicine; Visit Provider Family Medicine
DX: R92.1 Mammographic calcification found on diagnostic imaging of breast (principal)
CPT/HCPCS: 77065

== ENCOUNTER → 2024-12-09 10:45 | Outpatient (BNV) | payer OTHER, SELFPAY | PROVIDERS: PCP Family Medicine; Visit Provider Internal Medicine | DX: R92.1 Mammographic calcification found on diagnostic imaging of breast (principal) | CPT/HCPCS: 77065 ==

== ENCOUNTER 2024-12-22 14:01 | Outpatient (AMB) | payer OTHER, SELFPAY ==
--- NOTE | 2024-12-22 14:01 | A.OFFVIS_ITS ---
Vital Signs 12/22/24 14:04 12/22/24 14:15 12/22/24 14:49 Height 5 ft 2 in Weight 105 lb BMI 19.2 BP 183/86 H 176/80 H 142/76 H Blood Pressure Location Lt brachial Lt brachial Lt brachial Position Sitting Sitting Sitting Pulse 86 Pulse Oximetry (%) 97 Oxygen Delivery Method Room Air Intake Visit Reasons: follow up Intake Note: Patient follow up for chronic diarrhea. Patient cc: abdominal discomfort, swallowing problem with rice. Patient also complaning on breast and ribs pain. Drug Abuse Worker Required: No Accompanied by: Family/Other Allergies levofloxacin (From LEVAQUIN) Allergy (Severe, Verified 04/10/25 15:39) Severe itching acetaminophen (From TYLENOL) Allergy (Intermediate, Verified 04/10/25 15:39) Itching epinephrine (EPINEPHRINE) Allergy (Intermediate, Verified 04/10/25 15:39) Tachycardia Penicillins (PENICILLINS) Allergy (Intermediate, Verified 04/10/25 15:39) Itching and hives diclofenac (DICLOFENAC) Allergy (Unknown, Verified 04/10/25 15:39) Hives meperidine (Demerol) Allergy (Unknown, Verified 04/10/25 15:39) Rash penicillin V Allergy (Unknown, Verified 04/10/25 15:39) Rash procaine (From NOVOCAIN) Allergy (Unknown, Verified 04/10/25 15:39) Unknown feathers Allergy (Verified 04/10/25 15:39) Itching wool Allergy (Verified 04/10/25 15:39) Itching Sulfa (Sulfonamide Antibiotics) (SULFA (SULFONAMIDE ANTIBIOTICS)) Adverse Reaction (Intermediate, Verified 04/10/25 15:39) Nausea doxycycline Adverse Reaction (Verified 04/10/25 15:39) Stomach Upset Medication List - Last Reconciled 12/22/24 by Fern Blackburn MD adalimumab-adaz 40 mg (0.4 mL) subcut Q2W 4 weeks adalimumab-adaz (Hyrimoz(CF) Pediatric Crohn's Startr) mg subcut albuterol sulfate 90 mcg/actuation 2 puffs inhalation Q6H PRN apixaban (Eliquis) 5 mg PO BID budesonide DR-ER 9 mg (3 x 3 mg) PO QAM 30 days carisoprodol 350 mg PO BEDTIME celecoxib 100 mg PO BEDTIME cyclosporine 0.05% (Restasis) 1 drp ophthalmic (eye) BID cyclosporine 0.05% (Restasis) 1 drp ophthalmic (eye) Q12H dicyclomine 10 mg PO QIDACHS dicyclomine 10 mg PO BID folic acid 1 mg PO DAILY insulin syringe-needle U-100 (Advocate Syringes) As directed magnesium oxide 250 mg PO DAILY melatonin 10 mg PO BEDTIME methotrexate sodium 12.5 mg (0.5 mL) subcut QWEEK 28 days methotrexate sodium (PF) 12.5 mg (0.5 mL) IM QWEEK 30 days metoclopramide HCl 5 mg PO TID montelukast 10 mg PO BEDTIME omeprazole 20 mg PO BID promethazine 25 mg PO Q8H PRN 30 days propranolol 10 mg PO NEEDED PRN thiamine HCl (vitamin B1) 100 mg PO DAILY HPI HPI follow up: Details: GI clinic visit for this 74 year old female with lupus, HTN, HLD, MVP with valve calcifiation, fibromyalgia, asthma, GERD, and migraine HAs for follow-up of abdominal pain, nausea and diarrhea after [place] [facility] [place]03[place]24 and 09/2024 TODAY'S VISIT: Patient cc: abdominal discomfort, swallowing problem with rice. Patient also complaning of breast and ribs pain Pt is accompanied by her daughter, Crystal Appetite is great. When she eats rice, it gets stuck in the throat. No problem with other foods Having a normal BM 1-2 times a day. Also notes dizziness and vertigo (stopped dicyclomine 2 weeks ago). Has been having shooting pains in the ribs and back Notes pains in the ribs radiating to the back - - rib xray ordered. Also has an eye infection and is using antibiotic eye drops PAST VISITS: Patient cc: chronic abdominal pain, swallowing discomfort. Had a stich in the left lower ribs last night which was very painful - lasted 10 - 15 min Able to eat a regular diet. Seen by Nutrion and advised 1 chocolate milk shake Feels bloated if she eats too much. BMs are regular - notes some abdominal pain after a BM which resolves spontaneously [place] [facility] [place] diagniosed with ? Celiac disease Had a relapse on 08/08 with projectile vomiting and diarrhea x hours Had 6-7 BMs and had 1 BM yesterday Gradually improved over the next few days Eating small meals - everything hurts - burning in her intestines She was freezing towards the end [place] exhausted towards the end Has costochondritis Normal BM hurts Complains of mouth sores for years - thought she had nutritional deficiency PT was [place] [facility] to 11/14/24 with RUE DVT related to PICC line and treated with Heparin followed by Apixiban. Advised to have PICC line removed after 14 days of anticoagulation and continue oral anticoagulation x 3 months Pt states diarrhea has resolved and has been constipated x 3 weeks Appetite is very good always hungry and taking small meals. Appetite and taste is coming back Has gained 1 lb over the last week (was 98 lbs last week) Had to use a cane for a while since she was feeling dizzy Patient can have a constant throat irritation (? post nasal drip) and denies heartburn, dysphagia. Takes a nausea pill once a day Notes abdominal soreness in the upper abdomen/intestines In the past she took food and took Ibuprofen after meals to help with abdominal pain and had stopped taking it. She would like to resume - since she does not want to take narcotics. Has a BM 2-3 times a day with marble like stools - plans to start taking colace. Denies recent black stools or rectal bleeding. Has developed hemorrhoids after having diarrhea recently (denies bleeding) Muscles in the back are always hurting and its painful to get up She was taking Ibuprofen 200 mg (two tab at bedtime) for the past several years. Stopped Ibuprofen since her hospitalization and she would like to resume - prescribed Celecoxib (pt is allergic to Diclofenac) Patient has MVP (valve is calcified now) and asthma and denies loud snoring or sleep apnea Denies being on chronic anticoagulation. Patient denies known family history of colon polyps, colon cancer or other GI malignancie [facility] Medical History Hypertension Mitral valve prolapse Lupus GERD (gastroesophageal reflux disease) COVID-19 long hauler Hypoglycemia Asthma Hyperlipidemia Fibromyalgia Surgical History History of esophagogastroduodenoscopy (EGD) Hx of colonoscopy H/O dilation and curettage History of breast surgery Leg fracture, right Family History Paternal Aunt Breast CA Paternal Aunt Breast CA Social History Household Members: Spouse Household Members Other:: 2 Housing: House Do you presently have visiting nurse or other home services: No Alcohol intake: never Comment: pt. refusing bed alarm . Patient Tobacco Use Status: Never used Tobacco e-Cigarette/Vaping Use: Never Used Second Hand Smoke Exposure: No Advance Directives Date on File: 10/01/24 service: No Gender identity: Female Review of Systems Const All systems reviewed & are unremarkable except as noted in HPI and below Physical Exam Vital Signs: Last Vital Signs Pulse 86 12/22/24 14:04 BP 142/76 H 12/22/24 14:49 Pulse Ox 97 12/22/24 14:04 Oxygen Delivery Method Room Air 12/22/24 14:04 BMI result Body Mass Index 19.2 Const General: no acute distress Nutritional Appearance: underweight Orientation/consciousness: patient oriented x3 HEENT Head: Yes normal to inspection Ears: hearing grossly normal bilaterally Eyes Sclerae: sclerae normal Pupils: Equal, round and reactive pupils present Neck Neck: Yes normal visual inspection Chest Chest palpation & inspection: normal inspection of the chest and localized rib tenderness with anteroposterior compression Resp Effort & Inspection: normal respiratory effort Auscultation: clear to auscultation bilaterally Cardio Palpation: normal PMI Rate: regular rate Rhythm: regular rhythm Heart sounds: S1 normal heart sound present, S2 normal heart sound present and no murmurs GI Palpation (GI): Soft to palpation, Tenderness to palpation present (GI) (Mild epigastric tenderness) and No hepatosplenomegaly present Auscultation: normal bowel sounds Rectal Exam - Female: deferred Skin General skin exam: no rashes or lesions noted Neuro General: patient oriented x3, gait normal and moves all extremities Cranial nerves: Yes Equal, round and reactive pupils present Psych Appearance: grossly normal Mental Status: mental status grossly normal Assessment & Plan Assessment & Plan (1) Elevated LFTs: Code(s): R79.89 - Other specified abnormal findings of blood chemistry Category: Medical (2) Abdominal pain: Code(s): R10.9 - Unspecified abdominal pain Category: Medical (3) Crohn's disease: Code(s): K50.90 - Crohn's disease, unspecified, without complications Category: Medical (4) Rib pain: Code(s): R07.81 - Pleurodynia Category: Medical (5) RUQ abdominal pain: Code(s): R10.11 - Right upper quadrant pain Category: Medical Plan 74 YF with lupus, HTN, HLD, fibromyalgia, asthma, GERD, and migraines hosp italized [place] [facility] [place] 05/[place] and 05/21 to 05/24/24 with?nausea, diarrhea, and abdominal x 5-6 days. Pt was admitted with intractable nausea, non-bloody diarrhea, and abdominal pain and altered taste 1-2 days after she started taking doxycycline. Stool studies were positive for entero-pathogenic E coli infection. Diarrhea resolved and pt complained of constipation x 3 weeks Appetite is very good always hungry and taking small meals. Appetite and taste is coming back In the past she took food and took Ibuprofen after meals to help with abdominal pain and had stopped taking it. She would like to resume - since she does not want to take narcotics. Stopped Ibuprofen since her hospitalization and she would like to resume - prescribed Celecoxib (pt is allergic to Diclofenac) Patient has MVP (valve is calcified now) and asthma and denies loud snoring or sleep apnea Pt had an EGD and colon and findings as noted above Pt was advised labs and to stop Ibuprofen and use celecoxib 100 mg PO BID instead 08/11/24 Had a relapse on 08/08 with projectile vomiting and diarrhea x hours Had 6-7 BMs and had 1 BM yesterday Gradually improved over the next few days Eating small meals - everything hurts - burning in her intestines IBD serologies were positive for Crohn's disease. Pt advised further evaluation with CT enterography, T spot To start Humira for Crohn's disease - she will come to the clinic for initial injection after approval is obtained from her insurance Pt was hospitalized [place] [facility] [place]10/24 with failure to thrive: Hospital course: Patient was admitted with failure to thrive and moderate protein calorie malnutrition in the setting of Crohn's disease. She was treated with Bentyl, Imodium as needed, antiemetics, analgesics, Humira, methotrexate, budesonide. She was seen by nutrition felt caloric intake was insufficient and patient was put on peripheral parenteral nutrition. Though diet improving and diarrhea better controlled, it was felt that patient would still benefit from continuing TPN while caloric intake and weight increases as outpatient and was discharged on home TPN. For mild intermittent asthma she remained stable. For anxiety was continued on propranolol. For GERD continued on PPI. 10/18/24 Appetite is good - always hungry. Feels stomach fills up fast. Taste buds are not recovered - thinks she may have long COVID Taking approx 600 to 800 cals a day Takes nausea pills 1-2 times a day. On Home TPN 1560 ml daily. Having constipation - last BM was 4-5 days ago and was soft and discontinued Loperamide 11/17/24 pt [place] [facility] to 11/14/24 with RUE DVT related to PICC line and treated with Heparin followed by Apixiban. Advised to have PICC line removed after 14 days of anticoagulation and continue oral anticoagulation x 3 months PICC line was removed by IR Seen by Nicky and advised 1 chocolate milk shake daily Feels bloated if she eats too much. BMs are regular - notes some abdominal pain after a BM which resolves spontaneously Referred to endocrinology for management of osteoporosis. Referred to Hematology Oncology for management of DVT of right upper extremity. Scheduled for a GI FU in [place] on March 09. Also has an appt to check for PCN allergy at the Allergy clinic. 12/22/24 Having a normal BM 1-2 times a day. Also notes dizziness and vertigo (stopped dicyclomine 2 weeks ago). Has been having shooting pains in the ribs and back Notes pains in the ribs radiating to the back. FU in 8 weeks Orders: Orders Complete Blood Count Auto Diff 12/26/24 K50.90 - Crohn's disease, unspecified, without complications Comprehensive Met. Panel 12/26/24 K50.90 - Crohn's disease, unspecified, without complications C Reactive Protein 12/26/24 K50.90 - Crohn's disease, unspecified, without complications XR ribs LT 2V 12/22/24 R07.81 - Pleurodynia XR ribs RT 2V 12/22/24 R07.81 - Pleurodynia US abdomen complete 12/22/24 R10.11 - Right upper quadrant pain Coding Level of Care Code Est Pt Level 4 (18313) Complex EM visit Add On G2211 Diagnoses Elevated LFTs R79.89 Abdominal pain R10.9 Crohn's disease K50.90 Rib pain R07.81 RUQ abdominal pain R10.11 Time Spent (min) 21
[2024-12-22 14:04] VITALS: BP 183/86; PULSE 86; O2SAT 97; BMI 19.2
[2024-12-22 14:15] VITALS: BP 176/80
[2024-12-22 14:49] VITALS: BP 142/76
== END 2024-12-22 16:27 | disposition home or self-care (01) ==
LOC: HO.HGI 14:01
PROVIDERS: PCP Family Medicine; Visit Provider Internal Medicine Gastroenterology
DX: R79.89 Other specified abnormal findings of blood chemistry (principal); R10.9 Unspecified abdominal pain; K50.90 Crohn's disease, unspecified, without complications; R07.81 Pleurodynia; R10.11 Right upper quadrant pain
CPT/HCPCS: 99499

== ENCOUNTER → 2024-12-22 14:01 | Outpatient (BNVA) | payer OTHER, SELFPAY | PROVIDERS: PCP Family Medicine; Visit Provider Internal Medicine Gastroenterology ==

== ENCOUNTER 2024-12-23 16:50 | Outpatient (REF) | payer OTHER, SELFPAY ==
--- NOTE | ~2024-12-23 | US_ITS ---
CLINICAL HISTORY: Follow up RUE DVT Venous duplex ultrasound right upper extremity Comparison: US/SR - US VENOUS DUPLEX UE RT - 11/22/24 12:44 EST Findings: There is residual thrombus within the anterior brachial vein. The right subclavian and axillary veins now appear to be patent without thrombus. The right internal jugular, basilic, radial and ulnar veins are patent. The right cephalic vein was not well-visualized. IMPRESSION: 1. Interval improvement in deep venous thrombosis of the right upper extremity. Residual thrombus involving a portion of the anterior brachial vein. This document has been electronically signed by: Ricarda Goins MD on 12/23/2024 18:14:04
== END 2024-12-23 16:51 | disposition home or self-care (01) ==
LOC: HO.US 16:50
PROVIDERS: PCP Family Medicine; Visit Provider Nurse Practitioner Family
DX: I82.621 Acute embolism and thrombosis of deep veins of right upper extremity (principal)
CPT/HCPCS: 93971

== ENCOUNTER → 2024-12-23 16:51 | Outpatient (BNV) | payer OTHER, SELFPAY | PROVIDERS: PCP Family Medicine; Visit Provider Radiology Diagnostic Radiology | DX: I82.621 Acute embolism and thrombosis of deep veins of right upper extremity (principal) | CPT/HCPCS: 93971 ==

== ENCOUNTER 2024-12-26 14:44 | Outpatient (REF) | payer OTHER, SELFPAY ==
[2024-12-26 15:22] LABS: MANUAL DIFF FLAG NO
[2024-12-26 15:52] LABS: Basophils Absolute Auto 0.1 X10*3/uL (0.0-0.2); Basophils Percent Auto 0.9 % (0-2); Eosinophils Absolute Auto 0.3 X10*3/uL (0.0-0.4); Eosinophils Percent Auto 5.1 % (0-4); Hematocrit 38.9 % (37.0-47.0); Hemoglobin 12.4 g/dl (12.0-16.0); Imm Gran Abs Auto 0.01 X10*3/uL (0.00-0.03); Imm Gran Pct Auto 0.2 % (0.0-0.4); Lymphocytes Absolute Auto 1.9 X10*3/uL (1.2-4.9); Lymphocytes Percent Auto 35.1 % (20-40); Mean Corpuscular HGB Conc 31.9 g/dl (31.0-35.0); Mean Corpuscular Hemoglobin 29.6 pg (27.0-33.0); Mean Corpuscular Volume 92.8 fL (80.0-98.0); Mean Platelet Volume 9.7 fL (9.4-12.3); Monocytes Absolute Auto 0.6 X10*3/uL (0.1-1.2); Monocytes Percent Auto 11.3 % (2-11); Neutrophils Absolute Auto 2.6 x10*3/uL (2.0-8.3); Neutrophils Percent Auto 47.4 % (45-73); Platelet Count 252 X10*3/uL (160-400); Red Blood Count 4.19 X10*6/uL (4.20-5.50); Red Cell Distribution Width 13.4 % (11.0-16.0); White Blood Count 5.5 X10*3/uL (4.8-10.8)
[2024-12-26 16:02] LABS: D Dimer High Sensitivity < 150 NG/ML
[2024-12-26 16:19] LABS: Alanine Aminotransferase 25 U/L (0-31); Albumin Level 3.8 g/dL (3.5-5.0); Anion Gap 10 (12-20); Aspartate Amino Transferase 30 U/L (5-31); Bilirubin Total 0.3 mg/dL (0.0-1.0); Blood Urea Nitrogen 23 mg/dL (9-16); C Reactive Protein < 0.04 mg/dL (< or = 0.50); Calcium 9.2 mg/dL (8.4-10.2); Carbon Dioxide 29 mmol/L (22-29); Chloride 106 mmol/L (96-108); Estimated Glomerular Filt Rate > 60; Glucose Random 106 mg/dL (60-115); Potassium 3.7 mmol/L (3.3-5.1); Sodium 141 mmol/L (135-145); Total Protein 7.5 g/dL (6.5-8.0)
[2024-12-26 17:34] LABS: Alkaline Phosphatase 91 U/L (39-117)
[2024-12-28 13:13] LABS: Prot Elec - Albumin 3.9 g/dL (3.8-4.8); Prot Elec - Alpha1 0.2 g/dL (0.2-0.3); Prot Elec - Alpha2 0.6 g/dL (0.5-0.9); Prot Elec - Beta 1 0.4 g/dL (0.4-0.6); Prot Elec - Beta 2 0.4 g/dL (0.2-0.5); Prot Elec - Gamma 1.2 g/dL (0.8-1.7); Prot Elec - Total Protein 6.8 g/dL (6.1-8.1)
== END 2024-12-26 14:45 | disposition home or self-care (01) ==
LOC: HO.LAB 14:44
PROVIDERS: Internal Medicine Endocrinology, Diabetes & Metabolism; Absent Provider Internal Medicine Gastroenterology; PCP Family Medicine; Visit Provider Internal Medicine Medical Oncology
DX: K50.90 Crohn's disease, unspecified, without complications (principal); M81.0 Age-related osteoporosis without current pathological fracture; I82.621 Acute embolism and thrombosis of deep veins of right upper extremity
CPT/HCPCS: 36415; 80053; 84165; 85025; 85379; 86140; 86335

== ENCOUNTER 2024-12-28 10:36 | Outpatient (AMB) | payer OTHER, SELFPAY ==
--- NOTE | 2024-12-28 10:37 | A.OFFVIS_ITS ---
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 Durga Altamirano/Abn echo Intake Note: New patient with ekg dx abnormal echo c/o chest presser at times Freelance Web Designer Required: No Clinical Molecular Geneticist: Clinical Molecular Geneticist Present Accompanied by: Daughter Allergies levofloxacin [From LEVAQUIN] Allergy (Severe, Verified 12/22/24 14:02) Severe itching acetaminophen [From TYLENOL] Allergy (Intermediate, Verified 12/22/24 14:02) Itching epinephrine [EPINEPHRINE] Allergy (Intermediate, Verified 12/22/24 14:02) Tachycardia Penicillins [PENICILLINS] Allergy (Intermediate, Verified 12/22/24 14:02) Itching and hives diclofenac [DICLOFENAC] Allergy (Unknown, Verified 12/22/24 14:02) Hives meperidine [Demerol] Allergy (Unknown, Verified 12/22/24 14:02) Rash penicillin V Allergy (Unknown, Verified 12/22/24 14:02) Rash procaine [From NOVOCAIN] Allergy (Unknown, Verified 12/22/24 14:02) Unknown feathers Allergy (Verified 12/22/24 14:02) Itching wool Allergy (Verified 12/22/24 14:02) Itching Sulfa (Sulfonamide Antibiotics) [SULFA (SULFONAMIDE ANTIBIOTICS)] Adverse Reaction (Intermediate, Verified 12/22/24 14:02) Nausea doxycycline Adverse Reaction (Verified 12/22/24 14:02) Stomach Upset Medication List - Last Reconciled 12/28/24 by Sammy Wilkes MD adalimumab-adaz 40 mg (0.4 mL) subcut Q2W 4 weeks albuterol sulfate 90 mcg/actuation 2 puffs inhalation Q6H PRN apixaban (Eliquis) 5 mg PO BID budesonide DR-ER 9 mg (3 x 3 mg) PO QAM 30 days carisoprodol 350 mg PO BEDTIME celecoxib 100 mg PO BEDTIME cyclosporine 0.05% (Restasis) 1 drp ophthalmic (eye) BID folic acid 1 mg PO DAILY insulin syringe-needle U-100 (Advocate Syringes) As directed magnesium oxide 250 mg PO DAILY melatonin 10 mg PO BEDTIME methotrexate sodium (PF) 12.5 mg (0.5 mL) IM QWEEK 30 days metoclopramide HCl 5 mg PO TID montelukast 10 mg PO BEDTIME omeprazole 20 mg PO BID promethazine 25 mg PO Q8H PRN 30 days propranolol 10 mg PO NEEDED PRN thiamine HCl (vitamin B1) 100 mg PO DAILY HPI Comments Details: Alexandra was referred here for recent onset chest discomfort. She is a 74-year-old female with multiple medical problems including recent deep venous thrombosis of upper extremity for which she is on Eliquis since last few months. Says over the last many months related to a GI illness she has lost a lot of weight and as a result of blood pressure was running low. At that point time blood pressure medication which she was to be olmesartan was discontinued. Also statin therapy was discontinued. She was prior history of carotid disease which was moderate as per her, bilateral carotid disease last check about 4 years ago. Recently she has diagnose with a breast mass status undergo biopsy for possible cancer and she is very very anxious and stressed out about that. Over the last few weeks a blood pressures been significant elevated at home including systolic blood pressure to 180. Says that the lowest blood pressure at home has been 145. She is very bothered by this. She gets intermittent episode of chest pressure which can last up to half an hour. She was not sure if this is related to blood pressures she was not been measuring her blood pressure during that time but could be related to increased stress. She has not had any significant exertional symptoms. She comes for workup of this chest pain syndrome. [facility] Medical History Hypertension Mitral valve prolapse Lupus GERD (gastroesophageal reflux disease) COVID-19 long hauler Hypoglycemia Asthma Hyperlipidemia Fibromyalgia Surgical History H/O dilation and curettage History of breast surgery Leg fracture, right Social History Household Members: Spouse and Family Household Members Other:: 2 Housing: House Do you presently have visiting nurse or other home services: No Alcohol intake: never Comment: pt. refusing bed alarm . Patient Tobacco Use Status: Never used Tobacco e-Cigarette/Vaping Use: Never Used Second Hand Smoke Exposure: No Advance Directives Date on File: 10/01/24 service: No Gender identity: Female Review of Systems Const Denies chills, Denies daytime sleepiness, Denies fatigue, Denies fever(s), Denies frequent falls, Denies poor appetite, Denies snoring, Denies stops breathing during sleep, Denies weakness, Denies weight gain and Denies weight loss Eyes Denies loss of vision ENT Denies dizziness and Denies hearing loss Card Reports chest pain, Denies claudication, Denies leg edema, Denies lightheadedness, Denies palpitations, Denies dyspnea, Denies dyspnea on exertion and Denies orthopnea Resp Denies cough, Denies excessive phlegm production, Denies dyspnea, Denies dyspnea on exertion, Denies snoring and Denies wheezing GI Denies abdominal pain, Denies hematochezia, Denies change in bowel habits, Denies nausea and Denies vomiting Denies urinary frequency and Denies dysuria Musc Denies arthralgias, Denies muscle weakness, Denies numbness and Denies other (frequent falls) Skin/Breast Denies nail changes and Denies rash Neuro Denies Abnormal speech present, Denies dizziness, Denies frequent falls, Denies loss of vision, Denies memory loss, Denies numbness and Denies weakness Psych Denies depression and Denies memory loss Endo Denies fatigue and Denies palpitations Ravi/Lymph Reports easy bruising and Reports other (anemia) Aller/Immun Denies wheezing Physical Exam Vital Signs: Last Vital Signs Pulse 75 12/28/24 10:38 BP 180/80 H 12/28/24 10:38 BMI result Body Mass Index 18.9 Const General: cooperative, comfortable, no acute distress, alert, awake and anxious Nutritional Appearance: thin Orientation/consciousness: patient oriented x3 Limitations: no limitations HEENT Head: Yes normocephalic and Yes atraumatic Neck Neck: Yes trachea midline, Yes supple and Yes no JVD Resp Effort & Inspection: normal respiratory effort Auscultation: clear to auscultation bilaterally Cardio Jugular venous distension: no JVD Palpation: normal PMI Rate: regular rate Rhythm: regular rhythm Heart sounds: S1 normal heart sound present, S2 normal heart sound present, no click, no gallops, no murmurs and no rubs GI Auscultation: normal bowel sounds Skin General skin exam: no rashes or lesions noted Neuro General: patient oriented x3 and no focal motor deficits Speech: No Abnormal speech present Extrem General: Yes no clubbing, cyanosis or edema Psych Affect: Anxious affect present Office Procedures EKG Details: EKG shows normal sinus rhythm normal EKG [id number], Complete Assessment & Plan Assessment & Plan (1) Chest pain: Code(s): R07.9 - Chest pain, unspecified Category: Medical Plan: Patient was recurrent chest pressure syndrome retrosternal with significant risk factors including diabetes with markedly labile blood pressure with prior history of carotid disease. She was high risk for underlying obstructive coronary artery disease. However baseline EKGs normal. Once a blood pressure is better control will pursue exercise treadmill stress test to evaluate for myocardial ischemia exercise capacity. If this is nondiagnostic may need further imaging testing. Possible other etiology for chest pain syndrome appear stress-induced, coronary vaso spasm again stress-induced and/or related to her significantly elevated blood pressure. Will obtain echocardiogram to evaluate LV systolic and diastolic function to evaluate for hypertensive heart disease as well as pulmonary hypertension. These tests will be scheduled in near future. Given her bilateral carotid disease and multiple risk factors, I would also consider pursuing carotid duplex to assess for progressive carotid disease as she is having some neurologic symptoms. I would strongly recommend to restart her statin therapy to target goal LDL less than 70 mg/dL. (2) Uncontrolled hypertension: Code(s): I10 - Essential (primary) hypertension Category: Medical Plan: Uncontrolled hypertension in this elderly woman may have component of autonomic dysfunction with labile hypotension related to longstanding diabetes as well as diffuse atherosclerotic vascular disease. Her recent increased stress is probably a significant component in her significantly elevated blood pressure recently. However with this will need to be treated to reduce long-term complication. Have taken the liberty to restart olmesartan but at a lower dose of 10 mg daily. Advised to monitor blood pressure at home and maintain a log. Follow up in 1 week time for blood pressure check in the office along with calibration of her home blood pressure medications. Stress mitigation strategies was advice. Low-salt diet was discussed. It is possible that she could have significant orthostatic response to this regimen given her labile blood pressure. Advise orthostatic precautions. Advised to maintain adequate hydration. Follow up in the clinic in 6 weeks time after all the testing. Thank you for allowing me to partake in his care Orders: Orders CA stress test 10 Days R07.9 - Chest pain, unspecified US carotid duplex BI Today I65.29 - Occlusion and stenosis of unspecified carotid artery CA echo transthoracic complete Today I10 - Essential (primary) hypertension US renal doppler Today I10 - Essential (primary) hypertension Medications: New olmesartan (Benicar) 10 mg (1/2 x 20 mg) PO DAILY 30 tabs 5RF Coding Level of Care Code New Pt Level 4 (86991) Complex EM visit Add On G2211 Diagnoses Chest pain R07.9 Uncontrolled hypertension I10 CPT Codes EKG - CPT: 04154-[id number], Complete ([id number])
[2024-12-28 10:38] VITALS: BP 180/80; PULSE 75; BMI 18.9
== END 2024-12-28 11:30 | disposition home or self-care (01) ==
LOC: HO.HCS 10:37
PROVIDERS: PCP Family Medicine; Visit Provider Internal Medicine Cardiovascular Disease
DX: R07.9 Chest pain, unspecified (principal); I10 Essential (primary) hypertension
CPT/HCPCS: 93010; 99214

== ENCOUNTER → 2024-12-28 10:36 | Outpatient (BNVA) | payer OTHER, SELFPAY | PROVIDERS: PCP Family Medicine; Visit Provider Internal Medicine Cardiovascular Disease | DX: R07.9 Chest pain, unspecified (principal); I10 Essential (primary) hypertension | CPT/HCPCS: 93005 ==

== ENCOUNTER 2025-01-03 11:20 | Outpatient (AMB) | payer OTHER, SELFPAY ==
--- NOTE | 2025-01-03 11:21 | A.OFFVIS_ITS ---
Vital Signs 3 01/03/25 11:30 Height 5 ft 2 in Weight 105 lb BMI 19.2 BP 180/86 H Blood Pressure Location Lt brachial Position Sitting Pulse 77 Intake Visit Reasons: (R) sterotactic bx for calcif abd mammo Intake Note: Patient is seen in office for stereo biopsy CONSULT right breast for calcifications @ [facility]. 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 Sql Programmer: Sql Programmer Present Accompanied by: Daughter Allergies levofloxacin [From LEVAQUIN] Allergy (Severe, Verified 01/03/25 11:32) Severe itching acetaminophen [From TYLENOL] Allergy (Intermediate, Verified 01/03/25 11:32) Itching epinephrine [EPINEPHRINE] Allergy (Intermediate, Verified 01/03/25 11:32) Tachycardia Penicillins [PENICILLINS] Allergy (Intermediate, Verified 01/03/25 11:32) Itching and hives diclofenac [DICLOFENAC] Allergy (Unknown, Verified 01/03/25 11:32) Hives meperidine [Demerol] Allergy (Unknown, Verified 01/03/25 11:32) Rash penicillin V Allergy (Unknown, Verified 01/03/25 11:32) Rash procaine [From NOVOCAIN] Allergy (Unknown, Verified 01/03/25 11:32) Unknown feathers Allergy (Verified 01/03/25 11:32) Itching wool Allergy (Verified 01/03/25 11:32) Itching Sulfa (Sulfonamide Antibiotics) [SULFA (SULFONAMIDE ANTIBIOTICS)] Adverse Reaction (Intermediate, Verified 01/03/25 11:32) Nausea doxycycline Adverse Reaction (Verified 01/03/25 11:32) Stomach Upset Medication List - Last Reconciled 01/03/25 by Carrington Bush MD adalimumab-adaz 40 mg (0.4 mL) subcut Q2W 4 weeks albuterol sulfate 90 mcg/actuation 2 puffs inhalation Q6H PRN apixaban (Eliquis) 5 mg PO BID budesonide DR-ER 9 mg (3 x 3 mg) PO QAM 30 days carisoprodol 350 mg PO BEDTIME celecoxib 100 mg PO BEDTIME cyclosporine 0.05% (Restasis) 1 drp ophthalmic (eye) BID folic acid 1 mg PO DAILY insulin syringe-needle U-100 ([facility] Syringes) As directed magnesium oxide 250 mg PO DAILY melatonin 10 mg PO BEDTIME methotrexate sodium (PF) 12.5 mg (0.5 mL) IM QWEEK 30 days metoclopramide HCl 5 mg PO TID montelukast 10 mg PO BEDTIME olmesartan (Benicar) 10 mg (1/2 x 20 mg) PO DAILY omeprazole 20 mg PO BID promethazine 25 mg PO Q8H PRN 30 days propranolol 10 mg PO NEEDED PRN thiamine HCl (vitamin B1) 100 mg PO DAILY HPI Comments Details: 74-year-old female patient presenting with a recent screening mammogram performed on 11/02/2024 with a subsequent diagnostic mammogram performed on 12/09/2024 which revealed a new grouped coarse heterogeneous calcifications in the upper outer breast. Stereotactic guided core biopsy is recommended for the suspicious findings (BI-RADS 4). She reports a previous history of stereotactic core biopsy and excision of fibroadenoma of the left breast as a teenager. She denies any atypia or malignancy in her previous biopsies. Her menarche was age 11 and she is . Her 1st child was born when she was 32 years old. Menopause was at 60. She reports being on a short course of estrogen but did not like the way it made her feel and stopped it. Family history is significant for 2 paternal aunts with breast cancer 1 of the age of 40 in the 2nd of the age of 80. Neither 1 underwent genetic testing. There is no family history of ovarian cancer. She does report Ashkenazi Gnosticist heritage. [facility] Medical History Hypertension Mitral valve prolapse Lupus GERD (gastroesophageal reflux disease) COVID-19 long hauler Hypoglycemia Asthma Hyperlipidemia Fibromyalgia Surgical History H/O dilation and curettage History of breast surgery Leg fracture, right Family History Paternal Aunt Breast CA Paternal Aunt Breast CA Social History Household Members: Spouse and Family Household Members Other:: 2 Housing: House Do you presently have visiting nurse or other home services: No Alcohol intake: never Comment: pt. refusing bed alarm . Patient Tobacco Use Status: Never used Tobacco e-Cigarette/Vaping Use: Never Used Second Hand Smoke Exposure: No Advance Directives Date on File: 10/01/24 service: No Gender identity: Female Female Reproductive History Menstrual Age of Menarche: 12 Age of menopause: 60 Total pregnancies: 4 Number of Living Children: 1 Review of Systems Const All systems reviewed & are unremarkable except as noted in HPI and below Physical Exam Vital Signs: Last Vital Signs Pulse 77 01/03/25 11:30 BP 180/86 H 01/03/25 11:30 BMI result Body Mass Index 19.2 Const General: cooperative and no acute distress Nutritional Appearance: well nourished Orientation/consciousness: patient oriented x3 Limitations: no limitations HEENT Head: Yes normocephalic and Yes atraumatic Ears: hearing grossly normal bilaterally Chest Other: Diffuse breast tenderness bilaterally Left breast: No skin change, no nipple retraction, no nipple discharge, no palpable mass, no enlarged lymph nodes. Right breast: No skin change, no nipple retraction, no nipple discharge, no palpable mass, no enlarged lymph nodes Chest/axillae images: 2 1. Previous incision at the 03:00 o'clock location Resp Effort & Inspection: normal respiratory effort, no audible wheezes, no cough and no respiratory distress Cardio Jugular venous distension: no JVD GI Inspection: Yes normal to inspection Skin Other: Warm, dry, no rash Neuro General: patient oriented x3 Extrem General: Yes no clubbing, cyanosis or edema Results Reviewed Results Reviewed: Right breast upper outer quadrant calcifications: Assessment & Plan Assessment & Plan (1) Abnormal mammogram of right breast: Code(s): R92.8 - Other abnormal and inconclusive findings on diagnostic imaging of breast Category: Medical Plan 74-year-old female patient presenting with a recent screening mammogram which revealed a cluster of calcifications in the right breast upper outer quadrant felt to be suspicious for malignancy. She was scheduled for a stereotactic guided core biopsy on 01/05/2025 at the [facility]. She has had previous breast biopsies which were benign including a previous stereotactic biopsy. Her family history is significant for 2 paternal aunts with breast cancer. Examination today revealed diffuse breast tenderness but no palpable suspicious areas in either breast and no enlarged lymph nodes. I recommended the patient return in 1 week to review the pathology results and discuss treatment options as necessary. She expressed understanding and agrees with the plan. Coding Level of Care Code New Pt Level 4 (80739) Diagnoses Abnormal mammogram of right breast R92.8
[2025-01-03 11:30] VITALS: BP 180/86; PULSE 77; BMI 19.2
== END 2025-01-03 11:55 | disposition home or self-care (01) ==
LOC: HO.HGS 11:21
PROVIDERS: PCP Family Medicine; Visit Provider Surgery
DX: R92.8 Other abnormal and inconclusive findings on diagnostic imaging of breast (principal)
CPT/HCPCS: 99204

== ENCOUNTER → 2025-01-05 09:00 | Outpatient (BNV) | payer OTHER, SELFPAY | PROVIDERS: PCP Family Medicine; Visit Provider Internal Medicine | DX: N60.21 Fibroadenosis of right breast (principal); R92.1 Mammographic calcification found on diagnostic imaging of breast | CPT/HCPCS: 19081 ==

== ENCOUNTER 2025-01-05 09:18 | Outpatient (REF) | payer OTHER, SELFPAY ==
--- NOTE | ~2025-01-05 | MM_ITS ---
EXAMINATION: STEREOTACTICALLY-GUIDED RIGHT BREAST BIOPSY CLINICAL INFORMATION: Grouped calcifications in the upper outer right breast. COMPARISON: [facility] on PACS. INFORMED CONSENT: After the details of the procedure, as well as the risks (including, but not limited to, bleeding, hematoma formation, and infection), benefits and alternatives (including doing nothing, short-interval follow up, and surgery) to the procedure were explained to the patient in detail and all of her questions were answered, informed written consent was obtained. TECHNIQUE/FINDINGS: A timeout was performed. The lesion intended for biopsy was identified stereotactically and targeted. The skin of the right breast was then cleansed with sterile solution. Using stereotactic guidance, aseptic technique, and 1% lidocaine with and without epinephrine for local anesthesia, a total of 12 cores were obtained through the targeted area with a 9-gauge vacuum-assisted Eviva core biopsy device from a superior approach. Specimen radiography reveals the targeted calcifications in the sampled tissue. At the completion of tissue sampling, a single mini Cork-shaped metallic clip was deposited at the biopsy site. Adequate sampling was achieved. No postprocedure mammogram was performed as the patient was in too much pain and had a large hematoma and declined at this time. Postprocedure mammogram can be performed pending pathology. The patient tolerated the procedure well and, after assuring adequate hemostasis, was discharged in good condition after reviewing postbiopsy breast care instructions. Final pathology results are pending. MM/MM stereotactic biopsy RT IMPRESSION: 1. Uncomplicated stereotactically-guided core biopsy of the right breast. The patient was feeling pain and declined postprocedure mammogram. Pending pathology postprocedure mammogram can be performed. 2. Final pathology results are pending. A separate report with final recommendations will be issued once these results are made available. Electronically signed by: Lara Mane DO 01/05/2025 12:41 PM EDT
[2025-01-05] MEDS: Lidocaine HCl 1 % 20 ML VIAL 15 ML SUBCUT (11:42)
[2025-01-05] MEDS: Sodium Bicarbonate 8.4% 50 MEQ/50 ML VIAL SUBCUT (11:43)
== END 2025-01-05 09:19 | disposition home or self-care (01) ==
LOC: HO.MAMMO 09:18
PROVIDERS: PCP Family Medicine; Visit Provider Family Medicine
DX: Z12.31 Encounter for screening mammogram for malignant neoplasm of breast (principal); R92.1 Mammographic calcification found on diagnostic imaging of breast; R92.8 Other abnormal and inconclusive findings on diagnostic imaging of breast
CPT/HCPCS: 19081; 88305; A4648; J2003

== ENCOUNTER → 2025-01-06 14:06 | Outpatient (BNVA) | payer OTHER, SELFPAY | PROVIDERS: PCP Family Medicine; Visit Provider Internal Medicine Cardiovascular Disease ==

== ENCOUNTER 2025-01-12 11:39 | Outpatient (AMB) | payer OTHER, SELFPAY ==
--- NOTE | 2025-01-12 11:39 | MHC.OFFVIS ---
Vital Signs 01/12/25 11:40 Height 5 ft 2 in Weight 104 lb 0.931 oz BMI 19.0 Intake Visit Reasons: 1wk (R) st bx for calcif abd mammo Intake Note: Patient is seen in office for stereo biopsy RESULTS, right breast for calcifications @ [facility]. 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 Accompanied by: Daughter Allergies levofloxacin [From LEVAQUIN] Allergy (Severe, Verified 01/12/25 11:40) Severe itching acetaminophen [From TYLENOL] Allergy (Intermediate, Verified 01/12/25 11:40) Itching epinephrine [EPINEPHRINE] Allergy (Intermediate, Verified 01/12/25 11:40) Tachycardia Penicillins [PENICILLINS] Allergy (Intermediate, Verified 01/12/25 11:40) Itching and hives diclofenac [DICLOFENAC] Allergy (Unknown, Verified 01/12/25 11:40) Hives meperidine [Demerol] Allergy (Unknown, Verified 01/12/25 11:40) Rash penicillin V Allergy (Unknown, Verified 01/12/25 11:40) Rash procaine [From NOVOCAIN] Allergy (Unknown, Verified 01/12/25 11:40) Unknown feathers Allergy (Verified 01/12/25 11:40) Itching wool Allergy (Verified 01/12/25 11:40) Itching Sulfa (Sulfonamide Antibiotics) [SULFA (SULFONAMIDE ANTIBIOTICS)] Adverse Reaction (Intermediate, Verified 01/12/25 11:40) Nausea doxycycline Adverse Reaction (Verified 01/12/25 11:40) Stomach Upset HPI Comments Details: 74-year-old female patient presenting with a recent screening mammogram performed on 11/02/2024 with a subsequent diagnostic mammogram performed on 12/09/2024 which revealed a new grouped coarse heterogeneous calcifications in the upper outer breast. Stereotactic guided core biopsy is recommended for the suspicious findings (BI-RADS 4). She reports a previous history of stereotactic core biopsy and excision of fibroadenoma of the left breast as a teenager. She denies any atypia or malignancy in her previous biopsies. Her menarche was age 11 and she is . Her 1st child was born when she was 32 years old. Menopause was at 60. She reports being on a short course of estrogen but did not like the way it made her feel and stopped it. Family history is significant for 2 paternal aunts with breast cancer 1 of the age of 40 in the 2nd of the age of 80. Neither 1 underwent genetic testing. There is no family history of ovarian cancer. She does report Ashkenazi Hoahaoism heritage. She returns today following stereotactic guided biopsy on 01/05/2025. Pathology revealed breast tissue with fibroadenoma it was change and coarse calcifications; background fibrocystic change; no atypia or malignancy identified. Calcifications are also noted involving a large blood vessel and focally in fat. The patient does report a large amount of bruising in her right breast following the biopsy. This seems to be resolving currently. [facility] Medical History Hypertension Mitral valve prolapse Lupus GERD (gastroesophageal reflux disease) COVID-19 long hauler Hypoglycemia Asthma Hyperlipidemia Fibromyalgia Surgical History H/O dilation and curettage History of breast surgery Leg fracture, right Family History Paternal Aunt Breast CA Paternal Aunt Breast CA Social History Household Members: Spouse and Family Household Members Other:: 2 Housing: House Do you presently have visiting nurse or other home services: No Alcohol intake: never Comment: pt. refusing bed alarm . Patient Tobacco Use Status: Never used Tobacco e-Cigarette/Vaping Use: Never Used Second Hand Smoke Exposure: No Advance Directives Date on File: 10/01/24 service: No Gender identity: Female Female Reproductive History Menstrual Age of Menarche: 12 Review of Systems Const All systems reviewed & are unremarkable except as noted in HPI and below Physical Exam Vital Signs: BMI result Body Mass Index 19.0 Const General: cooperative and no acute distress Nutritional Appearance: well nourished Orientation/consciousness: patient oriented x3 Limitations: no limitations HEENT Head: Yes normocephalic and Yes atraumatic Ears: hearing grossly normal bilaterally Chest Other: Biopsy site in the right breast is clean and intact. There is a large amount of ecchymosis involving the lower quadrants of the breast consistent with postoperative hematoma. No large fluid collections were identified. Resp Effort & Inspection: normal respiratory effort, no audible wheezes, no cough and no respiratory distress Cardio Jugular venous distension: no JVD GI Inspection: Yes normal to inspection Skin Other: Warm, dry, no rash Neuro General: patient oriented x3 Extrem General: Yes no clubbing, cyanosis or edema Assessment & Plan Assessment & Plan (1) Abnormal mammogram of right breast: Code(s): R92.8 - Other abnormal and inconclusive findings on diagnostic imaging of breast Category: Medical Plan 74-year-old female patient presenting with a recent screening mammogram which revealed a cluster of calcifications in the right breast upper outer quadrant felt to be suspicious for malignancy. She subsequently underwent stereotactic guided core biopsy on 01/05/2025. Pathology revealed breast tissue with fibroadenomatous change and coarse calcifications. No atypia or malignancy was identified. She tolerated the procedure well but did develop some bruising postprocedure. I provided her with a copy of the pathology report. Routine follow-up mammograms in 1 year I recommended. She is welcome to call for any new concerns. Coding Level of Care Code Est Pt Level 3 (85004) Diagnoses Abnormal mammogram of right breast R92.8
[2025-01-12 11:40] VITALS: BMI 19.0
== END 2025-01-12 11:54 | disposition home or self-care (01) ==
LOC: HO.HGS 11:39
PROVIDERS: PCP Family Medicine; Visit Provider Surgery
DX: R92.8 Other abnormal and inconclusive findings on diagnostic imaging of breast (principal)
CPT/HCPCS: 99213

== ENCOUNTER 2025-01-25 14:34 | Inpatient (IN) | payer OTHER, SELFPAY ==
[2025-01-25] VITALS (7 sets, daily range): BP systolic 99–114; BP diastolic 63–65; PULSE 91–99; RESP 16–18; TEMP 36.4–37.3; O2SAT 98–99; BMI 17.9
--- NOTE | ~2025-01-25 | XR_ITS ---
EXAMINATION: XR CHEST CLINICAL INFORMATION: pain COMPARISON: 09/30/2024. TECHNIQUE: 2 views of the chest were obtained. FINDINGS: The cardiac, hilar, and mediastinal contours are normal. The lungs are mildly hyperaerated, however clear bilaterally. There is no pneumothorax or pleural effusion. There is no focal osseous or soft tissue abnormality. There are cholecystectomy clips. XR/XR chest 2V IMPRESSION: No active pulmonary disease. Electronically signed by: Ebenezer Alvarado MD 01/25/2025 04:11 PM EDT
--- NOTE | ~2025-01-25 | CT_ITS ---
CLINICAL HISTORY: [place], right flank pain CT abdomen and pelvis without contrast Comparison: CT/MT/SR - CT ABDOMEN PELVIS WO IV CON - 08/24/24 17:05 EST Findings: No consolidation or effusion. Cholecystectomy. No abnormal biliary ductal dilatation. Normal liver, pancreas, spleen, and adrenal glands. Unremarkable kidneys, ureters, and urinary bladder. Bruner-colonic distribution liquid stool. No findings of bowel obstruction. No aortic aneurysm. No acute or suspicious bone abnormality. IMPRESSION: No acute findings. Pancolonic distribution of liquid stool suggestive of diarrheal illness. Correlate for gastroenteritis. This document has been electronically signed by: Forest Robertson MD on 01/25/2025 19:18:34
--- NOTE | 2025-01-25 15:00 | ED.GENADULT ---
HPI - General Adult General Chief complaint: General Medical Stated complaint: DR blackburn referred for worsening of crones Time Seen by Provider: 01/25/25 17:15 Source: patient Limitations: no limitations History of Present Illness ED Provider: Lobo Brown DO HPI narrative: 74-year-old female with past medical history of Crohn's disease, hypertension, DVT on Eliquis sent in by Dr. Blackburn (hand cutter) due to right-sided flank pain and nausea. Patient states she had large quantities and frequent episodes of diarrhea over the past couple of weeks with weight loss that finally improved 2 days ago when she started back up on her budesonide (missed about a week due to prescribing difficulties). However, she has had constant right-sided flank pain without radiation without clear mitigating or exacerbating factors. She also reports feeling severely dehydrated and has not voided any urine since yesterday. She states she tried earlier and was unable to do so. No reports of blood in the stool. No fevers or chills. Clarified with patient and she states not have pleuritic chest pain or dyspnea but is reporting mildly improving but persistent pain over the right breast where she recently had a biopsy. Medications include propranolol, budesonide 3 mg t.i.d., olmesartan, apixaban, promethazine, omeprazole, and loperamide Related Data Home Medications ?Medication ?Instructions ?Recorded ?Confirmed albuterol sulfate 90 mcg/actuation 2 puff inhalation Q6H PRN 06/07/23 01/03/25 aerosol inhaler Shortness Of Breath carisoprodol 350 mg tablet 350 mg PO BEDTIME 06/07/23 01/03/25 montelukast 10 mg tablet 10 mg PO BEDTIME 06/07/23 01/03/25 omeprazole 20 mg capsule,delayed 20 mg PO BID 06/07/23 01/03/25 release cyclosporine 0.05 % eye drops in a 1 drp ophthalmic (eye) BID 05/13/24 01/03/25 dropperette (Restasis) propranolol 10 mg tablet 10 mg PO NEEDED PRN anxiety 05/13/24 01/03/25 melatonin 10 mg tablet 10 mg PO BEDTIME 05/21/24 01/03/25 magnesium oxide 250 mg PO DAILY 07/21/24 01/03/25 celecoxib 100 mg capsule 100 mg PO BEDTIME 09/30/24 01/03/25 metoclopramide HCl 5 mg tablet 5 mg PO TID 10/01/24 01/03/25 apixaban 5 mg tablet (Eliquis) 5 mg PO BID 11/17/24 01/03/25 thiamine HCl (vitamin B1) 100 mg 100 mg PO DAILY 11/17/24 01/03/25 tablet Previous Rx's ?Medication ?Instructions ?Recorded adalimumab-adaz 40 mg/0.4 mL 40 mg (0.4 mL) subcut Q2W 4 weeks 11/08/24 subcutaneous pen injector #0.8 mL insulin syringe-needle U-100 0.5 #10 ea 11/17/24 mL 31 gauge x 5/16 (Advocate Syringes) olmesartan 20 mg tablet (Benicar) 10 mg (1/2 x 20 mg) PO DAILY #30 12/28/24 tabs budesonide 3 mg 9 mg (3 x 3 mg) PO QAM 30 days #90 01/23/25 capsule,delayed,extended release ea folic acid 1 mg tablet 1 mg PO DAILY 90 days #90 tabs 01/23/25 methotrexate sodium (PF) 25 mg/mL 12.5 mg (0.5 mL) IM QWEEK 30 days 01/23/25 injection solution #2.5 mL promethazine 25 mg tablet 25 mg PO Q8H PRN nausea and 01/23/25 vomiting 30 days #60 tabs Allergies Allergy/AdvReac Type Severity Reaction Status Date / Time levofloxacin [From LEVAQUIN] Allergy Severe Severe Verified 01/25/25 15:03 itching acetaminophen [From TYLENOL] Allergy Intermediate Itching Verified 01/25/25 15:03 epinephrine [EPINEPHRINE] Allergy Intermediate Tachycardia Verified 01/25/25 15:03 Penicillins [PENICILLINS] Allergy Intermediate Itching Verified 01/25/25 15:03 and hives diclofenac [DICLOFENAC] Allergy Unknown Hives Verified 01/25/25 15:03 meperidine [Demerol] Allergy Unknown Rash Verified 01/25/25 15:03 penicillin V Allergy Unknown Rash Verified 01/25/25 15:03 procaine [From NOVOCAIN] Allergy Unknown Unknown Verified 01/25/25 15:03 feathers Allergy Itching Verified 01/25/25 15:03 wool Allergy Itching Verified 01/25/25 15:03 Sulfa (Sulfonamide AdvReac Intermediate Nausea Verified 01/25/25 15:03 Antibiotics) [SULFA (SULFONAMIDE ANTIBIOTICS)] doxycycline AdvReac Stomach Verified 01/25/25 15:03 Upset Review of Systems Review of Systems: Yes all other systems are reviewed and are negative [facility] Past Medical History Medical History Hypertension Mitral valve prolapse Lupus GERD (gastroesophageal reflux disease) COVID-19 long hauler Hypoglycemia Asthma Hyperlipidemia Fibromyalgia Surgical History H/O dilation and curettage History of breast surgery Leg fracture, right Family History Family History Paternal Aunt Breast CA Paternal Aunt Breast CA Social History Social History Household Members: Spouse and Family Household Members Other:: 2 Housing: House Do you presently have visiting nurse or other home services: No Alcohol intake: never Comment: pt. refusing bed alarm . Patient Tobacco Use Status: Never used Tobacco e-Cigarette/Vaping Use: Never Used Second Hand Smoke Exposure: No Advance Directives: Yes Advance Directives on File: Yes Advance Directives Date on File: 10/01/24 service: No Gender identity: Female Physical Exam ED Vital Signs: Vital Signs - 24 hr 01/25/25 14:59 01/25/25 18:07 01/25/25 18:45 Temperature 97.5 F 98.3 F Pulse Rate 99 91 Respiratory Rate 18 18 16 Blood Pressure 99/64 103/63 Pulse Oximetry 99 99 Oxygen Delivery Method Room Air Room Air 01/25/25 20:12 01/25/25 20:28 01/25/25 21:25 Temperature 99.2 F Pulse Rate 94 Respiratory Rate 16 16 18 Blood Pressure 114/65 Pulse Oximetry 98 Oxygen Delivery Method Room Air 01/25/25 22:06 01/26/25 00:32 Temperature Pulse Rate 97 Respiratory Rate 16 16 Blood Pressure 110/58 L Pulse Oximetry 96 Oxygen Delivery Method Room Air BMI result Body Mass Index 17.9 Constitutional: ?Alert, oriented, speaking in full sentences, cachectic, weak appearing, appears to be in some discomfort HEENT: ?Normocephalic, atraumatic. ?Dry mucous membranes Eyes: ?PERRL, EOMI Neck: ?Supple, nontender Chest: ?Right breast shows ecchymosis with mild induration and tenderness to palpation without warmth, discharge or fluctuance appreciated Respiratory: ?Lungs clear to auscultation, no increased work of breathing Cardio: ?Regular rate and rhythm, no murmur, 2+ radial and DP pulses symmetrically GI: ?Soft, nondistended, suprapubic tenderness to palpation with voluntary guarding Back: ?Normal range of motion, bilateral CVA tenderness to palpation and percussion Skin: ?No rash, no lesions Neuro: ?Alert and oriented to person, place and time, moves all 4 extremities, no focal deficits Extremities: ?No swelling or tenderness, full range of motion Psych: ?Calm, alert and cooperative, appropriate behavior Course Course Course Narrative: RME, this is a rapid medical exam performed by Christiano Lagos please refer to primary provider for complete H&P- 74 year old female presents for evaluation of abdominal pain and diarrhea. She follows with Dr Blackburn for Crohn's disease. She also complains of pleuritic chest pain. Plan for labs, ekg Medications Administered Generic Name Dose Route Start Last Admin Trade Name Freq PRN Reason Stop Dose Admin Sodium Bicarbonate 150 meq/ 1,000 mls @ 150 mls/hr 01/25/25 20:00 01/26/25 05:30 Dextrose IV Not Given .Q6H40M KARSTEN Discontinued Medications Generic Name Dose Route Start Last Admin Trade Name Freq PRN Reason Stop Dose Admin Hydrocortisone Sodium Succinate 100 mg 01/25/25 20:01 01/25/25 20:29 Hydrocortisone Sod Succ/Pf 100 Mg Vial IVPUSH 01/25/25 20:02 100 mg ONCE ONE Administration Hydromorphone HCl 0.1 mg 01/25/25 18:29 01/25/25 18:45 Hydromorphone Hcl 0.5 Mg/0.5 Ml Syringe IVPUSH 01/25/25 18:30 0.1 mg ONCE ONE Administration Protocol Hydromorphone HCl 0.25 mg 01/25/25 19:53 01/25/25 20:28 Hydromorphone Hcl 0.5 Mg/0.5 Ml Syringe IVPUSH 04/09/25 19:54 0.25 mg ONCE ONE Administration Protocol Lactated Ringer's 1,000 mls @ 999 mls/hr 01/25/25 18:30 01/25/25 22:36 Lr IV 01/25/25 20:30 Infused .Q1H1M KARSTEN Infusion Lactated Ringer's 2,000 mls @ 999 mls/hr 01/25/25 22:00 01/26/25 01:30 Lr IV 01/26/25 00:00 Infused .Q2H1M KARSTEN Infusion Sodium Bicarbonate 50 meq 01/25/25 21:53 01/25/25 22:10 Sodium Bicarbonate 8.4% 50 Meq/50 Ml Syringe IVPUSH 01/25/25 21:54 50 meq ONCE ONE Administration Medical Decision Making Medical Decision Making [facility] Narrative: This is an ill-appearing, weak appearing patient presenting with multiple symptoms including right flank pain, nausea and decreased I clarified with patient and daughter bedside and she has never had renal impairment. She has a significant elevation of creatinine today to 4.49 as well as a metabolic acidosis with a bicarb of 7 and chloride of 114. Her BUN is also elevated at 66. We will evaluate for possible obstructive uropathy. Dehydration is contributing to her renal impairment and we will start with 2 L of lactated Ringer's. We will evaluate with CT imaging for possible stone versus infection of the kidneys. She has no significant electrolyte disturbances. There is mild elevation in liver function 261 and 70, AST and ALT respectively. CK is unremarkable, no signs of rhabdomyolysis. Lipase is unremarkable, also concerning history for Crohn's flare. Patient received her steroid dose today. No signs of obstructive uropathy. No history of diabetes. At this time, is likely the patient has a severe metabolic acidosis and [place] secondary to hypovolemia. CT imaging shows evidence of gastroenteritis but no acute pathology. No signs of ureteral stone. Case reviewed with both gastroenterology and Nephrology. They agree with plan for isotonic bicarb drip. The patient received a 2 L of IV fluids and has a repeat basic metabolic panel and venous blood gas. She also received stress dose steroid with 100 mg of IV hydrocortisone. She has not had is ordered for stool studies including C diff she reports significant improvement in pain after 2 doses of hydromorphone. She is signed out to the next provider pending repeat lab work to determine level of care. I received sign-out from my colleague Dr. Brown Please see down time documentation After IV fluids, patient's bicarb improved to 14, pH 7.38, creatinine improved to 3.12. I discussed the patient with Dr. Child, patient being admitted Admission/Observation Consideration of admission/observation: Escalation of care including admission/observation considered Lab Data 01/25/25 15:38 01/26/25 00:38 Labs: Lab Results 01/25/25 01/25/25 01/25/25 Range/Units 15:38 19:55 21:28 WBC 7.5 (4.8-10.8) X10*3/uL RBC 4.98 (4.20-5.50) X10*6/uL Hgb 14.8 (12.0-16.0) g/dl Hct 44.7 (37.0-47.0) % MCV 89.8 (80.0-98.0) fL MCH 29.7 (27.0-33.0) pg MCHC 33.1 (31.0-35.0) g/dl RDW 12.8 (11.0-16.0) % Plt Count 304 (160-400) X10*3/uL MPV 11.0 (9.4-12.3) fL Immature Gran % (Auto) 0.4 (0.0-0.4) % Neut % (Auto) 81.9 H (45-73) % Lymph % (Auto) 9.2 L (20-40) % Mitchell % (Auto) 8.0 (2-11) % Eos % (Auto) 0.1 (0-4) % Baso % (Auto) 0.4 (0-2) % Lymph # (Auto) 0.7 L (1.2-4.9) X10*3/uL [place] # (Auto) 0.6 (0.1-1.2) X10*3/uL Eos # (Auto) 0.0 (0.0-0.4) X10*3/uL Baso # (Auto) 0.0 (0.0-0.2) X10*3/uL Abs Immat Gran (auto) 0.03 (0.00-0.03) X10*3/uL Absolute Neuts (auto) 6.2 (2.0-8.3) x10*3/uL Absolute Nucleated RBC 0.000 (0.0-0.012) X10*3/uL Nucleated RBC % (auto) 0.0 (0.0-0.2) /100WBC ESR 40 H (0-20) MM/HR VBG pH 7.12 L* (7.32-7.43) VBG pCO2 23 mmHg VBG pO2 60 mmHg VBG HCO3 8 L (22-26) mmol/L VBG O2 Saturation 87.0 % VBG Base Excess -19.3 mmol/L Sodium 135 135 (135-145) mmol/L Potassium 3.9 3.5 (3.3-5.1) mmol/L Chloride 114 H 115 H (96-108) mmol/L Carbon Dioxide 7 L* D 10 L* D (22-29) mmol/L Anion Gap 18 14 (12-20) BUN 66 H 66 H (9-16) mg/dL Creatinine 4.49 H* 4.04 H* (0.5-1.4) mg/dL Estim Creat Clear Calc 7.8 8.7 Estimated GFR 10 11 Random Glucose 89 104 (60-115) mg/dL Calcium 9.2 8.0 L D (8.4-10.2) mg/dL Phosphorus 8.1 H (2.7-4.5) mg/dL Magnesium 2.1 (1.6-2.6) mg/dL Total Bilirubin 0.4 (0.0-1.0) mg/dL AST 61 H (5-31) U/L ALT 70 H (0-31) U/L Alkaline Phosphatase 112 (39-117) U/L Total Creatine Kinase 19 L (26-140) U/L Troponin I High Sens 13.4 D (<3.5-17.0) ng/L C-Reactive Protein 2.42 H (< or = 0.50) mg/dL Total Protein 8.7 H (6.5-8.0) g/dL Albumin 4.1 (3.5-5.0) g/dL Lipase 43 (8-78) U/L Urine Color Urine Appearance Urine pH (5.0-9.0) Ur Specific [place] (1.005-1.025) Urine Protein (Neg-Trace) mg/dL Urine Glucose (UA) (Negative) mg/dL Urine Ketones (Negative) mg/dL Urine Blood (Negative) Urine Nitrite (Negative) Ur Leukocyte Esterase (Negative) Urine RBC (0-2) /HPF Urine WBC (0-5) /HPF Ur Squamous Epith Cells (0-2) /HPF Calcium Oxalate Crystal Urine Bacteria (None Seen) Hyaline Casts (0-2) /LPF Granular Casts Influenza Type A (PCR) NEGATIVE (Negative) Influenza Type B (PCR) NEGATIVE (Negative) RSV RNA Qual (PCR) NEGATIVE (Negative) SARS-CoV-2 RNA (RT-PCR) NEGATIVE (Negative) 01/25/25 01/26/25 01/26/25 Range/Units 22:44 00:38 00:46 WBC (4.8-10.8) X10*3/uL RBC (4.20-5.50) X10*6/uL Hgb (12.0-16.0) g/dl Hct (37.0-47.0) % MCV (80.0-98.0) fL MCH (27.0-33.0) pg MCHC (31.0-35.0) g/dl RDW (11.0-16.0) % Plt Count (160-400) X10*3/uL MPV (9.4-12.3) fL Immature Gran % (Auto) (0.0-0.4) % Neut % (Auto) (45-73) % Lymph % (Auto) (20-40) % Mitchell % (Auto) (2-11) % Eos % (Auto) (0-4) % Baso % (Auto) (0-2) % Lymph # (Auto) (1.2-4.9) X10*3/uL [place] # (Auto) (0.1-1.2) X10*3/uL Eos # (Auto) (0.0-0.4) X10*3/uL Baso # (Auto) (0.0-0.2) X10*3/uL Abs Immat Gran (auto) (0.00-0.03) X10*3/uL Absolute Neuts (auto) (2.0-8.3) x10*3/uL Absolute Nucleated RBC (0.0-0.012) X10*3/uL Nucleated RBC % (auto) (0.0-0.2) /100WBC ESR (0-20) MM/HR VBG pH 7.33 7.38 (7.32-7.43) VBG pCO2 25 23 mmHg VBG pO2 72 55 mmHg VBG HCO3 13 L 14 L (22-26) mmol/L VBG O2 Saturation 98.0 91.0 % VBG Base Excess -10.6 -9.1 mmol/L Sodium 137 (135-145) mmol/L Potassium 3.2 L (3.3-5.1) mmol/L Chloride 110 H (96-108) mmol/L Carbon Dioxide 14 L (22-29) mmol/L Anion Gap 16 (12-20) BUN 59 H (9-16) mg/dL Creatinine 3.12 H (0.5-1.4) mg/dL Estim Creat Clear Calc 11.2 Estimated GFR 15 Random Glucose 152 H (60-115) mg/dL Calcium 7.9 L (8.4-10.2) mg/dL Phosphorus (2.7-4.5) mg/dL Magnesium (1.6-2.6) mg/dL Total Bilirubin (0.0-1.0) mg/dL AST (5-31) U/L ALT (0-31) U/L Alkaline Phosphatase (39-117) U/L Total Creatine Kinase (26-140) U/L Troponin I High Sens (<3.5-17.0) ng/L C-Reactive Protein (< or = 0.50) mg/dL Total Protein (6.5-8.0) g/dL Albumin (3.5-5.0) g/dL Lipase (8-78) U/L Urine Color Yellow Urine Appearance Cloudy Urine pH 5.5 (5.0-9.0) Ur Specific [place] 1.015 (1.005-1.025) Urine Protein 30 (1+) H (Neg-Trace) mg/dL Urine Glucose (UA) Negative (Negative) mg/dL Urine Ketones 15 (Negative) mg/dL Urine Blood Negative (Negative) Urine Nitrite Negative (Negative) Ur Leukocyte Esterase Trace H (Negative) Urine RBC 0-2 (0-2) /HPF Urine WBC 0-5 (0-5) /HPF Ur Squamous Epith Cells 11-20 (0-2) /HPF Calcium Oxalate Crystal Present Urine Bacteria None Seen (None Seen) Hyaline Casts >20 (0-2) /LPF Granular Casts Present Influenza Type A (PCR) (Negative) Influenza Type B (PCR) (Negative) RSV RNA Qual (PCR) (Negative) SARS-CoV-2 RNA (RT-PCR) (Negative) Independent Interpretation I performed an independent interpretation of an: EKG Interpretation: Normal sinus rhythm at 96 beats per minute, normal axis, prolonged QT, no diagnostic ST wave abnormalities, some subtle ST depression in the anterior leads, compared to prior dated 09/30/2024, previous QTC was a shorter duration. Repeat ECG shows improved QTC, previous was likely an error due to artifact. Radiology Impression Discussion of test interpretation with radiology: I have reviewed the radiologist's reading. Critical Care Time Critical Care Time Critical Care Time: Yes Total Critical Care Time: 60 Attestation: I have personally provided critical care time. Time includes review of lab data, radiology results, discussion with consultants, and monitoring for potential decompensation. Intervention performed as documented. Discharge Plan Discharge Clinical Impression: [place] (acute kidney injury), Metabolic acidosis, Dehydration Patient Disposition: Admitted As Inpatient Prescriptions: No Action adalimumab-adaz 40 mg/0.4 mL pen injector 40 mg subcut Q2W 28 Days Qty: 0.8 3RF promethazine 25 mg tablet 25 mg PO Q8H PRN (Reason: nausea and vomiting) 30 Days Qty: 60 1RF methotrexate sodium (PF) 25 mg/mL solution 12.5 mg IM QWEEK 30 Days Qty: 2.5 3RF budesonide 3 mg capsule,delayed,extend.release 9 mg PO QAM 30 Days Qty: 90 2RF folic acid 1 mg tablet 1 mg PO DAILY 90 Days Qty: 90 1RF carisoprodol 350 mg tablet 350 mg PO BEDTIME Patient Comments: takes at midnight 0000 Rx Instructions: takes at 0000 omeprazole 20 mg capsule,delayed release(DR/EC) 20 mg PO BID Rx Instructions: TAKES AT 0630 AND 2100 montelukast 10 mg tablet 10 mg PO BEDTIME albuterol sulfate 90 mcg/actuation Hfa Aerosol Inhaler 2 puff INHALATION Q6H PRN (Reason: Shortness Of Breath) propranolol 10 mg tablet 10 mg PO NEEDED PRN (Reason: anxiety) Rx Instructions: TAKES ONLY NEEDED FOR ANXIETY cyclosporine [Restasis] 0.05 % dropperette 1 drp ophthalmic (eye) BID Rx Instructions: TAKES AT 0900 AND 2100 melatonin 10 mg Tablet 10 mg PO BEDTIME celecoxib 100 mg capsule 100 mg PO BEDTIME Rx Instructions: takes at 0000 metoclopramide HCl 5 mg Tablet 5 mg PO TID Rx Instructions: takes at 0900, 1700, 0000 magnesium oxide 250 mg magnesium tablet 250 mg PO DAILY olmesartan [Benicar] 20 mg tablet 10 mg PO DAILY Qty: 30 5RF Eliquis 5 mg tablet 5 mg PO BID thiamine HCl (vitamin B1) 100 mg tablet 100 mg PO DAILY (DME) insulin syringe-needle U-100 [Advocate Syringes] 0.5 mL 31 gauge x 5/16 syringe See Rx Instructions .Route Qty: 10 2RF Rx Instructions: As directed Print Language: Romansh
--- NOTE | 2025-01-25 15:03 | ECG_ITS ---
Test Reason : PAIN Blood Pressure : */* mmHG Vent. Rate : 96 BPM Atrial Rate : 96 BPM P-R Int : 120 ms QRS Dur : 78 ms QT Int : 370 ms P-R-T Axes : 71 21 37 degrees QTcB Int : 467 ms Normal sinus rhythm Possible Left atrial enlargement Nonspecific T wave abnormality Abnormal ECG When compared with ECG of 30-Sep-2024 13:57, ST no longer elevated in Anterolateral leads Nonspecific T wave abnormality, worse in Anterolateral leads Referred By: Chan Lagos Electronically Signed By: Luiz Moffett
[2025-01-25 15:43] LABS: MANUAL DIFF FLAG NO
[2025-01-25 16:14] LABS: Basophils Percent Auto 0.4 % (0-2); Eosinophils Percent Auto 0.1 % (0-4); Hematocrit 44.7 % (37.0-47.0); Hemoglobin 14.8 g/dl (12.0-16.0); Imm Gran Abs Auto 0.03 X10*3/uL (0.00-0.03); Imm Gran Pct Auto 0.4 % (0.0-0.4); Lymphocytes Absolute Auto 0.7 X10*3/uL (1.2-4.9); Lymphocytes Percent Auto 9.2 % (20-40); Mean Corpuscular HGB Conc 33.1 g/dl (31.0-35.0); Mean Corpuscular Hemoglobin 29.7 pg (27.0-33.0); Mean Corpuscular Volume 89.8 fL (80.0-98.0); Monocytes Absolute Auto 0.6 X10*3/uL (0.1-1.2); Neutrophils Absolute Auto 6.2 x10*3/uL (2.0-8.3); Neutrophils Percent Auto 81.9 % (45-73); Platelet Count 304 X10*3/uL (160-400); Red Blood Count 4.98 X10*6/uL (4.20-5.50); Red Cell Distribution Width 12.8 % (11.0-16.0); White Blood Count 7.5 X10*3/uL (4.8-10.8)
[2025-01-25 16:27] LABS: Erythrocyte Sedimentation Rate 40 MM/HR (0-20)
[2025-01-25 16:49] LABS: Influenza A PCR NEGATIVE (Negative); Influenza B PCR NEGATIVE (Negative); Resp Syncy Virus RNA Qual PCR NEGATIVE (Negative); SARS COV2 PCR INHOUSE NEGATIVE (Negative)
[2025-01-25 17:16] LABS: Troponin-I High Sensitivity 13.4 ng/L (<3.5-17.0)
[2025-01-25 17:18] LABS: Alanine Aminotransferase 70 U/L (0-31); Albumin Level 4.1 g/dL (3.5-5.0); Alkaline Phosphatase 112 U/L (39-117); Anion Gap 18 (12-20); Aspartate Amino Transferase 61 U/L (5-31); Bilirubin Total 0.4 mg/dL (0.0-1.0); Blood Urea Nitrogen 66 mg/dL (9-16); C Reactive Protein 2.42 mg/dL (< or = 0.50); Calcium 9.2 mg/dL (8.4-10.2); Carbon Dioxide 7 mmol/L (22-29); Chloride 114 mmol/L (96-108); Creatinine Clr Calc Pharmacy 7.8; Estimated Glomerular Filt Rate 10; Glucose Random 89 mg/dL (60-115); Lipase 43 U/L (8-78); Potassium 3.9 mmol/L (3.3-5.1); Sodium 135 mmol/L (135-145); Total Protein 8.7 g/dL (6.5-8.0)
--- NOTE | 2025-01-25 18:14 | ECG_ITS ---
Test Reason : CHECK QT Blood Pressure : */* mmHG Vent. Rate : 96 BPM Atrial Rate : 96 BPM P-R Int : 134 ms QRS Dur : 80 ms QT Int : 386 ms P-R-T Axes : 49 28 26 degrees QTcB Int : 487 ms Normal sinus rhythm Possible Left atrial enlargement Nonspecific ST and T wave abnormality Prolonged QT Abnormal ECG When compared with ECG of 25-Jan-2025 15:10, No significant change was found Referred By: Lobo Brown Electronically Signed By: Luiz Moffett
[2025-01-25] MEDS: HYDROmorphone HCl 0.5 MG/0.5 ML SYRINGE 0.1 MG IVPUSH (18:45)
[2025-01-25] MEDS: Lactated Ringers 1,000 ML 999 ML IV ×2 (18:46→20:54)
[2025-01-25 20:03] LABS: VBG Base Excess -19.3 mmol/L; VBG HCO3 8 mmol/L (22-26); VBG pCO2 23 mmHg; VBG pH 7.12 (7.32-7.43); VBG pO2 60 mmHg
[2025-01-25 20:14] LABS: Magnesium 2.1 mg/dL (1.6-2.6); Phosphorus 8.1 mg/dL (2.7-4.5)
[2025-01-25 20:20] LABS: Venous Blood Gas Refer to POC result
[2025-01-25] MEDS: HYDROmorphone HCl 0.5 MG/0.5 ML SYRINGE 0.25 MG IVPUSH (20:28)
[2025-01-25] MEDS: Hydrocortisone Sod Succ/PF 100 MG VIAL IVPUSH (20:29)
[2025-01-25] MEDS: Sodium Bicarbonate 8.4% 150 MEQ in Dextrose 5 % 850 ML IV (20:52)
[2025-01-25 21:54] LABS: Anion Gap 14 (12-20); Blood Urea Nitrogen 66 mg/dL (9-16); Carbon Dioxide 10 mmol/L (22-29); Chloride 115 mmol/L (96-108); Creatinine Clr Calc Pharmacy 8.7; Estimated Glomerular Filt Rate 11; Glucose Random 104 mg/dL (60-115); Potassium 3.5 mmol/L (3.3-5.1); Sodium 135 mmol/L (135-145)
[2025-01-25] MEDS: Sodium Bicarbonate 8.4% 50 MEQ/50 ML SYRINGE IVPUSH (22:10)
[2025-01-25] MEDS: Lactated Ringers 2,000 ML 999 ML IV (22:16)
[2025-01-25 22:47] LABS: Venous Blood Gas Refer to POC result
[2025-01-25 22:48] LABS: VBG Base Excess -10.6 mmol/L; VBG HCO3 13 mmol/L (22-26); VBG pCO2 25 mmHg; VBG pH 7.33 (7.32-7.43); VBG pO2 72 mmHg
[2025-01-26] VITALS (7 sets, daily range): BP systolic 110–133; BP diastolic 56–68; PULSE 79–97; RESP 15–18; TEMP 36.2–37.2; O2SAT 95–99
[2025-01-26 00:51] LABS: VBG Base Excess -9.1 mmol/L; VBG HCO3 14 mmol/L (22-26); VBG pCO2 23 mmHg; VBG pH 7.38 (7.32-7.43); VBG pO2 55 mmHg
[2025-01-26 00:53] LABS: Appearance Urine Cloudy; Color Urine Yellow; Glucose Urine UA Negative (Negative); Leukocyte Esterase Urine Trace (Negative); Nitrite Urine Negative (Negative); PH 5.5 (5.0-9.0); Specific Gravity - Urine 1.015 (1.005-1.025); UMIC TRIGGER UACC YES; Urine Blood Negative (Negative); Urine Ketones 15 mg/dL (Negative); Urine Protein 30 (1+) mg/dL (Neg-Trace)
[2025-01-26 01:15] LABS: Venous Blood Gas Refer to POC result
[2025-01-26 01:24] LABS: RBC Urine 0-2 /HPF (0-2)
[2025-01-26 01:25] LABS: Bacteria Urine None Seen (None Seen); Calcium Oxalate Crystals Urine Present; Hyaline Casts Urine >20 /LPF (0-2); WBC Urine 0-5 /HPF (0-5)
[2025-01-26 01:26] LABS: Granular Casts Urine Present
[2025-01-26 05:28] LABS: Anion Gap 16 (12-20); Blood Urea Nitrogen 59 mg/dL (9-16); Calcium 7.9 mg/dL (8.4-10.2); Carbon Dioxide 14 mmol/L (22-29); Chloride 110 mmol/L (96-108); Creatinine Clr Calc Pharmacy 11.2; Estimated Glomerular Filt Rate 15; Glucose Random 152 mg/dL (60-115); Potassium 3.2 mmol/L (3.3-5.1); Sodium 137 mmol/L (135-145)
--- NOTE | 2025-01-26 05:41 | P.HPHOSP_ITS ---
History of Present Illness Date of Service: 01/26/25 Chief Complaint: Diarrhea 74-year-old female with a past medical history of protein calorie malnutrition DVT fibromyalgia, chronic diarrhea, osteoporosis, hypertension, history of C diff presented to the hospital today with a chief complaint of diarrhea. Patient mentions that for the past week she has been having multiple episodes of diarrhea -about 15 episodes per day. Has been trying to keep up fluids. Reports abdominal discomfort. Denies any blood in the stool. Stool loose and watery. patient mentioned that she has been having chronic diarrhea- has been following with Dr. Blackburn with Gastroenterology. Also has seen planogrammer in [place]. Initially presumed to be Crohn's disease but tests resulted negative. Has been having these episodes of diarrhea since March of 2024. In September she was started on budesonide with improvement in her diarrheal illness. Last week she ran out of the budesonide and has had difficulty filling 18 due to concerns for prescription issues. Since then he has been started have multiple episodes of diarrhea. She finally got the budesonide prescription and she took it yesterday and immediately she has her diarrhea improved. Mentions that for the past 1 day she has not Peed urine. Denies any nausea or vomiting. Denies any fevers and chills. Denies any chest pain or palpitations. Denies any lightheadedness or dizziness. Review of all other systems is negative except mentioned above ER course: Per ER team, patient has appeared to be dehydrated, cachectic, blood pressure is stable. CT abdomen pelvis showed no acute intra-abdominal process. Labs noted to have elevated creatinine of 4.4 compared to her baseline of 0.9. Bladder scan showed no urine. Patient reported right flank pain. Also severe metabolic acidosis with bicarb of 7 and pH of 7.1. Patient was started on IV fluids and sodium bicarb. On the follow-up labs is serum bicarb improved to 19. Creatinine improved to 2.6. Patient has started to make urine. Gastroenterology on-call and Nephrology on-call was notified. [facility] Medical History Hypertension Mitral valve prolapse Lupus GERD (gastroesophageal reflux disease) COVID-19 long hauler Hypoglycemia Asthma Hyperlipidemia Fibromyalgia Family History Paternal Aunt Breast CA Paternal Aunt Breast CA Surgical History H/O dilation and curettage History of breast surgery Leg fracture, right Social History Household Members: Spouse and Family Household Members Other:: 2 Housing: House Do you presently have visiting nurse or other home services: No Alcohol intake: never Comment: pt. refusing bed alarm . Patient Tobacco Use Status: Never used Tobacco e-Cigarette/Vaping Use: Never Used Second Hand Smoke Exposure: No Advance Directives: Yes Advance Directives on File: Yes Advance Directives Date on File: 10/01/24 service: No Gender identity: Female Meds Allergies Allergy/AdvReac Type Severity Reaction Status Date / Time levofloxacin [From LEVAQUIN] Allergy Severe Severe Verified 01/25/25 15:03 itching acetaminophen [From TYLENOL] Allergy Intermediate Itching Verified 01/25/25 15:03 epinephrine [EPINEPHRINE] Allergy Intermediate Tachycardia Verified 01/25/25 15:03 Penicillins [PENICILLINS] Allergy Intermediate Itching Verified 01/25/25 15:03 and hives diclofenac [DICLOFENAC] Allergy Unknown Hives Verified 01/25/25 15:03 meperidine [Demerol] Allergy Unknown Rash Verified 01/25/25 15:03 penicillin V Allergy Unknown Rash Verified 01/25/25 15:03 procaine [From NOVOCAIN] Allergy Unknown Unknown Verified 01/25/25 15:03 feathers Allergy Itching Verified 01/25/25 15:03 wool Allergy Itching Verified 01/25/25 15:03 Sulfa (Sulfonamide AdvReac Intermediate Nausea Verified 01/25/25 15:03 Antibiotics) [SULFA (SULFONAMIDE ANTIBIOTICS)] doxycycline AdvReac Stomach Verified 01/25/25 15:03 Upset Active Medications: Current Medications Apixaban (Apixaban 5 Mg Tablet) 5 mg PO BID [facility] Budesonide (Budesonide Dr 3 Mg Capsule) 9 mg PO DAILY [facility] Sodium Bicarbonate 150 meq/ (Dextrose) 1,000 mls @ 150 mls/hr IV .Q6H40M [facility] Last Admin: 01/26/25 05:30 Dose: Not Given Dextrose/Sodium Chloride (D51/2ns) 1,000 mls @ 100 mls/hr IVCONT .Q10H [facility] Melatonin (Melatonin 3 Mg Tablet) 6 mg PO BEDTIME PRN PRN Reason: Insomnia Sodium Chloride (0.9 % Sodium Chloride Flush 3 Ml Syringe) 3 ml IVFLUSH QSHIFT [facility] Home Medications ?Medication ?Instructions ?Recorded ?Confirmed ?Last Taken ?Type albuterol sulfate 90 mcg/actuation 2 puff inhalation Q6H PRN 06/07/23 01/03/25 09/29/24 History aerosol inhaler Shortness Of Breath carisoprodol 350 mg tablet 350 mg PO BEDTIME 06/07/23 01/03/25 09/29/24 History montelukast 10 mg tablet 10 mg PO BEDTIME 06/07/23 01/03/25 09/29/24 History omeprazole 20 mg capsule,delayed 20 mg PO BID 06/07/23 01/03/25 09/29/24 History release cyclosporine 0.05 % eye drops in a 1 drp ophthalmic (eye) BID 05/13/24 01/03/25 09/29/24 History dropperette (Restasis) propranolol 10 mg tablet 10 mg PO NEEDED PRN anxiety 05/13/24 01/03/25 09/29/24 History melatonin 10 mg tablet 10 mg PO BEDTIME 05/21/24 01/03/25 09/29/24 History magnesium oxide 250 mg PO DAILY 07/21/24 01/03/25 09/29/24 History celecoxib 100 mg capsule 100 mg PO BEDTIME 09/30/24 01/03/25 09/29/24 History metoclopramide HCl 5 mg tablet 5 mg PO TID 10/01/24 01/03/25 09/30/24 09:00 History apixaban 5 mg tablet (Eliquis) 5 mg PO BID 11/17/24 01/03/25 Unknown History thiamine HCl (vitamin B1) 100 mg 100 mg PO DAILY 11/17/24 01/03/25 Unknown History tablet Physical Exam 2 Vital Signs and Narrative: Vital Signs: Last Vital Signs Temp 99.2 F 01/25/25 21:25 Pulse 97 01/26/25 00:32 Resp 16 01/26/25 00:32 BP 110/58 L 01/26/25 00:32 Pulse Ox 96 01/26/25 00:32 O2 Del Method Room Air 01/26/25 00:32 BMI result Body Mass Index 17.9 Gen: Appears be in no acute distress ; cachectic HEENT: NCAT, Moist mucosa. Pulmonary: Vesicular breath sounds, fair air entry CVS: Normal S1-S2 Abdomen: BS+, Soft, Nontender Extremities: Warm well perfused Neuro: Alert and awake. Results Labs 01/25/25 15:38 01/26/25 00:38 Labs: Laboratory Results - last 24 hr 01/25/25 01/25/25 01/25/25 15:38 19:55 21:28 MCV 89.8 MCH 29.7 MCHC 33.1 RDW 12.8 Plt Count 304 MPV 11.0 Immature Gran % (Auto) 0.4 Neut % (Auto) 81.9 H Lymph % (Auto) 9.2 L [place] % (Auto) 8.0 Eos % (Auto) 0.1 Baso % (Auto) 0.4 Lymph # (Auto) 0.7 L [place] # (Auto) 0.6 Eos # (Auto) 0.0 Baso # (Auto) 0.0 Abs Immat Gran (auto) 0.03 Absolute Neuts (auto) 6.2 Absolute Nucleated RBC 0.000 Nucleated RBC % (auto) 0.0 ESR 40 H VBG pH 7.12 L* VBG pCO2 23 VBG pO2 60 VBG HCO3 8 L VBG O2 Saturation 87.0 VBG Base Excess -19.3 Anion Gap 18 14 Estim Creat Clear Calc 7.8 8.7 Estimated GFR 10 11 Random Glucose 89 104 Calcium 9.2 8.0 L D Phosphorus 8.1 H Magnesium 2.1 Total Bilirubin 0.4 AST 61 H ALT 70 H Alkaline Phosphatase 112 Total Creatine Kinase 19 L C-Reactive Protein 2.42 H Total Protein 8.7 H Albumin 4.1 Lipase 43 Urine Color Urine Appearance Urine pH Ur Specific [place] Urine Protein Urine Glucose (UA) Urine Ketones Urine Blood Urine Nitrite Ur Leukocyte Esterase Urine RBC Urine WBC Ur Squamous Epith Cells Calcium Oxalate Crystal Urine Bacteria Hyaline Casts Granular Casts Influenza Type A (PCR) NEGATIVE Influenza Type B (PCR) NEGATIVE RSV RNA Qual (PCR) NEGATIVE SARS-CoV-2 RNA (RT-PCR) NEGATIVE 01/25/25 01/26/25 01/26/25 22:44 00:38 00:46 MCV MCH MCHC RDW Plt Count MPV Immature Gran % (Auto) Neut % (Auto) Lymph % (Auto) [place] % (Auto) Eos % (Auto) Baso % (Auto) Lymph # (Auto) [place] # (Auto) Eos # (Auto) Baso # (Auto) Abs Immat Gran (auto) Absolute Neuts (auto) Absolute Nucleated RBC Nucleated RBC % (auto) ESR VBG pH 7.33 7.38 VBG pCO2 25 23 VBG pO2 72 55 VBG HCO3 13 L 14 L VBG O2 Saturation 98.0 91.0 VBG Base Excess -10.6 -9.1 Anion Gap 16 Estim Creat Clear Calc 11.2 Estimated GFR 15 Random Glucose 152 H Calcium 7.9 L Phosphorus Magnesium Total Bilirubin AST ALT Alkaline Phosphatase Total Creatine Kinase C-Reactive Protein Total Protein Albumin Lipase Urine Color Yellow Urine Appearance Cloudy Urine pH 5.5 Ur Specific [place] 1.015 Urine Protein 30 (1+) H Urine Glucose (UA) Negative Urine Ketones 15 Urine Blood Negative Urine Nitrite Negative Ur Leukocyte Esterase Trace H Urine RBC 0-2 Urine WBC 0-5 Ur Squamous Epith Cells 11-20 Calcium Oxalate Crystal Present Urine Bacteria None Seen Hyaline Casts >20 Granular Casts Present Influenza Type A (PCR) Influenza Type B (PCR) RSV RNA Qual (PCR) SARS-CoV-2 RNA (RT-PCR) Imaging Radiologist's Impressions: Impressions Chest X-Ray 01/25/25 15:03 IMPRESSION: No active pulmonary disease. Electronically signed by: Ebenezer Alvarado MD 01/25/2025 04:11 PM EDT RP Assessment and Plan (1) [place] (acute kidney injury): Status: Acute Plan 74-year-old female with a past medical history of protein calorie malnutrition DVT fibromyalgia, chronic diarrhea, osteoporosis, hypertension, history of C diff presented to the hospital today with a chief complaint of diarrhea. admitted for following Acute on Chronic diarrhea: patient has chronic diarrhea and has been started on budesonide in September with improvement in the symptoms. Currently has increased episodes of diarrhea since she ran out of her budesonide. She started taking budesonide from yesterday with improvement in symptoms. CT abdomen pelvis showed no acute findings. Continue home budesonide 9 mg daily Gastroenterology consult Supportive care Advanced diet as tolerated Stool studies [place]: Baseline creatinine around 0.9 Creatinine on presentation was 4.1 Patient was oliguric Patient has started to make urine after IV fluids. Continue maintenance IV fluids Vasques catheter for strict I's and O's Nephrology consult notified Severe metabolic acidosis: Secondary to severe diarrheal illness. noted a serum bicarb of 7 and pH of 7.1. Patient was started on sodium bicarb in the ER-> With improvement in acidosis. Follow-up labs showed bicarb of 19. continue maintenance IV fluids Nephrology follow-up in a.m. HX DVT: Secondary to PICC line. PICC line was removed. Patient is supposed to take Eliquis for another month per family. We will continue med reconciliation: Pending final med rec by pharmacy in a.m.. Resume home meds accordingly. DVT prophylaxis: Patient on Eliquis Code status: Full code Quality Stroke Does the patient have a stroke diagnosis?: No VTE Prior VTE?: No VTE Risk Level:: Medical - moderate - high VTE Device Contraindication: Treatment Not Indicated VTE Drug Contraindication: N/A - Med Ordered
--- NOTE | 2025-01-26 05:50 | PC.NURSE ---
Patient refused F/C insertion, Dr. Ventura notified.
[2025-01-26 05:54] LABS: Anion Gap 15 (12-20); Blood Urea Nitrogen 57 mg/dL (9-16); Calcium 7.5 mg/dL (8.4-10.2); Carbon Dioxide 19 mmol/L (22-29); Chloride 107 mmol/L (96-108); Creatinine Clr Calc Pharmacy 13.1; Estimated Glomerular Filt Rate 17; Glucose Random 185 mg/dL (60-115); Potassium 3.1 mmol/L (3.3-5.1); Sodium 138 mmol/L (135-145)
--- NOTE | 2025-01-26 05:58 | PC.NURSE ---
Per Dr. Ventura, OK not to insert F/C at this time.
[2025-01-26] MEDS: Dextrose 5 % and 0.45 % NaCl 1,000 ML 100 ML IVCONT ×2 (06:02→15:39)
[2025-01-26] MEDS: Potassium Chloride ER 20 MEQ TAB.ER.PRT 40 MEQ PO (08:26)
[2025-01-26] MEDS: Budesonide DR 3 MG Capsule 9 MG PO (08:26)
[2025-01-26] MEDS: Apixaban 5 MG TABLET PO ×2 (08:26→20:12)
[2025-01-26] MEDS: Sodium Bicarbonate 8.4% 150 MEQ in Dextrose 5 % 850 ML IV ×3 (08:27→20:50)
--- NOTE | 2025-01-26 08:32 | PC.NURSE ---
Per re start paused Bicarb drip
--- NOTE | 2025-01-26 11:41 | PHA.MEDREC ---
Addendum entered by Libby Staples [facility] 01/26/25 16:35: Daughter Flavia called back for date of last dose of Humira 01/17/25 and methotrexate 01/20/25. Addendum entered by Coy Cox 01/26/25 12:08: reviewed Addendum entered by Keren Franco 01/26/25 11:53: Spoke to patients daughter at bedside to confirm med list. Daughter didn't know when her mom last took Hyrimoz. Daughter only had her last dose from October. Daughter calculated patients next dose would have been 01/30/25 if patient took last week , however if she had her dose this week , her next dose would be 02/06/25. Daughter wasn't sure when patient last took her Methotrexate. Patient states she has all her medications written on her a white board with all her last doses on it. Daughter says she will go later to look and call us back. Will update me rec with any changes. Original Note: Pharmacy Consult ? Medication Reconciliation Pharmacy has completed the medication reconciliation. Spoke to patent to confirm med list. Patient was able to confirm all her medication. Patient states she is not on Restasis eye drops( hasn't started due to insurance) , Metoclopramide 5 mg, and Tramadol 50 mg ( patient says she can not have any opioid medications). Patient confirmed Hyrimoz (CF) Pen 40 mg q 2 week , however she doesn't remember when she last took or when her next dose is, Same with Methotrexate Sod (PF) 12.5 mg q week, however last dose date unknown and doesn't know when her next dose is. Patient states to call her daughter estefania to confirm last dose. Called and left message on daughter voicemail to confirm last dose.
--- NOTE | 2025-01-26 12:27 | P.PNIM_ITS ---
Subjective Subjective Date of Service: 01/26/25 Interval History: diarrhea Physical Exam 2 Vital Signs: Vital Signs: Last Vital Signs Temp 98.9 F 01/26/25 11:22 Pulse 82 01/26/25 11:22 Resp 18 01/26/25 11:22 BP 118/58 L 01/26/25 11:22 Pulse Ox 96 01/26/25 11:22 O2 Del Method Room Air 01/26/25 11:22 BMI result Body Mass Index 17.9 General: AO X 3, no acute distress Resp: CTA bilateral, no accessory muscles used CVS: S1,S2,RRR GI: soft, non tender, non distended Neuro: motor grossly intact, alert Psych: appropriate affect, appropriate insight Objective Data Active Medications Apixaban (Apixaban 5 Mg Tablet) 5 mg PO BID [facility] Last Admin: 01/26/25 08:26 Dose: 5 mg Documented By: URIAH Budesonide (Budesonide Dr 3 Mg Capsule) 9 mg PO DAILY [facility] Last Admin: 01/26/25 08:26 Dose: 9 mg Documented By: URIAH Sodium Bicarbonate 150 meq/ (Dextrose) 1,000 mls @ 150 mls/hr IV .Q6H40M [facility] Last Admin: 01/26/25 08:27 Dose: 150 mls/hr Documented By: URIAH Dextrose/Sodium Chloride (D51/2ns) 1,000 mls @ 100 mls/hr IVCONT .Q10H [facility] Last Admin: 01/26/25 06:02 Dose: 100 mls/hr Documented By: ISAAK Melatonin (Melatonin 3 Mg Tablet) 6 mg PO BEDTIME PRN PRN Reason: Insomnia Sodium Chloride (0.9 % Sodium Chloride Flush 3 Ml Syringe) 3 ml IVFLUSH QSHIFT [facility] Last Admin: 01/26/25 08:33 Dose: Not Given Documented By: URIAH Non-Admin Reason: IV Running Labs 01/25/25 15:38 01/26/25 04:20 Labs: Laboratory Results - last 24 hr 01/25/25 01/25/25 01/25/25 15:38 19:55 21:28 MCV 89.8 MCH 29.7 MCHC 33.1 RDW 12.8 Plt Count 304 MPV 11.0 Immature Gran % (Auto) 0.4 Neut % (Auto) 81.9 H Lymph % (Auto) 9.2 L [place] % (Auto) 8.0 Eos % (Auto) 0.1 Baso % (Auto) 0.4 Lymph # (Auto) 0.7 L [place] # (Auto) 0.6 Eos # (Auto) 0.0 Baso # (Auto) 0.0 Abs Immat Gran (auto) 0.03 Absolute Neuts (auto) 6.2 Absolute Nucleated RBC 0.000 Nucleated RBC % (auto) 0.0 ESR 40 H VBG pH 7.12 L* VBG pCO2 23 VBG pO2 60 VBG HCO3 8 L VBG O2 Saturation 87.0 VBG Base Excess -19.3 Anion Gap 18 14 Estim Creat Clear Calc 7.8 8.7 Estimated GFR 10 11 Random Glucose 89 104 Calcium 9.2 8.0 L D Phosphorus 8.1 H Magnesium 2.1 Total Bilirubin 0.4 AST 61 H ALT 70 H Alkaline Phosphatase 112 Total Creatine Kinase 19 L C-Reactive Protein 2.42 H Total Protein 8.7 H Albumin 4.1 Lipase 43 Urine Color Urine Appearance Urine pH Ur Specific [place] Urine Protein Urine Glucose (UA) Urine Ketones Urine Blood Urine Nitrite Ur Leukocyte Esterase Urine RBC Urine WBC Ur Squamous Epith Cells Calcium Oxalate Crystal Urine Bacteria Hyaline Casts Granular Casts Influenza Type A (PCR) NEGATIVE Influenza Type B (PCR) NEGATIVE RSV RNA Qual (PCR) NEGATIVE SARS-CoV-2 RNA (RT-PCR) NEGATIVE 01/25/25 01/26/25 01/26/25 22:44 00:38 00:46 MCV MCH MCHC RDW Plt Count MPV Immature Gran % (Auto) Neut % (Auto) Lymph % (Auto) [place] % (Auto) Eos % (Auto) Baso % (Auto) Lymph # (Auto) [place] # (Auto) Eos # (Auto) Baso # (Auto) Abs Immat Gran (auto) Absolute Neuts (auto) Absolute Nucleated RBC Nucleated RBC % (auto) ESR VBG pH 7.33 7.38 VBG pCO2 25 23 VBG pO2 72 55 VBG HCO3 13 L 14 L VBG O2 Saturation 98.0 91.0 VBG Base Excess -10.6 -9.1 Anion Gap 16 Estim Creat Clear Calc 11.2 Estimated GFR 15 Random Glucose 152 H Calcium 7.9 L Phosphorus Magnesium Total Bilirubin AST ALT Alkaline Phosphatase Total Creatine Kinase C-Reactive Protein Total Protein Albumin Lipase Urine Color Yellow Urine Appearance Cloudy Urine pH 5.5 Ur Specific [place] 1.015 Urine Protein 30 (1+) H Urine Glucose (UA) Negative Urine Ketones 15 Urine Blood Negative Urine Nitrite Negative Ur Leukocyte Esterase Trace H Urine RBC 0-2 Urine WBC 0-5 Ur Squamous Epith Cells 11-20 Calcium Oxalate Crystal Present Urine Bacteria None Seen Hyaline Casts >20 Granular Casts Present Influenza Type A (PCR) Influenza Type B (PCR) RSV RNA Qual (PCR) SARS-CoV-2 RNA (RT-PCR) 01/26/25 04:20 MCV MCH MCHC RDW Plt Count MPV Immature Gran % (Auto) Neut % (Auto) Lymph % (Auto) [place] % (Auto) Eos % (Auto) Baso % (Auto) Lymph # (Auto) [place] # (Auto) Eos # (Auto) Baso # (Auto) Abs Immat Gran (auto) Absolute Neuts (auto) Absolute Nucleated RBC Nucleated RBC % (auto) ESR VBG pH VBG pCO2 VBG pO2 VBG HCO3 VBG O2 Saturation VBG Base Excess Anion Gap 15 Estim Creat Clear Calc 13.1 Estimated GFR 17 Random Glucose 185 H Calcium 7.5 L Phosphorus Magnesium Total Bilirubin AST ALT Alkaline Phosphatase Total Creatine Kinase C-Reactive Protein Total Protein Albumin Lipase Urine Color Urine Appearance Urine pH Ur Specific [place] Urine Protein Urine Glucose (UA) Urine Ketones Urine Blood Urine Nitrite Ur Leukocyte Esterase Urine RBC Urine WBC Ur Squamous Epith Cells Calcium Oxalate Crystal Urine Bacteria Hyaline Casts Granular Casts Influenza Type A (PCR) Influenza Type B (PCR) RSV RNA Qual (PCR) SARS-CoV-2 RNA (RT-PCR) Assessment and Plan (1) [place] (acute kidney injury): Status: Acute Plan 78F PMH protein calorie malnutrition due to Crohn's, DVT, fibromyalgia, history of C diff, hypertension presented with weakness and diarrhea found to be in severe acute kidney injury Acute kidney injury complicated by severe acute metabolic acidosis due to Crohn's with diarrhea Improving with IV fluids with bicarbonate, nephrology following, monitor labs Hold NSAIDs, PPI, ARB Protein calorie malnutrition Encourage p.o. intake History of DVT related to PICC Continue apixaban 1 more month Full code reason for continued hospitalization: IV fluids for [place] Quality Stroke Does the patient have a stroke diagnosis?: No VTE Prior VTE?: No VTE Risk Level:: Medical - moderate - high VTE Device Contraindication: Treatment Not Indicated VTE Drug Contraindication: N/A - Med Ordered
[2025-01-26] MEDS: ondansetron HCL 4 MG/2 ML VIAL IVPUSH (13:49)
--- NOTE | 2025-01-26 15:02 | P.CNGI_ITS ---
History of Present Illness Data of Consult Service Date: 01/26/25 Requesting physician: Douglas Child Primary Care Provider: Parvez Altamirano MD HPI 74 YF with history of protein calorie malnutrition, DVT fibromyalgia, chronic diarrhea, osteoporosis, hypertension, history of C diff seen at [facility] on 01/25/25 with diarrhea. Patient mentions that for the past week she has been having upto 15 episodes of diarrhea per day consisting of loose and watery stools and has been trying to keep up with fluids. Reports abdominal discomfort. Denied any nausea, vomiting, blood in the stool, fevers and chills, chest pain or palpitations, lightheadedness or dizziness. Stool loose and watery. Patient is known to me from past hospitalizations and GI clinic FU for chronic diarrhea due to Crohn's disease/autoimmune enteropathy (elevated fecal calprotectin and IBD serology positive for Crohn's disease). Pt was referred to Dr Mar ([place] [facility] a 2nd opinion - diff diagnosis of celiac disease, immune mediated enteropathy or NSAID related enteropathy was considered Pt has had diarrhea, decreased PO intake with wt loss since March of 2024. In September she was started on budesonide, Humira and MTX with improvement in symptoms and slowly regained the wt she had los . Last week she ran out of the budesonide and has had difficulty filling it due to concerns for prescription issues. Since then he has been started have multiple episodes of diarrhea. She finally got the budesonide prescription and she took it yesterday and notes partial improvement in diarrhea symptoms. Pt states she still has nausea, decreased appetite, mild abdominal pain and had one episode of diarrhea earlier today - stool is less watery. Mentions that for the past 1 day she has not passed any urine. ER course: Per ER team, patient has appeared to be dehydrated, cachectic, blood pressure is stable. Labs noted to have elevated creatinine of 4.4 compared to her baseline of 0.9. Bladder scan showed no urine. Patient reported right flank pain. Also severe metabolic acidosis with bicarb of 7 and pH of 7.1. Patient was started on IV fluids and sodium bicarb. On the follow-up labs is serum bicarb improved to 19. Creatinine improved to 2.6. Patient has started to make urine. 01/25/[address] SCAN SHOWED: No acute findings. Pancolonic distribution of liquid stool suggestive of diarrheal illness. Correlate for gastroenteritis. Review of Systems 2 Review of Systems: Yes all other systems are reviewed and are negative PMFSH Past Medical History Medical History Hypertension Mitral valve prolapse Lupus GERD (gastroesophageal reflux disease) COVID-19 long hauler Hypoglycemia Asthma Hyperlipidemia Fibromyalgia Family History Family History Paternal Aunt Breast CA Paternal Aunt Breast CA Surgical History Surgical History H/O dilation and curettage History of breast surgery Leg fracture, right Social History Social History Household Members: Spouse Household Members Other:: 2 Housing: House Do you presently have visiting nurse or other home services: No Alcohol intake: never Comment: pt. refusing bed alarm . Patient Tobacco Use Status: Never used Tobacco e-Cigarette/Vaping Use: Never Used Second Hand Smoke Exposure: No Use of substances other than those prescribed or required for medical reasons: No Currently Displaying Signs/Symptoms of Drug Intoxication Withdrawal: No Have you been hit, kicked, punched, or otherwise hurt by someone within the past year? If so, by whom?: No Do you feel safe in your current relationship?: Yes Are you made to feel afraid or neglected: No Advance Directives: Yes Advance Directives on File: Yes Advance Directives Date on File: 10/01/24 Recently lost weight without trying: No Nutrition Risks: Gastrointestinal Malabsorption Patient : No : No Poor oral hygiene: No service: No Gender identity: Female Meds Allergies Allergy/AdvReac Type Severity Reaction Status Date / Time levofloxacin [From LEVAQUIN] Allergy Severe Severe Verified 01/25/25 15:03 itching acetaminophen [From TYLENOL] Allergy Intermediate Itching Verified 01/25/25 15:03 epinephrine [EPINEPHRINE] Allergy Intermediate Tachycardia Verified 01/25/25 15:03 Penicillins [PENICILLINS] Allergy Intermediate Itching Verified 01/25/25 15:03 and hives diclofenac [DICLOFENAC] Allergy Unknown Hives Verified 01/25/25 15:03 meperidine [Demerol] Allergy Unknown Rash Verified 01/25/25 15:03 penicillin V Allergy Unknown Rash Verified 01/25/25 15:03 procaine [From NOVOCAIN] Allergy Unknown Unknown Verified 01/25/25 15:03 feathers Allergy Itching Verified 01/25/25 15:03 wool Allergy Itching Verified 01/25/25 15:03 Sulfa (Sulfonamide AdvReac Intermediate Nausea Verified 01/25/25 15:03 Antibiotics) [SULFA (SULFONAMIDE ANTIBIOTICS)] doxycycline AdvReac Stomach Verified 01/25/25 15:03 Upset Active Medications: Current Medications Apixaban (Apixaban 5 Mg Tablet) 5 mg PO BID [facility] Last Admin: 01/26/25 08:26 Dose: 5 mg Budesonide (Budesonide Dr 3 Mg Capsule) 9 mg PO DAILY [facility] Last Admin: 01/26/25 08:26 Dose: 9 mg Carisoprodol (Carisoprodol 350 Mg Tablet) 350 mg PO BID [facility] Folic Acid (Folic Acid 1 Mg Tablet) 1 mg PO DAILY [facility] Dextrose/Sodium Chloride (D51/2ns) 1,000 mls @ 100 mls/hr IVCONT .Q10H [facility] Last Admin: 01/26/25 06:02 Dose: 100 mls/hr Sodium Bicarbonate 150 meq/ (Dextrose) 1,000 mls @ 150 mls/hr IV .Q6H40M [facility] Melatonin (Melatonin 3 Mg Tablet) 6 mg PO BEDTIME PRN PRN Reason: Insomnia Montelukast Sodium (Montelukast Sodium 10 Mg Tablet) 10 mg PO BEDTIME [facility] Ondansetron HCl (Ondansetron Hcl 4 Mg/2 Ml Vial) 4 mg IVPUSH Q6H PRN PRN Reason: Nausea Last Admin: 01/26/25 13:49 Dose: 4 mg Sodium Chloride (0.9 % Sodium Chloride Flush 3 Ml Syringe) 3 ml IVFLUSH QSHIFT [facility] Last Admin: 01/26/25 08:33 Dose: Not Given Thiamine HCl (Thiamine Hcl 100 Mg Tablet) 100 mg PO DAILY [facility] Home Medications ?Medication ?Instructions ?Recorded ?Confirmed ?Last Taken ?Type albuterol sulfate 90 mcg/actuation 2 puff inhalation Q6H PRN 06/07/23 01/26/25 09/29/24 History aerosol inhaler Shortness Of Breath montelukast 10 mg tablet 10 mg PO BEDTIME 06/07/23 01/26/25 01/25/25 History omeprazole 20 mg capsule,delayed 20 mg PO BID@0630,1630 06/07/23 01/26/25 01/25/25 History release propranolol 10 mg tablet 10 mg PO NEEDED PRN anxiety 05/13/24 01/26/25 09/29/24 History melatonin 10 mg tablet 10 mg PO BEDTIME 05/21/24 01/26/25 01/25/25 History magnesium oxide 250 mg PO DAILY 07/21/24 01/26/25 01/25/25 History celecoxib 100 mg capsule 100 mg PO BEDTIME 09/30/24 01/26/25 01/25/25 History apixaban 5 mg tablet (Eliquis) 5 mg PO BID 11/17/24 01/26/25 01/25/25 History thiamine HCl (vitamin B1) 100 mg 100 mg PO DAILY 11/17/24 01/26/25 01/25/25 History tablet budesonide 3 mg 9 mg PO DAILY 01/26/25 01/26/25 01/25/25 History capsule,delayed,extended release carisoprodol 350 mg tablet 350 mg PO BID 01/26/25 01/26/25 01/25/25 History loperamide PO Q4-6H PRN Diarrhea 01/26/25 Unknown History Physical Exam 2 Vital Signs: Vital Signs: Last Vital Signs Temp 98.9 F 01/26/25 11:22 Pulse 82 01/26/25 11:22 Resp 18 01/26/25 11:22 BP 118/58 L 01/26/25 11:22 Pulse Ox 96 01/26/25 11:22 O2 Del Method Room Air 01/26/25 11:22 BMI result Body Mass Index 17.9 Const: General: no acute distress Nutritional Appearance: underweight O rientation/consciousness: patient oriented x3 Limitations: no limitations HEENT: Head: Yes normal to inspection Ears: hearing grossly normal bilaterally Mouth: Normal oral and palatal mucosa present Eyes: Sclerae: sclerae normal Pupils: Equal, round and reactive pupils present Neck: Neck: Yes normal visual inspection Chest: Chest palpation & inspection: normal inspection of the chest Resp: Effort & Inspection: normal respiratory effort Auscultation: clear to auscultation bilaterally Cardio: Palpation: normal PMI Rate: regular rate Rhythm: regular rhythm Heart sounds: S1 normal heart sound present, S2 normal heart sound present and no murmurs GI: Palpation (GI): Soft to palpation, Tenderness to palpation present (GI) (Mild lower abdominal tenderness) and No hepatosplenomegaly present A uscultation: normal bowel sounds Rectal Exam - Female: deferred Skin: General skin exam: no rashes or lesions noted Neuro: General: patient oriented x3, gait normal and moves all extremities Cranial nerves: Yes Equal, round and reactive pupils present Psych: Appearance: grossly normal Mental Status: mental status grossly normal Results Labs 01/27/25 06:34 01/26/25 04:20 Labs: Short CBC 01/25/25 Range/Units 15:38 WBC 7.5 (4.8-10.8) X10*3/uL Hgb 14.8 (12.0-16.0) g/dl Hct 44.7 (37.0-47.0) % Plt Count 304 (160-400) X10*3/uL BMP 01/25/25 01/25/25 01/26/25 15:38 21:28 00:38 Sodium 135 135 137 Potassium 3.9 3.5 3.2 L Chloride 114 H 115 H 110 H Carbon Dioxide 7 L* D 10 L* D 14 L BUN 66 H 66 H 59 H Creatinine 4.49 H* 4.04 H* 3.12 H Calcium 9.2 8.0 L D 7.9 L 01/26/25 04:20 Sodium 138 Potassium 3.1 L Chloride 107 Carbon Dioxide 19 L BUN 57 H Creatinine 2.67 H Calcium 7.5 L Cardiac Enzymes 01/25/25 Range/Units 15:38 Total Creatine Kinase 19 L (26-140) U/L Liver Function 01/25/25 Range/Units 15:38 Total Bilirubin 0.4 (0.0-1.0) mg/dL AST 61 H (5-31) U/L ALT 70 H (0-31) U/L Alkaline Phosphatase 112 (39-117) U/L Albumin 4.1 (3.5-5.0) g/dL Urine 01/26/25 Range/Units 00:38 Urine Color Yellow Urine Appearance Cloudy Urine pH 5.5 (5.0-9.0) Ur Specific [place] 1.015 (1.005-1.025) Urine Protein 30 (1+) H (Neg-Trace) mg/dL Urine Glucose (UA) Negative (Negative) mg/dL Assessment and Plan (1) Crohn's disease: Status: Acute (2) Weight loss: Status: Acute (3) PARIS (acute kidney injury): Status: Acute (4) Chronic diarrhea: Status: Acute Plan 74 YF with history of protein calorie malnutrition, DVT fibromyalgia, chronic diarrhea, osteoporosis, hypertension, history of C diff seen at [facility] on 01/25/25 with diarrhea. Patient mentions that for the past week she has been having upto 15 episodes of diarrhea per day consisting of loose and watery stools and has been trying to keep up with fluids. Reports abdominal discomfort. Patient is known to me from past hospitalizations and GI clinic FU for chronic diarrhea due to Crohn's disease/autoimmune enteropathy (elevated fecal calprotectin and IBD serology positive for Crohn's disease). Pt was referred to Dr Mar ([place] [facility] for a 2nd opinion - diff diagnosis of celiac disease, immune mediated enteropathy or NSAID related enteropathy was considered In September she was started on budesonide, Humira and MTX with improvement in symptoms and slowly regained the wt she had los . Last week she ran out of the budesonide and has had difficulty filling it due to concerns for prescription issues. Since then he has been started have multiple episodes of diarrhea. She finally got the budesonide prescription and she took it yesterday and notes partial improvement in diarrhea symptoms. Pt states she still has nausea, decreased appetite, mild abdominal pain and had one episode of diarrhea earlier today - stool is less watery. Recurrent diarrhea likely due to not taking Budesonide. Appropriate to rule out C Diff and bacterial gastroeneteritis. RECOMMENDATIONS: 1. Agree with anti-emetics and resuming budesonide. 2. Await results of stool culture and C Diff toxin 3. Monitor PO intake 4. Pt is due for her next Methotrexate injection on 01/27/25 and Humira injection on 01/31/25 Order placed for MTX 12.5 mg to be given subcut and inpatient pharmacy was notified. Procedures Date of Service Date of Service: 01/27/25
[2025-01-26 15:41] LABS: Leukocytes Stool Qualitative NEGATIVE (NEGATIVE)
[2025-01-26 15:48] LABS: CDiff Gene PCR NEGATIVE (Negative)
--- NOTE | 2025-01-26 20:22 | P.CONNP_ITS ---
History of Present Illness Reason for Consult Consult date: 01/26/25 Reason for consult: PARIS Chief Complaint Chief complaint: diarrhea History of Present Illness Narrative: 74-year-old female with chronic diarrhea, hypertension who presented to the hospital with excess diarrhea. For the past week she has been having multiple episodes of diarrhea -about 15 episodes per day and had been trying to keep up fluids. She had no abdominal discomfort or any blood in the stool. In September she was started on budesonide with improvement in her diarrheal illness. Last week she ran out of the budesonide and has had difficulty filling it due to concerns for prescription issues. Since then he has been started have multiple episodes of diarrhea. For the past 1 day prior to presentation she has not any urine output. In the ER patient has appeared to be dehydrated, cachectic, with stable blood pressure. CT abdomen pelvis showed no acute intra-abdominal process. She was found to have elevated creatinine of 4.4 compared to her baseline of 0.9. She also had severe metabolic acidosis with bicarb of 7 and pH of 7.1. Patient was started on IV fluids and sodium bicarb.She was admitted for further management. Nephrology has been consulted to assist in her clinical care during her current hospital stay Review of Systems Review of Systems Yes all other systems are reviewed and are negative PMFSH Past Medical History Medical History Hypertension Mitral valve prolapse Lupus GERD (gastroesophageal reflux disease) COVID-19 long hauler Hypoglycemia Asthma Hyperlipidemia Fibromyalgia Family History Family History Paternal Aunt Breast CA Paternal Aunt Breast CA Surgical History Surgical History H/O dilation and curettage History of breast surgery Leg fracture, right Social History Social History Household Members: Spouse Household Members Other:: 2 Housing: House Do you presently have visiting nurse or other home services: No Alcohol intake: never Comment: pt. refusing bed alarm . Patient Tobacco Use Status: Never used Tobacco e-Cigarette/Vaping Use: Never Used Second Hand Smoke Exposure: No Use of substances other than those prescribed or required for medical reasons: No Currently Displaying Signs/Symptoms of Drug Intoxication Withdrawal: No Have you been hit, kicked, punched, or otherwise hurt by someone within the past year? If so, by whom?: No Do you feel safe in your current relationship?: Yes Are you made to feel afraid or neglected: No Advance Directives: Yes Advance Directives on File: Yes Advance Directives Date on File: 10/01/24 Recently lost weight without trying: No Nutrition Risks: Gastrointestinal Malabsorption Patient : No : No Poor oral hygiene: No service: No Gender identity: Female Meds Allergies Allergy/AdvReac Type Severity Reaction Status Date / Time levofloxacin [From LEVAQUIN] Allergy Severe Severe Verified 01/25/25 15:03 itching acetaminophen [From TYLENOL] Allergy Intermediate Itching Verified 01/25/25 15:03 epinephrine [EPINEPHRINE] Allergy Intermediate Tachycardia Verified 01/25/25 15:03 Penicillins [PENICILLINS] Allergy Intermediate Itching Verified 01/25/25 15:03 and hives diclofenac [DICLOFENAC] Allergy Unknown Hives Verified 01/25/25 15:03 meperidine [Demerol] Allergy Unknown Rash Verified 01/25/25 15:03 penicillin V Allergy Unknown Rash Verified 01/25/25 15:03 procaine [From NOVOCAIN] Allergy Unknown Unknown Verified 01/25/25 15:03 feathers Allergy Itching Verified 01/25/25 15:03 wool Allergy Itching Verified 01/25/25 15:03 Sulfa (Sulfonamide AdvReac Intermediate Nausea Verified 01/25/25 15:03 Antibiotics) [SULFA (SULFONAMIDE ANTIBIOTICS)] doxycycline AdvReac Stomach Verified 01/25/25 15:03 Upset Active Medications: Current Medications Apixaban (Apixaban 5 Mg Tablet) 5 mg PO BID [facility] Last Admin: 01/26/25 20:12 Dose: 5 mg Budesonide (Budesonide Dr 3 Mg Capsule) 9 mg PO DAILY [facility] Last Admin: 01/26/25 08:26 Dose: 9 mg Carisoprodol (Carisoprodol 350 Mg Tablet) 350 mg PO BID [facility] Folic Acid (Folic Acid 1 Mg Tablet) 1 mg PO DAILY [facility] Dextrose/Sodium Chloride (D51/2ns) 1,000 mls @ 100 mls/hr IVCONT .Q10H [facility] Last Admin: 01/26/25 15:39 Dose: 100 mls/hr Sodium Bicarbonate 150 meq/ (Dextrose) 1,000 mls @ 150 mls/hr IV .Q6H40M [facility] Last Admin: 01/26/25 15:20 Dose: 150 mls/hr Melatonin (Melatonin 3 Mg Tablet) 6 mg PO BEDTIME PRN PRN Reason: Insomnia Montelukast Sodium (Montelukast Sodium 10 Mg Tablet) 10 mg PO BEDTIME [facility] Ondansetron HCl (Ondansetron Hcl 4 Mg/2 Ml Vial) 4 mg IVPUSH Q6H PRN PRN Reason: Nausea Last Admin: 01/26/25 13:49 Dose: 4 mg Sodium Chloride (0.9 % Sodium Chloride Flush 3 Ml Syringe) 3 ml IVFLUSH QSHIFT [facility] Last Admin: 01/26/25 17:57 Dose: Not Given Thiamine HCl (Thiamine Hcl 100 Mg Tablet) 100 mg PO DAILY [facility] Home Medications ?Medication ?Instructions ?Recorded ?Confirmed ?Last Taken ?Type albuterol sulfate 90 mcg/actuation 2 puff inhalation Q6H PRN 06/07/23 01/26/25 09/29/24 History aerosol inhaler Shortness Of Breath montelukast 10 mg tablet 10 mg PO BEDTIME 06/07/23 01/26/25 01/25/25 History omeprazole 20 mg capsule,delayed 20 mg PO BID@0630,1630 06/07/23 01/26/25 01/25/25 History release propranolol 10 mg tablet 10 mg PO NEEDED PRN anxiety 05/13/24 01/26/25 09/29/24 History melatonin 10 mg tablet 10 mg PO BEDTIME 05/21/24 01/26/25 01/25/25 History magnesium oxide 250 mg PO DAILY 07/21/24 01/26/25 01/25/25 History celecoxib 100 mg capsule 100 mg PO BEDTIME 09/30/24 01/26/25 01/25/25 History apixaban 5 mg tablet (Eliquis) 5 mg PO BID 11/17/24 01/26/25 01/25/25 History thiamine HCl (vitamin B1) 100 mg 100 mg PO DAILY 11/17/24 01/26/25 01/25/25 History tablet budesonide 3 mg 9 mg PO DAILY 01/26/25 01/26/25 01/25/25 History capsule,delayed,extended release carisoprodol 350 mg tablet 350 mg PO BID 01/26/25 01/26/25 01/25/25 History loperamide PO Q4-6H PRN Diarrhea 01/26/25 Unknown History Physical Exam Vital Signs: Last Vital Signs Temp 97.6 F 01/26/25 19:26 Pulse 83 01/26/25 19:26 Resp 17 01/26/25 19:26 BP 122/64 01/26/25 19:26 Pulse Ox 97 01/26/25 19:26 O2 Del Method Room Air 01/26/25 19:26 BMI result Body Mass Index 17.9 Const General: no acute distress Orientation/consciousness: patient oriented x3 Eyes EOM: EOMs intact bilaterally Neck Neck: Yes supple Resp Auscultation: diminished lung sounds Cardio Rate: regular rate GI Palpation (GI): Soft to palpation Neuro General: patient oriented x3 Results Lab Results 01/25/25 15:38 01/26/25 04:20 Lab results: Chemistry 01/25/25 01/25/25 01/26/25 15:38 21:28 00:38 Sodium 135 135 137 Potassium 3.9 3.5 3.2 L Carbon Dioxide 7 L* D 10 L* D 14 L BUN 66 H 66 H 59 H Creatinine 4.49 H* 4.04 H* 3.12 H Calcium 9.2 8.0 L D 7.9 L Phosphorus 8.1 H 01/26/25 04:20 Sodium 138 Potassium 3.1 L Carbon Dioxide 19 L BUN 57 H Creatinine 2.67 H Calcium 7.5 L Phosphorus Hematology 01/25/25 15:38 WBC 7.5 Hgb 14.8 Plt Count 304 Urinalysis 01/26/25 00:38 Urine Color Yellow Urine Appearance Cloudy Urine pH 5.5 Ur Specific [place] 1.015 Urine Protein 30 (1+) H Urine Glucose (UA) Negative Urine Ketones 15 Urine Blood Negative Urine Nitrite Negative Ur Leukocyte Esterase Trace H Urine RBC 0-2 Urine WBC 0-5 Ur Squamous Epith Cells 11-20 Hyaline Casts >20 Assessment and Plan (1) PARIS (acute kidney injury): Status: Acute Plan Had PARIS due to tubular injury No obstruction by imaging No reason to suspect AIN/GN Had severe metabolic acidosis Was given NaHCO3 with improvement UO better; Renal function improving No indication for renal replacement Shall continue current supportive care for now Procedures Date of Service Date of Service: 01/26/25
[2025-01-26] MEDS: Loperamide HCl 2 MG CAPSULE PO (20:50)
[2025-01-26] MEDS: carisoprodoL 350 MG TABLET PO (22:42)
[2025-01-26] MEDS: Montelukast Sodium 10 MG TABLET PO (22:42)
[2025-01-26] MEDS: Melatonin 3 MG TABLET 6 MG PO (22:43)
[2025-01-27] MEDS: Dextrose 5 % and 0.45 % NaCl 1,000 ML 100 ML IVCONT ×3 (00:41→22:39)
[2025-01-27 03:28] VITALS: BP 107/57; PULSE 81; RESP 17; TEMP 36.8; O2SAT 92
[2025-01-27] MEDS: Sodium Bicarbonate 8.4% 150 MEQ in Dextrose 5 % 850 ML IV (03:49)
[2025-01-27] MEDS: Loperamide HCl 2 MG CAPSULE PO ×3 (05:22→22:37)
[2025-01-27 06:55] VITALS: BP 114/58; PULSE 84; RESP 18; TEMP 36.3; O2SAT 95
[2025-01-27 07:33] LABS: MANUAL DIFF FLAG NO
[2025-01-27] MEDS: ondansetron HCL 4 MG/2 ML VIAL IVPUSH (07:37)
[2025-01-27] MEDS: Apixaban 5 MG TABLET PO ×2 (07:37→20:03)
[2025-01-27] MEDS: Thiamine HCL 100 MG TABLET PO (07:43)
[2025-01-27] MEDS: Folic Acid 1 MG TABLET PO (07:43)
[2025-01-27] MEDS: Budesonide DR 3 MG Capsule 9 MG PO (07:43)
[2025-01-27 07:57] LABS: Basophils Percent Auto 0.5 % (0-2); Eosinophils Percent Auto 0.7 % (0-4); Hematocrit 26.9 % (37.0-47.0); Hemoglobin 9.4 g/dl (12.0-16.0); Imm Gran Abs Auto 0.02 X10*3/uL (0.00-0.03); Imm Gran Pct Auto 0.5 % (0.0-0.4); Lymphocytes Absolute Auto 1.4 X10*3/uL (1.2-4.9); Lymphocytes Percent Auto 32.5 % (20-40); Mean Corpuscular HGB Conc 34.9 g/dl (31.0-35.0); Mean Corpuscular Hemoglobin 30.9 pg (27.0-33.0); Mean Corpuscular Volume 88.5 fL (80.0-98.0); Mean Platelet Volume 10.5 fL (9.4-12.3); Monocytes Absolute Auto 0.6 X10*3/uL (0.1-1.2); Monocytes Percent Auto 13.6 % (2-11); Neutrophils Absolute Auto 2.2 x10*3/uL (2.0-8.3); Neutrophils Percent Auto 52.2 % (45-73); Platelet Count 206 X10*3/uL (160-400); Red Blood Count 3.04 X10*6/uL (4.20-5.50); Red Cell Distribution Width 12.3 % (11.0-16.0); White Blood Count 4.3 X10*3/uL (4.8-10.8)
[2025-01-27 08:37] LABS: Alanine Aminotransferase 36 U/L (0-31); Albumin Level 2.6 g/dL (3.5-5.0); Alkaline Phosphatase 63 U/L (39-117); Anion Gap 11 (12-20); Aspartate Amino Transferase 42 U/L (5-31); Bilirubin Total 0.2 mg/dL (0.0-1.0); Blood Urea Nitrogen 25 mg/dL (9-16); Calcium 6.8 mg/dL (8.4-10.2); Carbon Dioxide 32 mmol/L (22-29); Chloride 107 mmol/L (96-108); Creatinine Clr Calc Pharmacy 47.4; Estimated Glomerular Filt Rate > 60; Glucose Random 135 mg/dL (60-115); Sodium 148 mmol/L (135-145); Total Protein 5.4 g/dL (6.5-8.0)
[2025-01-27 09:24] LABS: Adenovirus F 40/41 Not Detected (Not Detect.); Astrovirus Not Detected (Not Detect.); Campylobacter Not Detected (Not Detect.); Cryptosporidium Not Detected (Not Detect.); Cyclospora cayetanensis Not Detected (Not Detect.); E. coli EAEC Not Detected (Not Detect.); E. coli EPEC Not Detected (Not Detect.); E. coli ETEC Not Detected (Not Detect.); E. coli STEC Not Detected (Not Detect.); Entamoeba histolytica Not Detected (Not Detect.); Giardia lamblia Not Detected (Not Detect.); Norovirus GI/GII Not Detected (Not Detect.); Plesiomonas shigelloides Not Detected (Not Detect.); Rotavirus A Not Detected (Not Detect.); Salmonella Not Detected (Not Detect.); Sapovirus Not Detected (Not Detect.); Shigella sp./EIEC Not Detected (Not Detect.); Vibrio Not Detected (Not Detect.); Vibrio Cholerae Not Detected (Not Detect.); Yersinia enterocolitica Not Detected (Not Detect.)
[2025-01-27] MEDS: Potassium Chloride ER 20 MEQ TAB.ER.PRT 40 MEQ PO (09:29)
[2025-01-27] MEDS: Potassium Chloride/H20 10 MEQ/100 ML PIGGYBACK 100 MEQ IV ×4 (09:31→12:59)
[2025-01-27] MEDS: METHOTREXATE SODIUM 50 MG/2 ML 12.5 MG SUBCUT (09:33)
--- NOTE | 2025-01-27 10:13 | P.PNIM_ITS ---
Subjective Subjective Date of Service: 01/27/25 Interval History: diarrhea Physical Exam 2 Vital Signs: Vital Signs: Last Vital Signs Temp 97.4 F 01/27/25 06:55 Pulse 84 01/27/25 06:55 Resp 18 01/27/25 06:55 BP 114/58 L 01/27/25 06:55 Pulse Ox 95 01/27/25 06:55 O2 Del Method Room Air 01/27/25 06:55 BMI result Body Mass Index 17.9 Const: General: no acute distress Orientation/consciousness: patient oriented x3 Eyes: EOM: EOMs intact bilaterally Neck: Neck: Yes supple Resp: Auscultation: diminished lung sounds Cardio: Rate: regular rate GI: Palpation (GI): Soft to palpation Neuro: General: patient oriented x3 Objective Data Active Medications Apixaban (Apixaban 5 Mg Tablet) 5 mg PO BID [facility] Last Admin: 01/27/25 07:37 Dose: 5 mg Documented By: SUSAN Budesonide (Budesonide Dr 3 Mg Capsule) 9 mg PO DAILY [facility] Last Admin: 01/27/25 07:43 Dose: 9 mg Documented By: SUSAN Carisoprodol (Carisoprodol 350 Mg Tablet) 350 mg PO BID [facility] Last Admin: 01/27/25 09:20 Dose: Not Given Documented By: SUSAN Non-Admin Reason: Patient Refused Folic Acid (Folic Acid 1 Mg Tablet) 1 mg PO DAILY [facility] Last Admin: 01/27/25 07:43 Dose: 1 mg Documented By: SUSAN Dextrose/Sodium Chloride (D51/2ns) 1,000 mls @ 100 mls/hr IVCONT .Q10H [facility] Last Admin: 01/27/25 00:41 Dose: 100 mls/hr Documented By: JOHN Potassium Chloride (Potassium Chloride/H20) 10 meq in 100 mls @ 100 mls/hr IV Q1H [facility] Stop: 01/27/25 12:59 Last Admin: 01/27/25 09:31 Dose: 100 mls/hr Documented By: SUSAN Loperamide HCl (Loperamide Hcl 2 Mg Capsule) 2 mg PO Q4H PRN PRN Reason: Diarrhea Last Admin: 01/27/25 05:22 Dose: 2 mg Documented By: JOHN Melatonin (Melatonin 3 Mg Tablet) 6 mg PO BEDTIME PRN PRN Reason: Insomnia Last Admin: 01/26/25 22:43 Dose: 6 mg Documented By: JOHN Montelukast Sodium (Montelukast Sodium 10 Mg Tablet) 10 mg PO BEDTIME [facility] Last Admin: 01/26/25 22:42 Dose: 10 mg Documented By: JOHN Ondansetron HCl (Ondansetron Hcl 4 Mg/2 Ml Vial) 4 mg IVPUSH Q6H PRN PRN Reason: Nausea Last Admin: 01/27/25 07:37 Dose: 4 mg Documented By: SUSAN Sodium Chloride (0.9 % Sodium Chloride Flush 3 Ml Syringe) 3 ml IVFLUSH QSHIFT [facility] Last Admin: 01/27/25 09:18 Dose: Not Given Documented By: SUSAN Non-Admin Reason: IV Running Thiamine HCl (Thiamine Hcl 100 Mg Tablet) 100 mg PO DAILY [facility] Last Admin: 01/27/25 07:43 Dose: 100 mg Documented By: SUSAN Labs 01/27/25 06:34 01/27/25 06:34 Labs: Laboratory Results - last 24 hr 01/26/25 01/27/25 14:36 06:34 MCV 88.5 MCH 30.9 MCHC 34.9 RDW 12.3 Plt Count 206 D MPV 10.5 Immature Gran % (Auto) 0.5 H Neut % (Auto) 52.2 Lymph % (Auto) 32.5 Wise % (Auto) 13.6 H Eos % (Auto) 0.7 Baso % (Auto) 0.5 Lymph # (Auto) 1.4 Wise # (Auto) 0.6 Eos # (Auto) 0.0 Baso # (Auto) 0.0 Abs Immat Gran (auto) 0.02 Absolute Neuts (auto) 2.2 Absolute Nucleated RBC 0.000 Nucleated RBC % (auto) 0.0 Anion Gap 11 L Estim Creat Clear Calc 47.4 Estimated GFR > 60 Random Glucose 135 H Calcium 6.8 L D Total Bilirubin 0.2 AST 42 H ALT 36 H Alkaline Phosphatase 63 Total Protein 5.4 L Albumin 2.6 L Stool Leukocytes, Qual NEGATIVE Stl C. cayetanensis PCR Not Detected Stool Rotavirus A PCR Not Detected Stl Adenov F 40/41 PCR Not Detected Stool Astrovirus (PCR) Not Detected Stool Campylobacter PCR Not Detected Stool Cryptosporidium PCR Not Detected Stl Sh Tox Pr E STEC PCR Not Detected Stool E coli O157 PCR Not applicable Stl Enterotoxigenic E PCR Not Detected Stool EPEC (PCR) Not Detected Stool EAEC (PCR) Not Detected Stl E. histolytica PCR Not Detected Stool Giardia Lamblia PCR Not Detected Stl P. shigelloides PCR Not Detected Stool Salmonella PCR Not Detected Stool Sapovirus (PCR) Not Detected Stl Shigella/EIEC PCR Not Detected St Y.enterocolitica PCR Not Detected Stool Vibrio (PCR) Not Detected Stl Vibrio cholerae PCR Not Detected Stl Norovirus GI/GII PCR Not Detected C. difficile Tox B Gene NEGATIVE Assessment and Plan (1) [place] (acute kidney injury): Status: Acute Plan 78F PMH protein calorie malnutrition due to Crohn's, DVT, fibromyalgia, history of C diff, hypertension presented with weakness and diarrhea found to be in severe acute kidney injury Acute kidney injury complicated by severe acute metabolic acidosis due to Crohn's with diarrhea Resolved with hydration Discontinued bicarb drip Hold NSAIDs, PPI, ARB Acute hypernatremia, hypokalemia Replace and monitor Protein calorie malnutrition Encourage p.o. 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
[2025-01-27 11:01] VITALS: BP 133/60; PULSE 74; RESP 18; TEMP 36.9; O2SAT 92
[2025-01-27 11:22] VITALS: BMI 17.9
--- NOTE | 2025-01-27 11:36 | MHC.CLN ---
RE; CONSULT PT IS MODERATELY MALNOURISHED PT WITH MILDLY DEPLETED SUBCUTANEOUS FAT AND MUSCLE MASS WITH BMI 17.9 AND PREVIOUSLY PT WITH 17% SIGNIFICANT WT LOSS X 5 MONTHS WITH CHRONIC POOR PO INTAKE (SEE NUTRITION ASSESSMENT DATED 10/03/24) AND UNRESOLVED CHRONIC DIARRHEA PO INTAKE 75% X 2 MEALS DIET RX: LOW FIBER LACTOSE CONTROLLED-APPROPRIATE SPOKE WITH PT REGARDING DIET AND PO INTAKE. PT IS NOT MEETING ESTIMATED KCAL/PROTEIN NEEDS X 6 MONTHS. PT WITH VERY RESTRICTIVE FOOD PREFERENCES R/T CHRONIC DIARRHEA. PT RECEPTIVE TO ENSURE TID -DRINKS AT HOME AND ADDS TO COFFEE. SUPP WILL PROVIDE 1050KCALS, 60G PROTEIN MONITOR PO INTAKE AND ENCOURAGE SUPPLEMENTS
[2025-01-27 12:27] LABS: Potassium 2.1 mmol/L (3.3-5.1)
[2025-01-27 14:38] LABS: Blood Urea Nitrogen 17 mg/dL (9-16); Calcium 6.7 mg/dL (8.4-10.2); Creatinine Clr Calc Pharmacy 50.9; Estimated Glomerular Filt Rate > 60; Glucose Random 91 mg/dL (60-115)
[2025-01-27 15:01] LABS: Anion Gap 8 (12-20); Carbon Dioxide 33 mmol/L (22-29); Chloride 108 mmol/L (96-108); Potassium 3.3 mmol/L (3.3-5.1); Sodium 146 mmol/L (135-145)
[2025-01-27 15:36] VITALS: BP 142/70; PULSE 79; RESP 18; TEMP 36.6; O2SAT 95
--- NOTE | 2025-01-27 15:39 | MHC.CM.PN ---
EMR reviewed and per MD rounds, pt is not medically cleared for discharge due to management of severe hypokalemia.
[2025-01-27] MEDS: Promethazine HCL 25 MG TABLET PO ×2 (16:50→23:16)
[2025-01-27] MEDS: HYDROmorphone HCl 2 MG TABLET 1 MG PO (18:34)
[2025-01-27 19:26] VITALS: BP 155/72; PULSE 78; RESP 18; TEMP 36.4; O2SAT 98
[2025-01-27 23:05] VITALS: BP 160/77; PULSE 81; RESP 18; TEMP 36.8; O2SAT 92
[2025-01-27] MEDS: carisoprodoL 350 MG TABLET PO (23:16)
[2025-01-27] MEDS: Montelukast Sodium 10 MG TABLET PO (23:16)
[2025-01-27] MEDS: Melatonin 3 MG TABLET 6 MG PO (23:16)
[2025-01-28 03:53] VITALS: BP 136/65; PULSE 82; RESP 14; TEMP 37.4; O2SAT 95
[2025-01-28] MEDS: ondansetron HCL 4 MG/2 ML VIAL IVPUSH (06:37)
[2025-01-28 07:31] VITALS: BP 155/73; PULSE 76; RESP 14; TEMP 37.2; O2SAT 91
[2025-01-28 07:34] LABS: Anion Gap 11 (12-20); Blood Urea Nitrogen 13 mg/dL (9-16); Calcium 6.5 mg/dL (8.4-10.2); Carbon Dioxide 30 mmol/L (22-29); Chloride 106 mmol/L (96-108); Creatinine Clr Calc Pharmacy 59.6; Estimated Glomerular Filt Rate > 60; Glucose Random 95 mg/dL (60-115); Magnesium 1.2 mg/dL (1.6-2.6); Potassium 2.7 mmol/L (3.3-5.1); Sodium 144 mmol/L (135-145)
[2025-01-28 07:40] LABS: Hemoglobin 9.4 g/dl (12.0-16.0); Mean Corpuscular HGB Conc 33.6 g/dl (31.0-35.0); Mean Corpuscular Hemoglobin 31.3 pg (27.0-33.0); Mean Corpuscular Volume 93.3 fL (80.0-98.0); Mean Platelet Volume 10.9 fL (9.4-12.3); Platelet Count 206 X10*3/uL (160-400); Red Cell Distribution Width 12.9 % (11.0-16.0); White Blood Count 4.4 X10*3/uL (4.8-10.8)
[2025-01-28] MEDS: carisoprodoL 350 MG TABLET PO ×2 (07:49→22:57)
[2025-01-28] MEDS: Potassium Chloride ER 20 MEQ TAB.ER.PRT 40 MEQ PO (07:49)
[2025-01-28] MEDS: Thiamine HCL 100 MG TABLET PO (07:50)
[2025-01-28] MEDS: Folic Acid 1 MG TABLET PO (07:50)
[2025-01-28] MEDS: Budesonide DR 3 MG Capsule 9 MG PO (07:50)
[2025-01-28] MEDS: Apixaban 5 MG TABLET PO ×2 (07:50→20:21)
[2025-01-28] MEDS: Magnesium Oxide 400 MG TABLET PO ×2 (07:50→18:58)
[2025-01-28] MEDS: Promethazine HCL 25 MG TABLET PO ×3 (07:50→22:57)
[2025-01-28] MEDS: Potassium Chloride/H20 10 MEQ/100 ML PIGGYBACK 100 MEQ IV ×2 (07:52→17:05)
[2025-01-28] MEDS: 0.9 % Sodium Chloride Flush 3 ML SYRINGE IVFLUSH (08:01)
[2025-01-28] MEDS: Magnesium Sulfate/H2O 2 GM/50 ML PIGGYBACK IV (08:13)
--- NOTE | 2025-01-28 08:25 | HO.PM.IMPN ---
Subjective Subjective Date of Service: 01/28/25 Interval History: n/v less diarrhea Physical Exam Vital Signs: Vital Signs: Last Vital Signs Temp 98.9 F 01/28/25 07:31 Pulse 76 01/28/25 07:31 Resp 14 01/28/25 07:31 BP 155/73 H 01/28/25 07:31 Pulse Ox 91 L 01/28/25 07:31 O2 Del Method Room Air 01/28/25 07:31 BMI result Body Mass Index 17.9 Const: General: no acute distress Orientation/consciousness: patient oriented x3 Eyes: EOM: EOMs intact bilaterally Neck: Neck: Yes supple Resp: Auscultation: diminished lung sounds Cardio: Rate: regular rate GI: Palpation (GI): Soft to palpation Neuro: General: patient oriented x3 Objective Data Active Medications Apixaban (Apixaban 5 Mg Tablet) 5 mg PO BID [facility] Last Admin: 01/28/25 07:50 Dose: 5 mg Documented By: BULL Budesonide (Budesonide Dr 3 Mg Capsule) 9 mg PO DAILY [facility] [place] Last Admin: 01/28/25 07:50 Dose: 9 mg Documented By: BULL Carisoprodol (Carisoprodol 350 Mg Tablet) 350 mg PO BID [facility] [place] Last Admin: 01/28/25 07:49 Dose: 350 mg Documented By: BULL Folic Acid (Folic Acid 1 Mg Tablet) 1 mg PO DAILY [facility] [place] Last Admin: 01/28/25 07:50 Dose: 1 mg Documented By: BULL Hydromorphone HCl (Hydromorphone Hcl 2 Mg Tablet) 1 mg PO Q4H PRN PRN Reason: Pain, Severe (Pain Scale 7-10) Last Admin: 01/27/25 18:34 Dose: 1 mg Documented By: MELANY Potassium Chloride (Potassium Chloride/H20) 10 meq in 100 mls @ 100 mls/hr IV Q1H [facility] [place] Stop: 01/28/25 11:29 Last Admin: 01/28/25 07:52 Dose: 100 mls/hr Documented By: BULL Magnesium Sulfate (Magnesium Sulfate/H2o) 2 gm in 50 mls @ 25 mls/hr IV ONCE ONE Stop: 01/28/25 09:25 Last Admin: 01/28/25 08:13 Dose: 25 mls/hr Documented By: BULL Loperamide HCl (Loperamide Hcl 2 Mg Capsule) 2 mg PO Q4H PRN PRN Reason: Diarrhea Last Admin: 01/27/25 22:37 Dose: 2 mg Documented By: ANTOINBryn Magnesium Oxide (Magnesium Oxide 400 Mg Tablet) 400 mg PO BIDPC [facility] [place] Last Admin: 01/28/25 07:50 Dose: 400 mg Documented By: BULL Melatonin (Melatonin 3 Mg Tablet) 6 mg PO BEDTIME PRN PRN Reason: Insomnia Last Admin: 01/27/25 23:16 Dose: 6 mg Documented By: ANTOINBryn Montelukast Sodium (Montelukast Sodium 10 Mg Tablet) 10 mg PO BEDTIME [facility] [place] Last Admin: 01/27/25 23:16 Dose: 10 mg Documented By: ANTKATEY Ondansetron HCl (Ondansetron Hcl 4 Mg/2 Ml Vial) 4 mg IVPUSH Q6H PRN PRN Reason: Nausea Last Admin: 01/28/25 06:37 Dose: 4 mg Documented By: MALCOM Oxycodone HCl (Oxycodone Hcl Immed Release 5 Mg Tablet) 5 mg PO Q6H PRN PRN Reason: Pain, Moderate(Pain Scale 4-6) Promethazine HCl (Promethazine Hcl 25 Mg Tablet) 25 mg PO Q8H [facility] [place] Last Admin: 01/28/25 07:50 Dose: 25 mg Documented By: BULL Sodium Chloride (0.9 % Sodium Chloride Flush 3 Ml Syringe) 3 ml IVFLUSH QSHIFT [facility] [place] Last Admin: 01/28/25 08:01 Dose: 3 ml Documented By: BULL Thiamine HCl (Thiamine Hcl 100 Mg Tablet) 100 mg PO DAILY [facility] [place] Last Admin: 01/28/25 07:50 Dose: 100 mg Documented By: BULL Labs 01/28/25 05:59 01/28/25 05:59 Labs: Laboratory Results - last 24 hr 01/26/25 01/27/25 01/27/25 14:36 06:34 14:14 MCV MCH MCHC RDW Plt Count MPV Absolute Nucleated RBC Nucleated RBC % (auto) Anion Gap 11 L 8 L Estim Creat Clear Calc 47.4 50.9 Estimated GFR > 60 > 60 Random Glucose 135 H 91 Calcium 6.8 L D 6.7 L Magnesium Total Bilirubin 0.2 AST 42 H ALT 36 H Alkaline Phosphatase 63 Total Protein 5.4 L Albumin 2.6 L Stl C. cayetanensis PCR Not Detected Stool Rotavirus A PCR Not Detected Stl Adenov F 40/41 PCR Not Detected Stool Astrovirus (PCR) Not Detected Stool Campylobacter PCR Not Detected Stool Cryptosporidium PCR Not Detected Stl Sh Tox Pr E STEC PCR Not Detected Stool E coli O157 PCR Not applicable Stl Enterotoxigenic E PCR Not Detected Stool EPEC (PCR) Not Detected Stool EAEC (PCR) Not Detected Stl E. histolytica PCR Not Detected Stool Giardia Lamblia PCR Not Detected Stl P. shigelloides PCR Not Detected Stool Salmonella PCR Not Detected Stool Sapovirus (PCR) Not Detected Stl Shigella/EIEC PCR Not Detected St Y.enterocolitica PCR Not Detected Stool Vibrio (PCR) Not Detected Stl Vibrio cholerae PCR Not Detected Stl Norovirus GI/GII PCR Not Detected 01/28/25 05:59 MCV 93.3 MCH 31.3 MCHC 33.6 RDW 12.9 Plt Count 206 MPV 10.9 Absolute Nucleated RBC 0.000 Nucleated RBC % (auto) 0.0 Anion Gap 11 L Estim Creat Clear Calc 59.6 Estimated GFR > 60 Random Glucose 95 Calcium 6.5 L Magnesium 1.2 L* Total Bilirubin AST ALT Alkaline Phosphatase Total Protein Albumin Stl C. cayetanensis PCR Stool Rotavirus A PCR Stl Adenov F 40/41 PCR Stool Astrovirus (PCR) Stool Campylobacter PCR Stool Cryptosporidium PCR Stl Sh Tox Pr E STEC PCR Stool E coli O157 PCR Stl Enterotoxigenic E PCR Stool EPEC (PCR) Stool EAEC (PCR) Stl E. histolytica PCR Stool Giardia Lamblia PCR Stl P. shigelloides PCR Stool Salmonella PCR Stool Sapovirus (PCR) Stl Shigella/EIEC PCR St Y.enterocolitica PCR Stool Vibrio (PCR) Stl Vibrio cholerae PCR Stl Norovirus GI/GII PCR Assessment and Plan (1) [place] (acute kidney injury): Status: Acute Plan 78F PMH protein calorie malnutrition due to Crohn's, DVT, fibromyalgia, history of C diff, hypertension presented with weakness and diarrhea found to be in severe acute kidney injury Acute kidney injury complicated by severe acute metabolic acidosis due to Crohn's with diarrhea Resolved with hydration Discontinued bicarb drip Hold NSAIDs, PPI, ARB Acute hypernatremia resolved with hypotonic fluids acute recurrent hypokalemia, hypomagnesemia Replace and monitor Protein calorie malnutrition Encourage p.o. 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
[2025-01-28] MEDS: Potassium Chloride/H20 10 MEQ/100 ML PIGGYBACK 33 MEQ IV ×2 (10:21→13:32)
[2025-01-28 11:31] VITALS: BP 140/72; PULSE 80; RESP 12; TEMP 37; O2SAT 94
[2025-01-28 15:23] VITALS: BP 166/78; PULSE 79; RESP 14; TEMP 36.5; O2SAT 95
[2025-01-28 19:31] VITALS: BP 160/74; PULSE 78; RESP 16; TEMP 36.6; O2SAT 94
[2025-01-28] MEDS: Metoclopramide HCl 10 MG/2 ML VIAL 5 MG IVPUSH (20:32)
[2025-01-28] MEDS: Melatonin 3 MG TABLET 6 MG PO (22:59)
[2025-01-28] MEDS: Montelukast Sodium 10 MG TABLET PO (22:59)
[2025-01-28 23:34] VITALS: BP 148/70; PULSE 76; RESP 16; TEMP 36.9; O2SAT 92
[2025-01-29] MEDS: 0.9 % Sodium Chloride Flush 3 ML SYRINGE IVFLUSH ×4 (00:29→19:25)
[2025-01-29 03:48] VITALS: BP 155/73; PULSE 77; RESP 14; TEMP 36.3; O2SAT 96
[2025-01-29 07:30] VITALS: BP 169/85; PULSE 80; RESP 12; TEMP 37.1; O2SAT 92
[2025-01-29 07:43] LABS: Hematocrit 33.8 % (37.0-47.0); Hemoglobin 11.2 g/dl (12.0-16.0); Mean Corpuscular HGB Conc 33.1 g/dl (31.0-35.0); Mean Corpuscular Hemoglobin 31.2 pg (27.0-33.0); Mean Corpuscular Volume 94.2 fL (80.0-98.0); Platelet Count 200 X10*3/uL (160-400); Red Blood Count 3.59 X10*6/uL (4.20-5.50); Red Cell Distribution Width 13.2 % (11.0-16.0); White Blood Count 4.1 X10*3/uL (4.8-10.8)
[2025-01-29] MEDS: carisoprodoL 350 MG TABLET PO (08:22)
[2025-01-29] MEDS: Budesonide DR 3 MG Capsule 9 MG PO (08:22)
[2025-01-29] MEDS: Promethazine HCL 25 MG TABLET PO ×2 (08:22→16:34)
[2025-01-29] MEDS: Apixaban 5 MG TABLET PO ×2 (08:23→19:24)
[2025-01-29] MEDS: Folic Acid 1 MG TABLET PO (08:23)
[2025-01-29] MEDS: Thiamine HCL 100 MG TABLET PO (08:23)
[2025-01-29] MEDS: Loperamide HCl 2 MG CAPSULE PO ×3 (08:25→22:56)
[2025-01-29 08:26] LABS: Anion Gap 13 (12-20); Blood Urea Nitrogen 8 mg/dL (9-16); Calcium 7.7 mg/dL (8.4-10.2); Carbon Dioxide 29 mmol/L (22-29); Chloride 104 mmol/L (96-108); Creatinine Clr Calc Pharmacy 58.6; Estimated Glomerular Filt Rate > 60; Glucose Random 71 mg/dL (60-115); Magnesium 1.6 mg/dL (1.6-2.6); Potassium 3.5 mmol/L (3.3-5.1); Sodium 142 mmol/L (135-145)
[2025-01-29] MEDS: Magnesium Oxide 400 MG TABLET PO (08:53)
--- NOTE | 2025-01-29 09:35 | HO.PM.IMPN ---
Subjective Subjective Date of Service: 01/29/25 Interval History: left facial pain Physical Exam Vital Signs: Vital Signs: Last Vital Signs Temp 98.8 F 01/29/25 07:30 Pulse 80 01/29/25 07:30 Resp 12 01/29/25 07:30 BP 169/85 H 01/29/25 07:30 Pulse Ox 92 01/29/25 07:30 O2 Del Method Room Air 01/29/25 07:30 BMI result Body Mass Index 17.9 Const: General: no acute distress Orientation/consciousness: patient oriented x3 Eyes: EOM: EOMs intact bilaterally Neck: Neck: Yes supple Resp: Auscultation: diminished lung sounds Cardio: Rate: regular rate GI: Palpation (GI): Soft to palpation Neuro: General: patient oriented x3 Objective Data Active Medications Apixaban (Apixaban 5 Mg Tablet) 5 mg PO BID [facility] Last Admin: 01/29/25 08:23 Dose: 5 mg Documented By: BULL Budesonide (Budesonide Dr 3 Mg Capsule) 9 mg PO DAILY [facility] Last Admin: 01/29/25 08:22 Dose: 9 mg Documented By: BULL Carisoprodol (Carisoprodol 350 Mg Tablet) 350 mg PO BID [facility] Last Admin: 01/29/25 08:22 Dose: 350 mg Documented By: BULL Folic Acid (Folic Acid 1 Mg Tablet) 1 mg PO DAILY [facility] Last Admin: 01/29/25 08:23 Dose: 1 mg Documented By: BULL Hydromorphone HCl (Hydromorphone Hcl 2 Mg Tablet) 1 mg PO Q4H PRN PRN Reason: Pain, Severe (Pain Scale 7-10) Last Admin: 01/27/25 18:34 Dose: 1 mg Documented By: MELANY Loperamide HCl (Loperamide Hcl 2 Mg Capsule) 2 mg PO Q4H PRN PRN Reason: Diarrhea Last Admin: 01/29/25 08:25 Dose: 2 mg Documented By: BULL Magnesium Oxide (Magnesium Oxide 400 Mg Tablet) [address] [facility] Melatonin (Melatonin 3 Mg Tablet) 6 mg PO BEDTIME PRN PRN Reason: Insomnia Last Admin: 01/28/25 22:59 Dose: 6 mg Documented By: MELANY Metoclopramide HCl (Metoclopramide Hcl 10 Mg/2 Ml Vial) 5 mg IVPUSH Q6H PRN PRN Reason: nausa Last Admin: 01/28/25 20:32 Dose: 5 mg Documented By: MELANY Montelukast Sodium (Montelukast Sodium 10 Mg Tablet) 10 mg PO BEDTIME [facility] Last Admin: 01/28/25 22:59 Dose: 10 mg Documented By: MELANY Ondansetron HCl (Ondansetron Hcl 4 Mg/2 Ml Vial) 4 mg IVPUSH Q6H PRN PRN Reason: Nausea Last Admin: 01/28/25 06:37 Dose: 4 mg Documented By: ANTOINC Oxycodone HCl (Oxycodone Hcl Immed Release 5 Mg Tablet) 5 mg PO Q6H PRN PRN Reason: Pain, Moderate(Pain Scale 4-6) Promethazine HCl (Promethazine Hcl 25 Mg Tablet) 25 mg PO Q8H [facility] Last Admin: 01/29/25 08:22 Dose: 25 mg Documented By: BULL Sodium Chloride (0.9 % Sodium Chloride Flush 3 Ml Syringe) 3 ml IVFLUSH QSHIFT [facility] Last Admin: 01/29/25 08:23 Dose: 3 ml Documented By: BULL Thiamine HCl (Thiamine Hcl 100 Mg Tablet) 100 mg PO DAILY [facility] Last Admin: 01/29/25 08:23 Dose: 100 mg Documented By: BULL Labs 01/29/25 05:56 01/29/25 05:56 Labs: Laboratory Results - last 24 hr 01/29/25 05:56 MCV 94.2 MCH 31.2 MCHC 33.1 RDW 13.2 Plt Count 200 MPV 11.0 Absolute Nucleated RBC 0.000 Nucleated RBC % (auto) 0.0 Anion Gap 13 Estim Creat Clear Calc 58.6 Estimated GFR > 60 Random Glucose 71 Calcium 7.7 L D Magnesium 1.6 Assessment and Plan (1) [place] (acute kidney injury): Status: Acute Plan 78F PMH protein calorie malnutrition due to Crohn's, DVT, fibromyalgia, history of C diff, hypertension presented with weakness and diarrhea found to be in severe acute kidney injury Acute kidney injury complicated by severe acute metabolic acidosis due to Crohn's with diarrhea Resolved with hydration Hold NSAIDs, PPI, ARB Acute hypernatremia resolved with hypotonic fluids acute recurrent hypokalemia, hypomagnesemia Replace and monitor Protein calorie malnutrition Encourage p.o. intake History of DVT related to PICC Continue apixaban 1 more month Full code reason for continued hospitalization: hypokalemia Quality Stroke Does the patient have a stroke diagnosis?: No VTE Prior VTE?: No VTE Risk Level:: Medical - moderate - high VTE Device Contraindication: Treatment Not Indicated VTE Drug Contraindication: N/A - Med Ordered
[2025-01-29] MEDS: Potassium Chloride ER 20 MEQ TAB.ER.PRT 40 MEQ PO (10:53)
[2025-01-29 11:11] VITALS: BP 158/76; PULSE 77; RESP 18; TEMP 36.2; O2SAT 96
[2025-01-29 15:13] VITALS: BP 151/72; PULSE 79; RESP 16; TEMP 37.2; O2SAT 94
[2025-01-29] MEDS: Magnesium Oxide 400 MG TABLET 800 MG PO (16:34)
[2025-01-29 19:01] VITALS: BP 148/81; PULSE 85; RESP 14; TEMP 37.5; O2SAT 97
[2025-01-29] MEDS: Montelukast Sodium 10 MG TABLET PO (19:25)
[2025-01-29] MEDS: Simethicone 80 MG TAB.CHEW PO (21:21)
[2025-01-30] MEDS: carisoprodoL 350 MG TABLET PO (00:05)
[2025-01-30] MEDS: Melatonin 3 MG TABLET 6 MG PO (00:06)
[2025-01-30] MEDS: Promethazine HCL 25 MG TABLET PO ×2 (00:10→08:47)
[2025-01-30 01:13] VITALS: BP 151/69; PULSE 115; RESP 18; TEMP 37.1; O2SAT 93
[2025-01-30 04:00] VITALS: BP 161/75; PULSE 82; RESP 16; TEMP 36.9; O2SAT 96
[2025-01-30] MEDS: Loperamide HCl 2 MG CAPSULE PO (04:23)
[2025-01-30] MEDS: oxyCODONE HCl Immed Release 5 MG TABLET PO (05:26)
[2025-01-30 07:14] VITALS: BP 176/90; PULSE 86; RESP 18; TEMP 37.2; O2SAT 96
[2025-01-30] MEDS: Budesonide DR 3 MG Capsule 9 MG PO (08:47)
[2025-01-30] MEDS: HYDROmorphone HCl 2 MG TABLET 1 MG PO (08:47)
[2025-01-30 08:48] LABS: Hematocrit 39.4 % (37.0-47.0); Hemoglobin 12.7 g/dl (12.0-16.0); Mean Corpuscular HGB Conc 32.2 g/dl (31.0-35.0); Mean Corpuscular Hemoglobin 30.6 pg (27.0-33.0); Mean Corpuscular Volume 94.9 fL (80.0-98.0); Mean Platelet Volume 10.4 fL (9.4-12.3); Platelet Count 178 X10*3/uL (160-400); Red Blood Count 4.15 X10*6/uL (4.20-5.50); Red Cell Distribution Width 13.1 % (11.0-16.0); White Blood Count 7.2 X10*3/uL (4.8-10.8)
[2025-01-30] MEDS: Magnesium Oxide 400 MG TABLET 800 MG PO (08:48)
[2025-01-30] MEDS: 0.9 % Sodium Chloride Flush 3 ML SYRINGE IVFLUSH (08:48)
[2025-01-30] MEDS: Thiamine HCL 100 MG TABLET PO (08:48)
[2025-01-30] MEDS: Folic Acid 1 MG TABLET PO (08:48)
[2025-01-30] MEDS: Apixaban 5 MG TABLET PO (08:48)
[2025-01-30 09:05] LABS: Anion Gap 14 (12-20); Blood Urea Nitrogen 7 mg/dL (9-16); Calcium 8.4 mg/dL (8.4-10.2); Carbon Dioxide 25 mmol/L (22-29); Chloride 105 mmol/L (96-108); Creatinine Clr Calc Pharmacy 58.6; Estimated Glomerular Filt Rate > 60; Glucose Random 68 mg/dL (60-115); Magnesium 1.6 mg/dL (1.6-2.6); Potassium 3.5 mmol/L (3.3-5.1); Sodium 140 mmol/L (135-145)
--- NOTE | 2025-01-30 09:18 | PM.DS ---
DS: Providers Provider Date of Service: 01/30/25 Date of admission: 01/25/25 23:26 Date of discharge: 01/30/25 Primary care physician: Parvez Altamirano MD Consults: 01/26/25 05:29 Consult to Gastroenterology Routine Consulting Provider: Fern Blackburn Reason for consultation: Diarrhea Consult to Nephrology Routine Consulting Provider: [facility] Reason for consultation: leo; oliguria DS: Diagnosis Discharge Diagnosis (1) [place] (acute kidney injury): Status: Acute DS: Summary Hospital Course Hospital Course: from initial hpi: 74-year-old female with a past medical history of protein calorie malnutrition DVT fibromyalgia, chronic diarrhea, osteoporosis, hypertension, history of C diff presented to the hospital today with a chief complaint of diarrhea. Patient mentions that for the past week she has been having multiple episodes of diarrhea -about 15 episodes per day. Has been trying to keep up fluids. Reports abdominal discomfort. Denies any blood in the stool. Stool loose and watery. patient mentioned that she has been having chronic diarrhea- has been following with Dr. Blackburn with Gastroenterology. Also has seen viscosity inspector in [place]. Initially presumed to be Crohn's disease but tests resulted negative. Has been having these episodes of diarrhea since March of 2024. In September she was started on budesonide with improvement in her diarrheal illness. Last week she ran out of the budesonide and has had difficulty filling 18 due to concerns for prescription issues. Since then he has been started have multiple episodes of diarrhea. She finally got the budesonide prescription and she took it yesterday and immediately she has her diarrhea improved. Mentions that for the past 1 day she has not Peed urine. Denies any nausea or vomiting. Denies any fevers and chills. Denies any chest pain or palpitations. Denies any lightheadedness or dizziness. Review of all other systems is negative except mentioned above ER course: Per ER team, patient has appeared to be dehydrated, cachectic, blood pressure is stable. CT abdomen pelvis showed no acute intra-abdominal process. Labs noted to have elevated creatinine of 4.4 compared to her baseline of 0.9. Bladder scan showed no urine. Patient reported right flank pain. Also severe metabolic acidosis with bicarb of 7 and pH of 7.1. Patient was started on IV fluids and sodium bicarb. On the follow-up labs is serum bicarb improved to 19. Creatinine improved to 2.6. Patient has started to make urine. Gastroenterology on-call and Nephrology on-call was notified. hospital course: Patient was admitted for acute kidney injury complicated by severe acute metabolic acidosis due to Crohn's with diarrhea. Was given IV hydration with bicarbonate, NSAIDs PPI and ARB were held. Creatinine returned to normal and acidosis resolved. Diarrhea slowed down. For acute hypernatremia resolved with hypotonic fluids. Acute recurrent hypokalemia and hypomagnesemia were replaced and patient will continue supplement on discharge. For moderate protein calorie malnutrition p.o. intake is encouraged. For history of DVT related to PICC line patient will continue apixaban for 1 more month. Patient is feeling better and will be discharged home. Time Attestation Discharge Coordination Time (in mins): 37 Quality: Safe Use of Opioids Does Pt have an Active Cancer Diagnosis on the Problem List?: No Quality: Stroke Does the patient have a stroke diagnosis?: No Physical Exam Vital Signs: Vital Signs: Last Vital Signs Temp 99.0 F 01/30/25 07:14 Pulse 86 01/30/25 07:14 Resp 18 01/30/25 07:14 BP 176/90 H 01/30/25 07:14 Pulse Ox 96 01/30/25 07:14 O2 Del Method Room Air 01/30/25 07:14 BMI result Body Mass Index 17.9 Const: General: no acute distress Orientation/consciousness: patient oriented x3 Eyes: EOM: EOMs intact bilaterally Neck: Neck: Yes supple Resp: Auscultation: diminished lung sounds Cardio: Rate: regular rate GI: Palpation (GI): Soft to palpation Neuro: General: patient oriented x3 DS: Data Data Completed and Pending Completed studies during hospitalization [Text1]: Procedures Excision of Duodenum, Via Natural or Artificial Opening Endoscopic, Diagnostic (06/03/24) Excision of Left Large Intestine, Via Natural or Artificial Opening Endoscopic, Diagnostic (06/03/24) Excision of Right Large Intestine, Via Natural or Artificial Opening Endoscopic, Diagnostic (06/03/24) Excision of Stomach, Pylorus, Via Natural or Artificial Opening Endoscopic, Diagnostic (06/03/24) Excision of Transverse Colon, Via Natural or Artificial Opening Endoscopic, Diagnostic (06/03/24) Insertion of Infusion Device into Superior Vena Cava, Percutaneous Approach (09/30/24) Ultrasonography of Superior Vena Cava, Guidance (09/30/24) Labs on day of discharge: Laboratory Results - last 24 hr 01/30/25 01/30/25 08:13 08:29 WBC 7.2 RBC 4.15 L Hgb 12.7 Hct 39.4 MCV 94.9 MCH 30.6 MCHC 32.2 RDW 13.1 Plt Count 178 MPV 10.4 Absolute Nucleated RBC 0.000 Nucleated RBC % (auto) 0.0 Sodium 140 Potassium 3.5 Chloride 105 Carbon Dioxide 25 Anion Gap 14 BUN 7 L Creatinine 0.60 Estim Creat Clear Calc 58.6 Estimated GFR > 60 Random Glucose 68 Calcium 8.4 D Magnesium 1.6 Discharge Plan Discharge Anticipated Discharge Date/Time: 01/30/25 09:15 Patient Disposition: Home, Self-Care Discharge Diagnosis: leo Referrals: Parvez Benedict MD [Primary Care Provider] - 1 Week Discharge Medications: New magnesium oxide 400 mg (241.3 mg magnesium) Tablet 800 mg PO DAILY Qty: 180 0RF potassium chloride 20 mEq tablet extended release 20 meq PO DAILY Qty: 90 0RF Continued adalimumab-adaz 40 mg/0.4 mL pen injector 40 mg subcut Q2W 28 Days Qty: 0.8 3RF promethazine 25 mg tablet 25 mg PO Q8H PRN (Reason: nausea and vomiting) 30 Days Qty: 60 1RF methotrexate sodium (PF) 25 mg/mL solution 12.5 mg IM QWEEK 30 Days Qty: 2.5 3RF folic acid 1 mg tablet 1 mg PO DAILY 90 Days Qty: 90 1RF montelukast 10 mg tablet 10 mg PO BEDTIME albuterol sulfate 90 mcg/actuation Hfa Aerosol Inhaler 2 puff INHALATION Q6H PRN (Reason: Shortness Of Breath) carisoprodol 350 mg tablet 350 mg PO BID budesonide 3 mg capsule,delayed,extend.release 9 mg PO DAILY loperamide 2 mg capsule PO Q4-6H PRN (Reason: Diarrhea) propranolol 10 mg tablet 10 mg PO TID PRN (Reason: anxiety) Rx Instructions: TAKES ONLY NEEDED FOR ANXIETY melatonin 10 mg Tablet 10 mg PO BEDTIME Eliquis 5 mg tablet 5 mg PO BID thiamine HCl (vitamin B1) 100 mg tablet 100 mg PO DAILY (DME) insulin syringe-needle U-100 [[employer] Syringes] 0.5 mL 31 gauge x 5/16 syringe See Rx Instructions .Route Qty: 10 2RF Rx Instructions: As directed Discontinued omeprazole 20 mg capsule,delayed release(DR/EC) 20 mg PO BID@0630,1630 Rx Instructions: TAKES AT 0630 AND 2100 celecoxib 100 mg capsule 100 mg PO BEDTIME Rx Instructions: takes at 0000 magnesium oxide 250 mg magnesium tablet 250 mg PO DAILY olmesartan [Benicar] 20 mg tablet 10 mg PO DAILY Qty: 30 5RF Discharge Orders: Discharge Order (Routine); Ordered 01/30/25 Ordered By: Florentino Darling Diet: Advance to usual diet Activity on Discharge: As tolerated Stand Alone Forms: Patient Portal Discharge page Print Language: Kiswahili Care Plan Goals: recovery Health Concerns: Chronic diarrhea and electrolyte abnormalities, acute kidney injury Plan of Treatment: Continue potassium magnesium supplements, avoid NSAIDs, holding Arb Assessment: See above
--- NOTE | 2025-01-30 09:28 | MHC.CM.PN ---
PT CLEARED TO DC HOME TODAY WITH NO SERVICES VIA FAMILY TRANSPORT
[2025-01-30 11:02] VITALS: BP 166/79; PULSE 94; RESP 18; TEMP 37.2; O2SAT 94
[2025-01-30] MEDS: Albuterol Sulfate 90 MCG 8 GM INHALER 2 PUFF INHALE (11:13)
[2025-02-02 03:59] LABS: Calprotectin, Fecal 100 mcg/g
== END 2025-01-30 13:51 | disposition home or self-care (01) | DRG 386 ==
LOC: HO.ED 01-26 05:43 → HO.EDOVER 01-26 06:06 → HO.IMC 01-26 07:56
PROVIDERS: Emergency Medicine; Physician Assistant; Admitting Provider Hospitalist; Emergency Provider Emergency Medicine; PCP Family Medicine; Visit Provider Internal Medicine
DX: K50.918 Crohn's disease, unspecified, with other complication (principal); E44.0 Moderate protein-calorie malnutrition; E87.21 Acute metabolic acidosis; N17.9 Acute kidney failure, unspecified; Z68.1 Body mass index [BMI] 19.9 or less, adult; R64 Cachexia; E87.6 Hypokalemia; E83.42 Hypomagnesemia; E86.0 Dehydration; T44.5X6A Underdosing of predominantly beta-adrenoreceptor agonists, initial encounter; Z20.822 Contact with and (suspected) exposure to COVID-19; Z86.718 Personal history of other venous thrombosis and embolism; Z79.620 Long term (current) use of immunosuppressive biologic; Z79.631 Long term (current) use of antimetabolite agent; Z79.899 Other long term (current) drug therapy
CPT/HCPCS: 0241U; 36415; 71046; 74176; 80048; 80053; 81001; 82550; 82803; 83690; 83735; 83993; 84100; 84484; 85025; 85027; 85652; 86140; 87493; 87507; 89055; 93005; 99285; J0209; J1171; J1720; J2405; J2765; J3475; J3480; J7120

== ENCOUNTER → 2025-01-25 15:03 | Outpatient (BNV) | payer OTHER, SELFPAY | PROVIDERS: PCP Family Medicine; Visit Provider Radiology Diagnostic Radiology | DX: R07.9 Chest pain, unspecified (principal); K52.9 Noninfective gastroenteritis and colitis, unspecified | CPT/HCPCS: 71046; 74176 ==

== ENCOUNTER → 2025-01-25 15:03 | Outpatient (BNV) | payer OTHER, SELFPAY | PROVIDERS: Admitting Provider Hospitalist; Emergency Provider Emergency Medicine; PCP Family Medicine; Visit Provider Internal Medicine Cardiovascular Disease | DX: R94.31 Abnormal electrocardiogram [ECG] [EKG] (principal); R07.9 Chest pain, unspecified; Z13.6 Encounter for screening for cardiovascular disorders | CPT/HCPCS: 93010 ==

== ENCOUNTER → 2025-01-25 23:26 | Outpatient (BNV) | payer OTHER, SELFPAY | PROVIDERS: Admitting Provider Hospitalist; Emergency Provider Emergency Medicine; PCP Family Medicine; Visit Provider Internal Medicine Nephrology | DX: N17.9 Acute kidney failure, unspecified (principal) | CPT/HCPCS: 99223 ==

== ENCOUNTER → 2025-01-25 23:26 | Outpatient (BNV) | payer OTHER, SELFPAY | PROVIDERS: Admitting Provider Hospitalist; Emergency Provider Emergency Medicine; PCP Family Medicine; Visit Provider Internal Medicine | DX: N17.9 Acute kidney failure, unspecified (principal) | CPT/HCPCS: 99233 ==

== ENCOUNTER → 2025-01-25 23:26 | Outpatient (BNV) | payer OTHER, SELFPAY | PROVIDERS: Admitting Provider Hospitalist; Emergency Provider Emergency Medicine; PCP Family Medicine; Visit Provider Internal Medicine Gastroenterology | DX: K50.90 Crohn's disease, unspecified, without complications (principal); R63.4 Abnormal weight loss; N17.9 Acute kidney failure, unspecified; K52.9 Noninfective gastroenteritis and colitis, unspecified | CPT/HCPCS: 99499 ==

== ENCOUNTER 2025-02-08 10:59 | Outpatient (REF) | payer OTHER, SELFPAY ==
--- NOTE | ~2025-02-08 | US_ITS ---
CLINICAL HISTORY: R10.11 - Right upper quadrant pain US abdomen complete Comparison: CT/SR - CT ABDOMEN PELVIS WO IV CON - 01/25/25 18:36 EDT Findings: The visualized pancreas is normal. The aorta and inferior vena cava are normal caliber. The liver is normal in size and increased in echotexture. There is no intrahepatic bile duct dilatation. The common duct is 10 mm in diameter. Status post cholecystectomy. The main portal vein is antegrade. The right kidney is 9.6 cm in length. The left kidney is 9.9 cm in length. Tiny nonshadowing echogenic foci are noted. The spleen is normal. No ascites. IMPRESSION: No acute findings. Mild hepatic steatosis. Tiny nonshadowing echogenic foci within the left kidney may reflect tiny nonobstructing stones. This document has been electronically signed by: Gustavo Looney MD on 02/09/2025 09:37:36
--- NOTE | ~2025-02-08 | US_ITS ---
EXAMINATION: US EXTRACRANIAL CAROTID DUPLEX, BILATERAL CLINICAL INFORMATION: [Occlusion and stenosis of unspecified carotid artery. COMPARISON: Correlated to MRA neck TECHNIQUE: Real-time ultrasound and Doppler techniques (integrating B-mode 2-D vascular images, Doppler spectral analysis and color-flow Doppler imaging) were utilized to interrogate the extracranial carotid arteries, the vertebral arteries and proximal subclavian arteries bilaterally. The degree of stenosis is determined by criteria similar to NASCET. FINDINGS: Right Side: 1. There is calcified atherosclerotic plaque seen in the bifurcation/proximal ICA region. 2. The common carotid artery PSV proximally is 103 cm/s and distally 88 cm/s. 3. The proximal internal carotid artery velocities are 107 cm/s systolic and 31 cm/s diastolic. 4. The proximal external carotid artery PSV is 105 cm/s. 5. The vertebral artery shows antegrade flow. 6. The subclavian artery waveforms are triphasic. Left Side: 1. There is irregular mixed atherosclerotic plaque seen in the bifurcation/proximal ICA region. 2. The common carotid artery PSV proximally is 123 cm/s and distally 90 cm/s. 3. The proximal internal carotid artery velocities are 73 cm/s systolic and 20 cm/s diastolic. 4. The proximal external carotid artery PSV is 134 cm/s. 5. The vertebral artery shows antegrade flow. 6. The subclavian artery waveforms are triphasic. US/US carotid duplex BI IMPRESSION: 1. RIGHT: Calcified plaques, right ICA, representing 0-49% stenosis by ultrasound criteria. 2. LEFT: Irregular mixed plaques, left ICA, representing 0-49% stenosis by ultrasound criteria. Electronically signed by: Robb Johnson MD 02/09/2025 07:15 AM EDT
[2025-02-08 15:14] LABS: MANUAL DIFF FLAG NO
[2025-02-08 15:47] LABS: Basophils Percent Auto 0.4 % (0-2); Eosinophils Absolute Auto 0.1 X10*3/uL (0.0-0.4); Eosinophils Percent Auto 1.7 % (0-4); Hematocrit 38.1 % (37.0-47.0); Hemoglobin 12.2 g/dl (12.0-16.0); Imm Gran Abs Auto 0.01 X10*3/uL (0.00-0.03); Imm Gran Pct Auto 0.2 % (0.0-0.4); Lymphocytes Percent Auto 20.3 % (20-40); Mean Corpuscular Hemoglobin 29.5 pg (27.0-33.0); Monocytes Absolute Auto 0.3 X10*3/uL (0.1-1.2); Monocytes Percent Auto 6.9 % (2-11); Neutrophils Absolute Auto 3.4 x10*3/uL (2.0-8.3); Neutrophils Percent Auto 70.5 % (45-73); Platelet Count 222 X10*3/uL (160-400); Red Blood Count 4.14 X10*6/uL (4.20-5.50); Red Cell Distribution Width 12.8 % (11.0-16.0); White Blood Count 4.8 X10*3/uL (4.8-10.8)
[2025-02-08 16:06] LABS: Alanine Aminotransferase 46 U/L (0-31); Albumin Level 3.5 g/dL (3.5-5.0); Anion Gap 12 (12-20); Aspartate Amino Transferase 46 U/L (5-31); Bilirubin Total 0.3 mg/dL (0.0-1.0); Blood Urea Nitrogen 13 mg/dL (9-16); Calcium 9.1 mg/dL (8.4-10.2); Carbon Dioxide 27 mmol/L (22-29); Chloride 105 mmol/L (96-108); Estimated Glomerular Filt Rate > 60; Glucose Random 85 mg/dL (60-115); Potassium 3.8 mmol/L (3.3-5.1); Sodium 140 mmol/L (135-145); Total Protein 7.5 g/dL (6.5-8.0)
[2025-02-08 16:12] LABS: Alkaline Phosphatase 114 U/L (39-117)
[2025-02-10 08:44] LABS: CA 27.29 36 U/mL (<38)
== END 2025-02-08 11:00 | disposition home or self-care (01) ==
LOC: HO.US 10:59
PROVIDERS: Internal Medicine Medical Oncology; Absent Provider Internal Medicine Gastroenterology; PCP Family Medicine; Visit Provider Internal Medicine Cardiovascular Disease
DX: R10.11 Right upper quadrant pain (principal); I10 Essential (primary) hypertension; I65.23 Occlusion and stenosis of bilateral carotid arteries; K50.90 Crohn's disease, unspecified, without complications; I82.621 Acute embolism and thrombosis of deep veins of right upper extremity
CPT/HCPCS: 36415; 76700; 80053; 82306; 85025; 86300; 93880

== ENCOUNTER → 2025-02-08 11:03 | Outpatient (BNV) | payer OTHER, SELFPAY | PROVIDERS: Absent Provider Internal Medicine Gastroenterology; PCP Family Medicine; Visit Provider Radiology Diagnostic Radiology | DX: R10.11 Right upper quadrant pain (principal); I65.23 Occlusion and stenosis of bilateral carotid arteries | CPT/HCPCS: 76700; 93880 ==

== ENCOUNTER 2025-02-09 10:44 | Outpatient (AMB) | payer OTHER, SELFPAY ==
--- NOTE | 2025-02-09 10:47 | A.OFFVIS_ITS ---
Vital Signs 02/09/25 11:29 Height 5 ft 2 in Weight 100 lb BMI 18.3 BP 150/80 H Blood Pressure Location Lt brachial Position Sitting Pulse 80 Pulse Oximetry (%) 100 Oxygen Delivery Method Room Air Intake Visit Reasons: Hospital follow up Intake Note: Patient follow up after hospitalization for [place]. Patient cc: nauseas with abdominal pain with burning sensation, constipation, some difficulty swallowing. Poor appetite during date due her nauseas and afternoon she can eat because is better appetite. Picker Packer Required: No Accompanied by: Daughter Allergies levofloxacin (From LEVAQUIN) Allergy (Severe, Verified 07/06/25 12:23) Severe itching acetaminophen (From TYLENOL) Allergy (Intermediate, Verified 07/06/25 12:23) Itching epinephrine (EPINEPHRINE) Allergy (Intermediate, Verified 07/06/25 12:23) Tachycardia Penicillins (PENICILLINS) Allergy (Intermediate, Verified 07/06/25 12:23) Itching and hives diclofenac (DICLOFENAC) Allergy (Unknown, Verified 07/06/25 12:23) Hives meperidine (Demerol) Allergy (Unknown, Verified 07/06/25 12:23) Rash penicillin V Allergy (Unknown, Verified 07/06/25 12:23) Rash procaine (From NOVOCAIN) Allergy (Unknown, Verified 07/06/25 12:23) Unknown feathers Allergy (Verified 07/06/25 12:23) Itching wool Allergy (Verified 07/06/25 12:23) Itching Sulfa (Sulfonamide Antibiotics) (SULFA (SULFONAMIDE ANTIBIOTICS)) Adverse Reaction (Intermediate, Verified 07/06/25 12:23) Nausea doxycycline Adverse Reaction (Verified 07/06/25 12:23) Stomach Upset Medication List - Last Reconciled 02/09/25 by Fern Blackburn MD adalimumab-adaz 40 mg (0.4 mL) subcut Q2W 4 weeks albuterol sulfate 90 mcg/actuation 2 puffs inhalation Q6H PRN apixaban (Eliquis) 5 mg PO BID budesonide DR-ER 12 mg (4 x 3 mg) PO DAILY 90 days carisoprodol 350 mg PO BID folic acid 1 mg PO DAILY 90 days insulin syringe-needle U-100 ([facility]ringes) As directed [loperamide PO Q4-6H PRN] magnesium oxide 800 mg (2 x 400 mg (241.3 mg magnesium)) PO DAILY melatonin 10 mg PO BEDTIME methotrexate sodium (PF) 12.5 mg (0.5 mL) IM QWEEK 30 days montelukast 10 mg PO BEDTIME potassium chloride ER 20 mEq PO DAILY promethazine 25 mg PO Q8H PRN 30 days propranolol 10 mg PO TID PRN sodium bicarbonate 1,300 mg (2 x 650 mg) PO BID 30 days thiamine HCl (vitamin B1) 100 mg PO DAILY HPI HPI Hospital follow up: Details: GI clinic visit for this 74 year old female with lupus, HTN, HLD, MVP with valve calcifiation, fibromyalgia, asthma, GERD, and migraine HAs for follow-up of abdominal pain, nausea and diarrhea [place] [facility] [place] and 09/2024 TODAY'S VISIT: Patient cc: Patient follow up after hospitalization for [place]. nauseas with abdominal pain with burning sensation, constipation, some difficulty swallowing. Poor appetite during the day due her nauseas and afternoon she can eat because is better appetite Pt is accompanied by her daughter, Juliane Notes nausea in the am - able to eat Had apple juice in the am Feels constipated - no BM in 48 hrs Had a firm, yellow BM. Had diarrhea last week and doing Ok this week Has not taken any Loperamide this week. PAST VISITS: Appetite is great. When she eats rice, it gets stuck in the throat. No problem with other foods Having a normal BM 1-2 times a day. Also notes dizziness and vertigo (stopped dicyclomine 2 weeks ago). Has been having shooting pains in the ribs and back Notes pains in the ribs radiating to the back - - rib xray ordered. Also has an eye infection and is using antibiotic eye drops Patient cc: chronic abdominal pain, swallowing discomfort. Had a stich in the left lower ribs last night which was very painful - lasted 10 - 15 min Able to eat a regular diet. Seen by Nutrion and advised 1 chocolate milk shake Feels bloated if she eats too much. BMs are regular - notes some abdominal pain after a BM which resolves spontaneously Seen by GI at [facility] and diagniosed with ? Celiac disease Had a relapse on 08/08 with projectile vomiting and diarrhea x hours Had 6-7 BMs and had 1 BM yesterday Gradually improved over the next few days Eating small meals - everything hurts - burning in her intestines She was freezing towards the end [place] exhausted towards the end Has costochondritis Normal BM hurts Complains of mouth sores for years - thought she had nutritional deficiency PT was hospitalized at [facility] from 11/10/24 to 11/14/24 with RUE DVT related to PICC line and treated with Heparin followed by Apixiban. Advised to have PICC line removed after 14 days of anticoagulation and continue oral anticoagulation x 3 months Pt states diarrhea has resolved and has been constipated x 3 weeks Appetite is very good always hungry and taking small meals. Appetite and taste is coming back Has gained 1 lb over the last week (was 98 lbs last week) Had to use a cane for a while since she was feeling dizzy Patient can have a constant throat irritation (? post nasal drip) and denies heartburn, dysphagia. Takes a nausea pill once a day Notes abdominal soreness in the upper abdomen/intestines In the past she took food and took Ibuprofen after meals to help with abdominal pain and had stopped taking it. She would like to resume - since she does not want to take narcotics. Has a BM 2-3 times a day with marble like stools - plans to start taking colace. Denies recent black stools or rectal bleeding. Has developed hemorrhoids after having diarrhea recently (denies bleeding) Muscles in the back are always hurting and its painful to get up She was taking Ibuprofen 200 mg (two tab at bedtime) for the past several years. Stopped Ibuprofen since her hospitalization and she would like to resume - prescribed Celecoxib (pt is allergic to Diclofenac) Patient has MVP (valve is calcified now) and asthma and denies loud snoring or sleep apnea Denies being on chronic anticoagulation. Patient denies known family history of colon polyps, colon cancer or other GI malignancies [facility] Medical History Hypertension Mitral valve prolapse Lupus GERD (gastroesophageal reflux disease) COVID-19 long hauler Hypoglycemia Asthma Hyperlipidemia Fibromyalgia Surgical History History of esophagogastroduodenoscopy (EGD) Hx of colonoscopy H/O dilation and curettage History of breast surgery Leg fracture, right Family History Paternal Aunt Breast CA Paternal Aunt Breast CA Social History Household Members: Spouse Household Members Other:: 2 Housing: House Do you presently have visiting nurse or other home services: No Alcohol intake: never Comment: pt. refusing bed alarm . Patient Tobacco Use Status: Never used Tobacco e-Cigarette/Vaping Use: Never Used Second Hand Smoke Exposure: No Advance Directives Date on File: 10/01/24 service: No Gender identity: Female Female Reproductive History Menstrual Age of Menarche: 12 Review of Systems Const All systems reviewed & are unremarkable except as noted in HPI and below Physical Exam Vital Signs: Last Vital Signs Pulse 80 02/09/25 11:29 BP 150/80 H 02/09/25 11:29 Pulse Ox 100 02/09/25 11:29 Oxygen Delivery Method Room Air 02/09/25 11:29 BMI result Body Mass Index 18.3 Const General: no acute distress Nutritional Appearance: underweight Orientation/consciousness: patient oriented x3 HEENT Head: Yes normal to inspection Ears: hearing grossly normal bilaterally Eyes Sclerae: sclerae normal Pupils: Equal, round and reactive pupils present Neck Neck: Yes normal visual inspection Chest Chest palpation & inspection: normal inspection of the chest Resp Effort & Inspection: normal respiratory effort Auscultation: clear to auscultation bilaterally Cardio Palpation: normal PMI Rate: regular rate Rhythm: regular rhythm Heart sounds: S1 normal heart sound present, S2 normal heart sound present and no murmurs GI Palpation (GI): Soft to palpation, nontender and No hepatosplenomegaly present Auscultation: normal bowel sounds Rectal Exam - Female: deferred Skin General skin exam: no rashes or lesions noted Neuro General: patient oriented x3, gait normal and moves all extremities Cranial nerves: Yes Equal, round and reactive pupils present Psych Appearance: grossly normal Mental Status: mental status grossly normal Assessment & Plan Assessment & Plan (1) Elevated LFTs: Code(s): R79.89 - Other specified abnormal findings of blood chemistry Category: Medical (2) Abdominal pain: Code(s): R10.9 - Unspecified abdominal pain Category: Medical (3) Crohn's disease: Code(s): K50.90 - Crohn's disease, unspecified, without complications Category: Medical Plan 74 YF with lupus, HTN, HLD, fibromyalgia, asthma, GERD, and migraines [place] [facility] and 05/21 to 05/24/24 with?nausea, diarrhea, and abdominal x 5-6 days. Pt was admitted with intractable nausea, non-bloody diarrhea, and abdominal pain and altered taste 1-2 days after she started taking doxycycline. Stool studies were positive for entero-pathogenic E coli infection. Diarrhea resolved and pt complained of constipation x 3 weeks Appetite is very good always hungry and taking small meals. Appetite and taste is coming back In the past she took food and took Ibuprofen after meals to help with abdominal pain and had stopped taking it. She would like to resume - since she does not want to take narcotics. Stopped Ibuprofen since her hospitalization and she would like to resume - prescribed Celecoxib (pt is allergic to Diclofenac) Patient has MVP (valve is calcified now) and asthma and denies loud snoring or sleep apnea Pt had an EGD and colon and findings as noted above Pt was advised labs and to stop Ibuprofen and use celecoxib 100 mg PO BID instead 08/11/24 Had a relapse on 08/08 with projectile vomiting and diarrhea x hours Had 6-7 BMs and had 1 BM yesterday Gradually improved over the next few days Eating small meals - everything hurts - burning in her intestines IBD serologies were positive for Crohn's disease. Pt advised further evaluation with CT enterography, T spot To start Humira for Crohn's disease - she will come to the clinic for initial injection after approval is obtained from her insurance Pt was [place] [facility] with failure to thrive: Hospital course: Patient was admitted with failure to thrive and moderate protein calorie malnutrition in the setting of Crohn's disease. She was treated with Bentyl, Imodium as needed, antiemetics, analgesics, Humira, methotrexate, budesonide. She was seen by nutrition felt caloric intake was insufficient and patient was put on peripheral parenteral nutrition. Though diet improving and diarrhea better controlled, it was felt that patient would still benefit from continuing TPN while caloric intake and weight increases as outpatient and was discharged on home TPN. For mild intermittent asthma she remained stable. For anxiety was continued on propranolol. For GERD continued on PPI. 11/17/24 pt was hospitalized at [facility] from 11/10/24 to 11/14/24 with RUE DVT related to PICC line and treated with Heparin followed by Apixiban. Advised to have PICC line removed after 14 days of anticoagulation and continue oral anticoagulation x 3 months PICC line was removed by IR Seen by Nicky and advised 1 chocolate milk shake daily Feels bloated if she eats too much. BMs are regular - notes some abdominal pain after a BM which resolves spontaneously Referred to endocrinology for management of osteoporosis. Referred to Hematology Oncology for management of DVT of right upper extremity. Scheduled for a GI FU in [place] on March 09. Also has an appt to check for PCN allergy at the Allergy clinic. PT was hospitalized at [facility] from 11/10/24 to 11/14/24 with RUE DVT related to PICC line and treated with Heparin followed by Apixiban. Advised to have PICC line removed after 14 days of anticoagulation and continue oral anticoagulation x 3 months PICC line was removed by IR 12/22/24 Having a normal BM 1-2 times a day. Also notes dizziness and vertigo (stopped dicyclomine 2 weeks ago). Has been having shooting pains in the ribs and back Notes pains in the ribs radiating to the back. 02/09/25 Notes nausea in the am - able to eat Had apple juice in the am Feels constipated - no BM in 48 hrs Scheduled for a GI FU in [place] on March 09. Also has an appt to check for PCN allergy at the Allergy clinic. Pt advised to schedule EGD and colonoscopy. Both procedures and potential complications were reviewed with the patient and her daughter. FU in 6 weeks Medications: New cholecalciferol (vitamin D3) (Vitamin D3) 50 mcg orally, daily 90 caps 3RF Coding Level of Care Code Est Pt Level 4 (29947) Diagnoses Elevated LFTs R79.89 Abdominal pain R10.9 Crohn's disease K50.90 Time Spent (min) 25
[2025-02-09 11:29] VITALS: BP 150/80; PULSE 80; O2SAT 100; BMI 18.3
== END 2025-02-09 12:58 | disposition home or self-care (01) ==
LOC: HO.HGI 10:44
PROVIDERS: PCP Family Medicine; Visit Provider Internal Medicine Gastroenterology
DX: R79.89 Other specified abnormal findings of blood chemistry (principal); R10.9 Unspecified abdominal pain; K50.90 Crohn's disease, unspecified, without complications
CPT/HCPCS: 99499

== ENCOUNTER → 2025-02-09 10:44 | Outpatient (BNVA) | payer OTHER, SELFPAY | PROVIDERS: PCP Family Medicine; Visit Provider Internal Medicine Gastroenterology ==

== ENCOUNTER 2025-02-15 11:11 | Outpatient (REF) | payer OTHER, SELFPAY ==
--- NOTE | ~2025-02-15 | US_ITS ---
CLINICAL HISTORY: I10 - Essential (primary) hypertension US Renal with Doppler Comparison: None Findings: Right kidney normal size and echotexture, 9.5 cm length. No hydronephrosis. Normal color Doppler. Resistive index 0.7. Left kidney normal size and echotexture, 9.7 cm length. No hydronephrosis. Normal color Doppler. Resistive index 0.7. Urinary bladder is not evaluated on the current study IMPRESSION: 1. Normal kidneys This document has been electronically signed by: Shane Rosales MD on 02/16/2025 18:24:28
== END 2025-02-15 11:12 | disposition home or self-care (01) ==
LOC: HO.US 11:11
PROVIDERS: PCP Family Medicine; Visit Provider Internal Medicine Cardiovascular Disease
DX: I10 Essential (primary) hypertension (principal)
CPT/HCPCS: 76775; 93975

== ENCOUNTER → 2025-02-15 11:12 | Outpatient (BNV) | payer OTHER, SELFPAY | PROVIDERS: PCP Family Medicine; Visit Provider Specialist | DX: I10 Essential (primary) hypertension (principal) | CPT/HCPCS: 76775; 93975 ==

== ENCOUNTER 2025-03-05 08:00 | Outpatient (REF) | payer OTHER, SELFPAY ==
[2025-03-07 06:51] LABS: Creatinine, 24Hr Urine 0.1 G/Day (1.0-2.0); Total Volume 24 Hour Urine 225 mL
[2025-03-08 19:13] LABS: Calcium, 24 Hr Urine 13 mg/24 h; Calcium/Creatinine Ratio 84 mg/g creat (30-275); Creatinine 24Hr Urine 0.15 g/24 h (0.50-2.15)
== END 2025-03-05 08:01 | disposition home or self-care (01) ==
LOC: HO.LNP 08:00
PROVIDERS: Visit Provider Internal Medicine Endocrinology, Diabetes & Metabolism
DX: M81.0 Age-related osteoporosis without current pathological fracture (principal)
CPT/HCPCS: 82340; 82570

== ENCOUNTER 2025-03-14 14:30 | Outpatient (AMB) | payer OTHER, SELFPAY ==
[2025-03-14 14:44] VITALS: BP 150/70; PULSE 73; O2SAT 97; BMI 19.2
--- NOTE | 2025-03-14 14:44 | A.OFFVIS_ITS ---
Vital Signs 03/14/25 14:44 Height 5 ft 1.34 in Weight 102 lb 11.767 oz BMI 19.2 BP 150/70 H Blood Pressure Location Lt brachial Position Sitting Pulse 73 Pulse Source Pulse Oximeter Pulse Oximetry (%) 97 Oxygen Delivery Method Room Air Intake Visit Reasons: Osteoporosis f/u Intake Note: Patient present today for Osteoporosis follow up. Carton Liner Required: No Accompanied by: Daughter Allergies levofloxacin [From LEVAQUIN] Allergy (Severe, Verified 03/14/25 14:45) Severe itching acetaminophen [From TYLENOL] Allergy (Intermediate, Verified 03/14/25 14:45) Itching epinephrine [EPINEPHRINE] Allergy (Intermediate, Verified 03/14/25 14:45) Tachycardia Penicillins [PENICILLINS] Allergy (Intermediate, Verified 03/14/25 14:45) Itching and hives diclofenac [DICLOFENAC] Allergy (Unknown, Verified 03/14/25 14:45) Hives meperidine [Demerol] Allergy (Unknown, Verified 03/14/25 14:45) Rash penicillin V Allergy (Unknown, Verified 03/14/25 14:45) Rash procaine [From NOVOCAIN] Allergy (Unknown, Verified 03/14/25 14:45) Unknown feathers Allergy (Verified 03/14/25 14:45) Itching wool Allergy (Verified 03/14/25 14:45) Itching Sulfa (Sulfonamide Antibiotics) [SULFA (SULFONAMIDE ANTIBIOTICS)] Adverse Reaction (Intermediate, Verified 03/14/25 14:45) Nausea doxycycline Adverse Reaction (Verified 03/14/25 14:45) Stomach Upset Medication List - Last Reconciled 03/14/25 by Peewee Brower MD adalimumab-adaz 40 mg (0.4 mL) subcut Q2W 4 weeks albuterol sulfate 90 mcg/actuation 2 puffs inhalation Q6H PRN apixaban (Eliquis) 5 mg PO BID budesonide DR-ER 12 mg (4 x 3 mg) PO DAILY 90 days carisoprodol 350 mg PO BID cholecalciferol (vitamin D3) (Vitamin D3) 50 mcg orally, daily ezetimibe (Zetia) 10 mg PO DAILY folic acid 1 mg PO DAILY 90 days insulin syringe-needle U-100 ([facility]ringes) As directed [loperamide PO Q4-6H PRN] magnesium oxide 800 mg (2 x 400 mg (241.3 mg magnesium)) PO DAILY melatonin 10 mg PO BEDTIME methotrexate sodium (PF) 12.5 mg (0.5 mL) IM QWEEK 30 days montelukast 10 mg PO BEDTIME olmesartan mg PO potassium chloride ER 20 mEq PO DAILY promethazine 25 mg PO Q8H PRN 30 days propranolol 10 mg PO TID PRN sodium bicarbonate 1,300 mg (2 x 650 mg) PO BID 30 days thiamine HCl (vitamin B1) 100 mg PO DAILY HPI Comments Details: 74 YO Female with PMHx Crohn's Dx and chronic diarrhea is seen in consultation at the request of PCP for Osteoporosis. First diagnosed in recently . Not Received treatment in the past History of pathologic fracture fell backwards fracturing R ankle and tibia or ONJ. Has several servings of dietary calcium per day in the form of cheese, cereal , ice cream . Not Takes Calcium supplement mg daily in divided doses. Takes ? IU of Vitamin D daily. Takes PPI, +anticoagulant Eliquis , -antiepileptic + glucocorticoid medication. 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 UTD on dental cleanings and sees dentist every 6 months. No planned upcoming dental work or extractions. No tabacco or heavy ETOH use DXA dated 11/02/24 :FINDINGS: The bone mineral density of the lumbar spine is 0.781 with a T-score of -3.3, and a Z-score of -0.9. This represents a BMD change of -21.7% compared to the prior exam. This is statistically significant. The bone mineral density of the left total hip is 0.681 with a T-score of -2.6, and a Z-score of -0.4. This represents BMD change of -18.9% compared to the prior exam. This is statistically significant. The bone mineral density of the left femoral neck is 0.644 with a T-score of -2.8, and a Z-score of -0.5. This represents BMD change of -13.3% compared to the prior exam. MM/XR DEXA axial skeleton IMPRESSION: Based on bone mineral density, and according to World Health Organization (WHO) criteria, the diagnosis is consistent with osteoporosis. Labs: Secondary workup negative except for low 24 hour urinary calcium suggesting poor calcium intake The patient is a 74-year-old female presenting with hypocalcemia due to calcium supplementation non-compliance. She has been advised to consume 1200 mg of calcium daily, combining dietary sources and supplements, but has failed to consistently adhere to her regimen. Concerns about calcium absorption due to previous calcified valves and chronic malabsorption issues were noted, making management of her calcium intake complex. The patient has a history of significant weight fluctuations influenced by her dietary habits and a lack of appetite. She consumes small, frequent meals but experiences nausea that impacts her eating capacity. Previously encountered issues with her urinary calcium being significantly lower than expected further emphasize the importance of monitoring her intake and absorption. She reported weakness during physical activities but maintains that her energy levels have slightly improved. The patient considers initiating bone-strengthening treatments pending stabilization of calcium levels. Her current treatment re gimen includes methotrexate, which correlates with fatigue after dosing. The patient consumes a diet with a focus on calcium-rich foods such as broccoli, cheese, and ice cream. However, she struggles with maintaining a regular intake due to a poor appetite and nausea. She frequently snacks but her meals, though perceived as substantial, may not always meet nutritional requirements. She aims to track her calcium intake more diligently. [facility] Medical History Hypertension Mitral valve prolapse Lupus GERD (gastroesophageal reflux disease) COVID-19 long hauler Hypoglycemia Asthma Hyperlipidemia Fibromyalgia Surgical History H/O dilation and curettage History of breast surgery Leg fracture, right Family History Paternal Aunt Breast CA Paternal Aunt Breast CA Social History Household Members: Spouse Household Members Other:: 2 Housing: House Do you presently have visiting nurse or other home services: No Alcohol intake: never Comment: pt. refusing bed alarm . Patient Tobacco Use Status: Never used Tobacco e-Cigarette/Vaping Use: Never Used Second Hand Smoke Exposure: No Advance Directives Date on File: 10/01/24 service: No Gender identity: Female Female Reproductive History Menstrual Age of Menarche: 12 Physical Exam Vital Signs: BMI result Body Mass Index 19.2 Assessment & Plan Assessment & Plan (1) Osteoporosis: Code(s): M81.0 - Age-related osteoporosis without current pathological fracture Category: Medical Plan: This is a 74-year-old white female with a history of chronic diarrhea and Crohn's disease recently found to have moderate to severe osteoporosis. Secondary workup was negative except for low 24 hour urinary calcium suggesting poor calcium intake Plan is to replete calcium stores by consistently taking the 1000 mg of calcium citrate supplementation each day . Would recheck 24 hour urinary calcium for creatinine in 2-3 months. Once calcium is replete, we will consider use of anabolic agent initially like Evenity, Tymlos or Forteo considering very low bone density and high risk for fracture 1. Hypocalciuria The patient must increase her calcium intake to 1200 mg daily through diet and consistent supplementation. Follow-up urinary calcium checks will determine effectiveness. 3. Osteoporosis Risk Once adequate calcium levels are achieved, we may introduce bone-building agents to improve bone health and prevent further fractures. I discussed with the patient the importance of adhering to her calcium supplement regimen to manage her hypocalcemia effectively. We detailed the risks associated with low calcium levels and the potential benefits of increasing her intake. The patient was advised to aim for a total daily calcium intake of 1200 mg through diet and supplementation. We discussed re-evaluating her urinary calcium levels in nine weeks. Considering her fractural history and methotrexate use, we will reassess bone-strengthening treatments once calcium levels normalize. The patient understands these recommendations and will return for follow-up as discussed. - Take your calcium supplement consistently each day. - Aim to consume a total of 1200 mg of calcium daily, including both diet and supplements. - Track your food intake in a diary to ensure you're eating enough calcium-rich foods. - Return for a follow-up urinary calcium evaluation in nine weeks. - Report any new symptoms or concerns, especially related to weakness or changes in appetite. - Maintain safety at home to prevent falls, such as keeping stairs well-lit and free of obstacles. The patient had an opportunity to ask questions regarding treatment plan. The patient expressed understanding and agreement with the above treatment plan. Patient was informed and verbally consented to the use of an ambient scribe for clinic note documentation during this visit. Coding Level of Care Code Est Pt Level 3 (98002) Diagnoses Osteoporosis M81.0
== END 2025-03-14 15:12 | disposition home or self-care (01) ==
LOC: HO.ENCR 14:30
PROVIDERS: PCP Family Medicine; Visit Provider Internal Medicine Endocrinology, Diabetes & Metabolism
DX: M81.0 Age-related osteoporosis without current pathological fracture (principal)
CPT/HCPCS: 99213

== ENCOUNTER → 2025-03-14 14:30 | Outpatient (BNVA) | payer OTHER, SELFPAY | PROVIDERS: PCP Family Medicine; Visit Provider Internal Medicine Endocrinology, Diabetes & Metabolism ==

== ENCOUNTER 2025-03-17 10:58 | Day surgery (SDC) | payer OTHER, SELFPAY ==
--- NOTE | 2025-03-16 12:30 | P.CONAN_ITS ---
Documented by User: Brenna Leung NP 03/16/25 12:30 HPI - Anesthesia Eval Consult details Narrative: 74yo F for Upper Endoscopy and Colonoscopy, 03/17/25 Eliquis for hx PICC line associated UE DVT [facility] [place] 01/2025: hospital course: Patient was admitted for acute kidney injury complicated by severe acute metabolic acidosis due to Crohn's with diarrhea. Was given IV hydration with bicarbonate, NSAIDs PPI and ARB were held. Creatinine returned to normal and acidosis resolved. Diarrhea slowed down. For acute hypernatremia resolved with hypotonic fluids. Acute recurrent hypokalemia and hypomagnesemia were replaced and patient will continue supplement on discharge. For moderate protein calorie malnutrition p.o. intake is encouraged. For history of DVT related to PICC line patient will continue apixaban for 1 more month. Patient is feeling better and will be discharged home. PMFSH Active Problems Active Problems: All Active Problems Uncontrolled hypertension (Acute) Chest pain (Acute) Abnormal mammogram of right breast (Acute) RUQ abdominal pain (Acute) Rib pain (Acute) Osteoporosis (Acute) Deep vein thrombosis (DVT) of right upper extremity (Acute) PICC (peripherally inserted central catheter) removal (Acute) Protein calorie malnutrition (Acute) Adult failure to thrive (Acute) Crohn's disease (Acute) Chronic diarrhea (Acute) Abdominal pain (Acute) Fibromyalgia (Acute) Elevated LFTs (Acute) Dilated cbd, acquired (Acute) Weight loss (Acute) Colon cancer screening (Acute) Past Medical History Medical History Hypertension Mitral valve prolapse Lupus GERD (gastroesophageal reflux disease) COVID-19 long hauler Hypoglycemia Asthma Hyperlipidemia Fibromyalgia Family History Family History Paternal Aunt Breast CA Paternal Aunt Breast CA Family history of problems with anesthesia: No Surgical History Surgical History H/O dilation and curettage History of breast surgery Leg fracture, right History of Problems with Anesthesia: No Social History Social History Household Members: Spouse Household Members Other:: 2 Housing: House Do you presently have visiting nurse or other home services: No Alcohol intake: never Comment: pt. refusing bed alarm . Patient Tobacco Use Status: Never used Tobacco e-Cigarette/Vaping Use: Never Used Second Hand Smoke Exposure: No Advance Directives: No Advance Directives Information Provided: Yes Advance Directives Date on File: 10/01/24 service: No Gender identity: Female Meds Allergies Allergy/AdvReac Type Severity Reaction Status Date / Time levofloxacin [From LEVAQUIN] Allergy Severe Severe Verified 03/14/25 14:45 itching acetaminophen [From TYLENOL] Allergy Intermediate Itching Verified 03/14/25 14:45 epinephrine [EPINEPHRINE] Allergy Intermediate Tachycardia Verified 03/14/25 14:45 Penicillins [PENICILLINS] Allergy Intermediate Itching Verified 03/14/25 14:45 and hives diclofenac [DICLOFENAC] Allergy Unknown Hives Verified 03/14/25 14:45 meperidine [Demerol] Allergy Unknown Rash Verified 03/14/25 14:45 penicillin V Allergy Unknown Rash Verified 03/14/25 14:45 procaine [From NOVOCAIN] Allergy Unknown Unknown Verified 03/14/25 14:45 feathers Allergy Itching Verified 03/14/25 14:45 wool Allergy Itching Verified 03/14/25 14:45 Sulfa (Sulfonamide AdvReac Intermediate Nausea Verified 03/14/25 14:45 Antibiotics) [SULFA (SULFONAMIDE ANTIBIOTICS)] doxycycline AdvReac Stomach Verified 03/14/25 14:45 Upset Home Medications ?Medication ?Instructions ?Recorded ?Confirmed ?Last Taken ?Type albuterol sulfate 90 mcg/actuation 2 puff inhalation Q6H PRN 06/07/23 03/14/25 09/29/24 History aerosol inhaler Shortness Of Breath montelukast 10 mg tablet 10 mg PO BEDTIME 06/07/23 03/14/25 01/25/25 History propranolol 10 mg tablet 10 mg PO TID PRN anxiety 05/13/24 03/14/25 09/29/24 History melatonin 10 mg tablet 10 mg PO BEDTIME 05/21/24 03/14/25 01/25/25 History apixaban 5 mg tablet (Eliquis) 5 mg PO BID 11/17/24 03/14/25 01/25/25 History thiamine HCl (vitamin B1) 100 mg 100 mg PO DAILY 11/17/24 03/14/25 01/25/25 History tablet carisoprodol 350 mg tablet 350 mg PO BID 01/26/25 03/14/25 01/25/25 History loperamide PO Q4-6H PRN Diarrhea 01/26/25 03/14/25 Unknown History olmesartan 20 mg tablet mg PO 03/14/25 03/14/25 Unknown History Exam Pertinent Lab Results Pertinent Lab Results: Laboratory Tests 01/30/25 02/01/25 08:13 13:01 WBC 7.2 Hgb 12.7 Hct 39.4 Plt Count 178 Sodium 143 Potassium 3.5 Chloride 116 H Carbon Dioxide 18 L BUN 7 L Creatinine 0.66 Laboratory Tests 01/30/25 08:29 Magnesium 1.6 Narrative Narrative: EKG 01/2025 Vent. Rate : 96 BPM Atrial Rate : 96 BPM P-R Int : 134 ms QRS Dur : 80 ms QT Int : 386 ms P-R-T Axes : 49 28 26 degrees QTcB Int : 487 ms Normal sinus rhythm Possible Left atrial enlargement Nonspecific ST and T wave abnormality Prolonged QT Abnormal ECG When compared with ECG of 25-Jan-2025 15:10, No significant change was found ECHO 2022 Conclusions: - The left ventricular systolic function is normal. The calculated ejection fraction is 66% by biplane method. - No obvious valvular pathology seen on this study. Assessment and Plan Assessment Anesthesia Assessment: Chart Reviewed Final Anesthetic Review Family History of Problems with Anesthesia: No History of Problems with Anesthesia: No Documented by User: Yasmin Brewer MD 03/17/25 11:30 PMF Past Medical History Medical History Hypertension Mitral valve prolapse Lupus GERD (gastroesophageal reflux disease) COVID-19 long hauler Hypoglycemia Asthma Hyperlipidemia Fibromyalgia Family History Family History Paternal Aunt Breast CA Paternal Aunt Breast CA Surgical History Surgical History H/O dilation and curettage History of breast surgery Leg fracture, right Social History Social History Household Members: Spouse Household Members Other:: 2 Housing: House Do you presently have visiting nurse or other home services: No Alcohol intake: never Comment: pt. refusing bed alarm . Patient Tobacco Use Status: Never used Tobacco e-Cigarette/Vaping Use: Never Used Second Hand Smoke Exposure: No Advance Directives: No Advance Directives Information Provided: Yes Advance Directives Date on File: 10/01/24 service: No Gender identity: Female Meds Allergies Allergy/AdvReac Type Severity Reaction Status Date / Time levofloxacin [From LEVAQUIN] Allergy Severe Severe Verified 03/14/25 14:45 itching acetaminophen [From TYLENOL] Allergy Intermediate Itching Verified 03/14/25 14:45 epinephrine [EPINEPHRINE] Allergy Intermediate Tachycardia Verified 03/14/25 14:45 Penicillins [PENICILLINS] Allergy Intermediate Itching Verified 03/14/25 14:45 and hives diclofenac [DICLOFENAC] Allergy Unknown Hives Verified 03/14/25 14:45 meperidine [Demerol] Allergy Unknown Rash Verified 03/14/25 14:45 penicillin V Allergy Unknown Rash Verified 03/14/25 14:45 procaine [From NOVOCAIN] Allergy Unknown Unknown Verified 03/14/25 14:45 feathers Allergy Itching Verified 03/14/25 14:45 wool Allergy Itching Verified 03/14/25 14:45 Sulfa (Sulfonamide AdvReac Intermediate Nausea Verified 03/14/25 14:45 Antibiotics) [SULFA (SULFONAMIDE ANTIBIOTICS)] doxycycline AdvReac Stomach Verified 03/14/25 14:45 Upset Home Medications ?Medication ?Instructions ?Recorded ?Confirmed ?Last Taken ?Type albuterol sulfate 90 mcg/actuation 2 puff inhalation Q6H PRN 06/07/23 03/14/25 09/29/24 History aerosol inhaler Shortness Of Breath montelukast 10 mg tablet 10 mg PO BEDTIME 06/07/23 03/14/25 01/25/25 History propranolol 10 mg tablet 10 mg PO TID PRN anxiety 05/13/24 03/14/25 09/29/24 History melatonin 10 mg tablet 10 mg PO BEDTIME 05/21/24 03/14/25 01/25/25 History apixaban 5 mg tablet (Eliquis) 5 mg PO BID 11/17/24 03/14/25 01/25/25 History thiamine HCl (vitamin B1) 100 mg 100 mg PO DAILY 11/17/24 03/14/25 01/25/25 History tablet carisoprodol 350 mg tablet 350 mg PO BID 01/26/25 03/14/25 01/25/25 History loperamide PO Q4-6H PRN Diarrhea 01/26/25 03/14/25 Unknown History olmesartan 20 mg tablet mg PO 03/14/25 03/14/25 Unknown History Exam Airway Mallampati Class: II (poor dentition, missing multiple teeth) TM Dist: >3cm Neck ROM: Full Heart: rrr Lungs: cta Assessment and Plan Assessment Anesthesia Assessment: Anesthesia Plan Discussed Final Anesthetic Review NPO: Yes ASA Class: III Final Preanesthetic Review: No Changes in Pt Med Stat, Meds/Allgs Chart Reviewed and Consent Obtained/Reviewed Patient Risk: Intermediate Procedure Risk: Intermediate Anesthetic Plan Anesthetic Plan: MAC: Disposition: Standard PACU
[2025-03-17 11:29] VITALS: BMI 18.7
[2025-03-17] MEDS: Sodium Phosphate,Mono-Dibasic 133 ML ENEMA PR (11:45)
[2025-03-17 12:01] LABS: Glucose, Whole Blood 78 mg/dL (60-115)
[2025-03-17] MEDS: Lactated Ringers 1,000 ML 100 ML IVCONT (12:12)
[2025-03-17 12:21] LABS: Alanine Aminotransferase 135 U/L (0-31); Albumin Level 4.3 g/dL (3.5-5.0); Alkaline Phosphatase 123 U/L (39-117); Anion Gap 13 (12-20); Aspartate Amino Transferase 127 U/L (5-31); Bilirubin Total 0.8 mg/dL (0.0-1.0); Blood Urea Nitrogen 10 mg/dL (9-16); Calcium 9.8 mg/dL (8.4-10.2); Carbon Dioxide 29 mmol/L (22-29); Chloride 104 mmol/L (96-108); Creatinine Clr Calc Pharmacy 50.7; Estimated Glomerular Filt Rate > 60; Glucose Random 88 mg/dL (60-115); Magnesium 2.2 mg/dL (1.6-2.6); Potassium 4.6 mmol/L (3.3-5.1); Sodium 141 mmol/L (135-145); Total Protein 8.3 g/dL (6.5-8.0)
--- NOTE | 2025-03-17 12:47 | MHC.SHP ---
Pre-Procedural Eval Section A - 24 Hr Update-Section A only Date of Service: 03/17/25 The patient is an INPATIENT: No The patient has been examined within 24 hours of the surgical procedure. The History & Physical has been completed within 30 days and I have reviewed it.: No Section B - Complete if H&P > 30 days Chief Complaint: Crohn's disease, chronic diarrhea Relevant Family History (Specify if Yes): No Relevant Social History: None Present Medications: see Short Stay Collaborative assessment Medical History: Significant History (Hypertension Mitral valve prolapse Lupus GERD (gastroesophageal reflux disease) COVID-19 long hauler Hypoglycemia Asthma Hyperlipidemia Fibromyalgia) History of Previous Operations: Relevant previous surgery/procedure and date(s) (H/O dilation and curettage History of breast surgery Leg fracture, right) Allergies: Allergies Allergy/AdvReac Type Severity Reaction Status Date / Time levofloxacin [From LEVAQUIN] Allergy Severe Severe Verified 03/14/25 14:45 itching acetaminophen [From TYLENOL] Allergy Intermediate Itching Verified 03/14/25 14:45 epinephrine [EPINEPHRINE] Allergy Intermediate Tachycardia Verified 03/14/25 14:45 Penicillins [PENICILLINS] Allergy Intermediate Itching Verified 03/14/25 14:45 and hives diclofenac [DICLOFENAC] Allergy Unknown Hives Verified 03/14/25 14:45 meperidine [Demerol] Allergy Unknown Rash Verified 03/14/25 14:45 penicillin V Allergy Unknown Rash Verified 03/14/25 14:45 procaine [From NOVOCAIN] Allergy Unknown Unknown Verified 03/14/25 14:45 feathers Allergy Itching Verified 03/14/25 14:45 wool Allergy Itching Verified 03/14/25 14:45 Sulfa (Sulfonamide AdvReac Intermediate Nausea Verified 03/14/25 14:45 Antibiotics) [SULFA (SULFONAMIDE ANTIBIOTICS)] doxycycline AdvReac Stomach Verified 03/14/25 14:45 Upset Review of Systems Sugical H&P ROS: Negative: Constitution, Cardiovascular, Respiratory and Gastrointestinal Exam Surgical H&P Exam: Normal: Heart, Normal: Lungs, Normal: Extremities and Normal: Abdomen Plan Diagnosis/Plan: Unchanged I have reviewed the history and physical and performed a pertinent physical examination on my patient. No changes have occurred unless specified. Time Spent With Patient Time: Total time managing care of this patient today ____ minutes.
--- NOTE | 2025-03-17 13:28 | HO.OPN-COLON ---
Colonoscopy Operative Note Operative Note Date of Service: 03/17/25 Narrative: FLEXIBLE TRANSORAL UPPER GASTROINTESTINAL ENDOSCOPY WITH BIOPSIES AND COLONOSCOPY TILL SPLENIC FLEXURE WITH BIOPSIES Pre-op diagnosis: chronic diarrhea, follow-up of Crohn's disease/? celiac sprue Post-op diagnosis: Gastritis, Diverticulosis Specimens and Sources: : B- SMALL BOWEL BXS # 1 ?C- SMALL BOWEL BXS R/O AUTOIMMUNE ENTEROPATHY # 2 ?D- GASTRIC ANTRUM BXS ?E- GASTRIC BODY BXS ?F- EG JUNCTION NODULE BXS ?G- LEFT SIDE COLON BXS # 1 ?H-LEFT SIDE COLON BXS # 2 Pre-operative diagnosis: : CHRON'S DISEASE Post-operative Diagnosis: : GASTRITIS, F/U CHRON'S DISEASE Clinical History and Findings: : JAR B- AMYLOIDS, IGG4 STAINING AND MAST CELLS ?JAR G- AMYLOIDS, IGG4 STAINING AND MAST CELLS Endoscopist:? Fern Blackburn MD Anesthesia:?MAC UPPER ENDOSCOPY Consent: Indications for the procedure and potential complications of bleeding, perforation, reaction to medications and missed diagnosis were discussed with the patient and informed consent was obtained. Instrument: Olympus GIF H 190 mid size upper endoscope Monitoring: Vital signs and clinical assessment, continuous EKG monitoring, Pulse oximetry, Carbon Dioxide monitoring and blood pressure monitoring were done throughout the procedure. Procedure: The patient was placed in the left lateral decubitis position and pre-procedure medications were administered and a bite block was placed. The endoscope was inserted into the mouth and advanced under direct vision to the third part of duodenum. A careful inspection was made as the upper endoscope was withdrawn including a retroflexed examination of the proximal stomach; Findings and interventions are described below. Findings: Larynx: Normal Esophagus: Mildly tortuous esophagus without stricture or ring. GE junction at 34 cms, small hiatal hernia 34 to 35 cms. No esophagitis or Boateng's. A few 2-3 mm whittish nodules/exudate at GE junction - biopsied. Stomach: Moderate diffuse gastric erythema - biopsies were obtained from the antrum. Grade 2 flap valve on retroflexed examination of the cardia. Duodenum: Normal bulb and descending duodenum Biopsies were obtained from descending duodenum to check for celiac sprue, amyloidosis, autoimmune enteropathy and Whipple's disease Intervention: Biopsies as noted above COLONOSCOPY PROCEDURE NOTE Instrument: Olympus PCF H 190 L variable stiffness pediatric colonoscope Monitoring: Vital signs and clinical assessment, intermittent blood pressure monitoring, continuous EKG monitoring, Pulse oximetry and Carbon Dioxide monitoring were done throughout the procedure. Please see anesthesia flowsheet. Procedure: The patient was placed in the left lateral decubitis position and pre-procedure medications were administered. After a digital rectal examination of the ano-rectum, the video colonoscope was inserted into the rectum and advanced through the colon to the . The splenic flexure at 60 cm. It was not possible to advanced further due to semisolid stools blocking the lumen. colonoscope was slowly withdrawn in a retrograde panoramic fashion and the colon mucosa was carefully examined including a retroflexed view of the rectum. Findings and interventions are described below. Procedure Difficulty: without difficulty Findings: Terminal Ileum: Not evaluated Cecum: Not examined Ascending Colon: Not examined Transverse Colon: Not examined Descending Colon: Normal mucosa, moderate diverticulosis Sigmoid Colon: Normal colon mucosa. Moderate diverticulosis Rectum: Normal Ano-rectum: Normal Colon preparation: Good to fair in the left colon and Poor in the transverse colon despite copious [place] Bowel Preparation Scale Right colon; Not examined Transverse colon: 1 Left colon; 2 (0 = Unprepared colon segment with mucosa not seen due to solid stool that cannot be cleared. 1 = Portion of mucosa of the colon segment seen, but other areas of the colon segment not well seen due to staining, residual stool and/or opaque liquid. 2 = Minor amount of residual staining, small fragments of stool and/or opaque liquid, but mucosa of colon segment seen well. 3 = Entire mucosa of colon segment seen well with no residual staining, small fragments of stool or opaque liquid) Impression and Post Procedure Diagnosis: Endoscopy Findings: ESOPHAGUS: [] STOMACH: [] DUODENUM: [] Colonoscopy Findings: No polyps were detected Moderate diverticulosis seen in the left colon Normal mucosa in the left colon - random biopsies were obtained for histology and to check for amyloidosis/ Plan: Pt has a FU appointment on 03/28/[address] Blackburn Repeat Colonoscopy in 1 year if biopsies are normal. A summary of above findings and relevant handouts were given to the patient.
[2025-03-17 13:55] VITALS: BP 100/57; PULSE 80; RESP 12; TEMP 36.1; O2SAT 97
[2025-03-17 14:11] VITALS: BP 109/73; PULSE 78; RESP 12; O2SAT 99
[2025-03-17 14:25] VITALS: BP 117/78; PULSE 72; RESP 12; O2SAT 99
[2025-03-17 14:33] VITALS: BP 124/82; PULSE 71; RESP 16; TEMP 36.1; O2SAT 99
== END 2025-03-17 15:03 | disposition home or self-care (01) ==
PROVIDERS: PCP Family Medicine; Visit Provider Internal Medicine Gastroenterology
PROC: (CPT 45380; principal; 2025-03-17 12:50)
DX: K29.60 Other gastritis without bleeding (principal); K50.90 Crohn's disease, unspecified, without complications; K21.9 Gastro-esophageal reflux disease without esophagitis; K52.9 Noninfective gastroenteritis and colitis, unspecified; K57.30 Diverticulosis of large intestine without perforation or abscess without bleeding; I10 Essential (primary) hypertension; E78.5 Hyperlipidemia, unspecified; J45.909 Unspecified asthma, uncomplicated; I34.1 Nonrheumatic mitral (valve) prolapse; Z79.01 Long term (current) use of anticoagulants; Z79.4 Long term (current) use of insulin; Z79.899 Other long term (current) drug therapy
CPT/HCPCS: 45380; 43239; 36415; 80053; 82947; 83735; 87798; 88305; 88313; 88341; 88342; J2704

== ENCOUNTER 2025-04-11 10:42 | Outpatient (REF) | payer OTHER, SELFPAY ==
--- NOTE | ~2025-04-11 | US_ITS ---
EXAMINATION: US TRIPLEX UPPER EXTREMITY, RIGHT CLINICAL INFORMATION: Edema and swelling, right upper extremity. COMPARISON: None available. TECHNIQUE: Color-flow triplex imaging with spectral analysis and compression Doppler was performed on the right upper extremity. FINDINGS: The right internal jugular, subclavian, and axillary veins are patent demonstrated normal phasic flow and compressibility. The imaged segment of the right brachiocephalic vein is patent. Spectral doppler waveforms are normal. The brachial, basilic, cephalic, radial, and ulnar veins are patent and compressible. US/US venous duplex UE RT IMPRESSION: No acute deep venous thrombosis interrogated veins, right upper extremity. Negative for DVT. Electronically signed by: Robb Johnson MD 04/11/2025 11:06 AM EDT
== END 2025-04-11 10:43 | disposition home or self-care (01) ==
LOC: HO.US 10:42
PROVIDERS: PCP Family Medicine; Visit Provider Internal Medicine Medical Oncology
DX: I82.621 Acute embolism and thrombosis of deep veins of right upper extremity (principal)
CPT/HCPCS: 93971

== ENCOUNTER → 2025-04-11 10:47 | Outpatient (BNV) | payer OTHER, SELFPAY | PROVIDERS: PCP Family Medicine; Visit Provider Radiology Diagnostic Radiology | DX: R22.31 Localized swelling, mass and lump, right upper limb (principal) | CPT/HCPCS: 93971 ==

== ENCOUNTER 2025-07-06 12:20 | Outpatient (AMB) | payer OTHER, SELFPAY ==
--- OUTSIDE RECORDS SUMMARY | 2012-08-24 01:00 | XMS_ITS | Encounter Summary ---
Author Organization [facility] Address [address] [place] [address] Phone Care Team Providers Care Continuous Miner Operator Name Role Phone Unavailable Primary Care Provider Unavailabl e Encounter Details Date Type Department Care Team (Late st Contact Info) Description 08/24/2012 Hospital Encounter [facility],Outside Imaging 30 [place] [address] System, Provider Not In, PhD [address] [address] Social History Tobacco Use Types Packs/Day Years [...] 11/11/2024 9:38 PM Sylvia Galan RN * [place] Suicide Severity Rating Scale (Screener/Recent Self-Report) Question [...] Care Team (Late st Contact Info) Description 07/17/2025 2:00 PM EDT Telemedicine [facility] [place] [facility] 165 [facility] 9th [place] [address] Gabriela Franco PA-C 165 [facility] [address] [place] [phone] [email or web address] documented as of this encounter Procedures Procedure [...] It is not the complete legal health record.[facility]
--- OUTSIDE RECORDS SUMMARY | 2013-10-13 01:00 | XMS_ITS | Encounter Summary ---
Author Organization [facility] Address [address] [place] [address] Phone Care Team Providers Care Digital Content Manager Name Role Phone Unavailable Primary Care Provider Unavailabl e Encounter Details Date Type Department Care Team (Late st Contact Info) Description 10/13/2013 Hospital Encounter [facility],Outside Imaging 30 [place] [address] System, Provider Not In, PhD [address] [address] Social History Tobacco Use Types Packs/Day Years [...] 11/11/2024 9:38 PM Sylvia Galan RN * [place] Suicide Severity Rating Scale (Screener/Recent Self-Report) Question [...] Info) Description 07/17/2025 2:00 PM EDT Telemedicine [facility] 165 [facility] 9th [place] [address] Gabriela Franco PA-C 165 [facility] [address] [place] [phone] [email or web address] documented as of this encounter Procedures [...] It is not the complete legal health record.[facility]
--- OUTSIDE RECORDS SUMMARY | 2013-10-13 01:05 | XMS_ITS | Encounter Summary ---
Author Organization [facility] Address [address] [place] [address] Phone Care Team Providers Care Bench Assembler Battery Name Role Phone Unavailable Primary Care Provider Unavailabl e Encounter Details Date Type Department Care Team (Late st Contact Info) Description 10/13/2013 12:05 AM EST Hospital Encounter [facility],Outside Imaging 30 [place] [address] System, Provider Not In, PhD Partners [address] [address] Social History Tobacco Use Types Packs/Day Years [...] 11/11/2024 9:38 PM Sylvia Galan RN * [place] Suicide Severity Rating Scale (Screener/Recent Self-Report) Question [...] Upcoming Encounters Date Type Department Care Team ([facility] st Contact Info) Description 07/17/2025 2:00 PM EDT Telemedicine [facility] [place] 165 [facility] 9th [place] [address] Gabriela Franco PA-C 165 [facility] [phone] [place] [phone] [email or web address] documented as of this encounter Procedures [...] It is not the complete legal health record.[facility]
--- NOTE | 2025-07-06 12:23 | MHC.OFFVIS ---
Vital Signs 07/06/25 12:29 Height 5 ft 2 in Weight 114 lb BMI 20.8 BP 152/76 H Blood Pressure Location Lt brachial Position Sitting Pulse 80 Pulse Oximetry (%) 96 Oxygen Delivery Method Room Air Intake Visit Reasons: 3 mo F/u Crohns Intake Note: Paatient 3 month F/u for Crohns/abdominal pain Ptient cc: body pain, abdominal pain on and off, occasoinal shocking sensation with rice. [employer]ending Assistant Required: No Accompanied by: Family/Other Allergies levofloxacin (From LEVAQUIN) Allergy (Severe, Verified 08/28/25 14:42) Severe itching acetaminophen (From TYLENOL) Allergy (Intermediate, Verified 08/28/25 14:42) Itching epinephrine (EPINEPHRINE) Allergy (Intermediate, Verified 08/28/25 14:42) Tachycardia Penicillins (PENICILLINS) Allergy (Intermediate, Verified 08/28/25 14:42) Itching and hives diclofenac (DICLOFENAC) Allergy (Unknown, Verified 08/28/25 14:42) Hives meperidine (Demerol) Allergy (Unknown, Verified 08/28/25 14:42) Rash penicillin V Allergy (Unknown, Verified 08/28/25 14:42) Rash procaine (From NOVOCAIN) Allergy (Unknown, Verified 08/28/25 14:42) Unknown feathers Allergy (Verified 08/28/25 14:42) Itching wool Allergy (Verified 08/28/25 14:42) Itching Sulfa (Sulfonamide Antibiotics) (SULFA (SULFONAMIDE ANTIBIOTICS)) Adverse Reaction (Intermediate, Verified 08/28/25 14:42) Nausea doxycycline Adverse Reaction (Verified 08/28/25 14:42) Stomach Upset Medication List - Last Reconciled 07/06/25 by Fern Blackburn MD adalimumab-adaz 40 mg (0.4 mL) subcut Q2W 4 weeks albuterol sulfate 90 mcg/actuation 2 puffs inhalation Q6H PRN budesonide DR-ER 12 mg (4 x 3 mg) PO DAILY 90 days carisoprodol 350 mg PO BID cholecalciferol (vitamin D3) (Vitamin D3) 50 mcg orally, daily ezetimibe (Zetia) 10 mg PO DAILY folic acid 1 mg PO DAILY 90 days insulin syringe-needle U-100 ([facility] Syringes) As directed [loperamide PO Q4-6H PRN] magnesium oxide 800 mg (2 x 400 mg (241.3 mg magnesium)) PO DAILY melatonin 10 mg PO BEDTIME methotrexate sodium mg IV methotrexate sodium (PF) 12.5 mg (0.5 mL) IM QWEEK 30 days montelukast 10 mg PO BEDTIME olmesartan mg PO omeprazole 20 mg PO BID potassium chloride ER 20 mEq PO DAILY promethazine 25 mg PO Q8H PRN 30 days propranolol 10 mg PO TID PRN 30 days sodium bicarbonate 1,300 mg (2 x 650 mg) PO BID 30 days thiamine HCl (vitamin B1) 100 mg PO DAILY HPI HPI 3 mo F/u Crohns: Details: GI clinic visit for this 74 year old female with lupus, HTN, HLD, MVP with valve calcifiation, fibromyalgia, asthma, GERD, and migraine HAs for follow-up of abdominal pain, nausea and diarrhea [place] [facility] [place] and 09/2024 TODAY'S VISIT: Patient reports body pain, abdominal pain on and off, occasoinal chocking sensation with rice. Noted lower extremity edema and takes furosemide prn. Continues to have fatigue - feels tired around 4 pm Sleep disturbance due to pain Takes pain medication twice a week BMs are normal - journey through is uncomfortable Has trouble remembering names and retaining information and having trouble with short term memory Complains of muscle weakness and has trouble getting up from the chair. Gets wiped out after a few hours of activity. Taking Budesonide 2 tab (6 mg) daily since Jun 19. Has 1-2 formed BMs a day - feels a little constipated. Patient states: Still feeling light headed and fatigued. States it could be her medication. Patient has been off Eliquis 19 days since her colo and states that she as no more and needs refills. Complains of dizziness when she moves her head. Has been eating even if she does not have an appetite. BMs are soft and formed. Nauseas with abdominal pain with burning sensation, constipation, some difficulty swallowing. Poor appetite during the day due her nauseas and afternoon she can eat because is better appetite Had a FU on 03/15 with a PA Has an Telemedicine appt in [place] on 05/11/25 PAST VISITS: Pt is accompanied by her daughter, Juliane Notes nausea in the am - able to eat Had apple juice in the am and having apple juice Feels constipated - no BM in 48 hrs Had a firm, yellow BM. Had diarrhea last week and doing Ok this week Has not taken any Loperamide this week. Appetite is great. When she eats rice, it gets stuck in the throat. No problem with other foods Having a normal BM 1-2 times a day. Also notes dizziness and vertigo (stopped dicyclomine 2 weeks ago). Has been having shooting pains in the ribs and back Notes pains in the ribs radiating to the back - - rib xray ordered. Also has an eye infection and is using antibiotic eye drops Patient cc: chronic abdominal pain, swallowing discomfort. Had a stich in the left lower ribs last night which was very painful - lasted 10 - 15 min Able to eat a regular diet. Seen by Nutrion and advised 1 chocolate milk shake Feels bloated if she eats too much. BMs are regular - notes some abdominal pain after a BM which resolves spontaneously Seen by GI at [facility] [place] and diagniosed with ? Celiac disease Had a relapse on 08/08 with projectile vomiting and diarrhea x hours Had 6-7 BMs and had 1 BM yesterday Gradually improved over the next few days Eating small meals - everything hurts - burning in her intestines She was freezing towards the end [place] exhausted towards the end Has costochondritis Normal BM hurts Complains of mouth sores for years - thought she had nutritional deficiency PT was hospitalized at [facility] [place] from 11/10/24 to 11/14/24 with RUE DVT related to PICC line and treated with Heparin followed by Apixiban. Advised to have PICC line removed after 14 days of anticoagulation and continue oral anticoagulation x 3 months Pt states diarrhea has resolved and has been constipated x 3 weeks Appetite is very good always hungry and taking small meals. Appetite and taste is coming back Has gained 1 lb over the last week (was 98 lbs last week) Had to use a cane for a while since she was feeling dizzy Patient can have a constant throat irritation (? post nasal drip) and denies heartburn, dysphagia. Takes a nausea pill once a day Notes abdominal soreness in the upper abdomen/intestines In the past she took food and took Ibuprofen after meals to help with abdominal pain and had stopped taking it. She would like to resume - since she does not want to take narcotics. Has a BM 2-3 times a day with marble like stools - plans to start taking colace. Denies recent black stools or rectal bleeding. Has developed hemorrhoids after having diarrhea recently (denies bleeding) Muscles in the back are always hurting and its painful to get up She was taking Ibuprofen 200 mg (two tab at bedtime) for the past several years. Stopped Ibuprofen since her hospitalization and she would like to resume - prescribed Celecoxib (pt is allergic to Diclofenac) Patient has MVP (valve is calcified now) and asthma and denies loud snoring or sleep apnea Denies being on chronic anticoagulation. Patient denies known family history of colon polyps, colon cancer or other GI malignancies [facility] Medical History Hypertension Mitral valve prolapse Lupus GERD (gastroesophageal reflux disease) COVID-19 long hauler Hypoglycemia Asthma Hyperlipidemia Fibromyalgia Surgical History History of esophagogastroduodenoscopy (EGD) Hx of colonoscopy H/O dilation and curettage History of breast surgery Leg fracture, right Family History Paternal Aunt Breast CA Paternal Aunt Breast CA Social History Household Members: Spouse Household Members Other:: 2 Housing: House Do you presently have visiting nurse or other home services: No Alcohol intake: never Comment: pt. refusing bed alarm . Patient Tobacco Use Status: Never used Tobacco e-Cigarette/Vaping Use: Never Used Second Hand Smoke Exposure: No Advance Directives Date on File: 10/01/24 service: No Gender identity: Female Female Reproductive History Menstrual Age of Menarche: 12 Review of Systems Const All systems reviewed & are unremarkable except as noted in HPI and below Physical Exam Vital Signs: Last Vital Signs Pulse 80 07/06/25 12:29 BP 152/76 H 07/06/25 12:29 Pulse Ox 96 07/06/25 12:29 Oxygen Delivery Method Room Air 07/06/25 12:29 BMI result Body Mass Index 20.8 Const General: no acute distress Nutritional Appearance: underweight Orientation/consciousness: patient oriented x3 HEENT Head: Yes normal to inspection Ears: hearing grossly normal bilaterally Eyes Sclerae: sclerae normal Pupils: Equal, round and reactive pupils present Neck Neck: Yes normal visual inspection Chest Chest palpation & inspection: normal inspection of the chest Resp Effort & Inspection: normal respiratory effort Auscultation: clear to auscultation bilaterally Cardio Palpation: normal PMI Rate: regular rate Rhythm: regular rhythm Heart sounds: S1 normal heart sound present, S2 normal heart sound present and no murmurs GI Palpation (GI): Soft to palpation, nontender and No hepatosplenomegaly present Auscultation: normal bowel sounds Rectal Exam - Female: deferred Skin General skin exam: no rashes or lesions noted Neuro General: patient oriented x3, gait normal and moves all extremities Cranial nerves: Yes Equal, round and reactive pupils present Psych Appearance: grossly normal Mental Status: mental status grossly normal Assessment & Plan Assessment & Plan (1) Abdominal pain: Code(s): R10.9 - Unspecified abdominal pain Category: Medical (2) Chronic diarrhea: Code(s): K52.9 - Noninfective gastroenteritis and colitis, unspecified Category: Medical (3) Crohn's disease: Code(s): K50.90 - Crohn's disease, unspecified, without complications Category: Medical Plan 74 YF with lupus, HTN, HLD, fibromyalgia, asthma, GERD, and migraines [place] [facility] [place] and 05/21 to 05/24/24 with?nausea, diarrhea, and abdominal x 5-6 days. Pt was admitted with intractable nausea, non-bloody diarrhea, and abdominal pain and altered taste 1-2 days after she started taking doxycycline. Stool studies were positive for entero-pathogenic E coli infection. Diarrhea resolved and pt complained of constipation x 3 weeks Appetite is very good always hungry and taking small meals. Appetite and taste is coming back In the past she took food and took Ibuprofen after meals to help with abdominal pain and had stopped taking it. She would like to resume - since she does not want to take narcotics. Stopped Ibuprofen since her hospitalization and she would like to resume - prescribed Celecoxib (pt is allergic to Diclofenac) Patient has MVP (valve is calcified now) and asthma and denies loud snoring or sleep apnea Pt had an EGD and colon and findings as noted above Pt was advised labs and to stop Ibuprofen and use celecoxib 100 mg PO BID instead 08/11/24 Had a relapse on 08/08 with projectile vomiting and diarrhea x hours Had 6-7 BMs and had 1 BM yesterday Gradually improved over the next few days Eating small meals - everything hurts - burning in her intestines IBD serologies were positive for Crohn's disease. Pt advised further evaluation with CT enterography, T spot To start Humira for Crohn's disease - she will come to the clinic for initial injection after approval is obtained from her insurance Pt was [place] [facility] [place] with failure to thrive: Hospital course: Patient was admitted with failure to thrive and moderate protein calorie malnutrition in the setting of Crohn's disease. She was treated with Bentyl, Imodium as needed, antiemetics, analgesics, Humira, methotrexate, budesonide. She was seen by nutrition felt caloric intake was insufficient and patient was put on peripheral parenteral nutrition. Though diet improving and diarrhea better controlled, it was felt that patient would still benefit from continuing TPN while caloric intake and weight increases as outpatient and was discharged on home TPN. For mild intermittent asthma she remained stable. For anxiety was continued on propranolol. For GERD continued on PPI. 11/17/24 pt was hospitalized at [facility] [place] from 11/10/24 to 11/14/24 with RUE DVT related to PICC line and treated with Heparin followed by Apixiban. Advised to have PICC line removed after 14 days of anticoagulation and continue oral anticoagulation x 3 months PICC line was removed by IR Seen by Nicky and advised 1 chocolate milk shake daily Feels bloated if she eats too much. BMs are regular - notes some abdominal pain after a BM which resolves spontaneously Referred to endocrinology for management of osteoporosis. Referred to Hematology Oncology for management of DVT of right upper extremity. 12/22/24 Having a normal BM 1-2 times a day. Also notes dizziness and vertigo (stopped dicyclomine 2 weeks ago). Has been having shooting pains in the ribs and back Notes pains in the ribs radiating to the back. 02/09/25 Notes nausea in the am - able to eat Had apple juice in the am Feels constipated - no BM in 48 hrs Pt advised to schedule EGD and colonoscopy. Both procedures and potential complications were reviewed with the patient and her daughter. Scheduled for a GI FU in [place] on March 09. Also has an appt to check for PCN allergy at the Allergy clinic. 07/06/25 Continues to have fatigue and sleep disturbance due to pain BMs are normal - journey through is uncomfortable Taking Budesonide 2 tab (6 mg) daily since Jun 19. Has 1-2 formed BMs a day - feels a little constipated. Pt advised to continue slowly tapering Budesonide 1 tab every 4 weeks and contact my office if she notes recurrent diarrhea. FU in 3 months - scheduled 11/09/25 Orders: Orders Vitamin B12 and Folate 07/06/25 K50.90 - Crohn's disease, unspecified, without complications, R10.9 - Unspecified abdominal pain C Reactive Protein 07/06/25 K50.90 - Crohn's disease, unspecified, without complications, R10.9 - Unspecified abdominal pain Prometheus ANSER ADA 07/06/25 K50.90 - Crohn's disease, unspecified, without complications, R10.9 - Unspecified abdominal pain Blood Urea Nitrogen 07/06/25 K50.90 - Crohn's disease, unspecified, without complications Creatinine 07/06/25 K50.90 - Crohn's disease, unspecified, without complications Coding Level of Care Code Est Pt Level 4 (52269) Diagnoses Abdominal pain R10.9 Chronic diarrhea K52.9 Crohn's disease K50.90 Time Spent (min) 25
[2025-07-06 12:29] VITALS: BP 152/76; PULSE 80; O2SAT 96; BMI 20.8
--- OUTSIDE RECORDS SUMMARY | 2025-07-06 14:32 | XMS_ITS | Encounter Summary ---
Author Organization [facility] Address [address] [place] [id number] Phone Care Team Providers Care Military Source Operations Specialist Name Role Phone Parvez Cortez MD Primary Care Prov ider Parvez Cortez MD Primary Care Prov ider Encounter Details Date Type Department Care Team (Late st Contact Info) Description 10/15/2021 Procedure Pass [facility] - [address] [place] [address] Social History Tobacco Use Types Packs/Day Years Used Date Smoking Tobacco: Never Assessed Comments No Sex and Gender Information Value Date Recorded Sex Assigned at Not on file Legal Sex Female 5:39 PM EST Gender Identity Not on file Sexual Orientation Not on file documented as of this encounter Plan of Treatment Upcoming Encounters Date Type Department Care Team (Late st Contact Info) Description 07/17/2025 2:00 PM EDT Telemedicine [facility] [address] [facility] [address] [place] [address] Gabriela Franco PA-C [address] [facility] [id number] [place] [phone] [email or web address] documented as of this encounter Visit Diagnoses Not on filedocumented in this encounter Additional Health Concerns Infection Onset Date Last Indicated Resolved Time CDiff-Risk 06/01/2024 06/01/2024 06/01/2024 10:3 6 PM EDT documented as of this encounter Care Teams Military Source Operations Specialist Relationship Specialty Start Date End Date Parvez Cortez MD [email or web address] PCP - General 08/04/17 4 Parvez Cortez MD [address] [place] [id number] PCP - General Family Medicine 06/01/24 documented as of this encounter Additional Source Comments The information contained in this document represents components of the legal health record. It is not the complete legal health record.[facility]
--- OUTSIDE RECORDS SUMMARY | 2025-07-06 14:32 | XMS_ITS | Encounter Summary ---
Author Organization [facility] Address [address] [facility] [address] [place] [phone] Phone Care Team Providers Care [employer] Name Role Phone Parvez Cortez MD Primary Care Prov ider Parvez Cortez MD Primary Care Prov ider Encounter Details Date Type Department Care Team (Late st Contact Info) Description 10/16/2021 Ancillary Orders [facility],Outside Imaging [address] [place] [address] System, Provider Not In, [facility] [address] [address] Social History Tobacco Use Types Packs/Day Years Used Date Smoking Tobacco: Never Assessed Comments Unknown Sex and Gender Information Value Date Recorded Sex Assigned at Not on file Legal Sex Female 5:39 PM EST Gender Identity Not on file Sexual Orientation Not on file documented as of this encounter Plan of Treatment Upcoming Encounters Date Type Department Care Team (Late st Contact Info) Description 07/17/2025 2:00 PM EDT Telemedicine [facility] [address] [facility] [address] [place] [address] Gabriela Franco PA-C [address] [facility] [id number] [place] [phone] [email or web address] documented as of this encounter Results * Mammogram Outside (No Interpretation) (09/15/2017 12:00 AM EST) Narrative SYSTEMGENERATED, DOCUMENTATION - 10/16/2021 11:50 AM EST This study is for PACS [...] documented as of this encounter Care Teams [employer] Relationship Specialty Start Date End Date Parvez Cortez MD PCP - General 08/04/17 4 Parvez Cortez MD [address] [place] [address] PCP - General Family Medicine 06/01/24 documented as of this encounter Additional Source Comments The information contained in this document represents components of the legal health record. It is not the complete legal health record.[facility]
--- OUTSIDE RECORDS SUMMARY | 2025-07-06 14:32 | XMS_ITS | Encounter Summary ---
Author Organization [facility] Address [address] [facility] [address] [place] [address] Phone Care Team Providers Care Fitting Room Inspector Name Role Phone Parvez Cortez MD Primary Care Prov ider Parvez Cortez MD Primary Care Prov ider Encounter Details Date Type Department Care Team (Late st Contact Info) Description 10/16/2021 Ancillary Orders [facility],Outside Imaging [address] [place] [address] System, Provider Not In, PhD Partners [address] [address] Social History Tobacco Use Types Packs/Day Years [...] Info) Description 07/17/2025 2:00 PM EDT Telemedicine [facility] [address] [facility] 9th [place] [address] Gabriela Franco PA-C [address] [facility] [address] [place] [phone] [email or web address] documented as of this encounter Results * US Breast Outside (No Interpretation) (07/31/2020 12:00 AM EDT) Narrative SYSTEMGENERATED, DOCUMENTATION - 10/16/2021 11:53 AM EST This study is for PACS [...] documented as of this encounter Care Teams Fitting Room Inspector Relationship Specialty Start Date End Date Parvez Cortez MD PCP - General 08/04/17 4 Parvez Cortez MD [address] [place] [address] PCP - General Family Medicine 06/01/24 documented as of this encounter Additional Source Comments The information contained in this document represents components of the legal health record. It is not the complete legal health record.[facility]
--- OUTSIDE RECORDS SUMMARY | 2025-07-06 14:32 | XMS_ITS | Clinical Summary ---
Author Organization [facility] Address [address] [place] [address] Phone Care Team Providers Care Clinic Physician Name Role Phone Parvez Cortez MD Primary Care Prov ider Allergies Active Allergy Reactions Criticality Noted Date Comments Acetaminophen 01/18/2024 Restless leg Atropine-Demerol High 11/08/2024 LOC Diphenhydramine Hcl 04/23/2021 Restless leg, agitation Clindamycin Hcl 01/18/2024 Codeine 01/18/2024 Cyclizine 11/08/2024 Levofloxacin 01/18/2024 Lidocaine-Epinephrine (Pf) 4 Meperidine 01/18/2024 Morphine 01/18/2024 Penicillins 04/23/2021 From childhood - makes her itchy Procaine 01/18/2024 Sulfa (Sulfonamide Antibiotics) 04/23/2021 Mom was allergic and thinks she also reacted Medications montelukast (SINGULAIR) 10 mg tablet Take 10 mg by mouth daily. 1 Active carisoprodol (SOMA) 350 MG tablet Take 350 mg by mouth daily. 1 Active RESTASIS 0.05 % suspension Place 1 drop into each eye every 12 (twelve) hours. 4 Active albuterol 90 mcg/actuation inhaler 1 puff every 4 (four) hours as needed. 4 Active budesonide (ENTOCORT EC) 3 mg 24 hr capsule Take 9 mg by mouth every morning. 4 Active celecoxib (CELEBREX) 100 MG capsule Take 100 mg by mouth daily. 4 Active dicyclomine (BENTYL) 10 MG capsule Take 10 mg by mouth 4 (four) times a day before meals and nightly. 4 Active folic acid (FOLVITE) 1 MG tablet Take 1 mg by mouth daily. 4 Active adalimumab-adaz (HYRIMOZ,CF, PEN) 80 mg/0.8 mL PnIj Inject 0.8 mL as directed every 14 (fourteen) days. 4 Active melatonin 1 mg Tab Take 1 mg by mouth nightly at bedtime. take 1 @ 12:30am and 1 @ 1:30am 2 Active methotrexate, PF, 12.5 mg/0.25 mL AtIn Inject 0.5 mL under the skin once a week. 5 Active promethazine (PHENERGAN) 25 MG tablet Take 25 mg by mouth every 8 (eight) hours as needed for nausea. 5 Active budesonide (PULMICORT FLEXHALER) 180 mcg/actuation inhaler Inhale 1 puff into the lungs 2 (two) times a day. 4 Active apixaban (ELIQUIS) 5 mg tablet Take 1 tablet (5 mg total) by mouth 2 (two) times a day. 60 tablet 2 5 Active Additional Information Patient not taking.Reported on 03/15/2025 multivitamin with fqddhvrn-quow-r olic acid (ONE-A-DAY WOMEN'S COMPLETE) 18 mg iron- 400 mcg Tab per tablet Take 1 tablet by mouth daily. 90 tablet 3 5 Active Active Problems Problem Noted Date Diagnosed Date Thrombus 11/10/2024 Chronic fatigue 01/18/2024 Long COVID 08/14/2023 Assessment & Plan (08/14/2023 9:50 AM EDT): Symptoms are likely multifactorial in nature but certainly seem to have an aspect of long COVID. Given her dizziness, which may have a component of vertigo, she is referred to physical therapy. She is also referred for physical therapy for and straining. Even her continued fatigue, and difficulty with sleep, she is referred for a sleep study. Her anxiety and depression screenings are positive. She is not interested in any pharmacologic therapy at this point. She would benefit from resiliency training, and she is [facility] [employer] [place] [facility] [place] Discussed that long COVID is an evolving disease process and that we don't understand the underlying pathophysiology completely as of yet. This means that we are treating lasting symptoms and conditions which may be exacerbated by long-COVID. As more information becomes available, we will contact patients to return to ID clinic. Current recommendation is to follow-up with ID as needed. Encounters Date Type Department Care Team Description 05/11/2025 10:00 AM EDT Telemedicine [facility] [address] [facility] 9th [place] [address] Henrique Roberto MBBS, MPH Malnutrition, unspecified type (Primary Dx); Crohn's disease with other complication, unspecified gastrointestinal tract location; Diarrhea, unspecified type from Last 3 Months Immunizations Immunization Administration Dates Next Due 21-influenza Tiv (Im)i 11/29/2024(Deferred: Lia ent Decision) Family History Medical History Relation Comments Alcohol abuse Father Heart disease Father Hyperlipidemia Father Diabetes Mother Heart disease Mother hepatitis c Mother Breast cancer Paternal Aunt Relation Status Comments Father Mother Paternal Aunt Social History Tobacco Use Types Packs/Day Years Used Date Smoking Tobacco: Never Smokeless Tobacco: Never Tobacco Cessation:Counseling Given: Not Answered Home Health Assessment: Transportation Answer Date Recorded [...] on file Sexual Orientation Not on file Last Filed Vital Signs Vital Sign Reading Time Taken Comments Blood Pressure 162/79 03/15/2025 3:28 PM EDT Pulse 82 03/15/2025 3:28 PM EDT Temperature 37.1 C (98.8 F) 03/15/2025 3:28 PM EDT Respiratory Rate 12 11/28/2024 11:12 AM EST Oxygen Saturation 98% 03/15/2025 3:28 PM EDT Inhaled Oxygen Concentration - - Weight 45.4 kg (100 lb) 03/15/2025 3:28 PM EDT Height 157.5 cm (5' 2.01 ) 03/15/2025 3:28 PM ED T Body Mass Index 18.29 03/15/2025 3:28 PM EDT Plan of Treatment Upcoming Encounters Date Type Department Care Team ([facility] st Contact Info) Description 07/17/2025 2:00 PM EDT Telemedicine [facility] [address] [facility] 9th [place] [address] Gabriela Franco PA-C [address] [facility] [address] [place] [phone] [email or web address] Health Maintenance Due Date Last Done Comments LIPID PANEL 1951 HEPATITIS C SCREENING 1969 ZOSTER VACCINES (1 of 2) 1970 COLOGUARD 1996 COLONOSCOPY 1996 COLORECTAL CANCER SCREENING 1996 FIT TEST 1996 FOBT 1996 SIGMOIDOSCOPY 1996 VIRTUAL COLONOSCOPY 1996 RSV VACCINE (1 - Risk 60-74 years 1-dose series) 2011 OSTEOPOROSIS SCREENING INITIAL (ONE-TIME) 2016 PNEUMOCOCCAL VACCINES (50+ years) (2 of 2 - PPSV23) 10/07/2018 08/12/2018 MAMMOGRAM 10/21/2023 10/21/2021, 07/19, 12/13/2019, Additional history exists DEPRESSION SCREENING 08/13/2024 08/13/2023, 08/13/20 23 INFLUENZA VACCINE (#1) 2025 , 09/08/2019, 08/12/2018 COVID-19 VACCINE ( - season) 2025 08/13/2021, 02/06/2021, 01/15/2021 CREATININE LEVEL 02/02/2026 02/02/2025, , 11/13/2024, Additional history exists Adult Td,Tdap Booster 07/28/2032 07/28/2022, 010 SMOKING STATUS SCREENING (Once After 26 Yrs) Completed 05/11/2025 HEPATITIS A VACCINES Aged Out No long er eligible based on patient's age to complete this topic HIB VACCINES Aged Out No longer eligi ble based on patient's age to complete this topic MENINGOCOCCAL VACCINES (ACWY) Aged Out No longer eligible based on patient's age to complete this topic MENINGOCOCCAL VACCINES (B) Aged Out N o longer eligible based on patient's age to complete this topic Medical Devices Not on file Procedures Procedure Name Priority Date/Time Associated Diagnosis Comments BASIC METABOLIC PANEL Routine 02/02/2025 5:26 PM EDT Diarrhea, unspecified type BI MAMMOGRAM DIAGNOSTIC WITH TOMOSYNTHESIS WITH CAD (BILATERAL) Routine 10/21/2021 1:25 PM EST Unspecified lump in the right breast, unspecified quadrant from Last 3 Months or Most Recently Relevant to Health Maintenance Results * (ABNORMAL) Basic metabolic panel (02/02/2025 5:26 PM EDT) SODIUM 143 135 - 145 mmol/L [facility] POTASSIUM 3.3(L) 3.4 - 5.0 mmol/L [facility] CHLORIDE 113(H) 98 - 108 mmol/L [facility] CO2 17(L) 23 - 32 mmol/L [facility] BUN 6(L) 8 - 25 mg/dL [facility] CREATININE 0.71 0.50 - 1.00 mg/dL [facility] GLUCOSE 107 70 - 110 mg/dL [facility] CALCIUM 9.0 8.5 - 10.5 mg/dL [facility] EGFR 90 >59 mL/min/1. 73m2 [facility] Comment:Estimated glomerular filtration rate calculated using the CKD-EPI refit equation. ANION GAP 13 3 - 17 mmol/L [facility] 02/02/2025 5:26 PM EDT 02/02/2025 6:42 PM EDT Henrique CABALLERO, MPH LAB BLOOD ORD ERABLES Final Result [address] [address] * BI MAMMOGRAM DIAGNOSTIC WITH TOMOSYNTHESIS WITH CAD (BILATERAL) (10/21/2021 1:25 PM EST) Anatomical Region Laterality Modality Breast Left, Breast Right, Breast Bilateral Bila teral Mammography 10/21/2021 1:33 PM EST Impressions 10/21/2021 2:04 PM EST No findings to account for the patient's right breast lump and pain. Clinical follow-up recommended. No mammographic evidence of malignancy. Recommend return to routine annual surveillance. Findings relayed to the patient via the technologist. BI-RADS CATEGORY: 2 - Benign finding. DENSITY: The breast tissue is heterogeneously dense, which could obscure a lesion on mammography. LEFT RECOMMENDATION DUE DATE: on schedule Left Mammography Screening RIGHT RECOMMENDATION DUE DATE: on schedule Right Clinical FollowUp Narrative 10/21/2021 2:04 PM EST 71-year-old female who presents for a right breast lump. Comparison made to previous on 07/31/2020 and as far back as 09/07/2008. Interpretation made in conjunction with computer-aided detection and tomosynthesis. Standard views obtained. The breasts are heterogeneously dense, which may obscure small masses. Chronic bilateral micro and vascular calcifications. No suspicious mass, architectural distortion or suspicious cluster of microcalcifications. Right breast ultrasound was obtained. No abnormality identified at the site of pain. Tiana Gil NP IMG MG EXAMS Susan l Result from Last 3 Months or Most Recently Relevant to Health Maintenance Insurance EXPLORER POS [facility] EXPLORER POS [facility] EXPLORER POS [facility] EXPL[employer]ER POS [facility] EXPLORER POS [facility] EXPLORER POS Advance Directives For more information, please contact: [phone] (9AM - 5PM [facility], Thursday-Thursday) * Full Code (Latest Code Status on File) Date Activated Date Inactivated Comments 11/11/2024 4:10 AM Question Answer Comments Code Status Confirmed With: Patient Care Teams Clinic Physician Relationship Specialty Start Date End Date Parvez Cortez MD [address] [place] [address] PCP - General Family Medicine 06/01/24 Additional Source Comments The information contained in this document represents components of the legal health record. It is not the complete legal health record.[facility]
--- OUTSIDE RECORDS SUMMARY | 2025-07-06 14:32 | XMS_ITS | Encounter Summary ---
Author Organization [facility] Address [address] [email or web address] [facility] [address] [place] [address] Phone Care Team Providers Care Veterinary Meat Inspector Name Role Phone Parvez Cortez MD Primary Care Prov ider Parvez Cortez MD Primary Care Prov ider Encounter Details Date Type Department Care Team (Late st Contact Info) Description 10/16/2021 Ancillary Orders [facility],Outside Imaging [address] [place] [address] System, Provider Not In, PhD Partners [address] [address] Social History Tobacco Use Types Packs/Day Years [...] Info) Description 07/17/2025 2:00 PM EDT Telemedicine [facility] [place] [address] [facility] 9th [place] [address] Gabriela Franco PA-C [address] [facility] [address] [place] [phone] [email or web address] documented as of this encounter Results [...] documented as of this encounter Care Teams Veterinary Meat Inspector Relationship Specialty Start Date End Date Parvez Cortez MD PCP - General 08/04/17 4 Parvez Cortez MD [address] [place] [address] PCP - General Family Medicine 06/01/24 documented as of this encounter Additional Source Comments The information contained in this document represents components of the legal health record. It is not the complete legal health record.[facility]
--- OUTSIDE RECORDS SUMMARY | 2025-07-06 14:32 | XMS_ITS | Encounter Summary ---
Author Organization [facility] Address [address] [facility] [address] [place] [address] Phone Care Team Providers Care Insurance Assistant Name Role Phone Parvez Cortez MD Primary Care Prov ider Parvez Cortez MD Primary Care Prov ider Encounter Details Date Type Department Care Team (Late st Contact Info) Description 10/16/2021 Ancillary Orders [facility],Outside Imaging [address] [place] [address] System, Provider Not In, PhD Partners [address] [address] Social History Tobacco Use Types Packs/Day Years [...] Info) Description 07/17/2025 2:00 PM EDT Telemedicine [facility] [address] [facility] 9th [place] [address] Gabriela Franco PA-C [address] [facility] [address] [place] [phone] [email or web address] documented as of this encounter Results [...] documented as of this encounter Care Teams Insurance Assistant Relationship Specialty Start Date End Date Parvez Cortez MD PCP - General 08/04/17 4 Parvez Cortez MD [address] [place] [address] PCP - General Family Medicine 06/01/24 documented as of this encounter Additional Source Comments The information contained in this document represents components of the legal health record. It is not the complete legal health record.[facility]
--- OUTSIDE RECORDS SUMMARY | 2025-07-06 14:32 | XMS_ITS | Encounter Summary ---
Author Organization [facility] Address [address] [employer] [facility] [address] [place] [address] Phone Care Team Providers Care General Dentist/Owner Name Role Phone Parvez Cortez MD Primary Care Prov ider Parvez Cortez MD Primary Care Prov ider Encounter Details Date Type Department Care Team (Late st Contact Info) Description 10/16/2021 Ancillary Orders [facility],Outside Imaging [address] [place] [address] System, Provider Not In, PhD Partners [address] [address] Social History Tobacco Use Types Packs/Day Years [...] Info) Description 07/17/2025 2:00 PM EDT Telemedicine [facility] [address] [facility] 9th [place] [address] Gabriela Franco PA-C [address] [facility] [address] [place] [phone] [email or web address] documented as of this encounter Results * Mammogram Outside (No Interpretation) (12/13/2019 12:00 AM EST) Narrative SYSTEMGENERATED, DOCUMENTATION - 10/16/2021 11:52 AM EST This study is for PACS [...] documented as of this encounter Care Teams General Dentist/Owner Relationship Specialty Start Date End Date Parvez Cortez MD PCP - General 08/04/17 4 Parvez Cortez MD [address] [place] [address] PCP - General Family Medicine 06/01/24 documented as of this encounter Additional Source Comments The information contained in this document represents components of the legal health record. It is not the complete legal health record.[facility]
--- OUTSIDE RECORDS SUMMARY | 2025-07-06 14:32 | XMS_ITS | Encounter Summary ---
Author Organization [facility] Address [address] [facility] [address] [place] [address] Phone Care Team Providers Care Street Car Mechanic Name Role Phone Parvez Cortez MD Primary Care Prov ider Parvez Cortez MD Primary Care Prov ider Encounter Details Date Type Department Care Team (Late st Contact Info) Description 10/16/2021 Ancillary Orders [facility],Outside Imaging [address] [place] [address] System, Provider Not In, PhD Partners [address] [address] Social History Tobacco Use Types Packs/Day Years [...] Info) Description 07/17/2025 2:00 PM EDT Telemedicine [facility] [address] [facility] 9th [place] [address] Gabriela Franco PA-C [address] [facility] [address] [place] [phone] [email or web address] documented as of this encounter Results * Mammogram Outside (No Interpretation) (07/31/2020 12:05 AM EDT) Narrative SYSTEMGENERATED, DOCUMENTATION - 10/16/2021 11:54 AM EST This study is for PACS [...] documented as of this encounter Care Teams Street Car Mechanic Relationship Specialty Start Date End Date Parvez Cortez MD PCP - General 08/04/17 4 Parvez Cortez MD [address] [place] [address] PCP - General Family Medicine 06/01/24 documented as of this encounter Additional Source Comments The information contained in this document represents components of the legal health record. It is not the complete legal health record.[facility]
--- OUTSIDE RECORDS SUMMARY | 2025-07-06 14:32 | XMS_ITS | Encounter Summary ---
Author Organization [facility] Address [address] [employer] [facility] [address] [place] [address] Phone Care Team Providers Care Switchboard Receptionist Name Role Phone Parvez Cortez MD Primary Care Prov ider Parvez Cortez MD Primary Care Prov ider Encounter Details Date Type Department Care Team (Late st Contact Info) Description 10/16/2021 Ancillary Orders [facility],Outside Imaging 30 [place] [address] System, Provider Not In, PhD Partners [address] [address] Social History Tobacco Use Types Packs/Day Years [...] Info) Description 07/17/2025 2:00 PM EDT Telemedicine [facility] [address] [facility] 9th [place] [address] Gabriela Franco PA-C [address] [facility] [address] [place] [phone] [email or web address] documented as of this [...] documented as of this encounter Care Teams Switchboard Receptionist Relationship Specialty Start Date End Date Parvez Cortez MD PCP - General 08/04/17 4 Parvez Cortez MD [address] [place] [address] PCP - General Family Medicine 06/01/24 documented as of this encounter Additional Source Comments The information contained in this document represents components of the legal health record. It is not the complete legal health record.[facility]
--- OUTSIDE RECORDS SUMMARY | 2025-07-06 14:32 | XMS_ITS | Encounter Summary ---
Author Organization [facility] Address [address] [facility] [address] [place] [address] Phone Care Team Providers Care Inside Sales Agent Name Role Phone Parvez Cortez MD Primary Care Prov ider Parvez Cortez MD Primary Care Prov ider Encounter Details Date Type Department Care Team (Late st Contact Info) Description 12/07/2020 Transcribe Orders Virtual Department 30 [place] [address] Kami Mena PA [address] [place], [place] [phone] Muscle ache (Primary Dx); Stuffy and runny nose Social History Tobacco Use Types Packs/Day Years Used Date Smoking Tobacco: Never Assessed Comments Unknown Sex and Gender Information Value Date Recorded Sex Assigned at Not on file Legal Sex Female 5:39 PM EST Gender Identity Not on file Sexual Orientation Not on file documented as of this encounter Plan of Treatment Upcoming Encounters Date Type Department Care Team (Late Contact Info) Description 07/17/2025 2:00 PM EDT Telemedicine [facility] [address] [facility] 9th [place] [address] Gabriela Franco PA-C [address] [facility] [phone] [place] [address] [email or web address] documented as of this encounter Visit Diagnoses Diagnosis Muscle ache- Primary Unspecified myalgia and myositis Stuffy and runny nose Other diseases of nasal cavity and sinuses documented in this encounter Additional Health Concerns Infection Onset Date Last Indicated Resolved Time CoV-Risk 12/07/2020 12/07/2020 12/17/2020 1:23 AM EST CDiff-Risk 06/01/2024 06/01/2024 06/01/2024 10:3 6 PM EDT documented as of this encounter Care Teams Inside Sales Agent Relationship Specialty Start Date End Date Parvez Cortez MD PCP - General 08/04/17 4 Parvez Cortez MD [address] [place] [address] PCP - General Family Medicine 06/01/24 documented as of this encounter Additional Source Comments The information contained in this document represents components of the legal health record. It is not the complete legal health record.[facility]
--- OUTSIDE RECORDS SUMMARY | 2025-07-06 14:32 | XMS_ITS | Encounter Summary ---
Author Organization [facility] Address [address] [facility] [address] [place] [address] Phone Care Team Providers Care Shop Laborer Name Role Phone Parvez Cortez MD Primary Care Prov ider Parvez Cortez MD Primary Care Prov ider Encounter Details Date Type Department Care Team (Late Contact Info) Description 09/16/2022 Transcribe Orders Virtual Department 30 [place] [address] Parvez Cortez MD [address] [place], [place] [phone] [email or web address] Essential (primary) hypertension (Primary Dx) Social History Tobacco Use Types Packs/Day Years [...] Description 07/17/2025 2:00 PM EDT Telemedicine [facility] [address] [facility] 9th [place] [address] Gabriela Franco PA-C [address] [facility] [address] [place] [address] [email or web address] documented as of this encounter Visit Diagnoses Diagnosis Essential (primary) hypertension- Primary Unspecified essential hypertension documented in this encounter Additional Health Concerns Infection Onset Date Last Indicated Resolved Time CDiff-Risk 06/01/2024 06/01/2024 06/01/2024 10:3 6 PM EDT documented as of this encounter Care Teams Shop Laborer Relationship Specialty Start Date End Date Parvez Cortez MD PCP - General 08/04/17 4 Parvez Cortez MD [address] [place] [address] PCP - General Family Medicine 06/01/24 documented as of this encounter Additional Source Comments The information contained in this document represents components of the legal health record. It is not the complete legal health record.[facility]
--- OUTSIDE RECORDS SUMMARY | 2025-07-06 14:32 | XMS_ITS | Encounter Summary ---
Author Organization [facility] Address [address] [facility] [address] [place] [address] Phone Care Team Providers Care Sociology Instructor Name Role Phone Parvez Cortez MD Primary Care Prov ider Parvez Cortez MD Primary Care Prov ider Encounter Details Date Type Department Care Team (Late st Contact Info) Description 10/15/2021 Procedure Pass [facility] - [address] [place] [address] Social History Tobacco Use Types Packs/Day Years [...] Info) Description 07/17/2025 2:00 PM EDT Telemedicine [facility] [place] [facility] [address] [facility] 9th [place] [address] Gabriela Franco PA-C [address] [facility] [address] [place] [phone] [email or web address] documented as of this encounter Visit Diagnoses Not on filedocumented in this encounter Additional Health Concerns Infection Onset Date Last Indicated Resolved Time CDiff-Risk 06/01/2024 06/01/2024 06/01/2024 10:3 6 PM EDT documented as of this encounter Care Teams Sociology Instructor Relationship Specialty Start Date End Date Parvez Cortez MD PCP - General 08/04/17 4 Parvez Cortez MD [address] [place] [address] PCP - General Family Medicine 06/01/24 documented as of this encounter Additional Source Comments The information contained in this document represents components of the legal health record. It is not the complete legal health record.[facility]
== END 2025-07-06 13:19 | disposition home or self-care (01) ==
PROVIDERS: PCP Family Medicine; Visit Provider Internal Medicine Gastroenterology
DX: R10.9 Unspecified abdominal pain (principal); K52.9 Noninfective gastroenteritis and colitis, unspecified; K50.90 Crohn's disease, unspecified, without complications
CPT/HCPCS: 99214

== ENCOUNTER 2025-07-23 14:00 | Outpatient (REF) | payer OTHER, SELFPAY ==
--- OUTSIDE RECORDS SUMMARY | 2012-08-24 01:00 | XMS_ITS | Encounter Summary ---
Author Organization [facility] Address [address] [place] [address] Phone Care Team Providers Care Logistics/Shipper Name Role Phone Unavailable Primary Care Provider Unavailabl e Encounter Details Date Type Department Care Team (Late st Contact Info) Description 08/24/2012 Hospital Encounter [facility],Outside Imaging 30 [place] [address] System, Provider Not In, PhD [address] [address] Social History Tobacco Use Types Packs/Day Years [...] 11/11/2024 9:38 PM Sylvia Galan RN * [place] Suicide Severity Rating Scale (Screener/Recent Self-Report) Question [...] Info) Description 09/28/2025 9:00 AM EST Telemedicine [facility] [facility] 165 [facility] [address] [address] Henrique Mar MBBS, MPH [address] [place] [phone] [email or web address] documented as of this encounter Procedures Procedure [...] It is not the complete legal health record.[facility]
--- OUTSIDE RECORDS SUMMARY | 2013-10-13 01:00 | XMS_ITS | Encounter Summary ---
Author Organization [facility] Address [address] [place] [address] Phone Care Team Providers Care Insert Cutter Name Role Phone Unavailable Primary Care Provider Unavailabl e Encounter Details Date Type Department Care Team (Late st Contact Info) Description 10/13/2013 Hospital Encounter [facility],Outside Imaging 30 [place] [address] System, Provider Not In, PhD Partners [address] [address] Social History Tobacco Use Types Packs/Day Years [...] 11/11/2024 9:38 PM Sylvia Galan RN * [place] Suicide Severity Rating Scale (Screener/Recent Self-Report) Question [...] Info) Description 09/28/2025 9:00 AM EST Telemedicine [facility] 165 [facility] 9[place] [address] Henrique Mar MBBS, MPH [address] [place] [phone] [email or web address] documented as of this encounter Procedures [...] It is not the complete legal health record.[facility]
--- OUTSIDE RECORDS SUMMARY | 2013-10-13 01:05 | XMS_ITS | Encounter Summary ---
Author Organization [facility] Address [address] [place] [phone] Phone Care Team Providers Care Title Lawyer Name Role Phone Unavailable Primary Care Provider Unavailabl e Encounter Details Date Type Department Care Team (Late st Contact Info) Description 10/13/2013 12:05 AM EST Hospital Encounter [facility],Outside Imaging 30 [place] [address] System, Provider Not In, PhD Partners [address] [address] Social History Tobacco Use Types Packs/Day Years [...] 11/11/2024 9:38 PM Sylvia Galan RN * [place] Suicide Severity Rating Scale (Screener/Recent Self-Report) Question [...] Info) Description 09/28/2025 9:00 AM EST Telemedicine [facility] 165 [facility] 9th [place] [address] Henrique Mar MBBS, MPH [address] [place] [phone] [email or web address] documented as of this encounter [...]
--- OUTSIDE RECORDS SUMMARY | 2025-07-24 10:27 | XMS_ITS | Encounter Summary ---
Author Organization [facility] Address [address] [place] [address] Phone Care Team Providers Care Leather Softener Name Role Phone Parvez Cortez MD Primary Care Prov ider Parvez Cortez MD Primary Care Prov ider Fern Blackburn MD Unavailable [phone] Encounter Details Date Type Department Care Team (Late st Contact Info) Description 12/07/2020 Transcribe Orders Virtual Department [address] [place] [address] Kami Mena PA 238 [place] [address] Muscle ache (Primary Dx); Stuffy and runny [...] Info) Description 09/28/2025 9:00 AM EST Telemedicine [facility] [place] [facility] [address] [facility] [address], [place] [address] Henrique Mar, ADA, MPH [address] [place] [phone] [email or web address] documented as of this encounter [...] documented as of this encounter Care Teams Leather Softener Relationship Specialty Start Date End Date Parvez Cortez MD PCP - General 08/04/17 4 Parvez Cortez MD 238 [place] [address] PCP - General Family Medicine 06/01/24 Fern Blackburn MD [address] [place] [address] Dr Conklin 3 [place] [address] Gastroenterology 07/17/25 documented as of this encounter Additional Source Comments The information contained in this document represents components of the legal health record. It is not the complete legal health record.[facility]
--- OUTSIDE RECORDS SUMMARY | 2025-07-24 10:28 | XMS_ITS | Encounter Summary ---
Author Organization [facility] Address [address] [place] [address] Phone Care Team Providers Care Is Technician Name Role Phone Parvez Cortez MD Primary Care Prov ider Parvez Cortez MD Primary Care Prov ider Fern Blackburn MD Unavailable [phone] Encounter Details Date Type Department Care Team (Late st Contact Info) Description 10/16/2021 Ancillary Orders [facility],Outside Imaging 30 [place] [address] System, Provider Not In, PhD Partners [address] [address] Social History Tobacco Use Types Packs/Day Years [...] Info) Description 09/28/2025 9:00 AM EST Telemedicine [facility] [place] [facility] [address] [facility] 9th [place] [address] Henrique Mar MBBS, MPH [address] [facility] 980 [place] [phone] [email or web address] documented as of this encounter Results [...] documented as of this encounter Care Teams Is Technician Relationship Specialty Start Date End Date Parvez Cortez MD PCP - General 08/04/17 4 Parvez Cortez MD 238 [place] [address] PCP - General Family Medicine 06/01/24 Fern Blackburn MD [address] [place] [address] Dr Conklin [address] [place] [address] Gastroenterology 07/17/25 documented as of this encounter Additional Source Comments The information contained in this document represents components of the legal health record. It is not the complete legal health record.[facility]
--- OUTSIDE RECORDS SUMMARY | 2025-07-24 10:28 | XMS_ITS | Encounter Summary ---
Author Organization [facility] Address [address] [place] [address] Phone Care Team Providers Care Veterinary Medicine Doctor Name Role Phone Parvez Cortez MD Primary Care Prov ider Parvez Cortez MD Primary Care Prov ider Fern Blackburn MD Unavailable [phone] Encounter Details Date Type Department Care Team (Late Contact Info) Description 09/16/2022 Transcribe Orders Virtual Department 30 [place] [address] Parvez Cortez MD 238 [place] [address] [email or web address] Essential (primary) hypertension (Primary Dx) Social History [...] Department Care Team (Late Contact Info) Description 09/28/2025 9:00 AM EST Telemedicine [facility] [place] [facility] [address] [facility] 9th [place] [address] Henrique Mar MBBS, MPH [address] [facility] [address] 980 [place] [phone] [email or web address] documented as of this encounter Visit Diagnoses Diagnosis Essential (primary) hypertension- Primary Unspecified essential hypertension documented in this encounter Additional Health Concerns Infection Onset Date Last Indicated Resolved Time CDiff-Risk 06/01/2024 06/01/2024 06/01/2024 10:3 6 PM EDT documented as of this encounter Care Teams Veterinary Medicine Doctor Relationship Specialty Start Date End Date Parevz Cortez MD PCP - General 08/04/17 4 Parvez Cortez MD 238 [place] [address] PCP - General Family Medicine 06/01/24 Fern Blackburn MD [address] [place] [address] [place] [address] Gastroenterology 07/17/25 documented as of this encounter Additional Source Comments The information contained in this document represents components of the legal health record. It is not the complete legal health record.[facility]
--- OUTSIDE RECORDS SUMMARY | 2025-07-24 10:28 | XMS_ITS | Encounter Summary ---
Author Organization [facility] Address [address] [place] [address] Phone Care Team Providers Care Medical Reimbursement Specialist Name Role Phone Parvez Cortez MD Primary Care Prov ider Parvez Cortez MD Primary Care Prov ider Fern Blackburn MD Unavailable [phone] Encounter Details Date Type Department Care Team (Late st Contact Info) Description 10/16/2021 Ancillary Orders [facility],Outside Imaging 30 [place] [address] System, Provider Not In, PhD Partners [address] [address] Social History Tobacco Use Types Packs/Day Years [...] Info) Description 09/28/2025 9:00 AM EST Telemedicine [facility] [place] [facility] [address] [facility] 9th [place] [address] Henrique Mar MBBS, MPH [address] [facility] 980 [place] [phone] [email or web address] documented as of this encounter Results * [...] documented as of this encounter Care Teams Medical Reimbursement Specialist Relationship Specialty Start Date End Date Parvez Cortez MD PCP - General 08/04/17 4 Parvez Cortez MD 238 [place] [address] PCP - General Family Medicine 06/01/24 Fern Blackburn MD [address] [place] [address] Dr Conklin [address] [place] [address] Gastroenterology 07/17/25 documented as of this encounter Additional Source Comments The information contained in this document represents components of the legal health record. It is not the complete legal health record.[facility]
--- OUTSIDE RECORDS SUMMARY | 2025-07-24 10:28 | XMS_ITS | Encounter Summary ---
Author Organization [facility] Address [address] [place] [address] Phone Care Team Providers Care Mold Loft Worker Name Role Phone Parvez Cortez MD Primary Care Prov ider Parvez Cortez MD Primary Care Prov ider Fern Blackburn MD Unavailable [phone] Encounter Details Date Type Department Care Team (Late st Contact Info) Description 10/16/2021 Ancillary Orders [facility],Outside Imaging 30 [place] [address] System, Provider Not In, PhD Partners [address] [address] Social History Tobacco Use Types Packs/Day Years [...] Info) Description 09/28/2025 9:00 AM EST Telemedicine [facility] [place] [facility] [address] [facility] 9th [place] [address] Henrique Mar MBBS, MPH [address] [facility] 980 [place] [phone] [email or web address] documented as of this encounter Results * [...] documented as of this encounter Care Teams Mold Loft Worker Relationship Specialty Start Date End Date Parvez Cortez MD PCP - General 08/04/17 4 Parvez Cortez MD 238 [place] [address] PCP - General Family Medicine 06/01/24 Fern Blackburn MD [address] [place] [address] Dr Conklin [address] [place] [address] Gastroenterology 07/17/25 documented as of this encounter Additional Source Comments The information contained in this document represents components of the legal health record. It is not the complete legal health record.[facility]
--- OUTSIDE RECORDS SUMMARY | 2025-07-24 10:28 | XMS_ITS | Encounter Summary ---
Author Organization [facility] Address [address] [place] [address] Phone Care Team Providers Care Fiber Optic Assembly Worker Name Role Phone Parvez Cortez MD Primary Care Prov ider Parvez Cortez MD Primary Care Prov ider Fern Blackburn MD Unavailable [phone] Encounter Details Date Type Department Care Team (Late st Contact Info) Description 10/16/2021 Ancillary Orders [facility],Outside Imaging 30 [place] [address] System, Provider Not In, PhD Partners [address] [address] Social History Tobacco Use Types Packs/Day Years [...] Info) Description 09/28/2025 9:00 AM EST Telemedicine [facility] 165 [facility] 9th [place] [address] Henrique Mar MBBS, MPH [address] [facility] 980 [place] [phone] [email or web address] beds at [facility] documented as of this encounter Results [...] documented as of this encounter Care Teams Fiber Optic Assembly Worker Relationship Specialty Start Date End Date Parvez Cortez MD PCP - General 08/04/17 4 Parvez Cortez MD 238 [place] [address] PCP - General Family Medicine 06/01/24 Fern Blackburn MD [address] [place] [address] Dr Conklin 3 [place] [address] Gastroenterology 07/17/25 documented as of this encounter Additional Source Comments The information contained in this document represents components of the legal health record. It is not the complete legal health record.[facility]
--- OUTSIDE RECORDS SUMMARY | 2025-07-24 10:28 | XMS_ITS | Encounter Summary ---
Author Organization [facility] Address [address] [place] [address] Phone Care Team Providers Care Paving Stone Installer Name Role Phone Parvez Cortez MD Primary Care Prov ider Parvez Cortez MD Primary Care Prov ider Fern Blackburn MD Unavailable [phone] Encounter Details Date Type Department Care Team (Late st Contact Info) Description 10/15/2021 Procedure Pass [facility] - [address] [place] [address] Social History Tobacco Use Types Packs/Day Years [...] Info) Description 09/28/2025 9:00 AM EST Telemedicine [facility] [place] [facility] [address] 9th [place] [address] Henrique Mar MBBS, MPH [address] [facility] 980 [place] [phone] [email or web address] documented as of this encounter Visit Diagnoses Not on filedocumented in this encounter Additional Health Concerns Infection Onset Date Last Indicated Resolved Time CDiff-Risk 06/01/2024 06/01/2024 06/01/2024 10:3 6 PM EDT documented as of this encounter Care Teams Paving Stone Installer Relationship Specialty Start Date End Date Parvez Cortez MD PCP - General 08/04/17 4 Parvez Cortez MD [address] [place] [address] PCP - General Family Medicine 06/01/24 Fern Blackburn MD [address] [place] [address] Dr Conklin [address] [place] [address] Gastroenterology 07/17/25 documented as of this encounter Additional Source Comments The information contained in this document represents components of the legal health record. It is not the complete legal health record.[facility]
--- OUTSIDE RECORDS SUMMARY | 2025-07-24 10:28 | XMS_ITS | Encounter Summary ---
Author Organization [facility] Address [address] [place] [address] Phone Care Team Providers Care Repossessor Name Role Phone Parvez Cortez MD Primary Care Prov ider Parvez Cortez MD Primary Care Prov ider Fern Blackburn MD Unavailable [phone] Encounter Details Date Type Department Care Team (Late st Contact Info) Description 10/16/2021 Ancillary Orders [facility],Outside Imaging 30 [place] [address] System, Provider Not In, PhD Partners [address] [address] Social History Tobacco Use Types Packs/Day Years [...] 09/28/2025 9:00 AM EST Telemedicine [facility] [place] [facility] 165 [facility] 9th [place] [address] Henrique Mar MBBS, MPH [address] [facility] 980 [place] [phone] [email or web address] documented as of this encounter [...] documented as of this encounter Care Teams Repossessor Relationship Specialty Start Date End Date Parvez Cortez MD PCP - General 08/04/17 4 Parvez Cortez MD 238 [place] [address] PCP - General Family Medicine 06/01/24 Fern Blackburn MD [address] [place] [address] Dr Conklin [address] [place] [address] Gastroenterology 07/17/25 documented as of this encounter Additional Source Comments The information contained in this document represents components of the legal health record. It is not the complete legal health record.[facility]
--- OUTSIDE RECORDS SUMMARY | 2025-07-24 10:28 | XMS_ITS | Encounter Summary ---
Author Organization [facility] Address [address] [place] [address] Phone Care Team Providers Care Golf Cart Maker Name Role Phone Parvez Cortez MD Primary Care Prov ider Parvez Cortez MD Primary Care Prov ider Fern Blackburn MD Unavailable [phone] Encounter Details Date Type Department Care Team (Late st Contact Info) Description 10/16/2021 Ancillary Orders [facility],Outside Imaging 30 [place] [address] System, Provider Not In, PhD Partners [address] [address] Social History Tobacco Use Types Packs/Day Years [...] Info) Description 09/28/2025 9:00 AM EST Telemedicine [facility] [place] [facility] 165 [facility] 9th [place] [address] Henrique Mar MBBS, MPH [address] [facility] 980 [place] [phone] [email or web address] documented as of this encounter Results [...] documented as of this encounter Care Teams Golf Cart Maker Relationship Specialty Start Date End Date Parvez Cortez MD PCP - General 08/04/17 4 Parvez Cortez MD 238 [place] [address] PCP - General Family Medicine 06/01/24 Fern Blackburn MD [address] [place] [address] Dr Conklin 3 [place] [address] Gastroenterology 07/17/25 documented as of this encounter Additional Source Comments The information contained in this document represents components of the legal health record. It is not the complete legal health record.[facility]
--- OUTSIDE RECORDS SUMMARY | 2025-07-24 10:28 | XMS_ITS | Encounter Summary ---
Author Organization [facility] Address [address] [place] [address] Phone Care Team Providers Care Photographic Editor Name Role Phone Parvez Cortez MD Primary Care Prov ider Parvez Cortez MD Primary Care Prov ider Fern Blackburn MD Unavailable [phone] Encounter Details Date Type Department Care Team (Late st Contact Info) Description 10/15/2021 Procedure Pass [facility] - [address] [place] [address] Social History Tobacco Use Types Packs/Day Years [...] Info) Description 09/28/2025 9:00 AM EST Telemedicine [facility] [place] [facility] 165 [facility] 9th [place] [address] Henrique Mar MBBS, MPH 55 [facility] 980 [place] [phone] [email or web address] documented as of this encounter Visit Diagnoses Not on filedocumented in this encounter Additional Health Concerns Infection Onset Date Last Indicated Resolved Time CDiff-Risk 06/01/2024 06/01/2024 06/01/2024 10:3 6 PM EDT documented as of this encounter Care Teams Photographic Editor Relationship Specialty Start Date End Date Parvez Cortez MD PCP - General 08/04/17 4 Parvez Cortez MD [address] [place] [address] PCP - General Family Medicine 06/01/24 Fern Blackburn MD [address] [place] [address] Dr Conklin [address] [place] [address] Gastroenterology 07/17/25 documented as of this encounter Additional Source Comments The information contained in this document represents components of the legal health record. It is not the complete legal health record.[facility]
--- OUTSIDE RECORDS SUMMARY | 2025-07-24 10:28 | XMS_ITS | Encounter Summary ---
Author Organization [facility] Address [address] [place] [address] Phone Care Team Providers Care Account Classification Clerk Name Role Phone Parvez Cortez MD Primary Care Prov ider Parvez Cortez MD Primary Care Prov ider Fern Blackburn MD Unavailable [phone] Encounter Details Date Type Department Care Team (Late st Contact Info) Description 10/16/2021 Ancillary Orders [facility],Outside Imaging 30 [place] [address] System, Provider Not In, PhD Partners [address] [address] Social History Tobacco Use Types Packs/Day Years [...] Info) Description 09/28/2025 9:00 AM EST Telemedicine [facility] 165 [facility] 9th [place] [address] Henrique Mar MBBS, MPH [address] [facility] 980 [place] [phone] [email or web address] documented as of this encounter [...] documented as of this encounter Care Teams Account Classification Clerk Relationship Specialty Start Date End Date Parvez Cortez MD PCP - General 08/04/17 4 Parvez Cortez MD 238 [place] [address] PCP - General Family Medicine 06/01/24 Fern Blackburn MD [address] [place] [address] Dr Conklin [address] [place] [address] Gastroenterology 07/17/25 documented as of this encounter Additional Source Comments The information contained in this document represents components of the legal health record. It is not the complete legal health record.[facility]
--- OUTSIDE RECORDS SUMMARY | 2025-07-24 10:29 | XMS_ITS | Clinical Summary ---
Author Organization [facility] Address [address] [place] [address] Phone Care Team Providers Care Soil Specialist Name Role Phone Parvez Cortez MD Primary Care Prov ider Fern Blackburn MD Unavailable [phone] Allergies Active Allergy Reactions Criticality Noted Date [...] 2 (two) times a day. 4 Active multivitamin with mwgclzdw-xasl-x olic acid (ONE-A-DAY WOMEN'S COMPLETE) 18 mg iron- 400 mcg Tab per tablet Take 1 tablet by mouth daily. 90 tablet 3 5 Active apixaban (ELIQUIS) 5 mg tablet Take 1 tablet (5 mg total) by mouth 2 (two) times a day. 60 tablet 2 5 07/17/20 25 Discontinu ed(No longer taking) Active Problems Problem Noted Date Diagnosed Date [...] training, and she is referred to the [facility]. Discussed that long COVID is an evolving [...] Encounters Date Type Department Care Team Description 07/17/2025 2:00 PM EDT Telemedicine [facility] [address] [address] Gabriela Franco PA-C Crohn's disease with other complication, unspecified gastrointestinal tract location (Primary Dx); Diarrhea, unspecified type; Underweight 05/11/2025 10:00 AM EDT Telemedicine [facility] [address] [address] Henrique Roberto MBBS, MPH Malnutrition, unspecified type [...] Info) Description 09/28/2025 9:00 AM EST Telemedicine [facility] 165 [facility] 9th [place] [address] Henrique Mar MBBS, MPH [address] [facility] [address]80 [place] [phone] [email or web address] Health Maintenance Due Date Last Done Comments LIPID PANEL 1951 HEPATITIS C SCREENING 1969 ZOSTER VACCINES (1 of 2) 1970 COLOGUARD 1996 COLONOSCOPY 1996 COLORECTAL CANCER SCREENING 1996 FIT TEST 1996 FOBT 1996 SIGMOIDOSCOPY 1996 VIRTUAL COLONOSCOPY 1996 RSV VACCINE (1 - Risk 50-74 years 1-dose series) 2001 OSTEOPOROSIS SCREENING INITIAL (ONE-TIME) 2016 PNEUMOCOCCAL VACCINES (50+ years) (2 of 2 - PPSV23) 10/07/2018 08/12/2018 MAMMOGRAM 10/21/2023 10/21/2021, 07/19, 12/13/2019, Additional history exists DEPRESSION SCREENING 08/13/2024 08/13/2023, 08/13/20 23 INFLUENZA VACCINE (#1) 2025 , 09/08/2019, 08/12/2018 COVID-19 VACCINE ( season) 2025 08/13/2021, 02/06/2021, 01/15/2021 Adult Td,Tdap Booster 07/28/2032 07/28/2022, 010 SMOKING [...] Priority Date/Time Associated Diagnosis Comments BI MAMMOGRAM DIAGNOSTIC WITH TOMOSYNTHESIS WITH CAD (BILATERAL) Routine 10/21/2021 1:25 PM EST Unspecified lump in the right breast, unspecified quadrant from Last 3 Months or Most Recently Relevant to Health Maintenance Results * BI MAMMOGRAM DIAGNOSTIC WITH TOMOSYNTHESIS WITH [...] at the site of pain. Tiana Gil CATALOGUE AND SPECIAL PRODUCTS MANAGER IMG MG EXAMS Susan l Result from Last 3 Months or Most Recently Relevant to Health Maintenance [place] [address] [place] [address] EXPLORER POS [facility] EXPLORER POS [employer] POS [employer] POS [employer] [employer] POS [employer] [employer] EX[employer] POS Advance Directives For more information, please contact: [phone] (9AM - 5PM [facility], Thursday-Thursday) * Full Code (Latest Code Status on File) Date Activated Date Inactivated Comments 11/11/2024 4:10 AM Question Answer Comments Code Status Confirmed With: Patient Care Teams Soil Specialist Relationship Specialty Start Date End Date Parvez Cortez MD [address] [place] [address] PCP - General Family Medicine 06/01/24 Fern Blackburn MD [address] [place] [address] [place] [address] Gastroenterology 07/17/25 Additional Source Comments The information contained in this document represents components of the legal health record. It is not the complete legal health record.[facility]
[2025-07-24 10:39] LABS: Creatinine, mg/dL 97.36
[2025-07-24 10:50] LABS: Total Volume 24 Hour Urine 725 mL
[2025-07-27 17:03] LABS: Calcium/Creatinine Ratio 156 mg/g creat (30-275); Creatinine 24Hr Urine 0.73 g/24 h (0.50-2.15)
== END 2025-07-23 14:01 | disposition home or self-care (01) ==
LOC: HO.LNP 14:00
PROVIDERS: Visit Provider Internal Medicine Endocrinology, Diabetes & Metabolism
DX: M81.0 Age-related osteoporosis without current pathological fracture (principal)
CPT/HCPCS: 82340; 82570

== ENCOUNTER 2025-08-28 14:35 | Outpatient (AMB) | payer OTHER, SELFPAY ==
--- OUTSIDE RECORDS SUMMARY | 2012-08-24 | XMS_ITS | Encounter Summary ---
Author Organization [facility] Address [address] [place] [address] Phone Care Team Providers Care Cutting Torch Operator Name Role Phone Unavailable Primary Care Provider Unavailabl e Encounter Details Date Type Department Care Team (Late st Contact Info) Description 08/24/2012 Hospital Encounter [facility],Outside Imaging 30 [place] [address] System, Provider Not In, PhD [address] [address] Social History Tobacco Use Types Packs/Day Years Used Date Smoking Tobacco: Never Smokeless Tobacco: Never Home Health Assessment: Transportation Answer Date Recorded Lack of Transportation (Medical) No 12/01/2024 Lack of Transportation (Non-Medical) No 12/01/2024 Patient Unable or Declines to Respond No 12/01/2024 Education Answer Date Recorded Are you interested in more education? Not on tara e 02/21/2023 Are you concerned about learning? Not on file 02/21/2023 No 02/21/2023 No 02/21/2023 Digital Access Answer Date Recorded No 03/15/2023 No 03/15/2023 Reliable internet access at home? Not on file 03/15/2023 Device with a working camera? Not on file Intimate Partner Violence Answer Date R ecorded Are you denied basic needs s uch as food, clothing, or medical care? Deferred 11/10/2024 In the past 12 months have y ou been in a relationship with a person who hurts, threatens, or tries to control you? Deferred 11/10/2024 Are you denied basic needs s uch as food, clothing, or medical care? Deferred 11/10/2024 In the past 12 months have y ou been in a relationship with a person who hurts, threatens, or tries to control you? Deferred 11/10/2024 Comments No Sex and Gender Information Value Date Recorded Sex Assigned at Not on file Legal Sex Female 5:39 PM EST Gender Identity Not on file Sexual Orientation Not on file documented as of this encounter Functional Status * Calculated C-SSRS Risk Score (Lifetime/Recent) Answer Date of Assessment Author No Risk Indicated 11/11/2024 9:38 PM Sylvia Galan RN * [place] Suicide Severity Rating Scale (Screener/Recent Self-Report) Question Answer Date of Assessment Author 1. Wish to be (Past 1 Month) No 11/11/2024 9:38 PM Sylvia Galan RN 2. Non-Specific Active Suicidal Thoughts (Past 1 Month) No 11/11/2024 9:38 PM Sylvia Galan RN 6. Suicidal Behavior (Lifetime) No 11/11/2024 9:38 PM Sylvia Galan RN documented as of this encounter Plan of Treatment Upcoming Encounters Date Type Department Care Team (Late st Contact Info) Description 09/28/2025 9:00 AM EST Telemedicine [facility] [address] [facility] 9[place] [address] Henrique Mar MBBS, MPH [address] [place] [phone] [email or web address] documented as of this encounter Procedures Procedure Name Priority Date/Time Associated Diagnosis Comments BI MAMMOGRAM OUTSIDE (NO INTERPRETATION) Routine 08/24/2012 12:00 AM EST documented in this encounter Results * Mammogram Outside (No Interpretation) (08/24/2012 12:00 AM EST) Narrative SYSTEMGENERATED, DOCUMENTATION - 10/16/2021 11:24 AM EST This study is for PACS storage only and not for interpretation. us Provider Not In System PhD IMG OUTSIDE IMAGING W /OUT INTERPRETATION Final Result documented in this encounter Visit Diagnoses Not on filedocumented in this encounter Additional Health Concerns Infection Onset Date Last Indicated Resolved Time CoV-Risk 12/07/2020 12/07/2020 12/17/2020 1:23 AM EST CDiff-Risk 06/01/2024 06/01/2024 06/01/2024 10:3 6 PM EDT documented as of this encounter Additional Source Comments The information contained in this document represents components of the legal health record. It is not the complete legal health record.[facility]
--- OUTSIDE RECORDS SUMMARY | 2013-10-13 | XMS_ITS | Encounter Summary ---
Author Organization [facility] Address [address] [place] [address] Phone Care Team Providers Care Activities Attendant Name Role Phone Unavailable Primary Care Provider Unavailabl e Encounter Details Date Type Department Care Team (Late st Contact Info) Description 10/13/2013 Hospital Encounter [facility],Outside Imaging 30 [place] [address] System, Provider Not In, PhD Partners [address] [address] Social History Tobacco Use Types Packs/Day Years [...] 11/11/2024 9:38 PM Sylvia Galan RN * [place] Suicide Severity Rating Scale (Screener/Recent Self-Report) Question [...] Info) Description 09/28/2025 9:00 AM EST Telemedicine [facility] [place] [facility] [address] [facility] 9[place] [address] Henrique Mar MBBS, MPH [address] [place] [phone] [email or web address] documented as of this encounter Procedures Procedure [...]
--- OUTSIDE RECORDS SUMMARY | 2013-10-13 00:05 | XMS_ITS | Encounter Summary ---
Author Organization [facility] Address [address] [place] [address] Phone Care Team Providers Care Office Executive Name Role Phone Unavailable Primary Care Provider Unavailabl e Encounter Details Date Type Department Care Team (Late st Contact Info) Description 10/13/2013 12:05 AM EST Hospital Encounter [facility],Outside Imaging 30 [place] [address] System, Provider Not In, PhD Partners [address] [address] Social History Tobacco Use Types Packs/Day Years [...] 11/11/2024 9:38 PM Sylvia Galan RN * [place] Suicide Severity Rating Scale (Screener/Recent Self-Report) Question [...] Info) Description 09/28/2025 9:00 AM EST Telemedicine [facility] 165 [facility] 9th [place] [address] Henrique Mar MBBS, MPH [address] [place] [phone] [email or web address] documented as of this encounter Procedures Procedure Name Priority Date/Time Associated Diagnosis Comments BI US BREAST OUTSIDE (NO INTERPRETATION) Routine 10/13/2013 12:05 AM EST documented in this encounter Results * US Breast Outside (No Interpretation) (10/13/2013 12:05 AM EST) Narrative SYSTEMGENERATED, DOCUMENTATION - 10/16/2021 11:51 AM EST This study is for PACS [...] It is not the complete legal health record.[facility]
[2025-08-28 14:40] VITALS: BP 140/76; PULSE 75; O2SAT 100; BMI 21.4
--- NOTE | 2025-08-28 14:40 | A.OFFVIS_ITS ---
Vital Signs 08/28/25 14:40 Height 5 ft 2 in Weight 116 lb 13.52 oz BMI 21.4 BP 140/76 H Blood Pressure Location Rt brachial Position Sitting Pulse 75 Pulse Source Pulse Oximeter Pulse Oximetry (%) 100 Oxygen Delivery Method Room Air Intake Visit Reasons: Osteoporosis Intake Note: Patient present today for Osteoporosis follow up. Iron Plastic Bullet Maker Required: No Accompanied by: Other Relationship Allergies levofloxacin (From LEVAQUIN) Allergy (Severe, Verified 08/28/25 14:42) Severe itching acetaminophen (From TYLENOL) Allergy (Intermediate, Verified 08/28/25 14:42) Itching epinephrine (EPINEPHRINE) Allergy (Intermediate, Verified 08/28/25 14:42) Tachycardia Penicillins (PENICILLINS) Allergy (Intermediate, Verified 08/28/25 14:42) Itching and hives diclofenac (DICLOFENAC) Allergy (Unknown, Verified 08/28/25 14:42) Hives meperidine (Demerol) Allergy (Unknown, Verified 08/28/25 14:42) Rash penicillin V Allergy (Unknown, Verified 08/28/25 14:42) Rash procaine (From NOVOCAIN) Allergy (Unknown, Verified 08/28/25 14:42) Unknown feathers Allergy (Verified 08/28/25 14:42) Itching wool Allergy (Verified 08/28/25 14:42) Itching Sulfa (Sulfonamide Antibiotics) (SULFA (SULFONAMIDE ANTIBIOTICS)) Adverse Reaction (Intermediate, Verified 08/28/25 14:42) Nausea doxycycline Adverse Reaction (Verified 08/28/25 14:42) Stomach Upset HPI Comments Details: 74 YO Female with PMHx Crohn's Dx and chronic diarrhea is seen in consultation at the request of PCP for Osteoporosis. First diagnosed in recently . Not Received treatment in the past History of pathologic fracture fell backwards fracturing R ankle and tibia or ONJ. Has several servings of dietary calcium per day in the form of cheese, cereal , ice cream . Not Takes Calcium supplement mg daily in divided doses. Takes ? IU of Vitamin D daily. Takes PPI, +anticoagulant Eliquis , -antiepileptic + glucocorticoid medication. Not Does weight bearing exercise Fracture history: No Height loss: Yes BLUE LEATHER SETTER history: Menarche at age 11- Menoapause at age 60 - nl menses Denies history of Kidney stones: Denies family history of Osteoporosis or hip fracture. UTD on dental cleanings and sees dentist every 6 months. No planned upcoming dental work or extractions. No tabacco or heavy ETOH use DXA dated 11/02/24 :FINDINGS: The bone mineral density of the lumbar spine is 0.781 with a T-score of -3.3, and a Z-score of -0.9. This represents a BMD change of -21.7% compared to the prior exam. This is statistically significant. The bone mineral density of the left total hip is 0.681 with a T-score of -2.6, and a Z-score of -0.4. This represents BMD change of -18.9% compared to the prior exam. This is statistically significant. The bone mineral density of the left femoral neck is 0.644 with a T-score of -2.8, and a Z-score of -0.5. This represents BMD change of -13.3% compared to the prior exam. MM/XR DEXA axial skeleton IMPRESSION: Based on bone mineral density, and according to World Health Organization (WHO) criteria, the diagnosis is consistent with osteoporosis. Labs: Secondary workup negative except for low 24 hour urinary calcium suggesting poor calcium intake Has 60% carotid artery stenosis [facility] Medical History Hypertension Mitral valve prolapse Lupus GERD (gastroesophageal reflux disease) COVID-19 long hauler Hypoglycemia Asthma Hyperlipidemia Fibromyalgia Surgical History History of esophagogastroduodenoscopy (EGD) Hx of colonoscopy H/O dilation and curettage History of breast surgery Leg fracture, right Family History Paternal Aunt Breast CA Paternal Aunt Breast CA Social History Household Members: Spouse Household Members Other:: 2 Housing: House Do you presently have visiting nurse or other home services: No Alcohol intake: never Comment: pt. refusing bed alarm . Patient Tobacco Use Status: Never used Tobacco e-Cigarette/Vaping Use: Never Used Second Hand Smoke Exposure: No Advance Directives Date on File: 10/01/24 service: No Gender identity: Female Female Reproductive History Menstrual Age of Menarche: 12 Physical Exam Vital Signs: Last Vital Signs Pulse 75 08/28/25 14:40 BP 140/76 H 08/28/25 14:40 Pulse Ox 100 08/28/25 14:40 Oxygen Delivery Method Room Air 08/28/25 14:40 BMI result Body Mass Index 21.4 Assessment & Plan Assessment & Plan (1) Osteoporosis: Code(s): M81.0 - Age-related osteoporosis without current pathological fracture Category: Medical Plan: This is a 74-year-old white female with a history of chronic diarrhea and Crohn's disease recently found to have moderate to severe osteoporosis. Secondary workup was negative except for low 24 hour urinary calcium suggesting poor calcium intake Plan is to talk about the different various anabolic agents with the patient including the use of Evenity, Tymlos or Forteo. Although the patient has carotid stenosis, is not an absolute contraindication to using the Evenity. Patient decided to go with the Evenity. Placed script for Evenity and went over side effects of Evenity including but not limited to injection site reactions. If Evenity is not approved then, we will go with Tymlos or Forteo Medications: New romosozumab-aqqg (Evenity) 210 mg (2.34 mL) subcut QMONTH 2.34 mL 11RF Coding Level of Care Code Est Pt Level 3 (59019) Diagnoses Osteoporosis M81.0
--- OUTSIDE RECORDS SUMMARY | 2025-08-28 16:55 | XMS_ITS | Encounter Summary ---
Author Organization [facility] Address [address] [place] [address] Phone Care Team Providers Care Air Filler Name Role Phone Parvez Cortez MD Primary Care Prov ider Parvez Cortez MD Primary Care Prov ider Fern Blackburn MD Unavailable [phone] Encounter Details Date Type Department Care Team (Late st Contact Info) Description 12/07/2020 Transcribe Orders Virtual Department [address] [place] [address] Kami Mena PA [address] [place] [address] Muscle ache (Primary Dx); Stuffy and runny [...] Info) Description 09/28/2025 9:00 AM EST Telemedicine [facility] 165 [facility] 9[place] [address] Henrique Mar, ADA, MPH [address] [facility] [address] [place] [phone] [email or web address] documented as of this encounter Visit Diagnoses Diagnosis Muscle ache- Primary Unspecified myalgia and myositis Stuffy and runny nose Other diseases of nasal cavity and sinuses documented in this encounter Additional Health Concerns Infection Onset Date Last Indicated Resolved Time CoV-Risk 12/07/2020 12/07/2020 12/17/2020 1:23 AM EST CDiff-Risk 06/01/2024 06/01/2024 06/01/2024 10:3 6 PM EDT documented as of this encounter Care Teams Air Filler Relationship Specialty Start Date End Date Parvez Cortez MD PCP - General 08/04/17 4 Parvez Cortez MD [address] [place] [address] PCP - General Family Medicine 06/01/24 Fern Blackburn MD [address] [place] [address] Dr Conklin [address] [place] [address] Gastroenterology 07/17/25 documented as of this encounter Additional Source Comments The information contained in this document represents components of the legal health record. It is not the complete legal health record.[facility]
--- OUTSIDE RECORDS SUMMARY | 2025-08-28 16:55 | XMS_ITS | Encounter Summary ---
Author Organization [facility] Address [address] [place] [address] Phone Care Team Providers Care Machine Assistant Name Role Phone Parvez Cortez MD Primary Care Prov ider Parvez Cortez MD Primary Care Prov ider Fern Blackburn MD Unavailable [phone] Encounter Details Date Type Department Care Team (Late Contact Info) Description 09/16/2022 Transcribe Orders Virtual Department [address] [place] [address] Parvez Cortez MD [address] [place] [address] [email or web address] Essential (primary) hypertension (Primary Dx) [...] [facility] 165 [facility] 9th [place] [address] Henrique Mar MBBS, MPH 55 [facility] [address] [place] [phone] [email or web address] documented as of this encounter Visit Diagnoses Diagnosis Essential (primary) hypertension- Primary Unspecified essential hypertension documented in this encounter Additional Health Concerns Infection Onset Date Last Indicated Resolved Time CDiff-Risk 06/01/2024 06/01/2024 06/01/2024 10:3 6 PM EDT documented as of this encounter Care Teams Machine Assistant Relationship Specialty Start Date End Date Parvez Cortez MD PCP - General 08/04/17 4 Parvez Cortez MD [address] [place] [address] PCP - General Family Medicine 06/01/24 Fern Blackburn MD [address] [place] [address] [place] [address] Gastroenterology 07/17/25 documented as of this encounter Additional Source Comments The information contained in this document represents components of the legal health record. It is not the complete legal health record.[facility]
--- OUTSIDE RECORDS SUMMARY | 2025-08-28 16:55 | XMS_ITS | Encounter Summary ---
Author Organization [facility] Address [address] [place] [address] Phone Care Team Providers Care Implementation Services Analyst Name Role Phone Parvez Cortez MD Primary Care Prov ider Parvez Cortez MD Primary Care Prov ider Fern Blackburn MD Unavailable [phone] Encounter Details Date Type Department Care Team (Late st Contact Info) Description 10/16/2021 Ancillary Orders [facility],Outside Imaging [address] [place] [address] System, Provider Not In, [facility] [address] [address] Social History Tobacco Use Types Packs/Day Years [...] Info) Description 09/28/2025 9:00 AM EST Telemedicine [facility] 165 [facility] 9th [place] [address] Henrique Mar MBBS, MPH [address] [facility] 980 [place] [phone] [email or web address] documented as of this encounter Results * [...] documented as of this encounter Care Teams Implementation Services Analyst Relationship Specialty Start Date End Date Parvez Cortez MD PCP - General 08/04/17 4 Parvez Cortez MD 238 [place] [address] PCP - General Family Medicine 06/01/24 Fern Blackburn MD [address] [place] [address] Dr Conklin 3 [place] [address] Gastroenterology 07/17/25 documented as of this encounter Additional Source Comments The information contained in this document represents components of the legal health record. It is not the complete legal health record.[facility]
--- OUTSIDE RECORDS SUMMARY | 2025-08-28 16:55 | XMS_ITS | Encounter Summary ---
Author Organization [facility] Address [address] [place] [address] Phone Care Team Providers Care Practice Nurse Name Role Phone Parvez Cortez MD Primary Care Prov ider Parvez Cortez MD Primary Care Prov ider Fern Blackburn MD Unavailable [phone] Encounter Details Date Type Department Care Team (Late st Contact Info) Description 10/15/2021 Procedure Pass [facility] - [address] [place] [address] Social History Tobacco Use Types Packs/Day Years [...] Info) Description 09/28/2025 9:00 AM EST Telemedicine [facility] 165 [facility] 9th [place] [address] Henrique Mar MBBS, MPH 55 [facility] 980 [place] [phone] [email or web address] documented as of this encounter Visit Diagnoses Not on filedocumented in this encounter Additional Health Concerns Infection Onset Date Last Indicated Resolved Time CDiff-Risk 06/01/2024 06/01/2024 06/01/2024 10:3 6 PM EDT documented as of this encounter Care Teams Practice Nurse Relationship Specialty Start Date End Date Parvez Cortez MD PCP - General 08/04/17 4 Parvez Cortez MD [address] [place] [address] PCP - General Family Medicine 06/01/24 Fern Blackburn MD [address] [place] [address] Dr Conk[address] [place] [address] Gastroenterology 07/17/25 documented as of this encounter Additional Source Comments The information contained in this document represents components of the legal health record. It is not the complete legal health record.[facility]
--- OUTSIDE RECORDS SUMMARY | 2025-08-28 16:56 | XMS_ITS | Encounter Summary ---
Author Organization [facility] Address [address] [place] [address] Phone Care Team Providers Care Service Dog Trainer Name Role Phone Parvez Cortez MD Primary Care Prov ider Parvez Cortez MD Primary Care Prov ider Fern Blackburn MD Unavailable [phone] Encounter Details Date Type Department Care Team (Late st Contact Info) Description 10/15/2021 Procedure Pass [facility] - [address] [place] [address] Social History Tobacco Use Types Packs/Day Years [...] Description 09/28/2025 9:00 AM EST Telemedicine [facility] [address] 9th [place] [address] Henrique Mar MBBS, MPH 55 [facility] 9[address] [place] [phone] [email or web address] documented as of this encounter Visit Diagnoses Not on filedocumented in this encounter Additional Health Concerns Infection Onset Date Last Indicated Resolved Time CDiff-Risk 06/01/2024 06/01/2024 06/01/2024 10:3 6 PM EDT documented as of this encounter Care Teams Service Dog Trainer Relationship Specialty Start Date End Date Parvez Cortez MD PCP - General 08/04/17 4 Parvez Cortez MD [address] [place] [address] PCP - General Family Medicine 06/01/24 Fern Blackburn MD [address] [place] [address] Dr Conklin [address] [place] [address] Gastroenterology 07/17/25 documented as of this encounter Additional Source Comments The information contained in this document represents components of the legal health record. It is not the complete legal health record.[facility]
--- OUTSIDE RECORDS SUMMARY | 2025-08-28 16:56 | XMS_ITS | Encounter Summary ---
Author Organization [facility] Address [address] [place] [address] Phone Care Team Providers Care Psychiatric Social Worker Supervisor Name Role Phone Parvez Cortez MD Primary Care Prov ider Parvez Cortez MD Primary Care Prov ider Fern Blackburn MD Unavailable [phone] Encounter Details Date Type Department Care Team (Late st Contact Info) Description 10/16/2021 Ancillary Orders [facility],Outside Imaging [address] [place] [address] System, Provider Not In, [facility] [address] [address] Social History Tobacco Use Types Packs/Day Years [...] Description 09/28/2025 9:00 AM EST Telemedicine [facility] 165 [facility] 9th [place] [address] Henrique Mar MBBS, MPH [address] [facility] [address]80 [place] [phone] [email or web address] documented as of this encounter [...] documented as of this encounter Care Teams Psychiatric Social Worker Supervisor Relationship Specialty Start Date End Date Parvez Cortez MD PCP - General 08/04/17 4 Parvez Cortez MD [address] [place] [address] PCP - General Family Medicine 06/01/24 Fern Blackburn MD [address] [place] [address] Dr Conklin [address] [place] [address] Gastroenterology 07/17/25 documented as of this encounter Additional Source Comments The information contained in this document represents components of the legal health record. It is not the complete legal health record.[facility]
--- OUTSIDE RECORDS SUMMARY | 2025-08-28 16:56 | XMS_ITS | Encounter Summary ---
Author Organization [facility] Address [address] [place] [address] Phone Care Team Providers Care Chief Nuclear Medicine Technologist Name Role Phone Parvez Cortez MD Primary Care Prov ider Parvez Cortez MD Primary Care Prov ider Fern Blackburn MD Unavailable [phone] Encounter Details Date Type Department Care Team (Late st Contact Info) Description 10/16/2021 Ancillary Orders [facility],Outside Imaging [address] [place] [address] System, Provider Not In, [facility] [address] [address] Social History Tobacco Use Types Packs/Day Years [...] Info) Description 09/28/2025 9:00 AM EST Telemedicine [facility] 165 [facility] 9th [place] [address] Henrique Mar MBBS, MPH [address] [facility] 9[address] [place] [phone] [email or web address] documented as of this encounter Results * [...] documented as of this encounter Care Teams Chief Nuclear Medicine Technologist Relationship Specialty Start Date End Date Parvez Cortez MD PCP - General 08/04/17 4 Parvez Cortez MD [address] [place] [address] PCP - General Family Medicine 06/01/24 Fern Blackburn MD [address] [place] [address] Dr [address]klin [address] [place] [address] Gastroenterology 07/17/25 documented as of this encounter Additional Source Comments The information contained in this document represents components of the legal health record. It is not the complete legal health record.[facility]
--- OUTSIDE RECORDS SUMMARY | 2025-08-28 16:56 | XMS_ITS | Encounter Summary ---
Author Organization [facility] Address [address] [place] [address] Phone Care Team Providers Care Flotation Operator Name Role Phone Parvez Cortez MD Primary Care Prov ider Parvez Cortez MD Primary Care Prov ider Fern Blackburn MD Unavailable [phone] Encounter Details Date Type Department Care Team (Late st Contact Info) Description 10/16/2021 Ancillary Orders [facility],Outside Imaging [address] [place] [address] System, Provider Not In, [facility] [address] [address] Social History Tobacco Use Types Packs/Day Years [...] Info) Description 09/28/2025 9:00 AM EST Telemedicine [facility] 165 [facility] 9th [place] [address] Henrique Mar MBBS, MPH [address] [facility] 980 [place] [phone] [email or web address] documented as of this encounter [...] documented as of this encounter Care Teams Flotation Operator Relationship Specialty Start Date End Date Parvez Cortez MD PCP - General 08/04/17 4 Parvez Cortez MD [address] [place] [address] PCP - General Family Medicine 06/01/24 Fern Blackburn MD [address] [place] [address] Dr [address] [place] [address] Gastroenterology 07/17/25 documented as of this encounter Additional Source Comments The information contained in this document represents components of the legal health record. It is not the complete legal health record.[facility]
--- OUTSIDE RECORDS SUMMARY | 2025-08-28 16:56 | XMS_ITS | Encounter Summary ---
Author Organization [facility] Address [address] [place] [address] Phone Care Team Providers Care Nut Culler Name Role Phone Parvez Cortez MD Primary Care Prov ider Parvez Cortez MD Primary Care Prov ider Fern Blackburn MD Unavailable [phone] Encounter Details Date Type Department Care Team (Late st Contact Info) Description 10/16/2021 Ancillary Orders [facility],Outside Imaging [address] [place] [address] System, Provider Not In, [facility] Partners [address] [address] Social History Tobacco Use Types Packs/Day Years [...] 09/28/2025 9:00 AM EST Telemedicine [facility] [address] [facility] 9th [place] [address] Henrique Mar MBBS, MPH [address] [facility] [address] [place] [phone] [email or web address] documented as of this encounter Results [...] documented as of this encounter Care Teams Nut Culler Relationship Specialty Start Date End Date Parvez Cortez MD PCP - General 08/04/17 4 Parvez Cortez MD [address] [place] [address] PCP - General Family Medicine 06/01/24 Fern Blackburn MD [address] [place] [address] Dr Conklin [address] [place] [address] Gastroenterology 07/17/25 documented as of this encounter Additional Source Comments The information contained in this document represents components of the legal health record. It is not the complete legal health record.[facility]
--- OUTSIDE RECORDS SUMMARY | 2025-08-28 16:56 | XMS_ITS | Clinical Summary ---
Author Organization [facility] Address [address] [place] [address] Phone Care Team Providers Care Home Care Scheduler Name Role Phone Parvez Cortez MD Primary Care Prov ider Fern Blackburn MD Unavailable [phone] Allergies Active Allergy Reactions Criticality Noted Date Comments Acetaminophen 01/18/2024 Restless leg Atropine-Demerol High 11/08/2024 LOC Diphenhydramine Hcl 04/23/2021 Restless leg, agitation Clindamycin Hcl 01/18/2024 Codeine 01/18/2024 Cyclizine 11/08/2024 Levofloxacin 01/18/2024 Lidocaine-Epinephrine (Pf) Meperidine 01/18/2024 Morphine 01/18/2024 Penicillins 04/23/2021 From childhood - makes her itchy Procaine 01/18/2024 Sulfa (Sulfonamide Antibiotics) 04/23/2021 Mom was allergic and thinks she also reacted Medications montelukast (SINGULAIR) 10 mg tablet Take 10 mg by mouth daily. 04/01/2021 Active carisoprodol (SOMA) 350 MG tablet Take 350 mg by mouth daily. 03/14/2021 Active RESTASIS 0.05 % suspension Place 1 drop into each eye every 12 (twelve) hours. 12/15/2023 Active albuterol 90 mcg/actuation inhaler 1 puff every 4 (four) hours as needed. 10/26/2023 Active budesonide (ENTOCORT EC) 3 mg 24 hr capsule Take 9 mg by mouth every morning. 10/05/2024 Active celecoxib (CELEBREX) 100 MG capsule Take 100 mg by mouth daily. 10/13/2024 Active dicyclomine (BENTYL) 10 MG capsule Take 10 mg by mouth 4 (four) times a day before meals and nightly. 10/13/2024 Active folic acid (FOLVITE) 1 MG tablet Take 1 mg by mouth daily. 10/11/2024 Active adalimumab-adaz (HYRIMOZ,CF, PEN) 80 mg/0.8 mL PnIj Inject 0.8 mL as directed every 14 (fourteen) days. 10/13/2024 Active melatonin 1 mg Tab Take 1 mg by mouth nightly at bedtime. take 1 @ 12:30am and 1 @ 1:30am 08/03/2012 Active methotrexate, PF, 12.5 mg/0.25 mL AtIn Inject 0.5 mL under the skin once a week. 10/24/2024 Active promethazine (PHENERGAN) 25 MG tablet Take 25 mg by mouth every 8 (eight) hours as needed for nausea. 10/20/2024 Active budesonide (PULMICORT FLEXHALER) 180 mcg/actuation inhaler Inhale 1 puff into the lungs 2 (two) times a day. 06/10/2024 Active multivitamin with vreaqglr-sxas-i olic acid (ONE-A-DAY WOMEN'S COMPLETE) 18 mg iron- 400 mcg Tab per tablet Take 1 tablet by mouth daily. 90 tablet 3 11/14/2024 Active Active Problems Problem Noted Date Diagnosed [...] training, and she is referred to the [facility] [place] at [facility]. Discussed that long COVID is an evolving [...] Team Description 07/17/2025 2:00 PM EDT Telemedicine [facility] [address] [facility] 9th [place] [address] Gabriela Franco PA-C Crohn's disease with other complication, unspecified gastrointestinal tract location (Primary Dx); Diarrhea, unspecified type; Underweight from Last 3 Months Immunizations Immunization Administration [...] [facility] [address] [facility] [address] [address] Henrique Mar MBBS, MPH [address] [place] [phone] [email or web address] Health Maintenance Due Date Last Done Comments LIPID PANEL 1951 HEPATITIS C SCREENING 1969 ZOSTER VACCINES (1 of 2) 1970 COLOGUARD 1996 COLONOSCOPY 1996 COLORECTAL CANCER SCREENING 1996 FIT TEST 1996 FOBT 1996 SIGMOIDOSCOPY 1996 VIRTUAL COLONOSCOPY 1996 RSV VACCINE (1 - Risk 50-74 years 1-dose series) 2001 OSTEOPOROSIS SCREENING INITIAL (ONE-TIME) 2016 PNEUMOCOCCAL VACCINES (50+ years) (2 of 2 - PPSV23, PCV20, or PCV21) 10/07/2018 08/12/2018 MAMMOGRAM 10/21/2023 10/21/2021, 07/19, 12/13/2019, [...] on patient's age to complete this topic IPV VACCINES Aged Out No longer eligi ble [...] the site of pain. Tiana Gil NP [facility] Susan l Result from Last 3 Months or Most Recently Relevant to Health Maintenance Insurance [facility] [employer] POS [facility] POS [facility] [employer] POS [facility] EX[employer] [place] [address] [place] [address] EXPLORER POS Advance Directives For more information, please contact: [phone] (9AM - 5PM [facility], Thursday-Thursday) * Full Code (Latest Code Status on File) Date Activated Date Inactivated Comments 11/11/2024 4:10 AM Question Answer Comments Code Status Confirmed With: Patient Care Teams Home Care Scheduler Relationship Specialty Start Date End Date Parvez Cortez MD [address] [place] [address] [email or web address] PCP - General Family Medicine 06/01/24 Fern Blackburn MD [address] [place] [address] Dr Conklin [address] [place] [address] Gastroenterology 07/17/25 Additional Source Comments The information contained in this document represents components of the legal health record. It is not the complete legal health record.[facility]
--- OUTSIDE RECORDS SUMMARY | 2025-08-28 16:56 | XMS_ITS | Encounter Summary ---
Author Organization [facility] Address [address] [place] [address] Phone Care Team Providers Care Coke Still Cleaner Name Role Phone Parvez Cortez MD Primary Care Prov ider Parvez Cortez MD Primary Care Prov ider Fern Blackburn MD Unavailable [phone] Encounter Details Date Type Department Care Team (Late st Contact Info) Description 10/16/2021 Ancillary Orders [facility],Outside Imaging [address] [place] [address] System, Provider Not In, PhD [facility] [address] [address] Social History Tobacco Use Types Packs/Day Years [...] [facility] [address] [facility] 9th [place] [address] Henrique Mar MBBS, MPH [address] [facility] 980 [place] [phone] [email or web address] documented as of this encounter [...] documented as of this encounter Care Teams Coke Still Cleaner Relationship Specialty Start Date End Date Parvez Cortez MD PCP - General 08/04/17 4 Parvez Cortez MD [address] [place] [address] PCP - General Family Medicine 06/01/24 Fern Blackburn MD [address] [place] [address] Dr Conklin [address] [place] [address] Gastroenterology 07/17/25 documented as of this encounter Additional Source Comments The information contained in this document represents components of the legal health record. It is not the complete legal health record.[facility]
--- OUTSIDE RECORDS SUMMARY | 2025-08-28 16:56 | XMS_ITS | Encounter Summary ---
Author Organization [facility] Address [address] [place] [address] Phone Care Team Providers Care Marking Clerk Name Role Phone Parvez Cortez MD Primary Care Prov ider Parvez Cortez MD Primary Care Prov ider Fern Blackburn MD Unavailable [phone] Encounter Details Date Type Department Care Team (Late st Contact Info) Description 10/16/2021 Ancillary Orders [place] [facility],Outside Imaging [address] [place] [address] System, Provider Not In, [facility] [address] [address] Social History Tobacco Use Types Packs/Day Years [...] [facility] [address] [facility] 9th [place] [address] Henrique Mar MBBS, MPH [address] [facility] 980 [place] [phone] [email or web address] documented as of this encounter Results [...] documented as of this encounter Care Teams Marking Clerk Relationship Specialty Start Date End Date Parvez Cortez MD PCP - General 08/04/17 4 Parvez Cortez MD [address] [place] [address] PCP - General Family Medicine 06/01/24 Fern Blackburn MD [address] [place] [address] Dr Conklin [address] [place] [address] Gastroenterology 07/17/25 documented as of this encounter Additional Source Comments The information contained in this document represents components of the legal health record. It is not the complete legal health record.[facility]
== END 2025-08-28 15:16 | disposition home or self-care (01) ==
LOC: HO.ENCR 14:36
PROVIDERS: PCP Family Medicine; Visit Provider Internal Medicine Endocrinology, Diabetes & Metabolism
DX: M81.0 Age-related osteoporosis without current pathological fracture (principal)
CPT/HCPCS: 99213

== ENCOUNTER 2025-09-18 14:32 | Outpatient (AMB) | payer OTHER, SELFPAY ==
--- OUTSIDE RECORDS SUMMARY | 2012-08-24 | XMS_ITS | Encounter Summary ---
Author Organization [facility] Address [address] [place] [address] Phone Care Team Providers Care Member Services Representative Name Role Phone Unavailable Primary Care Provider Unavailabl e Encounter Details Date Type Department Care Team (Late st Contact Info) Description 08/24/2012 Hospital Encounter [facility],Outside Imaging 30 [place] [address] System, Provider Not In, PhD [address] [address] Social History Tobacco Use Types Packs/Day Years [...] 11/11/2024 9:38 PM Sylvia Galan RN * [place] Suicide Severity Rating Scale (Screener/Recent Self-Report) Question [...] Info) Description 09/28/2025 9:00 AM EST Telemedicine [facility] 165 [facility] [address] [address] Henrique Mar MBBS, MPH [address] [place] [phone] [email or web address] documented as of this encounter Procedures Procedure [...] It is not the complete legal health record.[facility]
--- OUTSIDE RECORDS SUMMARY | 2013-10-13 | XMS_ITS | Encounter Summary ---
Author Organization [facility] Address [address] [place] [address] Phone Care Team Providers Care Missileman Name Role Phone Unavailable Primary Care Provider Unavailabl e Encounter Details Date Type Department Care Team (Late st Contact Info) Description 10/13/2013 Hospital Encounter [facility],Outside Imaging 30 [place] [address] System, Provider Not In, PhD Partners [address] [address] Social History Tobacco Use Types Packs/Day Years [...] 11/11/2024 9:38 PM Sylvia Galan RN * [place] Suicide Severity Rating Scale (Screener/Recent Self-Report) Question [...] Info) Description 09/28/2025 9:00 AM EST Telemedicine [facility] [place] [address] [facility] 9[place] [address] Henrique Mar MBBS, MPH [address] [place] [phone] [email or web address] documented as of this encounter Procedures Procedure Name Priority Date/Time Associated Diagnosis Comments BI MAMMOGRAM OUTSIDE (NO INTERPRETATION) Routine 10/13/2013 12:00 AM EST documented in this encounter Results * Mammogram Outside (No Interpretation) (10/13/2013 12:00 AM EST) Narrative SYSTEMGENERATED, DOCUMENTATION - 10/16/2021 11:25 AM EST This study is for PACS [...] It is not the complete legal health record.[facility]
--- OUTSIDE RECORDS SUMMARY | 2013-10-13 00:05 | XMS_ITS | Encounter Summary ---
Author Organization [facility] Address [address] [place] [address] Phone Care Team Providers Care Sfdc Architect Name Role Phone Unavailable Primary Care Provider Unavailabl e Encounter Details Date Type Department Care Team (Late st Contact Info) Description 10/13/2013 12:05 AM EST Hospital Encounter [facility],Outside Imaging 30 [place] [address] System, Provider Not In, PhD Partners [address] [address] Social History Tobacco Use Types Packs/Day Years [...] 11/11/2024 9:38 PM Sylvia Galan RN * [place] Suicide Severity Rating Scale (Screener/Recent Self-Report) Question [...] Info) Description 09/28/2025 9:00 AM EST Telemedicine [facility] 165 [facility] 9th [place] [address] Henrique Mar MBBS, MPH [address] [place] [phone] [email or web address] documented as of this encounter [...] It is not the complete legal health record.[facility]
[2025-09-18 14:48] VITALS: BP 136/80; PULSE 76; BMI 21.8
--- NOTE | 2025-09-18 14:48 | A.OFFVIS_ITS ---
Vital Signs 09/18/25 14:48 Height 5 ft 2 in Weight 119 lb 0.794 oz BMI 21.8 BP 136/80 Blood Pressure Location Lt brachial Position Sitting Pulse 76 Intake Visit Reasons: Med review Intake Note: Follow-up requested by patient for dull pain in center of chest patient is also to start new oncology med Tymlos and not sure if it is safe for her heart Parts Specialist Required: No Postal Inspector: Postal Inspector Present Accompanied by: Daughter Allergies levofloxacin (From LEVAQUIN) Allergy (Severe, Verified 08/28/25 14:42) Severe itching acetaminophen (From TYLENOL) Allergy (Intermediate, Verified 08/28/25 14:42) Itching epinephrine (EPINEPHRINE) Allergy (Intermediate, Verified 08/28/25 14:42) Tachycardia Penicillins (PENICILLINS) Allergy (Intermediate, Verified 08/28/25 14:42) Itching and hives diclofenac (DICLOFENAC) Allergy (Unknown, Verified 08/28/25 14:42) Hives meperidine (Demerol) Allergy (Unknown, Verified 08/28/25 14:42) Rash penicillin V Allergy (Unknown, Verified 08/28/25 14:42) Rash procaine (From NOVOCAIN) Allergy (Unknown, Verified 08/28/25 14:42) Unknown feathers Allergy (Verified 08/28/25 14:42) Itching wool Allergy (Verified 08/28/25 14:42) Itching Sulfa (Sulfonamide Antibiotics) (SULFA (SULFONAMIDE ANTIBIOTICS)) Adverse Reaction (Intermediate, Verified 08/28/25 14:42) Nausea doxycycline Adverse Reaction (Verified 08/28/25 14:42) Stomach Upset Medication List - Last Reconciled 09/18/25 by Jermaine Renner NP abaloparatide (Tymlos) 80 mcg (0.04 mL) subcut DAILY adalimumab-adaz 40 mg (0.4 mL) subcut Q2W 4 weeks albuterol sulfate 90 mcg/actuation 2 puffs inhalation Q6H PRN budesonide DR-ER 12 mg (4 x 3 mg) PO DAILY 90 days carisoprodol 350 mg PO BID cholecalciferol (vitamin D3) (Vitamin D3) 50 mcg orally, daily ezetimibe 10 mg PO DAILY folic acid 1 mg PO DAILY 90 days insulin syringe-needle U-100 ([employer]ocate Syringes) As directed [loperamide 2 mg PO Q4-6H PRN] magnesium oxide 800 mg (2 x 400 mg (241.3 mg magnesium)) PO DAILY melatonin 10 mg PO BEDTIME methotrexate sodium 25 mg IV methotrexate sodium (PF) 12.5 mg (0.5 mL) IM QWEEK 30 days montelukast 10 mg PO BEDTIME olmesartan mg PO omeprazole 20 mg PO BID pen needle, diabetic (CareTouch Pen Needle) As directed inject once a day potassium chloride ER 20 mEq PO DAILY promethazine 25 mg PO Q8H PRN 30 days propranolol 10 mg PO TID PRN 30 days sodium bicarbonate 1,300 mg (2 x 650 mg) PO BID 30 days HPI Comments Details: This is a 75-year-old female patient coming in for a follow-up visit, accompanied by her daughter. 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 Today, patient is stating that her english as a second language teacher is starting her on a new medication for her osteoporosis and would like to undergo the previous testings prior to starting the Evenity. Patient reports ongoing intermittent chest pressure which can occur with exertion as well as at rest. Patient is denying any associated symptoms of shortness of breath, palpitations, dizziness, orthopnea, PND, leg edema, presyncope or syncope. Patient completed her renal ultrasound which was negative for stenosis. Patient also underwent carotid duplex ultrasound that showed mild carotid disease and was recommended statin therapy however patient reports having had issues with them in the past and therefore is now on Zetia therapy. Patient is otherwise reporting compliance with all her medications. [facility] Medical History Hypertension Mitral valve prolapse Lupus GERD (gastroesophageal reflux disease) COVID-19 long hauler Hypoglycemia Asthma Hyperlipidemia Fibromyalgia Surgical History History of esophagogastroduodenoscopy (EGD) Hx of colonoscopy H/O dilation and curettage History of breast surgery Leg fracture, right Family History Paternal Aunt Breast CA Paternal Aunt Breast CA Social History Household Members: Spouse Household Members Other:: 2 Housing: House Do you presently have visiting nurse or other home services: No Alcohol intake: never Comment: pt. refusing bed alarm . Patient Tobacco Use Status: Never used Tobacco e-Cigarette/Vaping Use: Never Used Second Hand Smoke Exposure: No Advance Directives Date on File: 10/01/24 service: No Gender identity: Female Female Reproductive History Menstrual Age of Menarche: 12 Review of Systems Const Denies chills, Denies fatigue, Denies fever(s), Denies frequent falls, Denies weakness, Denies weight gain and Denies weight loss ENT Denies dizziness Card Denies chest pain, Denies leg edema, Denies lightheadedness, Denies palpitations, Denies dyspnea, Denies dyspnea on exertion, Denies orthopnea and Denies other (loss of consciousness) Resp Denies cough, Denies dyspnea and Denies dyspnea on exertion GI Denies hematochezia and Denies change in stool character Musc Denies abnormal gait, Denies muscle weakness, Denies numbness, Denies radiating pain into limb and Denies tingling Neuro Denies abnormal gait, Denies dizziness, Denies frequent falls, Denies numbness, Denies tingling and Denies weakness Endo Denies fatigue and Denies palpitations Physical Exam Vital Signs: Last Vital Signs Pulse 76 09/18/25 14:48 BP 136/80 09/18/25 14:48 BMI result Body Mass Index 21.8 Const General: cooperative, healthy appearing, comfortable and no acute distress Orientation/consciousness: patient oriented x3 HEENT Head: Yes normal to inspection Neck Neck: Yes normal visual inspection, Yes trachea midline and Yes supple Chest Chest palpation & inspection: normal inspection of the chest Resp Effort & Inspection: normal respiratory effort Auscultation: clear to auscultation bilaterally, no crackles, no rales, no rhonchi and no wheezes Cardio Jugular venous distension: no JVD Palpation: normal PMI Rate: regular rate Rhythm: regular rhythm Heart sounds: S1 normal heart sound present, S2 normal heart sound present, no click, no gallops, no murmurs and no rubs Peripheral pulses: Peripheral pulses 2+ throughout GI Inspection: Yes normal to inspection Palpation (GI): Soft to palpation Auscultation: normal bowel sounds Skin General skin exam: no rashes or lesions noted Neuro General: patient oriented x3 Extrem General: Yes normal to inspection, No no pedal edema and No calf tenderness Psych Appearance: grossly normal Mental Status: mental status grossly normal Speech and movement: Normal speech and movement present Assessment & Plan Assessment & Plan (1) Chest pain: Code(s): R07.9 - Chest pain, unspecified Category: Medical Plan: Given her multiple risk factors and ongoing symptoms of chest discomfort, we will plan for a myocardial perfusion study to look for ischemic disease. Patient states she is able to walk on a treadmill however if she is not able to we can switch this to Lexiscan. We will also plan to get an echo to assess for LV systolic and diastolic dysfunction as well as valvular pathology. Explained on need to complete the testings. Patient understanding of the plan. 02/08/2025-bilateral carotid ultrasound show an 0-49% stenosis. Was recommended on statin therapy however due to her intolerance in the past, patient on Zetia. Continue the same. (2) Uncontrolled hypertension: Code(s): I10 - Essential (primary) hypertension Category: Medical Plan: Blood pressure today is well-controlled. Continue current regimen. Advised monitoring blood pressures at home and keeping a log of it. Advised on low-salt diet. 02/16/2025-patient underwent renal ultrasound that was negative for stenosis. Follow up after testing. In the interim, patient will call the office with any concerns or change in symptoms. This note was generated using voice recognition software. While every effort has been made to ensure accuracy and proper ext js developer, there may be occasional errors that could affect the content or meaning of the described symptoms. Orders: Orders CA echo transthoracic complete Today R07.9 - Chest pain, unspecified CA stress test Today R07.9 - Chest pain, unspecified NM cardiolite stress test Today R07.9 - Chest pain, unspecified Coding Level of Care Code Est Pt Level 4 (80178) Complex visit Add On G2211 Diagnoses Chest pain R07.9 Uncontrolled hypertension I10 Time Spent (min) 32 Comment Time spent in reviewing the chart, test results, assessment, counseling and documentation.
--- OUTSIDE RECORDS SUMMARY | 2025-09-18 17:49 | XMS_ITS | Encounter Summary ---
Author Organization [facility] Address [address] [place] [address] Phone Care Team Providers Care Sharepoint Analyst Name Role Phone Parvez Cortez MD Primary Care Prov ider Parvez Cortez MD Primary Care Prov ider Fern Blackburn MD Unavailable [phone] Encounter Details Date Type Department Care Team (Late st Contact Info) Description 10/16/2021 Ancillary Orders [facility],Outside Imaging [address] [place] [address] System, Provider Not In, PhD Partners [address] [address] Social History Tobacco Use Types Packs/Day Years [...] Info) Description 09/28/2025 9:00 AM EST Telemedicine [facility] [address] [facility] 9th [place] [address] Henrique Mar MBBS, MPH [address] [facility] [address] [place] [phone] [email or web address] documented as of this encounter Results [...] documented as of this encounter Care Teams Sharepoint Analyst Relationship Specialty Start Date End Date Parvez Cortez MD PCP - General 08/04/17 4 Parvez Cortez MD [address] [place] [address] PCP - General Family Medicine 06/01/24 Fern Blackburn MD [address] [place] [address] Dr Conklin [address] [place] [address] Gastroenterology 07/17/25 documented as of this encounter Additional Source Comments The information contained in this document represents components of the legal health record. It is not the complete legal health record.[facility]
--- OUTSIDE RECORDS SUMMARY | 2025-09-18 17:49 | XMS_ITS | Encounter Summary ---
Author Organization [facility] Address [address] [place] [address] Phone Care Team Providers Care Counseling Services Director Name Role Phone Parvez Cortez MD Primary Care Prov ider Parvez Cortez MD Primary Care Prov ider Fern Blackburn MD Unavailable [phone] Encounter Details Date Type Department Care Team (Late Contact Info) Description 09/16/2022 Transcribe Orders Virtual Department [address] [place] [address] Parvez Cortez MD [address] [place] [address] [email or web address] Essential (primary) hypertension (Primary Dx) Social [...] Info) Description 09/28/2025 9:00 AM EST Telemedicine [facility] [address] [facility] [address]th [place] [address] Henrique Mar MBBS, MPH [address] [facility] [address] [place] [phone] [email or web address] documented as of this encounter Visit Diagnoses Diagnosis Essential (primary) hypertension- Primary Unspecified essential hypertension documented in this encounter Additional Health Concerns Infection Onset Date Last Indicated Resolved Time CDiff-Risk 06/01/2024 06/01/2024 06/01/2024 10:3 6 PM EDT documented as of this encounter Care Teams Counseling Services Director Relationship Specialty Start Date End Date Parvez Cortez MD [email or web address] PCP - General 08/04/17 4 Parvez Cortez MD [address] [place] [address] PCP - General Family Medicine 06/01/24 Fern Blackburn MD [address] [place] [address] [place] [address] Gastroenterology 07/17/25 documented as of this encounter Additional Source Comments The information contained in this document represents components of the legal health record. It is not the complete legal health record.[facility]
--- OUTSIDE RECORDS SUMMARY | 2025-09-18 17:49 | XMS_ITS | Clinical Summary ---
Author Organization [facility] Address [address] [place] [address] Phone Care Team Providers Care Oracle Programmer Analyst Name Role Phone Parvez Cortez MD Primary Care Prov ider Fern Blackburn MD Unavailable [phone] Allergies Active Allergy Reactions Criticality Noted [...] times a day. 06/10/2024 Active multivitamin with zidotuwq-usvc-x olic acid (ONE-A-DAY WOMEN'S COMPLETE) 18 mg [...] she is referred to the [facility] at [facility]. Discussed that long COVID is an evolving [...] Team Description 07/17/2025 2:00 PM EDT Telemedicine [facility] [address] 9th [place] [address] Gabriela Franco PA-C Crohn's disease with other [...] [facility] [address], [place] [address] Henrique Mar MBBS, MPH [address] [place] [phone] [email or web address] Health Maintenance Due Date Last Done [...] of pain. Tiana Gil NP IMG MG [facility] Susan l Result from Last 3 Months or Most Recently Relevant to Health Maintenance [place] [place] [address] EXPLORER POS [facility] EXPLORER [facility] EX[facility] POS HC EXPLORER POS Advance Directives For more information, please contact: [phone] (9AM - 5PM Pamella/[facility], Thursday-Thursday) * Full Code (Latest Code Status on File) Date Activated Date Inactivated Comments 11/11/2024 4:10 AM Question Answer Comments Code Status Confirmed With: Patient Care Teams Oracle Programmer Analyst Relationship Specialty Start Date End Date Parvez Cortez MD [address] [place] [address] [email or web address] PCP - General Family Medicine 06/01/24 Fern Blackburn MD [address] [place] [address] Dr Conklin [address] [place] [address] Gastroenterology 07/17/25 Additional Source Comments The information contained in this document represents components of the legal health record. It is not the complete legal health record.[facility]
--- OUTSIDE RECORDS SUMMARY | 2025-09-18 17:49 | XMS_ITS | Encounter Summary ---
Author Organization [facility] Address [address] [place] [address] Phone Care Team Providers Care Continuous Improvement Black Belt Name Role Phone Parvez Cortez MD Primary Care Prov ider Parvez Cortez MD Primary Care Prov ider Fern Blackburn MD Unavailable [phone] Encounter Details Date Type Department Care Team (Late st Contact Info) Description 12/07/2020 Transcribe Orders Virtual Department [address] [place] [address] Kami Mena PA [address] [place] [address] Muscle ache (Primary Dx); Stuffy and runny [...] Info) Description 09/28/2025 9:00 AM EST Telemedicine [facility] [address] [facility] [address] [address] Henrique Mar, ADA, MPH [address] [place] [phone] [email or web address] documented as of this encounter Visit Diagnoses Diagnosis Muscle ache- Primary Unspecified myalgia and myositis Stuffy and runny nose Other diseases of nasal cavity and sinuses documented in this encounter Additional Health Concerns Infection Onset Date Last Indicated Resolved Time CoV-Risk 12/07/2020 12/07/2020 12/17/2020 1:23 AM EST CDiff-Risk 06/01/2024 06/01/2024 06/01/2024 10:3 6 PM EDT documented as of this encounter Care Teams Continuous Improvement Black Belt Relationship Specialty Start Date End Date Parvez Cortez MD PCP - General 08/04/17 4 Parvez Cortez MD 238 [place] [address] PCP - General Family Medicine 06/01/24 Fern Blackburn MD [address] [place] [address] Dr Conklin 3 [place] [address] Gastroenterology 07/17/25 documented as of this encounter Additional Source Comments The information contained in this document represents components of the legal health record. It is not the complete legal health record.[facility]
--- OUTSIDE RECORDS SUMMARY | 2025-09-18 17:49 | XMS_ITS | Encounter Summary ---
Author Organization [facility] Address [address] [place] [address] Phone Care Team Providers Care Husbandry Technician Name Role Phone Parvez Cortez MD Primary Care Prov ider Parvez Cortez MD Primary Care Prov ider Fern Blackburn MD Unavailable [phone] Encounter Details Date Type Department Care Team (Late st Contact Info) Description 10/16/2021 Ancillary Orders [facility],Outside Imaging 30 [place] [address] System, Provider Not In, PhD Partners [address] [address] Social History Tobacco Use Types Packs/Day Years [...] Info) Description 09/28/2025 9:00 AM EST Telemedicine [facility] [address] [facility] 9th [place] [address] Henrique Mar MBBS, MPH [address] [facility] 980 [place] [phone] [email or web address] documented as of this encounter Results [...] documented as of this encounter Care Teams Husbandry Technician Relationship Specialty Start Date End Date Parvez Cortez MD PCP - General 08/04/17 4 Parvez Cortez MD 238 [place] [address] PCP - General Family Medicine 06/01/24 Fern Blackburn MD [address] [place] [address] Dr Conklin [address] [place] [address] Gastroenterology 07/17/25 documented as of this encounter Additional Source Comments The information contained in this document represents components of the legal health record. It is not the complete legal health record.[facility]
--- OUTSIDE RECORDS SUMMARY | 2025-09-18 17:49 | XMS_ITS | Encounter Summary ---
Author Organization [facility] Address [address] [place] [address] Phone Care Team Providers Care Revenue Settlements Administrator Name Role Phone Parvez Cortez MD Primary Care Prov ider Parvez Cortez MD Primary Care Prov ider Fern Blackburn MD Unavailable [phone] Encounter Details Date Type Department Care Team (Late st Contact Info) Description 10/16/2021 Ancillary Orders [facility],Outside Imaging 30 [place] [address] System, Provider Not In, PhD Partners [address] [address] Social History Tobacco Use Types Packs/Day Years [...] Info) Description 09/28/2025 9:00 AM EST Telemedicine [facility] [address] [facility] 9th [place] [address] Henrique Mar MBBS, MPH [address] [facility] 980 [place] [phone] [email or web address] documented as of this encounter Results * [...] documented as of this encounter Care Teams Revenue Settlements Administrator Relationship Specialty Start Date End Date Parvez Cortez MD PCP - General 08/04/17 4 Parvez Cortez MD 238 [place] [address] PCP - General Family Medicine 06/01/24 Fern Blackburn MD [address] [place] [address] Dr Conklin [address] [place] [address] Gastroenterology 07/17/25 documented as of this encounter Additional Source Comments The information contained in this document represents components of the legal health record. It is not the complete legal health record.[facility]
--- OUTSIDE RECORDS SUMMARY | 2025-09-18 17:49 | XMS_ITS | Encounter Summary ---
Author Organization [facility] Address [address] [place] [address] Phone Care Team Providers Care Chair Inspector And Leveler Name Role Phone Parvez Cortez MD Primary Care Prov ider Parvez Cortez MD Primary Care Prov ider Fern Blackburn MD Unavailable [phone] Encounter Details Date Type Department Care Team (Late st Contact Info) Description 10/15/2021 Procedure Pass [facility] [address] [place] [address] Social History Tobacco Use Types Packs/Day Years [...] Info) Description 09/28/2025 9:00 AM EST Telemedicine [facility] [address]th [place] [address] Henrique Mar MBBS, MPH [address] [place] [phone] [email or web address] documented as of this encounter Visit Diagnoses Not on filedocumented in this encounter Additional Health Concerns Infection Onset Date Last Indicated Resolved Time CDiff-Risk 06/01/2024 06/01/2024 06/01/2024 10:3 6 PM EDT documented as of this encounter Care Teams Chair Inspector And Leveler Relationship Specialty Start Date End Date Parvez Cortez MD PCP - General 08/04/17 4 Parvez Cortez MD [address] [place] [address] PCP - General Family Medicine 06/01/24 Fern Blackburn MD [address] [place] [address] Dr Conklin 3 [place] [id number] Gastroenterology 07/17/25 documented as of this encounter Additional Source Comments The information contained in this document represents components of the legal health record. It is not the complete legal health record.[facility]
--- OUTSIDE RECORDS SUMMARY | 2025-09-18 17:49 | XMS_ITS | Encounter Summary ---
Author Organization [facility] Address [address] [place] [address] Phone Care Team Providers Care Production Generalist Name Role Phone Parvez Cortez MD Primary Care Prov ider Parvez Cortez MD Primary Care Prov ider Fern Blackburn MD Unavailable [phone] Encounter Details Date Type Department Care Team (Late st Contact Info) Description 10/16/2021 Ancillary Orders [facility],Outside Imaging 30 [place] [address] System, Provider Not In, PhD Partners [address] [address] Social History Tobacco Use Types Packs/Day Years [...] [facility] [place] [facility] [address] [facility] 9th [place] [address] Henrique Mar MBBS, MPH [address] [facility] 980 [place] [phone] [email or web address] documented as of this encounter [...] documented as of this encounter Care Teams Production Generalist Relationship Specialty Start Date End Date Parvez Cortez MD PCP - General 08/04/17 4 Parvez Cortez MD 238 [place] [address] PCP - General Family Medicine 06/01/24 Fern Blackburn MD [address] [place] [address] Dr Conk[address] [place] [address] Gastroenterology 07/17/25 documented as of this encounter Additional Source Comments The information contained in this document represents components of the legal health record. It is not the complete legal health record.[facility]
--- OUTSIDE RECORDS SUMMARY | 2025-09-18 17:49 | XMS_ITS | Encounter Summary ---
Author Organization [facility] Address [address] [place] [address] Phone Care Team Providers Care Heating Equipment Repairer Name Role Phone Parvez Cortez MD Primary Care Prov ider Parvez Cortez MD Primary Care Prov ider Fern Blackburn MD Unavailable [phone] Encounter Details Date Type Department Care Team (Late st Contact Info) Description 10/15/2021 Procedure Pass [facility] [address] [place] [address] Social History Tobacco Use Types Packs/Day Years [...] [facility] [address] [facility] 9th [place] [address] Henrique Mar MBBS, MPH 55 [facility] 980 [place] [phone] [email or web address] documented as of this encounter Visit Diagnoses Not on filedocumented in this encounter Additional Health Concerns Infection Onset Date Last Indicated Resolved Time CDiff-Risk 06/01/2024 06/01/2024 06/01/2024 10:3 6 PM EDT documented as of this encounter Care Teams Heating Equipment Repairer Relationship Specialty Start Date End Date Parvez Cortez MD PCP - General 08/04/17 4 Parvez Cortez MD [address] [place] [address] PCP - General Family Medicine 06/01/24 Fern Blackburn MD [address] [place] [address] Dr Conklin [address] [place] [address] Gastroenterology 07/17/25 documented as of this encounter Additional Source Comments The information contained in this document represents components of the legal health record. It is not the complete legal health record.[facility]
--- OUTSIDE RECORDS SUMMARY | 2025-09-18 17:49 | XMS_ITS | Encounter Summary ---
Author Organization [facility] Address [address] [place] [address] Phone Care Team Providers Care Mechanical Press Operator Name Role Phone Parvez Cortez MD Primary Care Prov ider Parvez Cortez MD Primary Care Prov ider Fern Blackburn MD Unavailable [phone] Encounter Details Date Type Department Care Team (Late st Contact Info) Description 10/16/2021 Ancillary Orders [facility],Outside Imaging 30 [place] [address] System, Provider Not In, PhD Partners [address] [address] Social History Tobacco Use Types Packs/Day Years [...] Info) Description 09/28/2025 9:00 AM EST Telemedicine [facility] 165 [facility] 9th [place] [address] Henrique Mar MBBS, MPH [address] [facility] 980 [place] [phone] [email or web address] documented as of this encounter Results [...] documented as of this encounter Care Teams Mechanical Press Operator Relationship Specialty Start Date End Date Parvez Cortez MD PCP - General 08/04/17 4 Parvez Cortez MD 238 [place] [address] PCP - General Family Medicine 06/01/24 Fern Blackburn MD [address] [place] [address] Dr Conklin 3 [place] [address] Gastroenterology 07/17/25 documented as of this encounter Additional Source Comments The information contained in this document represents components of the legal health record. It is not the complete legal health record.[facility]
--- OUTSIDE RECORDS SUMMARY | 2025-09-18 17:49 | XMS_ITS | Encounter Summary ---
Author Organization [facility] Address [address] [place] [address] Phone Care Team Providers Care Director Of Communications Name Role Phone Parvez Cortez MD Primary Care Prov ider Parvez Cortez MD Primary Care Prov ider Fern Blackburn MD Unavailable [phone] Encounter Details Date Type Department Care Team (Late st Contact Info) Description 10/16/2021 Ancillary Orders [facility],Outside Imaging 30 [place] [address] System, Provider Not In, PhD Partners [address] [address] Social History Tobacco Use Types Packs/Day Years [...] Info) Description 09/28/2025 9:00 AM EST Telemedicine [facility] [address] [facility] 9th [place] [address] Henrique Mar MBBS, MPH [address] [facility] 980 [place] [phone] [email or web address] documented as of this encounter Results * [...] documented as of this encounter Care Teams Director Of Communications Relationship Specialty Start Date End Date Parvez Cortez MD PCP - General 08/04/17 4 Parvez Cortez MD 238 [place] [address] PCP - General Family Medicine 06/01/24 Fern Blackburn MD [address] [place] [address] Dr Conklin [address] [place] [address] Gastroenterology 07/17/25 documented as of this encounter Additional Source Comments The information contained in this document represents components of the legal health record. It is not the complete legal health record.[facility]
--- OUTSIDE RECORDS SUMMARY | 2025-09-18 17:49 | XMS_ITS | Encounter Summary ---
Author Organization [facility] Address [address] [place] [address] Phone Care Team Providers Care Nib Adjuster Name Role Phone Parvez Cortez MD Primary Care Prov ider Parvez Cortez MD Primary Care Prov ider Fern Blackburn MD Unavailable [phone] Encounter Details Date Type Department Care Team (Late st Contact Info) Description 10/16/2021 Ancillary Orders [facility],Outside Imaging 30 [place] [address] System, Provider Not In, PhD Partners [address] [address] Social History Tobacco Use Types Packs/Day Years [...] [facility] [place] [facility] [address] [facility] 9th [place] [address] Henrique Mar MBBS, MPH [address] [facility] 980 [place] [phone] [email or web address] documented as of this encounter Results [...] documented as of this encounter Care Teams Nib Adjuster Relationship Specialty Start Date End Date Parvez Cortez MD PCP - General 08/04/17 4 Parvez Cortez MD 238 [place] [address] PCP - General Family Medicine 06/01/24 Fern Blackburn MD [address] [place] [address] Dr Conklin [address] [place] [address] Gastroenterology 07/17/25 documented as of this encounter Additional Source Comments The information contained in this document represents components of the legal health record. It is not the complete legal health record.[facility]
== END 2025-09-18 15:23 | disposition home or self-care (01) ==
LOC: HO.HCS 14:32
PROVIDERS: PCP Family Medicine
DX: R07.9 Chest pain, unspecified (principal); I10 Essential (primary) hypertension
CPT/HCPCS: 99214

== ENCOUNTER 2025-10-16 09:24 | Outpatient (REF) | payer OTHER, SELFPAY ==
--- OUTSIDE RECORDS SUMMARY | 2012-08-24 | XMS_ITS | Encounter Summary ---
Author Organization [facility] Address [address] [place] [address] Phone Care Team Providers Care Building Associate Name Role Phone Unavailable Primary Care Provider Unavailabl e Encounter Details Date Type Department Care Team (Late st Contact Info) Description 08/24/2012 Hospital Encounter [facility],Outside Imaging 30 [place] [address] System, Provider Not In, PhD [address] [address] Social History Tobacco Use Types Packs/Day Years [...] on file documented as of this encounter Plan of Treatment Upcoming Encounters Date Type Department Care Team (Late st Contact Info) Description 02/12/2026 12:00 PM EDT Office Visit [facility] [address] [place] [address] Teto Dutta DO [address] [place] [address] [email or web address] documented as of this encounter Procedures Procedure [...] It is not the complete legal health record.[facility]
--- OUTSIDE RECORDS SUMMARY | 2013-10-13 | XMS_ITS | Encounter Summary ---
Author Organization [facility] Address [address] [place] [address] Phone Care Team Providers Care Document Control Clerk Name Role Phone Unavailable Primary Care Provider Unavailabl e Encounter Details Date Type Department Care Team (Late st Contact Info) Description 10/13/2013 Hospital Encounter [facility],Outside Imaging 30 [place] [address] System, Provider Not In, PhD [facility] [address] [address] Social History Tobacco Use Types Packs/Day Years [...] Description 02/12/2026 12:00 PM EDT Office Visit [facility] [address] [place] [address] Teto Dutta DO [address] [place] [address] [email or web address] documented as of this encounter Procedures Procedure [...] It is not the complete legal health record.[facility]
--- OUTSIDE RECORDS SUMMARY | 2013-10-13 00:05 | XMS_ITS | Encounter Summary ---
Author Organization [facility] Address [address] [place] [address] Phone Care Team Providers Care Sales Associate Cashier Name Role Phone Unavailable Primary Care Provider Unavailabl e Encounter Details Date Type Department Care Team (Late st Contact Info) Description 10/13/2013 12:05 AM EST Hospital Encounter [facility],Outside Imaging 30 [place] [address] System, Provider Not In, PhD Partners [address] [address] Social History Tobacco Use Types Packs/Day Years [...] Description 02/12/2026 12:00 PM EDT Office Visit [facility] 22 [place] [address] Teto Dutta DO 22 [place] [address] [email or web address] documented as of this encounter Procedures Procedure [...] It is not the complete legal health record.[facility]
--- NOTE | ~2025-10-16 | US_ITS ---
EXAMINATION(S): 1. MM DIAGNOSTIC DIGITAL BREAST TOMOSYNTHESIS, BILATERAL 2. TARGETED ULTRASOUND OF THE RIGHT BREAST CLINICAL INFORMATION: -Reason for Exam-RT BR PAIN,?MASS @10-11:00 -According to the patient, there is a small area of residual bruising at the location of the stereotactic needle core biopsy in the right breast. -Stereotactic needle core biopsy of the right breast calcifications in the upper outer quadrant on January 07, 2025. Cork shape metallic clip. Pathology showed breast tissue with fibroadenomatous change and coarse calcifications. Background of fibrocystic changes. According to the report, no postprocedure mammogram was performed as the patient was in too much pain and had a large hematoma. -Stereotactic needle core biopsy of the left breast calcifications in the upper outer quadrant on August 21, 2023. Cylinder shape marker pathology showed benign breast tissue with sclerotic stromal fibrosis with calcifications. -Two right excisional biopsies in 1968. COMPARISON: Comparison made to multiple prior, most recent right stereotactic biopsy on January 05, 2025, and most remote January 17, 2016. TECHNIQUE: Digital breast tomosynthesis is performed in both the mediolateral oblique and craniocaudal views along with computer-aided detection (CAD). Synthesized 2D images are generated from the tomosynthesis. Right full-field ML 90 degrees and spot compression CC views of the right breast were also obtained. A triangular skin marker was placed at the location of the clinical concern of focal pain in the upper outer quadrant of the right breast. FINDINGS: BREAST COMPOSITION: The breasts are heterogeneously dense, which may obscure small masses. RIGHT BREAST: History of previous excisional biopsies. Tissue marker from previous needle core biopsy. Focal asymmetry in the upper outer quadrant extending from the skin to the level of the stereotactic needle core biopsy tissue marker is in the vicinity of the triangular skin marker. No suspicious calcifications are seen. Targeted ultrasound of the right breast was performed location of the pain/palpable concern in the right breast as indicated by the patient, and at the location of the mammographic finding. The survey shows two adjacent echogenic superficial areas measuring 0.7 x 0.6 x 0.6 cm and 0.6 x 0.3 x 0.6 cm at 11 o'clock position at 5 cm from the nipple. The breast tissue in the immediate vicinity has somewhat heterogeneous appearance. No abnormal vascularity demonstrated with color Doppler evaluation. LEFT BREAST: Tissue marker from previous needle core biopsy. No significant masses, suspicious calcifications or other abnormalities are seen. US/US Breast RT Limited Mamm Only IMPRESSION: RIGHT BREAST: Given known history of large hematoma postbiopsy in December 2024, and the residual visible skin bruise, the abnormal mammographic or sonographic findings at 11 o'clock position 5 cm from the nipple appears to represent residual hematoma. Probably benign. Short-term 3-month follow-up right breast ultrasound and mammogram is recommended. LEFT BREAST: Benign, no mammographic evidence of malignancy. Normal interval follow-up is recommended in 12 months. ASSESSMENT: BI-RADS: Category 3: Probably benign RECOMMENDATION: 1-3 Months F/U Results were provided to the patient at time of visit by the technologist. This patient's information was entered into a reminder system with a target due date for their next mammogram. Electronically signed by: Juice Turk MD 10/16/2025 10:45 AM [facility]
--- OUTSIDE RECORDS SUMMARY | 2025-10-16 09:52 | XMS_ITS | Encounter Summary ---
Author Organization [facility] Address [address] [place] [address] Phone Care Team Providers Care Vehicle Dynamics Engineer Name Role Phone Parvez Cortez MD Primary Care Prov ider Parvez Cortez MD Primary Care Prov ider Fern Blackburn MD Unavailable [phone] Encounter Details Date Type Department Care Team (Late st Contact Info) Description 12/07/2020 Transcribe Orders Virtual Department 30 [place] [address] Kami Mena PA 238 [place] [address] Muscle ache (Primary Dx); Stuffy and runny [...] Description 02/12/2026 12:00 PM EDT Office Visit [facility] [address] [place] [address] Teto Dutta, [address] [place] [address] [email or web address] documented as of this encounter Visit Diagnoses Diagnosis Muscle ache- Primary Unspecified myalgia and myositis Stuffy and runny nose Other diseases of nasal cavity and sinuses documented in this encounter Additional Health Concerns Infection Onset Date Last Indicated Resolved Time CoV-Risk 12/07/2020 12/07/2020 12/17/2020 1:23 AM EST CDiff-Risk 06/01/2024 06/01/2024 06/01/2024 10:3 6 PM EDT documented as of this encounter Care Teams Vehicle Dynamics Engineer Relationship Specialty Start Date End Date Parvez Cortez MD PCP - General 08/04/17 4 Parvez Cortez MD [address] [place] [address] PCP - General Family Medicine 06/01/24 Fern Blackburn MD [address] [place] [address] [place] [address] Gastroenterology 07/17/25 documented as of this encounter Additional Source Comments The information contained in this document represents components of the legal health record. It is not the complete legal health record.[facility]
--- OUTSIDE RECORDS SUMMARY | 2025-10-16 09:52 | XMS_ITS | Encounter Summary ---
Author Organization [facility] Address [address] [place] [address] Phone Care Team Providers Care Screw Machine Adjuster Automatic Name Role Phone Parvez Cortez MD Primary Care Prov ider Parvez Cortez MD Primary Care Prov ider Fern Blackburn MD Unavailable Encounter Details Date Type Department Care Team (Late st Contact Info) Description 10/16/2021 Ancillary Orders [facility],Outside Imaging 30 [place] [address] System, Provider Not In, [place] [address] Social History Tobacco Use Types Packs/Day Years [...] Description 02/12/2026 12:00 PM EDT Office Visit [facility] 22 [place] [address] Teto Dutta DO 22 [place] [address] [email or web address] documented as of this encounter Results * [...] documented as of this encounter Care Teams Screw Machine Adjuster Automatic Relationship Specialty Start Date End Date Parvez Cortez MD PCP - General 08/04/17 4 Parvez Cortez MD 238 [place] [address] PCP - General Family Medicine 06/01/24 Fern Blackburn MD [address] [place] [address] Dr Conklin 3 [place] [address] Gastroenterology 07/17/25 documented as of this encounter Additional Source Comments The information contained in this document represents components of the legal health record. It is not the complete legal health record.[facility]
--- OUTSIDE RECORDS SUMMARY | 2025-10-16 09:52 | XMS_ITS | Encounter Summary ---
Author Organization [facility] Address [address] [place] [address] Phone Care Team Providers Care Food Science Technician Name Role Phone Parvez Cortez MD Primary Care Prov ider Parvez Cortez MD Primary Care Prov ider Fern Blackburn MD Unavailable [phone] Encounter Details Date Type Department Care Team (Late st Contact Info) Description 10/16/2021 Ancillary Orders [facility],Outside Imaging 30 [place] [address] System, Provider [place] In, [place] [address] Social History Tobacco Use Types Packs/Day Years [...] Description 02/12/2026 12:00 PM EDT Office Visit [facility] 22 [place] [address] Teto Dutta DO 22 [place] [address] [email or web address] documented as of this encounter Results * [...] documented as of this encounter Care Teams Food Science Technician Relationship Specialty Start Date End Date Parvez Cortez MD PCP - General 08/04/17 4 Parvez Cortez MD 238 [place] [address] PCP - General Family Medicine 06/01/24 Fern Blackburn MD [address] [place] [address] Dr Conklin 3 [place] [address] Gastroenterology 07/17/25 documented as of this encounter Additional Source Comments The information contained in this document represents components of the legal health record. It is not the complete legal health record.[facility]
--- OUTSIDE RECORDS SUMMARY | 2025-10-16 09:52 | XMS_ITS | Encounter Summary ---
Author Organization [facility] Address [address] [place] [address] Phone Care Team Providers Care Coal Or Ore Controller Name Role Phone Parvez Cortez MD Primary Care Prov ider Parvez Cortez MD Primary Care Prov ider Fern Blackburn MD Unavailable [phone] Encounter Details Date Type Department Care Team (Late st Contact Info) Description 10/16/2021 Ancillary Orders [facility],Outside Imaging [address] [place] [address] System, Provider [place] In, [place] [address] Social History Tobacco Use Types Packs/Day Years [...] 02/12/2026 12:00 PM EDT Office Visit [facility] [address] [place] [address] Teto Dutta DO 22 [place] [address] [email or web address] documented as of this encounter Results * [...] documented as of this encounter Care Teams Coal Or Ore Controller Relationship Specialty Start Date End Date Parvez Cortez MD PCP - General 08/04/17 4 Parvez Cortez MD [address] [place] [address] PCP - General Family Medicine 06/01/24 Fern Blackburn MD [address] [place] [address] Dr Conklin [address] [place] [address] Gastroenterology 07/17/25 documented as of this encounter Additional Source Comments The information contained in this document represents components of the legal health record. It is not the complete legal health record.[facility]
--- OUTSIDE RECORDS SUMMARY | 2025-10-16 09:52 | XMS_ITS | Encounter Summary ---
Author Organization [facility] Address [address] [place] [address] Phone Care Team Providers Care Obiee Lead Developer Name Role Phone Parvez Cortez MD Primary Care Prov ider Parvez Cortez MD Primary Care Prov ider Fern Blackburn MD Unavailable [phone] Encounter Details Date Type Department Care Team (Late st Contact Info) Description 10/15/2021 Procedure Pass [facility] - [address] [place] [address] Social History Tobacco Use Types Packs/Day Years [...] Description 02/12/2026 12:00 PM EDT Office Visit [facility] [address] [place] [address] Teto Dutta, 22 [place] [address] documented as of this encounter Visit Diagnoses Not on filedocumented in this encounter Additional Health Concerns Infection Onset Date Last Indicated Resolved Time CDiff-Risk 06/01/2024 06/01/2024 06/01/2024 10:3 6 PM EDT documented as of this encounter Care Teams Obiee Lead Developer Relationship Specialty Start Date End Date Parvez Cortez MD PCP - General 08/04/17 4 Parvez Cortez MD [address] [place] [address] PCP - General Family Medicine 06/01/24 Fern Blackburn MD [address] [place] [address] Dr Conklin 3 [place] [address] Gastroenterology 07/17/25 documented as of this encounter Additional Source Comments The information contained in this document represents components of the legal health record. It is not the complete legal health record.[facility]
--- OUTSIDE RECORDS SUMMARY | 2025-10-16 09:52 | XMS_ITS | Encounter Summary ---
Author Organization [facility] Address [address] [place] [address] Phone Care Team Providers Care Sequins Stringer Name Role Phone Parvez Cortez MD Primary Care Prov ider Parvez Cortez MD Primary Care Prov ider Fern Blackburn MD Unavailable [phone] Encounter Details Date Type Department Care Team (Late Contact Info) Description 09/16/2022 Transcribe Orders Virtual Department 30 [place] [address] Parvez Cortez MD [address] [place] [address] [email or web address] Essential (primary) hypertension (Primary Dx) Social History [...] Department Care Team (Late Contact Info) Description 02/12/2026 12:00 PM EDT Office Visit [facility] 22 [place] [address] Teto Dutta, DO 22 [place] [address] [email or web address] documented as of this encounter Visit Diagnoses Diagnosis Essential (primary) hypertension- Primary Unspecified essential hypertension documented in this encounter Additional Health Concerns Infection Onset Date Last Indicated Resolved Time CDiff-Risk 06/01/2024 06/01/2024 06/01/2024 10:3 6 PM EDT documented as of this encounter Care Teams Sequins Stringer Relationship Specialty Start Date End Date Parvez Cortez MD [email or web address] PCP - General 08/04/17 4 Parvez Cortez MD [address] [place] [address] PCP - General Family Medicine 06/01/24 Fern Blackburn MD [address] [place] [address] [place] [address] Gastroenterology 07/17/25 documented as of this encounter Additional Source Comments The information contained in this document represents components of the legal health record. It is not the complete legal health record.[facility]
--- OUTSIDE RECORDS SUMMARY | 2025-10-16 09:52 | XMS_ITS | Encounter Summary ---
Author Organization [facility] Address [address] [place] [address] Phone Care Team Providers Care Dice Person Name Role Phone Parvez Cortez MD Primary Care Prov ider Parvez Cortez MD Primary Care Prov ider Fern Blackburn MD Unavailable [phone] Encounter Details Date Type Department Care Team (Late st Contact Info) Description 10/15/2021 Procedure Pass [facility] - [address] [place] [address] Social History Tobacco Use Types Packs/Day Years [...] Description 02/12/2026 12:00 PM EDT Office Visit [facility] [address] [place] [address] Teto Dutta DO 22 [place] [address] documented as of this encounter Visit Diagnoses Not on filedocumented in this encounter Additional Health Concerns Infection Onset Date Last Indicated Resolved Time CDiff-Risk 06/01/2024 06/01/2024 06/01/2024 10:3 6 PM EDT documented as of this encounter Care Teams Dice Person Relationship Specialty Start Date End Date Parvez Cortez MD PCP - General 08/04/17 4 Parvez Cortez MD [address] [place] [address] PCP - General Family Medicine 06/01/24 Fern Blackburn MD [address] [place] [address] Dr Conklin 3 [place] [address] Gastroenterology 07/17/25 documented as of this encounter Additional Source Comments The information contained in this document represents components of the legal health record. It is not the complete legal health record.[facility]
--- OUTSIDE RECORDS SUMMARY | 2025-10-16 09:53 | XMS_ITS | Clinical Summary ---
Author Organization [facility] Address [address] [place] [address] Phone Care Team Providers Care Procurement Intern Name Role Phone Parvez Cortez MD Primary Care Prov ider Fern Blackburn MD Unavailable [phone] Allergies Active Allergy Reactions Criticality Noted [...] times a day. 06/10/2024 Active multivitamin with gpbpzhmn-nsnz-v olic acid (ONE-A-DAY WOMEN'S COMPLETE) 18 mg [...] training, and [facility]. Discussed that long COVID is an evolving [...] Encounters Date Type Department Care Team Description 09/29/2025 Transcribe Orders [facility] [address] [place] [address] Parvez Cortez MD Mild cognitive impairment (Primary Dx) 09/28/2025 9:00 AM EST Telemedicine [facility] Gastroenterology [address] [address] Henrique Campos MBBS, MPH Crohn's disease with other complication, unspecified gastrointestinal tract location (Primary Dx); Diarrhea, unspecified type; Underweight 07/17/2025 2:00 PM EDT Telemedicine [facility] Gastroenterology [address] [address] Gabriela Franco PA-C Crohn's disease with other [...] Description 02/12/2026 12:00 PM EDT Office Visit [facility] [address] [place] [address] Teto Dutta, 22 [place] [address] [phone] (work) Health Maintenance Due Date Last Done Comments LIPID PANEL 1951 HEPATITIS C SCREENING 1969 PNEUMOCOCCAL VACCINES (50+ years) (1 of 2 - PCV) 1970 ZOSTER VACCINES (1 of 2) 1970 COLOGUARD 1996 COLONOSCOPY 1996 COLORECTAL CANCER SCREENING 1996 FIT TEST 1996 FOBT 1996 SIGMOIDOSCOPY 1996 VIRTUAL COLONOSCOPY 1996 RSV VACCINE (1 - Risk 50-74 years 1-dose series) 2001 OSTEOPOROSIS SCREENING INITIAL (ONE-TIME) 2016 MAMMOGRAM 10/21/2023 10/21/2021, 07/19, 12/13/2019, Additional history exists DEPRESSION SCREENING 08/13/2024 08/13/2023, 08/13/20 23 INFLUENZA VACCINE (#1) 2025 , 09/08/2019, 08/12/2018 COVID-19 VACCINE ( season) 2025 08/13/2021, 02/06/2021, 01/15/2021 Adult Td,Tdap Booster 07/28/2032 07/28/2022, 010 SMOKING STATUS SCREENING (Once After 26 Yrs) Completed 09/28/2025 HEPATITIS A VACCINES Aged Out No long [...] Most Recently Relevant to Health Maintenance Insurance [facility] [employer] [address] [place] [address] EXPLORER POS [facility] [place] [address] [place] [address] EXPLORER POS [facility] EXPLORER POS [facility] EXPLORER POS Advance Directives For more information, please contact: [phone] (9AM - 5PM [place], Thursday-Thursday) * Full Code (Latest Code Status on File) Date Activated Date Inactivated Comments 11/11/2024 4:10 AM Question Answer Comments Code Status Confirmed With: Patient Care Teams Procurement Intern Relationship Specialty Start Date End Date Parevz Cortez MD [address] [place] [address] [email or web address] PCP - General Family Medicine 06/01/24 Fern Blackburn MD [address] [place] [address] Dr Conklin 3 [place] [address] Gastroenterology 07/17/25 Additional Source Comments The information contained in this document represents components of the legal health record. It is not the complete legal health record.[facility]
--- OUTSIDE RECORDS SUMMARY | 2025-10-16 09:53 | XMS_ITS | Encounter Summary ---
Author Organization [facility] Address [address] [place] [address] Phone Care Team Providers Care Carbon Paper Coating Machine Setter Name Role Phone Parvez Cortez MD Primary Care Prov ider Parvez Cortez MD Primary Care Prov ider Fern Blackburn MD Unavailable [phone] Encounter Details Date Type Department Care Team (Late st Contact Info) Description 10/16/2021 Ancillary Orders [facility],Outside Imaging [address] [place] [address] System, Provider Not In, [place] [address] Social History Tobacco Use Types Packs/Day Years [...] Description 02/12/2026 12:00 PM EDT Office Visit [facility] 22 [place] [address] Teto Dutta DO 22 [place] [address] [email or web address] documented [...] documented as of this encounter Care Teams Carbon Paper Coating Machine Setter Relationship Specialty Start Date End Date Parvez Cortez MD PCP - General 08/04/17 4 Parvez Cortez MD [address] [place] [address] PCP - General Family Medicine 06/01/24 Fern Blackburn MD [address] [place] [address] Dr Conklin 3 [place] [address] Gastroenterology 07/17/25 documented as of this encounter Additional Source Comments The information contained in this document represents components of the legal health record. It is not the complete legal health record.[facility]
--- OUTSIDE RECORDS SUMMARY | 2025-10-16 09:53 | XMS_ITS | Encounter Summary ---
Author Organization [facility] Address [address] [place] [address] Phone Care Team Providers Care Wired Music Operator Name Role Phone Parvez Cortez MD Primary Care Prov ider Parvez Cortez MD Primary Care Prov ider Fern Blackburn MD Unavailable [phone] Encounter Details Date Type Department Care Team (Late st Contact Info) Description 10/16/2021 Ancillary Orders [facility],Outside Imaging [address] [place] [address] System, Provider [place] In, [place] [address] Social History Tobacco Use Types Packs/Day Years [...] 02/12/2026 12:00 PM EDT Office Visit [facility] [address] [place] [address] Teto Dutta DO 22 [place] [address] [email or web address] documented as of this encounter Results * [...] documented as of this encounter Care Teams Wired Music Operator Relationship Specialty Start Date End Date Parvez Cortez MD PCP - General 08/04/17 4 Parvez Cortez MD [address] [place] [address] PCP - General Family Medicine 06/01/24 Fern Blackburn MD [address] [place] [address] Dr Conklin 3 [place] [address] Gastroenterology 07/17/25 documented as of this encounter Additional Source Comments The information contained in this document represents components of the legal health record. It is not the complete legal health record.[facility]
--- OUTSIDE RECORDS SUMMARY | 2025-10-16 09:53 | XMS_ITS | Encounter Summary ---
Author Organization [facility] Address [address] [place] [address] Phone Care Team Providers Care Supervisor Lump Room Name Role Phone Parvez Cortez MD Primary Care Prov ider Parvez Cortez MD Primary Care Prov ider Fern Blackburn MD Unavailable [phone] Encounter Details Date Type Department Care Team (Late st Contact Info) Description 10/16/2021 Ancillary Orders [facility],Outside Imaging [address] [place] [address] System, Provider [place] In, [place] [address] Social History Tobacco Use Types Packs/Day Years [...] Description 02/12/2026 12:00 PM EDT Office Visit [facility] [address] [place] [address] Teto Dutta DO 22 [place] [address] [email or web address] documented as of this encounter Results * [...] documented as of this encounter Care Teams Supervisor Lump Room Relationship Specialty Start Date End Date Parvez Cortez MD PCP - General 08/04/17 4 Parvez Cortez MD [address] [place] [address] PCP - General Family Medicine 06/01/24 Fern Blackburn MD [address] [place] [address] Katerin 3 [place] [address] Gastroenterology 07/17/25 documented as of this encounter Additional Source Comments The information contained in this document represents components of the legal health record. It is not the complete legal health record.[facility]
--- OUTSIDE RECORDS SUMMARY | 2025-10-16 09:53 | XMS_ITS | Encounter Summary ---
Author Organization [facility] Address [address] [place] [address] Phone Care Team Providers Care Marketing Senior Recruiter Name Role Phone Parvez Cortez MD Primary Care Prov ider Parvez Cortez MD Primary Care Prov ider Fern Blackburn MD Unavailable [phone] Encounter Details Date Type Department Care Team (Late st Contact Info) Description 10/16/2021 Ancillary Orders [facility],Outside Imaging [address] [place] [address] System, Provider [place] In, [place] [address] Social History Tobacco Use Types Packs/Day Years [...] [facility] [address] [place] [address] Teto Dutta DO 22 [place] [address] [email or web address] documented as of this encounter Results * [...] documented as of this encounter Care Teams Marketing Senior Recruiter Relationship Specialty Start Date End Date Parvez Cortez MD PCP - General 08/04/17 4 Parvez Cortez MD [address] [place] [address] PCP - General Family Medicine 06/01/24 Fern Blackburn MD [address] [place] [address] Katerin 3 [place] [address] Gastroenterology 07/17/25 documented as of this encounter Additional Source Comments The information contained in this document represents components of the legal health record. It is not the complete legal health record.[facility]
== END 2025-10-16 09:25 | disposition home or self-care (01) ==
LOC: HO.MAMMO 09:24
PROVIDERS: PCP Family Medicine; Visit Provider Family Medicine
DX: N64.4 Mastodynia (principal)
CPT/HCPCS: 76642; 77062; 77066

== ENCOUNTER → 2025-10-16 09:30 | Outpatient (BNV) | payer OTHER, SELFPAY | PROVIDERS: PCP Family Medicine; Visit Provider Radiology Body Imaging | DX: R92.8 Other abnormal and inconclusive findings on diagnostic imaging of breast (principal); N64.4 Mastodynia | CPT/HCPCS: 76642; 77066; G0279 ==